=== PATIENT | male | born 1970 | race Two or more races ===

== ENCOUNTER 2017-04-29 19:31 | Inpatient (IN) | payer MEDICAID ==
[~2017-04-29] VITALS: Ht 172.7 cm; Wt 95.8 kg
[~2017-04-29 19:31] MED LIST: ALBUTEROL SULFAT2 MG TRANSTR092; ALBUTEROL2.5 MG/3 M INH; ARGININE HCL MC; ARTIFICIAL TEAR15 ML BOTH EYES; ATIVAN2 MG/ML IM; CEFEPIME 22 GM/100 M IV; CEFEPIME-D2 GM/50 ML IVPB; CENTAMIN L9 MG/15 ML GT; DUONEB 0.5-3(2.53 ML HHN; FERROUS SU300 MG/5 M GT; FLAGYL500 MG GT; FLUCONAZOL200 MG/100 IV; HEPARIN SO5000 UNIT2 SUBQ; HUMALOG100 UNIT/4 SUBQ; INVANZ1 GM IVPB; KEPPRA LIQ100 MG/1 M GT; LANTUS SOL100 UNIT/1 SUBQ; LANTUS5 UNITS SUBQ; LOVENOX10 M4 SUBQ; MAGNESIUM OXID400 M1 GT; MAGNESIUM OXID500 M1 GT; MILK OF MA2400 MG/10 ORAL; MILK OF MA400 MG/51 GT; MIRALAX17 GM ORAL; MUCOMYST200 MG/ML TRANSTR092; MULTI-DELYN237 ML GT; NEXIUM40 M2 GT; POTASSIUM CHLO20 ME2 ORAL; RANITIDINE HCL150 MG GT; THIAMINE HCL100 MG GT; TYLOPHEN500 MG PO; VANCOMYCIN1 GM/2502 IVPB; VITAMIN B-1100 MG GT; VITAMIN C500 M1 GT; VITAMIN C500 MG/11 GT; VITAMIN D1000 UNI1 GT; ZINC SULFATE220 M1 GT; ZOFRAN4 M1 IM; ZOFRAN4 M3 GT; ZOFRAN4 MG GT; ZOSYN 3.373.375 GM/1 IVPB
[2017-04-29 20:00] VITALS: BP 136/110
[2017-04-29 21:00] VITALS: BP 138/101
[2017-04-29 21:03] LABS: MEAN CORPUSCULAR HGB CONC 29.9 G/DL (32.0-36.0); MEAN CORPUSCULAR VOLUME 94 FL (80-99); MEAN PLATELET VOLUME 8.8 FL (6.5-10.1); PLATELET COUNT 379 K/UL (150-450); RED BLOOD COUNT 5.09 M/UL (4.70-6.10); RED CELL DISTRIBUTION WIDTH 14.9 % (11.6-14.8)
--- NOTE | 2017-04-29 21:06 | Emergency Room Report ---
History of Present Illness General Chief Complaint: Fever Source: Patient, Medical Record, EMS Present Illness HPI 46-year-old male, trach, vent dependent, G2, neurogenic bowel, bedbound nonverbal, diabetes, epilepsy, ? Rights sided pleural effusion with catheter, came in with [facility], coming from jail for fever Patient noted to be diaphoretic and tachypnea, no other history is able to be obtained by the patient Patient is full code Allergies: Coded Allergies: NO KNOWN ALLERGIES (Unverified Allergy, Unknown, 01/27/15) NO KNOWN DRUG ALLERGIES (Unverified Allergy, Unknown, 06/28/15) Patient History Past Medical History: see triage record Past Surgical History: none Pertinent Family History: none Reviewed Nursing Documentation: PMH: Agreed, PSxH: Agreed Nursing Documentation-PMH Hx Cardiac Problems: Yes - Trachostomy, sepsis, epilepsy Hx Hypertension: Yes Hx Asthma: Yes Hx COPD: Yes Hx Diabetes: Yes Hx Cancer: No Hx Gastrointestinal Problems: Yes - dysphagia Hx Neurological Problems: Yes Hx Cerebrovascular Accident: Yes Hx Seizures: Yes Hx Epilepsy: Yes Hx Paralysis: Yes Hx Memory Loss: Yes Hx Concentration Difficulty: Yes Hx Speech Problem: Yes - tracheostomy Hx Aphasia: Yes Hx Dysphasia: Yes Hx Weakness: Yes Review of Systems All Other Systems: negative except mentioned in HPI Physical Exam Vital Signs Date Time Temp Pulse Resp B/P (MAP) Pulse Ox O2 Delivery O2 Flow Rate FiO2 04/29/17 19:42 99.0 112 30 136/92 98 Mechanical Ventilator 30 Sp02 EP Interpretation: reviewed, normal General Appearance: severe distress, other - Chronically ill-appearing overweight male, nonverbal, trach, in respiratory distress, diaphoretic Head: normocephalic, atraumatic Eyes: bilateral eye normal inspection, bilateral eye PERRL, bilateral eye EOMI ENT: other - +trach'ed Neck: other - +trach'ed Respiratory: other - +resp distress, vent, mech b/s b/l, tachypneic, +R sided thoracentesis catheter? Cardiovascular #1: normal peripheral pulses, tachycardia Cardiovascular #2: 2+ radial (R), 2+ radial (L) Gastrointestinal: other - +G tube in place, abdomen distended Genitourinary: other - byrnes in place Musculoskeletal: other - passive full ROM Neurologic: other - awake, nonverbal, not ff commands Skin: normal inspection, normal color, no rash, warm/dry, well hydrated, normal turgor Procedures Critical Care Time Critical Care Time 40 minutes of CC time 46-year-old male, fever VS: febrile, tachycardic PLAN: IV access, labs, lactate, troponin, Blood/Urine Cx, Abx, IVF Anticipate admission to Tele vs. [facility] CC time also includes review of labs, review of EMR, discussion with family and paperwork from SNF, d/w hospitalist CC could include dosing of pressors, additional Abx CC time does not include procedures Medical Decision Making Diagnostic Impression: Primary Impression: Severe sepsis Additional Impressions: UTI (urinary tract infection) Respiratory failure Tracheostomy dependence ER Course 46-year-old male, coming from jail, trach, vent, fever DDX: Sepsis 2/2 UTI, PNA, bacteremia, will also consider intra-abdominal pathology such as colitis / diverticulitis / acalculous cholecystitis if no other course found Plan: IV access - 30cc/kg bolus NS Obtain labs including cbc, bmp, blood culture, blood gas, lactate, ua, ucx CXR EKG Broad spectrum ABX ER course: Patient with tracheostomy, connected to a ventilator Patient given NS at 30cc/kg bolus Patient's BP has remained stable with MAP > 65 Given broad spectrum abx - vancomycin and zosyn Likely source is UTI Sepsis Re-examination Time: 9:50 VS: Temp 99 HR 120 BP 137/110 RR 25 CVS: RRR Respiratory: mech b/s b/l Peripheral pulses: 2+ radial Capillary refill: <2 seconds Skin exam: warm, dry, no rash, not mottled Disposition: Patient will admitted to ICU Patient requires close monitoring of respiratory/hemodynamic status and continuation of IV antibiotics. D/W Hospitalist Dr Granda (who is covering for Dr Wallace) Please note that this Emergency Department Report was dictated using [employer] technology software, occasionally this can lead to erroneous entry secondary to interpretation by the dictation equipment. EKG Diagnostic Results EP Interpretation: Yes Rate: tachy Rhythm: NSR ST Segments: poor ekg quality due to moving, tried mult times, however no obvious acute STT changes ASA given to patient: No Rhythm Strip EP Interpretation: Yes Rate: 140 Rhythm: NSR, no PVCs, no ectopy Chest X-ray CXR: Ordered: Yes 1 view Indication: Fever EP interpretation: Yes Interpretation: cardiomegaly, trach noted Impression: cardiomegaly Electronically signed by Armand Salcido MD Last Vital Signs Date Time Temp Pulse Resp B/P (MAP) Pulse Ox O2 Delivery O2 Flow Rate FiO2 04/29/17 20:46 89 45 30 04/29/17 19:42 99.0 136/92 98 Mechanical Ventilator Disposition: ADMITTED INPATIENT Condition: Critical Referrals: MEGHA WALLACE (PCP) Armand Salcido M.D. Apr 29, 2017 21:06
[2017-04-29 21:10] LABS: APPEARANCE,URINE SLIGHTLY CLOUDY; KETONES,URINE NEGATIVE (NEGATIVE); LEUKOCYTE ESTERASE ,URINE 3+ (NEGATIVE); NITRITE,URINE POSITIVE (NEGATIVE); PH,URINE 6 (4.5-8.0); PROTEIN,URINE 3+ (NEGATIVE); UROBILINOGEN,URINE NORMAL MG/DL (0.0-1.0)
[2017-04-29 21:18] LABS: ANION GAP 15 mmol/L (5-15); CALCIUM 10.7 MG/DL (8.5-10.1); CARBON DIOXIDE 26 MMOL/L (21-32); CHLORIDE 98 MMOL/L (98-107); CREATININE 0.8 MG/DL (0.55-1.30); GLOMERULAR FILTRATION RATE > 60 mL/min (>60); POTASSIUM 5.1 MMOL/L (3.5-5.1); SODIUM 139 MMOL/L (136-145)
[2017-04-29 21:21] LABS: AMORPHOUS SEDIMENT,UR FEW /LPF; BACTERIA,URINE MODERATE /HPF; RBC,URINE 15-20 /HPF (0 - 0)
[2017-04-29] MEDS ORDERED: Zosyn 3.375gm inj ONE (21:25)
[2017-04-29 21:28] LABS: REFLEX LACTIC ACID YES OR NO YES
[2017-04-29] MEDS ORDERED: Piperacillin/Tazobactam 3.375 GM in NS 55 ML IV ONE (21:30)
[2017-04-29] MEDS ORDERED: NS 1000ml 2,600 ML IVLG ONE (21:30)
[2017-04-29] MEDS ORDERED: Vancomycin 1.5gm/D5W 250ml 250 ML IVPB ONE (21:30)
[2017-04-29] MEDS ORDERED: Acetaminophen 650 MG SUPP RECTAL ONE (21:30)
[2017-04-29 21:33] LABS: ALANINE AMINOTRANSFERASE 98 U/L (12-78); ALBUMIN/GLOBULIN RATIO 0.5 (1.0-2.7); ASPARTATE AMINO TRANSFERASE 41 U/L (15-37); CKMB 1.3 NG/ML (0.0-3.6); TOTAL PROTEIN 10.5 G/DL (6.4-8.2)
[2017-04-29 22:00] VITALS: BP 134/94
[2017-04-29 22:36] LABS: BAND NEUTROPHILS % (MANUAL) 0 % (0-8); BASOPHILS % (MANUAL) 1 % (0-2); EOSINOPHILS % (MANUAL) 1 % (0-3); LYMPHOCYTES % (MANUAL) 25 % (20-45); NEUTROPHILS % (MANUAL) 66 % (45-75); PLATELET ESTIMATE ADEQUATE; PLATELET MORPHOLOGY NORMAL; TOTAL CELLS COUNTED 100
[2017-04-29 22:44] LABS: ABG ALLEN TEST POSITIVE; ABG BASE EXCESS -4.9; ABG PCO2 32.7 mmHg (35.0-45.0)
[2017-04-29 23:00] VITALS: BP 130/84
[2017-04-30] VITALS (22 sets, daily range): BP systolic 93–131; BP diastolic 50–93
[2017-04-30] MEDS ORDERED: Acetaminophen 650 MG SUPP RECTAL ONE (03:00)
[2017-04-30] MEDS ORDERED: ACETAMINOP160 MG/5 M ORAL ×2 (04:25)
[2017-04-30] MEDS ORDERED: CRANBERRY JUIC425 MG PO (04:26)
[2017-04-30] MEDS ORDERED: LACTULOSE20 GM/301 ORAL (05:01)
[2017-04-30] MEDS ORDERED: METFORMIN HCL1000 M1 GT (05:01)
[2017-04-30] MEDS ORDERED: LEVAQUIN500 MG GT (05:01)
[2017-04-30] MEDS ORDERED: Albuterol/Ipratropium 3ml neb HHN PRN (09:15)
--- NOTE | 2017-04-30 09:29 | Pulmonolgy Critical Care Note ---
Critical Care - Asmt/Plan Problems: (1) Sepsis (2) Acute and chronic respiratory failure (3) Pneumonia (4) Chronic vegetative state (5) Status post tracheostomy (6) Wound of sacral region (7) Chronic complete quadriplegia (8) Respiratory failure (9) Ventilator dependent (10) UTI (urinary tract infection) (11) Fever Assessment/Plan: -ICU care -IVF hydration, monitor vitals, justin LA -F/U ECG/trop, F/U TTE -Continue ventilatory support, settings reviewed -CXR -Start Erta/Flagyl/vanco/flucon based on current O/P list + F/U Cx's (urine, trach, blood, pleural) & await ID recs -Optimize pulmonary hygiene/mobilize as tolerated -RTC and PRN DUOnebs -Start TF's, monitor residuals -Continue AED's -DVT Px: Hep SQ -Wound care -Monitor volumes -F/C, discuss GOC cc 60 min Critical Care - Objective Last 24 Hour Vital Signs Date Time Temp Pulse Resp B/P (MAP) Pulse Ox O2 Delivery O2 Flow Rate FiO2 04/30/17 08:20 99.2 115 18 113/87 100 Mechanical Ventilator 30 04/30/17 07:16 98 18 30 04/30/17 06:19 99.2 115 21 113/87 100 Mechanical Ventilator 30 04/30/17 05:40 102 21 30 04/30/17 05:15 99.6 110 18 111/78 100 Mechanical Ventilator 30 04/30/17 04:59 99.6 04/30/17 04:09 100.5 121 18 107/50 100 Mechanical Ventilator 30 04/30/17 03:38 112 18 30 04/30/17 03:10 101.6 122 18 131/92 100 Mechanical Ventilator 30 04/30/17 02:00 99.6 119 18 128/93 100 Mechanical Ventilator 30 04/30/17 01:32 121 18 30 04/30/17 01:05 99.4 119 24 128/93 100 Mechanical Ventilator 30 04/30/17 00:05 99.4 115 20 131/90 100 Mechanical Ventilator 30 04/29/17 23:41 115 47 30 04/29/17 23:00 99.4 120 24 130/84 100 Mechanical Ventilator 30 04/29/17 22:36 99.4 04/29/17 22:00 99.0 118 24 134/94 100 Mechanical Ventilator 30 04/29/17 21:00 99.1 122 28 138/101 100 Mechanical Ventilator 30 04/29/17 20:46 89 45 30 04/29/17 20:03 97 33 30 04/29/17 20:00 30 04/29/17 20:00 99.1 132 30 136/110 100 Mechanical Ventilator 30 04/29/17 19:42 99.0 112 30 136/92 98 Mechanical Ventilator 30 Status: awake, other - non-verbal Condition: critical HEENT: atraumatic, normocephalic Neck: trach Lungs: rhonchi, other - R pigtal pleural catheter Heart: HR/BP stable Abdomen: soft, non-tender, active bowel sounds, feeding tube Extremities: no C/C/E Accucheck: 170 Critical Care - Subjective ROS Limited/Unobtainable: Yes ICU Day: 1 Intubation Day: trach Interval Events: 46 m PVC, h/o multiple resistant infections, PEG/TRACH + R pigtail pleural indwelling catheter BIB EMS from SNF with Temp 104, Tm here 101.6, thick secretions, LA 8.5 now 4.0, stable on vent with minimal O2 needs, no hx obtainable from patient. SNF and ER records reviewed. S/P Pip-Tazo and Vanco in ED. FI02: 30 Vent Support Breath Rate: 12 Vent Support Mode: AC Vent Tidal Volume: 600 Sputum Amount: Moderate PEEP: 5.0 PIP: 40 I&O: Intake and Output 04/30/17 05/01/17 19:00 07:00 Intake Total 0 ml Balance 0 ml Intake Oral 0 ml ALLEGRA BRENNER M.D. Apr 30, 2017 09:29
[2017-04-30] MEDS ORDERED: Miralax 17gm pkt ORAL PRN (09:30)
[2017-04-30] MEDS ORDERED: Ertapenem 1 GM in NS 55 ML IVPB SCH (10:30)
[2017-04-30 11:37] LABS: REFLEX LACTIC ACID YES OR NO YES
[2017-04-30] MEDS: levETIRAcetam 500mg/5ml Liquid GT SCH ×2 (12:08→20:33)
[2017-04-30] MEDS: Artificial Tears 1.4% Op Soln BOTH EYES SCH ×3 (12:09→23:42)
[2017-04-30] MEDS: Vancomycin 1.5 GM/D5W 250ML IVPB SCH ×2 (12:09→23:43)
[2017-04-30] MEDS: NovoLOG Insulin Flexpen SUBQ SCH ×3 (12:13→20:43)
--- NOTE | 2017-04-30 12:30 | Consultation ---
Consult Note Consult Note ID DIC # [id number] RAMYA RECIO M.D. Apr 30, 2017 12:30
--- NOTE | 2017-04-30 12:53 | Diagnostic Imaging Report ---
Indication: Dyspnea Comparison: 04/10/2016 A single view chest radiograph was obtained. Findings: Linear densities at the lung bases likely atelectasis or scarring. Heart is borderline in size. There is a tracheostomy present. Bones are osteopenic. IMPRESSION: Basilar atelectasis and/or scarring
[2017-04-30] MEDS: Albuterol/Ipratropium 3ml neb HHN SCH ×2 (13:08→20:49)
[2017-04-30] MEDS: Meropenem 1 GM in NS 55 ML IVPB SCH ×2 (14:41→21:40)
--- NOTE | 2017-04-30 16:45 | Consultation ---
DATE OF CONSULTATION: 04/30/2017 INFECTIOUS DISEASE CONSULTATION CONSULTING PHYSICIAN: Esteban Payton M.D. REQUESTING PHYSICIAN: Honey Granda M.D. REASON FOR CONSULTATION: Evaluation of the patient for sepsis and antibiotic management. HISTORY OF PRESENT ILLNESS: The patient is a 46-year-old male with multiple medical problems, who was admitted to this medical center for fever. The patient was found to have mild drainage from the PleurX site. The patient has been started on IV antibiotics. An Infectious Disease consultation has been requested for further evaluation of the patient and antibiotic management. The patient is not able to provide information. Much of the information is gathered through the chart and speaking to the staff. PAST MEDICAL HISTORY: 1. CVA. 2. Seizure disorder. 3. Aphasia. 4. Status post trach. 5. Hypertension. 6. COPD/asthma. 7. Status post PEG placement. 8. Obesity. 9. Diabetes. 10. Anemia. 11. Ventilator-dependent respiratory failure. 12. Status post PleurX catheter (question underlying etiology). 13. Recent history of MRSA bacteremia with probable mitral valve endocarditis. MEDICATIONS: Vancomycin, Diflucan, and ertapenem. PHYSICAL EXAMINATION: VITAL SIGNS: Temperature 99.2, blood pressure 113/87, pulse 86, respiratory rate 18, and T-max 101.6. HEENT: No pale conjunctivae. No icterus. NECK: Trach in place. CHEST: Course breathing sounds. HEART: S1 and S2. ABDOMEN: Soft and obese. PEG tube in place. EXTREMITIES: No cyanosis. SKIN: The patient has stage II decubitus in the sacral area. No sign of infection. PleurX site has mild erythema with mild purulent discharge. ASSESSMENT: 1. Sepsis. 2. Fever. 3. Leukocytosis. 4. History of methicillin-resistant Staphylococcus aureus bacteremia with possible mitral valve endocarditis. 5. History of acute renal failure (? possible due to vancomycin). 6. History of extended-spectrum beta-lactamase Escherichia coli and urinary tract infection. 7. Sacral decubitus, no sign of infection. 8. Possible PleurX catheter site infection. PLAN: 1. We will continue the patient on IV vancomycin for now (we will monitor creatinine closely). 2. Change Diflucan and Invanz to meropenem. 3. Monitor CBC. 4. Monitor BMP. 5. Culture from the PleurX site. 6. Culture from pleural effusion (it is mildly cloudy and greenish). 7. Monitor blood culture. 8. Monitor sputum culture. 9. Monitor urine culture. 10. Repeat sacral evaluation of possible vegetation. 11. Continue vent support. 12. Based on the patient's clinical course and laboratories, we will do further recommendation. Thank you, Dr. Granda, for allowing me to participate in the care of this patient. I will follow the patient with you during this hospitalization. Esteban Payton M.D. DR: RAIN JOB#: [id number] CC:
[2017-04-30] MEDS: metFORMIN 500mg tab GT SCH (18:04)
[2017-04-30] MEDS: Lactulose 20gm/30ml UDC ORAL SCH (18:04)
[2017-04-30] MEDS: Ferrous Sulfate 300 MG/5 ML UDC GT SCH (18:04)
[2017-04-30] MEDS: Levemir Flexpen SUBQ SCH (20:39)
[2017-04-30] MEDS: Heparin 5000 units/ml inj SUBQ SCH (20:46)
[2017-05-01] VITALS (24 sets, daily range): BP systolic 86–118; BP diastolic 54–74
[2017-05-01] MEDS: Albuterol/Ipratropium 3ml neb HHN SCH ×4 (01:30→19:57)
[2017-05-01] MEDS: Meropenem 1 GM in NS 55 ML IVPB SCH ×3 (06:14→21:35)
[2017-05-01] MEDS: Artificial Tears 1.4% Op Soln BOTH EYES SCH ×3 (06:15→17:02)
[2017-05-01] MEDS: NovoLOG Insulin Flexpen SUBQ SCH ×3 (06:21→17:48)
--- NOTE | 2017-05-01 08:22 | History & Physical ---
History and Physical History & Physicial patient is seen and examined. Dictation completed Honey Granda MD May 01, 2017 08:22
[2017-05-01] MEDS: Lactulose 20gm/30ml UDC ORAL SCH ×2 (09:07→17:03)
[2017-05-01] MEDS: Ferrous Sulfate 300 MG/5 ML UDC GT SCH ×2 (09:07→17:02)
[2017-05-01] MEDS: Thiamine 100mg tab GT SCH (09:08)
[2017-05-01] MEDS: levETIRAcetam 500mg/5ml Liquid GT SCH ×2 (09:08→20:56)
[2017-05-01] MEDS: Zinc Sulfate 220mg cap GT SCH (09:08)
[2017-05-01] MEDS: metFORMIN 500mg tab GT SCH ×2 (09:08→17:02)
[2017-05-01] MEDS: Ascorbic Acid 500mg tab GT SCH (09:08)
[2017-05-01] MEDS: Heparin 5000 units/ml inj SUBQ SCH ×2 (09:09→20:58)
--- NOTE | 2017-05-01 09:23 | Pulmonolgy Critical Care Note ---
Critical Care - Asmt/Plan Problems: (1) Sepsis (2) Acute and chronic respiratory failure (3) Pneumonia (4) Chronic vegetative state (5) Status post tracheostomy (6) Wound of sacral region (7) Chronic complete quadriplegia (8) Respiratory failure (9) Ventilator dependent (10) UTI (urinary tract infection) (11) Fever Assessment/Plan: -F/U AML and ABG -IVF hydration, monitor vitals -F/U TTE -Continue ventilatory support, settings reviewed, check ABG and adjust accordingly -Abx per ID, F/U Cx's -Optimize pulmonary hygiene/mobilize as tolerated -RTC and PRN DUOnebs -TF's as tolerated -Continue AED's -DVT Px: Hep SQ -Wound care -Monitor volumes -F/C, discuss GOC cc 45 min Critical Care - Objective Last 24 Hour Vital Signs Date Time Temp Pulse Resp B/P (MAP) Pulse Ox O2 Delivery O2 Flow Rate FiO2 05/01/17 08:00 30 05/01/17 08:00 98.3 76 16 92/54 97 Mechanical Ventilator 30 05/01/17 07:44 85 12 66 Mechanical Ventilator 05/01/17 07:28 79 12 100 30 05/01/17 07:25 79 12 30 05/01/17 07:00 93 16 100/63 99 Mechanical Ventilator 30 05/01/17 06:00 93 16 92/60 99 Mechanical Ventilator 30 05/01/17 05:41 101 16 30 05/01/17 05:00 93 16 100/67 99 Mechanical Ventilator 30 05/01/17 04:00 98.6 83 16 95/67 99 Mechanical Ventilator 30 05/01/17 04:00 90 05/01/17 04:00 30 05/01/17 03:00 93 16 105/66 99 Mechanical Ventilator 30 05/01/17 02:44 94 20 30 05/01/17 02:00 93 16 92/67 99 Mechanical Ventilator 30 05/01/17 01:48 98 17 100 Mechanical Ventilator 30 05/01/17 01:31 30 05/01/17 01:31 87 16 30 05/01/17 01:31 88 32 100 30 05/01/17 01:00 84 20 94/69 99 Mechanical Ventilator 30 05/01/17 00:00 81 05/01/17 00:00 98.5 82 20 90/66 99 Mechanical Ventilator 30 05/01/17 00:00 30 04/30/17 23:00 79 12 93/72 99 Mechanical Ventilator 30 04/30/17 22:00 81 12 95/67 99 Mechanical Ventilator 30 04/30/17 21:00 85 12 95/67 99 Mechanical Ventilator 30 04/30/17 20:49 87 13 30 04/30/17 20:48 87 15 100 30 04/30/17 20:48 88 17 100 Mechanical Ventilator 30 04/30/17 20:48 30 04/30/17 20:36 97 14 30 04/30/17 20:00 30 04/30/17 20:00 97.4 84 14 97/64 100 Mechanical Ventilator 30 04/30/17 20:00 78 04/30/17 20:00 94 04/30/17 19:00 86 12 101/66 100 Mechanical Ventilator 30 04/30/17 18:00 79 12 101/66 100 Mechanical Ventilator 30 04/30/17 16:51 93 18 30 04/30/17 16:00 97.4 94 12 108/73 100 Mechanical Ventilator 30 04/30/17 16:00 30 04/30/17 16:00 94 04/30/17 15:00 98 13 108/74 100 Mechanical Ventilator 30 04/30/17 14:31 97 20 30 04/30/17 14:00 107 14 106/78 100 Mechanical Ventilator 30 04/30/17 13:16 101 16 100 Mechanical Ventilator 30 04/30/17 13:09 105 20 100 30 04/30/17 13:08 105 20 30 04/30/17 13:00 107 14 104/75 100 Mechanical Ventilator 30 04/30/17 12:00 30 04/30/17 12:00 100.4 107 19 110/93 94 Mechanical Ventilator 30 04/30/17 12:00 117 04/30/17 11:00 104 14 109/69 100 Mechanical Ventilator 30 04/30/17 10:38 104 21 30 04/30/17 10:00 105 13 103/72 100 Mechanical Ventilator 30 04/30/17 09:29 108 21 30 Status: obtunded Condition: critical HEENT: atraumatic, normocephalic Neck: trach Lungs: chest wall tender Heart: HR/BP stable Abdomen: soft, non-tender, active bowel sounds, feeding tube Extremities: no C/C/E Decubiti: location - sacral\, stage Micro: Microbiology Date/Time Source Procedure Growth Status 04/29/17 20:35 Blood Blood Culture - Preliminary NO GROWTH AFTER 24 HOURS Resulted 04/29/17 20:30 Blood Blood Culture - Preliminary NO GROWTH AFTER 24 HOURS Resulted 04/29/17 20:30 Urine,Clean Catch Urine Culture - Preliminary Gram Negative Bacillus 1 Resulted Accucheck: 192 Critical Care - Subjective ROS Limited/Unobtainable: Yes ICU Day: 2 Intubation Day: N/A trach Interval Events: LA resolved No sig secretions No AML GNB in urine, BCx still NG Condition: critical IV Access: PICC EKG Rhythm: Sinus Rhythm FI02: 30 Vent Support Breath Rate: 12 Vent Support Mode: AC Vent Tidal Volume: 600 Sputum Amount: Small PEEP: 5.0 PIP: 24 Secretions: No Sign Fluids: NS @ 100 Tube Feeding Amount: 40 I&O: Intake and Output 05/01/17 05/02/17 19:00 07:00 Intake Total 40 ml Output Total 45 ml Balance -5 ml Tube Feeding 40 ml Output Urine Total 45 ml CXR: NAD Labs: Laboratory Tests Test 04/30/17 10:40 Hemoglobin A1c 7.5 % (4.3-6.0) H Lactic Acid Level 2.20 mmol/L (0.66-2.22) Troponin I 0.000 ng/mL (0.000-0.056) ALLEGRA BRENNER M.D. May 01, 2017 09:23
[2017-05-01 10:15] LABS: ABG PCO2 38.9 mmHg (35.0-45.0)
[2017-05-01 10:16] LABS: ABG ALLEN TEST POSITIVE; ABG BASE EXCESS -0.7
--- NOTE | 2017-05-01 11:03 | Infectious Diseases Prog Note ---
Assessment/Plan Assessment/Plan ASSESSMENT: Sepsis. Fever, SP Leukocytosis UTI Ucx : GNR History of methicillin-resistant Staphylococcus aureus bacteremia with possible mitral valve endocarditis History of acute renal failure (? possible due to vancomycin) History of extended-spectrum beta-lactamase Escherichia coli and urinary tract infection Sacral decubitus, no sign of infection Possible PleurX catheter site infection. SP LACosis CVA. Seizure disorder. Aphasia. Status post trach. Hypertension. COPD/asthma. Status post PEG placement. Obesity. Diabetes. Anemia. Ventilator-dependent respiratory failure. Status post PleurX catheter (question underlying etiology). Recent history of MRSA bacteremia with probable mitral valve endocarditis PLAN: continue the patient on IV vancomycin for now (we will monitor creatinine closely) and meropenem d# 2 Monitor CBC Monitor BMP. Culture from the PleurX site. Culture from pleural effusion (it is mildly cloudy and greenish). Monitor blood culture. Monitor sputum culture. Monitor urine culture. Repeat Echo possible vegetation. Continue vent support. Subjective Allergies: Coded Allergies: NO KNOWN ALLERGIES (Unverified Allergy, Unknown, 01/27/15) NO KNOWN DRUG ALLERGIES (Unverified Allergy, Unknown, 06/28/15) Subjective Afebrile Objective Vital Signs Last 24 Hour Vital Signs Date Time Temp Pulse Resp B/P (MAP) Pulse Ox O2 Delivery O2 Flow Rate FiO2 05/01/17 10:00 77 16 90/58 95 Mechanical Ventilator 30 05/01/17 09:45 77 12 30 05/01/17 09:00 79 16 86/56 96 Mechanical Ventilator 30 05/01/17 08:00 30 05/01/17 08:00 98.3 76 16 92/54 97 Mechanical Ventilator 30 05/01/17 08:00 80 05/01/17 07:44 85 12 66 Mechanical Ventilator 05/01/17 07:28 79 12 100 30 05/01/17 07:25 79 12 30 05/01/17 07:00 93 16 100/63 99 Mechanical Ventilator 30 05/01/17 06:00 93 16 92/60 99 Mechanical Ventilator 30 05/01/17 05:41 101 16 30 05/01/17 05:00 93 16 100/67 99 Mechanical Ventilator 30 05/01/17 04:00 98.6 83 16 95/67 99 Mechanical Ventilator 30 05/01/17 04:00 90 05/01/17 04:00 30 05/01/17 03:00 93 16 105/66 99 Mechanical Ventilator 30 05/01/17 02:44 94 20 30 05/01/17 02:00 93 16 92/67 99 Mechanical Ventilator 30 05/01/17 01:48 98 17 100 Mechanical Ventilator 30 05/01/17 01:31 30 05/01/17 01:31 87 16 30 05/01/17 01:31 88 32 100 30 05/01/17 01:00 84 20 94/69 99 Mechanical Ventilator 30 05/01/17 00:00 81 05/01/17 00:00 98.5 82 20 90/66 99 Mechanical Ventilator 30 05/01/17 00:00 30 04/30/17 23:00 79 12 93/72 99 Mechanical Ventilator 30 04/30/17 22:00 81 12 95/67 99 Mechanical Ventilator 30 04/30/17 21:00 85 12 95/67 99 Mechanical Ventilator 30 04/30/17 20:49 87 13 30 17 20:48 87 15 100 30 04/30/17 20:48 88 17 100 Mechanical Ventilator 30 04/30/17 20:48 30 17 20:36 97 14 30 18/17 20:00 30 17 20:00 97.4 84 14 97/64 100 Mechanical Ventilator 30 04/30/17 20:00 78 17 20:00 94 18/17 19:00 86 12 101/66 100 Mechanical Ventilator 30 17 18:00 79 12 101/66 100 Mechanical Ventilator 30 17 16:51 93 18 30 17 16:00 97.4 94 12 108/73 100 Mechanical Ventilator 30 18/17 16:00 30 18/17 16:00 94 18/17 15:00 98 13 108/74 100 Mechanical Ventilator 30 04/30/17 14:31 97 20 30 18/17 14:00 107 14 106/78 100 Mechanical Ventilator 30 18/17 13:16 101 16 100 Mechanical Ventilator 30 18/17 13:09 105 20 100 30 18/17 13:08 105 20 30 18/17 13:00 107 14 104/75 100 Mechanical Ventilator 30 18/17 12:00 30 17 12:00 100.4 107 19 110/93 94 Mechanical Ventilator 30 04/30/17 12:00 117 Height (Feet): 5 Height (Inches): 8.00 Weight (Pounds): 189 HEENT: mucous membranes moist Respiratory/Chest: normal breath sounds Cardiovascular: regular rhythm Abdomen: non distended Microbiology Date/Time Source Procedure Growth Status 04/29/17 20:35 Blood Blood Culture - Preliminary NO GROWTH AFTER 24 HOURS Resulted 04/29/17 20:30 Blood Blood Culture - Preliminary NO GROWTH AFTER 24 HOURS Resulted 04/29/17 20:30 Urine,Clean Catch Urine Culture - Preliminary Gram Negative Bacillus 1 Resulted Laboratory Tests Test 05/01/17 10:10 Arterial Blood pH 7.406 (7.350-7.450) Arterial Blood Partial Pressure CO2 38.9 mmHg (35.0-45.0) Arterial Blood Partial Pressure O2 175.5 mmHg (75.0-100.0) H Arterial Blood HCO3 23.9 mmol/L (22.0-26.0) Arterial Blood Oxygen Saturation 98.5 % (92.0-98.0) H Arterial Blood Base Excess -0.7 Donald Test Positive Current Medications Medications (Trade) Dose Ordered Sig/Tony Route PRN Reason Start Time Stop Time Status Last Admin Dose Admin Acetaminophen (Tylenol) 650 mg Q4H PRN ORAL Mild Pain/Temp > 100.5 04/30/17 09:15 05/30/17 09:14 Albuterol/ Ipratropium (Albuterol/ Ipratropium) 3 ml Q4H PRN HHN Shortness of Breath 04/30/17 09:15 05/05/17 09:14 Albuterol/ Ipratropium (Albuterol/ Ipratropium) 3 ml Q6HRT HHN 04/30/17 13:00 05/05/17 12:59 05/01/17 07:24 Artificial Tears (Akwa-Tears) 1 drop EVERY 6 HOURS BOTH EYES 04/30/17 12:00 05/30/17 11:59 05/01/17 06:15 Ascorbic Acid (Vitamin C) 500 mg DAILY GT 05/01/17 09:00 05/31/17 08:59 05/01/17 09:08 Dextrose (Dextrose 50%) STAT PRN IV Hypoglycemia 04/30/17 09:30 05/30/17 09:29 Ferrous Sulfate (Feosol) 450 mg BID GT 04/30/17 18:00 05/30/17 17:59 05/01/17 09:07 Heparin Sodium (Porcine) (Heparin 5000 units/ml) 5,000 units EVERY 12 HOURS SUBQ 04/30/17 21:00 05/30/17 20:59 05/01/17 09:09 Insulin Aspart (NovoLOG) Q6HR SUBQ 05/01/17 12:00 05/30/17 11:29 Insulin Detemir (Levemir) 10 units BEDTIME SUBQ 04/30/17 21:00 05/30/17 20:59 04/30/17 20:39 Lactulose (Cephulac) 20 gm BID ORAL 04/30/17 18:00 05/30/17 17:59 05/01/17 09:07 Levetiracetam (Keppra) 500 mg Q12HR GT 04/30/17 10:00 05/30/17 09:59 05/01/17 09:08 Meropenem 1 gm/ Sodium Chloride 55 ml @ 110 mls/hr Q8HR IVPB 04/30/17 14:00 05/05/17 13:59 05/01/17 06:14 Metformin HCl (Glucophage) 1,000 mg BID GT 04/30/17 18:00 05/30/17 17:59 05/01/17 09:08 Ondansetron HCl (Zofran) 4 mg Q6H PRN IVP Nausea & Vomiting 04/30/17 09:15 05/30/17 09:14 Polyethylene Glycol (Miralax) 17 gm DAILYPRN PRN ORAL Constipation 04/30/17 09:30 05/30/17 09:29 Ranitidine HCl (Zantac) 150 mg TWICE A DAY ORAL 04/30/17 18:00 05/30/17 17:59 05/01/17 09:08 Sodium Chloride 1,000 ml @ 100 mls/hr Q10H IV 04/30/17 10:30 05/30/17 10:29 05/01/17 06:27 Thiamine HCl (Vitamin B1) 100 mg DAILY GT 05/01/17 09:00 05/31/17 08:59 05/01/17 09:08 Vancomycin HCl (Vanco rx to dose) 1 ea DAILY PRN MISC Per rx protocol 04/30/17 09:15 05/30/17 09:14 Vancomycin HCl/ Dextrose 250 ml @ 125 mls/hr Q12HR@0000,1200 IVPB 04/30/17 12:00 05/05/17 11:59 04/30/17 23:43 Zinc Sulfate (Zinc Sulfate) 220 mg DAILY GT 05/01/17 09:00 05/31/17 08:59 05/01/17 09:08 RAMYA RECIO M.D. May 01, 2017 11:03
[2017-05-01 11:12] LABS: BASOPHILS % (AUTO) 0.8 % (0.0-2.0); EOSINOPHILS % (AUTO) 2.6 % (0.0-3.0); LYMPHOCYTES % (AUTO) 22.1 % (20.0-45.0); MEAN CORPUSCULAR HEMOGLOBIN 30.1 PG (27.0-31.0); MEAN CORPUSCULAR HGB CONC 32.7 G/DL (32.0-36.0); MEAN CORPUSCULAR VOLUME 92 FL (80-99); MEAN PLATELET VOLUME 9.8 FL (6.5-10.1); MONOCYTES % (AUTO) 8.9 % (1.0-10.0); NEUTROPHILS % (AUTO) 65.6 % (45.0-75.0); PLATELET COUNT 265 K/UL (150-450); RED BLOOD COUNT 3.35 M/UL (4.70-6.10); RED CELL DISTRIBUTION WIDTH 14.8 % (11.6-14.8); WHITE BLOOD COUNT 9.5 K/UL (4.8-10.8)
[2017-05-01 11:24] LABS: ANION GAP 10 mmol/L (5-15); CALCIUM 9.1 MG/DL (8.5-10.1); CARBON DIOXIDE 24 MMOL/L (21-32); CHLORIDE 105 MMOL/L (98-107); CREATININE 0.5 MG/DL (0.55-1.30); GLOMERULAR FILTRATION RATE > 60 mL/min (>60); POTASSIUM 3.7 MMOL/L (3.5-5.1); SODIUM 139 MMOL/L (136-145)
[2017-05-01] MEDS: Vancomycin 1.5 GM/D5W 250ML IVPB SCH (11:50)
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
--- NOTE | 2017-05-01 16:15 | History and Physical Report ---
DATE OF ADMISSION: 04/29/2017 SOURCE OF INFORMATION: Electronic medical record. HISTORY OF PRESENT ILLNESS: The patient is a 46-year-old male, who is bedbound, on PEG and tube. Source, not communicating verbally. Limited source of information. [facility]. He was noted to be diaphoretic and with tachycardia, otherwise, rest of information is not obtainable. PAST MEDICAL HISTORY: Hypertension, asthma, COPD, diabetes, dysphagia, seizure disorder, and quadriplegia. MEDICATIONS: Current hospital medications including, but not limited to DuoNeb, ferrous sulfate, sliding scale insulin, lactulose, Levemir, Keppra, and metformin. ALLERGIES: NKDA. SOCIAL HISTORY: Unobtainable. The patient [facility] in a [facility]it[facility]iary. REVIEW OF SYSTEMS: Not obtainable as above. PHYSICAL EXAMINATION: VITAL SIGNS: Blood pressure 95/60, temperature 98.2 degrees, pulse oximetry 98% on room air, pulse rate 80-90, T-max 101.6, maximum pulse rate 120. HEAD AND NECK: Atraumatic and normocephalic. Neck, tracheostomy in place. CHEST: Clear. No wheezing. HEART: S1 and S2. Sinus tachycardia. ABDOMEN: Soft. PEG tube in place. MUSCULOSKELETAL: Atrophic musculature, quadriplegia. NEUROLOGIC: The patient is not communicating verbally. The patient is awake. IMAGING: Chest x-ray dated 04/29/2017 shows bibasilar atelectasis. LABORATORY DATA: Labs dated 04/29/2017 shows WBC 18, hemoglobin 14.3, and platelets 379,000. Sodium 139, potassium 5.1, BUN 18, creatinine 0.8, and calcium 10.7. AST 41 and ALT 98. Urinalysis shows 5+ occult blood, 10 WBC, moderate bacteriuria. Urine culture positive for gram-negative bacilli. ASSESSMENT AND PLAN: 1. Healthcare-associated sepsis. 2. Gram negative healthcare-associated urinary infection. 3. Quadriplegia. 4. Dysphagia, status post percutaneous endoscopic gastrostomy tube. 5. Ventilator dependent respiratory failure, on tracheostomy. 6. Seizure disorder. 7. Abnormal liver function test. 8. Gastrointestinal and deep vein thrombosis prophylaxis. PLAN OF CARE: Notes from Infectious Disease and Pulmonary Critical Care are reviewed. Honey Granda M.D. DR: HERBERTH JOB#: [id number] CC:
[2017-05-01] MEDS: Vancomycin 1250mg/D5W 250ml IVPB SCH (19:47)
[2017-05-01] MEDS: Levemir Flexpen SUBQ SCH (20:57)
[2017-05-02] VITALS (17 sets, daily range): BP systolic 85–124; BP diastolic 47–84
[2017-05-02] MEDS: Artificial Tears 1.4% Op Soln BOTH EYES SCH ×5 (00:16→23:43)
[2017-05-02] MEDS: NovoLOG Insulin Flexpen SUBQ SCH ×5 (00:17→23:45)
[2017-05-02] MEDS: Albuterol/Ipratropium 3ml neb HHN SCH ×4 (01:48→19:07)
[2017-05-02] MEDS: Vancomycin 1250mg/D5W 250ml IVPB SCH ×2 (03:41→11:39)
[2017-05-02] MEDS: Meropenem 1 GM in NS 55 ML IVPB SCH ×3 (05:34→21:41)
[2017-05-02] MEDS: Heparin 5000 units/ml inj SUBQ SCH ×2 (09:00→21:10)
[2017-05-02] MEDS: Zinc Sulfate 220mg cap GT SCH (09:19)
[2017-05-02] MEDS: metFORMIN 500mg tab GT SCH ×2 (09:19→18:14)
[2017-05-02] MEDS: Thiamine 100mg tab GT SCH (09:19)
[2017-05-02] MEDS: Ferrous Sulfate 300 MG/5 ML UDC GT SCH ×2 (09:19→18:14)
[2017-05-02] MEDS: Ascorbic Acid 500mg tab GT SCH (09:20)
[2017-05-02] MEDS: levETIRAcetam 500mg/5ml Liquid GT SCH ×2 (09:20→21:11)
[2017-05-02] MEDS: Lactulose 20gm/30ml UDC ORAL SCH ×2 (09:20→18:14)
--- NOTE | 2017-05-02 09:45 | General Progress Note ---
Assessment/Plan Status: stable Assessment/Plan 1. Healthcare-associated sepsis. 2. Gram negative healthcare-associated urinary infection. 3. Quadriplegia. 4. Dysphagia, status post percutaneous endoscopic gastrostomy tube. 5. Ventilator dependent respiratory failure, on tracheostomy. 6. Seizure disorder. 7. Abnormal liver function test. 8. Gastrointestinal and deep vein thrombosis prophylaxis. Plan: current management Subjective ROS Limited/Unobtainable: Yes - intubated and sedated Allergies: Coded Allergies: NO KNOWN ALLERGIES (Unverified Allergy, Unknown, 01/27/15) NO KNOWN DRUG ALLERGIES (Unverified Allergy, Unknown, 06/28/15) Objective Last 24 Hour Vital Signs Date Time Temp Pulse Resp B/P (MAP) Pulse Ox O2 Delivery O2 Flow Rate FiO2 05/02/17 09:04 68 12 30 05/02/17 08:17 67 16 100 Mechanical Ventilator 30 05/02/17 08:07 69 20 100 Mechanical Ventilator 30 05/02/17 08:00 99.0 57 12 91/53 100 05/02/17 08:00 57 05/02/17 07:24 63 14 30 05/02/17 07:00 58 14 87/54 100 Mechanical Ventilator 30 05/02/17 06:00 72 18 111/69 100 Mechanical Ventilator 30 05/02/17 05:16 79 21 30 05/02/17 05:00 68 16 107/68 100 Mechanical Ventilator 30 05/02/17 04:00 30 05/02/17 04:00 98.1 67 14 85/56 100 Mechanical Ventilator 30 05/02/17 03:32 85 20 30 05/02/17 03:12 65 05/02/17 03:00 68 13 91/52 100 Mechanical Ventilator 30 05/02/17 02:00 70 16 99/62 100 Mechanical Ventilator 30 05/02/17 01:54 75 16 100 Mechanical Ventilator 30 05/02/17 01:48 88 16 100 Mechanical Ventilator 30 05/02/17 01:47 88 21 30 05/02/17 01:00 86 20 124/78 100 Mechanical Ventilator 30 05/02/17 00:00 30 05/02/17 00:00 98.7 77 17 111/73 100 Mechanical Ventilator 30 05/01/17 23:17 78 19 30 05/01/17 23:14 79 05/01/17 23:00 80 15 106/74 100 Mechanical Ventilator 30 05/01/17 22:00 83 16 101/65 100 Mechanical Ventilator 30 05/01/17 21:00 70 16 99/63 100 Mechanical Ventilator 30 05/01/17 20:34 71 16 30 05/01/17 20:33 71 17 100 Mechanical Ventilator 30 05/01/17 20:00 98.6 75 14 107/72 100 Mechanical Ventilator 30 05/01/17 20:00 30 05/01/17 19:57 75 22 100 Mechanical Ventilator 30 05/01/17 19:56 68 14 30 05/01/17 19:04 83 05/01/17 19:00 86 16 95/58 100 Mechanical Ventilator 30 05/01/17 18:00 86 16 101/67 100 Mechanical Ventilator 30 05/01/17 17:18 85 17 30 05/01/17 17:00 85 16 118/73 95 Mechanical Ventilator 30 05/01/17 16:00 98.3 83 16 105/71 100 Mechanical Ventilator 30 05/01/17 16:00 81 05/01/17 16:00 30 05/01/17 15:50 77 12 30 05/01/17 15:00 86 16 99/69 100 Mechanical Ventilator 30 05/01/17 14:02 82 12 100 Mechanical Ventilator 30 05/01/17 14:00 83 16 105/74 100 Mechanical Ventilator 30 05/01/17 13:36 86 15 100 Mechanical Ventilator 30 05/01/17 13:34 86 14 30 05/01/17 13:00 92 15 100/62 96 Mechanical Ventilator 30 05/01/17 12:00 30 05/01/17 12:00 98.5 99 16 95/60 100 Mechanical Ventilator 30 05/01/17 12:00 100 05/01/17 11:00 96 15 96/63 100 Mechanical Ventilator 30 05/01/17 10:58 95 18 30 05/01/17 10:00 77 16 90/58 95 Mechanical Ventilator 30 Intake and Output 05/02/17 05/03/17 19:00 07:00 Intake Total 45 ml Balance 45 ml Intake Oral 0 ml Tube Feeding 45 ml Laboratory Tests 05/01/17 10:10: Arterial Blood pH 7.406, Arterial Blood Partial Pressure CO2 38.9, Arterial Blood Partial Pressure O2 175.5H, Arterial Blood HCO3 23.9, Arterial Blood Oxygen Saturation 98.5H, Arterial Blood Base Excess -0.7, Donald Test Positive 05/01/17 10:50: White Blood Count 9.5, Red Blood Count 3.35L, Hemoglobin 10.1L, Hematocrit 30.8L , Mean Corpuscular Volume 92, Mean Corpuscular Hemoglobin 30.1, Mean Corpuscular Hemoglobin Concent 32.7, Red Cell Distribution Width 14.8, Platelet Count 265, Mean Platelet Volume 9.8, Neutrophils (%) (Auto) 65.6, Lymphocytes (% ) (Auto) 22.1, Monocytes (%) (Auto) 8.9, Eosinophils (%) (Auto) 2.6, Basophils ( %) (Auto) 0.8, Sodium Level 139, Potassium Level 3.7, Chloride Level 105, Carbon Dioxide Level 24, Anion Gap 10, Blood Urea Nitrogen 9, Creatinine 0.5L, Estimat Glomerular Filtration Rate > 60, Glucose Level 146H, Calcium Level 9.1, Vancomycin Level Trough 11.6 Height (Feet): 5 Height (Inches): 8.00 Weight (Pounds): 211 General Appearance: no apparent distress EENT: PERRL/EOMI, other - trach in place Cardiovascular: normal rate Respiratory/Chest: rhonchi - bilaterally Abdomen: soft, other - Peg in place Extremities: other - intubated and sedated Neurologic: other Honey Granda MD May 02, 2017 09:45
--- NOTE | 2017-05-02 10:01 | General Progress Note ---
Assessment/Plan Assessment/Plan 1. Healthcare-associated sepsis. 2. Gram negative healthcare-associated urinary infection. 3. Quadriplegia. 4. Dysphagia, status post percutaneous endoscopic gastrostomy tube. 5. Ventilator dependent respiratory failure, on tracheostomy. 6. Seizure disorder. 7. Abnormal liver function test. 8. Gastrointestinal and deep vein thrombosis prophylaxis. Plan: current management Subjective ROS Limited/Unobtainable: Yes Allergies: Coded Allergies: NO KNOWN ALLERGIES (Unverified Allergy, Unknown, 01/27/15) NO KNOWN DRUG ALLERGIES (Unverified Allergy, Unknown, 06/28/15) Objective Last 24 Hour Vital Signs Date Time Temp Pulse Resp B/P (MAP) Pulse Ox O2 Delivery O2 Flow Rate FiO2 05/02/17 09:04 68 12 30 05/02/17 08:17 67 16 100 Mechanical Ventilator 30 05/02/17 08:07 69 20 100 Mechanical Ventilator 30 05/02/17 08:00 99.0 57 12 91/53 100 05/02/17 08:00 57 05/02/17 07:24 63 14 30 05/02/17 07:00 58 14 87/54 100 Mechanical Ventilator 30 05/02/17 06:00 72 18 111/69 100 Mechanical Ventilator 30 05/02/17 05:16 79 21 30 05/02/17 05:00 68 16 107/68 100 Mechanical Ventilator 30 05/02/17 04:00 30 05/02/17 04:00 98.1 67 14 85/56 100 Mechanical Ventilator 30 05/02/17 03:32 85 20 30 05/02/17 03:12 65 05/02/17 03:00 68 13 91/52 100 Mechanical Ventilator 30 05/02/17 02:00 70 16 99/62 100 Mechanical Ventilator 30 05/02/17 01:54 75 16 100 Mechanical Ventilator 30 05/02/17 01:48 88 16 100 Mechanical Ventilator 30 05/02/17 01:47 88 21 30 05/02/17 01:00 86 20 124/78 100 Mechanical Ventilator 30 05/02/17 00:00 30 05/02/17 00:00 98.7 77 17 111/73 100 Mechanical Ventilator 30 05/01/17 23:17 78 19 30 05/01/17 23:14 79 05/01/17 23:00 80 15 106/74 100 Mechanical Ventilator 30 05/01/17 22:00 83 16 101/65 100 Mechanical Ventilator 30 05/01/17 21:00 70 16 99/63 100 Mechanical Ventilator 30 05/01/17 20:34 71 16 30 05/01/17 20:33 71 17 100 Mechanical Ventilator 30 05/01/17 20:00 98.6 75 14 107/72 100 Mechanical Ventilator 30 05/01/17 20:00 30 05/01/17 19:57 75 22 100 Mechanical Ventilator 30 05/01/17 19:56 68 14 30 05/01/17 19:04 83 05/01/17 19:00 86 16 95/58 100 Mechanical Ventilator 30 05/01/17 18:00 86 16 101/67 100 Mechanical Ventilator 30 05/01/17 17:18 85 17 30 05/01/17 17:00 85 16 118/73 95 Mechanical Ventilator 30 05/01/17 16:00 98.3 83 16 105/71 100 Mechanical Ventilator 30 05/01/17 16:00 81 05/01/17 16:00 30 05/01/17 15:50 77 12 30 05/01/17 15:00 86 16 99/69 100 Mechanical Ventilator 30 05/01/17 14:02 82 12 100 Mechanical Ventilator 30 05/01/17 14:00 83 16 105/74 100 Mechanical Ventilator 30 05/01/17 13:36 86 15 100 Mechanical Ventilator 30 05/01/17 13:34 86 14 30 05/01/17 13:00 92 15 100/62 96 Mechanical Ventilator 30 05/01/17 12:00 30 05/01/17 12:00 98.5 99 16 95/60 100 Mechanical Ventilator 30 05/01/17 12:00 100 05/01/17 11:00 96 15 96/63 100 Mechanical Ventilator 30 05/01/17 10:58 95 18 30 Intake and Output 05/02/17 05/03/17 19:00 07:00 Intake Total 45 ml Balance 45 ml Intake Oral 0 ml Tube Feeding 45 ml Laboratory Tests 05/01/17 10:10: Arterial Blood pH 7.406, Arterial Blood Partial Pressure CO2 38.9, Arterial Blood Partial Pressure O2 175.5H, Arterial Blood HCO3 23.9, Arterial Blood Oxygen Saturation 98.5H, Arterial Blood Base Excess -0.7, Donlad Test Positive 05/01/17 10:50: White Blood Count 9.5, Red Blood Count 3.35L, Hemoglobin 10.1L, Hematocrit 30.8L , Mean Corpuscular Volume 92, Mean Corpuscular Hemoglobin 30.1, Mean Corpuscular Hemoglobin Concent 32.7, Red Cell Distribution Width 14.8, Platelet Count 265, Mean Platelet Volume 9.8, Neutrophils (%) (Auto) 65.6, Lymphocytes (% ) (Auto) 22.1, Monocytes (%) (Auto) 8.9, Eosinophils (%) (Auto) 2.6, Basophils ( %) (Auto) 0.8, Sodium Level 139, Potassium Level 3.7, Chloride Level 105, Carbon Dioxide Level 24, Anion Gap 10, Blood Urea Nitrogen 9, Creatinine 0.5L, Estimat Glomerular Filtration Rate > 60, Glucose Level 146H, Calcium Level 9.1, Vancomycin Level Trough 11.6 Height (Feet): 5 Height (Inches): 8.00 Weight (Pounds): 211 General Appearance: no apparent distress EENT: other - limited eval as patient is not following commands Neck: other - trach in place Cardiovascular: normal rate Respiratory/Chest: crackles/rales, other - on vent Abdomen: soft, other - peg in place Extremities: other - limited eval as patient is not following commands Neurologic: other - awake, not following commands Honey Granda MD May 02, 2017 10:01
--- NOTE | 2017-05-02 11:11 | Pulmonolgy Critical Care Note ---
Critical Care - Asmt/Plan Problems: (1) Sepsis (2) Acute and chronic respiratory failure (3) Pneumonia (4) Chronic vegetative state (5) Status post tracheostomy (6) Wound of sacral region (7) Chronic complete quadriplegia (8) Respiratory failure (9) Ventilator dependent (10) UTI (urinary tract infection) (11) Fever Assessment/Plan: -D/C IVF -D/W ID, will F/U Cx's, pleural fluid not showing as pending - RN will F/U with lab -Continue ventilatory support --> D/W RT will start weaning vent -Optimize pulmonary hygiene/mobilize as tolerated -RTC and PRN DUOnebs -TF's as tolerated -Continue AED's -DVT Px: Hep SQ -Wound care -Monitor volumes -F/C, discuss GOC -Can transfer to [facility] cc 45 min Critical Care - Objective Last 24 Hour Vital Signs Date Time Temp Pulse Resp B/P (MAP) Pulse Ox O2 Delivery O2 Flow Rate FiO2 05/02/17 10:41 72 17 30 05/02/17 10:00 75 14 98/64 100 Mechanical Ventilator 05/02/17 09:04 68 12 30 05/02/17 09:00 76 14 116/47 92 05/02/17 08:17 67 16 100 Mechanical Ventilator 30 05/02/17 08:07 69 20 100 Mechanical Ventilator 30 05/02/17 08:00 99.0 57 12 91/53 100 05/02/17 08:00 57 05/02/17 07:24 63 14 30 05/02/17 07:00 58 14 87/54 100 Mechanical Ventilator 30 05/02/17 06:00 72 18 111/69 100 Mechanical Ventilator 30 05/02/17 05:16 79 21 30 05/02/17 05:00 68 16 107/68 100 Mechanical Ventilator 30 05/02/17 04:00 30 05/02/17 04:00 98.1 67 14 85/56 100 Mechanical Ventilator 30 05/02/17 03:32 85 20 30 05/02/17 03:12 65 05/02/17 03:00 68 13 91/52 100 Mechanical Ventilator 30 05/02/17 02:00 70 16 99/62 100 Mechanical Ventilator 30 05/02/17 01:54 75 16 100 Mechanical Ventilator 30 05/02/17 01:48 88 16 100 Mechanical Ventilator 30 05/02/17 01:47 88 21 30 05/02/17 01:00 86 20 124/78 100 Mechanical Ventilator 30 05/02/17 00:00 30 05/02/17 00:00 98.7 77 17 111/73 100 Mechanical Ventilator 30 05/01/17 23:17 78 19 30 05/01/17 23:14 79 05/01/17 23:00 80 15 106/74 100 Mechanical Ventilator 30 05/01/17 22:00 83 16 101/65 100 Mechanical Ventilator 30 05/01/17 21:00 70 16 99/63 100 Mechanical Ventilator 30 05/01/17 20:34 71 16 30 05/01/17 20:33 71 17 100 Mechanical Ventilator 30 05/01/17 20:00 98.6 75 14 107/72 100 Mechanical Ventilator 30 05/01/17 20:00 30 05/01/17 19:57 75 22 100 Mechanical Ventilator 30 05/01/17 19:56 68 14 30 05/01/17 19:04 83 05/01/17 19:00 86 16 95/58 100 Mechanical Ventilator 30 05/01/17 18:00 86 16 101/67 100 Mechanical Ventilator 30 05/01/17 17:18 85 17 30 05/01/17 17:00 85 16 118/73 95 Mechanical Ventilator 30 05/01/17 16:00 98.3 83 16 105/71 100 Mechanical Ventilator 30 05/01/17 16:00 81 05/01/17 16:00 30 05/01/17 15:50 77 12 30 05/01/17 15:00 86 16 99/69 100 Mechanical Ventilator 30 05/01/17 14:02 82 12 100 Mechanical Ventilator 30 05/01/17 14:00 83 16 105/74 100 Mechanical Ventilator 30 05/01/17 13:36 86 15 100 Mechanical Ventilator 30 05/01/17 13:34 86 14 30 05/01/17 13:00 92 15 100/62 96 Mechanical Ventilator 30 05/01/17 12:00 30 05/01/17 12:00 98.5 99 16 95/60 100 Mechanical Ventilator 30 05/01/17 12:00 100 Status: awake, obtunded Condition: critical HEENT: atraumatic, normocephalic Neck: trach Lungs: clear, other - R PleurX Heart: HR/BP stable Abdomen: soft, non-tender, active bowel sounds, feeding tube Extremities: no C/C/E Decubiti: location - sacral decub, stage - 4 Micro: Microbiology Date/Time Source Procedure Growth Status 04/30/17 14:45 Blood Blood Culture - Preliminary NO GROWTH AFTER 24 HOURS Resulted 04/30/17 14:40 Blood Blood Culture - Preliminary NO GROWTH AFTER 24 HOURS Resulted 04/29/17 20:35 Blood Blood Culture - Preliminary NO GROWTH AFTER 48 HOURS Resulted 04/29/17 20:30 Blood Blood Culture - Preliminary NO GROWTH AFTER 48 HOURS Resulted 04/30/17 12:00 Sputum Gram Stain - Final Resulted 04/30/17 12:00 Sputum Culture - Preliminary Staphylococcus Aureus Usual Upper Respiratory Shraddha Resulted 04/29/17 23:55 Nasal Nares MRSA Culture - Final NO METHICILLIN RESISTANT STAPH AUREUS... Complete 04/29/17 20:30 Urine,Clean Catch Urine Culture - Preliminary Gram Negative Bacillus 1 Resulted 04/29/17 23:55 Rectum VRE Culture - Final Enterococcus Faecalis - Vre Complete Accucheck: 196 Critical Care - Subjective ROS Limited/Unobtainable: Yes ICU Day: 3 Intubation Day: N/A trach Interval Events: AFVSS, stable on vent, O2 needs stable, no sig secretions, Cx's noted, gas exchange improved, leukocytosis and LA resolved FI02: 30 Vent Support Breath Rate: 12 Vent Support Mode: AC Vent Tidal Volume: 600 Sputum Amount: Small PEEP: 5.0 PIP: 23 Tube Feeding Amount: 45 I&O: Intake and Output 05/02/17 05/03/17 19:00 07:00 Intake Total 235 ml Output Total 100 ml Balance 135 ml Intake Oral 0 ml Free Water 100 ml Tube Feeding 135 ml Output Urine Total 100 ml ALLEGRA BRENNER M.D. May 02, 2017 11:11
--- NOTE | 2017-05-02 11:12 | Infectious Diseases Prog Note ---
Assessment/Plan Assessment/Plan ASSESSMENT: Sepsis. Fever, SP Leukocytosis, SP UTI Ucx : GNR Probable Pneu Scx:Staph A History of methicillin-resistant Staphylococcus aureus bacteremia with possible mitral valve endocarditis repeat Echo 04/29 : No Veg History of acute renal failure (? possible due to vancomycin) History of extended-spectrum beta-lactamase Escherichia coli and urinary tract infection Sacral decubitus, no sign of infection Possible PleurX catheter site infection. SP LACosis CVA. Seizure disorder. Aphasia. Status post trach. Hypertension. COPD/asthma. Status post PEG placement. Obesity. Diabetes. Anemia. Ventilator-dependent respiratory failure. Status post PleurX catheter (question underlying etiology). Recent history of MRSA bacteremia with probable mitral valve endocarditis PLAN: continue the patient on IV vancomycin for now (we will monitor creatinine closely) and meropenem d#3 Monitor CBC Monitor BMP. Culture from the PleurX site. Culture from pleural effusion (it is mildly cloudy and greenish). Monitor blood culture. Monitor sputum culture. Monitor urine culture Continue vent support. Subjective Constitutional: Denies: no symptoms, fever, chills, fatigue, anorexia, drenching sweats, other Allergies: Coded Allergies: NO KNOWN ALLERGIES (Unverified Allergy, Unknown, 01/27/15) NO KNOWN DRUG ALLERGIES (Unverified Allergy, Unknown, 06/28/15) Subjective Afebrile Objective Vital Signs Last 24 Hour Vital Signs Date Time Temp Pulse Resp B/P (MAP) Pulse Ox O2 Delivery O2 Flow Rate FiO2 05/02/17 10:41 72 17 30 05/02/17 10:00 75 14 98/64 100 Mechanical Ventilator 05/02/17 09:04 68 12 30 05/02/17 09:00 76 14 116/47 92 05/02/17 08:17 67 16 100 Mechanical Ventilator 30 05/02/17 08:07 69 20 100 Mechanical Ventilator 30 05/02/17 08:00 99.0 57 12 91/53 100 05/02/17 08:00 57 05/02/17 07:24 63 14 30 05/02/17 07:00 58 14 87/54 100 Mechanical Ventilator 30 05/02/17 06:00 72 18 111/69 100 Mechanical Ventilator 30 05/02/17 05:16 79 21 30 05/02/17 05:00 68 16 107/68 100 Mechanical Ventilator 30 05/02/17 04:00 30 05/02/17 04:00 98.1 67 14 85/56 100 Mechanical Ventilator 30 05/02/17 03:32 85 20 30 05/02/17 03:12 65 05/02/17 03:00 68 13 91/52 100 Mechanical Ventilator 30 05/02/17 02:00 70 16 99/62 100 Mechanical Ventilator 30 05/02/17 01:54 75 16 100 Mechanical Ventilator 30 05/02/17 01:48 88 16 100 Mechanical Ventilator 30 05/02/17 01:47 88 21 30 05/02/17 01:00 86 20 124/78 100 Mechanical Ventilator 30 05/02/17 00:00 30 05/02/17 00:00 98.7 77 17 111/73 100 Mechanical Ventilator 30 05/01/17 23:17 78 19 30 05/01/17 23:14 79 05/01/17 23:00 80 15 106/74 100 Mechanical Ventilator 30 05/01/17 22:00 83 16 101/65 100 Mechanical Ventilator 30 05/01/17 21:00 70 16 99/63 100 Mechanical Ventilator 30 05/01/17 20:34 71 16 30 05/01/17 20:33 71 17 100 Mechanical Ventilator 30 05/01/17 20:00 98.6 75 14 107/72 100 Mechanical Ventilator 30 05/01/17 20:00 30 05/01/17 19:57 75 22 100 Mechanical Ventilator 30 05/01/17 19:56 68 14 30 05/01/17 19:04 83 05/01/17 19:00 86 16 95/58 100 Mechanical Ventilator 30 05/01/17 18:00 86 16 101/67 100 Mechanical Ventilator 30 05/01/17 17:18 85 17 30 05/01/17 17:00 85 16 118/73 95 Mechanical Ventilator 30 05/01/17 16:00 98.3 83 16 105/71 100 Mechanical Ventilator 30 05/01/17 16:00 81 05/01/17 16:00 30 05/01/17 15:50 77 12 30 05/01/17 15:00 86 16 99/69 100 Mechanical Ventilator 30 05/01/17 14:02 82 12 100 Mechanical Ventilator 30 05/01/17 14:00 83 16 105/74 100 Mechanical Ventilator 30 05/01/17 13:36 86 15 100 Mechanical Ventilator 30 05/01/17 13:34 86 14 30 05/01/17 13:00 92 15 100/62 96 Mechanical Ventilator 30 05/01/17 12:00 30 05/01/17 12:00 98.5 99 16 95/60 100 Mechanical Ventilator 30 05/01/17 12:00 100 Height (Feet): 5 Height (Inches): 8.00 Weight (Pounds): 211 Respiratory/Chest: no accessory muscle use Cardiovascular: regular rhythm Abdomen: non distended Microbiology Date/Time Source Procedure Growth Status 04/30/17 14:45 Blood Blood Culture - Preliminary NO GROWTH AFTER 24 HOURS Resulted 04/30/17 14:40 Blood Blood Culture - Preliminary NO GROWTH AFTER 24 HOURS Resulted 04/29/17 20:35 Blood Blood Culture - Preliminary NO GROWTH AFTER 48 HOURS Resulted 04/29/17 20:30 Blood Blood Culture - Preliminary NO GROWTH AFTER 48 HOURS Resulted 04/30/17 12:00 Sputum Gram Stain - Final Resulted 04/30/17 12:00 Sputum Culture - Preliminary Staphylococcus Aureus Usual Upper Respiratory Shraddha Resulted 04/29/17 23:55 Nasal Nares MRSA Culture - Final NO METHICILLIN RESISTANT STAPH AUREUS... Complete 04/29/17 20:30 Urine,Clean Catch Urine Culture - Preliminary Gram Negative Bacillus 1 Resulted 04/29/17 23:55 Rectum VRE Culture - Final Enterococcus Faecalis - Vre Complete Current Medications Medications (Trade) Dose Ordered Sig/Tony Route PRN Reason Start Time Stop Time Status Last Admin Dose Admin Acetaminophen (Tylenol) 650 mg Q4H PRN ORAL Mild Pain/Temp > 100.5 04/30/17 09:15 05/30/17 09:14 05/02/17 09:48 Albuterol/ Ipratropium (Albuterol/ Ipratropium) 3 ml Q4H PRN HHN Shortness of Breath 04/30/17 09:15 05/05/17 09:14 Albuterol/ Ipratropium (Albuterol/ Ipratropium) 3 ml Q6HRT HHN 04/30/17 13:00 05/05/17 12:59 05/02/17 08:07 Artificial Tears (Akwa-Tears) 1 drop EVERY 6 HOURS BOTH EYES 04/30/17 12:00 05/30/17 11:59 05/02/17 05:34 Ascorbic Acid (Vitamin C) 500 mg DAILY GT 05/01/17 09:00 05/31/17 08:59 05/02/17 09:20 Dextrose (Dextrose 50%) STAT PRN IV Hypoglycemia 04/30/17 09:30 05/30/17 09:29 Ferrous Sulfate (Feosol) 450 mg BID GT 04/30/17 18:00 05/30/17 17:59 05/02/17 09:19 Heparin Sodium (Porcine) (Heparin 5000 units/ml) 5,000 units EVERY 12 HOURS SUBQ 04/30/17 21:00 05/30/17 20:59 05/02/17 09:00 Insulin Aspart (NovoLOG) Q6HR SUBQ 05/01/17 12:00 05/30/17 11:29 05/02/17 05:36 Insulin Detemir (Levemir) 10 units BEDTIME SUBQ 04/30/17 21:00 05/30/17 20:59 05/01/17 20:57 Lactulose (Cephulac) 20 gm BID ORAL 04/30/17 18:00 05/30/17 17:59 05/02/17 09:20 Levetiracetam (Keppra) 500 mg Q12HR GT 04/30/17 10:00 05/30/17 09:59 05/02/17 09:20 Meropenem 1 gm/ Sodium Chloride 55 ml @ 110 mls/hr Q8HR IVPB 04/30/17 14:00 05/05/17 13:59 05/02/17 05:34 Metformin HCl (Glucophage) 1,000 mg BID GT 04/30/17 18:00 05/30/17 17:59 05/02/17 09:19 Ondansetron HCl (Zofran) 4 mg Q6H PRN IVP Nausea & Vomiting 04/30/17 09:15 05/30/17 09:14 Polyethylene Glycol (Miralax) 17 gm DAILYPRN PRN ORAL Constipation 04/30/17 09:30 05/30/17 09:29 Ranitidine HCl (Zantac) 150 mg TWICE A DAY ORAL 04/30/17 18:00 05/30/17 17:59 05/02/17 09:19 Sodium Chloride 1,000 ml @ 100 mls/hr Q10H IV 04/30/17 10:30 05/30/17 10:29 05/02/17 02:40 Thiamine HCl (Vitamin B1) 100 mg DAILY GT 05/01/17 09:00 05/31/17 08:59 05/02/17 09:19 Vancomycin HCl (Vanco rx to dose) 1 ea DAILY PRN MISC Per rx protocol 04/30/17 09:15 05/30/17 09:14 Vancomycin HCl/ Dextrose 250 ml @ 166.667 mls/hr Q8HR@0400,1200,2000 IVPB 05/01/17 20:00 05/06/17 19:59 05/02/17 03:41 Zinc Sulfate (Zinc Sulfate) 220 mg DAILY GT 05/01/17 09:00 05/31/17 08:59 05/02/17 09:19 RAMYA RECIO M.D. May 02, 2017 11:12
[2017-05-02] MEDS ORDERED: Albuterol/Ipratropium 3ml neb HHN PRN (17:15)
[2017-05-02] MEDS ORDERED: Vancomycin 1250mg/D5W 250ml 250 ML IVPB SCH (20:00)
[2017-05-02] MEDS: Levemir Flexpen SUBQ SCH (21:09)
[2017-05-02] MEDS: Vancomycin 1gm in Dextrose 275ml IVPB SCH (22:34)
[2017-05-03] VITALS: BP 119/75
[2017-05-03] MEDS: Albuterol/Ipratropium 3ml neb HHN SCH ×4 (01:16→19:06)
[2017-05-03 04:00] VITALS: BP 126/79
[2017-05-03] MEDS: Vancomycin 1gm in Dextrose 275ml IVPB SCH ×4 (04:26→22:00)
[2017-05-03 04:44] LABS: BASOPHILS % (AUTO) 0.7 % (0.0-2.0); EOSINOPHILS % (AUTO) 2.9 % (0.0-3.0); LYMPHOCYTES % (AUTO) 17.6 % (20.0-45.0); MEAN CORPUSCULAR HEMOGLOBIN 30.3 PG (27.0-31.0); MEAN CORPUSCULAR HGB CONC 32.5 G/DL (32.0-36.0); MEAN CORPUSCULAR VOLUME 93 FL (80-99); MEAN PLATELET VOLUME 9.1 FL (6.5-10.1); MONOCYTES % (AUTO) 8.6 % (1.0-10.0); NEUTROPHILS % (AUTO) 70.3 % (45.0-75.0); PLATELET COUNT 255 K/UL (150-450); RED BLOOD COUNT 3.24 M/UL (4.70-6.10); RED CELL DISTRIBUTION WIDTH 14.7 % (11.6-14.8); WHITE BLOOD COUNT 6.7 K/UL (4.8-10.8)
[2017-05-03 05:22] LABS: ALANINE AMINOTRANSFERASE 61 U/L (12-78); ALBUMIN/GLOBULIN RATIO 0.5 (1.0-2.7); ANION GAP 11 mmol/L (5-15); ASPARTATE AMINO TRANSFERASE 34 U/L (15-37); CARBON DIOXIDE 22 MMOL/L (21-32); CHLORIDE 108 MMOL/L (98-107); CREATININE 0.5 MG/DL (0.55-1.30); GLOMERULAR FILTRATION RATE > 60 mL/min (>60); POTASSIUM 3.4 MMOL/L (3.5-5.1); SODIUM 141 MMOL/L (136-145); TOTAL PROTEIN 7.4 G/DL (6.4-8.2)
[2017-05-03] MEDS: NovoLOG Insulin Flexpen SUBQ SCH ×3 (05:58→17:19)
[2017-05-03] MEDS: Artificial Tears 1.4% Op Soln BOTH EYES SCH ×3 (05:58→17:15)
[2017-05-03] MEDS: Meropenem 1 GM in NS 55 ML IVPB SCH ×3 (05:58→22:11)
[2017-05-03 08:00] VITALS: BP 140/82
[2017-05-03] MEDS ORDERED: Ascorbic Acid 500mg tab GT SCH (09:00)
[2017-05-03] MEDS ORDERED: Zinc Sulfate 220mg cap GT SCH (09:00)
[2017-05-03] MEDS ORDERED: Thiamine 100mg tab GT SCH (09:00)
[2017-05-03] MEDS ORDERED: Miralax 17gm pkt ORAL PRN (09:30)
[2017-05-03] MEDS: levETIRAcetam 500mg/5ml Liquid GT SCH ×2 (09:34→21:03)
[2017-05-03] MEDS: metFORMIN 500mg tab GT SCH ×2 (09:34→17:15)
[2017-05-03] MEDS: Lactulose 20gm/30ml UDC ORAL SCH ×2 (09:34→17:15)
[2017-05-03] MEDS: Ferrous Sulfate 300 MG/5 ML UDC GT SCH ×2 (09:35→17:15)
[2017-05-03] MEDS: Heparin 5000 units/ml inj SUBQ SCH ×2 (09:37→21:05)
--- NOTE | 2017-05-03 11:07 | Pulmonology Progress Note ---
Assessment/Plan Problems: (1) Status post tracheostomy (2) Ventilator dependent (3) Chronic vegetative state (4) Acute and chronic respiratory failure (5) Pneumonia (6) Sepsis (7) UTI (urinary tract infection) Assessment/Plan -Continue ventilatory support --> D/W RT: weaning as tolerated -Optimize pulmonary hygiene/mobilize as tolerated -RTC and PRN DUOnebs -Abx per ID, F/U Cx's including pleural fluid -TF's as tolerated -Continue AED's -DVT Px: Hep SQ -Wound care -Monitor volumes -F/C, discuss GOC Subjective Allergies: Coded Allergies: NO KNOWN ALLERGIES (Unverified Allergy, Unknown, 01/27/15) NO KNOWN DRUG ALLERGIES (Unverified Allergy, Unknown, 06/28/15) Subjective AFVSS, stable on vent, Tx'd to GONZALO Marjan TF's, no sig secretions, no F/C, no change in MS Objective Last 24 Hour Vital Signs Date Time Temp Pulse Resp B/P (MAP) Pulse Ox O2 Delivery O2 Flow Rate FiO2 05/03/17 08:42 75 17 30 05/03/17 08:00 88 05/03/17 08:00 30 05/03/17 08:00 98.9 93 20 140/82 99 Mechanical Ventilator 30 05/03/17 07:18 81 20 99 Mechanical Ventilator 30 05/03/17 07:11 30 05/03/17 07:11 87 19 99 Mechanical Ventilator 30 05/03/17 07:10 80 17 30 05/03/17 05:19 81 17 30 05/03/17 04:00 30 05/03/17 04:00 72 05/03/17 04:00 99.6 75 21 126/79 98 Mechanical Ventilator 30 05/03/17 02:56 75 18 30 05/03/17 01:25 78 23 99 Mechanical Ventilator 30 05/03/17 01:16 80 24 30 05/03/17 01:16 30 05/03/17 01:16 80 24 97 Mechanical Ventilator 30 05/03/17 00:00 30 05/03/17 00:00 79 05/03/17 00:00 98.3 76 21 119/75 98 Mechanical Ventilator 30 05/02/17 23:13 74 15 30 05/02/17 21:23 77 20 30 05/02/17 20:00 30 05/02/17 20:00 72 05/02/17 20:00 98.9 79 20 118/79 98 Mechanical Ventilator 30 05/02/17 19:15 84 15 99 Mechanical Ventilator 30 05/02/17 19:07 76 13 99 Mechanical Ventilator 30 05/02/17 19:07 30 05/02/17 19:07 76 13 30 05/02/17 17:12 74 16 30 05/02/17 16:00 98.4 89 20 122/84 98 Mechanical Ventilator 05/02/17 16:00 74 05/02/17 16:00 99 05/02/17 14:41 74 18 30 05/02/17 14:00 78 14 107/65 99 Mechanical Ventilator 05/02/17 13:29 79 21 100 Mechanical Ventilator 30 05/02/17 13:12 30 05/02/17 13:12 79 12 100 Mechanical Ventilator 30 05/02/17 13:08 72 19 30 05/02/17 13:00 70 14 93/58 100 Mechanical Ventilator 05/02/17 12:00 92 05/02/17 12:00 98.4 92 14 118/72 98 Mechanical Ventilator 05/02/17 12:00 99 Intake and Output 05/02/17 05/03/17 19:00 07:00 Intake Total 645 ml 1395.000 ml Output Total 1440 ml 800 ml Balance -795 ml 595.000 ml Intake Oral 0 ml Free Water 150 ml 100 ml IV Total 660.000 ml Tube Feeding 495 ml 585 ml Other 50 ml Output Urine Total 1250 ml 800 ml Other 190 ml # Bowel Movements 1 General Appearance: no acute distress, cachetic HEENT: status post trach Respiratory/Chest: chest wall non-tender, lungs clear, normal breath sounds, no respiratory distress, other - R PleurX Cardiovascular: normal peripheral pulses, normal rate, regular rhythm Abdomen: normal bowel sounds, soft, non tender, no organomegaly, non distended , other - GT Extremities: no cyanosis, no clubbing, no edema Microbiology Date/Time Source Procedure Growth Status 04/30/17 14:45 Blood Blood Culture - Preliminary NO GROWTH AFTER 48 HOURS Resulted 04/30/17 14:40 Blood Blood Culture - Preliminary NO GROWTH AFTER 48 HOURS Resulted 04/30/17 12:00 Sputum Gram Stain - Final Complete 04/30/17 12:00 Sputum Culture - Final Staphylococcus Aureus - Mrsa Usual Upper Respiratory Shraddha Complete 05/02/17 12:00 Sacral Wound Gram Stain Pending Resulted 05/02/17 12:00 Wound Culture - Preliminary Gram Negative Bacillus 1 Resulted 05/02/17 12:00 Chest Gram Stain Pending Resulted 05/02/17 12:00 Chest Aerobic Culture - Preliminary NO GROWTH AFTER 24 HOURS Resulted Laboratory Tests 05/02/17 19:40: Vancomycin Level Trough 13.6H 05/03/17 03:20: White Blood Count 6.7, Red Blood Count 3.24L, Hemoglobin 9.8L, Hematocrit 30.2L , Mean Corpuscular Volume 93, Mean Corpuscular Hemoglobin 30.3, Mean Corpuscular Hemoglobin Concent 32.5, Red Cell Distribution Width 14.7, Platelet Count 255, Mean Platelet Volume 9.1, Neutrophils (%) (Auto) 70.3, Lymphocytes (% ) (Auto) 17.6L, Monocytes (%) (Auto) 8.6, Eosinophils (%) (Auto) 2.9, Basophils (%) (Auto) 0.7, Sodium Level 141, Potassium Level 3.4L, Chloride Level 108H, Carbon Dioxide Level 22, Anion Gap 11, Blood Urea Nitrogen 5L, Creatinine 0.5L, Estimat Glomerular Filtration Rate > 60, Glucose Level 190H, Calcium Level 9.0, Total Bilirubin 0.3, Aspartate Amino Transf (AST/SGOT) 34, Alanine Aminotransferase (ALT/SGPT) 61, Alkaline Phosphatase 63, Total Protein 7.4, Albumin 2.5L, Globulin 4.9, Albumin/Globulin Ratio 0.5L Current Medications Medications (Trade) Dose Ordered Sig/Tony Route PRN Reason Start Time Stop Time Status Last Admin Dose Admin Acetaminophen (Tylenol) 650 mg Q4H PRN ORAL Mild Pain/Temp > 100.5 05/02/17 17:15 05/30/17 09:14 Albuterol/ Ipratropium (Albuterol/ Ipratropium) 3 ml Q4H PRN HHN Shortness of Breath 05/02/17 17:15 05/05/17 09:14 Albuterol/ Ipratropium (Albuterol/ Ipratropium) 3 ml Q6HRT HHN 05/02/17 19:00 05/05/17 12:59 05/03/17 07:13 Artificial Tears (Akwa-Tears) 1 drop EVERY 6 HOURS BOTH EYES 05/02/17 18:00 05/30/17 11:59 05/03/17 05:58 Ascorbic Acid (Vitamin C) 500 mg DAILY GT 05/03/17 09:00 05/31/17 08:59 05/03/17 09:34 Dextrose (Dextrose 50%) STAT PRN IV Hypoglycemia 05/03/17 09:30 05/30/17 09:29 Ferrous Sulfate (Feosol) 450 mg BID GT 05/02/17 18:00 05/30/17 17:59 05/03/17 09:35 Heparin Sodium (Porcine) (Heparin 5000 units/ml) 5,000 units EVERY 12 HOURS SUBQ 05/02/17 21:00 05/30/17 20:59 05/03/17 09:37 Insulin Aspart (NovoLOG) Q6HR SUBQ 05/02/17 18:00 05/30/17 11:29 05/03/17 05:58 Insulin Detemir (Levemir) 10 units BEDTIME SUBQ 05/02/17 21:00 05/30/17 20:59 05/02/17 21:09 Lactulose (Cephulac) 20 gm BID ORAL 05/02/17 18:00 05/30/17 17:59 05/03/17 09:34 Levetiracetam (Keppra) 500 mg Q12HR GT 05/02/17 21:00 05/30/17 09:59 05/03/17 09:34 Meropenem 1 gm/ Sodium Chloride 55 ml @ 110 mls/hr Q8HR IVPB 05/02/17 22:00 05/05/17 13:59 05/03/17 05:58 Metformin HCl (Glucophage) 1,000 mg BID GT 05/02/17 18:00 05/30/17 17:59 05/03/17 09:34 Ondansetron HCl (Zofran) 4 mg Q6H PRN IVP Nausea & Vomiting 05/02/17 21:15 05/30/17 09:14 Polyethylene Glycol (Miralax) 17 gm DAILYPRN PRN ORAL Constipation 05/03/17 09:30 05/30/17 09:29 Ranitidine HCl (Zantac) 150 mg TWICE A DAY ORAL 05/02/17 18:00 05/30/17 17:59 05/03/17 09:35 Thiamine HCl (Vitamin B1) 100 mg DAILY GT 05/03/17 09:00 05/31/17 08:59 05/03/17 09:34 Vancomycin HCl (Vanco rx to dose) 1 ea DAILY PRN MISC Per rx protocol 05/03/17 09:00 05/30/17 09:14 Vancomycin HCl 1 gm/Dextrose 275 ml @ 183.708 mls/hr Q6H IVPB 05/02/17 22:00 05/07/17 21:59 05/03/17 10:54 Zinc Sulfate (Zinc Sulfate) 220 mg DAILY GT 05/03/17 09:00 05/31/17 08:59 05/03/17 09:35 ALLEGRA BRENNER M.D. May 03, 2017 11:07
[2017-05-03 12:00] VITALS: BP 123/75
--- NOTE | 2017-05-03 12:09 | General Progress Note ---
Assessment/Plan Status: stable Assessment/Plan 1. Healthcare-associated sepsis. 2. Gram negative healthcare-associated urinary infection. 3. Quadriplegia. 4. Dysphagia, status post percutaneous endoscopic gastrostomy tube. 5. Ventilator dependent respiratory failure, on tracheostomy. 6. Seizure disorder. 7. Abnormal liver function test. 8. Gastrointestinal and deep vein thrombosis prophylaxis. Plan: current management Notes from ID and pulmonary reviewed Subjective ROS Limited/Unobtainable: Yes Allergies: Coded Allergies: NO KNOWN ALLERGIES (Unverified Allergy, Unknown, 01/27/15) NO KNOWN DRUG ALLERGIES (Unverified Allergy, Unknown, 06/28/15) Objective Last 24 Hour Vital Signs Date Time Temp Pulse Resp B/P (MAP) Pulse Ox O2 Delivery O2 Flow Rate FiO2 05/03/17 10:50 81 20 30 05/03/17 08:42 75 17 30 05/03/17 08:00 88 05/03/17 08:00 30 05/03/17 08:00 98.9 93 20 140/82 99 Mechanical Ventilator 30 05/03/17 07:18 81 20 99 Mechanical Ventilator 30 05/03/17 07:11 30 05/03/17 07:11 87 19 99 Mechanical Ventilator 30 05/03/17 07:10 80 17 30 05/03/17 05:19 81 17 30 05/03/17 04:00 30 05/03/17 04:00 72 05/03/17 04:00 99.6 75 21 126/79 98 Mechanical Ventilator 30 05/03/17 02:56 75 18 30 05/03/17 01:25 78 23 99 Mechanical Ventilator 30 05/03/17 01:16 80 24 30 05/03/17 01:16 30 05/03/17 01:16 80 24 97 Mechanical Ventilator 30 05/03/17 00:00 30 05/03/17 00:00 79 05/03/17 00:00 98.3 76 21 119/75 98 Mechanical Ventilator 30 05/02/17 23:13 74 15 30 05/02/17 21:23 77 20 30 05/02/17 20:00 30 05/02/17 20:00 72 05/02/17 20:00 98.9 79 20 118/79 98 Mechanical Ventilator 30 05/02/17 19:15 84 15 99 Mechanical Ventilator 30 05/02/17 19:07 76 13 99 Mechanical Ventilator 30 05/02/17 19:07 30 05/02/17 19:07 76 13 30 05/02/17 17:12 74 16 30 05/02/17 16:00 98.4 89 20 122/84 98 Mechanical Ventilator 05/02/17 16:00 74 05/02/17 16:00 99 05/02/17 14:41 74 18 30 05/02/17 14:00 78 14 107/65 99 Mechanical Ventilator 05/02/17 13:29 79 21 100 Mechanical Ventilator 30 05/02/17 13:12 30 05/02/17 13:12 79 12 100 Mechanical Ventilator 30 05/02/17 13:08 72 19 30 05/02/17 13:00 70 14 93/58 100 Mechanical Ventilator Intake and Output 05/02/17 05/03/17 19:00 07:00 Intake Total 645 ml 1395.000 ml Output Total 1440 ml 800 ml Balance -795 ml 595.000 ml Intake Oral 0 ml Free Water 150 ml 100 ml IV Total 660.000 ml Tube Feeding 495 ml 585 ml Other 50 ml Output Urine Total 1250 ml 800 ml Other 190 ml # Bowel Movements 1 Laboratory Tests 05/02/17 19:40: Vancomycin Level Trough 13.6H 05/03/17 03:20: White Blood Count 6.7, Red Blood Count 3.24L, Hemoglobin 9.8L, Hematocrit 30.2L , Mean Corpuscular Volume 93, Mean Corpuscular Hemoglobin 30.3, Mean Corpuscular Hemoglobin Concent 32.5, Red Cell Distribution Width 14.7, Platelet Count 255, Mean Platelet Volume 9.1, Neutrophils (%) (Auto) 70.3, Lymphocytes (% ) (Auto) 17.6L, Monocytes (%) (Auto) 8.6, Eosinophils (%) (Auto) 2.9, Basophils (%) (Auto) 0.7, Sodium Level 141, Potassium Level 3.4L, Chloride Level 108H, Carbon Dioxide Level 22, Anion Gap 11, Blood Urea Nitrogen 5L, Creatinine 0.5L, Estimat Glomerular Filtration Rate > 60, Glucose Level 190H, Calcium Level 9.0, Total Bilirubin 0.3, Aspartate Amino Transf (AST/SGOT) 34, Alanine Aminotransferase (ALT/SGPT) 61, Alkaline Phosphatase 63, Total Protein 7.4, Albumin 2.5L, Globulin 4.9, Albumin/Globulin Ratio 0.5L Height (Feet): 5 Height (Inches): 8.00 Weight (Pounds): 211 General Appearance: no apparent distress EENT: other - limited eval as patient is not following commands Neck: other - Trach in place Cardiovascular: normal rate Respiratory/Chest: rhonchi - bilaterally Abdomen: soft Extremities: other - atrophied musculature Neurologic: other - limited eval as patient is not following commands Honey Granda MD May 03, 2017 12:09
[2017-05-03] MEDS ORDERED: VANCOMYCIN1 GM/1001 IV (15:45)
[2017-05-03] MEDS ORDERED: MERREM1 GM IV (15:53)
[2017-05-03] MEDS ORDERED: Tubing IV Secondary IV ONE (15:53)
[2017-05-03 16:00] VITALS: BP 134/85
--- NOTE | 2017-05-03 19:32 | Infectious Diseases Prog Note ---
Assessment/Plan Assessment/Plan ASSESSMENT: Sepsis. SP Fever, SP Leukocytosis, SP UTI Ucx : GNR x 3 Probable Pneu Scx: MRSA History of methicillin-resistant Staphylococcus aureus bacteremia with possible mitral valve endocarditis repeat Echo 04/29 : No Veg History of acute renal failure (? possible due to vancomycin) History of extended-spectrum beta-lactamase Escherichia coli and urinary tract infection Sacral decubitus, no sign of infection Possible PleurX catheter site infection. SP LACosis CVA. Seizure disorder. Aphasia. Status post trach. Hypertension. COPD/asthma. Status post PEG placement. Obesity. Diabetes. Anemia. Ventilator-dependent respiratory failure. Status post PleurX catheter (question underlying etiology). Recent history of MRSA bacteremia with probable mitral valve endocarditis PLAN: continue the patient on IV vancomycin for now (we will monitor creatinine closely) and meropenem d# 4 / Monitor CBC Monitor BMP. Culture from the PleurX site. Culture from pleural effusion (it is mildly cloudy and greenish). Monitor blood culture. Monitor sputum culture. Monitor urine culture Continue vent support. Subjective Allergies: Coded Allergies: NO KNOWN ALLERGIES (Unverified Allergy, Unknown, 01/27/15) NO KNOWN DRUG ALLERGIES (Unverified Allergy, Unknown, 06/28/15) Subjective Afebrile Objective Vital Signs Last 24 Hour Vital Signs Date Time Temp Pulse Resp B/P (MAP) Pulse Ox O2 Delivery O2 Flow Rate FiO2 05/03/17 19:18 88 17 99 Mechanical Ventilator 30 05/03/17 19:06 30 05/03/17 19:06 89 27 99 Mechanical Ventilator 30 05/03/17 19:06 89 27 30 05/03/17 16:45 75 14 30 05/03/17 16:00 30 05/03/17 16:00 76 05/03/17 16:00 99.7 75 20 134/85 99 Mechanical Ventilator 30 05/03/17 15:05 79 14 30 05/03/17 13:54 83 20 99 Mechanical Ventilator 30 05/03/17 13:45 30 05/03/17 13:45 82 19 99 Mechanical Ventilator 30 05/03/17 13:05 75 14 30 05/03/17 12:00 98.7 77 16 123/75 99 Mechanical Ventilator 30 05/03/17 12:00 76 05/03/17 12:00 30 05/03/17 10:50 81 20 30 05/03/17 08:42 75 17 30 05/03/17 08:00 88 05/03/17 08:00 30 05/03/17 08:00 98.9 93 20 140/82 99 Mechanical Ventilator 30 05/03/17 07:18 81 20 99 Mechanical Ventilator 30 05/03/17 07:11 30 05/03/17 07:11 87 19 99 Mechanical Ventilator 30 05/03/17 07:10 80 17 30 05/03/17 05:19 81 17 30 05/03/17 04:00 30 05/03/17 04:00 72 05/03/17 04:00 99.6 75 21 126/79 98 Mechanical Ventilator 30 05/03/17 02:56 75 18 30 05/03/17 01:25 78 23 99 Mechanical Ventilator 30 05/03/17 01:16 80 24 30 05/03/17 01:16 30 05/03/17 01:16 80 24 97 Mechanical Ventilator 30 05/03/17 00:00 30 05/03/17 00:00 79 05/03/17 00:00 98.3 76 21 119/75 98 Mechanical Ventilator 30 05/02/17 23:13 74 15 30 05/02/17 21:23 77 20 30 05/02/17 20:00 30 05/02/17 20:00 72 05/02/17 20:00 98.9 79 20 118/79 98 Mechanical Ventilator 30 Height (Feet): 5 Height (Inches): 8.00 Weight (Pounds): 211 HEENT: anicteric Respiratory/Chest: normal breath sounds Cardiovascular: regular rhythm Abdomen: non distended Microbiology Date/Time Source Procedure Growth Status 05/02/17 14:50 Abdominal Fluid Gram Stain - Final Resulted 05/02/17 14:50 Abdominal Fluid Body Fluid Culture Pending Resulted 05/02/17 12:00 Sacral Wound Gram Stain - Final Resulted 05/02/17 12:00 Wound Culture - Preliminary Gram Negative Bacillus 1 Resulted 05/02/17 12:00 Chest Gram Stain - Final Resulted 05/02/17 12:00 Chest Aerobic Culture - Preliminary NO GROWTH AFTER 24 HOURS Resulted Laboratory Tests Test 05/02/17 19:40 05/03/17 03:20 Vancomycin Level Trough 13.6 ug/mL (5.0-12.0) H White Blood Count 6.7 K/UL (4.8-10.8) Red Blood Count 3.24 M/UL (4.70-6.10) L Hemoglobin 9.8 G/DL (14.2-18.0) L Hematocrit 30.2 % (42.0-52.0) L Mean Corpuscular Volume 93 FL (80-99) Mean Corpuscular Hemoglobin 30.3 PG (27.0-31.0) Mean Corpuscular Hemoglobin Concent 32.5 G/DL (32.0-36.0) Red Cell Distribution Width 14.7 % (11.6-14.8) Platelet Count 255 K/UL (150-450) Mean Platelet Volume 9.1 FL (6.5-10.1) Neutrophils (%) (Auto) 70.3 % (45.0-75.0) Lymphocytes (%) (Auto) 17.6 % (20.0-45.0) L Monocytes (%) (Auto) 8.6 % (1.0-10.0) Eosinophils (%) (Auto) 2.9 % (0.0-3.0) Basophils (%) (Auto) 0.7 % (0.0-2.0) Sodium Level 141 MMOL/L (136-145) Potassium Level 3.4 MMOL/L (3.5-5.1) L Chloride Level 108 MMOL/L (98-107) H Carbon Dioxide Level 22 MMOL/L (21-32) Anion Gap 11 mmol/L (5-15) Blood Urea Nitrogen 5 mg/dL (7-18) L Creatinine 0.5 MG/DL (0.55-1.30) L Estimat Glomerular Filtration Rate > 60 mL/min (>60) Glucose Level 190 MG/DL (74-106) H Calcium Level 9.0 MG/DL (8.5-10.1) Total Bilirubin 0.3 MG/DL (0.2-1.0) Aspartate Amino Transf (AST/SGOT) 34 U/L (15-37) Alanine Aminotransferase (ALT/SGPT) 61 U/L (12-78) Alkaline Phosphatase 63 U/L (46-116) Total Protein 7.4 G/DL (6.4-8.2) Albumin 2.5 G/DL (3.4-5.0) L Globulin 4.9 g/dL Albumin/Globulin Ratio 0.5 (1.0-2.7) L Current Medications Medications (Trade) Dose Ordered Sig/Tony Route PRN Reason Start Time Stop Time Status Last Admin Dose Admin Acetaminophen (Tylenol) 650 mg Q4H PRN ORAL Mild Pain/Temp > 100.5 05/02/17 17:15 05/30/17 09:14 Albuterol/ Ipratropium (Albuterol/ Ipratropium) 3 ml Q4H PRN HHN Shortness of Breath 05/02/17 17:15 05/05/17 09:14 Albuterol/ Ipratropium (Albuterol/ Ipratropium) 3 ml Q6HRT HHN 05/02/17 19:00 05/05/17 12:59 05/03/17 19:06 Artificial Tears (Akwa-Tears) 1 drop EVERY 6 HOURS BOTH EYES 05/02/17 18:00 05/30/17 11:59 05/03/17 17:15 Ascorbic Acid (Vitamin C) 500 mg DAILY GT 05/03/17 09:00 05/31/17 08:59 05/03/17 09:34 Dextrose (Dextrose 50%) STAT PRN IV Hypoglycemia 05/03/17 09:30 05/30/17 09:29 Ferrous Sulfate (Feosol) 450 mg BID GT 05/02/17 18:00 05/30/17 17:59 05/03/17 17:15 Heparin Sodium (Porcine) (Heparin 5000 units/ml) 5,000 units EVERY 12 HOURS SUBQ 05/02/17 21:00 05/30/17 20:59 05/03/17 09:37 Insulin Aspart (NovoLOG) Q6HR SUBQ 05/02/17 18:00 05/30/17 11:29 05/03/17 17:19 Insulin Detemir (Levemir) 10 units BEDTIME SUBQ 05/02/17 21:00 05/30/17 20:59 05/02/17 21:09 Lactulose (Cephulac) 20 gm BID ORAL 05/02/17 18:00 18 17:59 05/03/17 17:15 Levetiracetam (Keppra) 500 mg Q12HR GT 05/02/17 21:00 05/30/17 09:59 05/03/17 09:34 Meropenem 1 gm/ Sodium Chloride 55 ml @ 110 mls/hr Q8HR IVPB 05/02/17 22:00 05/05/17 13:59 05/03/17 15:03 Metformin HCl (Glucophage) 1,000 mg BID GT 05/02/17 18:00 05/30/17 17:59 05/03/17 17:15 Ondansetron HCl (Zofran) 4 mg Q6H PRN IVP Nausea & Vomiting 05/02/17 21:15 05/30/17 09:14 Polyethylene Glycol (Miralax) 17 gm DAILYPRN PRN ORAL Constipation 05/03/17 09:30 05/30/17 09:29 Ranitidine HCl (Zantac) 150 mg TWICE A DAY ORAL 05/02/17 18:00 05/30/17 17:59 05/03/17 17:15 Thiamine HCl (Vitamin B1) 100 mg DAILY GT 05/03/17 09:00 05/31/17 08:59 05/03/17 09:34 Vancomycin HCl (Vanco rx to dose) 1 ea DAILY PRN MISC Per rx protocol 05/03/17 09:00 05/30/17 09:14 Vancomycin HCl 1 gm/Dextrose 275 ml @ 183.708 mls/hr Q6H IVPB 05/02/17 22:00 05/07/17 21:59 05/03/17 18:49 Zinc Sulfate (Zinc Sulfate) 220 mg DAILY GT 05/03/17 09:00 05/31/17 08:59 05/03/17 09:35 RAMYA RECIO M.D. May 03, 2017 19:32
[2017-05-03 20:00] VITALS: BP 132/86
[2017-05-03] MEDS: Levemir Flexpen SUBQ SCH (21:00)
[2017-05-03] MEDS ORDERED: Sterile Water Irrig 1000ml IRRIG ONE (23:58)
--- NOTE | 2017-05-04 10:20 | Discharge Summary ---
Discharge Summary Hospital Course Date of Admission Apr 29, 2017 at 20:23 Date of Discharge May 03, 2017 at 23:59 Admitting Diagnosis sepsis HPI Bong Vicente is a 46 year old male who was admitted on Apr 29, 2017 at 20:23 for Sepsis Hospital Course [id number] Discharge Discharge Disposition Patient was discharged to SNF/Subacute Facility(03) Discharge Diagnoses: Noemi Wyman NP May 04, 2017 10:20
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
--- NOTE | 2017-05-05 00:19 | Cardiology Report ---
APPROVED REPORT EXAM: Two-dimensional and M-mode echocardiogram with Doppler and color Doppler. INDICATION CAD M-Mode DIMENSIONS IVSd1.4 (0.7-1.1cm)Left Atrium (MM)3.2 (1.6-4.0cm) LVDd4.6 (3.5-5.6cm)Aortic Root3.5 (2.0-3.7cm) PWd1.4 (0.7-1.1cm)Aortic Cusp Exc.2.3 (1.5-2.0cm) LVDs3.3 (2.5-4.0cm) PWs1.9 cm Normal left ventricular chamber size, systolic function and wall motion to extent visualized. Left ventricular ejection fraction estimated to be 65 %. Mild left ventricular hypertrophy. No evidence of pericardial effusion. All other cardiac chamber sizes are within normal limits. Mild focal aortic valve sclerosis with adequate cusp excursion. MIldly thickened mitral valve leaflets with normal excursion. Mitral annulus and aortic root calcification. Pulmonic valve not well visualized. Normal tricuspid valve structure. Subcostal views unobtainable due to G-tube. A color flow and spectral Doppler study was performed and revealed: Trace aortic regurgitation. Trace mitral regurgitation. Mitral diastolic velocities suggest reduced left ventricular relaxation c/w mild LV diastolic dysfunction (Grade I). Trace tricuspid regurgitation. Tricuspid systolic velocities suggests peak right ventricular systolic pressure of 14 mmHg. No pulmonic regurgitation present.
--- NOTE | 2017-05-10 00:06 | Diagnostic Imaging Report ---
APPROVED REPORT CPT Code: 95589 Present Symptoms Shortness of breath BILATERAL: Imaging reveals a patent deep venous system bilaterally. There is no evidence of thrombus within the femoral, popliteal or tibial segments. The greater saphenous veins are also within normal limits. Doppler indicates normal spontaneous flow within these segments.
== END 2017-05-03 23:59 | DRG 720 ==
LOC: EDBD 19:31 → EMR 19:50 → ICU 20:23 → EDBEDREQ 04-30 04:40 → ENRESERV 04-30 07:30 → 2W 05-02 16:04
PROC: 5A1955Z Respiratory Ventilation, Greater than 96 Consecutive Hours (ICD-10-PCS; principal; 2017-04-29)
DX: A41.9 Sepsis, unspecified organism (principal); J96.20 Acute and chronic respiratory failure, unspecified whether with hypoxia or hypercapnia; J90 Pleural effusion, not elsewhere classified; Z99.11 Dependence on respirator [ventilator] status; J18.9 Pneumonia, unspecified organism; R40.3 Persistent vegetative state; R53.2 Functional quadriplegia; L89.150 Pressure ulcer of sacral region, unstageable; L89.159 Pressure ulcer of sacral region, unspecified stage; Z43.0 Encounter for attention to tracheostomy; N39.0 Urinary tract infection, site not specified; Z43.1 Encounter for attention to gastrostomy; R13.10 Dysphagia, unspecified; B96.89 Other specified bacterial agents as the cause of diseases classified elsewhere; G40.909 Epilepsy, unspecified, not intractable, without status epilepticus; Z86.73 Personal history of transient ischemic attack (TIA), and cerebral infarction without residual deficits; E11.9 Type 2 diabetes mellitus without complications; T85.79XA Infection and inflammatory reaction due to other internal prosthetic devices, implants and grafts, initial encounter; Y84.8 Other medical procedures as the cause of abnormal reaction of the patient, or of later complication, without mention of misadventure at the time of the procedure; R47.01 Aphasia; I10 Essential (primary) hypertension; E66.9 Obesity, unspecified; D64.9 Anemia, unspecified; Z86.14 Personal history of Methicillin resistant Staphylococcus aureus infection; R79.89 Other specified abnormal findings of blood chemistry; J44.9 Chronic obstructive pulmonary disease, unspecified; Z79.4 Long term (current) use of insulin; B96.4 Proteus (mirabilis) (morganii) as the cause of diseases classified elsewhere; B96.20 Unspecified Escherichia coli [E. coli] as the cause of diseases classified elsewhere; L89.320 Pressure ulcer of left buttock, unstageable; L89.310 Pressure ulcer of right buttock, unstageable
CPT/HCPCS: 36415; 36600; 71010; 80048; 80053; 80202; 81003; 82553; 82803; 82962; 83036; 83605; 84484; 85007; 85025; 87040; 87070; 87081; 87086; 87181; 87205; 93005; 93306; 93970; 94002; 94003; 94640; 99284; 99285; J1815; J7620; S5561

== ENCOUNTER 2017-08-07 12:23 | Inpatient (IN) | payer MEDICAID ==
[~2017-08-07] VITALS: Ht 177.8 cm; Wt 108.9 kg
[~2017-08-07 12:23] MED LIST changes: +ACETAMINOP160 MG/5 M ORAL; +CRANBERRY JUIC425 MG GT; +LACTULOSE20 GM/301 ORAL; +LEVAQUIN500 MG GT; +MERREM1 GM IV; +METFORMIN HCL1000 M1 GT; +VANCOMYCIN1 GM/1001 IV
[2017-08-07] MEDS ORDERED: ARTIFICIAL TEAR15 ML BOTH EYES (12:36)
[2017-08-07] MEDS ORDERED: MIRALAX17 G2 GT (12:41)
[2017-08-07] MEDS ORDERED: MULTI-VITAMIN-1 EACH GT (12:41)
[2017-08-07] MEDS ORDERED: NEXIUM40 MG GT (12:43)
[2017-08-07] MEDS ORDERED: VITAMIN D400 INTLU GT (12:44)
[2017-08-07] MEDS ORDERED: ZOFRAN4 M1 ORAL (12:44)
[2017-08-07] MEDS ORDERED: ZOSYN 3.3753.375 GM IV (12:45)
[2017-08-07 13:11] LABS: BASOPHILS % (AUTO) 0.7 % (0.0-2.0); EOSINOPHILS % (AUTO) 1.3 % (0.0-3.0); HEMATOCRIT 35.9 % (42.0-52.0); HEMOGLOBIN 11.7 G/DL (14.2-18.0); LYMPHOCYTES % (AUTO) 21.3 % (20.0-45.0); MEAN CORPUSCULAR VOLUME 89 FL (80-99); MONOCYTES % (AUTO) 7.2 % (1.0-10.0); NEUTROPHILS % (AUTO) 69.5 % (45.0-75.0); PLATELET COUNT 311 K/UL (150-450); RED BLOOD COUNT 4.04 M/UL (4.70-6.10); RED CELL DISTRIBUTION WIDTH 15.4 % (11.6-14.8); WHITE BLOOD COUNT 13.8 K/UL (4.8-10.8)
[2017-08-07 13:12] VITALS: BP 117/80
[2017-08-07 13:15] LABS: ANION GAP 10 mmol/L (5-15); BLOOD UREA NITROGEN 16 mg/dL (7-18); CALCIUM 9.8 MG/DL (8.5-10.1); CARBON DIOXIDE 28 MMOL/L (21-32); CHLORIDE 101 MMOL/L (98-107); CREATININE 0.7 MG/DL (0.55-1.30); POTASSIUM 4.4 MMOL/L (3.5-5.1); SODIUM 138 MMOL/L (136-145)
[2017-08-07 13:17] LABS: APPEARANCE,URINE SLIGHTLY CLOUDY; BILIRUBIN, URINE NEGATIVE (NEGATIVE); GLUCOSE, URINE (UA) NEGATIVE (NEGATIVE); KETONES,URINE 1+ (NEGATIVE); LEUKOCYTE ESTERASE ,URINE 2+ (NEGATIVE); NITRITE,URINE NEGATIVE (NEGATIVE); PH,URINE 6 (4.5-8.0); PROTEIN,URINE 3+ (NEGATIVE); UROBILINOGEN,URINE 1 MG/DL (0.0-1.0)
[2017-08-07 13:18] LABS: COLOR,URINE YELLOW
[2017-08-07 13:20] LABS: ALANINE AMINOTRANSFERASE 93 U/L (12-78); ALBUMIN 3.2 G/DL (3.4-5.0); ALBUMIN/GLOBULIN RATIO 0.6 (1.0-2.7); ALKALINE PHOSPHATASE 65 U/L (46-116); ASPARTATE AMINO TRANSFERASE 33 U/L (15-37); BILIRUBIN,TOTAL 0.4 MG/DL (0.2-1.0)
[2017-08-07 13:22] LABS: INR 0.9 (0.9-1.1)
--- NOTE | 2017-08-07 13:41 | Emergency Room Report ---
History of Present Illness General Chief Complaint: Gastrointestinal Illness Source: Medical Record Present Illness HPI 46-year-old male presents ED for evaluation. Patient brought from group home facility with abdominal distention. Per nursing staff distention started today shortly after patient pulled out his cholecystectomy tube. Patient is on ventilator with trach. Upon arrival patient showing no signs of distress. Has encephalopathy and unable to provide any additional history at this time. No reported fevers or chills. No other aggravating relieving factors. No other associated symptoms Allergies: Coded Allergies: NO KNOWN ALLERGIES (Unverified Allergy, Unknown, 01/27/15) NO KNOWN DRUG ALLERGIES (Unverified Allergy, Unknown, 06/28/15) Patient History Past Medical History: asthma, COPD, dementia - vegetative state, other - Gtube Past Surgical History: none Pertinent Family History: none Social History: Denies: smoking, alcohol use, drug use Immunizations: UTD Reviewed Nursing Documentation: PMH: Agreed; PSxH: Agreed Nursing Documentation-PMH Past Medical History Deferred: No Family Available Past Medical History: No History, Except For Hx Cardiac Problems: Yes Hx Hypertension: Yes Hx Asthma: Yes Hx COPD: Yes Hx Diabetes: Yes Hx Cancer: No Hx Gastrointestinal Problems: Yes - dysphagia Hx Neurological Problems: Yes - Persistent vegetative state Hx Cerebrovascular Accident: Yes Hx Seizures: Yes Hx Epilepsy: Yes Hx Paralysis: Yes Hx Memory Loss: Yes Hx Concentration Difficulty: Yes Hx Speech Problem: Yes - tracheostomy Hx Aphasia: Yes Hx Dysphasia: Yes Hx Weakness: Yes Review of Systems All Other Systems: limited Physical Exam Vital Signs Date Time Temp Pulse Resp B/P (MAP) Pulse Ox O2 Delivery O2 Flow Rate FiO2 08/07/17 12:20 82 19 28 08/07/17 12:26 96.9 126/74 100 Room Air 97.0 Sp02 EP Interpretation: reviewed, normal General Appearance: no apparent distress, other - encephalopathy Head: normocephalic Eyes: bilateral eye normal inspection, bilateral eye PERRL ENT: normal ENT inspection Neck: tracheotomy Respiratory: chest non-tender, lungs clear, normal breath sounds, speaking full sentences Cardiovascular #1: regular rate, rhythm, no edema Gastrointestinal: distended - Gtube in place. missing cholecystectomy tube Rectal: deferred Genitourinary: no CVA tenderness Musculoskeletal: normal inspection Neurologic: other - encephalopathy Psychiatric: other - encepalopathy Skin: normal inspection Lymphatic: normal inspection Medical Decision Making Diagnostic Impression: Primary Impression: Sepsis Qualified Codes: A41.9 - Sepsis, unspecified organism Additional Impressions: UTI (urinary tract infection) Qualified Codes: N39.0 - Urinary tract infection, site not specified Abdominal distention Chronic vegetative state Ventilator dependent ER Course Hospital Course 46-year-old male presents ED with abdominal distension after cholecystectomy tube pulled out Differential diagnoses include: intrabdominal abscess, free air, SBO Clinical course Patient placed on stretcher. cafeteria monitor. After initial history and physical I ordered labs, IV fluids, and CT scan Labs - noted leukocytosis, electrolytes ok, lactate 3.9, UA + bacteria CT abdomen and pelvis - distended loops of bowel, no transition point, chronic pyelonephritis broad spectrum antibiotics given. Dr Franks informed Case discussed with Dr. Granda (covering for [place]) and he agreed to accept the patient to his service for further care and support I feel this is a highly complex case requiring extensive working including EKG/ Rhythm strip, Xray/CT/US, Blood/urine lab work, repeat exams while in ED, and administration of strong opiates/narcotics for pain control, admission to hospital or close patient follow up. Diagnosis - sepsis, UTI, abdominal distension, chronic vegetative state, ventilator dependent Patient admitted to [facility] in serious condition Labs Test 08/07/17 12:40 08/07/17 12:45 Urine Color Yellow Urine Appearance Slightly cloudy Urine pH 6 (4.5-8.0) Urine Specific Seltzer 1.015 (1.005-1.035) Urine Protein 3+ (NEGATIVE) Urine Glucose (UA) Negative (NEGATIVE) Urine Ketones 1+ (NEGATIVE) Urine Occult Blood 4+ (NEGATIVE) Urine Nitrite Negative (NEGATIVE) Urine Bilirubin Negative (NEGATIVE) Urine Urobilinogen 1 MG/DL (0.0-1.0) Urine Leukocyte Esterase 2+ (NEGATIVE) White Blood Count 13.8 K/UL (4.8-10.8) Red Blood Count 4.04 M/UL (4.70-6.10) Hemoglobin 11.7 G/DL (14.2-18.0) Hematocrit 35.9 % (42.0-52.0) Mean Corpuscular Volume 89 FL (80-99) Mean Corpuscular Hemoglobin 28.9 PG (27.0-31.0) Mean Corpuscular Hemoglobin Concent 32.5 G/DL (32.0-36.0) Red Cell Distribution Width 15.4 % (11.6-14.8) Platelet Count 311 K/UL (150-450) Mean Platelet Volume 9.4 FL (6.5-10.1) Neutrophils (%) (Auto) 69.5 % (45.0-75.0) Lymphocytes (%) (Auto) 21.3 % (20.0-45.0) Monocytes (%) (Auto) 7.2 % (1.0-10.0) Eosinophils (%) (Auto) 1.3 % (0.0-3.0) Basophils (%) (Auto) 0.7 % (0.0-2.0) Prothrombin Time 9.8 SEC (9.30-11.50) Prothromb Time International Ratio 0.9 (0.9-1.1) Activated Partial Thromboplast Time 26 SEC (23-33) Sodium Level 138 MMOL/L (136-145) Potassium Level 4.4 MMOL/L (3.5-5.1) Chloride Level 101 MMOL/L (98-107) Carbon Dioxide Level 28 MMOL/L (21-32) Anion Gap 10 mmol/L (5-15) Blood Urea Nitrogen 16 mg/dL (7-18) Creatinine 0.7 MG/DL (0.55-1.30) Estimat Glomerular Filtration Rate > 60 mL/min (>60) Glucose Level 146 MG/DL (74-106) Lactic Acid Level 3.90 mmol/L (0.66-2.22) Calcium Level 9.8 MG/DL (8.5-10.1) Total Bilirubin 0.4 MG/DL (0.2-1.0) Aspartate Amino Transf (AST/SGOT) 33 U/L (15-37) Alanine Aminotransferase (ALT/SGPT) 93 U/L (12-78) Alkaline Phosphatase 65 U/L (46-116) Total Protein 8.7 G/DL (6.4-8.2) Albumin 3.2 G/DL (3.4-5.0) Globulin 5.5 g/dL Albumin/Globulin Ratio 0.6 (1.0-2.7) EKG Diagnostic Results Rate: normal Rhythm: NSR ST Segments: no acute changes ASA given to the pt in ED: No Rhythm Strip Diag. Results EP Interpretation: yes Rhythm: NSR, no PVC's, no ectopy Chest X-Ray Diagnostic Results Chest X-Ray Diagnostic Results : Chest X-Ray Ordered: Yes Indication: Shortness of Breath EP Interpretation: Yes Interpretation: no consolidation, no effusion, no pneumothorax, no acute cardiopulmonary disease, other - trach in place Impression: No acute disease Electronically Signed by: Electronically signed by Sarthak Gonzáles MD CT/MRI/US Diagnostic Results CT/MRI/US Diagnostic Results : Imaging Test Ordered: CT A/P Impression diffuse distended loops of bowel. no obvious transition point. thickening suggesting colitis Last Vital Signs Date Time Temp Pulse Resp B/P (MAP) Pulse Ox O2 Delivery O2 Flow Rate FiO2 08/07/17 13:12 97.0 83 16 117/80 100 Mechanical Ventilator 28 97.0 Status: improved Disposition: ADMITTED INPATIENT Condition: Serious Referrals: Suzette Wallace MD (PCP) SARTHAK GONZÁLES M.D. Aug 07, 2017 13:41
[2017-08-07 14:09] VITALS: BP 123/79
[2017-08-07] MEDS ORDERED: Piperacillin/Tazobactam 3.375 GM in D5W 110 ML IVPB ONE (14:15)
[2017-08-07] MEDS ORDERED: Zosyn 3.375gm inj ONE (14:19)
--- NOTE | 2017-08-07 15:13 | Diagnostic Imaging Report ---
Indication: Pain and abdominal distention Technique: One view of the chest Comparison: 04/29/2017 Findings: There is a tracheostomy. There are bilateral basilar atelectatic changes. The heart size is normal. Impression: Bilateral basilar atelectasis No acute process otherwise
[2017-08-07 15:27] VITALS: BP 111/87
--- NOTE | 2017-08-07 15:42 | Consultation ---
History of Present Illness General Date patient seen: Aug 07, 2017 Time patient seen: 15:34 Chief Complaint: Gastrointestinal Illness Present Illness HPI 46 y/o M with hx of asthma/COPD, HTN, Dm2, Dementia, CVA s/p vegetative state, chronic resp failure vent/trach dependant, dysphagia s/p G-tube, seizure disorder, cholecystitis(?chronic) s/p cholecystostomy tube, SNF resident presents to ED on 08/07 with abdominal distention after patient pulled off his cholecystostomy tube. No reported fevers/chills. Allergies: Coded Allergies: NO KNOWN ALLERGIES (Unverified Allergy, Unknown, 01/27/15) NO KNOWN DRUG ALLERGIES (Unverified Allergy, Unknown, 06/28/15) Medication History Scheduled Cefepime Hcl/Dextrose, Iso-Osm (Cefepime 2 Gm Injection), 2 GM IV EVERY 8 HOURS Cranberry Extract (Cranberry Juice Powder), 425 MG GT DAILY, (Reported) Dextran 70/Hypromellose (Artificial Tears Eye Drops*), 1 DROP BOTH EYES EVERY 6 HOURS, (Reported) Esomeprazole Magnesium (Nexium), 40 MG GT BID, (Reported) Ferrous Sulfate (Ferrous Sulfate), 7.5 ML GT BID, (Reported) Heparin Sod (Porcine) (Heparin Sodium*), 5,000 UNITS SUBQ EVERY 12 HOURS, ( Reported) Insulin Glargine (Lantus), 20 UNITS SUBQ BEDTIME, (Reported) Lactulose (Lactulose*), 30 ML ORAL BID, (Reported) Levetiracetam (Keppra), 5 ML GT BID, (Reported) Lorazepam (Lorazepam), 2 MG IM Q4H, (Reported) Magnesium Oxide (Magnesium Oxide), 500 MG GT DAILY, (Reported) Metformin Hcl* (Metformin Hcl*), 1,000 MG GT BID, (Reported) Multivit-Min/Iron Fum/Folic AC (Axgjk-Ljiqaod-Zamnbzyo Tablet), 1 EACH GT DAILY, (Reported) Piperacillin Sodium/Tazobactam (Zosyn 3.375 Gram Vial), 3.375 GM IV EVERY 6 HOURS, (Reported) Potassium Chloride (Potassium Chloride), 20 MEQ ORAL DAILY, (Reported) Thiamine Hcl (Vitamin B1*), 100 MG GT DAILY, (Reported) Vit C/Ascorbate Ca/Ascorb Sod (Vitamin C 500 Mg/15 Ml Liquid), 500 MG GT DAILY, (Reported) Vitamin D (Vitamin D3), 5,000 UNITS GT DAILY, (Reported) Scheduled PRN Acetaminophen 160MG/5ML* (Acetaminophen*), 5 ML ORAL Q4HR PRN for temp, ( Reported) Albuterol Sulfate* (Albuterol Sulfate Hhn*), 3 ML INH EVERY 3 HOURS PRN for Shortness of Breath, (Reported) Ipratropium/Albuterol Sulfate (DuoNeb 0.5-3(2.5)mg/3ml), 3 ML HHN EVERY 4 HOURS PRN for Shortness of Breath Magnesium Hydroxide* (Milk Of Magnesia*), 30 ML ORAL DAILY PRN for Constipation, (Reported) Ondansetron (Zofran), 4 MG ORAL Q6H PRN for Nausea & Vomiting, (Reported) Polyethylene Glycol 3350* (Miralax*), 17 GM GT DAILY PRN for Constipation, ( Reported) Miscellaneous Medications Insulin Lispro (Humalog), 0 SUBQ, (Reported) Discontinued Medications Cholecalciferol (Vitamin D3)* (Vitamin D*), 5,000 UNITS GT DAILY, (Reported) Discontinued Reason: Therapy completed Enoxaparin* (Lovenox*), 40 MG SUBQ DAILY, (Reported) Discontinued Reason: Therapy completed Ertapenem Sodium* (INVanz*), 1 GM IVPB Q24H Discontinued Reason: Therapy completed Metronidazole* (Flagyl*), 500 MG GT EVERY 8 HOURS, (Reported) Discontinued Reason: Therapy completed Multivits W-Min/Ferrous Gluc (Centamin Liquid), 9 MG GT DAILY, (Reported) Discontinued Reason: Therapy completed Ondansetron (Zofran), 4 MG IM EVERY 8 HOURS PRN for Nausea & Vomiting, (Reported ) Discontinued Reason: Therapy completed Ondansetron* (Zofran*), 4 MG GT EVERY 4 HOURS PRN for Nausea & Vomiting, ( Reported) Discontinued Reason: Therapy completed Polyethylene Glycol* (Miralax*), 17 GM ORAL DAILYPRN PRN for Constipation Discontinued Reason: Therapy completed Patient History Healthcare decision maker Resuscitation status Advanced Directive on File Patient History Narrative Pmhx: as above Shx: Denies: smoking, alcohol use, drug usef Fhx: non contributory Physical Exam Physical Exam Narrative General Appearance: no apparent distress, other - encephalopathy Head: normocephalic Eyes: bilateral eye normal inspection, bilateral eye PERRL ENT: normal ENT inspection Neck: tracheotomy Respiratory: chest non-tender, lungs clear, normal breath sounds, speaking full sentences Cardiovascular regular rate, rhythm, no edema Gastrointestinal: distended - Gtube in place. missing cholecystectomy tube Genitourinary: no CVA tenderness Musculoskeletal: normal inspection Skin: normal inspection Last 24 Hour Vital Signs Date Time Temp Pulse Resp B/P (MAP) Pulse Ox O2 Delivery O2 Flow Rate FiO2 08/07/17 15:27 97.0 88 15 111/87 99 Mechanical Ventilator 28 97.0 08/07/17 14:09 97.0 81 17 123/79 100 Mechanical Ventilator 28 97.0 08/07/17 13:12 97.0 83 16 117/80 100 Mechanical Ventilator 28 97.0 08/07/17 12:30 28 08/07/17 12:26 96.9 85 24 126/74 100 Room Air 97.0 08/07/17 12:20 82 19 28 Laboratory Tests Test 08/07/17 12:40 08/07/17 12:45 08/07/17 14:12 Urine Color Yellow Urine Appearance Slightly cloudy Urine pH 6 (4.5-8.0) Urine Specific [place] 1.015 (1.005-1.035) Urine Protein 3+ (NEGATIVE) H Urine Glucose (UA) Negative (NEGATIVE) Urine Ketones 1+ (NEGATIVE) H Urine Occult Blood 4+ (NEGATIVE) H Urine Nitrite Negative (NEGATIVE) Urine Bilirubin Negative (NEGATIVE) Urine Urobilinogen 1 MG/DL (0.0-1.0) H Urine Leukocyte Esterase 2+ (NEGATIVE) H Urine RBC 10-15 /HPF (0 - 0) H Urine WBC 30-40 /HPF (0 - 0) H Urine Squamous Epithelial Cells Few /LPF (NONE/OCC) Urine Bacteria Few /HPF (NONE) Urine Yeast Moderate /HPF (NONE) H White Blood Count 13.8 K/UL (4.8-10.8) H Red Blood Count 4.04 M/UL (4.70-6.10) L Hemoglobin 11.7 G/DL (14.2-18.0) L Hematocrit 35.9 % (42.0-52.0) L Mean Corpuscular Volume 89 FL (80-99) Mean Corpuscular Hemoglobin 28.9 PG (27.0-31.0) Mean Corpuscular Hemoglobin Concent 32.5 G/DL (32.0-36.0) Red Cell Distribution Width 15.4 % (11.6-14.8) H Platelet Count 311 K/UL (150-450) Mean Platelet Volume 9.4 FL (6.5-10.1) Neutrophils (%) (Auto) 69.5 % (45.0-75.0) Lymphocytes (%) (Auto) 21.3 % (20.0-45.0) Monocytes (%) (Auto) 7.2 % (1.0-10.0) Eosinophils (%) (Auto) 1.3 % (0.0-3.0) Basophils (%) (Auto) 0.7 % (0.0-2.0) Prothrombin Time 9.8 SEC (9.30-11.50) Prothromb Time International Ratio 0.9 (0.9-1.1) Activated Partial Thromboplast Time 26 SEC (23-33) Sodium Level 138 MMOL/L (136-145) Potassium Level 4.4 MMOL/L (3.5-5.1) Chloride Level 101 MMOL/L (98-107) Carbon Dioxide Level 28 MMOL/L (21-32) Anion Gap 10 mmol/L (5-15) Blood Urea Nitrogen 16 mg/dL (7-18) Creatinine 0.7 MG/DL (0.55-1.30) Estimat Glomerular Filtration Rate > 60 mL/min (>60) Glucose Level 146 MG/DL (74-106) H Lactic Acid Level 3.90 mmol/L (0.66-2.22) H 2.90 mmol/L (0.66-2.22) H Calcium Level 9.8 MG/DL (8.5-10.1) Total Bilirubin 0.4 MG/DL (0.2-1.0) Aspartate Amino Transf (AST/SGOT) 33 U/L (15-37) Alanine Aminotransferase (ALT/SGPT) 93 U/L (12-78) H Alkaline Phosphatase 65 U/L (46-116) Total Protein 8.7 G/DL (6.4-8.2) H Albumin 3.2 G/DL (3.4-5.0) L Globulin 5.5 g/dL Albumin/Globulin Ratio 0.6 (1.0-2.7) L Height (Feet): 5 Height (Inches): 10.00 Weight (Pounds): 240 Medications Current Medications Medications (Trade) Dose Ordered Sig/Tony Route PRN Reason Start Time Stop Time Status Last Admin Dose Admin Piperacillin Sod/ Tazobactam Sod 3.375 gm/Dextrose 110 ml @ 27.5 mls/hr ONCE ONCE IVPB 08/07/17 14:15 08/07/17 18:14 08/07/17 14:20 Assessment/Plan Assessment/Plan Abx: Zosyn 08/07- Assessment: Abd distention after removal of Cholecystostomy tube -CT abd/p p Leukocytosis- 2ry to above -afebrile -u/a wbc 30-40, nit -, leuk +2 cholecystitis(?chronic) s/p cholecystostomy tube asthma/COPD HTN Dm2 Dementia CVA s/p vegetative state chronic resp failure vent/trach dependant dysphagia s/p G-tube seizure disorder SNF resident Plan: -Continue empiric ZOsyn #[address] abd/p and reposition of cholecystostomy tube -f/u cx -Monitor CBC, BMP, temperatures -trach/peg care -aspiration precautions Thank you for this consultation. Will continue to follow along with you. Discussed with RN, Laura Gimenez M.D. Aug 07, 2017 15:42
[2017-08-07 16:31] VITALS: BP 112/73
--- NOTE | 2017-08-07 16:49 | Diagnostic Imaging Report ---
Clinical Indication: Abdominal pain and distention Technique: No oral contrast utilized, per emergency room physician request IV administration nonionic contrast. Venous phase spiral acquisition obtained through the abdomen and pelvis. Multiplanar reconstructions were generated. Total dose length product 1174.5 mGycm. CTDIvol(s) 18.84 mGy. Dose reduction achieved using automated exposure control Comparison: 12/22/2014 Findings: Per technologist notes, patient recently pulled out a cholecystostomy tube. The tract of the tube is seen in the subcutaneous fat. The gallbladder appears unremarkable. There is no evidence of biliary leakage or biloma. The gallbladder is nondistended, and no gallstones are evident. There is no biliary ductal dilatation. The liver is mildly enlarged, otherwise unremarkable. The pancreas is atrophic, as previously. The spleen, adrenals are unremarkable. Again demonstrated is bilateral perinephric fat stranding. At least 2 calculi are seen in the right kidney, measuring up to 4 cm diameter. One of these is evident previously. The left kidney demonstrates at least 3 calyceal calculi. No hydronephrosis or hydroureter or ureteral calculi are demonstrated. The right kidney again demonstrates a lower pole cyst. The left kidney demonstrates one or more subcentimeter low-attenuation lesions which are too small to characterize, most likely benign simple cysts. The triangular perfusion abnormality in the left kidney seen previously is no longer evident. No retroperitoneal or mesenteric mass or adenopathy. No pelvic mass or adenopathy. The bladder is empty, contains a Waddell catheter. There are a few scattered sigmoid diverticula. Considerable gas is seen in the proximal to mid colon, but no evidence of downstream obstructive lesion. Considerable fluid is seen in the colon distally. There is equivocal mild wall thickening of the proximal ascending colon wall and equivocal mild stranding of the pericolonic fat. The appendix is normal. Small bowel loops are mildly prominent, gas and fluid-filled, but not frankly dilated. There is a gastrostomy in good position. The distal esophagus is unremarkable. The duodenum is unremarkable. There are bilateral basilar pulmonary atelectatic changes. The heart is mildly enlarged, and there is a large pericardial fat pad. Impression: No evidence of biloma or other complications relatable to stated clinical history of recent cholecystostomy removal Borderline distended gas-filled colon, prominent colon gas extending to the level of the mid to distal distal descending colon, without evidence of obstructive lesion. Probably functional in nature. There is questionably some focal wall thickening and pericolonic infiltration involving the proximal ascending colon. This as well as proximal and distal fluid could indicate mild colitis changes. Prominent gas and fluid-filled small bowel, no evidence of obstructive pathology. Findings may represent ileus or mild enteritis changes as well. Mild hepatomegaly Mild bilateral perinephric fat stranding, unchanged, probably chronic Nonobstructive bilateral intrarenal calculi. Waddell catheter Breast ostomy Sigmoid diverticulosis. No evidence of diverticulitis Bilateral basilar pulmonary atelectasis Cardiomegaly Borderline hepatomegaly Right renal cyst. Left renal subcentimeter low-attenuation lesions too small to characterize, most likely benign simple cyst. No further follow-up necessary Other findings as noted, including large pericardial fat pad. Findings Findings discussed by phone with Dr. Clifton at the time of interpretation The CT scanner at [facility] is accredited by the [employer] and the scans are performed using protocols designed to limit radiation exposure to as low as reasonably achievable to attain images of sufficient resolution adequate for diagnostic evaluation.
[2017-08-07] MEDS ORDERED: Acetaminophen Soln 160mg/5ml ORAL PRN (18:30)
[2017-08-07] MEDS ORDERED: Albuterol/Ipratropium 3ml neb HHN PRN (18:30)
[2017-08-07] MEDS ORDERED: Miralax 17gm pkt GT PRN (18:30)
[2017-08-07] MEDS ORDERED: Albuterol ud Inhalation IN-LINE PRN (18:30)
[2017-08-07] MEDS ORDERED: Milk of Magnesia 30ml Ud ORAL PRN (18:30)
[2017-08-07] MEDS ORDERED: Morphine Sulfate 2mg/ml Inj IVP PRN (18:30)
[2017-08-07 20:00] VITALS: BP 94/68
[2017-08-07] MEDS ORDERED: Piperacillin/Tazobactam 3.375 GM in NS 110 ML IVPB SCH (22:00)
[2017-08-07] MEDS: Piperacillin/Tazobactam 3.375 GM in D5W 110 ML IVPB SCH (22:39)
[2017-08-07] MEDS: D5 1/2NS 1,000 ML IV SCH (22:39)
[2017-08-07] MEDS: metFORMIN 500mg tab GT SCH (22:51)
[2017-08-07] MEDS: levETIRAcetam 500mg/5ml Liquid GT SCH (22:52)
[2017-08-07] MEDS: Pantoprazole Inj IVP SCH (22:52)
[2017-08-07] MEDS: Heparin 5000 units/ml inj SUBQ SCH (22:55)
[2017-08-08] VITALS: BP 147/63
[2017-08-08] MEDS: NovoLOG Insulin Flexpen SUBQ SCH ×4 (00:52→18:32)
[2017-08-08 04:00] VITALS: BP 109/66
[2017-08-08 04:45] LABS: BASOPHILS % (AUTO) 0.8 % (0.0-2.0); EOSINOPHILS % (AUTO) 2.6 % (0.0-3.0); HEMOGLOBIN 9.3 G/DL (14.2-18.0); LYMPHOCYTES % (AUTO) 26.4 % (20.0-45.0); MEAN CORPUSCULAR VOLUME 89 FL (80-99); MONOCYTES % (AUTO) 6.5 % (1.0-10.0); NEUTROPHILS % (AUTO) 63.7 % (45.0-75.0); PLATELET COUNT 324 K/UL (150-450); RED BLOOD COUNT 3.13 M/UL (4.70-6.10); RED CELL DISTRIBUTION WIDTH 16.1 % (11.6-14.8); WHITE BLOOD COUNT 9.6 K/UL (4.8-10.8)
[2017-08-08 04:55] LABS: AMYLASE 26 U/L (25-115); ANION GAP 11 mmol/L (5-15); BLOOD UREA NITROGEN 12 mg/dL (7-18); CALCIUM 8.8 MG/DL (8.5-10.1); CARBON DIOXIDE 25 MMOL/L (21-32); CHLORIDE 103 MMOL/L (98-107); CREATININE 0.5 MG/DL (0.55-1.30); POTASSIUM 3.9 MMOL/L (3.5-5.1); SODIUM 139 MMOL/L (136-145)
[2017-08-08] MEDS: D5 1/2NS 1,000 ML IV SCH ×2 (05:20→15:53)
[2017-08-08] MEDS: Piperacillin/Tazobactam 3.375 GM in D5W 110 ML IVPB SCH ×3 (05:45→21:16)
[2017-08-08 08:00] VITALS: BP 97/68
[2017-08-08] MEDS: metFORMIN 500mg tab GT SCH ×2 (08:51→20:57)
[2017-08-08] MEDS: levETIRAcetam 500mg/5ml Liquid GT SCH ×2 (08:52→20:57)
[2017-08-08] MEDS: Thiamine 100mg tab GT SCH (08:52)
[2017-08-08] MEDS: Vitamin D 400 INTLU TAB ORAL SCH (08:52)
[2017-08-08] MEDS: Heparin 5000 units/ml inj SUBQ SCH ×2 (08:54→21:01)
--- NOTE | 2017-08-08 09:19 | History & Physical ---
History and Physical History & Physicial seen and examined. Dic completed Honey Granda MD Aug 08, 2017 09:19
--- NOTE | 2017-08-08 09:20 | General Progress Note ---
Assessment/Plan Status: stable Assessment/Plan 1- Abd distention , post self extraction of cholecystectomy tube 2- SIRS 3- UTI- HCA 4- PEG-Trach Plan: Pulmonary ID Cardio consulted Subjective ROS Limited/Unobtainable: Yes Allergies: Coded Allergies: NO KNOWN DRUG ALLERGIES (Unverified Allergy, Unknown, 06/28/15) Objective Last 24 Hour Vital Signs Date Time Temp Pulse Resp B/P (MAP) Pulse Ox O2 Delivery O2 Flow Rate FiO2 08/08/17 08:00 98.2 71 19 97/68 100 28 98.2 08/08/17 07:29 69 12 28 08/08/17 04:52 51 12 28 08/08/17 04:00 53 08/08/17 04:00 98.1 58 12 109/66 98 Mechanical Ventilator 28 98.1 08/08/17 04:00 28 08/08/17 03:30 58 12 28 08/08/17 01:30 64 14 28 08/08/17 00:03 66 08/08/17 00:00 97.9 68 14 147/63 98 Mechanical Ventilator 28 97.9 08/08/17 00:00 28 08/07/17 23:30 62 12 28 08/07/17 21:30 60 12 28 08/07/17 20:39 86 12 Mechanical Ventilator 28 08/07/17 20:00 62 08/07/17 20:00 28 08/07/17 20:00 98.0 63 12 94/68 100 Mechanical Ventilator 28 98.0 08/07/17 19:30 86 12 Mechanical Ventilator 28 08/07/17 19:30 67 12 28 08/07/17 19:00 12 08/07/17 17:32 97.0 86 20 112/73 100 Mechanical Ventilator 28 97.0 08/07/17 16:31 97.0 86 20 112/73 100 Mechanical Ventilator 28 97.0 08/07/17 15:35 83 17 28 08/07/17 15:27 97.0 88 15 111/87 99 Mechanical Ventilator 28 97.0 08/07/17 14:09 97.0 81 17 123/79 100 Mechanical Ventilator 28 97.0 08/07/17 13:12 97.0 83 16 117/80 100 Mechanical Ventilator 28 97.0 08/07/17 12:30 28 08/07/17 12:26 96.9 85 24 126/74 100 Room Air 97.0 08/07/17 12:20 82 19 28 Intake and Output 08/07/17 08/08/17 19:00 07:00 Intake Total 901.25 ml Output Total 650 ml 400 ml Balance -650 ml 501.25 ml Intake IV Total 901.25 ml Output Urine Total 650 ml 400 ml # Voids 1 # Bowel Movements 3 3 Laboratory Tests 08/07/17 12:40: Urine Color Yellow, Urine Appearance Slightly cloudy, Urine pH 6, Urine Specific [place] 1.015, Urine Protein 3+H, Urine Glucose (UA) Negative, Urine Ketones 1+H, Urine Occult Blood 4+H, Urine Nitrite Negative, Urine Bilirubin Negative, Urine Urobilinogen 1H, Urine Leukocyte Esterase 2+H, Urine RBC 10-15H , Urine WBC 30-40H, Urine Squamous Epithelial Cells Few, Urine Bacteria Few, Urine Yeast ModerateH 08/07/17 12:45: White Blood Count 13.8H, Red Blood Count 4.04L, Hemoglobin 11.7L, Hematocrit 35.9L, Mean Corpuscular Volume 89, Mean Corpuscular Hemoglobin 28.9, Mean Corpuscular Hemoglobin Concent 32.5, Red Cell Distribution Width 15.4H, Platelet Count 311, Mean Platelet Volume 9.4, Neutrophils (%) (Auto) 69.5, Lymphocytes (%) (Auto) 21.3, Monocytes (%) (Auto) 7.2, Eosinophils (%) (Auto) 1.3, Basophils (%) (Auto) 0.7, Prothrombin Time 9.8, Prothromb Time International Ratio 0.9, Activated Partial Thromboplast Time 26, Sodium Level 138, Potassium Level 4.4, Chloride Level 101, Carbon Dioxide Level 28, Anion Gap 10, Blood Urea Nitrogen 16, Creatinine 0.7, Estimat Glomerular Filtration Rate > 60, Glucose Level 146H, Lactic Acid Level 3.90H, Calcium Level 9.8, Total Bilirubin 0.4, Aspartate Amino Transf (AST/SGOT) 33, Alanine Aminotransferase (ALT/SGPT) 93H, Alkaline Phosphatase 65, Total Protein 8.7H, Albumin 3.2L, Globulin 5.5, Albumin/Globulin Ratio 0.6L 08/07/17 14:12: Lactic Acid Level 2.90H 08/08/17 04:00: White Blood Count 9.6, Red Blood Count 3.13L, Hemoglobin 9.3L, Hematocrit 28.0L , Mean Corpuscular Volume 89, Mean Corpuscular Hemoglobin 29.6, Mean Corpuscular Hemoglobin Concent 33.2, Red Cell Distribution Width 16.1H, Platelet Count 324, Mean Platelet Volume 9.5, Neutrophils (%) (Auto) 63.7, Lymphocytes (%) (Auto) 26.4, Monocytes (%) (Auto) 6.5, Eosinophils (%) (Auto) 2.6, Basophils (%) (Auto) 0.8, Sodium Level 139, Potassium Level 3.9, Chloride Level 103, Carbon Dioxide Level 25, Anion Gap 11, Blood Urea Nitrogen 12, Creatinine 0.5L, Estimat Glomerular Filtration Rate > 60, Glucose Level 165H, Calcium Level 8.8, Hemoglobin A1c 6.9H, Troponin I 0.000, Amylase Level 26, Lipase 65L Height (Feet): 5 Height (Inches): 10.00 Weight (Pounds): 240 General Appearance: no apparent distress EENT: other - Trach in place, not verbal, limited exam Cardiovascular: tachycardia Respiratory/Chest: rhonchi - bilaterally, other - Trach in place, not verbal, limited exam Abdomen: soft, other - PEG in place, not verbal, limited exam Extremities: other - quadriPlegia Neurologic: other - not verbal, limited exam Honey Granda MD Aug 08, 2017 09:20
[2017-08-08] MEDS: Pantoprazole Inj IVP SCH ×2 (10:02→20:57)
[2017-08-08 12:00] VITALS: BP 108/72
--- NOTE | 2017-08-08 12:32 | Infectious Diseases Prog Note ---
Assessment/Plan Assessment/Plan Abx: Zosyn 08/07- Assessment: Abd distention after removal of Cholecystostomy tube- ? mild colitis/enteritis -CT abd/p: No evidence of biloma or other complications relatable to stated clinical history of recent cholecystostomy removal. Borderline distended gas- filled colon, prominent colon gas extending to the level of the mid to distal distal descending colon, without evidence of obstructive lesion. Probably functional in nature. There is questionably some focal wall thickening and pericolonic infiltration involving the proximal ascending colon. This as well as proximal and distal fluid could indicate mild colitis changes. Prominent gas and fluid-filled small bowel, no evidence of obstructive pathology. Findings may represent ileus or mild enteritis changes as well. Mild hepatomegaly. Mild bilateral perinephric fat stranding, unchanged, probably chronic. Nonobstructive bilateral intrarenal calculi. Waddell catheter. Breast ostomy. Sigmoid diverticulosis. No evidence of diverticulitis. Bilateral basilar pulmonary atelectasis. Cardiomegaly. Borderline hepatomegaly Leukocytosis- 2ry to above- resolved -afebrile -u/a wbc 30-40, nit -, leuk +2 chronic cholecystitis s/p cholecystostomy tube asthma/COPD HTN Dm2 Dementia CVA s/p vegetative state chronic resp failure vent/trach dependant dysphagia s/p G-tube seizure disorder SNF resident Plan: -Continue empiric ZOsyn #2 for now -Recommend GI eval to determine if replacement of Cholecystostomy tube is needed -f/u cx -Monitor CBC, BMP, temperatures -trach/peg care -aspiration precautions Thank you for this consultation. Will continue to follow along with you. Discussed with RN, Subjective Allergies: Coded Allergies: NO KNOWN ALLERGIES (Unverified Allergy, Unknown, 01/27/15) NO KNOWN DRUG ALLERGIES (Unverified Allergy, Unknown, 06/28/15) Subjective afebrile leukocytosis resolved Bcx p Objective Vital Signs Last 24 Hour Vital Signs Date Time Temp Pulse Resp B/P (MAP) Pulse Ox O2 Delivery O2 Flow Rate FiO2 08/08/17 10:43 70 12 28 08/08/17 09:29 67 12 28 08/08/17 08:00 28 08/08/17 08:00 75 08/08/17 08:00 98.2 71 19 97/68 100 28 98.2 08/08/17 07:29 69 12 28 3/28/18 04:52 51 12 28 08/08/17 04:00 53 08/08/17 04:00 98.1 58 12 109/66 98 Mechanical Ventilator 28 98.1 08/08/17 04:00 28 08/08/17 03:30 58 12 28 08/08/17 01:30 64 14 28 08/08/17 00:03 66 08/08/17 00:00 97.9 68 14 147/63 98 Mechanical Ventilator 28 97.9 08/08/17 00:00 28 08/07/17 23:30 62 12 28 08/07/17 21:30 60 12 28 08/07/17 20:39 86 12 Mechanical Ventilator 28 08/07/17 20:00 62 08/07/17 20:00 28 08/07/17 20:00 98.0 63 12 94/68 100 Mechanical Ventilator 28 98.0 08/07/17 19:30 86 12 Mechanical Ventilator 28 08/07/17 19:30 67 12 28 08/07/17 19:00 12 08/07/17 17:32 97.0 86 20 112/73 100 Mechanical Ventilator 28 97.0 08/07/17 16:31 97.0 86 20 112/73 100 Mechanical Ventilator 28 97.0 08/07/17 15:35 83 17 28 08/07/17 15:27 97.0 88 15 111/87 99 Mechanical Ventilator 28 97.0 08/07/17 14:09 97.0 81 17 123/79 100 Mechanical Ventilator 28 97.0 08/07/17 13:12 97.0 83 16 117/80 100 Mechanical Ventilator 28 97.0 08/07/17 12:30 28 08/07/17 12:26 96.9 85 24 126/74 100 Room Air 97.0 Height (Feet): 5 Height (Inches): 10.00 Weight (Pounds): 240 Objective General Appearance: no apparent distress, other - encephalopathy Head: normocephalic Eyes: bilateral eye normal inspection, bilateral eye PERRL ENT: normal ENT inspection Neck: tracheotomy Respiratory: chest non-tender, lungs clear, normal breath sounds, speaking full sentences Cardiovascular regular rate, rhythm, no edema Gastrointestinal: distended - Gtube in place. missing cholecystectomy tube Genitourinary: no CVA tenderness Musculoskeletal: normal inspection Skin: normal inspection Microbiology Date/Time Source Procedure Growth Status 08/07/17 12:40 Urine,Clean Catch Urine Culture - Preliminary NO GROWTH Resulted Laboratory Tests Test 08/07/17 12:40 08/07/17 12:45 08/07/17 14:12 08/08/17 04:00 Urine Color Yellow Urine Appearance Slightly cloudy Urine pH 6 (4.5-8.0) Urine Specific [place] 1.015 (1.005-1.035) Urine Protein 3+ (NEGATIVE) H Urine Glucose (UA) Negative (NEGATIVE) Urine Ketones 1+ (NEGATIVE) H Urine Occult Blood 4+ (NEGATIVE) H Urine Nitrite Negative (NEGATIVE) Urine Bilirubin Negative (NEGATIVE) Urine Urobilinogen 1 MG/DL (0.0-1.0) H Urine Leukocyte Esterase 2+ (NEGATIVE) H Urine RBC 10-15 /HPF (0 - 0) H Urine WBC 30-40 /HPF (0 - 0) H Urine Squamous Epithelial Cells Few /LPF (NONE/OCC) Urine Bacteria Few /HPF (NONE) Urine Yeast Moderate /HPF (NONE) H White Blood Count 13.8 K/UL (4.8-10.8) H 9.6 K/UL (4.8-10.8) Red Blood Count 4.04 M/UL (4.70-6.10) L 3.13 M/UL (4.70-6.10) L Hemoglobin 11.7 G/DL (14.2-18.0) L 9.3 G/DL (14.2-18.0) L Hematocrit 35.9 % (42.0-52.0) L 28.0 % (42.0-52.0) L Mean Corpuscular Volume 89 FL (80-99) 89 FL (80-99) Mean Corpuscular Hemoglobin 28.9 PG (27.0-31.0) 29.6 PG (27.0-31.0) Mean Corpuscular Hemoglobin Concent 32.5 G/DL (32.0-36.0) 33.2 G/DL (32.0-36.0) Red Cell Distribution Width 15.4 % (11.6-14.8) H 16.1 % (11.6-14.8) H Platelet Count 311 K/UL (150-450) 324 K/UL (150-450) Mean Platelet Volume 9.4 FL (6.5-10.1) 9.5 FL (6.5-10.1) Neutrophils (%) (Auto) 69.5 % (45.0-75.0) 63.7 % (45.0-75.0) Lymphocytes (%) (Auto) 21.3 % (20.0-45.0) 26.4 % (20.0-45.0) Monocytes (%) (Auto) 7.2 % (1.0-10.0) 6.5 % (1.0-10.0) Eosinophils (%) (Auto) 1.3 % (0.0-3.0) 2.6 % (0.0-3.0) Basophils (%) (Auto) 0.7 % (0.0-2.0) 0.8 % (0.0-2.0) Prothrombin Time 9.8 SEC (9.30-11.50) Prothromb Time International Ratio 0.9 (0.9-1.1) Activated Partial Thromboplast Time 26 SEC (23-33) Sodium Level 138 MMOL/L (136-145) 139 MMOL/L (136-145) Potassium Level 4.4 MMOL/L (3.5-5.1) 3.9 MMOL/L (3.5-5.1) Chloride Level 101 MMOL/L (98-107) 103 MMOL/L (98-107) Carbon Dioxide Level 28 MMOL/L (21-32) 25 MMOL/L (21-32) Anion Gap 10 mmol/L (5-15) 11 mmol/L (5-15) Blood Urea Nitrogen 16 mg/dL (7-18) 12 mg/dL (7-18) Creatinine 0.7 MG/DL (0.55-1.30) 0.5 MG/DL (0.55-1.30) L Estimat Glomerular Filtration Rate > 60 mL/min (>60) > 60 mL/min (>60) Glucose Level 146 MG/DL (74-106) H 165 MG/DL (74-106) H Lactic Acid Level 3.90 mmol/L (0.66-2.22) H 2.90 mmol/L (0.66-2.22) H Calcium Level 9.8 MG/DL (8.5-10.1) 8.8 MG/DL (8.5-10.1) Total Bilirubin 0.4 MG/DL (0.2-1.0) Aspartate Amino Transf (AST/SGOT) 33 U/L (15-37) Alanine Aminotransferase (ALT/SGPT) 93 U/L (12-78) H Alkaline Phosphatase 65 U/L (46-116) Total Protein 8.7 G/DL (6.4-8.2) H Albumin 3.2 G/DL (3.4-5.0) L Globulin 5.5 g/dL Albumin/Globulin Ratio 0.6 (1.0-2.7) L Hemoglobin A1c 6.9 % (4.3-6.0) H Troponin I 0.000 ng/mL (0.000-0.056) Amylase Level 26 U/L (25-115) Lipase 65 U/L (73-393) L Current Medications Medications (Trade) Dose Ordered Sig/Tony Route PRN Reason Start Time Stop Time Status Last Admin Dose Admin Acetaminophen (Tylenol Peds) 160 mg Q4H PRN ORAL Temp > 100 08/07/17 18:30 09/06/17 18:29 Albuterol Sulfate (Proventil) 2.5 mg Q3H PRN IN-LINE Shortness of Breath 08/07/17 18:30 08/12/17 18:29 Albuterol/ Ipratropium (Albuterol/ Ipratropium) 3 ml Q4H PRN HHN Persistent Shortness of Breath 08/07/17 18:30 08/12/17 18:29 Dextrose (Dextrose 50%) STAT PRN IV Hypoglycemia 08/07/17 18:30 09/06/17 18:29 Dextrose/Sodium Chloride 1,000 ml @ 100 mls/hr Q10H IV 08/07/17 20:30 09/06/17 20:29 08/07/17 22:39 Heparin Sodium (Porcine) (Heparin 5000 units/ml) 5,000 units EVERY 12 HOURS SUBQ 08/07/17 21:00 09/06/17 20:59 08/07/17 22:55 Insulin Aspart (NovoLOG) EVERY 6 HOURS SUBQ 08/08/17 00:00 09/07/17 00:00 08/08/17 05:47 Levetiracetam (Keppra) 500 mg Q12HR GT 08/07/17 21:00 09/06/17 20:59 08/07/17 22:52 Magnesium Hydroxide (Mom) 30 ml DAILYPRN PRN ORAL Constipation 08/07/17 18:30 09/06/17 18:29 Metformin HCl (Glucophage) 1,000 mg Q12HR GT 08/07/17 21:00 09/06/17 20:59 08/07/17 22:51 Morphine Sulfate (Morphine Sulfate) 2 mg Q8H PRN IVP Moderate to Severe Pain 08/07/17 18:30 08/14/17 18:29 Pantoprazole (Protonix) 40 mg EVERY 12 HOURS IVP 08/07/17 21:00 09/06/17 20:59 08/08/17 10:02 Piperacillin Sod/ Tazobactam Sod 3.375 gm/Dextrose 110 ml @ 27.5 mls/hr EVERY 8 HOURS IVPB 08/07/17 22:00 08/14/17 21:59 08/08/17 05:45 Polyethylene Glycol (Miralax) 17 gm DAILYPRN PRN GT Constipation 08/07/17 18:30 09/06/17 18:29 Thiamine HCl (Vitamin B1) 100 mg DAILY GT 08/08/17 09:00 09/07/17 08:59 Vitamin D (Vitamin D) 400 intlu DAILY ORAL 08/08/17 09:00 09/07/17 08:59 Laura Gimenez M.D. Aug 08, 2017 12:32
--- NOTE | 2017-08-08 13:33 | GI Initial Consult Note ---
History of Present Illness General Date patient seen: Aug 08, 2017 Time patient seen: 13:20 Reason for Hospitalization: Gastrointestinal Illness Referring physician: ALLISON ZAMUDIO Reason for Consultation: ABDOMINAL DISTENTION Present Illness HPI 46-year-old male presents ED for evaluation. Patient brought from group home facility with abdominal distention. Per nursing staff distention started today shortly after patient pulled out his cholecystectomy tube. Patient is on ventilator with trach. Upon arrival patient showing no signs of distress. Has encephalopathy and unable to provide any additional history at this time. No reported fevers or chills. No other aggravating relieving factors. No other associated symptoms GI consulted for abdominal distention. Unable to obtain any history from non verbal trached patient. All information obtained from chart. Pt seen, NAD noted with abdominal distention which is firm, tympanic. Per RN report, patient had BM x 1 last night, unknown consistency. CT reviewed noted to have possible ileus, borderline colonic distention in the distal colon with no evidence of obstructive pathology. Has history of EGD in 2014 with dx of gastritis. Service Date: 08/07/17 Procedure: CT Abdomen Pelvis w/Contrast Clinical Indication: Abdominal pain and distention Impression: No evidence of biloma or other complications relatable to stated clinical history of recent cholecystostomy removal Borderline distended gas-filled colon, prominent colon gas extending to the level of the mid to distal distal descending colon, without evidence of obstructive lesion. Probably functional in nature. There is questionably some focal wall thickening and pericolonic infiltration involving the proximal ascending colon. This as well as proximal and distal fluid could indicate mild colitis changes. Prominent gas and fluid-filled small bowel, no evidence of obstructive pathology. Findings may represent ileus or mild enteritis changes as well. Mild hepatomegaly Mild bilateral perinephric fat stranding, unchanged, probably chronic Nonobstructive bilateral intrarenal calculi. Waddell catheter Breast ostomy Sigmoid diverticulosis. No evidence of diverticulitis Bilateral basilar pulmonary atelectasis Cardiomegaly Borderline hepatomegaly Right renal cyst. Left renal subcentimeter low-attenuation lesions too small to characterize, most likely benign simple cyst. No further follow-up necessary Other findings as noted, including large pericardial fat pad. Recent discharge diagnosis: 1. Healthcare-associated sepsis. 2. Gram-negative healthcare-associated urinary tract infection. 3. Functional quadriplegia. 4. Dysphagia, status post percutaneous endoscopic gastrostomy tube. 5. Ventilator-dependent respiratory failure and tracheostomy. 6. Seizure disorder. 7. Abnormal liver function tests. 8. Probable pneumonia. 9. History of acute renal failure. 10. History of extended-spectrum beta-lactamase Escherichia coli urinary tract infection. 11. Sacral decubitus pressure ulcer, no sign of infection, present on admission. 12. Possible PleurX catheter site infection. 13. Cerebrovascular accident. 14. Seizure disorder. 15. Aphasia. 16. Hypertension. 17. Obesity. 18. Diabetes. 19. Anemia. 20. 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 Home Meds Active Scripts Cefepime Hcl/Dextrose, Iso-Osm (CEFEPIME 2 GM INJECTION) 2 Gm/100 Ml Froz.piggy , 2 GM IV EVERY 8 HOURS, #9 BAG Prov:Malu Lindo (Vanchtein) TOBACCO CURER 12/25/14 Ipratropium/Albuterol Sulfate (DuoNeb 0.5-3(2.5)mg/3ml) 3 Ml Ampul.neb, 3 ML HHN EVERY 4 HOURS PRN for Shortness of Breath, #60 EA Prov:Malu Lindo (Vanchtein) TOBACCO CURER 12/25/14 Reported Medications Piperacillin Sodium/Tazobactam (ZOSYN 3.375 GRAM VIAL) 3.375 Gm Vial, 3.375 GM IV EVERY 6 HOURS, VIAL 08/07/17 Ondansetron (Zofran) 4 Mg Tablet, 4 MG ORAL Q6H PRN for Nausea & Vomiting, TAB 08/07/17 Vitamin D (Vitamin D3) 400 Unit Tablet, 5000 UNITS GT DAILY, TAB 08/07/17 Esomeprazole Magnesium (NEXIUM) 40 Mg Capsule.dr, 40 MG GT BID, CAP 08/07/17 Multivit-Min/Iron Fum/Folic AC (Shuip-Mqmrsqh-Lrmdhjiz Tablet) 1 Each Tablet, 1 EACH GT DAILY, TAB 08/07/17 Polyethylene Glycol 3350* (MIRALAX*) 17 Gm Powd.pack, 17 GM GT DAILY PRN for Constipation, PACKET 08/07/17 Dextran 70/Hypromellose (ARTIFICIAL TEARS EYE DROPS*) 15 Ml Drops, 1 DROP BOTH EYES EVERY 6 HOURS, #15 ML 0 Refills 08/07/17 Metformin Hcl* (METFORMIN HCL*) 1,000 Mg Tablet, 1000 MG GT BID, TAB 04/30/17 Lactulose (LACTULOSE*) 20 Gm/30 Ml Solution, 30 ML ORAL BID, ML 0 Refills 04/30/17 Cranberry Extract (CRANBERRY JUICE POWDER) 425 Mg Capsule, 425 MG GT DAILY, CAP 04/30/17 Acetaminophen 160MG/5ML* (ACETAMINOPHEN*) 160 Mg/5 Ml Elixir, 5 ML ORAL Q4HR PRN for temp, ML 0 Refills 04/30/17 Vit C/Ascorbate Ca/Ascorb Sod (VITAMIN C 500 MG/15 ML LIQUID) 500 Mg/15 Ml Liquid, 500 MG GT DAILY, ML 12/19/15 Insulin Glargine (Lantus) 100 Unit/1 Ml Vial, 20 UNITS SUBQ BEDTIME, #1 EA 0 Refills 12/19/15 Insulin Lispro (HUMALOG) 100 Unit/1 Ml Cartridge, 0 SUBQ, #1 UNITS 0 Refills 06/28/15 Ferrous Sulfate (Ferrous Sulfate) 300 Mg/5 Ml Liqd, 7.5 ML GT BID, #473 ML 0 Refills 06/28/15 Magnesium Hydroxide* (MILK OF MAGNESIA*) 2,400 Mg/10 Ml Oral.susp, 30 ML ORAL DAILY PRN for Constipation, ML 06/28/15 Magnesium Oxide (MAGNESIUM OXIDE) 500 Mg Tablet, 500 MG GT DAILY, TAB 06/28/15 Thiamine Hcl (VITAMIN B1*) 100 Mg Tablet, 100 MG GT DAILY, TAB 03/27/15 Potassium Chloride (POTASSIUM CHLORIDE) 20 Meq Packet, 20 MEQ ORAL DAILY, #30 PKT 0 Refills 03/27/15 Heparin Sod (Porcine) (HEPARIN SODIUM*) 5 000/1 Ml Vial, 5000 UNITS SUBQ EVERY 12 HOURS, VIAL 03/27/15 Levetiracetam (Keppra) 100 Mg/1 Ml Liqd, 5 ML GT BID, #150 ML 0 Refills 12/22/14 Lorazepam (Lorazepam) 2 Mg/Ml Inj, 2 MG IM Q4H for seizures 12/22/14 Albuterol Sulfate* (ALBUTEROL SULFATE HHN*) 2.5 Mg/3 Ml Vial.neb, 3 ML INH EVERY 3 HOURS PRN for Shortness of Breath, EA 12/22/14 Discontinued Reported Medications Ondansetron* (ZOFRAN*) 4 Mg Tablet, 4 MG GT EVERY 4 HOURS PRN for Nausea & Vomiting, TAB 12/19/15 Multivits W-Min/Ferrous Gluc (CENTAMIN LIQUID) 9 Mg/15 Ml Liquid, 9 MG GT DAILY , ML 06/28/15 Ondansetron (Zofran) 4 Mg Tab, 4 MG IM EVERY 8 HOURS PRN for Nausea & Vomiting, TAB 12/22/14 Cholecalciferol (Vitamin D3)* (VITAMIN D*) 1,000 Unit Tablet, 5000 UNITS GT DAILY, TAB 12/22/14 Enoxaparin* (LOVENOX*) 40 Mg/0.4 Ml Inj, 40 MG SUBQ DAILY 12/22/14 Metronidazole* (FLAGYL*) 500 Mg Tablet, 500 MG GT EVERY 8 HOURS for pneumonia, TAB 12/22/14 Discontinued Scripts Ertapenem Sodium* (INVanz*) 1 Gm Vial.port, 1 GM IVPB Q24H, #6 VIAL Prov:Malu Lindo NP (Vanchtein) 03/02/15 Polyethylene Glycol* (MIRALAX*) 17 Gm Pack, 17 GM ORAL DAILYPRN PRN for Constipation, #30 PACK Prov:Malu Lindo NP (Vanchtein) 12/25/14 Med list reviewed/reconciled: Yes Allergies: Coded Allergies: NO KNOWN ALLERGIES (Unverified Allergy, Unknown, 01/27/15) NO KNOWN DRUG ALLERGIES (Unverified Allergy, Unknown, 06/28/15) Patient History Limited by: medical condition History Provided By: Medical Record PMH Narrative Past Medical History: asthma, COPD, dementia - vegetative state, other - Gtube Past Surgical History: none Pertinent Family History: none Social History: Denies: smoking, alcohol use, drug use Immunizations: UTD Reviewed Nursing Documentation: PMH: Agreed; PSxH: Agreed Nursing Documentation-PM Past Medical History Deferred: No Family Available Past Medical History: No History, Except For Hx Cardiac Problems: Yes Hx Hypertension: Yes Hx Asthma: Yes Hx COPD: Yes Hx Diabetes: Yes Hx Cancer: No Hx Gastrointestinal Problems: Yes - dysphagia Hx Neurological Problems: Yes - Persistent vegetative state Hx Cerebrovascular Accident: Yes Hx Seizures: Yes Hx Epilepsy: Yes Hx Paralysis: Yes Hx Memory Loss: Yes Hx Concentration Difficulty: Yes Hx Speech Problem: Yes - tracheostomy Hx Aphasia: Yes Hx Dysphasia: Yes Hx Weakness: Yes Review of Systems All Other Systems: limited Physical Exam Vital Signs Date Time Temp Pulse Resp B/P (MAP) Pulse Ox O2 Delivery O2 Flow Rate FiO2 08/07/17 12:20 82 19 28 08/07/17 12:26 96.9 126/74 100 Room Air 97.0 Sp02 EP Interpretation: reviewed, normal Labs Laboratory Tests Test 08/07/17 14:12 08/08/17 04:00 Lactic Acid Level 2.90 mmol/L (0.66-2.22) H White Blood Count 9.6 K/UL (4.8-10.8) Red Blood Count 3.13 M/UL (4.70-6.10) L Hemoglobin 9.3 G/DL (14.2-18.0) L Hematocrit 28.0 % (42.0-52.0) L Mean Corpuscular Volume 89 FL (80-99) Mean Corpuscular Hemoglobin 29.6 PG (27.0-31.0) Mean Corpuscular Hemoglobin Concent 33.2 G/DL (32.0-36.0) Red Cell Distribution Width 16.1 % (11.6-14.8) H Platelet Count 324 K/UL (150-450) Mean Platelet Volume 9.5 FL (6.5-10.1) Neutrophils (%) (Auto) 63.7 % (45.0-75.0) Lymphocytes (%) (Auto) 26.4 % (20.0-45.0) Monocytes (%) (Auto) 6.5 % (1.0-10.0) Eosinophils (%) (Auto) 2.6 % (0.0-3.0) Basophils (%) (Auto) 0.8 % (0.0-2.0) Sodium Level 139 MMOL/L (136-145) Potassium Level 3.9 MMOL/L (3.5-5.1) Chloride Level 103 MMOL/L (98-107) Carbon Dioxide Level 25 MMOL/L (21-32) Anion Gap 11 mmol/L (5-15) Blood Urea Nitrogen 12 mg/dL (7-18) Creatinine 0.5 MG/DL (0.55-1.30) L Estimat Glomerular Filtration Rate > 60 mL/min (>60) Glucose Level 165 MG/DL (74-106) H Hemoglobin A1c 6.9 % (4.3-6.0) H Calcium Level 8.8 MG/DL (8.5-10.1) Troponin I 0.000 ng/mL (0.000-0.056) Amylase Level 26 U/L (25-115) Lipase 65 U/L (73-393) L General Appearance: no apparent distress Head: normocephalic EENT: PERRL/EOMI, normal ENT inspection Neck: supple, tracheotomy Respiratory: normal breath sounds, no respiratory distress, other - mech to trach Cardiovascular: normal rate Gastrointestinal: normal inspection, non tender, soft, normal bowel sounds, non -distended, gt - c/d/i Rectal: deferred Genitourinary: deferred Neurologic: alert Psychiatric: normal inspection, judgement/insight normal, memory normal Skin: normal inspection, normal color, no rash, warm/dry, palpation normal, well hydrated Lymphatic: normal inspection, no adenopathy Current Medications Current Medications Medications (Trade) Dose Ordered Sig/Tony Route PRN Reason Start Time Stop Time Status Last Admin Dose Admin Acetaminophen (Tylenol Peds) 160 mg Q4H PRN ORAL Temp > 100 08/07/17 18:30 09/06/17 18:29 Albuterol Sulfate (Proventil) 2.5 mg Q3H PRN IN-LINE Shortness of Breath 08/07/17 18:30 08/12/17 18:29 Albuterol/ Ipratropium (Albuterol/ Ipratropium) 3 ml Q4H PRN HHN Persistent Shortness of Breath 08/07/17 18:30 08/12/17 18:29 Dextrose (Dextrose 50%) STAT PRN IV Hypoglycemia 08/07/17 18:30 09/06/17 18:29 Dextrose/Sodium Chloride 1,000 ml @ 100 mls/hr Q10H IV 08/07/17 20:30 09/06/17 20:29 08/07/17 22:39 Heparin Sodium (Porcine) (Heparin 5000 units/ml) 5,000 units EVERY 12 HOURS SUBQ 08/07/17 21:00 09/06/17 20:59 08/07/17 22:55 Insulin Aspart (NovoLOG) EVERY 6 HOURS SUBQ 08/08/17 00:00 09/07/17 00:00 08/08/17 05:47 Levetiracetam (Keppra) 500 mg Q12HR GT 08/07/17 21:00 09/06/17 20:59 08/07/17 22:52 Magnesium Hydroxide (Mom) 30 ml DAILYPRN PRN ORAL Constipation 08/07/17 18:30 09/06/17 18:29 Metformin HCl (Glucophage) 1,000 mg Q12HR GT 08/07/17 21:00 09/06/17 20:59 08/07/17 22:51 Morphine Sulfate (Morphine Sulfate) 2 mg Q8H PRN IVP Moderate to Severe Pain 08/07/17 18:30 08/14/17 18:29 Pantoprazole (Protonix) 40 mg EVERY 12 HOURS IVP 08/07/17 21:00 09/06/17 20:59 08/08/17 10:02 Piperacillin Sod/ Tazobactam Sod 3.375 gm/Dextrose 110 ml @ 27.5 mls/hr EVERY 8 HOURS IVPB 08/07/17 22:00 08/14/17 21:59 08/08/17 05:45 Polyethylene Glycol (Miralax) 17 gm DAILYPRN PRN GT Constipation 08/07/17 18:30 09/06/17 18:29 Thiamine HCl (Vitamin B1) 100 mg DAILY GT 08/08/17 09:00 09/07/17 08:59 Vitamin D (Vitamin D) 400 intlu DAILY ORAL 08/08/17 09:00 09/07/17 08:59 GI: Plan Problems: (1) snf resident (2) Ventilator dependent (3) Abdominal distention (4) Iron deficiency anemia (5) Ileus (6) Colon distention Plan CT AP reviewed >> possible ileus, borderline colonic distention, no obstructive pathology ileus management >> maintain NPO + IVFs bowel rest, await return of function bowel/colonic decompression >> GT to LIS, will consider rectal tube serial imaging studies prn >> 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 Mendoza. Thank you for this patient referral, we will follow. Lo Olmos N.P. Aug 08, 2017 13:33
[2017-08-08 16:00] VITALS: BP 111/73
--- NOTE | 2017-08-08 16:14 | Cardiology Report ---
APPROVED REPORT EKG Measurement Heart [id number] Normal sinus rhythm Normal ECG
--- NOTE | 2017-08-08 17:45 | History and Physical Report ---
DATE OF ADMISSION: 08/07/2017 SOURCE OF INFORMATION: EMR. HISTORY OF PRESENT ILLNESS: The patient is a misfortunate pleasant 46-year-old white male. He is at baseline having percutaneous endoscopic gastrostomy and trach. He is not communicative verbally. This is a limited evaluation based on the documentations from the ER attending. The patient has been brought from the assisted home secondary to abdominal distention. Reportedly, the patient had self-extracted the cholecystectomy tube that was recently placed in the abdomen. The patient is on ventilator. At the time of evaluation, there is no sign of the distress. The patient is comfortable. However, this is significantly limited medical evaluation. PAST MEDICAL HISTORY: Hypertension, asthma, chronic obstructive pulmonary disease, diabetes, dysphagia, seizure disorder, quadriplegia, and vent dependent respiratory failure. ALLERGIES: NKDA. SOCIAL HISTORY: Unobtainable. REVIEW OF SYSTEMS: Limited medical evaluation as above. PHYSICAL EXAMINATION: VITAL SIGNS: Shows a blood pressure of 120/70, temperature 98.2, pulse oximetry 97% on room air, pulse rate 80 to 85, and pulse oximetry 100% on the mechanical vent. HEAD AND NECK: Limited evaluation. The patient is on trach. CHEST: Diffuse bronchial breathing sounds. No crackles. No wheezing. HEART: S1 and S2. Regular rate and rhythm. No S3. No S4. ABDOMEN: Soft. The percutaneous endoscopic gastrostomy tube is in place. Limited evaluation. NEUROLOGY: The patient is in no distress. The patient is not following commands. The patient is not verbally communicative. Contracted quadriplegic extremities all x4. LABORATORY DATA: Labs dated 08/07/2017 shows WBC 13.8, hemoglobin 11.7, and platelet of 311,000. Sodium 138, potassium 4.4, BUN 16, creatinine 0.7, and glucose 106. ALT 93. Total protein 8.7. IMAGING: CT scan of abdomen and pelvis obtained on 08/07/2017 shows no acute active pathology. Borderline findings reported as detailed in the official report. ASSESSMENT: 1. Abdominal distention status post self extractions of cholecystectomy tube. 2. Systemic inflammatory response syndrome. 3. Healthcare-associated urinary tract infection. 4. Diabetes type 2. 5. Seizure disorder. 6. Gastrointestinal and deep venous thrombosis prophylaxis. PLAN OF CARE: Continue with the empiric antibiotic regimen. Surgery, Infectious Disease, and Pulmonary have been notified. Continue with the management in [place]. Honey Granda M.D. DR: FERNIE JOB#: [id number] CC:
[2017-08-08 20:00] VITALS: BP 132/76
[2017-08-09] VITALS: BP 102/76
[2017-08-09] MEDS: D5 1/2NS 1,000 ML IV SCH (03:47)
[2017-08-09 04:00] VITALS: BP 102/76
[2017-08-09 04:57] LABS: BASOPHILS % (AUTO) 0.8 % (0.0-2.0); EOSINOPHILS % (AUTO) 2.7 % (0.0-3.0); HEMATOCRIT 31.9 % (42.0-52.0); HEMOGLOBIN 10.3 G/DL (14.2-18.0); LYMPHOCYTES % (AUTO) 24.5 % (20.0-45.0); MEAN CORPUSCULAR VOLUME 88 FL (80-99); MONOCYTES % (AUTO) 7.8 % (1.0-10.0); NEUTROPHILS % (AUTO) 64.2 % (45.0-75.0); PLATELET COUNT 307 K/UL (150-450); RED BLOOD COUNT 3.64 M/UL (4.70-6.10); RED CELL DISTRIBUTION WIDTH 15.5 % (11.6-14.8); WHITE BLOOD COUNT 7.9 K/UL (4.8-10.8)
[2017-08-09 05:13] LABS: ANION GAP 11 mmol/L (5-15); BLOOD UREA NITROGEN 10 mg/dL (7-18); CALCIUM 9.6 MG/DL (8.5-10.1); CARBON DIOXIDE 25 MMOL/L (21-32); CHLORIDE 101 MMOL/L (98-107); CREATININE 0.7 MG/DL (0.55-1.30); FERRITIN 70 NG/ML (8-388); POTASSIUM 3.4 MMOL/L (3.5-5.1); SODIUM 137 MMOL/L (136-145)
[2017-08-09 05:46] LABS: % IRON SATURATION 16 % (15-50); IRON 45 ug/dL (50-175); TOTAL IRON BINDING CAPACITY 280 ug/dL (250-450)
[2017-08-09] MEDS: Piperacillin/Tazobactam 3.375 GM in D5W 110 ML IVPB SCH ×3 (05:49→22:18)
[2017-08-09] MEDS: NovoLOG Insulin Flexpen SUBQ SCH ×4 (06:21→17:40)
[2017-08-09 07:52] VITALS: BP 108/76
[2017-08-09] MEDS: metFORMIN 500mg tab GT SCH ×2 (08:58→21:00)
[2017-08-09] MEDS: Thiamine 100mg tab GT SCH (08:59)
[2017-08-09] MEDS: levETIRAcetam 500mg/5ml Liquid GT SCH ×2 (08:59→21:03)
[2017-08-09] MEDS: Pantoprazole Inj IVP SCH (08:59)
[2017-08-09] MEDS: Vitamin D 400 INTLU TAB ORAL SCH (08:59)
[2017-08-09] MEDS: Heparin 5000 units/ml inj SUBQ SCH ×2 (09:03→21:06)
--- NOTE | 2017-08-09 11:09 | GI Progress Note ---
Assessment/Plan Problems: (1) Colon distention ICD Codes: K63.89 - Other specified diseases of intestine SNOMED: 687051949 (2) Abdominal distention ICD Codes: R14.0 - Abdominal distension (gaseous) SNOMED: 03088657 (3) Ventilator dependent ICD Codes: Z99.11 - Dependence on respirator [ventilator] status SNOMED: 445559383 (4) Iron deficiency anemia ICD Codes: D50.9 - Iron deficiency anemia, unspecified SNOMED: 69139905 (5) Ileus ICD Codes: K56.7 - Ileus, unspecified SNOMED: 197170947 Status: progressing Status Narrative Discussed with Dr. Mendoza. Assessment/Plan CT AP reviewed >> possible ileus, borderline colonic distention, no obstructive pathology. abdominal distention greatly improved anemia work up reviewed ileus management >> maintain NPO + IVFs bowel rest, await return of function bowel/colonic decompression >> GT to LIS, will consider rectal tube serial imaging studies prn >> assurance specialist image tomorrow OB stool r/o GI bleed monitor H&H, prn transfusions bowel regime ppi fu labs Subjective Subjective limited Objective Last 24 Hour Vital Signs Date Time Temp Pulse Resp B/P (MAP) Pulse Ox O2 Delivery O2 Flow Rate FiO2 08/09/17 10:49 60 12 28 08/09/17 08:40 60 12 28 08/09/17 08:00 64 08/09/17 08:00 28 08/09/17 07:52 97.2 69 19 108/76 100 Mechanical Ventilator 28 97.2 08/09/17 06:40 74 13 28 08/09/17 05:02 58 12 28 08/09/17 04:00 97.0 58 12 102/76 100 Mechanical Ventilator 28 97.0 08/09/17 04:00 28 08/09/17 03:31 54 08/09/17 03:18 56 12 28 08/09/17 01:09 64 12 28 08/09/17 00:00 28 08/09/17 00:00 97.9 66 12 102/76 100 Mechanical Ventilator 28 97.9 08/08/17 23:30 70 08/08/17 22:56 76 12 28 08/08/17 20:50 80 13 28 08/08/17 20:00 28 3/28/18 20:00 97.7 76 12 132/76 100 Mechanical Ventilator 28 97.7 08/08/17 20:00 83 08/08/17 18:57 83 15 28 08/08/17 17:23 79 12 28 08/08/17 16:00 98.5 79 18 111/73 100 Mechanical Ventilator 28 98.5 08/08/17 16:00 79 08/08/17 16:00 28 08/08/17 15:21 82 12 28 08/08/17 13:29 68 12 28 08/08/17 12:00 28 08/08/17 12:00 98.6 70 18 108/72 100 Mechanical Ventilator 28 98.6 08/08/17 12:00 69 Intake and Output 08/08/17 08/09/17 19:00 07:00 Intake Total 437.5 ml 927.5 ml Output Total 250 ml Balance 437.5 ml 677.5 ml Intake IV Total 437.5 ml 927.5 ml Output Urine Total 250 ml # Voids 2 # Bowel Movements 5 Laboratory Tests Test 08/09/17 03:30 White Blood Count 7.9 K/UL (4.8-10.8) Red Blood Count 3.64 M/UL (4.70-6.10) L Hemoglobin 10.3 G/DL (14.2-18.0) L Hematocrit 31.9 % (42.0-52.0) L Mean Corpuscular Volume 88 FL (80-99) Mean Corpuscular Hemoglobin 28.3 PG (27.0-31.0) Mean Corpuscular Hemoglobin Concent 32.3 G/DL (32.0-36.0) Red Cell Distribution Width 15.5 % (11.6-14.8) H Platelet Count 307 K/UL (150-450) Mean Platelet Volume 10.0 FL (6.5-10.1) Neutrophils (%) (Auto) 64.2 % (45.0-75.0) Lymphocytes (%) (Auto) 24.5 % (20.0-45.0) Monocytes (%) (Auto) 7.8 % (1.0-10.0) Eosinophils (%) (Auto) 2.7 % (0.0-3.0) Basophils (%) (Auto) 0.8 % (0.0-2.0) Reticulocyte Count 2.7 % (0.0-2.0) H Prothrombin Time 10.8 SEC (9.30-11.50) Prothromb Time International Ratio 1.0 (0.9-1.1) Activated Partial Thromboplast Time 27 SEC (23-33) Sodium Level 137 MMOL/L (136-145) Potassium Level 3.4 MMOL/L (3.5-5.1) L Chloride Level 101 MMOL/L (98-107) Carbon Dioxide Level 25 MMOL/L (21-32) Anion Gap 11 mmol/L (5-15) Blood Urea Nitrogen 10 mg/dL (7-18) Creatinine 0.7 MG/DL (0.55-1.30) Estimat Glomerular Filtration Rate > 60 mL/min (>60) Glucose Level 190 MG/DL (74-106) H Calcium Level 9.6 MG/DL (8.5-10.1) Iron Level 45 ug/dL (50-175) L Total Iron Binding Capacity 280 ug/dL (250-450) Percent Iron Saturation 16 % (15-50) Unsaturated Iron Binding 235 ug/dL (112-346) Ferritin 70 NG/ML (8-388) Vitamin B12 Level 472 PG/ML (193-986) Folate 19.8 NG/ML (8.6-58.9) Thyroid Stimulating Hormone (TSH) 4.727 uiU/mL (0.358-3.740) Free Thyroxine 1.20 NG/DL (0.76-1.46) Height (Feet): 5 Height (Inches): 10.00 Weight (Pounds): 240 General Appearance: WD/WN, no apparent distress, alert Cardiovascular: normal rate Respiratory/Chest: normal breath sounds, no respiratory distress, other - trach to vent Abdominal Exam: normal bowel sounds, non tender, soft, GT site - c/d/i Extremities: normal range of motion, non-tender Objective abdominal distention greatly improved Lo Olmos N.P. Aug 09, 2017 11:09
--- NOTE | 2017-08-09 11:38 | Diagnostic Imaging Report ---
Indication: Abdominal distention Technique: Supine view of the abdomen Comparison: CT scan dated 08/07/2017 Findings: Exam is somewhat limited by body habitus, portable technique. The colon is diffusely gas filled, frankly distended in the mid transverse colon, upper limits of normal caliber elsewhere. Colon gas pattern appears similar to the previous exam. The amount of small bowel gas appears decreased. No unusual masses or calcifications. Impression: Diffusely is distended colon, appearing similar to findings on management coordinator image of CT scan of 2 days earlier. At that time, the colon distention was thought to be functional in nature.
[2017-08-09 12:00] VITALS: BP 114/79
[2017-08-09] MEDS: Metoclopramide 10mg/10ml Liq GT SCH ×2 (12:19→17:36)
[2017-08-09] MEDS: D5 1/2NS w/KCl 20mEq 1,000 ML IV SCH ×2 (12:28→23:05)
--- NOTE | 2017-08-09 14:26 | Infectious Diseases Prog Note ---
Assessment/Plan Assessment/Plan Abx: Zosyn 08/07- Assessment: Abd distention after removal of Cholecystostomy tube- 2ry to ileus. ? mild colitis/enteritis- LFts normal no biliary distentioin on CT -CT abd/p: No evidence of biloma or other complications relatable to stated clinical history of recent cholecystostomy removal. Borderline distended gas- filled colon, prominent colon gas extending to the level of the mid to distal distal descending colon, without evidence of obstructive lesion. Probably functional in nature. There is questionably some focal wall thickening and pericolonic infiltration involving the proximal ascending colon. This as well as proximal and distal fluid could indicate mild colitis changes. Prominent gas and fluid-filled small bowel, no evidence of obstructive pathology. Findings may represent ileus or mild enteritis changes as well. Mild hepatomegaly. Mild bilateral perinephric fat stranding, unchanged, probably chronic. Nonobstructive bilateral intrarenal calculi. Waddell catheter. Breast ostomy. Sigmoid diverticulosis. No evidence of diverticulitis. Bilateral basilar pulmonary atelectasis. Cardiomegaly. Borderline hepatomegaly Leukocytosis- 2ry to above- resolved -afebrile -u/a wbc 30-40, nit -, leuk +2 1/4 Gram positive bacteremia- real vs contaminant- suspect contaminant,await ID and repeat Bcx chronic cholecystitis s/p cholecystostomy tube asthma/COPD HTN Dm2 Dementia CVA s/p vegetative state chronic resp failure vent/trach dependant dysphagia s/p G-tube seizure disorder SNF resident Plan: -Continue empiric ZOsyn #3 for now and add IV Vancomcyin pending IG GPC clusters and repeat bcx -2 sets of Bcx -if s. aureus, will get 2 d echo -GI f/u-?need to replace cholecystostomy tube -f/u cx -Monitor CBC, BMP, temperatures -trach/peg care -aspiration precautions Thank you for this consultation. Will continue to follow along with you. Discussed with RN, Subjective Allergies: Coded Allergies: NO KNOWN ALLERGIES (Unverified Allergy, Unknown, 01/27/15) NO KNOWN DRUG ALLERGIES (Unverified Allergy, Unknown, 06/28/15) Subjective afebrile no leukocytosis r Bcx 1/4 GPC clusters Objective Vital Signs Last 24 Hour Vital Signs Date Time Temp Pulse Resp B/P (MAP) Pulse Ox O2 Delivery O2 Flow Rate FiO2 08/09/17 13:07 69 12 28 08/09/17 12:00 68 08/09/17 12:00 97.9 63 18 114/79 100 Mechanical Ventilator 28 97.9 08/09/17 12:00 28 08/09/17 10:49 60 12 28 08/09/17 08:40 60 12 28 08/09/17 08:00 64 08/09/17 08:00 28 08/09/17 07:52 97.2 69 19 108/76 100 Mechanical Ventilator 28 97.2 08/09/17 06:40 74 13 28 08/09/17 05:02 58 12 28 08/09/17 04:00 97.0 58 12 102/76 100 Mechanical Ventilator 28 97.0 08/09/17 04:00 28 08/09/17 03:31 54 08/09/17 03:18 56 12 28 08/09/17 01:09 64 12 28 08/09/17 00:00 28 08/09/17 00:00 97.9 66 12 102/76 100 Mechanical Ventilator 28 97.9 08/08/17 23:30 70 08/08/17 22:56 76 12 28 08/08/17 20:50 80 13 28 08/08/17 20:00 28 08/08/17 20:00 97.7 76 12 132/76 100 Mechanical Ventilator 28 97.7 08/08/17 20:00 83 08/08/17 18:57 83 15 28 08/08/17 17:23 79 12 28 08/08/17 16:00 98.5 79 18 111/73 100 Mechanical Ventilator 28 98.5 08/08/17 16:00 79 08/08/17 16:00 28 08/08/17 15:21 82 12 28 Height (Feet): 5 Height (Inches): 10.00 Weight (Pounds): 240 Objective General Appearance: no apparent distress, other - encephalopathy Head: normocephalic Eyes: bilateral eye normal inspection, bilateral eye PERRL ENT: normal ENT inspection Neck: tracheotomy Respiratory: chest non-tender, lungs clear, normal breath sounds, speaking full sentences Cardiovascular regular rate, rhythm, no edema Gastrointestinal: distended - Gtube in place. missing cholecystectomy tube Genitourinary: no CVA tenderness Musculoskeletal: normal inspection Skin: normal inspection Microbiology Date/Time Source Procedure Growth Status 08/07/17 12:45 Blood Blood Culture - Preliminary NO GROWTH AFTER 24 HOURS Resulted 08/07/17 12:40 Blood Blood Culture - Preliminary Resulted 08/07/17 12:40 Urine,Clean Catch Urine Culture - Preliminary Resulted 08/08/17 23:45 Sacral Wound Gram Stain - Final Resulted 08/08/17 23:45 Sacral Wound Wound Culture Pending Resulted Laboratory Tests Test 08/09/17 03:30 White Blood Count 7.9 K/UL (4.8-10.8) Red Blood Count 3.64 M/UL (4.70-6.10) L Hemoglobin 10.3 G/DL (14.2-18.0) L Hematocrit 31.9 % (42.0-52.0) L Mean Corpuscular Volume 88 FL (80-99) Mean Corpuscular Hemoglobin 28.3 PG (27.0-31.0) Mean Corpuscular Hemoglobin Concent 32.3 G/DL (32.0-36.0) Red Cell Distribution Width 15.5 % (11.6-14.8) H Platelet Count 307 K/UL (150-450) Mean Platelet Volume 10.0 FL (6.5-10.1) Neutrophils (%) (Auto) 64.2 % (45.0-75.0) Lymphocytes (%) (Auto) 24.5 % (20.0-45.0) Monocytes (%) (Auto) 7.8 % (1.0-10.0) Eosinophils (%) (Auto) 2.7 % (0.0-3.0) Basophils (%) (Auto) 0.8 % (0.0-2.0) Reticulocyte Count 2.7 % (0.0-2.0) H Prothrombin Time 10.8 SEC (9.30-11.50) Prothromb Time International Ratio 1.0 (0.9-1.1) Activated Partial Thromboplast Time 27 SEC (23-33) Sodium Level 137 MMOL/L (136-145) Potassium Level 3.4 MMOL/L (3.5-5.1) L Chloride Level 101 MMOL/L (98-107) Carbon Dioxide Level 25 MMOL/L (21-32) Anion Gap 11 mmol/L (5-15) Blood Urea Nitrogen 10 mg/dL (7-18) Creatinine 0.7 MG/DL (0.55-1.30) Estimat Glomerular Filtration Rate > 60 mL/min (>60) Glucose Level 190 MG/DL (74-106) H Calcium Level 9.6 MG/DL (8.5-10.1) Iron Level 45 ug/dL (50-175) L Total Iron Binding Capacity 280 ug/dL (250-450) Percent Iron Saturation 16 % (15-50) Unsaturated Iron Binding 235 ug/dL (112-346) Ferritin 70 NG/ML (8-388) Vitamin B12 Level 472 PG/ML (193-986) Folate 19.8 NG/ML (8.6-58.9) Thyroid Stimulating Hormone (TSH) 4.727 uiU/mL (0.358-3.740) Free Thyroxine 1.20 NG/DL (0.76-1.46) Current Medications Medications (Trade) Dose Ordered Sig/Tony Route PRN Reason Start Time Stop Time Status Last Admin Dose Admin Acetaminophen (Tylenol Peds) 160 mg Q4H PRN ORAL Temp > 100 08/07/17 18:30 09/06/17 18:29 Albuterol Sulfate (Proventil) 2.5 mg Q3H PRN IN-LINE Shortness of Breath 08/07/17 18:30 08/12/17 18:29 Albuterol/ Ipratropium (Albuterol/ Ipratropium) 3 ml Q4H PRN HHN Persistent Shortness of Breath 08/07/17 18:30 08/12/17 18:29 Dextrose (Dextrose 50%) STAT PRN IV Hypoglycemia 08/07/17 18:30 09/06/17 18:29 Dextrose/ Electrolytes 1,000 ml @ 100 mls/hr Q10H IV 08/09/17 12:30 09/08/17 12:29 08/09/17 12:28 Heparin Sodium (Porcine) (Heparin 5000 units/ml) 5,000 units EVERY 12 HOURS SUBQ 08/07/17 21:00 09/06/17 20:59 08/09/17 09:03 Insulin Aspart (NovoLOG) EVERY 6 HOURS SUBQ 08/08/17 00:00 09/07/17 00:00 08/09/17 12:05 Lansoprazole (Prevacid) 30 mg DAILY GT 08/10/17 09:00 09/09/17 08:59 Levetiracetam (Keppra) 500 mg Q12HR GT 08/07/17 21:00 09/06/17 20:59 08/09/17 08:59 Magnesium Hydroxide (Mom) 30 ml DAILYPRN PRN ORAL Constipation 08/07/17 18:30 09/06/17 18:29 Metformin HCl (Glucophage) 1,000 mg Q12HR GT 08/07/17 21:00 09/06/17 20:59 08/08/17 20:57 Metoclopramide HCl (Reglan) 5 mg EVERY 6 HOURS GT 08/09/17 12:00 09/08/17 11:59 08/09/17 12:19 Morphine Sulfate (Morphine Sulfate) 2 mg Q8H PRN IVP Moderate to Severe Pain 08/07/17 18:30 08/14/17 18:29 Piperacillin Sod/ Tazobactam Sod 3.375 gm/Dextrose 110 ml @ 27.5 mls/hr EVERY 8 HOURS IVPB 08/07/17 22:00 08/14/17 21:59 08/09/17 05:49 Polyethylene Glycol (Miralax) 17 gm DAILYPRN PRN GT Constipation 08/07/17 18:30 09/06/17 18:29 Thiamine HCl (Vitamin B1) 100 mg DAILY GT 08/08/17 09:00 09/07/17 08:59 08/09/17 08:59 Vitamin D (Vitamin D) 400 intlu DAILY ORAL 08/08/17 09:00 09/07/17 08:59 08/09/17 08:59 Laura Gimenez M.D. Aug 09, 2017 14:26
--- NOTE | 2017-08-09 15:59 | Consultation ---
History of Present Illness General Date patient seen: Aug 09, 2017 Chief Complaint: Gastrointestinal Illness Referring physician: ALLISON ZAMUDIO Reason for Consultation: ABDOMINAL DISTENTION Present Illness HPI late entry patient admitted for abdominal distention after pulling cholecystostomy tube while in nursing facility. believed to have worsening distention after pulling tube. was taken [place] [facility] [place] and care. upon admission surgery called to evaluate given cholecystostomy tube removed by patient and abdominal distention. patient seen, chart reviewed, patient examined. Allergies: Coded Allergies: NO KNOWN ALLERGIES (Unverified Allergy, Unknown, 01/27/15) NO KNOWN DRUG ALLERGIES (Unverified Allergy, Unknown, 06/28/15) Medication History Scheduled Cefepime Hcl/Dextrose, Iso-Osm (Cefepime 2 Gm Injection), 2 GM IV EVERY 8 HOURS Cranberry Extract (Cranberry Juice Powder), 425 MG GT DAILY, (Reported) Dextran 70/Hypromellose (Artificial Tears Eye Drops*), 1 DROP BOTH EYES EVERY 6 HOURS, (Reported) Esomeprazole Magnesium (Nexium), 40 MG GT BID, (Reported) Ferrous Sulfate (Ferrous Sulfate), 7.5 ML GT BID, (Reported) Heparin Sod (Porcine) (Heparin Sodium*), 5,000 UNITS SUBQ EVERY 12 HOURS, ( Reported) Insulin Glargine (Lantus), 20 UNITS SUBQ BEDTIME, (Reported) Lactulose (Lactulose*), 30 ML ORAL BID, (Reported) Levetiracetam (Keppra), 5 ML GT BID, (Reported) Lorazepam (Lorazepam), 2 MG IM Q4H, (Reported) Magnesium Oxide (Magnesium Oxide), 500 MG GT DAILY, (Reported) Metformin Hcl* (Metformin Hcl*), 1,000 MG GT BID, (Reported) Multivit-Min/Iron Fum/Folic AC (Dtuzc-Waleput-Xjfcmztn Tablet), 1 EACH GT DAILY, (Reported) Piperacillin Sodium/Tazobactam (Zosyn 3.375 Gram Vial), 3.375 GM IV EVERY 6 HOURS, (Reported) Potassium Chloride (Potassium Chloride), 20 MEQ ORAL DAILY, (Reported) Thiamine Hcl (Vitamin B1*), 100 MG GT DAILY, (Reported) Vit C/Ascorbate Ca/Ascorb Sod (Vitamin C 500 Mg/15 Ml Liquid), 500 MG GT DAILY, (Reported) Vitamin D (Vitamin D3), 5,000 UNITS GT DAILY, (Reported) Scheduled PRN Acetaminophen 160MG/5ML* (Acetaminophen*), 5 ML ORAL Q4HR PRN for temp, ( Reported) Albuterol Sulfate* (Albuterol Sulfate Hhn*), 3 ML INH EVERY 3 HOURS PRN for Shortness of Breath, (Reported) Ipratropium/Albuterol Sulfate (DuoNeb 0.5-3(2.5)mg/3ml), 3 ML HHN EVERY 4 HOURS PRN for Shortness of Breath Magnesium Hydroxide* (Milk Of Magnesia*), 30 ML ORAL DAILY PRN for Constipation, (Reported) Ondansetron (Zofran), 4 MG ORAL Q6H PRN for Nausea & Vomiting, (Reported) Polyethylene Glycol 3350* (Miralax*), 17 GM GT DAILY PRN for Constipation, ( Reported) Miscellaneous Medications Insulin Lispro (Humalog), 0 SUBQ, (Reported) Discontinued Medications Cholecalciferol (Vitamin D3)* (Vitamin D*), 5,000 UNITS GT DAILY, (Reported) Discontinued Reason: Therapy completed Enoxaparin* (Lovenox*), 40 MG SUBQ DAILY, (Reported) Discontinued Reason: Therapy completed Ertapenem Sodium* (INVanz*), 1 GM IVPB Q24H Discontinued Reason: Therapy completed Metronidazole* (Flagyl*), 500 MG GT EVERY 8 HOURS, (Reported) Discontinued Reason: Therapy completed Multivits W-Min/Ferrous Gluc (Centamin Liquid), 9 MG GT DAILY, (Reported) Discontinued Reason: Therapy completed Ondansetron (Zofran), 4 MG IM EVERY 8 HOURS PRN for Nausea & Vomiting, (Reported ) Discontinued Reason: Therapy completed Ondansetron* (Zofran*), 4 MG GT EVERY 4 HOURS PRN for Nausea & Vomiting, ( Reported) Discontinued Reason: Therapy completed Polyethylene Glycol* (Miralax*), 17 GM ORAL DAILYPRN PRN for Constipation Discontinued Reason: Therapy completed Patient History Limited by: medical condition History Provided By: Medical Record, PMD Healthcare decision maker Bronwyn Taylor Resuscitation status Full Code Advanced Directive on File No Past Medical/Surgical History Past Medical/Surgical History: (1) Hematuria (2) Gastritis (3) Tachycardia (4) Sepsis (5) Dyspnea (6) Esophagitis (7) Gastric ulcer (8) Acute blood loss anemia (9) ATN (acute tubular necrosis) (10) Sepsis (11) Fever (12) Sepsis (13) Pneumonia (14) Acute and chronic respiratory failure (15) Status post tracheostomy (16) Wound of sacral region (17) Chronic complete quadriplegia (18) Iron deficiency anemia (19) Ileus (20) Colon distention (21) Abdominal distention (22) Chronic vegetative state (23) Ventilator dependent (24) UTI (urinary tract infection) Review of Systems ROS Narrative cannot obtain given patients medical condition Physical Exam General Appearance: no apparent distress Lines, tubes and drains: PICC HEENT: normocephalic Neck: normal alignment Respiratory/Chest: normal breath sounds, no respiratory distress, no accessory muscle use, on vent Cardiovascular/Chest: normal peripheral pulses Abdomen: non tender, soft, distended, feeding tube, other - prior choletube site clean Extremities: normal inspection Skin Exam: normal pigmentation Neurologic: unresponsiveness Last 24 Hour Vital Signs Date Time Temp Pulse Resp B/P (MAP) Pulse Ox O2 Delivery O2 Flow Rate FiO2 08/09/17 13:07 69 12 28 08/09/17 12:00 68 08/09/17 12:00 97.9 63 18 114/79 100 Mechanical Ventilator 28 97.9 08/09/17 12:00 28 08/09/17 10:49 60 12 28 08/09/17 08:40 60 12 08/09/17 08:00 64 08/09/17 08:00 28 08/09/17 07:52 97.2 69 19 108/76 100 Mechanical Ventilator 28 97.2 08/09/17 06:40 74 13 28 08/09/17 05:02 58 12 28 08/09/17 04:00 97.0 58 12 102/76 100 Mechanical Ventilator 28 97.0 08/09/17 04:00 28 08/09/17 03:31 54 08/09/17 03:18 56 12 28 08/09/17 01:09 64 12 28 08/09/17 00:00 28 08/09/17 00:00 97.9 66 12 102/76 100 Mechanical Ventilator 28 97.9 08/08/17 23:30 70 08/08/17 22:56 76 12 28 08/08/17 20:50 80 13 28 08/08/17 20:00 28 08/08/17 20:00 97.7 76 12 132/76 100 Mechanical Ventilator 28 97.7 08/08/17 20:00 83 08/08/17 18:57 83 15 28 08/08/17 17:23 79 12 28 08/08/17 16:00 98.5 79 18 111/73 100 Mechanical Ventilator 28 98.5 08/08/17 16:00 79 08/08/17 16:00 28 Intake and Output 08/08/17 08/09/17 19:00 07:00 Intake Total 437.5 ml 927.5 ml Output Total 250 ml Balance 437.5 ml 677.5 ml Intake IV Total 437.5 ml 927.5 ml Output Urine Total 250 ml # Voids 2 # Bowel Movements 5 Laboratory Tests Test 08/09/17 03:30 White Blood Count 7.9 K/UL (4.8-10.8) Red Blood Count 3.64 M/UL (4.70-6.10) L Hemoglobin 10.3 G/DL (14.2-18.0) L Hematocrit 31.9 % (42.0-52.0) L Mean Corpuscular Volume 88 FL (80-99) Mean Corpuscular Hemoglobin 28.3 PG (27.0-31.0) Mean Corpuscular Hemoglobin Concent 32.3 G/DL (32.0-36.0) Red Cell Distribution Width 15.5 % (11.6-14.8) H Platelet Count 307 K/UL (150-450) Mean Platelet Volume 10.0 FL (6.5-10.1) Neutrophils (%) (Auto) 64.2 % (45.0-75.0) Lymphocytes (%) (Auto) 24.5 % (20.0-45.0) Monocytes (%) (Auto) 7.8 % (1.0-10.0) Eosinophils (%) (Auto) 2.7 % (0.0-3.0) Basophils (%) (Auto) 0.8 % (0.0-2.0) Reticulocyte Count 2.7 % (0.0-2.0) H Prothrombin Time 10.8 SEC (9.30-11.50) Prothromb Time International Ratio 1.0 (0.9-1.1) Activated Partial Thromboplast Time 27 SEC (23-33) Sodium Level 137 MMOL/L (136-145) Potassium Level 3.4 MMOL/L (3.5-5.1) L Chloride Level 101 MMOL/L (98-107) Carbon Dioxide Level 25 MMOL/L (21-32) Anion Gap 11 mmol/L (5-15) Blood Urea Nitrogen 10 mg/dL (7-18) Creatinine 0.7 MG/DL (0.55-1.30) Estimat Glomerular Filtration Rate > 60 mL/min (>60) Glucose Level 190 MG/DL (74-106) H Calcium Level 9.6 MG/DL (8.5-10.1) Iron Level 45 ug/dL (50-175) L Total Iron Binding Capacity 280 ug/dL (250-450) Percent Iron Saturation 16 % (15-50) Unsaturated Iron Binding 235 ug/dL (112-346) Ferritin 70 NG/ML (8-388) Vitamin B12 Level 472 PG/ML (193-986) Folate 19.8 NG/ML (8.6-58.9) Thyroid Stimulating Hormone (TSH) 4.727 uiU/mL (0.358-3.740) Free Thyroxine 1.20 NG/DL (0.76-1.46) Microbiology Date/Time Source Procedure Growth Status 08/08/17 23:45 Sacral Wound Gram Stain - Final Resulted 08/08/17 23:45 Sacral Wound Wound Culture Pending Resulted Height (Feet): 5 Height (Inches): 10.00 Weight (Pounds): 240 Medications Current Medications Medications (Trade) Dose Ordered Sig/Tony Route PRN Reason Start Time Stop Time Status Last Admin Dose Admin Acetaminophen (Tylenol Peds) 160 mg Q4H PRN ORAL Temp > 100 08/07/17 18:30 09/06/17 18:29 Albuterol Sulfate (Proventil) 2.5 mg Q3H PRN IN-LINE Shortness of Breath 08/07/17 18:30 08/12/17 18:29 Albuterol/ Ipratropium (Albuterol/ Ipratropium) 3 ml Q4H PRN HHN Persistent Shortness of Breath 08/07/17 18:30 08/12/17 18:29 Dextrose (Dextrose 50%) STAT PRN IV Hypoglycemia 08/07/17 18:30 09/06/17 18:29 Dextrose/ Electrolytes 1,000 ml @ 100 mls/hr Q10H IV 08/09/17 12:30 09/08/17 12:29 08/09/17 12:28 Heparin Sodium (Porcine) (Heparin 5000 units/ml) 5,000 units EVERY 12 HOURS SUBQ 08/07/17 21:00 09/06/17 20:59 08/09/17 09:03 Insulin Aspart (NovoLOG) EVERY 6 HOURS SUBQ 08/08/17 00:00 09/07/17 00:00 08/09/17 12:05 Lansoprazole (Prevacid) 30 mg DAILY GT 08/10/17 09:00 09/09/17 08:59 Levetiracetam (Keppra) 500 mg Q12HR GT 08/07/17 21:00 09/06/17 20:59 08/09/17 08:59 Magnesium Hydroxide (Mom) 30 ml DAILYPRN PRN ORAL Constipation 08/07/17 18:30 09/06/17 18:29 Metformin HCl (Glucophage) 1,000 mg Q12HR GT 08/07/17 21:00 09/06/17 20:59 08/08/17 20:57 Metoclopramide HCl (Reglan) 5 mg EVERY 6 HOURS GT 08/09/17 12:00 09/08/17 11:59 08/09/17 12:19 Morphine Sulfate (Morphine Sulfate) 2 mg Q8H PRN IVP Moderate to Severe Pain 08/07/17 18:30 08/14/17 18:29 Piperacillin Sod/ Tazobactam Sod 3.375 gm/Dextrose 110 ml @ 27.5 mls/hr EVERY 8 HOURS IVPB 08/07/17 22:00 08/14/17 21:59 08/09/17 14:39 Polyethylene Glycol (Miralax) 17 gm DAILYPRN PRN GT Constipation 08/07/17 18:30 09/06/17 18:29 Thiamine HCl (Vitamin B1) 100 mg DAILY GT 08/08/17 09:00 09/07/17 08:59 08/09/17 08:59 Vancomycin HCl (Vanco rx to dose) 1 ea DAILY PRN MISC Per rx protocol 08/09/17 14:30 09/08/17 14:29 Vancomycin HCl 2 gm/Dextrose 550 ml @ 220 mls/hr ONCE ONCE IVPB 08/09/17 16:00 08/09/17 18:29 Vancomycin HCl/ Dextrose 250 ml @ 166.667 mls/hr Q8H IVPB 08/10/17 00:00 08/15/17 00:00 Vitamin D (Vitamin D) 400 intlu DAILY ORAL 08/08/17 09:00 09/07/17 08:59 08/09/17 08:59 Assessment/Plan Problem List: (1) Abdominal distention Assessment & Plan: 46M multiple medical problems who was in nursing facility had prior cholecystostomy tube that was pulled. thought to be more distended after tube pulled. exam benign. afebrile, labs okay. imaging reviewed. -seems to be okay without sequela since cholecystostomy removed. would have preferred to have cholangiogram before tube removed but since patient pulled there is nothing we can do now. no obstruction or ponce noted at this time. LFT's okay. -mild bowel distention but tolerating feeds and good output. -no acute surgical intervention needed. -feeds as tolerated. thank you for this consultation. will follow with recs. ICD Codes: R14.0 - Abdominal distension (gaseous) SNOMED: 25693118 Status: stable Steve Franks Aug 09, 2017 15:59
[2017-08-09 16:00] VITALS: BP 116/77
[2017-08-09] MEDS ORDERED: Vancomycin 2 GM in D5W 500ml 550 ML IVPB ONE (16:00)
--- NOTE | 2017-08-09 17:40 | General Progress Note ---
Assessment/Plan Status: stable Assessment/Plan 1. Abdominal distention status post self extractions of cholecystectomy tube. 2. Systemic inflammatory response syndrome. 3. Healthcare-associated urinary tract infection. 4. Diabetes type 2. 5. Seizure disorder. 6. Gastrointestinal and deep venous thrombosis prophylaxis. Plan: following notes reviewed Pulmonary ID Replacement of Cholecystectomy ! current empirical abx management Subjective ROS Limited/Unobtainable: Yes Allergies: Coded Allergies: NO KNOWN DRUG ALLERGIES (Unverified Allergy, Unknown, 06/28/15) Objective Last 24 Hour Vital Signs Date Time Temp Pulse Resp B/P (MAP) Pulse Ox O2 Delivery O2 Flow Rate FiO2 08/09/17 17:16 66 12 28 08/09/17 16:00 97.4 67 19 116/77 100 Mechanical Ventilator 28 97.4 08/09/17 15:24 84 08/09/17 15:15 68 13 28 08/09/17 13:07 69 12 28 08/09/17 12:00 68 08/09/17 12:00 97.9 63 18 114/79 100 Mechanical Ventilator 28 97.9 08/09/17 12:00 28 08/09/17 10:49 60 12 28 08/09/17 08:40 60 12 28 08/09/17 08:00 64 08/09/17 08:00 28 08/09/17 07:52 97.2 69 19 108/76 100 Mechanical Ventilator 28 97.2 08/09/17 06:40 74 13 28 08/09/17 05:02 58 12 28 08/09/17 04:00 97.0 58 12 102/76 100 Mechanical Ventilator 28 97.0 08/09/17 04:00 28 08/09/17 03:31 54 08/09/17 03:18 56 12 28 08/09/17 01:09 64 12 28 08/09/17 00:00 28 08/09/17 00:00 97.9 66 12 102/76 100 Mechanical Ventilator 28 97.9 08/08/17 23:30 70 08/08/17 22:56 76 12 28 08/08/17 20:50 80 13 28 08/08/17 20:00 28 08/08/17 20:00 97.7 76 12 132/76 100 Mechanical Ventilator 28 97.7 08/08/17 20:00 83 08/08/17 18:57 83 15 28 Intake and Output 08/08/17 08/09/17 19:00 07:00 Intake Total 437.5 ml 927.5 ml Output Total 250 ml Balance 437.5 ml 677.5 ml Intake IV Total 437.5 ml 927.5 ml Output Urine Total 250 ml # Voids 2 # Bowel Movements 5 Laboratory Tests 08/09/17 03:30: White Blood Count 7.9, Red Blood Count 3.64L, Hemoglobin 10.3L, Hematocrit 31.9L , Mean Corpuscular Volume 88, Mean Corpuscular Hemoglobin 28.3, Mean Corpuscular Hemoglobin Concent 32.3, Red Cell Distribution Width 15.5H, Platelet Count 307, Mean Platelet Volume 10.0, Neutrophils (%) (Auto) 64.2, Lymphocytes (%) (Auto) 24.5, Monocytes (%) (Auto) 7.8, Eosinophils (%) (Auto) 2.7, Basophils (%) (Auto) 0.8, Reticulocyte Count 2.7H, Prothrombin Time 10.8, Prothromb Time International Ratio 1.0, Activated Partial Thromboplast Time 27, Sodium Level 137, Potassium Level 3.4L, Chloride Level 101, Carbon Dioxide Level 25, Anion Gap 11, Blood Urea Nitrogen 10, Creatinine 0.7, Estimat Glomerular Filtration Rate > 60, Glucose Level 190H, Calcium Level 9.6, Iron Level 45L, Total Iron Binding Capacity 280, Percent Iron Saturation 16, Unsaturated Iron Binding 235, Ferritin 70, Vitamin B12 Level 472, Folate 19.8, Thyroid Stimulating Hormone (TSH) 4.727H, Free Thyroxine 1.20 Height (Feet): 5 Height (Inches): 10.00 Weight (Pounds): 240 General Appearance: other - not verbal. not following commands EENT: other - Trach in place Neck: supple Cardiovascular: tachycardia Respiratory/Chest: crackles/rales, rhonchi - bilaterally Abdomen: soft, other - PEG in place, no tenderness Extremities: non-tender, other - Paraplegia Neurologic: other - NOt verbal Honey Granda MD Aug 09, 2017 17:40
[2017-08-09 20:00] VITALS: BP 133/88
--- NOTE | 2017-08-09 21:38 | Wound Care Consultation ---
Wound Assessment Wound Assessment #1: Wound Number: 1 Wound Present on Admission: Yes New Wound: No Status Change of Wound: No Wound Location Body Site Modif: right Wound Location Body Site: ischial tuberosity Wound Type: pressure ulcer Kirsten Test: Does not Kirsten Pressure Ulcer Stage: Deep Tissue Injury Wound Thickness: Full Thickness Wound Length: 2.5 Wound Width: 2.5 Wound Depth: utd Percent of Wound Purple/Maroon: 100 Wound Drainage Amount: None Wound Drainage Odor: None/Absent Tissue Surrounding Wound: full thickness scar tissue Wound General Appearance: Reddened - maroon Wound Assessment #2: Wound Number: 2 Wound Present on Admission: Yes New Wound: No Status Change of Wound: No Wound Location Body Site Modif: mid Wound Location Body Site: other - Sacrococcygeal Wound Type: pressure ulcer Kirsten Test: Does not Kirsten Pressure Ulcer Stage: III Wound Thickness: Full Thickness Wound Length: 3.0 Wound Width: 2.0 Wound Depth: 0.2 Percent of Wound [place]/Red: 100 Wound Drainage Description: Serosanguineous Wound Drainage Amount: Scant Wound Drainage Odor: None/Absent Tissue Surrounding Wound: Macerated - and full thicness scar Wound General Appearance: Reddened, Draining Wound Assessment #3: Wound Number: 3 Wound Present on Admission: Yes New Wound: No Status Change of Wound: No Wound Location Body Site Modif: right Wound Location Body Site: other - Sacrococcygeal area Wound Type: pressure ulcer Kirsten Test: Does not Kirsten Pressure Ulcer Stage: II Wound Thickness: Partial Thickness Wound Length: 4.5 Wound Width: 3.5 Wound Depth: less than 0.1 Percent of Wound [place]/Red: 100 Wound Drainage Description: Serosanguineous Wound Drainage Amount: Scant Wound Drainage Odor: None/Absent Tissue Surrounding Wound: macerated full thickness tissue Wound General Appearance: Reddened, Draining Wound Assessment #4: Wound Number: 4 Wound Present on Admission: Yes New Wound: No Status Change of Wound: No Wound Location Body Site Modif: right, upper Wound Location Body Site: sacral Wound Type: pressure ulcer Kirsten Test: Does not Kirsten Pressure Ulcer Stage: II Wound Thickness: Partial Thickness Wound Length: 1.5 Wound Width: 1.5 Wound Depth: 0.1 Percent of Wound [place]/Red: 100 Wound Drainage Description: Serosanguineous Wound Drainage Amount: Scant Wound Drainage Odor: None/Absent Tissue Surrounding Wound: Macerated - full thickness scar Wound General Appearance: Reddened, Draining Wound Assessment #5: Wound Number: 5 Wound Present on Admission: Yes New Wound: No Status Change of Wound: No Wound Location Body Site Modif: left Wound Location Body Site: ischial tuberosity Wound Type: pressure ulcer Kirsten Test: Does not Kirsten Pressure Ulcer Stage: II Wound Thickness: Partial Thickness Wound Length: 1.5 Wound Width: 1.0 Wound Depth: 0.1 Percent of Wound [place]/Red: 100 Wound Drainage Description: Serosanguineous Wound Drainage Amount: Scant Wound Drainage Odor: None/Absent Tissue Surrounding Wound: Macerated - full thickness tissue Wound General Appearance: Reddened, Draining Wound Comment #1 Right ischial tuberosity DTI pressure ulcer over full thickness scar tissue. #2 Mid sacrococcygeal stage III pressure ulcer #3 Right sacrococcygeal stage II pressure ulcer #4 Right upper sacral II pressure ulcer #5 Left ischial tuberosity stage II pressure ulcer Recommendation -Local wound care per protocol -Keep clean and dry -Turn and reposition -Optimize nutrition -Offload both heels -Heel protector on both heels -Low air loss mattress -Assess and f/u accordingly for any changes CARL MENDEZ RN Aug 09, 2017 21:38
[2017-08-10] VITALS: BP 105/71
[2017-08-10] MEDS: Metoclopramide 10mg/10ml Liq GT SCH ×5 (00:16→23:27)
[2017-08-10] MEDS: Vancomycin 1250mg/D5W 250ml IVPB SCH ×2 (00:16→08:27)
[2017-08-10] MEDS: NovoLOG Insulin Flexpen SUBQ SCH ×5 (00:18→23:29)
[2017-08-10 04:00] VITALS: BP 111/75
[2017-08-10 05:20] LABS: BASOPHILS % (AUTO) 0.6 % (0.0-2.0); EOSINOPHILS % (AUTO) 1.9 % (0.0-3.0); HEMATOCRIT 31.3 % (42.0-52.0); HEMOGLOBIN 10.5 G/DL (14.2-18.0); LYMPHOCYTES % (AUTO) 17.7 % (20.0-45.0); MEAN CORPUSCULAR VOLUME 87 FL (80-99); MONOCYTES % (AUTO) 9.8 % (1.0-10.0); PLATELET COUNT 283 K/UL (150-450); RED BLOOD COUNT 3.59 M/UL (4.70-6.10); RED CELL DISTRIBUTION WIDTH 15.4 % (11.6-14.8); WHITE BLOOD COUNT 8.7 K/UL (4.8-10.8)
[2017-08-10 05:28] LABS: ALANINE AMINOTRANSFERASE 78 U/L (12-78); ALBUMIN 2.8 G/DL (3.4-5.0); ALBUMIN/GLOBULIN RATIO 0.6 (1.0-2.7); ALKALINE PHOSPHATASE 54 U/L (46-116); ANION GAP 10 mmol/L (5-15); ASPARTATE AMINO TRANSFERASE 41 U/L (15-37); BILIRUBIN,TOTAL 0.7 MG/DL (0.2-1.0); BLOOD UREA NITROGEN 6 mg/dL (7-18); CALCIUM 9.2 MG/DL (8.5-10.1); CARBON DIOXIDE 24 MMOL/L (21-32); CHLORIDE 103 MMOL/L (98-107); CREATININE 0.8 MG/DL (0.55-1.30); POTASSIUM 3.3 MMOL/L (3.5-5.1); SODIUM 137 MMOL/L (136-145)
[2017-08-10] MEDS: Piperacillin/Tazobactam 3.375 GM in D5W 110 ML IVPB SCH ×3 (05:45→20:58)
[2017-08-10 08:00] VITALS: BP 143/69
[2017-08-10] MEDS: D5 1/2NS w/KCl 20mEq 1,000 ML IV SCH ×2 (08:47→18:00)
[2017-08-10] MEDS: Thiamine 100mg tab GT SCH (08:47)
[2017-08-10] MEDS: Vitamin D 400 INTLU TAB ORAL SCH (08:47)
[2017-08-10] MEDS: levETIRAcetam 500mg/5ml Liquid GT SCH ×2 (08:47→20:55)
[2017-08-10] MEDS: metFORMIN 500mg tab GT SCH ×2 (08:48→20:55)
[2017-08-10] MEDS: Heparin 5000 units/ml inj SUBQ SCH ×2 (08:51→20:56)
[2017-08-10] MEDS ORDERED: NS 500ML ONE (10:18)
[2017-08-10] MEDS ORDERED: Tubing IV Secondary IV ONE (10:18)
[2017-08-10] MEDS ORDERED: NS 275ml ONE (10:18)
[2017-08-10] MEDS ORDERED: D5 1/2NS 1000ml IV ONE (10:18)
--- NOTE | 2017-08-10 10:29 | General Surgery Progress Note ---
General Surgery-Progress Note Subjective Additional Comments no acute events. having BM's. no issues from surgical standpoint Objective Last 24 Hour Vital Signs Date Time Temp Pulse Resp B/P (MAP) Pulse Ox O2 Delivery O2 Flow Rate FiO2 08/10/17 09:05 53 12 28 08/10/17 08:00 28 08/10/17 08:00 97.7 58 13 143/69 99 Mechanical Ventilator 28 97.7 08/10/17 07:10 51 12 28 08/10/17 05:29 71 14 28 08/10/17 04:00 97.9 79 13 111/75 99 Mechanical Ventilator 28 97.9 08/10/17 04:00 28 08/10/17 03:50 76 08/10/17 02:36 75 18 28 08/10/17 01:26 76 16 28 08/10/17 00:17 70 12 28 08/10/17 00:00 98.6 65 18 105/71 99 Mechanical Ventilator 28 98.6 08/10/17 00:00 28 08/09/17 23:59 66 08/09/17 21:14 69 13 28 08/09/17 20:38 70 08/09/17 20:00 97.9 78 16 133/88 99 Mechanical Ventilator 28 97.9 08/09/17 20:00 28 08/09/17 19:09 74 18 28 08/09/17 17:16 66 12 28 08/09/17 16:00 97.4 67 19 116/77 100 Mechanical Ventilator 28 97.4 08/09/17 16:00 28 08/09/17 15:24 84 08/09/17 15:15 68 13 28 08/09/17 13:07 69 12 28 08/09/17 12:00 68 08/09/17 12:00 97.9 63 18 114/79 100 Mechanical Ventilator 28 97.9 08/09/17 12:00 28 08/09/17 10:49 60 12 28 I&O Intake and Output 08/09/17 08/10/17 19:00 07:00 Intake Total 1307.57 ml 1777.734 ml Output Total 500 ml 700 ml Balance 807.57 ml 1077.734 ml Intake Free Water 80 ml IV Total 1177.57 ml 1677.734 ml Other 50 ml 100 ml Output Urine Total 450 ml 600 ml Stool Total 50 ml 100 ml # Bowel Movements 1 Cardiovascular: RSR Respiratory: clear Abdomen: soft, distended, non-tender, present bowel sounds Extremities: no cyanosis Laboratory Tests Test 08/10/17 03:50 08/10/17 05:30 White Blood Count 8.7 K/UL (4.8-10.8) Red Blood Count 3.59 M/UL (4.70-6.10) L Hemoglobin 10.5 G/DL (14.2-18.0) L Hematocrit 31.3 % (42.0-52.0) L Mean Corpuscular Volume 87 FL (80-99) Mean Corpuscular Hemoglobin 29.2 PG (27.0-31.0) Mean Corpuscular Hemoglobin Concent 33.5 G/DL (32.0-36.0) Red Cell Distribution Width 15.4 % (11.6-14.8) H Platelet Count 283 K/UL (150-450) Mean Platelet Volume 8.9 FL (6.5-10.1) Neutrophils (%) (Auto) 70.0 % (45.0-75.0) Lymphocytes (%) (Auto) 17.7 % (20.0-45.0) L Monocytes (%) (Auto) 9.8 % (1.0-10.0) Eosinophils (%) (Auto) 1.9 % (0.0-3.0) Basophils (%) (Auto) 0.6 % (0.0-2.0) Sodium Level 137 MMOL/L (136-145) Potassium Level 3.3 MMOL/L (3.5-5.1) L Chloride Level 103 MMOL/L (98-107) Carbon Dioxide Level 24 MMOL/L (21-32) Anion Gap 10 mmol/L (5-15) Blood Urea Nitrogen 6 mg/dL (7-18) L Creatinine 0.8 MG/DL (0.55-1.30) Estimat Glomerular Filtration Rate > 60 mL/min (>60) Glucose Level 203 MG/DL (74-106) H Calcium Level 9.2 MG/DL (8.5-10.1) Total Bilirubin 0.7 MG/DL (0.2-1.0) Aspartate Amino Transf (AST/SGOT) 41 U/L (15-37) H Alanine Aminotransferase (ALT/SGPT) 78 U/L (12-78) Alkaline Phosphatase 54 U/L (46-116) Total Protein 7.6 G/DL (6.4-8.2) Albumin 2.8 G/DL (3.4-5.0) L Globulin 4.8 g/dL Albumin/Globulin Ratio 0.6 (1.0-2.7) L Stool Occult Blood Pending Plan Problems: (1) Abdominal distention Assessment & Plan: 46M multiple medical problems who was in nursing facility had prior cholecystostomy tube that was pulled. thought to be more distended after tube pulled. exam benign. afebrile, labs okay. imaging reviewed. -seems to be okay without sequela since cholecystostomy removed. would have preferred to have cholangiogram before tube removed but since patient pulled there is nothing we can do now. no obstruction or ponce noted at this time. LFT's okay. -mild bowel distention but tolerating feeds and good output. -no acute surgical intervention needed. -feeds as tolerated. thank you for this consultation. will follow with recs. Steve Franks Aug 10, 2017 10:29
[2017-08-10 12:45] VITALS: BP 105/70
--- NOTE | 2017-08-10 12:52 | Infectious Diseases Prog Note ---
Assessment/Plan Assessment/Plan Assessment: Abd distention after removal of Cholecystostomy tube- 2ry to ileus. ? mild colitis/enteritis- LFts normal no biliary distentioin on CT -CT abd/p: No evidence of biloma or other complications relatable to stated clinical history of recent cholecystostomy removal. Borderline distended gas- filled colon, prominent colon gas extending to the level of the mid to distal distal descending colon, without evidence of obstructive lesion. Probably functional in nature. There is questionably some focal wall thickening and pericolonic infiltration involving the proximal ascending colon. This as well as proximal and distal fluid could indicate mild colitis changes. Prominent gas and fluid-filled small bowel, no evidence of obstructive pathology. Findings may represent ileus or mild enteritis changes as well. Mild hepatomegaly. Mild bilateral perinephric fat stranding, unchanged, probably chronic. Nonobstructive bilateral intrarenal calculi. Waddell catheter. Breast ostomy. Sigmoid diverticulosis. No evidence of diverticulitis. Bilateral basilar pulmonary atelectasis. Cardiomegaly. Borderline hepatomegaly Leukocytosis- 2ry to above- resolved -afebrile -u/a wbc 30-40, nit -, leuk +2 1/ Gram positive bacteremia- real vs contaminant- suspect contaminant,await ID and repeat Bcx -08/07 Bcx 1/4 +; 08/09 Bcx p chronic cholecystitis s/p cholecystostomy tube asthma/COPD HTN Dm2 Dementia CVA s/p vegetative state chronic resp failure vent/trach dependant dysphagia s/p G-tube seizure disorder SNF resident Plan: -Continue empiric ZOsyn #4/5-7 and add IV Vancomcyin #2 pending IG GPC clusters and repeat bcx -f/u repaet 2 sets of Bcx -if s. aureus, will get 2 d echo -GI and x f/u-?need to replace cholecystostomy tube -f/u cx -Monitor CBC, BMP, temperatures -trach/peg care -aspiration precautions Thank you for this consultation. Will continue to follow along with you. Discussed with RN, Subjective Allergies: Coded Allergies: NO KNOWN ALLERGIES (Unverified Allergy, Unknown, 01/27/15) NO KNOWN DRUG ALLERGIES (Unverified Allergy, Unknown, 06/28/15) Subjective afebrile no leukocytosis r Bcx 1/4 GPC clusters Objective Vital Signs Last 24 Hour Vital Signs Date Time Temp Pulse Resp B/P (MAP) Pulse Ox O2 Delivery O2 Flow Rate FiO2 08/10/17 11:29 62 14 28 08/10/17 09:05 53 12 28 08/10/17 08:00 28 08/10/17 08:00 49 08/10/17 08:00 97.7 58 13 143/69 99 Mechanical Ventilator 28 97.7 08/10/17 07:10 51 12 28 08/10/17 05:29 71 14 28 08/10/17 04:00 97.9 79 13 111/75 99 Mechanical Ventilator 28 97.9 08/10/17 04:00 28 08/10/17 03:50 76 08/10/17 02:36 75 18 28 08/10/17 01:26 76 16 28 08/10/17 00:17 70 12 28 08/10/17 00:00 98.6 65 18 105/71 99 Mechanical Ventilator 28 98.6 08/10/17 00:00 28 08/09/17 23:59 66 08/09/17 21:14 69 13 28 08/09/17 20:38 70 08/09/17 20:00 97.9 78 16 133/88 99 Mechanical Ventilator 28 97.9 08/09/17 20:00 28 08/09/17 19:09 74 18 28 08/09/17 17:16 66 12 28 08/09/17 16:00 97.4 67 19 116/77 100 Mechanical Ventilator 28 97.4 08/09/17 16:00 28 08/09/17 15:24 84 08/09/17 15:15 68 13 28 08/09/17 13:07 69 12 28 Height (Feet): 5 Height (Inches): 10.00 Weight (Pounds): 240 Objective General Appearance: no apparent distress, other - encephalopathy Head: normocephalic Eyes: bilateral eye normal inspection, bilateral eye PERRL ENT: normal ENT inspection Neck: tracheotomy Respiratory: chest non-tender, lungs clear, normal breath sounds, speaking full sentences Cardiovascular regular rate, rhythm, no edema Gastrointestinal: distended - Gtube in place. missing cholecystectomy tube Genitourinary: no CVA tenderness Musculoskeletal: normal inspection Skin: normal inspection Microbiology Date/Time Source Procedure Growth Status 08/08/17 23:45 Sacral Wound Gram Stain - Final Resulted 08/08/17 23:45 Sacral Wound Wound Culture Pending Resulted Laboratory Tests Test 08/10/17 03:50 08/10/17 05:30 White Blood Count 8.7 K/UL (4.8-10.8) Red Blood Count 3.59 M/UL (4.70-6.10) L Hemoglobin 10.5 G/DL (14.2-18.0) L Hematocrit 31.3 % (42.0-52.0) L Mean Corpuscular Volume 87 FL (80-99) Mean Corpuscular Hemoglobin 29.2 PG (27.0-31.0) Mean Corpuscular Hemoglobin Concent 33.5 G/DL (32.0-36.0) Red Cell Distribution Width 15.4 % (11.6-14.8) H Platelet Count 283 K/UL (150-450) Mean Platelet Volume 8.9 FL (6.5-10.1) Neutrophils (%) (Auto) 70.0 % (45.0-75.0) Lymphocytes (%) (Auto) 17.7 % (20.0-45.0) L Monocytes (%) (Auto) 9.8 % (1.0-10.0) Eosinophils (%) (Auto) 1.9 % (0.0-3.0) Basophils (%) (Auto) 0.6 % (0.0-2.0) Sodium Level 137 MMOL/L (136-145) Potassium Level 3.3 MMOL/L (3.5-5.1) L Chloride Level 103 MMOL/L (98-107) Carbon Dioxide Level 24 MMOL/L (21-32) Anion Gap 10 mmol/L (5-15) Blood Urea Nitrogen 6 mg/dL (7-18) L Creatinine 0.8 MG/DL (0.55-1.30) Estimat Glomerular Filtration Rate > 60 mL/min (>60) Glucose Level 203 MG/DL (74-106) H Calcium Level 9.2 MG/DL (8.5-10.1) Total Bilirubin 0.7 MG/DL (0.2-1.0) Aspartate Amino Transf (AST/SGOT) 41 U/L (15-37) H Alanine Aminotransferase (ALT/SGPT) 78 U/L (12-78) Alkaline Phosphatase 54 U/L (46-116) Total Protein 7.6 G/DL (6.4-8.2) Albumin 2.8 G/DL (3.4-5.0) L Globulin 4.8 g/dL Albumin/Globulin Ratio 0.6 (1.0-2.7) L Stool Occult Blood Negative (NEGATIVE) Current Medications Medications (Trade) Dose Ordered Sig/Tony Route PRN Reason Start Time Stop Time Status Last Admin Dose Admin Acetaminophen (Tylenol Peds) 160 mg Q4H PRN ORAL Temp > 100 08/07/17 18:30 09/06/17 18:29 Albuterol Sulfate (Proventil) 2.5 mg Q3H PRN IN-LINE Shortness of Breath 08/07/17 18:30 08/12/17 18:29 Albuterol/ Ipratropium (Albuterol/ Ipratropium) 3 ml Q4H PRN HHN Persistent Shortness of Breath 08/07/17 18:30 08/12/17 18:29 Dextrose (Dextrose 50%) STAT PRN IV Hypoglycemia 08/07/17 18:30 09/06/17 18:29 Dextrose/ Electrolytes 1,000 ml @ 100 mls/hr Q10H IV 08/09/17 12:30 09/08/17 12:29 08/10/17 08:47 Heparin Sodium (Porcine) (Heparin 5000 units/ml) 5,000 units EVERY 12 HOURS SUBQ 08/07/17 21:00 09/06/17 20:59 08/10/17 08:51 Insulin Aspart (NovoLOG) EVERY 6 HOURS SUBQ 08/08/17 00:00 09/07/17 00:00 08/10/17 12:29 Lansoprazole (Prevacid) 30 mg DAILY GT 08/10/17 09:00 09/09/17 08:59 08/10/17 08:47 Levetiracetam (Keppra) 500 mg Q12HR GT 08/07/17 21:00 09/06/17 20:59 08/10/17 08:47 Magnesium Hydroxide (Mom) 30 ml DAILYPRN PRN ORAL Constipation 08/07/17 18:30 09/06/17 18:29 Metformin HCl (Glucophage) 1,000 mg Q12HR GT 08/07/17 21:00 09/06/17 20:59 08/08/17 20:57 Metoclopramide HCl (Reglan) 5 mg EVERY 6 HOURS GT 08/09/17 12:00 09/08/17 11:59 08/10/17 12:29 Morphine Sulfate (Morphine Sulfate) 2 mg Q8H PRN IVP Moderate to Severe Pain 08/07/17 18:30 08/14/17 18:29 Piperacillin Sod/ Tazobactam Sod 3.375 gm/Dextrose 110 ml @ 27.5 mls/hr EVERY 8 HOURS IVPB 08/07/17 22:00 08/14/17 21:59 08/10/17 05:45 Polyethylene Glycol (Miralax) 17 gm DAILYPRN PRN GT Constipation 08/07/17 18:30 09/06/17 18:29 Thiamine HCl (Vitamin B1) 100 mg DAILY GT 08/08/17 09:00 09/07/17 08:59 08/10/17 08:47 Vancomycin HCl (Vanco rx to dose) 1 ea DAILY PRN MISC Per rx protocol 08/09/17 14:30 09/08/17 14:29 Vancomycin HCl/ Dextrose 250 ml @ 166.667 mls/hr Q8H IVPB 08/10/17 00:00 08/15/17 00:00 08/10/17 08:27 Vitamin D (Vitamin D) 400 intlu DAILY ORAL 08/08/17 09:00 09/07/17 08:59 08/10/17 08:47 Laura Gimenez M.D. Aug 10, 2017 12:52
--- NOTE | 2017-08-10 13:47 | General Progress Note ---
Assessment/Plan Problem List: (1) colonic ileus (2) Status post tracheostomy ICD Codes: Z93.0 - Tracheostomy status SNOMED: 93944032 (3) Dyspnea ICD Codes: R06.00 - Dyspnea, unspecified SNOMED: 209619565 (4) Esophagitis ICD Codes: K20.9 - Esophagitis, unspecified SNOMED: 28915609 (5) Ventilator dependent ICD Codes: Z99.11 - Dependence on respirator [ventilator] status SNOMED: 455826571 Assessment/Plan start GTF fu labs daily exam Subjective ROS Limited/Unobtainable: No Allergies: Coded Allergies: NO KNOWN ALLERGIES (Unverified Allergy, Unknown, 01/27/15) NO KNOWN DRUG ALLERGIES (Unverified Allergy, Unknown, 06/28/15) Objective Last 24 Hour Vital Signs Date Time Temp Pulse Resp B/P (MAP) Pulse Ox O2 Delivery O2 Flow Rate FiO2 08/10/17 12:59 58 14 28 08/10/17 12:45 99.5 60 16 105/70 100 Mechanical Ventilator 28 99.5 08/10/17 12:00 28 08/10/17 12:00 65 08/10/17 11:29 62 14 28 08/10/17 09:05 53 12 28 08/10/17 08:00 28 08/10/17 08:00 49 08/10/17 08:00 97.7 58 13 143/69 99 Mechanical Ventilator 28 97.7 08/10/17 07:10 51 12 28 08/10/17 05:29 71 14 28 08/10/17 04:00 97.9 79 13 111/75 99 Mechanical Ventilator 28 97.9 08/10/17 04:00 28 08/10/17 03:50 76 08/10/17 02:36 75 18 28 08/10/17 01:26 76 16 28 08/10/17 00:17 70 12 28 08/10/17 00:00 98.6 65 18 105/71 99 Mechanical Ventilator 28 98.6 08/10/17 00:00 28 08/09/17 23:59 66 08/09/17 21:14 69 13 28 08/09/17 20:38 70 08/09/17 20:00 97.9 78 16 133/88 99 Mechanical Ventilator 28 97.9 08/09/17 20:00 28 08/09/17 19:09 74 18 28 08/09/17 17:16 66 12 28 08/09/17 16:00 97.4 67 19 116/77 100 Mechanical Ventilator 28 97.4 08/09/17 16:00 28 08/09/17 15:24 84 08/09/17 15:15 68 13 28 Intake and Output 08/09/17 08/10/17 19:00 07:00 Intake Total 1307.57 ml 1777.734 ml Output Total 500 ml 700 ml Balance 807.57 ml 1077.734 ml Intake Free Water 80 ml IV Total 1177.57 ml 1677.734 ml Other 50 ml 100 ml Output Urine Total 450 ml 600 ml Stool Total 50 ml 100 ml # Bowel Movements 1 Laboratory Tests 08/10/17 03:50: White Blood Count 8.7, Red Blood Count 3.59L, Hemoglobin 10.5L, Hematocrit 31.3L , Mean Corpuscular Volume 87, Mean Corpuscular Hemoglobin 29.2, Mean Corpuscular Hemoglobin Concent 33.5, Red Cell Distribution Width 15.4H, Platelet Count 283, Mean Platelet Volume 8.9, Neutrophils (%) (Auto) 70.0, Lymphocytes (%) (Auto) 17.7L, Monocytes (%) (Auto) 9.8, Eosinophils (%) (Auto) 1.9, Basophils (%) (Auto) 0.6, Sodium Level 137, Potassium Level 3.3L, Chloride Level 103, Carbon Dioxide Level 24, Anion Gap 10, Blood Urea Nitrogen 6L, Creatinine 0.8, Estimat Glomerular Filtration Rate > 60, Glucose Level 203H, Calcium Level 9.2, Total Bilirubin 0.7, Aspartate Amino Transf (AST/SGOT) 41H, Alanine Aminotransferase (ALT/SGPT) 78, Alkaline Phosphatase 54, Total Protein 7.6, Albumin 2.8L, Globulin 4.8, Albumin/Globulin Ratio 0.6L 08/10/17 05:30: Stool Occult Blood Negative Height (Feet): 5 Height (Inches): 10.00 Weight (Pounds): 240 General Appearance: lethargic EENT: normal ENT inspection Neck: supple Cardiovascular: normal rate Respiratory/Chest: decreased breath sounds Abdomen: soft, hypoactive bowel sounds, distended Extremities: non-tender JOLLY SANON Aug 10, 2017 13:47
[2017-08-10 16:00] VITALS: BP 113/78
--- NOTE | 2017-08-10 16:40 | Internal Med Progress Note ---
Subjective Date of Service: Aug 10, 2017 Physician Name Randi Lunsford Attending Physician Honey Granda MD Current Medications Medications (Trade) Dose Ordered Sig/Tony Route PRN Reason Start Time Stop Time Status Last Admin Dose Admin Acetaminophen (Tylenol Peds) 160 mg Q4H PRN ORAL Temp > 100 08/07/17 18:30 09/06/17 18:29 Albuterol Sulfate (Proventil) 2.5 mg Q3H PRN IN-LINE Shortness of Breath 08/07/17 18:30 08/12/17 18:29 Albuterol/ Ipratropium (Albuterol/ Ipratropium) 3 ml Q4H PRN HHN Persistent Shortness of Breath 08/07/17 18:30 08/12/17 18:29 Dextrose (Dextrose 50%) STAT PRN IV Hypoglycemia 08/07/17 18:30 09/06/17 18:29 Dextrose/ Electrolytes 1,000 ml @ 100 mls/hr Q10H IV 08/09/17 12:30 09/08/17 12:29 08/10/17 08:47 Heparin Sodium (Porcine) (Heparin 5000 units/ml) 5,000 units EVERY 12 HOURS SUBQ 08/07/17 21:00 09/06/17 20:59 08/10/17 08:51 Insulin Aspart (NovoLOG) EVERY 6 HOURS SUBQ 08/08/17 00:00 09/07/17 00:00 08/10/17 12:29 Lansoprazole (Prevacid) 30 mg DAILY GT 08/10/17 09:00 09/09/17 08:59 08/10/17 08:47 Levetiracetam (Keppra) 500 mg Q12HR GT 08/07/17 21:00 09/06/17 20:59 08/10/17 08:47 Magnesium Hydroxide (Mom) 30 ml DAILYPRN PRN ORAL Constipation 08/07/17 18:30 09/06/17 18:29 Metformin HCl (Glucophage) 1,000 mg Q12HR GT 08/07/17 21:00 09/06/17 20:59 08/08/17 20:57 Metoclopramide HCl (Reglan) 5 mg EVERY 6 HOURS GT 08/09/17 12:00 09/08/17 11:59 08/10/17 12:29 Morphine Sulfate (Morphine Sulfate) 2 mg Q8H PRN IVP Moderate to Severe Pain 08/07/17 18:30 08/14/17 18:29 Piperacillin Sod/ Tazobactam Sod 3.375 gm/Dextrose 110 ml @ 27.5 mls/hr EVERY 8 HOURS IVPB 08/07/17 22:00 08/14/17 21:59 08/10/17 13:48 Polyethylene Glycol (Miralax) 17 gm DAILYPRN PRN GT Constipation 08/07/17 18:30 09/06/17 18:29 Thiamine HCl (Vitamin B1) 100 mg DAILY GT 08/08/17 09:00 09/07/17 08:59 08/10/17 08:47 Vancomycin HCl (Vanco rx to dose) 1 ea DAILY PRN MISC Per rx protocol 08/09/17 14:30 09/08/17 14:29 Vancomycin HCl/ Dextrose 250 ml @ 166.667 mls/hr Q8H IVPB 08/10/17 00:00 08/15/17 00:00 08/10/17 08:27 Vitamin D (Vitamin D) 400 intlu DAILY ORAL 08/08/17 09:00 09/07/17 08:59 08/10/17 08:47 Allergies: Coded Allergies: NO KNOWN DRUG ALLERGIES (Unverified Allergy, Unknown, 06/28/15) ROS Limited/Unobtainable: Yes Subjective 46 YO M admitted with abdominal distention. Now bacteremia and leukocytosis. Cover for Int [facility]-Dr Granda Objective Last Vital Signs Date Time Temp Pulse Resp B/P (MAP) Pulse Ox O2 Delivery O2 Flow Rate FiO2 08/10/17 14:33 60 12 28 08/10/17 12:45 99.5 105/70 100 Mechanical Ventilator 99.5 General Appearance: WD/WN, mild distress EENT: normal ENT inspection Neck: non-tender, normal alignment, supple Cardiovascular: normal peripheral pulses, normal rate, regular rhythm, no gallop/murmur, no JVD Respiratory/Chest: chest wall non-tender, lungs clear, normal breath sounds, no respiratory distress, no accessory muscle use Abdomen: no organomegaly, no mass, decreased bowel sounds, distended Skin: normal pigmentation, warm/dry Laboratory Tests Test 08/10/17 03:50 08/10/17 05:30 08/10/17 15:35 White Blood Count 8.7 K/UL (4.8-10.8) Red Blood Count 3.59 M/UL (4.70-6.10) L Hemoglobin 10.5 G/DL (14.2-18.0) L Hematocrit 31.3 % (42.0-52.0) L Mean Corpuscular Volume 87 FL (80-99) Mean Corpuscular Hemoglobin 29.2 PG (27.0-31.0) Mean Corpuscular Hemoglobin Concent 33.5 G/DL (32.0-36.0) Red Cell Distribution Width 15.4 % (11.6-14.8) H Platelet Count 283 K/UL (150-450) Mean Platelet Volume 8.9 FL (6.5-10.1) Neutrophils (%) (Auto) 70.0 % (45.0-75.0) Lymphocytes (%) (Auto) 17.7 % (20.0-45.0) L Monocytes (%) (Auto) 9.8 % (1.0-10.0) Eosinophils (%) (Auto) 1.9 % (0.0-3.0) Basophils (%) (Auto) 0.6 % (0.0-2.0) Sodium Level 137 MMOL/L (136-145) Potassium Level 3.3 MMOL/L (3.5-5.1) L Chloride Level 103 MMOL/L (98-107) Carbon Dioxide Level 24 MMOL/L (21-32) Anion Gap 10 mmol/L (5-15) Blood Urea Nitrogen 6 mg/dL (7-18) L Creatinine 0.8 MG/DL (0.55-1.30) Estimat Glomerular Filtration Rate > 60 mL/min (>60) Glucose Level 203 MG/DL (74-106) H Calcium Level 9.2 MG/DL (8.5-10.1) Total Bilirubin 0.7 MG/DL (0.2-1.0) Aspartate Amino Transf (AST/SGOT) 41 U/L (15-37) H Alanine Aminotransferase (ALT/SGPT) 78 U/L (12-78) Alkaline Phosphatase 54 U/L (46-116) Total Protein 7.6 G/DL (6.4-8.2) Albumin 2.8 G/DL (3.4-5.0) L Globulin 4.8 g/dL Albumin/Globulin Ratio 0.6 (1.0-2.7) L Stool Occult Blood Negative (NEGATIVE) Vancomycin Level Trough Pending Microbiology Date/Time Source Procedure Growth Status 08/08/17 23:45 Sacral Wound Gram Stain - Final Resulted 08/08/17 23:45 Sacral Wound Wound Culture Pending Resulted Intake and Output 08/09/17 08/10/17 19:00 07:00 Intake Total 1307.57 ml 1777.734 ml Output Total 500 ml 700 ml Balance 807.57 ml 1077.734 ml Intake Free Water 80 ml IV Total 1177.57 ml 1677.734 ml Other 50 ml 100 ml Output Urine Total 450 ml 600 ml Stool Total 50 ml 100 ml # Bowel Movements 1 Assessment/Plan Problem List: (1) Diabetes mellitus, type II Assessment & Plan: Continue novolog sliding scale. (2) Seizure disorder Assessment & Plan: continue Keppra (3) Cholecystitis Assessment & Plan: Non surgical; see surgery note. S/P cholecystostomy tube. (4) COPD (chronic obstructive pulmonary disease) Assessment & Plan: Continue duoneb and zosyn (5) Cerebral vascular disease (6) Dysphagia Assessment & Plan: S/P G-tube (7) Respiratory failure (8) Sepsis Assessment & Plan: Gram pos cocci. Continue vanco per ID (9) Acute and chronic respiratory failure (10) Status post tracheostomy (11) Abdominal distention (12) Ileus (13) Chronic vegetative state (14) Ventilator dependent Status: not improved RANDI LUNSFORD Aug 10, 2017 16:40
[2017-08-10 20:00] VITALS: BP 118/70
[2017-08-11] VITALS: BP 108/66
[2017-08-11] MEDS: D5 1/2NS w/KCl 20mEq 1,000 ML IV SCH ×2 (02:41→14:23)
[2017-08-11 04:00] VITALS: BP 114/71
[2017-08-11] MEDS: Metoclopramide 10mg/10ml Liq GT SCH ×3 (05:37→17:48)
[2017-08-11] MEDS: Piperacillin/Tazobactam 3.375 GM in D5W 110 ML IVPB SCH ×3 (05:37→22:15)
[2017-08-11] MEDS: NovoLOG Insulin Flexpen SUBQ SCH ×3 (05:39→17:49)
[2017-08-11 08:00] VITALS: BP 106/68
--- NOTE | 2017-08-11 08:06 | General Progress Note ---
Assessment/Plan Problem List: (1) colonic ileus (2) Status post tracheostomy ICD Codes: Z93.0 - Tracheostomy status SNOMED: 38848151 (3) Dyspnea ICD Codes: R06.00 - Dyspnea, unspecified SNOMED: 572705390 (4) Esophagitis ICD Codes: K20.9 - Esophagitis, unspecified SNOMED: 22085644 (5) Ventilator dependent ICD Codes: Z99.11 - Dependence on respirator [ventilator] status SNOMED: 109990831 Assessment/Plan GTF fu labs daily exam Subjective ROS Limited/Unobtainable: No Allergies: Coded Allergies: NO KNOWN DRUG ALLERGIES (Unverified Allergy, Unknown, 06/28/15) Objective Last 24 Hour Vital Signs Date Time Temp Pulse Resp B/P (MAP) Pulse Ox O2 Delivery O2 Flow Rate FiO2 08/11/17 08:00 98.2 71 18 106/68 99 Mechanical Ventilator 28 98.2 08/11/17 07:09 61 19 28 08/11/17 05:00 59 12 28 08/11/17 04:00 98.8 68 20 114/71 97 Mechanical Ventilator 28 98.8 08/11/17 04:00 28 08/11/17 03:36 67 08/11/17 03:32 68 13 28 08/11/17 01:38 84 14 28 08/11/17 00:00 97.8 83 16 108/66 98 Mechanical Ventilator 28 97.8 08/10/17 23:39 68 08/10/17 22:48 71 14 28 08/10/17 21:37 67 13 28 08/10/17 20:00 28 08/10/17 20:00 98.3 71 17 118/70 100 Mechanical Ventilator 28 98.3 08/10/17 19:55 62 08/10/17 19:10 62 15 28 08/10/17 16:56 60 14 28 08/10/17 16:00 59 08/10/17 16:00 28 08/10/17 16:00 97.9 60 13 113/78 100 Mechanical Ventilator 28 97.9 08/10/17 14:33 60 12 28 08/10/17 12:59 58 14 28 08/10/17 12:45 99.5 60 16 105/70 100 Mechanical Ventilator 28 99.5 08/10/17 12:00 28 08/10/17 12:00 65 08/10/17 11:29 62 14 28 08/10/17 09:05 53 12 28 Intake and Output 08/10/17 08/11/17 19:00 07:00 Intake Total 1885.600 ml 1991.3 ml Output Total 475 ml Balance 1410.600 ml 1991.3 ml Intake Free Water 250 ml 500 ml IV Total 1385.600 ml 1161.3 ml Tube Feeding 100 ml 280 ml Other 150 ml 50 ml Output Urine Total 475 ml Laboratory Tests 08/10/17 15:35: Vancomycin Level Trough 23.1H Height (Feet): 5 Height (Inches): 10.00 Weight (Pounds): 240 General Appearance: lethargic EENT: normal ENT inspection Neck: supple Cardiovascular: normal rate Respiratory/Chest: decreased breath sounds Abdomen: normal bowel sounds, non tender, soft Extremities: non-tender JOLLY SANON Aug 11, 2017 08:06
[2017-08-11] MEDS: levETIRAcetam 500mg/5ml Liquid GT SCH ×2 (09:16→20:47)
[2017-08-11] MEDS: Vitamin D 400 INTLU TAB ORAL SCH (09:16)
[2017-08-11] MEDS: Thiamine 100mg tab GT SCH (09:16)
[2017-08-11] MEDS: metFORMIN 500mg tab GT SCH ×2 (09:16→20:47)
[2017-08-11] MEDS: Heparin 5000 units/ml inj SUBQ SCH ×2 (09:17→20:49)
[2017-08-11 12:00] VITALS: BP 93/64
[2017-08-11] MEDS ORDERED: Vancomycin 1250mg/D5W 250ml 250 ML IVPB SCH (15:00)
--- NOTE | 2017-08-11 15:14 | Internal Med Progress Note ---
Subjective Date of Service: Aug 11, 2017 Physician Name Randi Lunsford Attending Physician Honey Granda MD Current Medications Medications (Trade) Dose Ordered Sig/Tony Route PRN Reason Start Time Stop Time Status Last Admin Dose Admin Acetaminophen (Tylenol Peds) 160 mg Q4H PRN ORAL Temp > 100 08/07/17 18:30 09/06/17 18:29 Albuterol Sulfate (Proventil) 2.5 mg Q3H PRN IN-LINE Shortness of Breath 08/07/17 18:30 08/12/17 18:29 Albuterol/ Ipratropium (Albuterol/ Ipratropium) 3 ml Q4H PRN HHN Persistent Shortness of Breath 08/07/17 18:30 08/12/17 18:29 Dextrose (Dextrose 50%) STAT PRN IV Hypoglycemia 08/07/17 18:30 09/06/17 18:29 Dextrose/ Electrolytes 1,000 ml @ 100 mls/hr Q10H IV 08/09/17 12:30 09/08/17 12:29 08/11/17 14:23 Heparin Sodium (Porcine) (Heparin 5000 units/ml) 5,000 units EVERY 12 HOURS SUBQ 08/07/17 21:00 09/06/17 20:59 08/11/17 09:17 Insulin Aspart (NovoLOG) EVERY 6 HOURS SUBQ 08/08/17 00:00 09/07/17 00:00 08/11/17 12:20 Lansoprazole (Prevacid) 30 mg DAILY GT 08/10/17 09:00 09/09/17 08:59 08/11/17 09:16 Levetiracetam (Keppra) 500 mg Q12HR GT 08/07/17 21:00 09/06/17 20:59 08/11/17 09:16 Magnesium Hydroxide (Mom) 30 ml DAILYPRN PRN ORAL Constipation 08/07/17 18:30 09/06/17 18:29 Metformin HCl (Glucophage) 1,000 mg Q12HR GT 08/07/17 21:00 09/06/17 20:59 08/11/17 09:16 Metoclopramide HCl (Reglan) 5 mg EVERY 6 HOURS GT 08/09/17 12:00 09/08/17 11:59 08/11/17 12:20 Morphine Sulfate (Morphine Sulfate) 2 mg Q8H PRN IVP Moderate to Severe Pain 08/07/17 18:30 08/14/17 18:29 Piperacillin Sod/ Tazobactam Sod 3.375 gm/Dextrose 110 ml @ 27.5 mls/hr EVERY 8 HOURS IVPB 08/07/17 22:00 08/14/17 21:59 08/11/17 14:22 Polyethylene Glycol (Miralax) 17 gm DAILYPRN PRN GT Constipation 08/07/17 18:30 09/06/17 18:29 Thiamine HCl (Vitamin B1) 100 mg DAILY GT 08/08/17 09:00 09/07/17 08:59 08/11/17 09:16 Vancomycin HCl (Vanco rx to dose) 1 ea DAILY PRN MISC Per rx protocol 08/09/17 14:30 09/08/17 14:29 Vancomycin HCl/ Dextrose 250 ml @ 166.667 mls/hr Q12HR@0400,1600 IVPB 08/11/17 15:00 08/16/17 14:59 Vitamin D (Vitamin D) 400 intlu DAILY ORAL 08/08/17 09:00 09/07/17 08:59 08/11/17 09:16 Allergies: Coded Allergies: NO KNOWN DRUG ALLERGIES (Unverified Allergy, Unknown, 06/28/15) ROS Limited/Unobtainable: Yes Subjective 46 YO M admitted with abdominal distention. Now bacteremia and leukocytosis. Cover for Int Med-Dr Granda. GONZALO Objective Last Vital Signs Date Time Temp Pulse Resp B/P (MAP) Pulse Ox O2 Delivery O2 Flow Rate FiO2 08/11/17 15:12 64 15 28 08/11/17 12:00 99.1 93/64 100 Mechanical Ventilator 99.1 Laboratory Tests Test 08/10/17 15:35 Vancomycin Level Trough 23.1 ug/mL (5.0-12.0) H Microbiology Date/Time Source Procedure Growth Status 08/09/17 20:00 Blood Blood Culture - Preliminary NO GROWTH AFTER 24 HOURS Resulted 08/09/17 19:40 Blood Blood Culture - Preliminary NO GROWTH AFTER 24 HOURS Resulted 08/08/17 23:45 Sacral Wound Gram Stain - Final Resulted 08/08/17 23:45 Wound Culture - Preliminary Gram Negative To Resulted Intake and Output 08/10/17 08/11/17 19:00 07:00 Intake Total 1885.600 ml 2148.8 ml Output Total 475 ml Balance 1410.600 ml 2148.8 ml Intake Free Water 250 ml 500 ml IV Total 1385.600 ml 1288.8 ml Tube Feeding 100 ml 310 ml Other 150 ml 50 ml Output Urine Total 475 ml Objective General Appearance: WD/WN, mild distress EENT: normal ENT inspection Neck: non-tender, normal alignment, supple Cardiovascular: normal peripheral pulses, normal rate, regular rhythm, no gallop/murmur, no JVD Respiratory/Chest: chest wall non-tender, lungs clear, normal breath sounds, no respiratory distress, no accessory muscle use Abdomen: no organomegaly, no mass, decreased bowel sounds, distended Skin: normal pigmentation, warm/dry Assessment/Plan Problem List: (1) Diabetes mellitus, type II Assessment & Plan: Continue novolog sliding scale. (2) Seizure disorder Assessment & Plan: continue Keppra (3) Cholecystitis Assessment & Plan: Non surgical; see surgery note. S/P cholecystostomy tube. (4) COPD (chronic obstructive pulmonary disease) Assessment & Plan: Continue duoneb and zosyn (5) Cerebral vascular disease (6) Dysphagia Assessment & Plan: S/P G-tube (7) Respiratory failure (8) Sepsis Assessment & Plan: Staph epidermidis. Continue vanco per ID (9) Acute and chronic respiratory failure (10) Status post tracheostomy (11) Abdominal distention (12) Ileus (13) Chronic vegetative state (14) Ventilator dependent Status: not improved RANDI LUNSFORD Aug 11, 2017 15:14
[2017-08-11 16:00] VITALS: BP 130/72
--- NOTE | 2017-08-11 17:14 | Infectious Diseases Prog Note ---
Assessment/Plan Assessment/Plan Assessment: Abd distention after removal of Cholecystostomy tube- 2ry to ileus. ? mild colitis/enteritis- LFts normal no biliary distentioin on CT -CT abd/p: No evidence of biloma or other complications relatable to stated clinical history of recent cholecystostomy removal. There is questionably some focal wall thickening and pericolonic infiltration involving the proximal ascending colon. This as well as proximal and distal fluid could indicate mild colitis changes. Leukocytosis- 2ry to above- resolved 05/17 CoNS contaminant- suspect contaminant, -08/07 Bcx 05/17 +; 08/09 Bcx p chronic cholecystitis s/p cholecystostomy tube Wnd Cx : GNR and Ucx : yeast : colonizer asthma/COPD HTN Dm2 Dementia CVA s/p vegetative state chronic resp failure vent/trach dependant dysphagia s/p G-tube seizure disorder SNF resident Plan: -Continue empiric Zosyn # 5/ 7 and DC IV Vancomcyin # 3 -GI and x f/u-?need to replace cholecystostomy tube -f/u cx -Monitor CBC, BMP, temperatures -trach/peg care -aspiration precautions Subjective Constitutional: Denies: no symptoms, fever, chills, fatigue, anorexia, drenching sweats, other Allergies: Coded Allergies: NO KNOWN DRUG ALLERGIES (Unverified Allergy, Unknown, 06/28/15) Objective Vital Signs Last 24 Hour Vital Signs Date Time Temp Pulse Resp B/P (MAP) Pulse Ox O2 Delivery O2 Flow Rate FiO2 08/11/17 16:49 67 15 28 08/11/17 16:00 28 08/11/17 16:00 99.1 71 19 130/72 100 Mechanical Ventilator 28 99.1 08/11/17 16:00 63 08/11/17 15:12 64 15 28 08/11/17 12:40 52 12 28 08/11/17 12:00 99.1 50 20 93/64 100 Mechanical Ventilator 28 99.1 08/11/17 12:00 28 08/11/17 12:00 53 08/11/17 10:38 68 20 28 08/11/17 09:39 61 12 28 08/11/17 08:00 98.2 71 18 106/68 99 Mechanical Ventilator 28 98.2 08/11/17 08:00 65 3/31/18 08:00 28 08/11/17 07:09 61 19 28 08/11/17 05:00 59 12 28 08/11/17 04:00 98.8 68 20 114/71 97 Mechanical Ventilator 28 98.8 08/11/17 04:00 28 08/11/17 03:36 67 08/11/17 03:32 68 13 28 08/11/17 01:38 84 14 28 08/11/17 00:00 97.8 83 16 108/66 98 Mechanical Ventilator 28 97.8 08/10/17 23:39 68 08/10/17 22:48 71 14 28 08/10/17 21:37 67 13 28 08/10/17 20:00 28 08/10/17 20:00 98.3 71 17 118/70 100 Mechanical Ventilator 28 98.3 08/10/17 19:55 62 08/10/17 19:10 62 15 28 Height (Feet): 5 Height (Inches): 10.00 Weight (Pounds): 240 HEENT: atraumatic Respiratory/Chest: normal breath sounds Cardiovascular: regularly irregular Abdomen: non distended Microbiology Date/Time Source Procedure Growth Status 08/09/17 20:00 Blood Blood Culture - Preliminary NO GROWTH AFTER 24 HOURS Resulted 08/09/17 19:40 Blood Blood Culture - Preliminary NO GROWTH AFTER 24 HOURS Resulted 08/08/17 23:45 Sacral Wound Gram Stain - Final Resulted 08/08/17 23:45 Wound Culture - Preliminary Gram Negative To Resulted Current Medications Medications (Trade) Dose Ordered Sig/Tony Route PRN Reason Start Time Stop Time Status Last Admin Dose Admin Acetaminophen (Tylenol Peds) 160 mg Q4H PRN ORAL Temp > 100 08/07/17 18:30 09/06/17 18:29 Albuterol Sulfate (Proventil) 2.5 mg Q3H PRN IN-LINE Shortness of Breath 08/07/17 18:30 08/12/17 18:29 Albuterol/ Ipratropium (Albuterol/ Ipratropium) 3 ml Q4H PRN HHN Persistent Shortness of Breath 08/07/17 18:30 08/12/17 18:29 Dextrose (Dextrose 50%) STAT PRN IV Hypoglycemia 08/07/17 18:30 09/06/17 18:29 Dextrose/ Electrolytes 1,000 ml @ 100 mls/hr Q10H IV 08/09/17 12:30 09/08/17 12:29 08/11/17 14:23 Heparin Sodium (Porcine) (Heparin 5000 units/ml) 5,000 units EVERY 12 HOURS SUBQ 08/07/17 21:00 09/06/17 20:59 08/11/17 09:17 Insulin Aspart (NovoLOG) EVERY 6 HOURS SUBQ 08/08/17 00:00 09/07/17 00:00 08/11/17 12:20 Lansoprazole (Prevacid) 30 mg DAILY GT 08/10/17 09:00 09/09/17 08:59 08/11/17 09:16 Levetiracetam (Keppra) 500 mg Q12HR GT 08/07/17 21:00 09/06/17 20:59 08/11/17 09:16 Magnesium Hydroxide (Mom) 30 ml DAILYPRN PRN ORAL Constipation 08/07/17 18:30 09/06/17 18:29 Metformin HCl (Glucophage) 1,000 mg Q12HR GT 08/07/17 21:00 09/06/17 20:59 08/11/17 09:16 Metoclopramide HCl (Reglan) 5 mg EVERY 6 HOURS GT 08/09/17 12:00 09/08/17 11:59 08/11/17 12:20 Morphine Sulfate (Morphine Sulfate) 2 mg Q8H PRN IVP Moderate to Severe Pain 08/07/17 18:30 08/14/17 18:29 Piperacillin Sod/ Tazobactam Sod 3.375 gm/Dextrose 110 ml @ 27.5 mls/hr EVERY 8 HOURS IVPB 08/07/17 22:00 08/14/17 21:59 08/11/17 14:22 Polyethylene Glycol (Miralax) 17 gm DAILYPRN PRN GT Constipation 08/07/17 18:30 09/06/17 18:29 Thiamine HCl (Vitamin B1) 100 mg DAILY GT 08/08/17 09:00 09/07/17 08:59 08/11/17 09:16 Vancomycin HCl (Vanco rx to dose) 1 ea DAILY PRN MISC Per rx protocol 08/09/17 14:30 09/08/17 14:29 Vancomycin HCl/ Dextrose 250 ml @ 166.667 mls/hr Q12HR@0400,1600 IVPB 08/11/17 15:00 08/16/17 14:59 08/11/17 15:26 Vitamin D (Vitamin D) 400 intlu DAILY ORAL 08/08/17 09:00 09/07/17 08:59 08/11/17 09:16 Esteban Payton MD Aug 11, 2017 17:14
[2017-08-11 20:00] VITALS: BP 113/69
[2017-08-12] VITALS: BP 116/73
[2017-08-12] MEDS: NovoLOG Insulin Flexpen SUBQ SCH ×5 (00:01→23:53)
[2017-08-12] MEDS: D5 1/2NS w/KCl 20mEq 1,000 ML IV SCH ×2 (00:30→11:10)
[2017-08-12 04:00] VITALS: BP 113/68
[2017-08-12 04:24] LABS: BASOPHILS % (AUTO) 0.6 % (0.0-2.0); EOSINOPHILS % (AUTO) 1.9 % (0.0-3.0); HEMATOCRIT 30.9 % (42.0-52.0); HEMOGLOBIN 10.3 G/DL (14.2-18.0); LYMPHOCYTES % (AUTO) 14.5 % (20.0-45.0); MEAN CORPUSCULAR VOLUME 89 FL (80-99); MONOCYTES % (AUTO) 7.2 % (1.0-10.0); NEUTROPHILS % (AUTO) 75.8 % (45.0-75.0); PLATELET COUNT 277 K/UL (150-450); RED BLOOD COUNT 3.48 M/UL (4.70-6.10); RED CELL DISTRIBUTION WIDTH 16.1 % (11.6-14.8); WHITE BLOOD COUNT 9.8 K/UL (4.8-10.8)
[2017-08-12 04:38] LABS: ANION GAP 14 mmol/L (5-15); BLOOD UREA NITROGEN 7 mg/dL (7-18); CALCIUM 8.5 MG/DL (8.5-10.1); CARBON DIOXIDE 20 MMOL/L (21-32); CHLORIDE 107 MMOL/L (98-107); POTASSIUM 3.8 MMOL/L (3.5-5.1); SODIUM 141 MMOL/L (136-145)
[2017-08-12] MEDS: Piperacillin/Tazobactam 3.375 GM in D5W 110 ML IVPB SCH ×3 (06:00→21:35)
[2017-08-12] MEDS: Metoclopramide 10mg/10ml Liq GT SCH ×5 (06:11→23:51)
[2017-08-12 08:00] VITALS: BP 104/72
[2017-08-12] MEDS: metFORMIN 500mg tab GT SCH ×2 (08:28→20:17)
[2017-08-12] MEDS: Vitamin D 400 INTLU TAB ORAL SCH (08:28)
[2017-08-12] MEDS: Thiamine 100mg tab GT SCH (08:28)
[2017-08-12] MEDS: levETIRAcetam 500mg/5ml Liquid GT SCH ×2 (08:29→20:18)
[2017-08-12] MEDS: Heparin 5000 units/ml inj SUBQ SCH ×2 (08:30→20:19)
--- NOTE | 2017-08-12 08:37 | General Progress Note ---
Assessment/Plan Problem List: (1) colonic ileus (2) Status post tracheostomy ICD Codes: Z93.0 - Tracheostomy status SNOMED: 92324886 (3) Dyspnea ICD Codes: R06.00 - Dyspnea, unspecified SNOMED: 466269922 (4) Esophagitis ICD Codes: K20.9 - Esophagitis, unspecified SNOMED: 87388672 (5) Ventilator dependent ICD Codes: Z99.11 - Dependence on respirator [ventilator] status SNOMED: 415197648 Assessment/Plan GTF fu labs daily exam Subjective ROS Limited/Unobtainable: No Allergies: Coded Allergies: NO KNOWN DRUG ALLERGIES (Unverified Allergy, Unknown, 06/28/15) Objective Last 24 Hour Vital Signs Date Time Temp Pulse Resp B/P (MAP) Pulse Ox O2 Delivery O2 Flow Rate FiO2 08/12/17 08:00 98.7 68 17 104/72 100 Mechanical Ventilator 28 98.7 08/12/17 08:00 28 08/12/17 06:46 59 12 28 08/12/17 05:29 58 12 28 08/12/17 04:00 98.7 73 17 113/68 100 Mechanical Ventilator 28 98.7 08/12/17 04:00 28 08/12/17 03:37 70 08/12/17 03:07 79 15 28 08/12/17 01:37 59 14 28 08/12/17 00:00 98.7 68 16 116/73 100 Mechanical Ventilator 28 98.7 08/12/17 00:00 69 08/12/17 00:00 28 08/11/17 23:37 62 16 28 08/11/17 21:00 68 15 28 08/11/17 20:28 72 16 28 08/11/17 20:00 28 08/11/17 20:00 98.5 76 19 113/69 100 Mechanical Ventilator 28 98.5 08/11/17 19:43 74 08/11/17 16:49 67 15 28 08/11/17 16:00 28 08/11/17 16:00 99.1 71 19 130/72 100 Mechanical Ventilator 28 99.1 08/11/17 16:00 63 08/11/17 15:12 64 15 28 08/11/17 12:40 52 12 28 08/11/17 12:00 99.1 50 20 93/64 100 Mechanical Ventilator 28 99.1 08/11/17 12:00 28 08/11/17 12:00 53 08/11/17 10:38 68 20 28 08/11/17 09:39 61 12 28 Intake and Output 08/11/17 08/12/17 19:00 07:00 Intake Total 2131.667 ml 1870.7 ml Output Total 300 ml 1000 ml Balance 1831.667 ml 870.7 ml Intake Free Water 500 ml IV Total 1331.667 ml 1280.7 ml Tube Feeding 300 ml 590 ml Output Urine Total 300 ml 800 ml Stool Total 200 ml # Bowel Movements 50 Laboratory Tests 08/12/17 03:50: White Blood Count 9.8, Red Blood Count 3.48L, Hemoglobin 10.3L, Hematocrit 30.9L , Mean Corpuscular Volume 89, Mean Corpuscular Hemoglobin 29.8, Mean Corpuscular Hemoglobin Concent 33.4, Red Cell Distribution Width 16.1H, Platelet Count 277, Mean Platelet Volume 8.8, Neutrophils (%) (Auto) 75.8H, Lymphocytes (%) (Auto) 14.5L, Monocytes (%) (Auto) 7.2, Eosinophils (%) (Auto) 1.9, Basophils (%) (Auto) 0.6, Sodium Level 141, Potassium Level 3.8, Chloride Level 107, Carbon Dioxide Level 20L, Anion Gap 14, Blood Urea Nitrogen 7, Creatinine 1.0, Estimat Glomerular Filtration Rate > 60, Glucose Level 144H, Calcium Level 8.5 Height (Feet): 5 Height (Inches): 10.00 Weight (Pounds): 240 General Appearance: no apparent distress EENT: normal ENT inspection Neck: supple Cardiovascular: normal rate Respiratory/Chest: decreased breath sounds Abdomen: normal bowel sounds, non tender, soft Extremities: non-tender JOLLY SANON Aug 12, 2017 08:37
[2017-08-12] MEDS ORDERED: NS 275ml ONE (10:28)
[2017-08-12] MEDS ORDERED: Tubing IV Secondary IV ONE (10:28)
--- NOTE | 2017-08-12 11:59 | Pulmonolgy Critical Care Note ---
Critical Care - Asmt/Plan Problems: (1) Sepsis (2) Diabetes mellitus, type II (3) COPD (chronic obstructive pulmonary disease) (4) Chronic complete quadriplegia (5) Status post tracheostomy (6) Cerebral vascular disease (7) Respiratory failure Respiratory: monitor respiratory rate, adjust FIO2, CXR Cardiac: continue to monitor HR/BP Renal: F/U I&O, keep IV fluid Infectious Disease: check cultures Gastrointestinal: continue feedings/current rate Endocrine: monitor blood sugar, continue sliding scale insulin Hematologic: monitor H/H, transfuse if hgb<8.5 Neurologic: PRN Ativan, keep patient comfortable Affect: PRN ativan Prophylaxis: Protonix 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, 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, 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 Discussed with: nurses, consultants, telephonic nurse case managermanager ed - Objective Last 24 Hour Vital Signs Date Time Temp Pulse Resp B/P (MAP) Pulse Ox O2 Delivery O2 Flow Rate FiO2 08/12/17 10:47 48 12 28 08/12/17 08:48 66 18 28 08/12/17 08:00 68 08/12/17 08:00 98.7 68 17 104/72 100 Mechanical Ventilator 28 98.7 08/12/17 08:00 28 08/12/17 06:46 59 12 28 08/12/17 05:29 58 12 28 08/12/17 04:00 98.7 73 17 113/68 100 Mechanical Ventilator 28 98.7 08/12/17 04:00 28 08/12/17 03:37 70 08/12/17 03:07 79 15 28 08/12/17 01:37 59 14 28 08/12/17 00:00 98.7 68 16 116/73 100 Mechanical Ventilator 28 98.7 08/12/17 00:00 69 08/12/17 00:00 28 08/11/17 23:37 62 16 28 08/11/17 21:00 68 15 28 08/11/17 20:28 72 16 28 08/11/17 20:00 28 08/11/17 20:00 98.5 76 19 113/69 100 Mechanical Ventilator 28 98.5 08/11/17 19:43 74 08/11/17 16:49 67 15 28 08/11/17 16:00 28 08/11/17 16:00 99.1 71 19 130/72 100 Mechanical Ventilator 28 99.1 08/11/17 16:00 63 08/11/17 15:12 64 15 28 08/11/17 12:40 52 12 28 08/11/17 12:00 99.1 50 20 93/64 100 Mechanical Ventilator 28 99.1 08/11/17 12:00 28 08/11/17 12:00 53 Status: obtunded Condition: critical HEENT: atraumatic Neck: full ROM Heart: HR/BP stable, HR/BP unstable Abdomen: soft, non-tender Extremities: no C/C/E, edema Decubiti: stage Micro: Microbiology Date/Time Source Procedure Growth Status 08/09/17 20:00 Blood Blood Culture - Preliminary NO GROWTH AFTER 48 HOURS Resulted 08/09/17 19:40 Blood Blood Culture - Preliminary NO GROWTH AFTER 48 HOURS Resulted Accucheck: 167 Critical Care - Subjective ROS Limited/Unobtainable: Yes Interval Events: tolerating diet, afebrile Condition: critical FI02: 28 Vent Support Breath Rate: 12 Vent Support Mode: AC Vent Tidal Volume: 600 Sputum Amount: Small PEEP: 5.0 PIP: 26 Tube Feeding Amount: 50 I&O: Intake and Output 08/11/17 08/12/17 19:00 07:00 Intake Total 2131.667 ml 1870.7 ml Output Total 300 ml 1000 ml Balance 1831.667 ml 870.7 ml Intake Free Water 500 ml IV Total 1331.667 ml 1280.7 ml Tube Feeding 300 ml 590 ml Output Urine Total 300 ml 800 ml Stool Total 200 ml # Bowel Movements 50 CXR: no new findings Labs: Laboratory Tests Test 08/12/17 03:50 White Blood Count 9.8 K/UL (4.8-10.8) Red Blood Count 3.48 M/UL (4.70-6.10) L Hemoglobin 10.3 G/DL (14.2-18.0) L Hematocrit 30.9 % (42.0-52.0) L Mean Corpuscular Volume 89 FL (80-99) Mean Corpuscular Hemoglobin 29.8 PG (27.0-31.0) Mean Corpuscular Hemoglobin Concent 33.4 G/DL (32.0-36.0) Red Cell Distribution Width 16.1 % (11.6-14.8) H Platelet Count 277 K/UL (150-450) Mean Platelet Volume 8.8 FL (6.5-10.1) Neutrophils (%) (Auto) 75.8 % (45.0-75.0) H Lymphocytes (%) (Auto) 14.5 % (20.0-45.0) L Monocytes (%) (Auto) 7.2 % (1.0-10.0) Eosinophils (%) (Auto) 1.9 % (0.0-3.0) Basophils (%) (Auto) 0.6 % (0.0-2.0) Sodium Level 141 MMOL/L (136-145) Potassium Level 3.8 MMOL/L (3.5-5.1) Chloride Level 107 MMOL/L (98-107) Carbon Dioxide Level 20 MMOL/L (21-32) L Anion Gap 14 mmol/L (5-15) Blood Urea Nitrogen 7 mg/dL (7-18) Creatinine 1.0 MG/DL (0.55-1.30) Estimat Glomerular Filtration Rate > 60 mL/min (>60) Glucose Level 144 MG/DL (74-106) H Calcium Level 8.5 MG/DL (8.5-10.1) Suzette Wallace MD Aug 12, 2017 11:59
[2017-08-12 12:00] VITALS: BP 116/66
[2017-08-12 16:00] VITALS: BP 113/76
[2017-08-12 20:00] VITALS: BP 112/70
[2017-08-13] VITALS: BP 108/65
[2017-08-13 04:00] VITALS: BP 107/72
[2017-08-13] MEDS: Piperacillin/Tazobactam 3.375 GM in D5W 110 ML IVPB SCH ×3 (05:29→21:40)
[2017-08-13] MEDS: Metoclopramide 10mg/10ml Liq GT SCH (05:29)
[2017-08-13] MEDS: NovoLOG Insulin Flexpen SUBQ SCH ×4 (05:31→23:45)
[2017-08-13 05:49] LABS: BASOPHILS % (AUTO) 0.9 % (0.0-2.0); EOSINOPHILS % (AUTO) 2.5 % (0.0-3.0); HEMATOCRIT 30.9 % (42.0-52.0); HEMOGLOBIN 9.7 G/DL (14.2-18.0); LYMPHOCYTES % (AUTO) 16.8 % (20.0-45.0); MEAN CORPUSCULAR VOLUME 90 FL (80-99); MONOCYTES % (AUTO) 7.7 % (1.0-10.0); PLATELET COUNT 274 K/UL (150-450); RED BLOOD COUNT 3.44 M/UL (4.70-6.10); RED CELL DISTRIBUTION WIDTH 15.7 % (11.6-14.8); WHITE BLOOD COUNT 9.3 K/UL (4.8-10.8)
[2017-08-13 06:18] LABS: ALANINE AMINOTRANSFERASE 34 U/L (12-78); ALBUMIN 2.6 G/DL (3.4-5.0); ALBUMIN/GLOBULIN RATIO 0.6 (1.0-2.7); ALKALINE PHOSPHATASE 52 U/L (46-116); ASPARTATE AMINO TRANSFERASE 13 U/L (15-37); BILIRUBIN,TOTAL 0.3 MG/DL (0.2-1.0); BLOOD UREA NITROGEN 11 mg/dL (7-18); CALCIUM 9.1 MG/DL (8.5-10.1); CARBON DIOXIDE 21 MMOL/L (21-32)
[2017-08-13 07:02] LABS: CHLORIDE 108 MMOL/L (98-107); POTASSIUM 4.3 MMOL/L (3.5-5.1); SODIUM 142 MMOL/L (136-145)
[2017-08-13 07:04] LABS: ANION GAP 13 mmol/L (5-15)
[2017-08-13 08:45] VITALS: BP 103/67
[2017-08-13] MEDS ORDERED: NS 275ml ONE (09:13)
--- NOTE | 2017-08-13 09:21 | General Progress Note ---
Assessment/Plan Problem List: (1) colonic ileus (2) Status post tracheostomy ICD Codes: Z93.0 - Tracheostomy status SNOMED: 27833520 (3) Dyspnea ICD Codes: R06.00 - Dyspnea, unspecified SNOMED: 457852989 (4) Esophagitis ICD Codes: K20.9 - Esophagitis, unspecified SNOMED: 66262956 (5) Ventilator dependent ICD Codes: Z99.11 - Dependence on respirator [ventilator] status SNOMED: 187651745 Assessment/Plan GTF fu labs daily exam Subjective ROS Limited/Unobtainable: No Allergies: Coded Allergies: NO KNOWN DRUG ALLERGIES (Unverified Allergy, Unknown, 06/28/15) Objective Last 24 Hour Vital Signs Date Time Temp Pulse Resp B/P (MAP) Pulse Ox O2 Delivery O2 Flow Rate FiO2 08/13/17 09:02 71 19 28 08/13/17 07:25 57 15 28 08/13/17 05:04 72 15 28 08/13/17 04:04 76 08/13/17 04:00 28 08/13/17 04:00 97.9 68 15 107/72 99 Mechanical Ventilator 28 97.9 08/13/17 03:14 72 16 28 08/13/17 01:35 74 16 28 08/13/17 00:00 28 08/13/17 00:00 98.2 69 17 108/65 100 Mechanical Ventilator 28 98.2 08/12/17 23:28 68 08/12/17 23:15 73 16 28 08/12/17 21:04 66 16 28 08/12/17 20:42 66 16 Mechanical Ventilator 28 08/12/17 20:00 28 08/12/17 20:00 98.6 66 16 112/70 100 Mechanical Ventilator 28 98.6 08/12/17 19:05 62 08/12/17 19:01 66 14 28 08/12/17 16:42 59 15 28 08/12/17 16:00 98.9 63 17 113/76 100 Mechanical Ventilator 28 98.9 08/12/17 16:00 58 08/12/17 16:00 28 08/12/17 14:42 62 27 28 08/12/17 12:49 63 16 28 08/12/17 12:00 28 08/12/17 12:00 49 08/12/17 12:00 99.0 59 18 116/66 100 Mechanical Ventilator 28 99.0 08/12/17 10:47 48 12 28 Intake and Output 08/12/17 08/13/17 19:00 07:00 Intake Total 1562.5 ml 563.7 ml Output Total 700 ml 900 ml Balance 862.5 ml -336.3 ml Intake Free Water 500 ml 50 ml IV Total 592.5 ml 123.7 ml Tube Feeding 470 ml 340 ml Other 50 ml Output Urine Total 600 ml 900 ml Stool Total 100 ml # Bowel Movements 100 Laboratory Tests 08/13/17 05:00: White Blood Count 9.3, Red Blood Count 3.44L, Hemoglobin 9.7L, Hematocrit 30.9L , Mean Corpuscular Volume 90, Mean Corpuscular Hemoglobin 28.4, Mean Corpuscular Hemoglobin Concent 31.6L, Red Cell Distribution Width 15.7H, Platelet Count 274, Mean Platelet Volume 8.6, Neutrophils (%) (Auto) 72.0, Lymphocytes (%) (Auto) 16.8L, Monocytes (%) (Auto) 7.7, Eosinophils (%) (Auto) 2.5, Basophils (%) (Auto) 0.9, Sodium Level 142, Potassium Level 4.3, Chloride Level 108H, Carbon Dioxide Level 21, Anion Gap 13, Blood Urea Nitrogen 11, Creatinine 1.0, Estimat Glomerular Filtration Rate > 60, Glucose Level 124H, Calcium Level 9.1, Total Bilirubin 0.3, Aspartate Amino Transf (AST/SGOT) 13L, Alanine Aminotransferase (ALT/SGPT) 34, Alkaline Phosphatase 52, Pro-B-Type Natriuretic Peptide 422H, Total Protein 7.3, Albumin 2.6L, Globulin 4.7, Albumin /Globulin Ratio 0.6L Height (Feet): 5 Height (Inches): 10.00 Weight (Pounds): 240 General Appearance: confused EENT: normal ENT inspection Neck: supple Cardiovascular: normal rate Respiratory/Chest: decreased breath sounds Abdomen: normal bowel sounds, non tender, soft Extremities: non-tender JOLLY SANON Aug 13, 2017 09:21
[2017-08-13] MEDS: Thiamine 100mg tab GT SCH (09:36)
[2017-08-13] MEDS: Vitamin D 400 INTLU TAB ORAL SCH (09:36)
[2017-08-13] MEDS: levETIRAcetam 500mg/5ml Liquid GT SCH ×2 (09:36→20:23)
[2017-08-13] MEDS: metFORMIN 500mg tab GT SCH ×2 (09:36→20:22)
[2017-08-13] MEDS: Heparin 5000 units/ml inj SUBQ SCH ×2 (09:39→20:25)
--- NOTE | 2017-08-13 10:44 | Pulmonology Progress Note ---
Assessment/Plan Problems: (1) Fever (2) Ventilator dependent (3) Chronic vegetative state (4) Intractable diarrhea (5) Chronic complete quadriplegia (6) Diabetes mellitus, type II (7) Seizure disorder (8) Cerebral vascular disease Assessment/Plan dc reglan, dc Miralax and MOM, ( was PRN and never given add lomotil today is the last day of abx titrate vent setting titrate fio2 will DC to fpc once the diarrhea subsides. Subjective ROS Limited/Unobtainable: No Constitutional: Reports: no symptoms HEENT: Repors: no symptoms Respiratory: Reports: no symptoms Allergies: Coded Allergies: NO KNOWN DRUG ALLERGIES (Unverified Allergy, Unknown, 06/28/15) Objective Last 24 Hour Vital Signs Date Time Temp Pulse Resp B/P (MAP) Pulse Ox O2 Delivery O2 Flow Rate FiO2 08/13/17 09:02 71 19 28 08/13/17 08:45 97.6 63 16 103/67 100 Mechanical Ventilator 28 97.6 08/13/17 08:00 28 08/13/17 07:25 57 15 28 08/13/17 05:04 72 15 28 08/13/17 04:04 76 08/13/17 04:00 28 08/13/17 04:00 97.9 68 15 107/72 99 Mechanical Ventilator 28 97.9 08/13/17 03:14 72 16 28 08/13/17 01:35 74 16 28 08/13/17 00:00 28 08/13/17 00:00 98.2 69 17 108/65 100 Mechanical Ventilator 28 98.2 08/12/17 23:28 68 08/12/17 23:15 73 16 28 08/12/17 21:04 66 16 28 08/12/17 20:42 66 16 Mechanical Ventilator 28 08/12/17 20:00 28 08/12/17 20:00 98.6 66 16 112/70 100 Mechanical Ventilator 28 98.6 08/12/17 19:05 62 08/12/17 19:01 66 14 28 08/12/17 16:42 59 15 28 08/12/17 16:00 98.9 63 17 113/76 100 Mechanical Ventilator 28 98.9 08/12/17 16:00 58 08/12/17 16:00 28 08/12/17 14:42 62 27 28 08/12/17 12:49 63 16 28 08/12/17 12:00 28 08/12/17 12:00 49 08/12/17 12:00 99.0 59 18 116/66 100 Mechanical Ventilator 28 99.0 08/12/17 10:47 48 12 28 Intake and Output 08/12/17 08/13/17 19:00 07:00 Intake Total 1562.5 ml 563.7 ml Output Total 700 ml 900 ml Balance 862.5 ml -336.3 ml Intake Free Water 500 ml 50 ml IV Total 592.5 ml 123.7 ml Tube Feeding 470 ml 340 ml Other 50 ml Output Urine Total 600 ml 900 ml Stool Total 100 ml # Bowel Movements 100 General Appearance: WD/WN HEENT: status post trach Respiratory/Chest: chest wall non-tender, lungs clear Abdomen: soft, non tender Extremities: no cyanosis Skin: no rash, no lesions Laboratory Tests 08/13/17 05:00: White Blood Count 9.3, Red Blood Count 3.44L, Hemoglobin 9.7L, Hematocrit 30.9L , Mean Corpuscular Volume 90, Mean Corpuscular Hemoglobin 28.4, Mean Corpuscular Hemoglobin Concent 31.6L, Red Cell Distribution Width 15.7H, Platelet Count 274, Mean Platelet Volume 8.6, Neutrophils (%) (Auto) 72.0, Lymphocytes (%) (Auto) 16.8L, Monocytes (%) (Auto) 7.7, Eosinophils (%) (Auto) 2.5, Basophils (%) (Auto) 0.9, Sodium Level 142, Potassium Level 4.3, Chloride Level 108H, Carbon Dioxide Level 21, Anion Gap 13, Blood Urea Nitrogen 11, Creatinine 1.0, Estimat Glomerular Filtration Rate > 60, Glucose Level 124H, Calcium Level 9.1, Total Bilirubin 0.3, Aspartate Amino Transf (AST/SGOT) 13L, Alanine Aminotransferase (ALT/SGPT) 34, Alkaline Phosphatase 52, Pro-B-Type Natriuretic Peptide 422H, Total Protein 7.3, Albumin 2.6L, Globulin 4.7, Albumin /Globulin Ratio 0.6L Current Medications Medications (Trade) Dose Ordered Sig/Tony Route PRN Reason Start Time Stop Time Status Last Admin Dose Admin Acetaminophen (Tylenol Peds) 160 mg Q4H PRN ORAL Temp > 100 08/07/17 18:30 09/06/17 18:29 Dextrose (Dextrose 50%) STAT PRN IV Hypoglycemia 08/07/17 18:30 09/06/17 18:29 Heparin Sodium (Porcine) (Heparin 5000 units/ml) 5,000 units EVERY 12 HOURS SUBQ 08/07/17 21:00 09/06/17 20:59 08/13/17 09:39 Insulin Aspart (NovoLOG) EVERY 6 HOURS SUBQ 08/08/17 00:00 09/07/17 00:00 08/13/17 05:31 Lansoprazole (Prevacid) 30 mg DAILY GT 08/10/17 09:00 09/09/17 08:59 08/13/17 09:36 Levetiracetam (Keppra) 500 mg Q12HR GT 08/07/17 21:00 09/06/17 20:59 08/13/17 09:36 Magnesium Hydroxide (Mom) 30 ml DAILYPRN PRN ORAL Constipation 08/07/17 18:30 09/06/17 18:29 Metformin HCl (Glucophage) 1,000 mg Q12HR GT 08/07/17 21:00 09/06/17 20:59 08/13/17 09:36 Metoclopramide HCl (Reglan) 5 mg EVERY 6 HOURS GT 08/09/17 12:00 09/08/17 11:59 08/13/17 05:29 Morphine Sulfate (Morphine Sulfate) 2 mg Q8H PRN IVP Moderate to Severe Pain 08/07/17 18:30 08/14/17 18:29 Piperacillin Sod/ Tazobactam Sod 3.375 gm/Dextrose 110 ml @ 27.5 mls/hr EVERY 8 HOURS IVPB 08/07/17 22:00 08/14/17 21:59 08/13/17 05:29 Polyethylene Glycol (Miralax) 17 gm DAILYPRN PRN GT Constipation 08/07/17 18:30 09/06/17 18:29 Thiamine HCl (Vitamin B1) 100 mg DAILY GT 08/08/17 09:00 09/07/17 08:59 08/13/17 09:36 Vitamin D (Vitamin D) 400 intlu DAILY ORAL 08/08/17 09:00 09/07/17 08:59 08/13/17 09:36 Suzette Wallace MD Aug 13, 2017 10:44
[2017-08-13] MEDS: Lomotil 2.5mg tab ORAL PRN ×2 (11:16→20:22)
--- NOTE | 2017-08-13 11:36 | Infectious Diseases Prog Note ---
Assessment/Plan Assessment/Plan Assessment: . Leukocytosis , SP 05/17 CoNS contaminant- suspect contaminant, -08/07 Bcx 05/17 +; 08/09 Bcx p chronic cholecystitis s/p cholecystostomy tube Wnd Cx : p-linda Jarod growth colonizer Ucx : yeast : colonizer Abd distention 2ry to ileus. ? GI following -CT abd/p: No evidence of biloma or other complications relatable to stated clinical history of recent cholecystostomy removal. There is questionably some focal wall thickening and pericolonic infiltration involving the proximal ascending colon. This as well as proximal and distal fluid could indicate mild colitis changes asthma/COPD HTN Dm2 Dementia CVA s/p vegetative state chronic resp failure vent/trach dependant dysphagia s/p G-tube seizure disorder SNF resident Plan: - DC Zosyn # / 08/11 SP IV Vancomcyin # 3 -f/u cx -Monitor CBC, BMP, temperatures -trach/peg care -aspiration precautions Subjective Constitutional: Denies: no symptoms, fever, chills, fatigue, anorexia, drenching sweats, other Allergies: Coded Allergies: NO KNOWN DRUG ALLERGIES (Unverified Allergy, Unknown, 06/28/15) Objective Vital Signs Last 24 Hour Vital Signs Date Time Temp Pulse Resp B/P (MAP) Pulse Ox O2 Delivery O2 Flow Rate FiO2 08/13/17 09:02 71 19 28 08/13/17 08:45 97.6 63 16 103/67 100 Mechanical Ventilator 28 97.6 08/13/17 08:00 28 08/13/17 07:25 57 15 28 08/13/17 05:04 72 15 28 08/13/17 04:04 76 08/13/17 04:00 28 08/13/17 04:00 97.9 68 15 107/72 99 Mechanical Ventilator 28 97.9 08/13/17 03:14 72 16 28 08/13/17 01:35 74 16 28 08/13/17 00:00 28 08/13/17 00:00 98.2 69 17 108/65 100 Mechanical Ventilator 28 98.2 08/12/17 23:28 68 08/12/17 23:15 73 16 28 08/12/17 21:04 66 16 28 08/12/17 20:42 66 16 Mechanical Ventilator 28 08/12/17 20:00 28 08/12/17 20:00 98.6 66 16 112/70 100 Mechanical Ventilator 28 98.6 08/12/17 19:05 62 08/12/17 19:01 66 14 28 08/12/17 16:42 59 15 28 08/12/17 16:00 98.9 63 17 113/76 100 Mechanical Ventilator 28 98.9 08/12/17 16:00 58 08/12/17 16:00 28 08/12/17 14:42 62 27 28 08/12/17 12:49 63 16 28 08/12/17 12:00 28 08/12/17 12:00 49 08/12/17 12:00 99.0 59 18 116/66 100 Mechanical Ventilator 28 99.0 Height (Feet): 5 Height (Inches): 10.00 Weight (Pounds): 240 HEENT: atraumatic Respiratory/Chest: normal breath sounds Cardiovascular: no gallop/murmur Abdomen: no organomegaly Laboratory Tests Test 08/13/17 05:00 White Blood Count 9.3 K/UL (4.8-10.8) Red Blood Count 3.44 M/UL (4.70-6.10) L Hemoglobin 9.7 G/DL (14.2-18.0) L Hematocrit 30.9 % (42.0-52.0) L Mean Corpuscular Volume 90 FL (80-99) Mean Corpuscular Hemoglobin 28.4 PG (27.0-31.0) Mean Corpuscular Hemoglobin Concent 31.6 G/DL (32.0-36.0) L Red Cell Distribution Width 15.7 % (11.6-14.8) H Platelet Count 274 K/UL (150-450) Mean Platelet Volume 8.6 FL (6.5-10.1) Neutrophils (%) (Auto) 72.0 % (45.0-75.0) Lymphocytes (%) (Auto) 16.8 % (20.0-45.0) L Monocytes (%) (Auto) 7.7 % (1.0-10.0) Eosinophils (%) (Auto) 2.5 % (0.0-3.0) Basophils (%) (Auto) 0.9 % (0.0-2.0) Sodium Level 142 MMOL/L (136-145) Potassium Level 4.3 MMOL/L (3.5-5.1) Chloride Level 108 MMOL/L (98-107) H Carbon Dioxide Level 21 MMOL/L (21-32) Anion Gap 13 mmol/L (5-15) Blood Urea Nitrogen 11 mg/dL (7-18) Creatinine 1.0 MG/DL (0.55-1.30) Estimat Glomerular Filtration Rate > 60 mL/min (>60) Glucose Level 124 MG/DL (74-106) H Calcium Level 9.1 MG/DL (8.5-10.1) Total Bilirubin 0.3 MG/DL (0.2-1.0) Aspartate Amino Transf (AST/SGOT) 13 U/L (15-37) L Alanine Aminotransferase (ALT/SGPT) 34 U/L (12-78) Alkaline Phosphatase 52 U/L (46-116) Pro-B-Type Natriuretic Peptide 422 pg/mL (0-125) H Total Protein 7.3 G/DL (6.4-8.2) Albumin 2.6 G/DL (3.4-5.0) L Globulin 4.7 g/dL Albumin/Globulin Ratio 0.6 (1.0-2.7) L Current Medications Medications (Trade) Dose Ordered Sig/Tony Route PRN Reason Start Time Stop Time Status Last Admin Dose Admin Acetaminophen (Tylenol Peds) 160 mg Q4H PRN ORAL Temp > 100 08/07/17 18:30 09/06/17 18:29 Dextrose (Dextrose 50%) STAT PRN IV Hypoglycemia 08/07/17 18:30 09/06/17 18:29 Diphenoxylate HCl/ Atropine (Lomotil) 2.5 mg Q4H PRN ORAL Diarrhea 08/13/17 10:45 09/12/17 10:44 08/13/17 11:16 Heparin Sodium (Porcine) (Heparin 5000 units/ml) 5,000 units EVERY 12 HOURS SUBQ 08/07/17 21:00 09/06/17 20:59 08/13/17 09:39 Insulin Aspart (NovoLOG) EVERY 6 HOURS SUBQ 08/08/17 00:00 09/07/17 00:00 08/13/17 11:30 Lansoprazole (Prevacid) 30 mg DAILY GT 08/10/17 09:00 09/09/17 08:59 08/13/17 09:36 Levetiracetam (Keppra) 500 mg Q12HR GT 08/07/17 21:00 09/06/17 20:59 08/13/17 09:36 Metformin HCl (Glucophage) 1,000 mg Q12HR GT 08/07/17 21:00 09/06/17 20:59 08/13/17 09:36 Morphine Sulfate (Morphine Sulfate) 2 mg Q8H PRN IVP Moderate to Severe Pain 08/07/17 18:30 08/14/17 18:29 Piperacillin Sod/ Tazobactam Sod 3.375 gm/Dextrose 110 ml @ 27.5 mls/hr EVERY 8 HOURS IVPB 08/07/17 22:00 08/14/17 21:59 08/13/17 05:29 Thiamine HCl (Vitamin B1) 100 mg DAILY GT 08/08/17 09:00 09/07/17 08:59 08/13/17 09:36 Vitamin D (Vitamin D) 400 intlu DAILY ORAL 08/08/17 09:00 09/07/17 08:59 08/13/17 09:36 Esteban Payton MD Aug 13, 2017 11:36
[2017-08-13 11:45] VITALS: BP 113/73
--- NOTE | 2017-08-13 12:16 | Diagnostic Imaging Report ---
Indication: Dyspnea Technique: One view of the chest Comparison: 08/07/2017 Findings: Patient is rotated to the right. Scarring or atelectasis is again seen at the left lung base and right perihilar region. The heart is mildly enlarged. Tracheostomy remains. Findings are unchanged Impression: Unchanged, over 6 days, findings as above.
--- NOTE | 2017-08-13 12:56 | General Surgery Progress Note ---
General Surgery-Progress Note Subjective Symptoms: tolerating diet, BM Additional Comments no acute events. abd soft. tolerating feeds. good stool output Objective Last 24 Hour Vital Signs Date Time Temp Pulse Resp B/P (MAP) Pulse Ox O2 Delivery O2 Flow Rate FiO2 08/13/17 11:56 76 14 28 08/13/17 09:02 71 19 28 08/13/17 08:45 97.6 63 16 103/67 100 Mechanical Ventilator 28 97.6 08/13/17 08:00 28 08/13/17 07:25 57 15 28 08/13/17 05:04 72 15 28 08/13/17 04:04 76 08/13/17 04:00 28 08/13/17 04:00 97.9 68 15 107/72 99 Mechanical Ventilator 28 97.9 08/13/17 03:14 72 16 28 08/13/17 01:35 74 16 28 08/13/17 00:00 28 08/13/17 00:00 98.2 69 17 108/65 100 Mechanical Ventilator 28 98.2 08/12/17 23:28 68 08/12/17 23:15 73 16 28 08/12/17 21:04 66 16 28 08/12/17 20:42 66 16 Mechanical Ventilator 28 08/12/17 20:00 28 08/12/17 20:00 98.6 66 16 112/70 100 Mechanical Ventilator 28 98.6 08/12/17 19:05 62 08/12/17 19:01 66 14 28 08/12/17 16:42 59 15 28 08/12/17 16:00 98.9 63 17 113/76 100 Mechanical Ventilator 28 98.9 08/12/17 16:00 58 08/12/17 16:00 28 08/12/17 14:42 62 27 28 I&O Intake and Output 08/12/17 08/13/17 19:00 07:00 Intake Total 1562.5 ml 563.7 ml Output Total 700 ml 900 ml Balance 862.5 ml -336.3 ml Intake Free Water 500 ml 50 ml IV Total 592.5 ml 123.7 ml Tube Feeding 470 ml 340 ml Other 50 ml Output Urine Total 600 ml 900 ml Stool Total 100 ml # Bowel Movements 100 Drains: none Cardiovascular: RSR Respiratory: clear Abdomen: soft, distended, non-tender, present bowel sounds Extremities: no tenderness, no cyanosis Laboratory Tests Test 08/13/17 05:00 White Blood Count 9.3 K/UL (4.8-10.8) Red Blood Count 3.44 M/UL (4.70-6.10) L Hemoglobin 9.7 G/DL (14.2-18.0) L Hematocrit 30.9 % (42.0-52.0) L Mean Corpuscular Volume 90 FL (80-99) Mean Corpuscular Hemoglobin 28.4 PG (27.0-31.0) Mean Corpuscular Hemoglobin Concent 31.6 G/DL (32.0-36.0) L Red Cell Distribution Width 15.7 % (11.6-14.8) H Platelet Count 274 K/UL (150-450) Mean Platelet Volume 8.6 FL (6.5-10.1) Neutrophils (%) (Auto) 72.0 % (45.0-75.0) Lymphocytes (%) (Auto) 16.8 % (20.0-45.0) L Monocytes (%) (Auto) 7.7 % (1.0-10.0) Eosinophils (%) (Auto) 2.5 % (0.0-3.0) Basophils (%) (Auto) 0.9 % (0.0-2.0) Sodium Level 142 MMOL/L (136-145) Potassium Level 4.3 MMOL/L (3.5-5.1) Chloride Level 108 MMOL/L (98-107) H Carbon Dioxide Level 21 MMOL/L (21-32) Anion Gap 13 mmol/L (5-15) Blood Urea Nitrogen 11 mg/dL (7-18) Creatinine 1.0 MG/DL (0.55-1.30) Estimat Glomerular Filtration Rate > 60 mL/min (>60) Glucose Level 124 MG/DL (74-106) H Calcium Level 9.1 MG/DL (8.5-10.1) Total Bilirubin 0.3 MG/DL (0.2-1.0) Aspartate Amino Transf (AST/SGOT) 13 U/L (15-37) L Alanine Aminotransferase (ALT/SGPT) 34 U/L (12-78) Alkaline Phosphatase 52 U/L (46-116) Pro-B-Type Natriuretic Peptide 422 pg/mL (0-125) H Total Protein 7.3 G/DL (6.4-8.2) Albumin 2.6 G/DL (3.4-5.0) L Globulin 4.7 g/dL Albumin/Globulin Ratio 0.6 (1.0-2.7) L Plan Problems: (1) Abdominal distention Assessment & Plan: 46M multiple medical problems who was in nursing facility had prior cholecystostomy tube that was pulled. thought to be more distended after tube pulled. exam benign. afebrile, labs okay. imaging reviewed. -seems to be okay without sequela since cholecystostomy removed. would have preferred to have cholangiogram before tube removed but since patient pulled there is nothing we can do now. no obstruction or ponce noted at this time. LFT's okay. -mild bowel distention but tolerating feeds and good output. -no acute surgical intervention needed. -feeds as tolerated. thank you for this consultation. will follow with recs. Steve Franks Aug 13, 2017 12:56
[2017-08-13 16:15] VITALS: BP 110/70
[2017-08-13 20:00] VITALS: BP 111/77
[2017-08-14] VITALS: BP 112/72
[2017-08-14 04:00] VITALS: BP 115/75
[2017-08-14 06:28] LABS: BASOPHILS % (AUTO) 0.6 % (0.0-2.0); HEMATOCRIT 31.7 % (42.0-52.0); HEMOGLOBIN 10.4 G/DL (14.2-18.0); LYMPHOCYTES % (AUTO) 16.6 % (20.0-45.0); MEAN CORPUSCULAR VOLUME 89 FL (80-99); MONOCYTES % (AUTO) 8.2 % (1.0-10.0); NEUTROPHILS % (AUTO) 71.7 % (45.0-75.0); PLATELET COUNT 293 K/UL (150-450); RED BLOOD COUNT 3.54 M/UL (4.70-6.10); RED CELL DISTRIBUTION WIDTH 15.3 % (11.6-14.8); WHITE BLOOD COUNT 8.1 K/UL (4.8-10.8)
[2017-08-14] MEDS: NovoLOG Insulin Flexpen SUBQ SCH ×3 (06:47→17:53)
[2017-08-14 07:14] LABS: ALANINE AMINOTRANSFERASE 27 U/L (12-78); ALBUMIN 2.8 G/DL (3.4-5.0); ALBUMIN/GLOBULIN RATIO 0.6 (1.0-2.7); ALKALINE PHOSPHATASE 51 U/L (46-116); ANION GAP 14 mmol/L (5-15); ASPARTATE AMINO TRANSFERASE 14 U/L (15-37); BILIRUBIN,TOTAL 0.3 MG/DL (0.2-1.0); BLOOD UREA NITROGEN 14 mg/dL (7-18); CALCIUM 9.1 MG/DL (8.5-10.1); CARBON DIOXIDE 21 MMOL/L (21-32); CHLORIDE 106 MMOL/L (98-107); CREATININE 0.9 MG/DL (0.55-1.30); PHOSPHORUS 3.3 MG/DL (2.5-4.9); POTASSIUM 3.9 MMOL/L (3.5-5.1); SODIUM 141 MMOL/L (136-145)
[2017-08-14 08:00] VITALS: BP 98/60
--- NOTE | 2017-08-14 08:06 | General Progress Note ---
Assessment/Plan Problem List: (1) colonic ileus (2) Status post tracheostomy ICD Codes: Z93.0 - Tracheostomy status SNOMED: 86787031 (3) Dyspnea ICD Codes: R06.00 - Dyspnea, unspecified SNOMED: 765611799 (4) Esophagitis ICD Codes: K20.9 - Esophagitis, unspecified SNOMED: 33740668 (5) Ventilator dependent ICD Codes: Z99.11 - Dependence on respirator [ventilator] status SNOMED: 784746743 Assessment/Plan GTF fu labs daily exam agree with dc all laxatives given diarrhea Subjective ROS Limited/Unobtainable: No Allergies: Coded Allergies: NO KNOWN DRUG ALLERGIES (Unverified Allergy, Unknown, 06/28/15) Subjective diarrhea Objective Last 24 Hour Vital Signs Date Time Temp Pulse Resp B/P (MAP) Pulse Ox O2 Delivery O2 Flow Rate FiO2 08/14/17 06:33 62 12 28 08/14/17 05:13 75 12 28 08/14/17 04:00 98.5 78 16 115/75 99 Mechanical Ventilator 28 98.5 08/14/17 04:00 28 08/14/17 04:00 76 08/14/17 03:30 77 12 28 08/14/17 01:08 71 14 28 08/14/17 00:00 98.1 77 14 112/72 99 Mechanical Ventilator 28 98.1 08/14/17 00:00 28 08/13/17 23:17 72 08/13/17 22:59 68 13 28 08/13/17 21:01 70 14 28 08/13/17 20:00 98.2 69 13 111/77 100 Mechanical Ventilator 28 98.2 08/13/17 20:00 28 08/13/17 19:30 73 14 28 08/13/17 19:20 70 08/13/17 17:25 70 12 28 08/13/17 16:15 97.6 72 18 110/70 100 Mechanical Ventilator 28 97.6 08/13/17 16:00 28 08/13/17 16:00 70 08/13/17 15:10 70 14 28 08/13/17 13:16 78 17 28 08/13/17 12:00 28 08/13/17 11:56 76 14 28 08/13/17 11:45 97.8 59 16 113/73 100 Mechanical Ventilator 28 97.8 08/13/17 11:23 64 08/13/17 09:02 71 19 28 08/13/17 08:45 97.6 63 16 103/67 100 Mechanical Ventilator 28 97.6 Intake and Output 08/13/17 08/14/17 19:00 07:00 Intake Total 1050.0 ml 730.0 ml Output Total 850 ml 890 ml Balance 200.0 ml -160.0 ml Intake Free Water 220 ml 100 ml IV Total 110.0 ml 110.0 ml Tube Feeding 720 ml 420 ml Other 100 ml Output Urine Total 850 ml 800 ml Stool Total 90 ml # Bowel Movements 60 Laboratory Tests 08/14/17 05:00: White Blood Count 8.1, Red Blood Count 3.54L, Hemoglobin 10.4L, Hematocrit 31.7L , Mean Corpuscular Volume 89, Mean Corpuscular Hemoglobin 29.3, Mean Corpuscular Hemoglobin Concent 32.8, Red Cell Distribution Width 15.3H, Platelet Count 293, Mean Platelet Volume 8.7, Neutrophils (%) (Auto) 71.7, Lymphocytes (%) (Auto) 16.6L, Monocytes (%) (Auto) 8.2, Eosinophils (%) (Auto) 3.0, Basophils (%) (Auto) 0.6, Sodium Level 141, Potassium Level 3.9, Chloride Level 106, Carbon Dioxide Level 21, Anion Gap 14, Blood Urea Nitrogen 14, Creatinine 0.9, Estimat Glomerular Filtration Rate > 60, Glucose Level 115H, Calcium Level 9.1, Phosphorus Level 3.3, Magnesium Level 1.7L, Total Bilirubin 0.3, Aspartate Amino Transf (AST/SGOT) 14L, Alanine Aminotransferase (ALT/SGPT) 27, Alkaline Phosphatase 51, Total Protein 7.7, Albumin 2.8L, Globulin 4.9, Albumin/Globulin Ratio 0.6L Height (Feet): 5 Height (Inches): 10.00 Weight (Pounds): 240 General Appearance: lethargic EENT: normal ENT inspection Neck: supple Cardiovascular: normal rate Respiratory/Chest: decreased breath sounds Abdomen: normal bowel sounds, non tender, soft Extremities: non-tender JOLLY SANON Aug 14, 2017 08:06
[2017-08-14] MEDS: metFORMIN 500mg tab GT SCH ×2 (09:25→20:48)
[2017-08-14] MEDS: levETIRAcetam 500mg/5ml Liquid GT SCH ×2 (09:25→20:48)
[2017-08-14] MEDS: Thiamine 100mg tab GT SCH (09:26)
[2017-08-14] MEDS: Lomotil 2.5mg tab ORAL PRN ×3 (09:26→17:53)
[2017-08-14] MEDS: Vitamin D 400 INTLU TAB ORAL SCH (09:26)
[2017-08-14] MEDS: Heparin 5000 units/ml inj SUBQ SCH ×2 (09:27→20:49)
--- NOTE | 2017-08-14 10:04 | Pulmonolgy Critical Care Note ---
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, 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 with: nurses, consultants, other - discharge when diarrhea resolves Critical Care - Objective Last 24 Hour Vital Signs Date Time Temp Pulse Resp B/P (MAP) Pulse Ox O2 Delivery O2 Flow Rate FiO2 08/14/17 08:21 73 08/14/17 08:00 97.2 68 12 98/60 99 Mechanical Ventilator 28 97.2 08/14/17 08:00 28 08/14/17 06:33 62 12 28 08/14/17 05:13 75 12 28 08/14/17 04:00 98.5 78 16 115/75 99 Mechanical Ventilator 28 98.5 08/14/17 04:00 28 08/14/17 04:00 76 08/14/17 03:30 77 12 28 08/14/17 01:08 71 14 28 08/14/17 00:00 98.1 77 14 112/72 99 Mechanical Ventilator 28 98.1 08/14/17 00:00 28 08/13/17 23:17 72 08/13/17 22:59 68 13 28 08/13/17 21:01 70 14 28 08/13/17 20:00 98.2 69 13 111/77 100 Mechanical Ventilator 28 98.2 08/13/17 20:00 28 08/13/17 19:30 73 14 28 08/13/17 19:20 70 08/13/17 17:25 70 12 28 08/13/17 16:15 97.6 72 18 110/70 100 Mechanical Ventilator 28 97.6 08/13/17 16:00 28 08/13/17 16:00 70 08/13/17 15:10 70 14 28 08/13/17 13:16 78 17 28 08/13/17 12:00 28 08/13/17 11:56 76 14 28 08/13/17 11:45 97.8 59 16 113/73 100 Mechanical Ventilator 28 97.8 08/13/17 11:23 64 Condition: critical HEENT: atraumatic Neck: full ROM Lungs: clear Heart: HR/BP stable Abdomen: soft, active bowel sounds Extremities: edema Accucheck: 126 Critical Care - Subjective ROS Limited/Unobtainable: No Interval Events: still has diarrhea Condition: critical EKG Rhythm: Sinus Rhythm FI02: 28 Vent Support Breath Rate: 12 Vent Support Mode: AC Vent Tidal Volume: 600 Sputum Amount: Small PEEP: 5.0 PIP: 22 Tube Feeding Amount: 60 I&O: Intake and Output 08/13/17 08/14/17 19:00 07:00 Intake Total 1050.0 ml 820.0 ml Output Total 850 ml 890 ml Balance 200.0 ml -70.0 ml Intake Free Water 220 ml 130 ml IV Total 110.0 ml 110.0 ml Tube Feeding 720 ml 480 ml Other 100 ml Output Urine Total 850 ml 800 ml Stool Total 90 ml # Bowel Movements 60 Labs: Laboratory Tests Test 08/14/17 05:00 White Blood Count 8.1 K/UL (4.8-10.8) Red Blood Count 3.54 M/UL (4.70-6.10) L Hemoglobin 10.4 G/DL (14.2-18.0) L Hematocrit 31.7 % (42.0-52.0) L Mean Corpuscular Volume 89 FL (80-99) Mean Corpuscular Hemoglobin 29.3 PG (27.0-31.0) Mean Corpuscular Hemoglobin Concent 32.8 G/DL (32.0-36.0) Red Cell Distribution Width 15.3 % (11.6-14.8) H Platelet Count 293 K/UL (150-450) Mean Platelet Volume 8.7 FL (6.5-10.1) Neutrophils (%) (Auto) 71.7 % (45.0-75.0) Lymphocytes (%) (Auto) 16.6 % (20.0-45.0) L Monocytes (%) (Auto) 8.2 % (1.0-10.0) Eosinophils (%) (Auto) 3.0 % (0.0-3.0) Basophils (%) (Auto) 0.6 % (0.0-2.0) Sodium Level 141 MMOL/L (136-145) Potassium Level 3.9 MMOL/L (3.5-5.1) Chloride Level 106 MMOL/L (98-107) Carbon Dioxide Level 21 MMOL/L (21-32) Anion Gap 14 mmol/L (5-15) Blood Urea Nitrogen 14 mg/dL (7-18) Creatinine 0.9 MG/DL (0.55-1.30) Estimat Glomerular Filtration Rate > 60 mL/min (>60) Glucose Level 115 MG/DL (74-106) H Calcium Level 9.1 MG/DL (8.5-10.1) Phosphorus Level 3.3 MG/DL (2.5-4.9) Magnesium Level 1.7 MG/DL (1.8-2.4) L Total Bilirubin 0.3 MG/DL (0.2-1.0) Aspartate Amino Transf (AST/SGOT) 14 U/L (15-37) L Alanine Aminotransferase (ALT/SGPT) 27 U/L (12-78) Alkaline Phosphatase 51 U/L (46-116) Total Protein 7.7 G/DL (6.4-8.2) Albumin 2.8 G/DL (3.4-5.0) L Globulin 4.9 g/dL Albumin/Globulin Ratio 0.6 (1.0-2.7) L Suzette Wallace MD Aug 14, 2017 10:04
--- NOTE | 2017-08-14 11:31 | General Surgery Progress Note ---
General Surgery-Progress Note Subjective Symptoms: improved Additional Comments diarrhea. otherwise tolerating feeds and abd benign. Objective Last 24 Hour Vital Signs Date Time Temp Pulse Resp B/P (MAP) Pulse Ox O2 Delivery O2 Flow Rate FiO2 08/14/17 08:47 67 12 28 08/14/17 08:21 73 08/14/17 08:00 97.2 68 12 98/60 99 Mechanical Ventilator 28 97.2 08/14/17 08:00 28 08/14/17 06:33 62 12 28 08/14/17 05:13 75 12 28 08/14/17 04:00 98.5 78 16 115/75 99 Mechanical Ventilator 28 98.5 08/14/17 04:00 28 08/14/17 04:00 76 08/14/17 03:30 77 12 28 08/14/17 01:08 71 14 28 08/14/17 00:00 98.1 77 14 112/72 99 Mechanical Ventilator 28 98.1 08/14/17 00:00 28 08/13/17 23:17 72 08/13/17 22:59 68 13 28 08/13/17 21:01 70 14 28 08/13/17 20:00 98.2 69 13 111/77 100 Mechanical Ventilator 28 98.2 08/13/17 20:00 28 08/13/17 19:30 73 14 28 08/13/17 19:20 70 08/13/17 17:25 70 12 28 08/13/17 16:15 97.6 72 18 110/70 100 Mechanical Ventilator 28 97.6 08/13/17 16:00 28 08/13/17 16:00 70 08/13/17 15:10 70 14 28 08/13/17 13:16 78 17 28 08/13/17 12:00 28 08/13/17 11:56 76 14 28 08/13/17 11:45 97.8 59 16 113/73 100 Mechanical Ventilator 28 97.8 I&O Intake and Output 08/13/17 08/14/17 19:00 07:00 Intake Total 1050.0 ml 820.0 ml Output Total 850 ml 890 ml Balance 200.0 ml -70.0 ml Intake Free Water 220 ml 130 ml IV Total 110.0 ml 110.0 ml Tube Feeding 720 ml 480 ml Other 100 ml Output Urine Total 850 ml 800 ml Stool Total 90 ml # Bowel Movements 60 Wound: clean Drains: none Cardiovascular: RSR Respiratory: clear Abdomen: soft, distended, non-tender, present bowel sounds Extremities: no cyanosis Laboratory Tests Test 08/14/17 05:00 White Blood Count 8.1 K/UL (4.8-10.8) Red Blood Count 3.54 M/UL (4.70-6.10) L Hemoglobin 10.4 G/DL (14.2-18.0) L Hematocrit 31.7 % (42.0-52.0) L Mean Corpuscular Volume 89 FL (80-99) Mean Corpuscular Hemoglobin 29.3 PG (27.0-31.0) Mean Corpuscular Hemoglobin Concent 32.8 G/DL (32.0-36.0) Red Cell Distribution Width 15.3 % (11.6-14.8) H Platelet Count 293 K/UL (150-450) Mean Platelet Volume 8.7 FL (6.5-10.1) Neutrophils (%) (Auto) 71.7 % (45.0-75.0) Lymphocytes (%) (Auto) 16.6 % (20.0-45.0) L Monocytes (%) (Auto) 8.2 % (1.0-10.0) Eosinophils (%) (Auto) 3.0 % (0.0-3.0) Basophils (%) (Auto) 0.6 % (0.0-2.0) Sodium Level 141 MMOL/L (136-145) Potassium Level 3.9 MMOL/L (3.5-5.1) Chloride Level 106 MMOL/L (98-107) Carbon Dioxide Level 21 MMOL/L (21-32) Anion Gap 14 mmol/L (5-15) Blood Urea Nitrogen 14 mg/dL (7-18) Creatinine 0.9 MG/DL (0.55-1.30) Estimat Glomerular Filtration Rate > 60 mL/min (>60) Glucose Level 115 MG/DL (74-106) H Calcium Level 9.1 MG/DL (8.5-10.1) Phosphorus Level 3.3 MG/DL (2.5-4.9) Magnesium Level 1.7 MG/DL (1.8-2.4) L Total Bilirubin 0.3 MG/DL (0.2-1.0) Aspartate Amino Transf (AST/SGOT) 14 U/L (15-37) L Alanine Aminotransferase (ALT/SGPT) 27 U/L (12-78) Alkaline Phosphatase 51 U/L (46-116) Total Protein 7.7 G/DL (6.4-8.2) Albumin 2.8 G/DL (3.4-5.0) L Globulin 4.9 g/dL Albumin/Globulin Ratio 0.6 (1.0-2.7) L Plan Problems: (1) Abdominal distention Assessment & Plan: 46M multiple medical problems who was in nursing facility had prior cholecystostomy tube that was pulled. thought to be more distended after tube pulled. exam benign. afebrile, labs okay. imaging reviewed. -seems to be okay without sequela since cholecystostomy removed. would have preferred to have cholangiogram before tube removed but since patient pulled there is nothing we can do now. no obstruction or ponce noted at this time. LFT's okay. -mild bowel distention but tolerating feeds and good output. -no acute surgical intervention needed. Okay to d/c from surgical standpoint. fortunately no complications from early unplanned removal of cholecystostomy tube. thank you for this consultation. will follow with recs. Steve Franks Aug 14, 2017 11:31
[2017-08-14 12:00] VITALS: BP 118/82
--- NOTE | 2017-08-14 12:32 | Infectious Diseases Prog Note ---
Assessment/Plan Assessment/Plan Assessment: . Leukocytosis , SP 05/17 CoNS contaminant- suspect contaminant, -08/07 Bcx / +; 08/09 Bcx p chronic cholecystitis s/p cholecystostomy tube Wnd Cx : p-linda Jarod growth colonizer Ucx : yeast : colonizer Abd distention 2ry to ileus. ? GI following -CT abd/p: No evidence of biloma or other complications relatable to stated clinical history of recent cholecystostomy removal. There is questionably some focal wall thickening and pericolonic infiltration involving the proximal ascending colon. This as well as proximal and distal fluid could indicate mild colitis changes asthma/COPD HTN Dm2 Dementia CVA s/p vegetative state chronic resp failure vent/trach dependant dysphagia s/p G-tube seizure disorder SNF resident Plan: - monitor pt off of AB Rx 08/13 SP Zosyn # 7 / 7 08/11 SP IV Vancomcyin # 3 -f/u cx -Monitor CBC, BMP, temperatures -trach/peg care -aspiration precautions Subjective Constitutional: Denies: no symptoms, fever, chills, fatigue, anorexia, drenching sweats, other Allergies: Coded Allergies: NO KNOWN DRUG ALLERGIES (Unverified Allergy, Unknown, 06/28/15) Objective Vital Signs Last 24 Hour Vital Signs Date Time Temp Pulse Resp B/P (MAP) Pulse Ox O2 Delivery O2 Flow Rate FiO2 08/14/17 12:00 97.7 64 14 118/82 99 Mechanical Ventilator 28 97.7 08/14/17 10:36 62 12 28 08/14/17 08:47 67 12 28 08/14/17 08:21 73 08/14/17 08:00 97.2 68 12 98/60 99 Mechanical Ventilator 28 97.2 08/14/17 08:00 28 08/14/17 06:33 62 12 28 08/14/17 05:13 75 12 28 08/14/17 04:00 98.5 78 16 115/75 99 Mechanical Ventilator 28 98.5 08/14/17 04:00 28 08/14/17 04:00 76 08/14/17 03:30 77 12 28 08/14/17 01:08 71 14 28 08/14/17 00:00 98.1 77 14 112/72 99 Mechanical Ventilator 28 98.1 08/14/17 00:00 28 08/13/17 23:17 72 08/13/17 22:59 68 13 28 08/13/17 21:01 70 14 28 08/13/17 20:00 98.2 69 13 111/77 100 Mechanical Ventilator 28 98.2 08/13/17 20:00 28 08/13/17 19:30 73 14 28 08/13/17 19:20 70 08/13/17 17:25 70 12 28 08/13/17 16:15 97.6 72 18 110/70 100 Mechanical Ventilator 28 97.6 08/13/17 16:00 28 08/13/17 16:00 70 08/13/17 15:10 70 14 28 08/13/17 13:16 78 17 28 Height (Feet): 5 Height (Inches): 10.00 Weight (Pounds): 240 HEENT: atraumatic Respiratory/Chest: normal breath sounds Cardiovascular: regular rhythm Abdomen: non distended Laboratory Tests Test 08/14/17 05:00 White Blood Count 8.1 K/UL (4.8-10.8) Red Blood Count 3.54 M/UL (4.70-6.10) L Hemoglobin 10.4 G/DL (14.2-18.0) L Hematocrit 31.7 % (42.0-52.0) L Mean Corpuscular Volume 89 FL (80-99) Mean Corpuscular Hemoglobin 29.3 PG (27.0-31.0) Mean Corpuscular Hemoglobin Concent 32.8 G/DL (32.0-36.0) Red Cell Distribution Width 15.3 % (11.6-14.8) H Platelet Count 293 K/UL (150-450) Mean Platelet Volume 8.7 FL (6.5-10.1) Neutrophils (%) (Auto) 71.7 % (45.0-75.0) Lymphocytes (%) (Auto) 16.6 % (20.0-45.0) L Monocytes (%) (Auto) 8.2 % (1.0-10.0) Eosinophils (%) (Auto) 3.0 % (0.0-3.0) Basophils (%) (Auto) 0.6 % (0.0-2.0) Sodium Level 141 MMOL/L (136-145) Potassium Level 3.9 MMOL/L (3.5-5.1) Chloride Level 106 MMOL/L (98-107) Carbon Dioxide Level 21 MMOL/L (21-32) Anion Gap 14 mmol/L (5-15) Blood Urea Nitrogen 14 mg/dL (7-18) Creatinine 0.9 MG/DL (0.55-1.30) Estimat Glomerular Filtration Rate > 60 mL/min (>60) Glucose Level 115 MG/DL (74-106) H Calcium Level 9.1 MG/DL (8.5-10.1) Phosphorus Level 3.3 MG/DL (2.5-4.9) Magnesium Level 1.7 MG/DL (1.8-2.4) L Total Bilirubin 0.3 MG/DL (0.2-1.0) Aspartate Amino Transf (AST/SGOT) 14 U/L (15-37) L Alanine Aminotransferase (ALT/SGPT) 27 U/L (12-78) Alkaline Phosphatase 51 U/L (46-116) Total Protein 7.7 G/DL (6.4-8.2) Albumin 2.8 G/DL (3.4-5.0) L Globulin 4.9 g/dL Albumin/Globulin Ratio 0.6 (1.0-2.7) L Current Medications Medications (Trade) Dose Ordered Sig/Tony Route PRN Reason Start Time Stop Time Status Last Admin Dose Admin Acetaminophen (Tylenol Peds) 160 mg Q4H PRN ORAL Temp > 100 08/07/17 18:30 09/06/17 18:29 Dextrose (Dextrose 50%) STAT PRN IV Hypoglycemia 08/07/17 18:30 09/06/17 18:29 Diphenoxylate HCl/ Atropine (Lomotil) 2.5 mg Q4H PRN ORAL Diarrhea 08/13/17 10:45 09/12/17 10:44 08/14/17 09:26 Heparin Sodium (Porcine) (Heparin 5000 units/ml) 5,000 units EVERY 12 HOURS SUBQ 08/07/17 21:00 09/06/17 20:59 08/14/17 09:27 Insulin Aspart (NovoLOG) EVERY 6 HOURS SUBQ 08/08/17 00:00 09/07/17 00:00 08/14/17 06:47 Lansoprazole (Prevacid) 30 mg DAILY GT 08/10/17 09:00 09/09/17 08:59 08/14/17 09:25 Levetiracetam (Keppra) 500 mg Q12HR GT 08/07/17 21:00 09/06/17 20:59 08/14/17 09:25 Metformin HCl (Glucophage) 1,000 mg Q12HR GT 08/07/17 21:00 09/06/17 20:59 08/14/17 09:25 Morphine Sulfate (Morphine Sulfate) 2 mg Q8H PRN IVP Moderate to Severe Pain 08/07/17 18:30 08/14/17 18:29 Thiamine HCl (Vitamin B1) 100 mg DAILY GT 08/08/17 09:00 09/07/17 08:59 08/14/17 09:26 Vitamin D (Vitamin D) 400 intlu DAILY ORAL 08/08/17 09:00 09/07/17 08:59 08/14/17 09:26 Esteban Payton MD Aug 14, 2017 12:32
[2017-08-14 16:00] VITALS: BP 115/77
[2017-08-14 20:00] VITALS: BP 100/65
[2017-08-15] VITALS: BP 104/62
[2017-08-15] MEDS: NovoLOG Insulin Flexpen SUBQ SCH ×4 (00:11→17:10)
[2017-08-15 04:00] VITALS: BP 122/80
[2017-08-15 05:17] LABS: BASOPHILS % (AUTO) 1.1 % (0.0-2.0); EOSINOPHILS % (AUTO) 3.2 % (0.0-3.0); HEMATOCRIT 30.7 % (42.0-52.0); LYMPHOCYTES % (AUTO) 27.9 % (20.0-45.0); MEAN CORPUSCULAR VOLUME 89 FL (80-99); MONOCYTES % (AUTO) 5.6 % (1.0-10.0); NEUTROPHILS % (AUTO) 62.2 % (45.0-75.0); PLATELET COUNT 280 K/UL (150-450); RED BLOOD COUNT 3.46 M/UL (4.70-6.10); RED CELL DISTRIBUTION WIDTH 15.5 % (11.6-14.8); WHITE BLOOD COUNT 7.3 K/UL (4.8-10.8)
[2017-08-15 05:45] LABS: ALANINE AMINOTRANSFERASE 25 U/L (12-78); ALBUMIN 2.8 G/DL (3.4-5.0); ALBUMIN/GLOBULIN RATIO 0.6 (1.0-2.7); ALKALINE PHOSPHATASE 48 U/L (46-116); ANION GAP 9 mmol/L (5-15); ASPARTATE AMINO TRANSFERASE 13 U/L (15-37); BILIRUBIN,TOTAL 0.2 MG/DL (0.2-1.0); BLOOD UREA NITROGEN 20 mg/dL (7-18); CALCIUM 9.4 MG/DL (8.5-10.1); CARBON DIOXIDE 25 MMOL/L (21-32); CHLORIDE 107 MMOL/L (98-107); CREATININE 0.9 MG/DL (0.55-1.30); PHOSPHORUS 3.1 MG/DL (2.5-4.9); POTASSIUM 4.1 MMOL/L (3.5-5.1); SODIUM 141 MMOL/L (136-145)
[2017-08-15 08:00] VITALS: BP 108/38
[2017-08-15] MEDS: levETIRAcetam 500mg/5ml Liquid GT SCH ×2 (08:20→20:37)
[2017-08-15] MEDS: metFORMIN 500mg tab GT SCH (08:20)
[2017-08-15] MEDS: Vitamin D 400 INTLU TAB ORAL SCH (08:20)
[2017-08-15] MEDS: Lomotil 2.5mg tab ORAL PRN (08:20)
[2017-08-15] MEDS: Thiamine 100mg tab GT SCH (08:20)
[2017-08-15] MEDS: Heparin 5000 units/ml inj SUBQ SCH ×2 (08:21→20:36)
--- NOTE | 2017-08-15 09:22 | General Progress Note ---
Assessment/Plan Problem List: (1) colonic ileus (2) Status post tracheostomy ICD Codes: Z93.0 - Tracheostomy status SNOMED: 46706883 (3) Dyspnea ICD Codes: R06.00 - Dyspnea, unspecified SNOMED: 960398411 (4) Esophagitis ICD Codes: K20.9 - Esophagitis, unspecified SNOMED: 52064191 (5) Ventilator dependent ICD Codes: Z99.11 - Dependence on respirator [ventilator] status SNOMED: 484937777 Assessment/Plan GTF fu labs daily exam agree with dc all laxatives given diarrhea fu stool C.diff Subjective ROS Limited/Unobtainable: No Allergies: Coded Allergies: NO KNOWN DRUG ALLERGIES (Unverified Allergy, Unknown, 06/28/15) Subjective diarrhea Objective Last 24 Hour Vital Signs Date Time Temp Pulse Resp B/P (MAP) Pulse Ox O2 Delivery O2 Flow Rate FiO2 08/15/17 08:00 98.1 63 12 108/38 99 Mechanical Ventilator 28 98.1 08/15/17 08:00 28 08/15/17 06:44 61 12 28 08/15/17 05:26 65 13 28 08/15/17 04:00 28 08/15/17 04:00 57 08/15/17 04:00 97.7 62 12 122/80 99 Mechanical Ventilator 28 97.7 08/15/17 03:36 66 12 28 08/15/17 00:34 80 13 28 08/15/17 00:00 70 08/15/17 00:00 98.0 79 14 104/62 99 Mechanical Ventilator 28 98.0 08/15/17 00:00 28 08/14/17 23:30 61 13 28 08/14/17 21:02 77 15 28 08/14/17 20:00 28 08/14/17 20:00 68 08/14/17 20:00 97.7 68 15 100/65 94 Mechanical Ventilator 28 97.7 08/14/17 19:30 70 14 28 08/14/17 16:53 85 15 28 08/14/17 16:00 28 08/14/17 16:00 97.9 64 14 115/77 96 Mechanical Ventilator 28 97.9 08/14/17 15:27 74 08/14/17 14:44 65 12 28 08/14/17 12:32 64 14 28 08/14/17 12:00 28 08/14/17 12:00 97.7 64 14 118/82 99 Mechanical Ventilator 28 97.7 08/14/17 11:39 65 08/14/17 10:36 62 12 28 Intake and Output 08/14/17 08/15/17 19:00 07:00 Intake Total 725 ml 805 ml Output Total 750 ml 350 ml Balance -25 ml 455 ml Intake Free Water 85 ml 60 ml Tube Feeding 600 ml 720 ml Blood Product 25 ml Other 40 ml Output Urine Total 750 ml 250 ml Stool Total 100 ml Laboratory Tests 08/15/17 03:50: White Blood Count 7.3, Red Blood Count 3.46L, Hemoglobin 10.0L, Hematocrit 30.7L , Mean Corpuscular Volume 89, Mean Corpuscular Hemoglobin 29.0, Mean Corpuscular Hemoglobin Concent 32.7, Red Cell Distribution Width 15.5H, Platelet Count 280, Mean Platelet Volume 8.1, Neutrophils (%) (Auto) 62.2, Lymphocytes (%) (Auto) 27.9, Monocytes (%) (Auto) 5.6, Eosinophils (%) (Auto) 3.2H, Basophils (%) (Auto) 1.1, Sodium Level 141, Potassium Level 4.1, Chloride Level 107, Carbon Dioxide Level 25, Anion Gap 9, Blood Urea Nitrogen 20H, Creatinine 0.9, Estimat Glomerular Filtration Rate > 60, Glucose Level 124H, Calcium Level 9.4, Phosphorus Level 3.1, Magnesium Level 1.8, Total Bilirubin 0.2, Aspartate Amino Transf (AST/SGOT) 13L, Alanine Aminotransferase (ALT/SGPT) 25, Alkaline Phosphatase 48, Total Protein 7.6, Albumin 2.8L, Globulin 4.8, Albumin/Globulin Ratio 0.6L Height (Feet): 5 Height (Inches): 10.00 Weight (Pounds): 240 General Appearance: lethargic EENT: normal ENT inspection Neck: supple Cardiovascular: normal rate Respiratory/Chest: decreased breath sounds Abdomen: normal bowel sounds, non tender, soft Extremities: non-tender JOLLY SANON Aug 15, 2017 09:22
--- NOTE | 2017-08-15 10:38 | Pulmonolgy Critical Care Note ---
Critical Care - Asmt/Plan Problems: (1) Intractable diarrhea (2) Sepsis (3) Diabetes mellitus, type II (4) COPD (chronic obstructive pulmonary disease) (5) Chronic complete quadriplegia (6) Status post tracheostomy (7) Cerebral vascular disease (8) Respiratory failure Assessment/Plan: I stopped metformin which is known to cause diarrhea. I increased the dose of lomotil as well Respiratory: monitor respiratory rate, adjust FIO2 Cardiac: continue to monitor HR/BP Renal: F/U I&O, keep IV fluid Infectious Disease: check cultures Gastrointestinal: continue feedings/current rate Endocrine: monitor blood sugar, check HgA1C Neurologic: PRN Ativan Affect: PRN ativan Prophylaxis: Protonix Critical Care - Objective Last 24 Hour Vital Signs Date Time Temp Pulse Resp B/P (MAP) Pulse Ox O2 Delivery O2 Flow Rate FiO2 08/15/17 08:43 64 13 28 08/15/17 08:00 98.1 63 12 108/38 99 Mechanical Ventilator 28 98.1 08/15/17 08:00 60 08/15/17 08:00 28 08/15/17 06:44 61 12 28 08/15/17 05:26 65 13 28 08/15/17 04:00 28 08/15/17 04:00 57 08/15/17 04:00 97.7 62 12 122/80 99 Mechanical Ventilator 28 97.7 08/15/17 03:36 66 12 28 08/15/17 00:34 80 13 28 08/15/17 00:00 70 08/15/17 00:00 98.0 79 14 104/62 99 Mechanical Ventilator 28 98.0 08/15/17 00:00 28 08/14/17 23:30 61 13 28 08/14/17 21:02 77 15 28 08/14/17 20:00 28 08/14/17 20:00 68 08/14/17 20:00 97.7 68 15 100/65 94 Mechanical Ventilator 28 97.7 08/14/17 19:30 70 14 28 08/14/17 16:53 85 15 28 08/14/17 16:00 28 08/14/17 16:00 97.9 64 14 115/77 96 Mechanical Ventilator 28 97.9 08/14/17 15:27 74 08/14/17 14:44 65 12 28 08/14/17 12:32 64 14 28 08/14/17 12:00 28 08/14/17 12:00 97.7 64 14 118/82 99 Mechanical Ventilator 28 97.7 08/14/17 11:39 65 08/14/17 10:36 62 12 28 Status: awake HEENT: atraumatic Heart: HR/BP stable, regular Abdomen: soft Extremities: no C/C/E, edema Accucheck: 134 Critical Care - Subjective ROS Limited/Unobtainable: Yes Interval Events: still large amount diarrhea Condition: critical EKG Rhythm: Sinus Rhythm FI02: 28 Vent Support Breath Rate: 12 Vent Support Mode: AC Vent Tidal Volume: 600 Sputum Amount: Small PEEP: 5.0 PIP: 22 Tube Feeding Amount: 60 I&O: Intake and Output 08/14/17 08/15/17 19:00 07:00 Intake Total 725 ml 805 ml Output Total 750 ml 350 ml Balance -25 ml 455 ml Intake Free Water 85 ml 60 ml Tube Feeding 600 ml 720 ml Blood Product 25 ml Other 40 ml Output Urine Total 750 ml 250 ml Stool Total 100 ml Labs: Laboratory Tests Test 08/15/17 03:50 White Blood Count 7.3 K/UL (4.8-10.8) Red Blood Count 3.46 M/UL (4.70-6.10) L Hemoglobin 10.0 G/DL (14.2-18.0) L Hematocrit 30.7 % (42.0-52.0) L Mean Corpuscular Volume 89 FL (80-99) Mean Corpuscular Hemoglobin 29.0 PG (27.0-31.0) Mean Corpuscular Hemoglobin Concent 32.7 G/DL (32.0-36.0) Red Cell Distribution Width 15.5 % (11.6-14.8) H Platelet Count 280 K/UL (150-450) Mean Platelet Volume 8.1 FL (6.5-10.1) Neutrophils (%) (Auto) 62.2 % (45.0-75.0) Lymphocytes (%) (Auto) 27.9 % (20.0-45.0) Monocytes (%) (Auto) 5.6 % (1.0-10.0) Eosinophils (%) (Auto) 3.2 % (0.0-3.0) H Basophils (%) (Auto) 1.1 % (0.0-2.0) Sodium Level 141 MMOL/L (136-145) Potassium Level 4.1 MMOL/L (3.5-5.1) Chloride Level 107 MMOL/L (98-107) Carbon Dioxide Level 25 MMOL/L (21-32) Anion Gap 9 mmol/L (5-15) Blood Urea Nitrogen 20 mg/dL (7-18) H Creatinine 0.9 MG/DL (0.55-1.30) Estimat Glomerular Filtration Rate > 60 mL/min (>60) Glucose Level 124 MG/DL (74-106) H Calcium Level 9.4 MG/DL (8.5-10.1) Phosphorus Level 3.1 MG/DL (2.5-4.9) Magnesium Level 1.8 MG/DL (1.8-2.4) Total Bilirubin 0.2 MG/DL (0.2-1.0) Aspartate Amino Transf (AST/SGOT) 13 U/L (15-37) L Alanine Aminotransferase (ALT/SGPT) 25 U/L (12-78) Alkaline Phosphatase 48 U/L (46-116) Total Protein 7.6 G/DL (6.4-8.2) Albumin 2.8 G/DL (3.4-5.0) L Globulin 4.8 g/dL Albumin/Globulin Ratio 0.6 (1.0-2.7) L Suzette Wallace MD Aug 15, 2017 10:38
[2017-08-15] MEDS ORDERED: Morphine Sulfate 10mg/5ml Oral Soln ud ORAL PRN ×2 (10:45→14:45)
[2017-08-15] MEDS ORDERED: Lomotil 2.5mg tab ORAL SCH (11:00)
[2017-08-15 12:00] VITALS: BP 139/67
[2017-08-15] MEDS: Lomotil 2.5mg tab ORAL SCH ×3 (12:35→20:37)
--- NOTE | 2017-08-15 13:38 | Infectious Diseases Prog Note ---
Assessment/Plan Assessment/Plan Assessment: . Leukocytosis , SP 05/17 CoNS contaminant- suspect contaminant, -08/07 Bcx / +; 08/09 Bcx p chronic cholecystitis s/p cholecystostomy tube Wnd Cx : p-linda Jarod growth colonizer Ucx : yeast : colonizer C Diff Neg Abd distention 2ry to ileus. ? GI following -CT abd/p: No evidence of biloma or other complications relatable to stated clinical history of recent cholecystostomy removal. There is questionably some focal wall thickening and pericolonic infiltration involving the proximal ascending colon. This as well as proximal and distal fluid could indicate mild colitis changes asthma/COPD HTN Dm2 Dementia CVA s/p vegetative state chronic resp failure vent/trach dependant dysphagia s/p G-tube seizure disorder SN[facility] resident Plan: - monitor pt off of AB Rx 08/13 SP Zosyn # 7 / 7 08/11 SP IV Vancomcyin # 3 -Monitor CBC, BMP, temperatures -trach/peg care -aspiration precautions Subjective Constitutional: Denies: no symptoms, fever, chills, fatigue, anorexia, drenching sweats, other Allergies: Coded Allergies: NO KNOWN DRUG ALLERGIES (Unverified Allergy, Unknown, 06/28/15) Objective Vital Signs Last 24 Hour Vital Signs Date Time Temp Pulse Resp B/P (MAP) Pulse Ox O2 Delivery O2 Flow Rate FiO2 08/15/17 12:46 63 12 28 08/15/17 12:00 28 08/15/17 12:00 70 08/15/17 12:00 98.9 92 19 139/67 100 Mechanical Ventilator 28 98.9 08/15/17 11:05 62 12 28 08/15/17 08:43 64 13 28 08/15/17 08:00 98.1 63 12 108/38 99 Mechanical Ventilator 28 98.1 08/15/17 08:00 60 08/15/17 08:00 28 08/15/17 06:44 61 12 28 08/15/17 05:26 65 13 28 08/15/17 04:00 28 08/15/17 04:00 57 08/15/17 04:00 97.7 62 12 122/80 99 Mechanical Ventilator 28 97.7 08/15/17 03:36 66 12 28 08/15/17 00:34 80 13 28 08/15/17 00:00 70 08/15/17 00:00 98.0 79 14 104/62 99 Mechanical Ventilator 28 98.0 08/15/17 00:00 28 08/14/17 23:30 61 13 28 08/14/17 21:02 77 15 28 08/14/17 20:00 28 08/14/17 20:00 68 08/14/17 20:00 97.7 68 15 100/65 94 Mechanical Ventilator 28 97.7 08/14/17 19:30 70 14 28 08/14/17 16:53 85 15 28 08/14/17 16:00 28 08/14/17 16:00 97.9 64 14 115/77 96 Mechanical Ventilator 28 97.9 08/14/17 15:27 74 08/14/17 14:44 65 12 28 Height (Feet): 5 Height (Inches): 10.00 Weight (Pounds): 240 HEENT: anicteric Respiratory/Chest: normal breath sounds Cardiovascular: regularly irregular Abdomen: no organomegaly Microbiology Date/Time Source Procedure Growth Status 08/14/17 17:30 Stool Clostridium difficile Toxin Assay - Final Complete Laboratory Tests Test 08/15/17 03:50 White Blood Count 7.3 K/UL (4.8-10.8) Red Blood Count 3.46 M/UL (4.70-6.10) L Hemoglobin 10.0 G/DL (14.2-18.0) L Hematocrit 30.7 % (42.0-52.0) L Mean Corpuscular Volume 89 FL (80-99) Mean Corpuscular Hemoglobin 29.0 PG (27.0-31.0) Mean Corpuscular Hemoglobin Concent 32.7 G/DL (32.0-36.0) Red Cell Distribution Width 15.5 % (11.6-14.8) H Platelet Count 280 K/UL (150-450) Mean Platelet Volume 8.1 FL (6.5-10.1) Neutrophils (%) (Auto) 62.2 % (45.0-75.0) Lymphocytes (%) (Auto) 27.9 % (20.0-45.0) Monocytes (%) (Auto) 5.6 % (1.0-10.0) Eosinophils (%) (Auto) 3.2 % (0.0-3.0) H Basophils (%) (Auto) 1.1 % (0.0-2.0) Sodium Level 141 MMOL/L (136-145) Potassium Level 4.1 MMOL/L (3.5-5.1) Chloride Level 107 MMOL/L (98-107) Carbon Dioxide Level 25 MMOL/L (21-32) Anion Gap 9 mmol/L (5-15) Blood Urea Nitrogen 20 mg/dL (7-18) H Creatinine 0.9 MG/DL (0.55-1.30) Estimat Glomerular Filtration Rate > 60 mL/min (>60) Glucose Level 124 MG/DL (74-106) H Calcium Level 9.4 MG/DL (8.5-10.1) Phosphorus Level 3.1 MG/DL (2.5-4.9) Magnesium Level 1.8 MG/DL (1.8-2.4) Total Bilirubin 0.2 MG/DL (0.2-1.0) Aspartate Amino Transf (AST/SGOT) 13 U/L (15-37) L Alanine Aminotransferase (ALT/SGPT) 25 U/L (12-78) Alkaline Phosphatase 48 U/L (46-116) Total Protein 7.6 G/DL (6.4-8.2) Albumin 2.8 G/DL (3.4-5.0) L Globulin 4.8 g/dL Albumin/Globulin Ratio 0.6 (1.0-2.7) L Current Medications Medications (Trade) Dose Ordered Sig/Tony Route PRN Reason Start Time Stop Time Status Last Admin Dose Admin Acetaminophen (Tylenol Peds) 160 mg Q4H PRN ORAL Temp > 100 08/07/17 18:30 09/06/17 18:29 Dextrose (Dextrose 50%) 25 ml STAT PRN IV HYPOGLYCEMIA 08/15/17 09:00 09/14/17 08:59 Dextrose (Dextrose 50%) 50 ml STAT PRN IV Hypoglycemia 08/15/17 09:00 09/06/17 08:59 Diphenoxylate HCl/ Atropine (Lomotil) 5 mg Q4HR ORAL 08/15/17 13:00 09/14/17 12:59 08/15/17 12:35 Heparin Sodium (Porcine) (Heparin 5000 units/ml) 5,000 units EVERY 12 HOURS SUBQ 08/07/17 21:00 09/06/17 20:59 08/15/17 08:21 Insulin Aspart (NovoLOG) EVERY 6 HOURS SUBQ 08/08/17 00:00 09/07/17 00:00 08/15/17 12:36 Lansoprazole (Prevacid) 30 mg DAILY GT 08/10/17 09:00 09/09/17 08:59 08/15/17 08:20 Levetiracetam (Keppra) 500 mg Q12HR GT 08/07/17 21:00 09/06/17 20:59 08/15/17 08:20 Morphine Sulfate (Morphine 10mg/ 5ml Oral Soln) 10 mg Q4H PRN ORAL Severe Pain (Pain Scale 7-10) 08/15/17 14:45 08/22/17 10:44 Thiamine HCl (Vitamin B1) 100 mg DAILY GT 08/08/17 09:00 09/07/17 08:59 08/15/17 08:20 Vitamin D (Vitamin D) 400 intlu DAILY ORAL 08/08/17 09:00 09/07/17 08:59 08/15/17 08:20 Esteban Payton MD Aug 15, 2017 13:38
[2017-08-15 16:00] VITALS: BP 117/74
[2017-08-15 20:00] VITALS: BP 102/65
[2017-08-15] MEDS ORDERED: NS 275ml ONE (22:06)
--- NOTE | 2017-08-17 12:48 | Discharge Summary ---
Discharge Summary Discharge Summary Discharge Summary DATE OF ADMISSION: 08/07/2017 DATE OF DISCHARGE: 08/15/2017 CONSULTANTS: Dr. Esteban Franks BRIEF HOSPITAL COURSE: Patient is a 46-year-old male with a history of chronic respiratory failure on trach, gastrostomy and prior percutaneous endoscopy, was brought in to ED from half-way due to abdominal distention. Patient apparently had pulled out the cholecystectomy tube that was recently placed. He has history significant for hypertension, asthma, COPD, diabetes, dysphagia, quadriplegia, seizure disorder, and is on chronic ventilator due to respiratory failure. On evaluation at ED, there was no leukocytosis, however lactate was 3.9. Urinalysis with bacteria. CT of the abdomen and pelvis showed no evidence of biloma or other complications related to stated clinical history of recent cholecystectomy tube removal. There was borderline distended gas filled colon, prominent colon gas extending to the level of mid to distal descending colon, without evidence of obstruction. He was admitted and was started empirically on Zosyn. He was placed on nothing by mouth for possible ileus, he was given IV hydration. He was placed on bowel rest until return of bowel function. G- tube was connected to low intermittent suction to aid with bowel/colonic decompression. Surgical evaluation was done. Abdominal examination benign. LFTs were normal. There was no acute surgical intervention needed. Blood culture showing growth of staph, vancomycin was added and repeat blood culture was ordered. He was eventually started on tube feeding. Urine culture with yeast, wound culture with gram-negative rods. He came in with stage III sacrococcygeal pressure ulcer, stage II right sacrococcygeal pressure ulcer, stage II right upper sacral pressure ulcer, left ischial tuberosity stage II pressure ulcer and right ischial tuberosity DTI pressure ulcer over full- thickness scar. He was given local wound care with frequent turning and repositioning and offloading. He was having diarrhea, Reglan was discontinued, stool C. difficile was negative. He was given Lomotil. He finished 7 days of vancomycin, repeat blood cultures did not isolate any growth. 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 DISCHARGE MEDICATIONS: Refer to Discharge Medication List. I have been assigned to dictate discharge summary on this account, and I was not involved in the patient's management. Noemi Wyman NP Aug 17, 2017 12:48
== END 2017-08-15 22:55 | DRG 247 ==
LOC: EDBD 12:23 → EMR 12:35 → 2W 12:45 → EDBEDREQ 13:53
PROC: 5A1955Z Respiratory Ventilation, Greater than 96 Consecutive Hours (ICD-10-PCS; principal; 2017-08-07)
DX: K56.7 Ileus, unspecified (principal); G93.40 Encephalopathy, unspecified; G82.50 Quadriplegia, unspecified; Z99.11 Dependence on respirator [ventilator] status; R40.3 Persistent vegetative state; J96.10 Chronic respiratory failure, unspecified whether with hypoxia or hypercapnia; L89.153 Pressure ulcer of sacral region, stage 3; Z93.0 Tracheostomy status; K63.89 Other specified diseases of intestine; Z93.1 Gastrostomy status; D50.9 Iron deficiency anemia, unspecified; N39.0 Urinary tract infection, site not specified; E11.9 Type 2 diabetes mellitus without complications; R65.10 Systemic inflammatory response syndrome (SIRS) of non-infectious origin without acute organ dysfunction; I10 Essential (primary) hypertension; J44.9 Chronic obstructive pulmonary disease, unspecified; R13.10 Dysphagia, unspecified; G40.909 Epilepsy, unspecified, not intractable, without status epilepticus; F03.90 Unspecified dementia, unspecified severity, without behavioral disturbance, psychotic disturbance, mood disturbance, and anxiety; K81.9 Cholecystitis, unspecified; K20.9 Esophagitis, unspecified; R19.7 Diarrhea, unspecified; L89.222 Pressure ulcer of left hip, stage 2; L89.210 Pressure ulcer of right hip, unstageable
CPT/HCPCS: 36415; 71045; 74018; 74177; 80048; 80053; 80202; 81003; 82150; 82270; 82378; 82607; 82728; 82746; 82962; 83036; 83540; 83550; 83605; 83690; 83735; 83880; 84100; 84439; 84443; 84484; 85025; 85044; 85610; 85730; 86850; 86900; 86901; 87040; 87070; 87086; 87181; 87205; 87324; 93005; 94002; 94003; 94664; 99285; J1815

== ENCOUNTER 2018-04-11 17:28 | Inpatient (IN) | payer MEDICAID ==
[~2018-04-11] VITALS: Ht 172.7 cm; Wt 63.5 kg
[~2018-04-11 17:28] MED LIST changes: +ACETAMINOP160 MG/5 M GT; +MIRALAX17 G2 GT; +MULTI-VITAMIN-1 EACH GT; +NEXIUM40 MG GT; +VITAMIN D400 INTLU GT; +ZOFRAN4 M1 ORAL; +ZOSYN 3.3753.375 GM IV
--- NOTE | 2018-04-11 18:09 | Emergency Room Report ---
History of Present Illness General Chief Complaint: Fever Source: Medical Record Present Illness HPI 47yo M with multiple medical problems, trach'd on vent, peg tube, sent from [place] for fever, tachycardia, diaphoresis. No further history given or obtainable from patient 2/2 medical condition. Allergies: Coded Allergies: NO KNOWN DRUG ALLERGIES (Unverified Allergy, Unknown, 06/28/15) Patient History Limited by: medical condition Past Medical History: see triage record Reviewed Nursing Documentation: PMH: Agreed; PSxH: Agreed Nursing Documentation-PMH Past Medical History: No History, Except For Hx Cardiac Problems: Yes Hx Hypertension: Yes Hx Asthma: Yes Hx COPD: Yes Hx Diabetes: Yes Hx Cancer: No Hx Gastrointestinal Problems: Yes - dysphagia Hx Neurological Problems: Yes - Persistent vegetative state Hx Cerebrovascular Accident: Yes Hx Seizures: Yes Hx Epilepsy: Yes Hx Paralysis: Yes Hx Memory Loss: Yes Hx Concentration Difficulty: Yes Hx Speech Problem: Yes - tracheostomy Hx Aphasia: Yes Hx Dysphasia: Yes Hx Weakness: Yes Review of Systems All Other Systems: limited Physical Exam Vital Signs Date Time Temp Pulse Resp B/P (MAP) Pulse Ox O2 Delivery O2 Flow Rate FiO2 04/11/18 17:32 99.0 120 18 115/75 98 Mechanical Ventilator 2.5 Sp02 EP Interpretation: reviewed, normal General Appearance: no apparent distress, alert, non-toxic Head: normocephalic Eyes: bilateral eye normal inspection, bilateral eye PERRL ENT: normal ENT inspection, no angioedema, moist mucus membranes Neck: normal inspection, supple, supple/symm/no masses, tracheotomy - site c/d/ i Respiratory: chest non-tender, lungs clear, normal breath sounds, chest symmetrical, palpation of chest normal Cardiovascular #1: normal peripheral pulses, regular rate, rhythm Cardiovascular #2: 2+ radial (R), 2+ radial (L) Gastrointestinal: normal inspection, non tender, soft, no mass, no guarding, no rebound, other - feeding tube c/d/i Rectal: deferred Genitourinary: normal inspection, no CVA tenderness Musculoskeletal: back normal, gait/station normal, normal range of motion, non- tender, no calf tenderness Neurologic: alert Skin: normal color, no rash, warm/dry, normal turgor Lymphatic: no adenopathy Medical Decision Making Diagnostic Impression: Primary Impression: Fever Additional Impression: UTI (urinary tract infection) ER Course Patient is vent dependent, unable to give any history, found to have a UTI, given IV antibiotics, will admit to Dr. Majano, to the [facility] EKG Diagnostic Results EKG Time: 17:51 EP Interpretation: 92 Rate: normal Rhythm: NSR ST Segments: no acute changes Rhythm Strip Diag. Results Rhythm Strip Time: 18:09 EP Interpretation: yes Rate: 91 Rhythm: NSR, no PVC's, no ectopy Chest X-Ray Diagnostic Results Chest X-Ray Diagnostic Results : Chest X-Ray Ordered: Yes # of Views/Limited/Complete: 1 View Indication: Other - fever EP Interpretation: Yes PA Xray: Interpretation reviewed Interpretation: no consolidation, no effusion, no pneumothorax, no acute cardiopulmonary disease Impression: No acute disease Electronically Signed by: Echo Lakhani MD Last Vital Signs Date Time Temp Pulse Resp B/P (MAP) Pulse Ox O2 Delivery O2 Flow Rate FiO2 04/11/18 17:32 99.0 120 18 115/75 98 Mechanical Ventilator 2.5 Disposition: ADMITTED INPATIENT Condition: Stable ECHO LAKHANI M.D Apr 11, 2018 18:09
[2018-04-11 18:10] VITALS: BP 115/75
[2018-04-11] MEDS ORDERED: NS 1000ml 1,900 ML IVLG ONE (18:15)
[2018-04-11 19:24] LABS: APPEARANCE,URINE CLEAR; BILIRUBIN, URINE NEGATIVE (NEGATIVE); GLUCOSE, URINE (UA) NEGATIVE (NEGATIVE); KETONES,URINE 1+ (NEGATIVE); LEUKOCYTE ESTERASE ,URINE 1+ (NEGATIVE); NITRITE,URINE POSITIVE (NEGATIVE); PH,URINE 8 (4.5-8.0); PROTEIN,URINE 2+ (NEGATIVE); UROBILINOGEN,URINE 1 MG/DL (0.0-1.0)
[2018-04-11 19:25] LABS: BASOPHILS % (AUTO) 0.7 % (0.0-2.0); EOSINOPHILS % (AUTO) 1.2 % (0.0-3.0); HEMATOCRIT 44.5 % (42.0-52.0); HEMOGLOBIN 14.7 G/DL (14.2-18.0); LYMPHOCYTES % (AUTO) 15.4 % (20.0-45.0); MEAN CORPUSCULAR VOLUME 86 FL (80-99); NEUTROPHILS % (AUTO) 74.7 % (45.0-75.0); PLATELET COUNT 324 K/UL (150-450); RED BLOOD COUNT 5.15 M/UL (4.70-6.10); RED CELL DISTRIBUTION WIDTH 13.2 % (11.6-14.8); WHITE BLOOD COUNT 10.8 K/UL (4.8-10.8)
[2018-04-11 19:25] LABS: COLOR,URINE YELLOW
[2018-04-11 19:41] LABS: ANION GAP 13 mmol/L (5-15); BLOOD UREA NITROGEN 19 mg/dL (7-18); CALCIUM 10.1 MG/DL (8.5-10.1); CARBON DIOXIDE 26 MMOL/L (21-32); CHLORIDE 100 MMOL/L (98-107); CREATININE 0.7 MG/DL (0.55-1.30); POTASSIUM 4.2 MMOL/L (3.5-5.1); SODIUM 139 MMOL/L (136-145)
[2018-04-11] MEDS ORDERED: BACITRACIN ZIN1 EACH TOPIC (19:51)
[2018-04-11] MEDS ORDERED: SKIN PROTECTAN113 GM TP (19:51)
[2018-04-11 19:54] LABS: ALANINE AMINOTRANSFERASE 47 U/L (12-78); ALBUMIN 3.4 G/DL (3.4-5.0); ALBUMIN/GLOBULIN RATIO 0.5 (1.0-2.7); ALKALINE PHOSPHATASE 84 U/L (46-116); ASPARTATE AMINO TRANSFERASE 29 U/L (15-37); BILIRUBIN,TOTAL 0.4 MG/DL (0.2-1.0); CKMB 0.5 NG/ML (0.0-3.6); CREATINE KINASE 48 U/L (26-308)
[2018-04-11] MEDS: Ampicillin/Sulbactam Sod 3 GM in NS 110 ML IV SCH (19:55)
[2018-04-11] MEDS ORDERED: VITAMIN D250000 UNI1 ORAL (20:06)
[2018-04-11] MEDS ORDERED: LACTULOSE20 GM/301 GT (20:06)
[2018-04-11] MEDS ORDERED: MILK OF MA400 MG/51 GT (20:06)
[2018-04-11] MEDS ORDERED: DUONEB 0.5-3(2.53 ML HHN (20:06)
[2018-04-11] MEDS ORDERED: KEPPRA LIQ100 MG/1 M GT (20:06)
[2018-04-11] MEDS ORDERED: MAGNESIUM OXID400 M1 GT (20:06)
[2018-04-11 21:03] VITALS: BP 103/74
[2018-04-11 21:38] VITALS: BP 92/64
[2018-04-11 22:50] VITALS: BP 116/77
[2018-04-12] VITALS: BP 116/77
[2018-04-12] MEDS ORDERED: Heparin 2000 units/Ns 1000ml INJ SCH ×2 (01:45→09:00)
[2018-04-12] MEDS ORDERED: Lidocaine 1% Plain 30 ml INJ SCH ×2 (01:45→09:00)
[2018-04-12] MEDS ORDERED: Acetaminophen 650mg/20.3ml GT PRN (03:00)
[2018-04-12 04:00] VITALS: BP 124/58
[2018-04-12] MEDS: Ampicillin/Sulbactam Sod 3 GM in NS 110 ML IV SCH (04:18)
[2018-04-12 05:20] LABS: BASOPHILS % (AUTO) 0.7 % (0.0-2.0); EOSINOPHILS % (AUTO) 1.9 % (0.0-3.0); HEMATOCRIT 37.6 % (42.0-52.0); HEMOGLOBIN 12.3 G/DL (14.2-18.0); LYMPHOCYTES % (AUTO) 16.6 % (20.0-45.0); MEAN CORPUSCULAR VOLUME 87 FL (80-99); MONOCYTES % (AUTO) 8.5 % (1.0-10.0); NEUTROPHILS % (AUTO) 72.3 % (45.0-75.0); PLATELET COUNT 277 K/UL (150-450); RED BLOOD COUNT 4.35 M/UL (4.70-6.10); RED CELL DISTRIBUTION WIDTH 12.9 % (11.6-14.8)
[2018-04-12 05:38] LABS: ANION GAP 11 mmol/L (5-15); BLOOD UREA NITROGEN 14 mg/dL (7-18); CALCIUM 9.1 MG/DL (8.5-10.1); CARBON DIOXIDE 25 MMOL/L (21-32); CHLORIDE 105 MMOL/L (98-107); CREATININE 0.5 MG/DL (0.55-1.30); POTASSIUM 3.9 MMOL/L (3.5-5.1); SODIUM 140 MMOL/L (136-145)
[2018-04-12 06:04] LABS: AMMONIA 31 umol/L (11-32)
[2018-04-12] MEDS: NovoLOG Insulin Flexpen SUBQ SCH ×4 (06:18→23:32)
[2018-04-12] MEDS: Albuterol/Ipratropium 3ml neb HHN SCH ×3 (06:48→19:33)
[2018-04-12 08:00] VITALS: BP 110/75
[2018-04-12] MEDS: metFORMIN 500mg tab GT SCH ×2 (09:34→17:44)
[2018-04-12] MEDS: Magnesium Oxide 400mg tab GT SCH (09:34)
[2018-04-12] MEDS: levETIRAcetam 500mg/5ml Liquid GT SCH ×2 (09:34→17:44)
[2018-04-12] MEDS: Heparin 5000 units/ml inj SUBQ SCH ×2 (09:39→20:46)
[2018-04-12] MEDS: Multivitamins W/Minerals 15 ML UDC GT SCH (09:40)
--- NOTE | 2018-04-12 09:53 | Diagnostic Imaging Report ---
Indication: Cough Technique: One view of the chest Comparison: 08/13/2017 Findings: Linear atelectasis or scarring is seen at the left lung base and right perihilar region. The lungs and pleural spaces are otherwise clear. The heart is borderline enlarged. There is a tracheostomy Impression: Bilateral atelectasis and/or scarring as described No acute process otherwise
--- NOTE | 2018-04-12 10:27 | Pulmonolgy Critical Care Note ---
Critical Care - Asmt/Plan Problems: (1) Acute and chronic respiratory failure (2) Sepsis (3) COPD (chronic obstructive pulmonary disease) (4) Ventilator dependent (5) Chronic vegetative state (6) Seizure disorder (7) Diabetes mellitus, type II (8) Feeding by G-tube (9) [facility] resident Respiratory: monitor respiratory rate, adjust FIO2, CXR Cardiac: continue pressors, stop pressors, continue to monitor HR/BP Infectious Disease: check cultures, continue antibiotics Gastrointestinal: continue feedings/current rate Hematologic: monitor H/H, transfuse if hgb<8.5 Neurologic: PRN Ativan, keep patient comfortable Prophylaxis: Protonix 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, 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 with: nurses, consultants, 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 - Objective Last 24 Hour Vital Signs Date Time Temp Pulse Resp B/P (MAP) Pulse Ox O2 Delivery O2 Flow Rate FiO2 04/12/18 09:20 69 12 30 04/12/18 08:00 65 04/12/18 07:00 70 14 99 Mechanical Ventilator 30 04/12/18 06:49 83 12 99 Mechanical Ventilator 30 04/12/18 06:46 68 12 30 04/12/18 05:09 74 14 30 04/12/18 04:00 30 04/12/18 04:00 99.0 78 14 124/58 (80) 98 04/12/18 04:00 Mechanical Ventilator 04/12/18 03:57 80 04/12/18 03:19 72 15 30 04/12/18 00:36 80 12 30 04/12/18 00:00 98.6 76 17 116/77 (90) 100 04/11/18 22:57 97.5 68 12 95/63 100 Mechanical Ventilator 2.2 100 68 68 04/11/18 22:50 Mechanical Ventilator 04/11/18 22:50 78 14 30 04/11/18 22:50 98.6 76 17 116/77 (90) 100 04/11/18 21:38 99.0 63 12 92/64 100 Mechanical Ventilator 2.5 30 63 04/11/18 21:03 99.0 65 12 103/74 100 Mechanical Ventilator 2.5 30 04/11/18 20:52 74 12 30 04/11/18 19:27 95 18 Mechanical Ventilator 2.5 30 04/11/18 18:48 95 18 30 04/11/18 18:10 99.0 12 115/75 98 Mechanical Ventilator 2.5 30 04/11/18 17:40 115 12 30 04/11/18 17:32 99.0 120 18 115/75 98 Mechanical Ventilator 2.5 04/11/18 11:44 74 Status: awake Condition: critical HEENT: atraumatic, normocephalic Neck: trach Lungs: rales, rhonchi Heart: HR/BP stable, HR/BP unstable Abdomen: soft Decubiti: location Micro: Microbiology Date/Time Source Procedure Growth Status 04/11/18 19:20 Nasal Nares Influenza Types A,B Antigen (ECHO) - Final Complete 04/11/18 19:18 Urine,Clean Catch Urine Culture - Preliminary Resulted Accucheck: 188 Critical Care - Subjective ROS Limited/Unobtainable: Yes Interval Events: 46-year-old white male with hx of Hypertension, asthma, chronic obstructive pulmonary disease, diabetes, dysphagia, seizure disorder, quadriplegia, and vent dependent respiratory failure, on ventilator. [facility] resident brought in for evaluation of fever, and dyspnea. Initial evaluation revealed that Pt has pyuria. He is admitted to [facility] for further treatment. Condition: critical FI02: 30 Vent Support Breath Rate: 12 Vent Support Mode: AC Vent Tidal Volume: 600 Sputum Amount: Small PEEP: 5.0 PIP: 18 Tube Feeding Amount: 15 I&O: Intake and Output 04/11/18 04/12/18 18:59 06:59 Intake Total 185 ml Output Total 1400 ml Balance -1215 ml Intake Oral 0 ml Free Water 30 ml IV Total 110 ml Tube Feeding 45 ml Other 0 ml Output Urine Total 800 ml Stool Total 600 ml # Voids 1 # Bowel Movements 2 CXR: LUCAS, trach in appropriate position. Suzette Wallace MD Apr 12, 2018 10:27
[2018-04-12] MEDS: Levemir Flexpen SUBQ SCH ×2 (10:33→20:46)
--- NOTE | 2018-04-12 10:58 | Diagnostic Imaging Report ---
Indication: Cough Technique: One view of the chest Comparison: 04/11/2018 Findings: There is increased atelectasis at the left lung base and in the right perihilar region. No definite infiltrates or effusions. Tracheostomy remains. Heart remains borderline enlarged Impression: Increasing bilateral atelectasis. Otherwise little pattern changer one day
[2018-04-12 12:00] VITALS: BP 99/63
[2018-04-12 16:00] VITALS: BP 108/75
--- NOTE | 2018-04-12 17:35 | Consultation ---
History of Present Illness General Date patient seen: Apr 12, 2018 Chief Complaint: Fever Present Illness HPI 47 y/o M with hx of chronic resp failure trach/vent dependent, HTN, Asthma/COPD , Dm2, Dysphagia sp PEG, persistent vegetative state, CVA, seizure disorder, chronic cholecystitis s/p cholecystostomy tube, [place] resident presents to ED on with fever, tachycardia, diaphoresis Of note, patient was admitted back in July this year after dislocation of cholecystostomy tube. he received 7 days of Zosyn. Allergies: Coded Allergies: NO KNOWN DRUG ALLERGIES (Unverified Allergy, Unknown, 06/28/15) Medication History Scheduled Bacitracin Zinc* (Bacitracin Zinc*), 1 APPLIC TOPIC DAILY, (Reported) Cranberry Extract (Cranberry Juice Powder), 425 MG GT DAILY, (Reported) Ergocalciferol (Vitamin D2)* (Vitamin D*), 50,000 UNIT ORAL ONCE A WEEK, ( Reported) Esomeprazole Magnesium (Nexium), 40 MG GT BID, (Reported) Heparin Sod (Porcine) (Heparin Sodium*), 5,000 UNITS SUBQ EVERY 12 HOURS, ( Reported) Insulin Glargine (Lantus), 24 UNITS SUBQ BEDTIME, (Reported) Ipratropium/Albuterol Sulfate (DuoNeb 0.5-3(2.5)mg/3ml), 3 ML HHN Q4HR, ( Reported) Levetiracetam (Keppra), 5 ML GT TWICE A DAY, (Reported) Magnesium Hydroxide* (Milk Of Magnesia*), 30 ML GT DAILY, (Reported) Magnesium Oxide (Magnesium Oxide), 400 MG GT DAILY, (Reported) Metformin Hcl* (Metformin Hcl*), 1,000 MG GT BID, (Reported) Multivit-Min/Iron Fum/Folic AC (Igfhg-Vpcxqlo-Mllzwgil Tablet), 1 EACH GT DAILY, (Reported) Zinc Oxide (Skin Protectant), 113 GM TP BID, (Reported) Scheduled PRN Acetaminophen 160MG/5ML* (Acetaminophen*), 20.3 ML GT Q4HR PRN for PAIN 1-3 OR TEMP > 100.4, (Reported) Miscellaneous Medications Insulin Lispro (Humalog), 0 SUBQ, (Reported) Lactulose (Lactulose*), 30 ML GT, (Reported) Discontinued Medications Albuterol Sulfate* (Albuterol Sulfate Hhn*), 3 ML INH EVERY 3 HOURS PRN for Shortness of Breath, (Reported) Discontinued Reason: Pt stopped taking med Cefepime Hcl/Dextrose, Iso-Osm (Cefepime 2 Gm Injection), 2 GM IV EVERY 8 HOURS Discontinued Reason: Pt stopped taking med Dextran 70/Hypromellose (Artificial Tears Eye Drops*), 1 DROP BOTH EYES EVERY 6 HOURS, (Reported) Discontinued Reason: Pt stopped taking med Ferrous Sulfate (Ferrous Sulfate), 7.5 ML GT BID, (Reported) Discontinued Reason: Pt stopped taking med Levetiracetam (Keppra), 5 ML GT BID, (Reported) Discontinued Reason: Pt stopped taking med Lorazepam (Lorazepam), 2 MG IM Q4H, (Reported) Discontinued Reason: Pt stopped taking med Magnesium Hydroxide* (Milk Of Magnesia*), 30 ML ORAL DAILY PRN for Constipation, (Reported) Discontinued Reason: Prescription changed Magnesium Oxide (Magnesium Oxide), 500 MG GT DAILY, (Reported) Discontinued Reason: Prescription changed Ondansetron (Zofran), 4 MG ORAL Q6H PRN for Nausea & Vomiting, (Reported) Discontinued Reason: Pt stopped taking med Piperacillin Sodium/Tazobactam (Zosyn 3.375 Gram Vial), 3.375 GM IV EVERY 6 HOURS, (Reported) Discontinued Reason: Pt stopped taking med Polyethylene Glycol 3350* (Miralax*), 17 GM GT DAILY PRN for Constipation, ( Reported) Discontinued Reason: Pt stopped taking med Potassium Chloride (Potassium Chloride), 20 MEQ ORAL DAILY, (Reported) Discontinued Reason: Pt stopped taking med Thiamine Hcl (Vitamin B1*), 100 MG GT DAILY, (Reported) Discontinued Reason: Pt stopped taking med Vit C/Ascorbate Ca/Ascorb Sod (Vitamin C 500 Mg/15 Ml Liquid), 500 MG GT DAILY, (Reported) Discontinued Reason: Pt stopped taking med Patient History Healthcare decision maker Resuscitation status Full Code Advanced Directive on File Patient History Narrative Pmhx: as above Shx: Denies: smoking, alcohol use, drug use Fhx: non contributory Review of Systems All Other Systems: negative except mentioned in HPI Physical Exam Physical Exam Narrative HEENT: normocephalic, bilateral eye PERRL, moist mucus membranes Neck: normal inspection, supple, supple/symm/no masses, tracheotomy - site c/d/ i Respiratory: chest non-tender, lungs clear, normal breath sounds, chest symmetrical, palpation of chest normal Cardiovascular : normal peripheral pulses, regular rate, rhythm Gastrointestinal: normal inspection, non tender, soft, no mass, no guarding, no rebound, other - feeding tube c/d/i Genitourinary: normal inspection, no CVA tenderness Musculoskeletal: back normal, gait/station normal, normal range of motion, non- tender, no calf tenderness Neurologic: alert Skin: normal color, no rash, warm/dry, normal turgor Last 24 Hour Vital Signs Date Time Temp Pulse Resp B/P (MAP) Pulse Ox O2 Delivery O2 Flow Rate FiO2 04/12/18 16:13 91 04/12/18 16:00 Mechanical Ventilator 04/12/18 16:00 97.9 87 16 108/75 (86) 100 04/12/18 16:00 30 04/12/18 14:30 86 17 30 04/12/18 13:21 78 12 99 Mechanical Ventilator 30 04/12/18 13:11 75 12 99 Mechanical Ventilator 30 04/12/18 12:35 76 13 30 04/12/18 12:00 62 04/12/18 12:00 Mechanical Ventilator 04/12/18 12:00 30 04/12/18 12:00 98.3 69 16 99/63 (75) 100 04/12/18 10:34 78 15 30 04/12/18 09:20 69 12 30 04/12/18 08:00 65 04/12/18 08:00 97.8 71 16 110/75 (87) 100 04/12/18 08:00 Mechanical Ventilator 04/12/18 08:00 30 04/12/18 07:00 70 14 99 Mechanical Ventilator 30 04/12/18 06:49 83 12 99 Mechanical Ventilator 30 04/12/18 06:46 68 12 30 04/12/18 05:09 74 14 30 04/12/18 04:00 30 04/12/18 04:00 99.0 78 14 124/58 (80) 98 04/12/18 04:00 Mechanical Ventilator 04/12/18 03:57 80 04/12/18 03:19 72 15 30 04/12/18 00:36 80 12 30 04/12/18 00:00 98.6 76 17 116/77 (90) 100 04/11/18 22:57 97.5 68 12 95/63 100 Mechanical Ventilator 2.2 100 68 68 04/11/18 22:50 Mechanical Ventilator 04/11/18 22:50 78 14 30 04/11/18 22:50 98.6 76 17 116/77 (90) 100 04/11/18 21:38 99.0 63 12 92/64 100 Mechanical Ventilator 2.5 30 63 04/11/18 21:03 99.0 65 12 103/74 100 Mechanical Ventilator 2.5 30 04/11/18 20:52 74 12 30 04/11/18 19:27 95 18 Mechanical Ventilator 2.5 30 04/11/18 18:48 95 18 30 04/11/18 18:10 99.0 12 115/75 98 Mechanical Ventilator 2.5 30 04/11/18 17:40 115 12 30 04/11/18 17:32 99.0 120 18 115/75 98 Mechanical Ventilator 2.5 Intake and Output 04/11/18 04/12/18 18:59 06:59 Intake Total 185 ml Output Total 1400 ml Balance -1215 ml Intake Oral 0 ml Free Water 30 ml IV Total 110 ml Tube Feeding 45 ml Other 0 ml Output Urine Total 800 ml Stool Total 600 ml # Voids 1 # Bowel Movements 2 Laboratory Tests Test 04/11/18 19:00 04/11/18 19:18 04/11/18 20:48 04/12/18 04:00 White Blood Count 10.8 K/UL (4.8-10.8) 11.0 K/UL (4.8-10.8) H Red Blood Count 5.15 M/UL (4.70-6.10) 4.35 M/UL (4.70-6.10) L Hemoglobin 14.7 G/DL (14.2-18.0) 12.3 G/DL (14.2-18.0) L Hematocrit 44.5 % (42.0-52.0) 37.6 % (42.0-52.0) L Mean Corpuscular Volume 86 FL (80-99) 87 FL (80-99) Mean Corpuscular Hemoglobin 28.6 PG (27.0-31.0) 28.3 PG (27.0-31.0) Mean Corpuscular Hemoglobin Concent 33.1 G/DL (32.0-36.0) 32.7 G/DL (32.0-36.0) Red Cell Distribution Width 13.2 % (11.6-14.8) 12.9 % (11.6-14.8) Platelet Count 324 K/UL (150-450) 277 K/UL (150-450) Mean Platelet Volume 9.2 FL (6.5-10.1) 8.6 FL (6.5-10.1) Neutrophils (%) (Auto) 74.7 % (45.0-75.0) 72.3 % (45.0-75.0) Lymphocytes (%) (Auto) 15.4 % (20.0-45.0) L 16.6 % (20.0-45.0) L Monocytes (%) (Auto) 8.0 % (1.0-10.0) 8.5 % (1.0-10.0) Eosinophils (%) (Auto) 1.2 % (0.0-3.0) 1.9 % (0.0-3.0) Basophils (%) (Auto) 0.7 % (0.0-2.0) 0.7 % (0.0-2.0) Prothrombin Time 10.6 SEC (9.30-11.50) Prothromb Time International Ratio 1.0 (0.9-1.1) Activated Partial Thromboplast Time 28 SEC (23-33) Sodium Level 139 MMOL/L (136-145) 140 MMOL/L (136-145) Potassium Level 4.2 MMOL/L (3.5-5.1) 3.9 MMOL/L (3.5-5.1) Chloride Level 100 MMOL/L (98-107) 105 MMOL/L (98-107) Carbon Dioxide Level 26 MMOL/L (21-32) 25 MMOL/L (21-32) Anion Gap 13 mmol/L (5-15) 11 mmol/L (5-15) Blood Urea Nitrogen 19 mg/dL (7-18) H 14 mg/dL (7-18) Creatinine 0.7 MG/DL (0.55-1.30) 0.5 MG/DL (0.55-1.30) L Estimat Glomerular Filtration Rate > 60 mL/min (>60) > 60 mL/min (>60) Glucose Level 187 MG/DL (74-106) H 165 MG/DL (74-106) H Lactic Acid Level 2.30 mmol/L (0.4-2.0) H 2.30 mmol/L (0.66-2.22) H Calcium Level 10.1 MG/DL (8.5-10.1) 9.1 MG/DL (8.5-10.1) Magnesium Level 1.7 MG/DL (1.8-2.4) L Total Bilirubin 0.4 MG/DL (0.2-1.0) Aspartate Amino Transf (AST/SGOT) 29 U/L (15-37) Alanine Aminotransferase (ALT/SGPT) 47 U/L (12-78) Alkaline Phosphatase 84 U/L (46-116) Total Creatine Kinase 48 U/L (26-308) Creatine Kinase MB 0.5 NG/ML (0.0-3.6) Creatine Kinase MB Relative Index 1.0 Troponin I 0.000 ng/mL (0.000-0.056) Total Protein 9.6 G/DL (6.4-8.2) H Albumin 3.4 G/DL (3.4-5.0) Globulin 6.2 g/dL Albumin/Globulin Ratio 0.5 (1.0-2.7) L Urine Color Yellow Urine Appearance Clear Urine pH 8 (4.5-8.0) Urine Specific [place] 1.015 (1.005-1.035) Urine Protein 2+ (NEGATIVE) H Urine Glucose (UA) Negative (NEGATIVE) Urine Ketones 1+ (NEGATIVE) H Urine Blood 1+ (NEGATIVE) H Urine Nitrite Positive (NEGATIVE) H Urine Bilirubin Negative (NEGATIVE) Urine Urobilinogen 1 MG/DL (0.0-1.0) H Urine Leukocyte Esterase 1+ (NEGATIVE) H Urine RBC 5-10 /HPF (0 - 0) H Urine WBC 15-20 /HPF (0 - 0) H Urine Squamous Epithelial Cells Occasional /LPF Urine Bacteria Few /HPF (NONE) Hemoglobin A1c 7.5 % (4.3-6.0) H Ammonia 31 umol/L (11-32) Microbiology Date/Time Source Procedure Growth Status 04/11/18 19:20 Nasal Nares Influenza Types A,B Antigen (ECHO) - Final Complete 04/11/18 19:18 Urine,Clean Catch Urine Culture - Preliminary Resulted Height (Feet): 5 Height (Inches): 8.00 Weight (Pounds): 140 Medications Current Medications Medications (Trade) Dose Ordered Sig/Tony Route PRN Reason Start Time Stop Time Status Last Admin Dose Admin Acetaminophen (Tylenol) 650 mg Q4H PRN GT PAIN 1-3 OR TEMP > 100.4 04/12/18 03:00 05/12/18 02:59 Albuterol/ Ipratropium (Albuterol/ Ipratropium) 3 ml Q6HRT HHN 04/12/18 07:00 04/17/18 06:59 04/12/18 13:10 Chlorhexidine Gluconate (Kay-Hex 2%) 1 applic DAILY@2000 TOPIC 04/12/18 20:00 05/12/18 19:59 Heparin Sodium (Porcine) (Heparin 5000 units/ml) 5,000 units EVERY 12 HOURS SUBQ 04/12/18 09:00 05/12/18 08:59 04/12/18 09:39 Insulin Aspart (NovoLOG) HumaLOG Solution 100 unit... Q6H SUBQ 04/12/18 06:00 05/12/18 05:59 04/12/18 13:08 Insulin Detemir (Levemir) 10 units DAILY@0900 SUBQ 04/12/18 09:00 05/12/18 08:59 04/12/18 10:33 Insulin Detemir (Levemir) 20 units QHS SUBQ 04/12/18 21:00 05/12/18 20:59 Lansoprazole (Prevacid) 30 mg BID GT 04/12/18 09:00 05/12/18 08:59 04/12/18 09:34 Levetiracetam (Keppra) 500 mg TWICE A DAY GT 04/12/18 09:00 05/12/18 08:59 04/12/18 09:34 Magnesium Oxide (Mag-Ox 400mg) 400 mg DAILY GT 04/12/18 09:00 05/12/18 08:59 04/12/18 09:34 Metformin HCl (Glucophage) 1,000 mg BID GT 04/12/18 09:00 05/12/18 08:59 04/12/18 09:34 Multivitamins (Multivitamins W/ Minerals 15ml Liquid) 15 ml DAILY GT 04/12/18 09:00 05/12/18 08:59 04/12/18 09:40 Assessment/Plan Assessment/Plan Abx: Unasyn x 1 04/11 Assessment: Sepsis- likely 2ry to UTI -u/a wbc 15-20, nit +, leuk +1 ;ucx p -CXR: no acute disease -influenza sc neg Afebrile Mild leukocytosis chronic cholecystitis s/p cholecystostomy tube asthma/COPD HTN Dm2 Dementia CVA s/p vegetative state chronic resp failure vent/trach dependant dysphagia s/p G-tube seizure disorder SNF resident Plan: -Start empiric Cefepime pending urine culture -04/11 SP Unasyn x1 -4/2 SP Zosyn # 7 / 7 - 08/11/17 SP IV Vancomcyin # 3 -f/u cx -Monitor CBC/CMP, temperatures Thank you for this consultation. Will continue to follow along with you. Discussed with Laura Ridley M.D. Apr 12, 2018 17:35
[2018-04-12] MEDS: Cefepime HCl 1 GM in D5W 55 ML IVPB SCH (18:18)
[2018-04-12 20:00] VITALS: BP 139/85
[2018-04-12] MEDS: Dyna-Hex 2% Top Sol 2oz TOPIC SCH (20:00)
[2018-04-13] VITALS: BP 126/84
--- NOTE | 2018-04-13 | History and Physical Report ---
DATE OF ADMISSION: 04/11/2018 This report contained a report of yesterday and today due to the computer not responding either to obtain data or to insert data during more than 1-hour visit. HISTORY OF PRESENT ILLNESS: The patient is a resident of an extended care facility subacute unit, in stable condition over the last several months. He is known to have several chronic medical syndrome, but has been stable on his current medication. On the day of admission, he developed fever, tachycardia, leukocytosis, and hypoxia. He came to [facility] ER and was admitted. PAST MEDICAL HISTORY: The patient has intracerebral hemorrhage that was followed by respiratory failure. He had to be intubated and placed on mechanical ventilation. He was unable to be weaned and underwent tracheostomy and gastrostomy. In addition to the , the patient is now in chronic respiratory failure. His [place] Coma Scale is 7. In addition, the patient has seizure disorder, high blood pressure, diabetes mellitus, morbid obesity, hyperlipidemia, and hypervitaminosis D. ALLERGIES: No known drug allergies. MEDICATIONS: The patient is on respiratory therapy with albuterol sulfate, ipratropium bromide inhalation therapy every 6 hours. He is on multivitamin daily. He is on zinc sulfate 220 mg daily. He is on Tylenol 650 q.6 hours p.r.n. for fever and pain. He is on sliding scale regular insulin of moderate intensity. He is on Lantus insulin 20 units at bedtime and 10 units in the a.m., metformin 500 mg b.i.d. He is on lisinopril 20 mg daily. FAMILY HISTORY: Noncontributory. SOCIAL HISTORY: He is . His is daily at his bedside. HABITS: The patient did not smoke, drink, or use illicit drugs. REVIEW OF SYSTEMS: The patient is unable to give any information regarding his state of health. PHYSICAL EXAMINATION: VITAL SIGNS: Blood pressure is 108/75 with pulse 87, respirations 16, and temperature 97.9. HEENT: Eyes were normal. Pupils were round, equal, and reacting to light. Sclerae were white. Conjunctivae were pink. Extraocular movements were normal. Temporal arteries were palpable bilaterally. There was no bilateral temporal wasting. Visual peres to confrontation were normal. Neglect sign was negative. ENT, mucous membranes were not dehydrated. Auditory canals were clear and tympanic membranes could not be visualized. Nasal cavity was not congested. Nasal septum was intact. Soft palate was free of ulceration. It was poorly visualized. Tongue was midline and normally papillated. NECK: Supple. There was no goiter. No mass. No lymphadenopathy. There was no JVD no bruits. Carotid upstroke was 2+. LUNGS: Clear. There were bilateral rhonchi at both bases, more on the left than on the right. HEART: PMI was at fifth left intercostal space in midclavicular line. There was normal S1 and normal S2. There was no murmur. No arrhythmia. No S3. No S4. No pericardial rub. ABDOMEN: Soft, obese, and nontender without organomegaly. There were no masses palpable. Normal bowel sounds without bruits. There was no guarding. No rebound tenderness. No ascites. No hernia. No CVA tenderness. Liver span was 8 cm, mostly nontender. EXTREMITIES: No cyanosis, no clubbing, and no edema. Extremities were warm. NEUROLOGICAL: Reflexes in biceps, triceps, and brachioradialis were present. Patellar retinaculum was present. Plantar were in extension bilaterally. Cranial nerves from II through XII were symmetric and equal. Cerebellar function, there was no tremor. No nystagmus. No extrapyramidal rigidity. Sensory exam to pinprick, cotton touch, position, and motor strength was not assessed because the patient in deep coma. The patient was opening his eyes to pain and flexed forward to pain, but did not respond to any oral signal with stimuli. LABORATORY AND DIAGNOSTIC DATA: Hemoglobin is 12.3, hematocrit 36.7, MCV of 87, WBC 11.0, and platelets 277. His BUN and creatinine are 14 and 0.5 respectively. His sodium is 140, potassium 3.9, chloride 105, and CO2 is 25. His ammonia is 31. Troponin is not detected. His albumin is 3.4. Total protein is 9.6. Chest x-ray showed bilateral atelectasis, more on the left than on the right. IMPRESSION: 1. The patient is status post intracerebral hemorrhage, craniotomy, cardiotomy, and gastrostomy. His [place] Coma Scale is 7. 2. The patient is respirator dependent. We will continue the same respiratory setting. Continue with albuterol sulfate and ipratropium bromide inhalation therapy every 4 hours. 3. The patient is fed via gastrostomy. Continue with Fibersource per hour. 4. The patient had leukocytosis and sepsis. He is currently on Zosyn 3.375 gram IV piggyback q.12 hours and vancomycin 1 g IV piggyback q.12 hours. Repeat laboratory tests will be done in the a.m. Pulmonary senior energy consultant was consulted to assist in the management of this case. Liset Wallace M.D. DR: FRAN JOB#: [id number] CC:
[2018-04-13] MEDS: Albuterol/Ipratropium 3ml neb HHN SCH ×4 (01:18→19:34)
[2018-04-13 04:00] VITALS: BP 147/81
[2018-04-13 04:57] LABS: BASOPHILS % (AUTO) 0.7 % (0.0-2.0); EOSINOPHILS % (AUTO) 2.4 % (0.0-3.0); HEMATOCRIT 40.9 % (42.0-52.0); HEMOGLOBIN 13.5 G/DL (14.2-18.0); MEAN CORPUSCULAR VOLUME 86 FL (80-99); MONOCYTES % (AUTO) 9.4 % (1.0-10.0); NEUTROPHILS % (AUTO) 67.6 % (45.0-75.0); PLATELET COUNT 289 K/UL (150-450); RED BLOOD COUNT 4.74 M/UL (4.70-6.10); RED CELL DISTRIBUTION WIDTH 13.3 % (11.6-14.8); WHITE BLOOD COUNT 9.8 K/UL (4.8-10.8)
[2018-04-13] MEDS: Cefepime HCl 1 GM in D5W 55 ML IVPB SCH ×2 (05:06→17:40)
[2018-04-13] MEDS: NovoLOG Insulin Flexpen SUBQ SCH ×3 (05:08→17:39)
[2018-04-13 05:21] LABS: ALANINE AMINOTRANSFERASE 51 U/L (12-78); ALBUMIN 3.1 G/DL (3.4-5.0); ALBUMIN/GLOBULIN RATIO 0.6 (1.0-2.7); ALKALINE PHOSPHATASE 75 U/L (46-116); ANION GAP 11 mmol/L (5-15); ASPARTATE AMINO TRANSFERASE 27 U/L (15-37); BILIRUBIN,TOTAL 0.4 MG/DL (0.2-1.0); BLOOD UREA NITROGEN 11 mg/dL (7-18); CALCIUM 9.7 MG/DL (8.5-10.1); CARBON DIOXIDE 26 MMOL/L (21-32); CHLORIDE 104 MMOL/L (98-107); CREATININE 0.7 MG/DL (0.55-1.30); PHOSPHORUS 4.3 MG/DL (2.5-4.9); POTASSIUM 4.2 MMOL/L (3.5-5.1); SODIUM 141 MMOL/L (136-145)
[2018-04-13 08:00] VITALS: BP 108/70
[2018-04-13] MEDS: Multivitamins W/Minerals 15 ML UDC GT SCH (08:57)
[2018-04-13] MEDS: metFORMIN 500mg tab GT SCH ×2 (08:58→17:35)
[2018-04-13] MEDS: Magnesium Oxide 400mg tab GT SCH (08:58)
[2018-04-13] MEDS: levETIRAcetam 500mg/5ml Liquid GT SCH ×2 (08:58→17:36)
[2018-04-13] MEDS: Levemir Flexpen SUBQ SCH ×2 (09:04→20:39)
[2018-04-13] MEDS: Heparin 5000 units/ml inj SUBQ SCH ×2 (09:05→20:40)
--- NOTE | 2018-04-13 09:26 | Consultation ---
Consult Note Consult Note HEMATOLOGY-ONCOLOGY CONSULT NOTE REFERRING PHYSICIAN: Liset Wallace REASON FOR CONSULT: Leukocytosis, anemia DATE OF CONSULT: 04/13/2018 ID [id number] old male a resident of an extended care facility subacute unit, in stable condition over the last several months. He is known to have several chronic medical syndrome, but has been stable on his current medication. On the day of admission, he developed fever, tachycardia, leukocytosis, and hypoxia. He came to [facility] ER and was admitted. Hematology services consulted for the evaluation of leukocytosis and anemia. Labs and imaging have been reviewed. Currently started on abx. PAST MEDICAL HISTORY: The patient has intracerebral hemorrhage that was Followed by respiratory failure. He had to be intubated and placed on mechanical ventilation. He was unable to be weaned and underwent tracheostomy and gastrostomy. In addition to the, the patient is now in chronic respiratory failure. His [place] Coma Scale is 7. In addition, the patient has seizure disorder, high blood pressure, diabetes mellitus, morbid obesity, hyperlipidemia, and hypervitaminosis D. ALLERGIES: No known drug allergies. MEDICATIONS: The patient is on respiratory therapy with albuterol sulfate, ipratropium bromide inhalation therapy every 6 hours. He is on multivitamin daily. He is on zinc sulfate 220 mg daily. He is on Tylenol 650 q.6 hours p.r.n. for fever and pain. He is on sliding scale regular insulin of moderate intensity. He is on Lantus insulin 20 units at bedtime and 10 units in the a.m. , metformin 500 mg b.i.d. He is on lisinopril 20 mg daily. FAMILY HISTORY: Noncontributory. SOCIAL HISTORY: He is . His is daily at his bedside. HABITS: The patient did not smoke, drink, or use illicit drugs. REVIEW OF SYSTEMS: The patient is unable to give any information regarding his state of health. Physical Exam Narrative HEENT: normocephalic, bilateral eye PERRL, moist mucus membranes Neck: normal inspection, supple, tracheotomy - site c/d/i Respiratory: chest non-tender, lungs clear, normal breath sounds, chest symmetrical, palpation of chest normal Cardiovascular : normal peripheral pulses, regular rate, rhythm Gastrointestinal: normal inspection, non tender, soft, no mass, no guarding, no rebound, other - feeding tube c/d/i Genitourinary: normal inspection, no CVA tenderness Musculoskeletal: back normal, gait/station normal, normal range of motion, non- tender, no calf tenderness Neurologic: alert Skin: normal color, no darrell Laboratory Tests Test 04/13/18 04:35 White Blood Count 9.8 K/UL (4.8-10.8) Red Blood Count 4.74 M/UL (4.70-6.10) Hemoglobin 13.5 G/DL (14.2-18.0) L Hematocrit 40.9 % (42.0-52.0) L Mean Corpuscular Volume 86 FL (80-99) Mean Corpuscular Hemoglobin 28.6 PG (27.0-31.0) Mean Corpuscular Hemoglobin Concent 33.1 G/DL (32.0-36.0) Red Cell Distribution Width 13.3 % (11.6-14.8) Platelet Count 289 K/UL (150-450) Mean Platelet Volume 8.7 FL (6.5-10.1) Neutrophils (%) (Auto) 67.6 % (45.0-75.0) Lymphocytes (%) (Auto) 20.0 % (20.0-45.0) Monocytes (%) (Auto) 9.4 % (1.0-10.0) Eosinophils (%) (Auto) 2.4 % (0.0-3.0) Basophils (%) (Auto) 0.7 % (0.0-2.0) Erythrocyte Sedimentation Rate 10 MM/HR (0-15) Sodium Level 141 MMOL/L (136-145) Potassium Level 4.2 MMOL/L (3.5-5.1) Chloride Level 104 MMOL/L (98-107) Carbon Dioxide Level 26 MMOL/L (21-32) Anion Gap 11 mmol/L (5-15) Blood Urea Nitrogen 11 mg/dL (7-18) Creatinine 0.7 MG/DL (0.55-1.30) Estimat Glomerular Filtration Rate > 60 mL/min (>60) Glucose Level 159 MG/DL (74-106) H Calcium Level 9.7 MG/DL (8.5-10.1) Phosphorus Level 4.3 MG/DL (2.5-4.9) Magnesium Level 1.5 MG/DL (1.8-2.4) L Total Bilirubin 0.4 MG/DL (0.2-1.0) Aspartate Amino Transf (AST/SGOT) 27 U/L (15-37) Alanine Aminotransferase (ALT/SGPT) 51 U/L (12-78) Alkaline Phosphatase 75 U/L (46-116) C-Reactive Protein, Quantitative 2.5 mg/dL (0.00-0.90) H Total Protein 8.5 G/DL (6.4-8.2) H Albumin 3.1 G/DL (3.4-5.0) L Globulin 5.4 g/dL Albumin/Globulin Ratio 0.6 (1.0-2.7) L Current Medications Medications (Trade) Dose Ordered Sig/Tony Route PRN Reason Start Time Stop Time Status Last Admin Dose Admin Acetaminophen (Tylenol) 650 mg Q4H PRN GT PAIN 1-3 OR TEMP > 100.4 04/12/18 03:00 05/12/18 02:59 Albuterol/ Ipratropium (Albuterol/ Ipratropium) 3 ml Q6HRT N 04/12/18 07:00 04/17/18 06:59 04/13/18 07:07 Cefepime HCl 1 gm/ Dextrose 55 ml @ 110 mls/hr Q12H IVPB 04/12/18 18:00 04/19/18 17:59 04/13/18 05:06 Chlorhexidine Gluconate (Kay-Hex 2%) 1 applic DAILY@2000 TOPIC 04/12/18 20:00 05/12/18 19:59 Heparin Sodium (Porcine) (Heparin 5000 units/ml) 5,000 units EVERY 12 HOURS SUBQ 04/12/18 09:00 05/12/18 08:59 04/13/18 09:05 Insulin Aspart (NovoLOG) HumaLOG Solution 100 unit... Q6H SUBQ 04/12/18 06:00 05/12/18 05:59 04/13/18 05:08 Insulin Detemir (Leve[facility]) [facility] DAILY@0900 [facility] 04/12/[facility] 09:00 05/12/18 08:59 04/13/18 09:04 Insulin Detemir (Levemir) 20 units QHS SUBQ 04/12/18 21:00 05/12/18 20:59 04/12/18 20:46 Lansoprazole (Prevacid) 30 mg BID GT 04/12/18 09:00 05/12/18 08:59 04/13/18 08:58 Levetiracetam (Keppra) 500 mg TWICE A DAY GT 04/12/18 09:00 05/12/18 08:59 04/13/18 08:58 Magnesium Oxide (Mag-Ox 400mg) 400 mg DAILY GT 04/12/18 09:00 05/12/18 08:59 04/13/18 08:58 Metformin HCl (Glucophage) 1,000 mg BID GT 04/12/18 09:00 05/12/18 08:59 04/13/18 08:58 Multivitamins (Multivitamins W/ Minerals 15ml Liquid) 15 ml DAILY GT 04/12/18 09:00 05/12/18 08:59 04/13/18 08:57 Last 24 Hour Vital Signs Date Time Temp Pulse Resp B/P (MAP) Pulse Ox O2 Delivery O2 Flow Rate FiO2 04/13/18 09:01 64 12 30 04/13/18 08:00 63 04/13/18 08:00 Mechanical Ventilator 04/13/18 08:00 97.9 73 12 108/70 (83) 100 04/13/18 08:00 30 04/13/18 07:17 68 12 100 Mechanical Ventilator 30 04/13/18 07:07 62 12 100 Mechanical Ventilator 30 04/13/18 07:07 62 12 30 04/13/18 05:15 67 19 30 04/13/18 04:00 Mechanical Ventilator 04/13/18 04:00 77 04/13/18 04:00 30 04/13/18 04:00 98.7 71 12 147/81 (103) 100 04/13/18 03:25 80 12 30 04/13/18 01:25 88 12 100 Mechanical Ventilator 30 04/13/18 01:15 84 15 30 04/13/18 01:15 84 15 100 Mechanical Ventilator 30 04/13/18 00:00 30 04/13/18 00:00 98.8 82 13 126/84 (98) 100 04/13/18 00:00 82 04/13/18 00:00 Mechanical Ventilator 04/12/18 23:24 84 15 30 04/12/18 21:30 95 18 30 04/12/18 20:00 97 11/30/18 20:00 30 04/12/18 20:00 98.6 101 22 139/85 (103) 100 04/12/18 20:00 Mechanical Ventilator 04/12/18 19:40 99 18 100 Mechanical Ventilator 30 04/12/18 19:30 96 21 100 Mechanical Ventilator 30 04/12/18 19:30 96 21 30 04/12/18 17:00 83 12 30 04/12/18 16:13 91 04/12/18 16:00 Mechanical Ventilator 04/12/18 16:00 97.9 87 16 108/75 (86) 100 04/12/18 16:00 30 04/12/18 14:30 86 17 30 04/12/18 13:21 78 12 99 Mechanical Ventilator 30 04/12/18 13:11 75 12 99 Mechanical Ventilator 30 04/12/18 12:35 76 13 30 04/12/18 12:00 62 04/12/18 12:00 Mechanical Ventilator 04/12/18 12:00 30 04/12/18 12:00 98.3 69 16 99/63 (75) 100 ASSESSMENT AND RECOMMENDATIONS: # Protein albumin dissociation, with elev protein, and decreased alb --> obtain spep at this time, if abnl then consider immunofix # Leukocytosis is likely related to underyling UTI --> has been started on abx, is on cefepime at this time # Anemia of chronic disease --> trend as needed # Chronic cholecystitis s/p cholecystostomy tube # chronic resp failure vent/trach dependant # Asthma/COPD # HTN # Dm2 # Dementia # CVA s/p vegetative state # dysphagia s/p G-tube # seizure disorder # SNF resident GREATLY APPRECIATE CONSULTATION. Manolo Solares MD Apr 13, 2018 09:26
--- NOTE | 2018-04-13 11:46 | Infectious Diseases Prog Note ---
Assessment/Plan Assessment/Plan Assessment: Sepsis- likely 2ry to UTI -u/a wbc 15-20, nit +, leuk +1 ;ucx 70-80k GNR -CXR: no acute disease -influenza sc neg Afebrile Mild leukocytosis, SP chronic cholecystitis s/p cholecystostomy tube asthma/COPD HTN Dm2 Dementia CVA s/p vegetative state chronic resp failure vent/trach dependant dysphagia s/p G-tube seizure disorder SNF resident Plan: -Continue empiric Cefepime #2 pending urine culture -04/11 SP Unasyn x1 -4/2 SP Zosyn # 7 / 7 - 08/11/17 SP IV Vancomcyin # 3 -f/u cx -Monitor CBC/CMP, temperatures Thank you for this consultation. Will continue to follow along with you. Discussed with RN. Subjective Allergies: Coded Allergies: NO KNOWN DRUG ALLERGIES (Unverified Allergy, Unknown, 06/28/15) Objective Vital Signs Last 24 Hour Vital Signs Date Time Temp Pulse Resp B/P (MAP) Pulse Ox O2 Delivery O2 Flow Rate FiO2 04/13/18 10:45 69 12 30 04/13/18 09:01 64 12 30 04/13/18 08:00 63 04/13/18 08:00 Mechanical Ventilator 04/13/18 08:00 97.9 73 12 108/70 (83) 100 04/13/18 08:00 30 04/13/18 07:17 68 12 100 Mechanical Ventilator 30 04/13/18 07:07 62 12 100 Mechanical Ventilator 30 04/13/18 07:07 62 12 30 04/13/18 05:15 67 19 30 04/13/18 04:00 Mechanical Ventilator 04/13/18 04:00 77 04/13/18 04:00 30 04/13/18 04:00 98.7 71 12 147/81 (103) 100 04/13/18 03:25 80 12 30 04/13/18 01:25 88 12 100 Mechanical Ventilator 30 04/13/18 01:15 84 15 30 04/13/18 01:15 84 15 100 Mechanical Ventilator 30 04/13/18 00:00 30 04/13/18 00:00 98.8 82 13 126/84 (98) 100 04/13/18 00:00 82 04/13/18 00:00 Mechanical Ventilator 04/12/18 23:24 84 15 30 04/12/18 21:30 95 18 30 04/12/18 20:00 97 04/12/18 20:00 30 04/12/18 20:00 98.6 101 22 139/85 (103) 100 04/12/18 20:00 Mechanical Ventilator 04/12/18 19:40 99 18 100 Mechanical Ventilator 30 04/12/18 19:30 96 21 100 Mechanical Ventilator 30 04/12/18 19:30 96 21 30 04/12/18 17:00 83 12 30 04/12/18 16:13 91 04/12/18 16:00 Mechanical Ventilator 04/12/18 16:00 97.9 87 16 108/75 (86) 100 04/12/18 16:00 30 04/12/18 14:30 86 17 30 04/12/18 13:21 78 12 99 Mechanical Ventilator 30 04/12/18 13:11 75 12 99 Mechanical Ventilator 30 04/12/18 12:35 76 13 30 04/12/18 12:00 62 04/12/18 12:00 Mechanical Ventilator 04/12/18 12:00 30 04/12/18 12:00 98.3 69 16 99/63 (75) 100 Height (Feet): 5 Height (Inches): 8.00 Weight (Pounds): 140 Objective HEENT: normocephalic, bilateral eye PERRL, moist mucus membranes Neck: normal inspection, supple, supple/symm/no masses, tracheotomy - site c/d/ i Respiratory: chest non-tender, lungs clear, normal breath sounds, chest symmetrical, palpation of chest normal Cardiovascular : normal peripheral pulses, regular rate, rhythm Gastrointestinal: normal inspection, non tender, soft, no mass, no guarding, no rebound, other - feeding tube c/d/i Genitourinary: normal inspection, no CVA tenderness Musculoskeletal: back normal, gait/station normal, normal range of motion, non- tender, no calf tenderness Neurologic: alert Skin: normal color, no rash, warm/dry, normal turgor Microbiology Date/Time Source Procedure Growth Status 04/11/18 19:10 Blood Blood Culture - Preliminary NO GROWTH AFTER 24 HOURS Resulted 04/11/18 19:00 Blood Blood Culture - Preliminary NO GROWTH AFTER 24 HOURS Resulted 04/12/18 16:30 Sputum Gram Stain - Final Resulted 04/12/18 16:30 Sputum Sputum Culture Pending Resulted 04/11/18 19:20 Nasal Nares Influenza Types A,B Antigen (ECHO) - Final Complete 04/12/18 16:30 Indwelling Cath Urine Culture - Preliminary NO GROWTH Resulted 04/11/18 19:18 Urine,Clean Catch Urine Culture - Preliminary Gram Negative To Resulted Laboratory Tests Test 04/13/18 04:35 04/13/18 11:05 White Blood Count 9.8 K/UL (4.8-10.8) Red Blood Count 4.74 M/UL (4.70-6.10) Hemoglobin 13.5 G/DL (14.2-18.0) L Hematocrit 40.9 % (42.0-52.0) L Mean Corpuscular Volume 86 FL (80-99) Mean Corpuscular Hemoglobin 28.6 PG (27.0-31.0) Mean Corpuscular Hemoglobin Concent 33.1 G/DL (32.0-36.0) Red Cell Distribution Width 13.3 % (11.6-14.8) Platelet Count 289 K/UL (150-450) Mean Platelet Volume 8.7 FL (6.5-10.1) Neutrophils (%) (Auto) 67.6 % (45.0-75.0) Lymphocytes (%) (Auto) 20.0 % (20.0-45.0) Monocytes (%) (Auto) 9.4 % (1.0-10.0) Eosinophils (%) (Auto) 2.4 % (0.0-3.0) Basophils (%) (Auto) 0.7 % (0.0-2.0) Erythrocyte Sedimentation Rate 10 MM/HR (0-15) Sodium Level 141 MMOL/L (136-145) Potassium Level 4.2 MMOL/L (3.5-5.1) Chloride Level 104 MMOL/L (98-107) Carbon Dioxide Level 26 MMOL/L (21-32) Anion Gap 11 mmol/L (5-15) Blood Urea Nitrogen 11 mg/dL (7-18) Creatinine 0.7 MG/DL (0.55-1.30) Estimat Glomerular Filtration Rate > 60 mL/min (>60) Glucose Level 159 MG/DL (74-106) H Calcium Level 9.7 MG/DL (8.5-10.1) Phosphorus Level 4.3 MG/DL (2.5-4.9) Magnesium Level 1.5 MG/DL (1.8-2.4) L Total Bilirubin 0.4 MG/DL (0.2-1.0) Aspartate Amino Transf (AST/SGOT) 27 U/L (15-37) Alanine Aminotransferase (ALT/SGPT) 51 U/L (12-78) Alkaline Phosphatase 75 U/L (46-116) C-Reactive Protein, Quantitative 2.5 mg/dL (0.00-0.90) H Total Protein 8.5 G/DL (6.4-8.2) H Albumin 3.1 G/DL (3.4-5.0) L Globulin 5.4 g/dL Albumin/Globulin Ratio 0.6 (1.0-2.7) L Pending Total Protein (PEP) Pending Albumin (PEP) Pending Globulin (PEP) Pending Gsetr-[id number] Pending [id number]-[id number] Pending Beta Globulins Pending Beta Gamma Globulin Pending PEP Abnormal Protein Bands Pending Protein Electrophoresis Interpret Pending Current Medications Medications (Trade) Dose Ordered Sig/Tony Route PRN Reason Start Time Stop Time Status Last Admin Dose Admin Acetaminophen (Tylenol) 650 mg Q4H PRN GT PAIN 1-3 OR TEMP > 100.4 04/12/18 03:00 05/12/18 02:59 Albuterol/ Ipratropium (Albuterol/ Ipratropium) 3 ml Q6HRT HHN 04/12/18 07:00 04/17/18 06:59 04/13/18 07:07 Cefepime HCl 1 gm/ Dextrose 55 ml @ 110 mls/hr Q12H IVPB 04/12/18 18:00 04/19/18 17:59 04/13/18 05:06 Chlorhexidine Gluconate (Kay-Hex 2%) 1 applic DAILY@2000 TOPIC 04/12/18 20:00 05/12/18 19:59 Heparin Sodium (Porcine) (Heparin 5000 units/ml) 5,000 units EVERY 12 HOURS SUBQ 04/12/18 09:00 05/12/18 08:59 04/13/18 09:05 Insulin Aspart (NovoLOG) HumaLOG Solution 100 unit... Q6H SUBQ 04/12/18 06:00 05/12/18 05:59 04/13/18 05:08 Insulin Detemir (Levemir) 10 units DAILY@0900 SUBQ 04/12/18 09:00 05/12/18 08:59 04/13/18 09:04 Insulin Detemir (Levemir) 20 units QHS SUBQ 04/12/18 21:00 05/12/18 20:59 04/12/18 20:46 Lansoprazole (Prevacid) 30 mg BID GT 04/12/18 09:00 05/12/18 08:59 04/13/18 08:58 Levetiracetam (Keppra) 500 mg TWICE A DAY GT 04/12/18 09:00 05/12/18 08:59 04/13/18 08:58 Magnesium Oxide (Mag-Ox 400mg) 400 mg DAILY GT 04/12/18 09:00 05/12/18 08:59 04/13/18 08:58 Metformin HCl (Glucophage) 1,000 mg BID GT 04/12/18 09:00 05/12/18 08:59 04/13/18 08:58 Multivitamins (Multivitamins W/ Minerals 15ml Liquid) 15 ml DAILY GT 04/12/18 09:00 05/12/18 08:59 04/13/18 08:57 Laura Gimenez M.D. Apr 13, 2018 11:46
[2018-04-13 12:00] VITALS: BP 112/81
--- NOTE | 2018-04-13 14:53 | Cardiology Report ---
APPROVED REPORT EKG Measurement Heart [id number] Normal sinus rhythm Normal ECG
[2018-04-13 16:00] VITALS: BP 118/82
[2018-04-13] MEDS ORDERED: Tubing IV Secondary IV ONE (16:00)
[2018-04-13] MEDS ORDERED: NS 275ml ONE (16:00)
[2018-04-13] MEDS: Dyna-Hex 2% Top Sol 2oz TOPIC SCH (19:39)
[2018-04-13 20:00] VITALS: BP 116/77
[2018-04-14] VITALS: BP 110/67
[2018-04-14] MEDS: Albuterol/Ipratropium 3ml neb HHN SCH ×4 (01:11→19:42)
--- NOTE | 2018-04-14 03:00 | Progress Note ---
DATE: 04/13/2018 SUBJECTIVE: The patient is awake, alert, afebrile, and hemodynamically stable. His eyes are open, but he has no eye contact. PHYSICAL EXAMINATION: VITAL SIGNS: Blood pressure is 116/77, his pulse is 83, respirations of 14, and temperature 98.8. HEENT: Eyes were normal. ENT, mucous membranes were moist and intact. NECK: Supple with no JVD without lymph nodes. Tracheostomy site is clean. LUNGS: Clear without rhonchi, rales, or wheezing. Secretions are small, thin, and pale yellow. HEART: Normal sounds with regular beats. There is no S3, S4, or pericardial rub. ABDOMEN: Soft and nontender with normal bowel sounds. Gastrostomy site is clean. EXTREMITIES: Warm without cyanosis, clubbing, or edema. LABORATORY AND DIAGNOSTIC DATA: Hemoglobin is 13.5, hematocrit is 40.9 with MCV of 86, WBC of 9.8, and platelets is 289,000. His BUN and creatinine is 11 and 0.7 respectively. His sodium is 141, potassium 4.2, chloride 104, and CO2 is 26. His phosphorus is 9.7. IMPRESSION AND PLAN: 1. Sepsis. 2. The patient has . Continue respiratory therapy every four hours. 3. The patient has hypertension . The patient is taking medications neurological exam cannot be performed. However, the patient condition has markedly improved since yesterday till today. Repeat laboratory test will be done in the a.m. Liset Wallace M.D. DR: MELIZA JOB#: [id number] CC:
[2018-04-14 04:00] VITALS: BP 120/79
[2018-04-14 04:58] LABS: BASOPHILS % (AUTO) 0.7 % (0.0-2.0); EOSINOPHILS % (AUTO) 1.8 % (0.0-3.0); HEMATOCRIT 39.9 % (42.0-52.0); HEMOGLOBIN 13.2 G/DL (14.2-18.0); LYMPHOCYTES % (AUTO) 19.6 % (20.0-45.0); MEAN CORPUSCULAR VOLUME 87 FL (80-99); MONOCYTES % (AUTO) 8.9 % (1.0-10.0); PLATELET COUNT 302 K/UL (150-450); RED CELL DISTRIBUTION WIDTH 13.2 % (11.6-14.8); WHITE BLOOD COUNT 9.6 K/UL (4.8-10.8)
[2018-04-14 05:17] LABS: ANION GAP 11 mmol/L (5-15); BLOOD UREA NITROGEN 12 mg/dL (7-18); CALCIUM 9.7 MG/DL (8.5-10.1); CARBON DIOXIDE 27 MMOL/L (21-32); CHLORIDE 103 MMOL/L (98-107); CREATININE 0.8 MG/DL (0.55-1.30); SODIUM 140 MMOL/L (136-145)
[2018-04-14] MEDS: Cefepime HCl 1 GM in D5W 55 ML IVPB SCH ×2 (05:29→17:37)
[2018-04-14] MEDS: NovoLOG Insulin Flexpen SUBQ SCH ×5 (05:30→23:46)
[2018-04-14 08:00] VITALS: BP 111/76
[2018-04-14] MEDS: Multivitamins W/Minerals 15 ML UDC GT SCH (08:55)
[2018-04-14] MEDS: metFORMIN 500mg tab GT SCH ×2 (08:56→17:38)
[2018-04-14] MEDS: levETIRAcetam 500mg/5ml Liquid GT SCH ×2 (08:56→17:38)
[2018-04-14] MEDS: Magnesium Oxide 400mg tab GT SCH (08:57)
[2018-04-14] MEDS: Levemir Flexpen SUBQ SCH ×2 (08:59→20:54)
[2018-04-14] MEDS: Heparin 5000 units/ml inj SUBQ SCH ×2 (09:00→20:54)
[2018-04-14 12:00] VITALS: BP 119/81
--- NOTE | 2018-04-14 13:21 | General Progress Note ---
Assessment/Plan Status: unchanged Assessment/Plan # Protein albumin dissociation, with elev protein, and decreased alb --> obtain spep at this time, if abnl then consider immunofix - pending # Leukocytosis is likely related to underling UTI --> Has improved/resolved --> remains on abx, is on cefepime at this time # Anemia of chronic disease, mild. No w/u required at this time. --> Cont to monitor for stability # Chronic cholecystitis s/p cholecystostomy tube # chronic resp failure vent/trach dependant # Asthma/COPD # HTN # Dm2 # Dementia # CVA s/p vegetative state # dysphagia s/p G-tube # seizure disorder # SNF resident GREATLY APPRECIATE CONSULTATION. Subjective Date patient seen: Apr 14, 2018 ROS Limited/Unobtainable: Yes Hematologic/Lymphatic: Reports: anemia Allergies: Coded Allergies: NO KNOWN DRUG ALLERGIES (Unverified Allergy, Unknown, 06/28/15) Subjective Pt remains nonverbal, on trach. No acute events. H/H stable. VS stable. Objective Last 24 Hour Vital Signs Date Time Temp Pulse Resp B/P (MAP) Pulse Ox O2 Delivery O2 Flow Rate FiO2 04/14/18 13:11 75 18 99 Mechanical Ventilator 30 04/14/18 13:10 87 19 30 04/14/18 12:00 30 04/14/18 12:00 Mechanical Ventilator 04/14/18 10:46 81 12 30 04/14/18 09:01 83 12 30 04/14/18 08:00 30 04/14/18 08:00 Mechanical Ventilator 04/14/18 08:00 98.1 89 18 111/76 (88) 99 04/14/18 08:00 86 04/14/18 07:10 82 12 100 Mechanical Ventilator 30 04/14/18 07:04 81 16 30 04/14/18 07:03 81 16 98 Mechanical Ventilator 30 04/14/18 04:59 95 19 30 04/14/18 04:00 98.7 17 17 120/79 (93) 100 04/14/18 04:00 Mechanical Ventilator 04/14/18 04:00 78 04/14/18 04:00 30 04/14/18 03:30 82 16 30 04/14/18 01:19 83 15 100 Mechanical Ventilator 30 04/14/18 01:12 81 13 30 04/14/18 01:03 79 14 98 Mechanical Ventilator 30 04/14/18 00:00 98 04/14/18 00:00 Mechanical Ventilator 04/14/18 00:00 30 04/14/18 00:00 98.8 82 17 110/67 (81) 100 04/13/18 23:29 82 17 30 04/13/18 21:15 84 18 30 04/13/18 20:00 83 04/13/18 20:00 98.8 82 14 116/77 (90) 99 04/13/18 20:00 Mechanical Ventilator 04/13/18 20:00 30 04/13/18 19:42 84 14 96 Mechanical Ventilator 30 04/13/18 19:30 81 14 30 04/13/18 19:30 81 14 93 Mechanical Ventilator 30 04/13/18 17:27 84 18 30 04/13/18 16:00 73 04/13/18 16:00 30 04/13/18 16:00 98.2 75 14 118/82 (94) 100 04/13/18 16:00 Mechanical Ventilator 04/13/18 14:52 67 12 30 Intake and Output 04/13/18 04/14/18 19:00 07:00 Intake Total 775 ml 780 ml Output Total 425 ml 300 ml Balance 350 ml 480 ml IV Total 55 ml Tube Feeding 720 ml 780 ml Output Urine Total 425 ml 300 ml # Bowel Movements 1 Laboratory Tests 04/14/18 03:30: Sodium Level 140, Potassium Level 4.0, Chloride Level 103, Carbon Dioxide Level 27, Anion Gap 11, Blood Urea Nitrogen 12, Creatinine 0.8, Estimat Glomerular Filtration Rate > 60, Glucose Level 165H, Calcium Level 9.7, Magnesium Level 1.6L 04/14/18 03:35: White Blood Count 9.6, Red Blood Count 4.60L, Hemoglobin 13.2L, Hematocrit 39.9L , Mean Corpuscular Volume 87, Mean Corpuscular Hemoglobin 28.8, Mean Corpuscular Hemoglobin Concent 33.1, Red Cell Distribution Width 13.2, Platelet Count 302, Mean Platelet Volume 8.5, Neutrophils (%) (Auto) 69.0, Lymphocytes (% ) (Auto) 19.6L, Monocytes (%) (Auto) 8.9, Eosinophils (%) (Auto) 1.8, Basophils (%) (Auto) 0.7 Height (Feet): 5 Height (Inches): 8.00 Weight (Pounds): 140 Objective Physical Exam HEENT: normocephalic, bilateral eye PERRL, moist mucus membranes Neck: normal inspection, supple, tracheotomy - site c/d/i Respiratory: chest non-tender, lungs clear, normal breath sounds, chest symmetrical, palpation of chest normal Cardiovascular : normal peripheral pulses, regular rate, rhythm Gastrointestinal: normal inspection, non tender, soft, no mass, no guarding, no rebound, other - feeding tube c/d/i Genitourinary: normal inspection, no CVA tenderness Musculoskeletal: back normal, gait/station normal, normal range of motion, non- tender, no calf tenderness Neurologic: alert Skin: normal color, no darrell Manolo Solares MD Apr 14, 2018 13:21
[2018-04-14 16:00] VITALS: BP 98/70
[2018-04-14 20:00] VITALS: BP 107/76
[2018-04-14] MEDS: Dyna-Hex 2% Top Sol 2oz TOPIC SCH (20:00)
[2018-04-15] VITALS: BP 140/78
[2018-04-15] MEDS: Albuterol/Ipratropium 3ml neb HHN SCH ×3 (01:47→13:15)
--- NOTE | 2018-04-15 02:15 | Progress Note ---
DATE: 04/14/2018 SUBJECTIVE: The patient is afebrile and hemodynamically stable. PHYSICAL EXAMINATION: VITAL SIGNS: Blood pressure is 107/66, pulse is 68, respirations of 14, and temperature 98.1. HEENT: Eyes were normal. ENT, mucous membranes were moist and intact. NECK: Supple with no JVD without lymph nodes. Tracheostomy site is clean. LUNGS: Clear without rhonchi, rales, or wheezing. Secretions are small, thin, and sullivan. HEART: Normal sounds with regular beats. There is no S3, S4, or pericardial rub. ABDOMEN: Soft and nontender with normal bowel sounds. EXTREMITIES: Warm without cyanosis, clubbing, or edema. LABORATORY AND DIAGNOSTIC DATA: His hemoglobin is 13.2, hematocrit , MCV of 87, WBC of 9.6, and platelets of 302,000. His BUN and creatinine are 12 and 0.8 respectively. His sodium is 140, potassium 4.0, chloride 103, and CO2 27. His calcium is 9.7. His magnesium is 1.6. His latest x-ray from April 12, 2018, bilateral atelectasis. IMPRESSION: The patient clinically is improving. He is afebrile and hemodynamically stable without tachycardia. Repeat laboratory tests will be done in the a.m. Liset Wallace M.D. DR: KHUSHI JOB#: [id number] CC:
[2018-04-15 04:00] VITALS: BP 114/64
[2018-04-15 05:27] LABS: BASOPHILS % (AUTO) 0.9 % (0.0-2.0); EOSINOPHILS % (AUTO) 2.4 % (0.0-3.0); HEMATOCRIT 39.6 % (42.0-52.0); HEMOGLOBIN 13.1 G/DL (14.2-18.0); LYMPHOCYTES % (AUTO) 17.5 % (20.0-45.0); MEAN CORPUSCULAR VOLUME 87 FL (80-99); MONOCYTES % (AUTO) 7.7 % (1.0-10.0); NEUTROPHILS % (AUTO) 71.5 % (45.0-75.0); PLATELET COUNT 296 K/UL (150-450); RED BLOOD COUNT 4.56 M/UL (4.70-6.10); RED CELL DISTRIBUTION WIDTH 13.3 % (11.6-14.8); WHITE BLOOD COUNT 9.8 K/UL (4.8-10.8)
[2018-04-15 05:58] LABS: ANION GAP 14 mmol/L (5-15); BLOOD UREA NITROGEN 13 mg/dL (7-18); CALCIUM 9.6 MG/DL (8.5-10.1); CARBON DIOXIDE 23 MMOL/L (21-32); CHLORIDE 105 MMOL/L (98-107); CREATININE 0.7 MG/DL (0.55-1.30); POTASSIUM 3.7 MMOL/L (3.5-5.1); SODIUM 141 MMOL/L (136-145)
[2018-04-15] MEDS: NovoLOG Insulin Flexpen SUBQ SCH ×3 (06:26→17:52)
[2018-04-15] MEDS: Cefepime HCl 1 GM in D5W 55 ML IVPB SCH ×2 (06:31→17:47)
[2018-04-15 08:00] VITALS: BP 122/79
[2018-04-15] MEDS: Magnesium Oxide 400mg tab GT SCH (08:58)
[2018-04-15] MEDS: metFORMIN 500mg tab GT SCH ×2 (08:58→17:47)
[2018-04-15] MEDS: levETIRAcetam 500mg/5ml Liquid GT SCH ×2 (08:59→17:47)
[2018-04-15] MEDS: Multivitamins W/Minerals 15 ML UDC GT SCH (08:59)
[2018-04-15] MEDS: Heparin 5000 units/ml inj SUBQ SCH (09:00)
[2018-04-15] MEDS: Levemir Flexpen SUBQ SCH (09:06)
[2018-04-15 12:00] VITALS: BP 125/76
--- NOTE | 2018-04-15 12:59 | General Progress Note ---
Assessment/Plan Status: stable, unchanged Assessment/Plan # Protein albumin dissociation, with elev protein, and decreased alb --> obtain spep at this time, if abnl then consider immunofix - pending # Leukocytosis is likely related to underling UTI --> Has improved/resolved --> remains on abx, is on cefepime at this time # Anemia of chronic disease, mild. No w/u required at this time. --> Cont to monitor for stability # Chronic cholecystitis s/p cholecystostomy tube # chronic resp failure vent/trach dependant # Asthma/COPD # HTN. # DM2. Cont metformin and insulin. # Dementia # CVA s/p vegetative state # Dysphagia s/p G-tube # SNF resident GREATLY APPRECIATE CONSULTATION. Subjective Date patient seen: Apr 15, 2018 ROS Limited/Unobtainable: Yes Allergies: Coded Allergies: NO KNOWN DRUG ALLERGIES (Unverified Allergy, Unknown, 06/28/15) Subjective Pt remains nonverbal, on trach. No acute events. H/H stable. VS stable. Objective Last 24 Hour Vital Signs Date Time Temp Pulse Resp B/P (MAP) Pulse Ox O2 Delivery O2 Flow Rate FiO2 04/15/18 12:00 99.3 95 20 125/76 (92) 97 04/15/18 12:00 30 04/15/18 12:00 Mechanical Ventilator 04/15/18 11:00 90 21 30 04/15/18 09:26 94 21 30 04/15/18 08:00 Mechanical Ventilator 04/15/18 08:00 98.8 92 18 122/79 (93) 99 04/15/18 08:00 30 04/15/18 08:00 87 04/15/18 07:14 86 12 98 Mechanical Ventilator 30 04/15/18 07:04 86 14 99 Mechanical Ventilator 30 04/15/18 06:54 86 14 30 04/15/18 04:55 84 13 30 04/15/18 04:00 30 04/15/18 04:00 98.2 83 20 114/64 (81) 97 04/15/18 04:00 Mechanical Ventilator 04/15/18 04:00 87 04/15/18 02:43 87 12 30 04/15/18 01:55 78 12 98 Mechanical Ventilator 30 04/15/18 01:48 79 12 30 04/15/18 01:47 97 12 98 Mechanical Ventilator 30 04/15/18 00:00 98.4 75 20 140/78 (98) 97 04/15/18 00:00 Mechanical Ventilator 04/15/18 00:00 86 04/14/18 23:17 88 14 30 04/14/18 21:14 105 18 30 04/14/18 20:00 30 04/14/18 20:00 Mechanical Ventilator 04/14/18 20:00 98.1 78 14 107/76 (86) 97 04/14/18 20:00 68 04/14/18 19:49 81 12 99 Mechanical Ventilator 30 04/14/18 19:42 78 18 97 Mechanical Ventilator 30 04/14/18 19:42 78 15 30 04/14/18 17:14 65 14 30 04/14/18 16:00 Mechanical Ventilator 04/14/18 16:00 68 04/14/18 16:00 97.7 62 12 98/70 (79) 100 04/14/18 16:00 30 04/14/18 14:34 77 18 30 04/14/18 13:19 76 16 99 Mechanical Ventilator 30 04/14/18 13:11 75 18 99 Mechanical Ventilator 30 04/14/18 13:10 87 19 30 Intake and Output 04/14/18 04/15/18 19:00 07:00 Intake Total 875 ml 825 ml Output Total 400 ml 380 ml Balance 475 ml 445 ml IV Total 55 ml 55 ml Tube Feeding 720 ml 720 ml Other 100 ml 50 ml Output Urine Total 400 ml 380 ml # Bowel Movements 2 1 Laboratory Tests 04/15/18 04:15: White Blood Count 9.8, Red Blood Count 4.56L, Hemoglobin 13.1L, Hematocrit 39.6L , Mean Corpuscular Volume 87, Mean Corpuscular Hemoglobin 28.8, Mean Corpuscular Hemoglobin Concent 33.2, Red Cell Distribution Width 13.3, Platelet Count 296, Mean Platelet Volume 8.4, Neutrophils (%) (Auto) 71.5, Lymphocytes (% ) (Auto) 17.5L, Monocytes (%) (Auto) 7.7, Eosinophils (%) (Auto) 2.4, Basophils (%) (Auto) 0.9, Sodium Level 141, Potassium Level 3.7, Chloride Level 105, Carbon Dioxide Level 23, Anion Gap 14, Blood Urea Nitrogen 13, Creatinine 0.7, Estimat Glomerular Filtration Rate > 60, Glucose Level 167H, Calcium Level 9.6, Immunoglobulin G [Pending], Immunoglobulin A [Pending], Immunoglobulin M [ Pending], Immunofixation Screen [Pending] Height (Feet): 5 Height (Inches): 8.00 Weight (Pounds): 140 Objective Physical Exam HEENT: normocephalic, bilateral eye PERRL, moist mucus membranes Neck: normal inspection, supple, tracheotomy - site c/d/i Respiratory: chest non-tender, lungs clear, normal breath sounds, chest symmetrical, palpation of chest normal Cardiovascular : normal peripheral pulses, regular rate, rhythm Gastrointestinal: normal inspection, non tender, soft, no mass, no guarding, no rebound, other - feeding tube c/d/i Genitourinary: normal inspection, no CVA tenderness Musculoskeletal: back normal, gait/station normal, normal range of motion, non- tender, no calf tenderness Neurologic: alert Skin: normal color, no darrell Manolo Solares MD Apr 15, 2018 12:59
--- NOTE | 2018-04-15 13:10 | Diagnostic Imaging Report ---
APPROVED REPORT CPT Code: 09169 Present Symptoms Comments: BILATERAL LEGS PAIN. BILATERAL: Imaging reveals a patent deep venous system bilaterally. There is no evidence of thrombus within the femoral, popliteal or tibial segments. The greater saphenous veins are also within normal limits. Doppler indicates normal spontaneous flow within these segments.
--- NOTE | 2018-04-15 13:48 | Infectious Diseases Prog Note ---
Assessment/Plan Assessment/Plan Assessment: Sepsis, SP- likely 2ry to UTI -u/a wbc 15-20, nit +, leuk +1 ;ucx 70-80k PsA (R Cipro/levo, otherwise S); repeat ucx PsA -CXR: no acute disease; sp cx S. marcences ( R ancef, otherwise S); colonizer -influenza sc neg -Bcx NTD Afebrile Mild leukocytosis, SP chronic cholecystitis s/p cholecystostomy tube asthma/COPD HTN Dm2 Dementia CVA s/p vegetative state chronic resp failure vent/trach dependant dysphagia s/p G-tube seizure disorder SNF resident Plan: -Continue Cefepime #4/7 for PsA UTI -ok to discharge on this regimen -04/11 SP Unasyn x1 -/ SP Zosyn # 7 / 7 - 08/11/17 SP IV Vancomcyin # 3 -f/u cx -Monitor CBC/CMP, temperatures Thank you for this consultation. Will continue to follow along with you. Discussed with RN. Subjective Allergies: Coded Allergies: NO KNOWN DRUG ALLERGIES (Unverified Allergy, Unknown, 06/28/15) Subjective afebrile no leukocytosis Bcx NTD Objective Vital Signs Last 24 Hour Vital Signs Date Time Temp Pulse Resp B/P (MAP) Pulse Ox O2 Delivery O2 Flow Rate FiO2 04/15/18 13:15 93 16 99 Mechanical Ventilator 30 04/15/18 13:13 93 16 30 04/15/18 12:00 99.3 95 20 125/76 (92) 97 04/15/18 12:00 30 04/15/18 12:00 Mechanical Ventilator 04/15/18 11:00 90 21 30 04/15/18 09:26 94 21 30 04/15/18 08:00 Mechanical Ventilator 04/15/18 08:00 98.8 92 18 122/79 (93) 99 04/15/18 08:00 30 04/15/18 08:00 87 04/15/18 07:14 86 12 98 Mechanical Ventilator 30 04/15/18 07:04 86 14 99 Mechanical Ventilator 30 04/15/18 06:54 86 14 30 04/15/18 04:55 84 13 30 04/15/18 04:00 30 04/15/18 04:00 98.2 83 20 114/64 (81) 97 04/15/18 04:00 Mechanical Ventilator 04/15/18 04:00 87 04/15/18 02:43 87 12 30 04/15/18 01:55 78 12 98 Mechanical Ventilator 30 04/15/18 01:48 79 12 30 04/15/18 01:47 97 12 98 Mechanical Ventilator 30 04/15/18 00:00 98.4 75 20 140/78 (98) 97 04/15/18 00:00 Mechanical Ventilator 04/15/18 00:00 86 04/14/18 23:17 88 14 30 04/14/18 21:14 105 18 30 04/14/18 20:00 30 04/14/18 20:00 Mechanical Ventilator 04/14/18 20:00 98.1 78 14 107/76 (86) 97 04/14/18 20:00 68 04/14/18 19:49 81 12 99 Mechanical Ventilator 30 04/14/18 19:42 78 18 97 Mechanical Ventilator 30 04/14/18 19:42 78 15 30 04/14/18 17:14 65 14 30 04/14/18 16:00 Mechanical Ventilator 04/14/18 16:00 68 04/14/18 16:00 97.7 62 12 98/70 (79) 100 04/14/18 16:00 30 04/14/18 14:34 77 18 30 Height (Feet): 5 Height (Inches): 8.00 Weight (Pounds): 140 Objective HEENT: normocephalic, bilateral eye PERRL, moist mucus membranes Neck: normal inspection, supple, supple/symm/no masses, tracheotomy - site c/d/ i Respiratory: chest non-tender, lungs clear, normal breath sounds, chest symmetrical, palpation of chest normal Cardiovascular : normal peripheral pulses, regular rate, rhythm Gastrointestinal: normal inspection, non tender, soft, no mass, no guarding, no rebound, other - feeding tube c/d/i Genitourinary: normal inspection, no CVA tenderness Musculoskeletal: back normal, gait/station normal, normal range of motion, non- tender, no calf tenderness Neurologic: alert Skin: normal color, no rash, warm/dry, normal turgor Microbiology Date/Time Source Procedure Growth Status 04/12/18 16:30 Sputum Gram Stain - Final Complete 04/12/18 16:30 Sputum Culture - Final Serratia Marcescens Usual Respiratory Shraddha Complete 04/12/18 16:30 Indwelling Cath Urine Culture - Final Pseudomonas Aeruginosa Complete Laboratory Tests Test 04/15/18 04:15 White Blood Count 9.8 K/UL (4.8-10.8) Red Blood Count 4.56 M/UL (4.70-6.10) L Hemoglobin 13.1 G/DL (14.2-18.0) L Hematocrit 39.6 % (42.0-52.0) L Mean Corpuscular Volume 87 FL (80-99) Mean Corpuscular Hemoglobin 28.8 PG (27.0-31.0) Mean Corpuscular Hemoglobin Concent 33.2 G/DL (32.0-36.0) Red Cell Distribution Width 13.3 % (11.6-14.8) Platelet Count 296 K/UL (150-450) Mean Platelet Volume 8.4 FL (6.5-10.1) Neutrophils (%) (Auto) 71.5 % (45.0-75.0) Lymphocytes (%) (Auto) 17.5 % (20.0-45.0) L Monocytes (%) (Auto) 7.7 % (1.0-10.0) Eosinophils (%) (Auto) 2.4 % (0.0-3.0) Basophils (%) (Auto) 0.9 % (0.0-2.0) Sodium Level 141 MMOL/L (136-145) Potassium Level 3.7 MMOL/L (3.5-5.1) Chloride Level 105 MMOL/L (98-107) Carbon Dioxide Level 23 MMOL/L (21-32) Anion Gap 14 mmol/L (5-15) Blood Urea Nitrogen 13 mg/dL (7-18) Creatinine 0.7 MG/DL (0.55-1.30) Estimat Glomerular Filtration Rate > 60 mL/min (>60) Glucose Level 167 MG/DL (74-106) H Calcium Level 9.6 MG/DL (8.5-10.1) Immunoglobulin G Pending Immunoglobulin A Pending Immunoglobulin M Pending Immunofixation Screen Pending Current Medications Medications (Trade) Dose Ordered Sig/Tony Route PRN Reason Start Time Stop Time Status Last Admin Dose Admin Acetaminophen (Tylenol) 650 mg Q4H PRN GT PAIN 1-3 OR TEMP > 100.4 04/12/18 03:00 05/12/18 02:59 Albuterol/ Ipratropium (Albuterol/ Ipratropium) 3 ml Q6HRT HHN 04/12/18 07:00 04/17/18 06:59 04/15/18 13:15 Cefepime HCl 1 gm/ Dextrose 55 ml @ 110 mls/hr Q12H IVPB 04/12/18 18:00 04/19/18 17:59 04/15/18 06:31 Chlorhexidine Gluconate (Kay-Hex 2%) 1 applic DAILY@2000 TOPIC 04/12/18 20:00 05/12/18 19:59 04/14/18 20:00 Heparin Sodium (Porcine) (Heparin 5000 units/ml) 5,000 units EVERY 12 HOURS SUBQ 04/12/18 09:00 05/12/18 08:59 04/14/18 20:54 Insulin Aspart (NovoLOG) HumaLOG Solution 100 unit... Q6H SUBQ 04/12/18 06:00 05/12/18 05:59 04/15/18 12:17 Insulin Detemir (Levemir) 10 units DAILY@0900 SUBQ 04/12/18 09:00 05/12/18 08:59 04/15/18 09:06 Insulin Detemir (Levemir) 20 units QHS SUBQ 04/12/18 21:00 05/12/18 20:59 04/14/18 20:54 Lansoprazole (Prevacid) 30 mg BID GT 04/12/18 09:00 05/12/18 08:59 04/15/18 08:58 Levetiracetam (Keppra) 500 mg TWICE A DAY GT 04/12/18 09:00 05/12/18 08:59 04/15/18 08:59 Magnesium Oxide (Mag-Ox 400mg) 400 mg DAILY GT 04/12/18 09:00 05/12/18 08:59 04/15/18 08:58 Metformin HCl (Glucophage) 1,000 mg BID GT 04/12/18 09:00 05/12/18 08:59 04/15/18 08:58 Multivitamins (Multivitamins W/ Minerals 15ml Liquid) 15 ml DAILY GT 04/12/18 09:00 05/12/18 08:59 04/15/18 08:59 Laura Gimenez M.D. Apr 15, 2018 13:48
--- NOTE | 2018-04-15 15:15 | Pulmonology Progress Note ---
Subjective Allergies: Coded Allergies: NO KNOWN DRUG ALLERGIES (Unverified Allergy, Unknown, 06/28/15) Objective Last 24 Hour Vital Signs Date Time Temp Pulse Resp B/P (MAP) Pulse Ox O2 Delivery O2 Flow Rate FiO2 04/15/18 14:41 98 12 30 04/15/18 13:25 96 12 97 Mechanical Ventilator 30 04/15/18 13:15 93 16 99 Mechanical Ventilator 30 04/15/18 13:13 93 16 30 04/15/18 12:00 99.3 95 20 125/76 (92) 97 04/15/18 12:00 30 04/15/18 12:00 91 04/15/18 12:00 Mechanical Ventilator 04/15/18 11:00 90 21 30 04/15/18 09:26 94 21 30 04/15/18 08:00 Mechanical Ventilator 04/15/18 08:00 98.8 92 18 122/79 (93) 99 04/15/18 08:00 30 04/15/18 08:00 87 04/15/18 07:14 86 12 98 Mechanical Ventilator 30 04/15/18 07:04 86 14 99 Mechanical Ventilator 30 04/15/18 06:54 86 14 30 04/15/18 04:55 84 13 30 04/15/18 04:00 30 04/15/18 04:00 98.2 83 20 114/64 (81) 97 04/15/18 04:00 Mechanical Ventilator 04/15/18 04:00 87 04/15/18 02:43 87 12 30 04/15/18 01:55 78 12 98 Mechanical Ventilator 30 04/15/18 01:48 79 12 30 04/15/18 01:47 97 12 98 Mechanical Ventilator 30 04/15/18 00:00 98.4 75 20 140/78 (98) 97 04/15/18 00:00 Mechanical Ventilator 04/15/18 00:00 86 04/14/18 23:17 88 14 30 04/14/18 21:14 105 18 30 04/14/18 20:00 30 04/14/18 20:00 Mechanical Ventilator 04/14/18 20:00 98.1 78 14 107/76 (86) 97 04/14/18 20:00 68 04/14/18 19:49 81 12 99 Mechanical Ventilator 30 04/14/18 19:42 78 18 97 Mechanical Ventilator 30 04/14/18 19:42 78 15 30 04/14/18 17:14 65 14 30 04/14/18 16:00 Mechanical Ventilator 04/14/18 16:00 68 04/14/18 16:00 97.7 62 12 98/70 (79) 100 04/14/18 16:00 30 Intake and Output 04/14/18 04/15/18 19:00 07:00 Intake Total 875 ml 825 ml Output Total 400 ml 380 ml Balance 475 ml 445 ml IV Total 55 ml 55 ml Tube Feeding 720 ml 720 ml Other 100 ml 50 ml Output Urine Total 400 ml 380 ml # Bowel Movements 2 1 Microbiology Date/Time Source Procedure Growth Status 04/12/18 16:30 Sputum Gram Stain - Final Complete 04/12/18 16:30 Sputum Culture - Final Serratia Marcescens Usual Respiratory Shraddha Complete 04/12/18 16:30 Indwelling Cath Urine Culture - Final Pseudomonas Aeruginosa Complete Laboratory Tests 04/15/18 04:15: White Blood Count 9.8, Red Blood Count 4.56L, Hemoglobin 13.1L, Hematocrit 39.6L , Mean Corpuscular Volume 87, Mean Corpuscular Hemoglobin 28.8, Mean Corpuscular Hemoglobin Concent 33.2, Red Cell Distribution Width 13.3, Platelet Count 296, Mean Platelet Volume 8.4, Neutrophils (%) (Auto) 71.5, Lymphocytes (% ) (Auto) 17.5L, Monocytes (%) (Auto) 7.7, Eosinophils (%) (Auto) 2.4, Basophils (%) (Auto) 0.9, Sodium Level 141, Potassium Level 3.7, Chloride Level 105, Carbon Dioxide Level 23, Anion Gap 14, Blood Urea Nitrogen 13, Creatinine 0.7, Estimat Glomerular Filtration Rate > 60, Glucose Level 167H, Calcium Level 9.6, Immunoglobulin G [Pending], Immunoglobulin A [Pending], Immunoglobulin M [ Pending], Immunofixation Screen [Pending] Current Medications Medications (Trade) Dose Ordered Sig/Tony Route PRN Reason Start Time Stop Time Status Last Admin Dose Admin Acetaminophen (Tylenol) 650 mg Q4H PRN GT PAIN 1-3 OR TEMP > 100.4 04/12/18 03:00 05/12/18 02:59 Albuterol/ Ipratropium (Albuterol/ Ipratropium) 3 ml Q6HRT HHN 04/12/18 07:00 04/17/18 06:59 04/15/18 13:15 Cefepime HCl 1 gm/ Dextrose 55 ml @ 110 mls/hr Q12H IVPB 04/12/18 18:00 04/19/18 17:59 04/15/18 06:31 Chlorhexidine Gluconate (Kay-Hex 2%) 1 applic DAILY@2000 TOPIC 04/12/18 20:00 05/12/18 19:59 04/14/18 20:00 Heparin Sodium (Porcine) (Heparin 5000 units/ml) 5,000 units EVERY 12 HOURS SUBQ 04/12/18 09:00 05/12/18 08:59 04/14/18 20:54 Insulin Aspart (NovoLOG) HumaLOG Solution 100 unit... Q6H SUBQ 04/12/18 06:00 05/12/18 05:59 04/15/18 12:17 Insulin Detemir (Levemir) 10 units DAILY@0900 SUBQ 04/12/18 09:00 05/12/18 08:59 04/15/18 09:06 Insulin Detemir (Levemir) 20 units QHS SUBQ 04/12/18 21:00 05/12/18 20:59 04/14/18 20:54 Lansoprazole (Prevacid) 30 mg BID GT 04/12/18 09:00 05/12/18 08:59 04/15/18 08:58 Levetiracetam (Keppra) 500 mg TWICE A DAY GT 04/12/18 09:00 05/12/18 08:59 04/15/18 08:59 Magnesium Oxide (Mag-Ox 400mg) 400 mg DAILY GT 04/12/18 09:00 05/12/18 08:59 04/15/18 08:58 Metformin HCl (Glucophage) 1,000 mg BID GT 04/12/18 09:00 05/12/18 08:59 04/15/18 08:58 Multivitamins (Multivitamins W/ Minerals 15ml Liquid) 15 ml DAILY GT 04/12/18 09:00 05/12/18 08:59 04/15/18 08:59 Suzette Wallace MD Apr 15, 2018 15:15
[2018-04-15 16:00] VITALS: BP 115/74
--- NOTE | 2018-04-15 17:07 | Diagnostic Imaging Report ---
Indication: Shortness of breath Technique: One view of the chest Comparison: 04/12/2018 Findings: There is a tracheostomy. There is some stable scarring in the right perihilar region. Atelectatic changes are seen in the left lung base. There may be some consolidation in the retrocardiac region There is some pleural fluid on the left. Heart size is normal. Findings are similar to the previous study Impression: Unchanged, over 3 days, findings as above.
[2018-04-15] MEDS ORDERED: Tubing IV Secondary IV ONE (18:09)
--- NOTE | 2018-04-17 02:00 | Discharge Summary ---
DATE OF ADMISSION: 04/11/2018 DATE OF DISCHARGE: 04/15/2018 HISTORY: This is the third admission to [facility] of this 47-year-old patient because of sepsis. HISTORY OF PRESENT ILLNESS: Details of the event and circumstances that led the patient to be admitted to this medical unit can be found in H and P. In brief, the patient is a resident of an extended care facility subacute unit, where he has been in stable condition over the last several months. He is known to have several chronic medical syndrome and has been stable on current medication. The patient had intracerebral hemorrhage several months ago following, which he did have respiratory failure, had to be intubated, and placed on mechanical ventilation. He was unable to be weaned and underwent tracheostomy and gastrostomy and referred to subacute unit. In addition, the patient had seizure disorder, high blood pressure, and COPD. ALLERGIES: No known drug allergies. MEDICATIONS: The patient is nonrebreathing and in deep coma. HOSPITAL COURSE: Upon admission, the patient underwent clinical, biological, and imaging study. Clinical assessment revealed the patient was hemodynamically stable, afebrile, and had tachycardia. The following day, the patient was placed on broad-spectrum IV antibiotic and responded and within several days, the patient's clear imaging can be sort as well as improvement in the x-ray, WBCs, and clinical status. On 04/15/2018, the patient was discharged back to the extended care [facility] subacute unit where he will be seen in next 24 hours after discharge. Liset Wallace M.D. DR: BONNIE JOB#: [id number] CC:
--- NOTE | 2018-04-17 02:45 | Discharge Summary ---
DATE OF ADMISSION: 04/11/2018 NOTE: POOR AUDIO This is the first admission to [facility] of this 47-year-old man because of sepsis. HISTORY OF PRESENT ILLNESS: Details of the event and circumstances that led the patient to be admitted to this medical unit can be found in the History and Physical. In brief, the patient is a resident of an extended care facility of subacute unit where he has been in stable condition for the last several months. He is known to have several chronic medical syndrome, but he has been stable on his current medications. On the day of admission, he had tachycardia, hypotension, fever, and shortness of breath. He was transferred to [facility] ER and was admitted. HOSPITAL COURSE: Upon admission, the patient underwent clinical, biological, and imaging studies. The clinical assessment revealed that the patient is respirator dependent through tracheostomy and fed via gastrostomy tube. He was tachycardic, febrile. Chest x-ray revealed bilateral bibasilar infiltrates broad-spectrum antibiotics. Pulmonary consulted. Infectious Disease was called to assist in the management of this case . The patient was placed on Zosyn and vancomycin, 3.375 g IV piggyback q.6 h. and 1 g IV piggyback q.12 h. His condition rapidly improved. rapidly improved and tachycardia resolved. Leukocytosis resolved. Chest x-ray is clear is awake, alert, afebrile, hemodynamically stable eye contact. There is no tachycardia 98. His vital signs are normal. He extended care facility subacute unit where he will be seen in 24 hours after discharge. Liset Wallace M.D. DR: RAYMOND JOB#: [id number] CC:
== END 2018-04-15 18:10 | DRG 720 ==
LOC: EDBD 17:28 → EMR 19:02 → 2W 19:05 → EDBEDREQSVC 20:33 → EDBEDREQ 20:34
PROC: 5A1955Z Respiratory Ventilation, Greater than 96 Consecutive Hours (ICD-10-PCS; principal; 2018-04-11)
DX: A41.9 Sepsis, unspecified organism (principal); J96.20 Acute and chronic respiratory failure, unspecified whether with hypoxia or hypercapnia; Z99.11 Dependence on respirator [ventilator] status; R40.3 Persistent vegetative state; J44.9 Chronic obstructive pulmonary disease, unspecified; Z43.0 Encounter for attention to tracheostomy; E66.01 Morbid (severe) obesity due to excess calories; Z43.1 Encounter for attention to gastrostomy; I69.198 Other sequelae of nontraumatic intracerebral hemorrhage; N39.0 Urinary tract infection, site not specified; G40.909 Epilepsy, unspecified, not intractable, without status epilepticus; E11.9 Type 2 diabetes mellitus without complications; E78.5 Hyperlipidemia, unspecified; E67.3 Hypervitaminosis D; Z79.4 Long term (current) use of insulin; I10 Essential (primary) hypertension
CPT/HCPCS: 36415; 71045; 80048; 80053; 81003; 82140; 82550; 82553; 82784; 82962; 83036; 83605; 83735; 84100; 84165; 84484; 85025; 85610; 85651; 85730; 86140; 86334; 86710; 87040; 87070; 87086; 87181; 87205; 93005; 93970; 94002; 94003; 94640; 96360; 99285; J1815; J7620; S5561

== ENCOUNTER 2019-06-21 17:36 | Inpatient (IN) | payer MEDICAID ==
[~2019-06-21] VITALS: Ht 170.2 cm; Wt 76.8 kg
[2019-06-21] VITALS (11 sets, daily range): BP systolic 81–109; BP diastolic 44–57
[~2019-06-21 17:36] MED LIST changes: +BACITRACIN ZIN1 EACH TOPIC; +LACTULOSE20 GM/301 GT; +SKIN PROTECTAN113 GM TP; +VITAMIN D250000 UNI1 ORAL
[2019-06-21] MEDS ORDERED: Lidocaine 1% MPF 10mg/ml 5ml ONE ×2 (18:20→18:32)
--- NOTE | 2019-06-21 18:30 | NUR ---
ED Nurse Note: PT BROUGHT IN BY AMBULANCE FROM [facility] DUE TO OXYGEN DE-SATURATION AND HYPOTENSION. PER EMS, O2 SAT WENT DOWN BELOW 90%. EN ROUTE SBP 70 AND NS 1L WAS GIVEN BY EMS. BP UPON ARRIVAL 83/56. PT IS APHASIC, TRACH DEPENDENT AND UNABLE TO FOLLOW COMMANDS. LUNG WITH RHONCHI WHEN AUSCULTATED. ERMD AND RT AT THE BED SIDE.
[2019-06-21 18:31] LABS: INR 1.2 (0.9-1.1)
--- NOTE | 2019-06-21 18:38 | NUR ---
Yadira dias in EDM - 06/21/19 at 1846 by PARVEEN ED Nurse Note: DR CUENCA AT THE BED SIDE FOR INSERTION OF FEMORAL CENTRAL LINE.
--- NOTE | 2019-06-21 18:38 | NUR ---
ED Nurse Note: DR CUENCA AT THE BED SIDE FOR INSERTION OF RIGHT SUBCLAVIAN CENTRAL LINE.
[2019-06-21 18:41] LABS: ALANINE AMINOTRANSFERASE 17 U/L (12-78); ALBUMIN 1.9 G/DL (3.4-5.0); ALBUMIN/GLOBULIN RATIO 0.3 (1.0-2.7); ALKALINE PHOSPHATASE 89 U/L (46-116); ANION GAP 23 mmol/L (5-15); ASPARTATE AMINO TRANSFERASE 20 U/L (15-37); BILIRUBIN,TOTAL 0.3 MG/DL (0.2-1.0); BLOOD UREA NITROGEN 22 mg/dL (7-18); CALCIUM 10.3 MG/DL (8.5-10.1); CHLORIDE 105 MMOL/L (98-107); CKMB < 0.5 NG/ML (0.0-3.6); CREATINE KINASE 14 U/L (26-308); POTASSIUM 3.7 MMOL/L (3.5-5.1); SODIUM 137 MMOL/L (136-145)
[2019-06-21] MEDS ORDERED: Lidocaine 1% MPF 10mg/ml 5ml INJ ONE ×2 (18:45→19:00)
[2019-06-21 18:50] LABS: BASOPHILS % (AUTO) 0.3 % (0.0-2.0); EOSINOPHILS % (AUTO) 0.4 % (0.0-3.0); HEMATOCRIT 28.9 % (42.0-52.0); HEMOGLOBIN 9.1 G/DL (14.2-18.0); LYMPHOCYTES % (AUTO) 7.5 % (20.0-45.0); MEAN CORPUSCULAR VOLUME 81 FL (80-99); MONOCYTES % (AUTO) 7.9 % (1.0-10.0); PLATELET COUNT 332 K/UL (150-450); RED BLOOD COUNT 3.57 M/UL (4.70-6.10); RED CELL DISTRIBUTION WIDTH 16.3 % (11.6-14.8); WHITE BLOOD COUNT 8.5 K/UL (4.8-10.8)
[2019-06-21 18:51] LABS: APPEARANCE,URINE VERY CLOUDY; BILIRUBIN, URINE NEGATIVE (NEGATIVE); GLUCOSE, URINE (UA) NEGATIVE (NEGATIVE); KETONES,URINE 1+ (NEGATIVE); LEUKOCYTE ESTERASE ,URINE 3+ (NEGATIVE); NITRITE,URINE NEGATIVE (NEGATIVE); PH,URINE 5 (4.5-8.0); PROTEIN,URINE 3+ (NEGATIVE); UROBILINOGEN,URINE NORMAL MG/DL (0.0-1.0)
[2019-06-21 18:54] LABS: CARBON DIOXIDE 9 MMOL/L (21-32)
--- NOTE | 2019-06-21 18:54 | NUR ---
ED Nurse Note: DR CUENCA WAS NOTIFIED OF CO2 OF 9.
[2019-06-21 18:55] LABS: COLOR,URINE YELLOW
--- NOTE | 2019-06-21 19:19 | Emergency Room Report ---
History of Present Illness General Chief Complaint: Dyspnea/Respdistress Source: Patient Present Illness HPI Patient is a 48-year-old male sent in by nursing facility after increased respiratory distress. Patient gradual onset of symptoms.. 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 Prior history of insulin-dependent diabetes. He is normally ventilator and G-tube dependent. Allergies: Coded Allergies: NO KNOWN DRUG ALLERGIES (Unverified Allergy, Unknown, 06/28/15) Patient History Past Medical History: old chart reviewed Reviewed Nursing Documentation: PMH: Agreed; PSxH: Agreed Nursing Documentation-PMH Past Medical History: No History, Except For Hx Cardiac Problems: Yes Hx Hypertension: Yes Hx Asthma: Yes Hx COPD: Yes Hx Diabetes: Yes Hx Cancer: No Hx Gastrointestinal Problems: Yes - dysphagia Hx Neurological Problems: Yes - Persistent vegetative state Hx Cerebrovascular Accident: Yes Hx Seizures: Yes Hx Epilepsy: Yes Hx Paralysis: Yes Hx Memory Loss: Yes Hx Concentration Difficulty: Yes Hx Speech Problem: Yes - tracheostomy Hx Aphasia: Yes Hx Dysphasia: Yes Hx Weakness: Yes Review of Systems All Other Systems: limited - Limited by poor historian Physical Exam Vital Signs Date Time Temp Pulse Resp B/P (MAP) Pulse Ox O2 Delivery O2 Flow Rate FiO2 06/21/19 17:52 124 30 40 06/21/19 18:24 99.1 86/53 (64) 95 Mechanical Ventilator 15.0 Sp02 EP Interpretation: reviewed, normal General Appearance: alert, severe distress, Chronically Ill Head: atraumatic ENT: dry mucus membranes, other Neck: normal inspection, supple, no bony tend, limited range of motion, tracheotomy Respiratory: normal inspection, no respiratory distress, no retraction, no wheezing Cardiovascular #1: regular rate, rhythm, no edema Gastrointestinal: normal bowel sounds, soft, no guarding, no hernia Genitourinary: no CVA tenderness Musculoskeletal: normal range of motion, other - Bilateral upper and lower extremity motor weakness. Neurologic: alert, responsive, speech normal, normal inspection Psychiatric: judgement/insight normal, mood/affect normal Skin: no rash Procedures Critical Care Time Critical Care Time Patient had a critical medical condition which untreated could potentially result in life or limb threatening injury. Total critical care time excluding procedures approximately 45 minutes. Central Line Central Line : Consent: Emergent Central Line Lumen: triple Maximal Sterile Barrier Tech: yes cap, yes mask, yes sterile gown, yes sterile gloves, yes large sterile sheet, yes hand hygiene, yes chlorhexidine prep No Max Barrier Tech Because: emergency insertion Central Line Postion: subclavian (R) Anesthesia: Lidocaine cc's of anesthesia: 5 Complications: none Central Line Post Position: sutured, good blood return, position confirmed w / CXR - None none Attempts: One Patient Tolerated: Well Complications: None Medical Decision Making Diagnostic Impression: Primary Impression: Metabolic acidosis Additional Impressions: Iron deficiency anemia Chronic vegetative state Ventilator dependent Sepsis Acute and chronic respiratory failure ER Course Patient presented for increased respiratory distress. Differential diagnosis include was not limited to metabolic acidosis, anemia, diabetic ketoacidosis among others. Because of complexity of patient's case laboratory tests and imaging studies were ordered. Patient's laboratory testing showed metabolic acidosis with pH of 7.2 bicarb was noted to be markedly diminished. Chest x- ray showed some evidence of infiltrate to the right upper and left lower lung. Patient was noted to be tracheostomy dependent. He was given IV antibiotics. Dr.Assa Wallace was contacted for inpatient management agreed admit the patient ICU. Labs Test 06/21/19 17:50 06/21/19 18:00 Arterial Blood pH 7.207 (7.350-7.450) Arterial Blood Partial Pressure CO2 19.4 mmHg (35.0-45.0) Arterial Blood Partial Pressure O2 131.7 mmHg (75.0-100.0) Arterial Blood HCO3 7.5 mmol/L (22.0-26.0) Arterial Blood Oxygen Saturation 98.7 % (95-100) Arterial Blood Base Excess 98.7 (-2-2) Donald Test Positive White Blood Count 8.5 K/UL (4.8-10.8) Red Blood Count 3.57 M/UL (4.70-6.10) Hemoglobin 9.1 G/DL (14.2-18.0) Hematocrit 28.9 % (42.0-52.0) Mean Corpuscular Volume 81 FL (80-99) Mean Corpuscular Hemoglobin 25.5 PG (27.0-31.0) Mean Corpuscular Hemoglobin Concent 31.5 G/DL (32.0-36.0) Red Cell Distribution Width 16.3 % (11.6-14.8) Platelet Count 332 K/UL (150-450) Mean Platelet Volume 7.2 FL (6.5-10.1) Neutrophils (%) (Auto) 84.0 % (45.0-75.0) Lymphocytes (%) (Auto) 7.5 % (20.0-45.0) Monocytes (%) (Auto) 7.9 % (1.0-10.0) Eosinophils (%) (Auto) 0.4 % (0.0-3.0) Basophils (%) (Auto) 0.3 % (0.0-2.0) Prothrombin Time 12.9 SEC (9.30-11.50) Prothromb Time International Ratio 1.2 (0.9-1.1) Activated Partial Thromboplast Time 39 SEC (23-33) Urine Color Yellow Urine Appearance Very cloudy Urine pH 5 (4.5-8.0) Urine Specific [place] 1.010 (1.005-1.035) Urine Protein 3+ (NEGATIVE) Urine Glucose (UA) Negative (NEGATIVE) Urine Ketones 1+ (NEGATIVE) Urine Blood 5+ (NEGATIVE) Urine Nitrite Negative (NEGATIVE) Urine Bilirubin Negative (NEGATIVE) Urine Urobilinogen Normal MG/DL (0.0-1.0) Urine Leukocyte Esterase 3+ (NEGATIVE) Urine RBC Tntc /HPF (0 - 0) Urine WBC Tntc /HPF (0 - 0) Urine Squamous Epithelial Cells Few /LPF (NONE/OCC) Urine Bacteria Many /HPF (NONE) Sodium Level 137 MMOL/L (136-145) Potassium Level 3.7 MMOL/L (3.5-5.1) Chloride Level 105 MMOL/L (98-107) Carbon Dioxide Level 9 MMOL/L (21-32) Anion Gap 23 mmol/L (5-15) Blood Urea Nitrogen 22 mg/dL (7-18) Creatinine 1.0 MG/DL (0.55-1.30) Estimat Glomerular Filtration Rate > 60 mL/min (>60) Glucose Level 179 MG/DL (74-106) Lactic Acid Level 1.60 mmol/L (0.4-2.0) Calcium Level 10.3 MG/DL (8.5-10.1) Total Bilirubin 0.3 MG/DL (0.2-1.0) Aspartate Amino Transf (AST/SGOT) 20 U/L (15-37) Alanine Aminotransferase (ALT/SGPT) 17 U/L (12-78) Alkaline Phosphatase 89 U/L (46-116) Total Creatine Kinase 14 U/L (26-308) Creatine Kinase MB < 0.5 NG/ML (0.0-3.6) Creatine Kinase MB Relative Index 3.5 Troponin I 0.000 ng/mL (0.000-0.056) Total Protein 7.5 G/DL (6.4-8.2) Albumin 1.9 G/DL (3.4-5.0) Globulin 5.6 g/dL Albumin/Globulin Ratio 0.3 (1.0-2.7) Last Vital Signs Date Time Temp Pulse Resp B/P (MAP) Pulse Ox O2 Delivery O2 Flow Rate FiO2 06/21/19 18:28 125 35 Mechanical Ventilator 15.0 40 06/21/19 18:28 99.1 86/53 95 Status: unchanged Disposition: ADMITTED INPATIENT Condition: Critical Referrals: Liset Wallace MD (PCP) Jayden Clifton MD Jun 21, 2019 19:19
--- NOTE | 2019-06-21 19:31 | NUR ---
HAND-OFF: Report given to JAY JACKSON.
--- NOTE | 2019-06-21 19:36 | Diagnostic Imaging Report ---
EXAM: XR Chest, 1 View CLINICAL HISTORY: SOB TECHNIQUE: Frontal view of the chest. COMPARISON: 04/15/2018 FINDINGS: Lungs: New bilateral patchy airspace opacities in the left midlung an as well as the right upper lung concerning for multifocal pneumonia. Similar retrocardiac atelectasis or consolidation. Pleural space: Unremarkable. No pneumothorax. Heart: Unremarkable. No cardiomegaly. Mediastinum: Unremarkable. Bones/joints: Unremarkable. Tubes, lines and devices: Right subclavian approach central venous catheter, tip in the low SVC. Unchanged tracheostomy. IMPRESSION: 1. Right subclavian approach central venous catheter, tip in the low SVC. 2. Unchanged tracheostomy. 3. New bilateral patchy airspace opacities in the left midlung an as well as the right upper lung concerning for multifocal pneumonia. 4. Similar retrocardiac atelectasis or consolidation. 5. Recommend follow-up radiographs 8-12 weeks to document resolution.
--- NOTE | 2019-06-21 20:00 | NUR ---
ED Nurse Note: Recieved report to resume care, pt has room for hospital admission, will prepare to send to bed, pt in bed on ventilator, has increased heart rate at 126, MD aware, orders recieved for more IV fluids, pt at bedside, byrnes to gravity, g-tube patent, pt has pressure sores on sacryl area, repositioned and turned with pillow support, will resume care as ordered and closely monitor.
--- NOTE | 2019-06-21 20:20 | NUR ---
ED Nurse Note: Report given to MANUEL García on floor unit for pt admission, pt sife present, pt being transferred via gurney with acls protocols with ER-Tech, Respiratory Therapist, and [id number] noted during pt transport to unit.
--- NOTE | 2019-06-21 20:35 | NUR ---
NURSE NOTES: SULEIMAN Kiran BARREL COOPER. Patient admitted into bed F. Patient is non-berbal, obtunded but responds to painful stimulus. Patient is trach dependant portex 8, Ac 12, 600tv, 40% FiO2 and peep of 5. Patient has GT, abd is non-tender, rale lung sounds. Patient presented with Waddell from [facility]. Waddell is patent and hanging below bladder. Right Subclavian TLC noted with Zosyn abx from ER and NS bolus from ER. Wounds noted. Side rales are padded. Safety measures in place, will continue to monitor.
[2019-06-21] MEDS ORDERED: Piperacillin/Tazobactam 3.375 GM in NS 110 ML IVPB ONE (21:00)
--- NOTE | 2019-06-21 21:13 | NUR ---
NURSE NOTES: Called and left message to Dr. Wallace for admission orders.
--- NOTE | 2019-06-21 21:40 | NUR ---
NURSE NOTES: Called and left message to Dr. Wallace regarding Admission orders.
[2019-06-21] MEDS ORDERED: Albuterol ud Inhalation HHN PRN (22:00)
[2019-06-21] MEDS ORDERED: Miralax 17gm pkt GT PRN (22:00)
--- NOTE | 2019-06-21 22:00 | NUR ---
NURSE NOTES: Admission orders received from Dr. Dudley. Wound assessment and dressing done New Waddell catheter inserted, old Waddell from [facility] Abx and fluids hung Patient kept clean and dry Blood pressure is stable at this time HR is 120s Sinus tach
[2019-06-22] VITALS (42 sets, daily range): BP systolic 90–128; BP diastolic 48–94
--- NOTE | 2019-06-22 | NUR ---
NURSE NOTES: Repositioned Glucose 134, no coverage provided BP is stable, HR [address] ST no distress at this time. Deep suctioned and oral care given
[2019-06-22] MEDS: Acetaminophen 650mg/20.3ml GT PRN ×3 (00:54→20:51)
[2019-06-22] MEDS ORDERED: Albuterol ud Inhalation HHN SCH (01:00)
--- NOTE | 2019-06-22 01:00 | NUR ---
NURSE NOTES: Temperature of 100.5F Tylenol 650mg via Gt given Cooling measures given.
--- NOTE | 2019-06-22 02:00 | NUR ---
NURSE NOTES: repositioned central line dressing changed VS remains stable afebrile
--- NOTE | 2019-06-22 04:00 | NUR ---
NURSE NOTES: Patient repositioned bathed blood drawn and sent to lab afebrile NAD at this time
[2019-06-22] MEDS: Cefepime HCl 2 GM in D5W 55 ML IV SCH ×2 (05:21→12:42)
[2019-06-22] MEDS: Pantoprazole Inj IVP SCH (05:46)
[2019-06-22] MEDS: GlipiZIDE 5mg tab GT SCH (05:46)
[2019-06-22] MEDS: NovoLOG Insulin Flexpen SUBQ SCH ×4 (06:00→17:55)
--- NOTE | 2019-06-22 06:00 | NUR ---
NURSE NOTES: Repositioned Vitals remains stable Afebrile NAD HR remains ST 112
[2019-06-22 06:02] LABS: BASOPHILS % (AUTO) 0.3 % (0.0-2.0); EOSINOPHILS % (AUTO) 0.6 % (0.0-3.0); HEMATOCRIT 26.2 % (42.0-52.0); HEMOGLOBIN 8.1 G/DL (14.2-18.0); LYMPHOCYTES % (AUTO) 8.7 % (20.0-45.0); MEAN CORPUSCULAR VOLUME 82 FL (80-99); MONOCYTES % (AUTO) 7.3 % (1.0-10.0); NEUTROPHILS % (AUTO) 83.1 % (45.0-75.0); PLATELET COUNT 331 K/UL (150-450); RED BLOOD COUNT 3.18 M/UL (4.70-6.10); RED CELL DISTRIBUTION WIDTH 16.3 % (11.6-14.8); WHITE BLOOD COUNT 8.2 K/UL (4.8-10.8)
[2019-06-22 06:19] LABS: ALANINE AMINOTRANSFERASE 13 U/L (12-78); ALBUMIN 1.7 G/DL (3.4-5.0); ALKALINE PHOSPHATASE 82 U/L (46-116); ASPARTATE AMINO TRANSFERASE 15 U/L (15-37); BILIRUBIN,DIRECT < 0.1 MG/DL (0.0-0.3); BILIRUBIN,TOTAL 0.3 MG/DL (0.2-1.0)
[2019-06-22 06:56] LABS: ANION GAP 21 mmol/L (5-15); BLOOD UREA NITROGEN 18 mg/dL (7-18); CALCIUM 9.7 MG/DL (8.5-10.1); CHLORIDE 113 MMOL/L (98-107); CHOLESTEROL 104 MG/DL (< 200); CREATININE 0.9 MG/DL (0.55-1.30); HDL CHOLESTEROL 7 MG/DL (40-60); POTASSIUM 3.6 MMOL/L (3.5-5.1); SODIUM 143 MMOL/L (136-145); TRIGLYCERIDES 246 MG/DL (30-150)
[2019-06-22 06:57] LABS: CARBON DIOXIDE 9 MMOL/L (21-32)
--- NOTE | 2019-06-22 06:59 | NUR ---
RESPIRATORY NOTE: Received pt on trach cuffed Portex 8.0, secured with trach tie. Pt is obtunded, trach to vent with the settings: AC 12-600ml-40%-peep 5. Pt is tachycardia HR 107bpm, shallow tachypneic RR 27-30bpm, but not in resp distress. Suhail rhonchi B/S heard upon auscultation, suctioned small amount of thick culver yellow secretions without incidents. Alarms are set and audible, vent plugged into the red outlet. ambu bag is at bed side. Will continue to monitor.
--- NOTE | 2019-06-22 07:31 | NUR ---
HAND-OFF: Report given to Ponce JACKSON.
--- NOTE | 2019-06-22 07:32 | NUR ---
NURSE NOTES: Late entry: PT and report received from MANUEL Bauer; PT obtunded, open eyes continuously, no tracking of staff during morning rounds, trach to vent on portex 8, AC 12, TV 600, 40%, peep 5, no S/S of respiratory distress noted saturating at 100%, gtube feeding of glucerna 1.2 @ 40cc; received NPO status for US abdomen and pelvis; side rails padded for seizure precaution, PT received with sacral wound will perform wound care, and R-ear DTI; byrnes intact draining, PT has R-sub clav central line infusing NS @ 125cc/hr; and TKO; all lumens patent flushes well intact; will continue to monitor PT.
[2019-06-22] MEDS: Multivitamins W/Minerals 15 ML UDC GT SCH (09:46)
[2019-06-22] MEDS: Ascorbic Acid 500mg tab GT SCH (09:46)
[2019-06-22] MEDS: Heparin 5000 units/ml inj SUBQ SCH ×2 (09:47→20:52)
--- NOTE | 2019-06-22 10:39 | NUR ---
NURSE NOTES: PT remains in AFIB, will continue to monitor PT. Addendum: 06/22/19 at 1041 by Ponce Jara RN NURSE NOTES: Correction: PT remains in ST (not afib, wrong PT) will continue to monitor PT.
--- NOTE | 2019-06-22 10:53 | NUR ---
NURSE NOTES: PT was missing code status, verified code status with POLST in PT folder, PT is a full code, will place orders and update PT code status.
--- NOTE | 2019-06-22 12:00 | NUR ---
NURSE NOTES: Reported PT ABG results to MD Madison; orders given to place order for "2amps of bicarbonate Q6H until tomorrow." Will place orders on behalf of .
--- NOTE | 2019-06-22 13:27 | NUR ---
NURSE NOTES: Reported to MD Madison that both blood cultures came back positive with gram (-) rods. Will continue to monitor PT.
[2019-06-22] MEDS: Sodium Bicarbonate 50 ML in Sodium Chloride 1,000 ML IV SCH ×2 (14:19→21:04)
--- NOTE | 2019-06-22 14:46 | NUR ---
NURSE NOTES: PT placed on P200 mattress safely, weight prior to placing p200 mattress is 76.9kg. Will continue to monitor PT.
--- NOTE | 2019-06-22 15:10 | NUR ---
NURSE NOTES: Late entry: Glucerna 1.2 gtube feeding restarted, US completed for PT. Will continue to monitor PT.
--- NOTE | 2019-06-22 15:12 | NUR ---
NURSE NOTES: Reported to MD Madison about what antibiotics PT is currently on, reported PT has no known allergies, orders given to discontinue cefepime; ordered Ertapenem 1gm q24h. Will place orders on behalf of .
--- NOTE | 2019-06-22 15:44 | NUR ---
NURSE NOTES: Was informed by Pharmacy that Ertapenem is restricted to ID MD only; informed MD Madison that Ertapenem will be a one time order.
[2019-06-22] MEDS ORDERED: Ertapenem 1 GM in NS 55 ML IVPB SCH (17:00)
--- NOTE | 2019-06-22 18:24 | NUR ---
NURSE NOTES: PT is running a fever, will implement cooling measures with ice pack. Will continue to monitor.
--- NOTE | 2019-06-22 18:48 | NUR ---
NURSE NOTES: Cooling measures and medication successful, PT oral temperature is at 99.5; will continue to monitor.
--- NOTE | 2019-06-22 19:10 | NUR ---
RESPIRATORY NOTE: Received pt on AC 12, 600VT, 30%, PEEP +5. Pt is trach-dependent w/ a cuffed, Portex 8 tube. Pt flat effect/obtunded. B/S osmel. rhonchi, sxn small amounts of thick, culver-yellow secretions. Vent plugged into red outlet, ambubag at bedside. Pt in no apparent distress at this time. Will continue to monitor pt.
--- NOTE | 2019-06-22 19:25 | NUR ---
HAND-OFF: Report and PT given to MANUEL Bauer.
--- NOTE | 2019-06-22 19:35 | NUR ---
NURSE NOTES: SBAR from Ponce JACKSON. Patient is obtunded, open eyes continuously, no tracking of staff during morning rounds, trach to vent on Portex 8, AC 12, TV 600, 40%, peep 5, no S/S of respiratory distress noted saturating at 100%, gtube feeding of Glucerna 1.2 @ 30cc; side rails padded for seizure precaution, wounds noted, and R-ear DTI; Waddell intact draining, patient has R-sub clavian central line infusing NS @ 125cc/hr; and TKO; all lumens patent flushes well intact; will continue to monitor PT.
[2019-06-22 19:53] LABS: FERRITIN 92 NG/ML (8-388)
--- NOTE | 2019-06-22 20:00 | NUR ---
NURSE NOTES: Repositioned Oral care mukund given Suctioned VS stable Feeds ongoin
[2019-06-22] MEDS: Dyna-Hex 2% Top Sol 2oz TOPIC SCH (20:51)
--- NOTE | 2019-06-22 21:00 | NUR ---
NURSE NOTES: Temp 100.6F Tylenol 650mg given via GT
--- NOTE | 2019-06-22 22:00 | NUR ---
NURSE NOTES: Repositioned Cooling measures ongoing Suctioned VSS
[2019-06-22 22:03] LABS: % IRON SATURATION 4 % (15-50); IRON 6 ug/dL (50-175); TOTAL IRON BINDING CAPACITY 148 ug/dL (250-450)
[2019-06-23] VITALS (25 sets, daily range): BP systolic 91–118; BP diastolic 47–70
--- NOTE | 2019-06-23 | NUR ---
NURSE NOTES: Repositioned VSS Afebrile 98.8F Feeds ongoing no feed residual No BM yet.
--- NOTE | 2019-06-23 02:00 | NUR ---
NURSE NOTES: Oral care suctioned Repositioned Vitals stable
[2019-06-23] MEDS: Sodium Bicarbonate 50 ML in Sodium Chloride 1,000 ML IV SCH ×2 (03:07→09:55)
--- NOTE | 2019-06-23 04:00 | NUR ---
NURSE NOTES: Sponge bath given Oral care provided Suctioned Vitals are stable Afebrile: 99.4F BP stable Right forearm 20G inserted.
--- NOTE | 2019-06-23 04:01 | NUR ---
NURSE NOTES: Christian and prostat given
[2019-06-23] MEDS: NovoLOG Insulin Flexpen SUBQ SCH ×5 (05:28→23:31)
[2019-06-23] MEDS: GlipiZIDE 5mg tab GT SCH (05:28)
[2019-06-23] MEDS: Acetaminophen 650mg/20.3ml GT PRN ×2 (05:29→16:14)
[2019-06-23] MEDS: Pantoprazole Inj IVP SCH ×2 (05:30→21:23)
--- NOTE | 2019-06-23 05:30 | NUR ---
NURSE NOTES: temp: 100.6 Tylenol 650mg via Gt Cooling measures initiated
--- NOTE | 2019-06-23 06:07 | NUR ---
NURSE NOTES: Repositioned Cooling measures ongoing 100.3F (ax) Feeds ongoing minimal residuals
[2019-06-23 06:17] LABS: HEMATOCRIT 21.5 % (42.0-52.0); MEAN CORPUSCULAR VOLUME 81 FL (80-99); PLATELET COUNT 385 K/UL (150-450); RED BLOOD COUNT 2.66 M/UL (4.70-6.10); WHITE BLOOD COUNT 9.4 K/UL (4.8-10.8)
[2019-06-23 06:28] LABS: HEMOGLOBIN 6.9 G/DL (14.2-18.0)
[2019-06-23 06:35] LABS: ANION GAP 19 mmol/L (5-15); BLOOD UREA NITROGEN 16 mg/dL (7-18); CALCIUM 9.6 MG/DL (8.5-10.1); CARBON DIOXIDE 11 MMOL/L (21-32); CHLORIDE 120 MMOL/L (98-107); CREATININE 0.7 MG/DL (0.55-1.30); SODIUM 150 MMOL/L (136-145)
[2019-06-23 06:50] LABS: POTASSIUM 2.5 MMOL/L (3.5-5.1)
--- NOTE | 2019-06-23 06:52 | NUR ---
NURSE NOTES: Called Dr. Wallace and left message regarding low hemoglobin and low potassium level
--- NOTE | 2019-06-23 07:24 | NUR ---
NURSE NOTES: Dr. Wallace called back with orders for 2 units PRBC, type and cross and 40meq potassium PO BID
--- NOTE | 2019-06-23 07:25 | NUR ---
HAND-OFF: Report given to Annalisa hidalgo.
--- NOTE | 2019-06-23 07:26 | NUR ---
NURSE NOTES: Received patient from MANUEL Bauer. Patient eyes closed. Patient unresponsive to voice and touch at this time. Patient showing sinus rhythm on the pipeline technician with rate of 82 beats per minute. Patient trach to ventilator with setting of AC 12, tidal volume 600, FiO2 40%, and PEEP 5. Patient tolerating with SpO2 100% and RR 12. Patient has gastrostomy tube that is patent and running glucerna 1.2 at 40mL/hr at this time. NO residual noted. Patient has byrnes for urine retention that is patent and draining straw yellow urine at this time. Patient on low air loss mattress. Patient has a sacral full thickness pressure injury that is covered with dressing dry and intact. Patient has right AC 24 gauge peripheral IV and right subclavian TLC that are patent, asymptomatic, and right subclavian running Normal saline with bicard at 175mL/hr. Patient has Hgb of 6.9 this morning. 2 PRBC ordered. Will follow up. Patient has potassium level of 2.5 this morning. 40mEq K-dur one time dose ordered. Will follow up and administer. Patient temp 100 at this time with cooling measures in place. Will continue to monitor and administer medication as needed. Bed in low position with bed alarm on and call light in reach. Oral care and repositioning done at this time. Will continue to monitor.
[2019-06-23] MEDS: Heparin 5000 units/ml inj SUBQ SCH ×2 (09:00→21:00)
[2019-06-23] MEDS: Cefepime HCl 1 GM in D5W 55 ML IVPB SCH ×2 (09:03→21:24)
[2019-06-23] MEDS: Ascorbic Acid 500mg tab GT SCH (09:03)
[2019-06-23] MEDS: Multivitamins W/Minerals 15 ML UDC GT SCH (09:04)
--- NOTE | 2019-06-23 10:00 | NUR ---
NURSE NOTES: Vital signs stable. Will continue to monitor temperature. Patient repositioned at this time.
--- NOTE | 2019-06-23 10:19 | NUR ---
RD ASSESSMENT & RECOMMENDATIONS SEE CARE ACTIVITY FOR COMPLETE ASSESSMENT DAILY ESTIMATED NEEDS: Needs based on Critical care, wounds 73kg 22-30 kcals/kg 4979-1618 total kcals 1.25-2 g protein/kg 91-146 g total protein 25-30 mL/kg [id number] total fluid mLs NUTRITION DIAGNOSIS: 1) Increased kcal/pro needs R/T wound healing as evidenced by pt admitted w/ multiple wounds, sacral, BL buttocks full thickness. 2) Swallowing difficulty R/T respiratory status as evidenced by pt trach/PEG dep for all nutritional needs. CURRENT TF: Glucerna 1.2 @40/hr ENTERAL NUTRITION RECOMMENDATIONS: Glucerna 1.5 @ 50ml/hr x 24 hrs + Prosource x1 to provide 1200ml, 1800kcal, 99g + 11g prot, 911ml free water - Rec TF change to Glucerna 1.5 to better meet est kcal and protein needs - Start @ 20ml/hr x 6 hrs, increase by 10ml every 4-6 hrs to goal rate as tolerated - HOB 30-45 degrees/ water flush per MD ADDITIONAL RECOMMENDATIONS: 1. Maintain calibrated bed scale for accurate CBW 2. Wound healing: Add Christian 1pkt BID F/up w/ WC RN eval 3. Monitor lytes daily, replete as needed Elevated Na (150), rec increase water flushes 4. F/up w/ H&P
--- NOTE | 2019-06-23 10:21 | Pulmonolgy Critical Care Note ---
Critical Care - Asmt/Plan Problems: (1) Nosocomial pneumonia (2) Sepsis (3) Ventilator dependent (4) Chronic vegetative state (5) COPD (chronic obstructive pulmonary disease) (6) Feeding by G-tube (7) Diabetes mellitus, type II (8) Cerebral vascular disease (9) Seizure disorder (10) Chronic complete quadriplegia Respiratory: monitor respiratory rate, adjust FIO2, CXR Cardiac: continue pressors, continue to monitor HR/BP Renal: F/U I&O, keep IV fluid, check electrolytes Infectious Disease: check cultures, continue antibiotics Gastrointestinal: continue feedings/current rate Endocrine: monitor blood sugar Hematologic: monitor H/H, transfuse if hgb<8.5 - 2 units ordered Neurologic: PRN Ativan, keep patient comfortable Prophylaxis: Protonix Disposition: keep in ICU Notes Reviewed: cardio, renal Discussed with: nurses, consultants, correctional case managerautomation and controls manager - Objective Last 24 Hour Vital Signs Date Time Temp Pulse Resp B/P (MAP) Pulse Ox O2 Delivery O2 Flow Rate FiO2 06/23/19 08:38 87 29 30 06/23/19 08:00 99.2 91 29 92/54 (67) 99 06/23/19 07:02 86 29 30 06/23/19 07:00 100.0 94 28 93/52 (66) 99 06/23/19 06:00 99 28 96/53 (67) 98 06/23/19 05:59 100.3 06/23/19 05:30 100.6 100 30 104/63 (77) 100 06/23/19 05:00 102 28 103/64 (77) 100 06/23/19 05:00 103 29 30 06/23/19 04:00 30 06/23/19 04:00 Mechanical Ventilator 06/23/19 04:00 102 06/23/19 04:00 99.4 105 29 107/56 (73) 100 06/23/19 03:01 106 31 30 06/23/19 03:00 106 30 116/61 (79) 100 06/23/19 02:00 103 34 110/70 (83) 100 06/23/19 01:00 96 31 93/59 (70) 100 06/23/19 00:44 97 31 30 06/23/19 00:00 30 06/23/19 00:00 Mechanical Ventilator 2/10/20 00:00 98.9 103 33 98/55 (69) 100 06/23/19 00:00 105 06/22/19 23:00 108 33 105/53 (70) 98 06/22/19 22:50 110 34 30 06/22/19 22:00 109 31 110/52 (71) 99 06/22/19 21:22 107 33 30 06/22/19 21:00 100.6 106 33 92/48 (63) 99 06/22/19 20:30 103 28 97/57 (70) 100 06/22/19 20:00 104 28 100/58 (72) 100 06/22/19 20:00 103 06/22/19 20:00 Mechanical Ventilator 06/22/19 20:00 30 06/22/19 19:08 107 30 30 06/22/19 19:00 109 31 103/62 (76) 100 06/22/19 18:30 99.5 116 32 112/61 (78) 06/22/19 18:00 101.6 120 29 114/67 (83) 100 06/22/19 17:30 119 29 110/55 (73) 100 06/22/19 17:16 123 32 30 06/22/19 17:00 123 30 120/71 (87) 100 06/22/19 16:30 127 31 109/92 (98) 100 06/22/19 16:00 30 06/22/19 16:00 116 06/22/19 16:00 Mechanical Ventilator 06/22/19 16:00 99.8 119 30 107/73 (84) 100 06/22/19 15:30 115 29 118/74 (89) 98 06/22/19 15:08 119 30 30 06/22/19 15:00 117 28 109/75 (86) 97 06/22/19 14:30 118 29 104/55 (71) 06/22/19 14:00 107 28 103/64 (77) 100 06/22/19 13:30 111 28 100/55 (70) 99 06/22/19 13:04 110 30 30 06/22/19 13:00 111 28 103/57 (72) 100 06/22/19 12:30 107 28 93/74 (80) 98 06/22/19 12:00 99.4 105 27 104/59 (74) 99 06/22/19 12:00 Mechanical Ventilator 06/22/19 12:00 110 06/22/19 11:30 105 28 128/94 (105) 98 06/22/19 11:14 30 06/22/19 11:00 30 06/22/19 11:00 102 26 99/59 (72) 99 06/22/19 10:48 102 26 40 06/22/19 10:30 103 26 95/58 (70) 100 Status: obtunded Condition: critical Lungs: clear Heart: HR/BP stable Abdomen: non-tender, active bowel sounds Extremities: no C/C/E Decubiti: stage Micro: Microbiology Date/Time Source Procedure Growth Status 06/21/19 18:10 Blood Blood Culture - Preliminary Gram Negative Bacillus 1 Resulted 06/21/19 18:00 Blood Blood Culture - Preliminary NO GROWTH AFTER 24 HOURS Resulted 06/21/19 18:00 Urine,Clean Catch Urine Culture - Preliminary Gram Negative Bacillus 1 Resulted Accucheck: 139 Critical Care - Subjective ROS Limited/Unobtainable: Yes Condition: critical EKG Rhythm: Sinus Rhythm FI02: 30 Vent Support Breath Rate: 12 Vent Support Mode: AC Vent Tidal Volume: 600 Sputum Amount: Small PEEP: 5.0 PIP: 18 Tube Feeding Amount: 40 I&O: Intake and Output 06/22/19 06/23/19 19:00 07:00 Intake Total 1739.5 ml 2300.5 ml Output Total 1800 ml 1305 ml Balance -60.5 ml 995.5 ml Intake Free Water 120 ml IV Total 1599.5 ml 1730.5 ml Tube Feeding 90 ml 450 ml Other 50 ml Output Urine Total 1800 ml 1305 ml CXR: bilateral infiltrate Labs: Laboratory Tests Test 06/22/19 10:48 06/22/19 18:45 06/23/19 04:00 06/23/19 09:15 Arterial Blood pH 7.218 (7.350-7.450) 7.326 (7.350-7.450) Arterial Blood Partial Pressure CO2 20.5 mmHg (35.0-45.0) *L 22.0 mmHg (35.0-45.0) *L Arterial Blood Partial Pressure O2 145.0 mmHg (75.0-100.0) H 110.8 mmHg (75.0-100.0) H Arterial Blood HCO3 8.2 mmol/L (22.0-26.0) *L 11.2 mmol/L (22.0-26.0) *L Arterial Blood Oxygen Saturation 99.1 % (95-100) 98.4 % (95-100) Arterial Blood Base Excess -17.9 (-2-2) *L -13.6 (-2-2) *L Donald Test Positive Positive Iron Level 6 ug/dL (50-175) L Total Iron Binding Capacity 148 ug/dL (250-450) L Percent Iron Saturation 4 % (15-50) L Unsaturated Iron Binding 142 ug/dL (112-346) Ferritin 92 NG/ML (8-388) White Blood Count 9.4 K/UL (4.8-10.8) Red Blood Count 2.66 M/UL (4.70-6.10) L Hemoglobin 6.9 G/DL (14.2-18.0) *L Hematocrit 21.5 % (42.0-52.0) L Mean Corpuscular Volume 81 FL (80-99) Mean Corpuscular Hemoglobin 26.1 PG (27.0-31.0) L Mean Corpuscular Hemoglobin Concent 32.4 G/DL (32.0-36.0) Red Cell Distribution Width 16.0 % (11.6-14.8) H Platelet Count 385 K/UL (150-450) Mean Platelet Volume 6.1 FL (6.5-10.1) L Neutrophils (%) (Auto) % (45.0-75.0) Lymphocytes (%) (Auto) % (20.0-45.0) Monocytes (%) (Auto) % (1.0-10.0) Eosinophils (%) (Auto) % (0.0-3.0) Basophils (%) (Auto) % (0.0-2.0) Differential Total Cells Counted 100 Neutrophils % (Manual) 77 % (45-75) H Lymphocytes % (Manual) 10 % (20-45) L Monocytes % (Manual) 13 % (1-10) H Eosinophils % (Manual) 0 % (0-3) Basophils % (Manual) 0 % (0-2) Band Neutrophils 0 % (0-8) Platelet Estimate Adequate Platelet Morphology Normal Hypochromasia 1+ Anisocytosis 1+ Microcytosis 1+ Sodium Level 150 MMOL/L (136-145) H Potassium Level 2.5 MMOL/L (3.5-5.1) *L Chloride Level 120 MMOL/L (98-107) H Carbon Dioxide Level 11 MMOL/L (21-32) L Anion Gap 19 mmol/L (5-15) H Blood Urea Nitrogen 16 mg/dL (7-18) Creatinine 0.7 MG/DL (0.55-1.30) Estimat Glomerular Filtration Rate > 60 mL/min (>60) Glucose Level 142 MG/DL (74-106) H Calcium Level 9.6 MG/DL (8.5-10.1) Suzette Wallace MD Jun 23, 2019 10:21
--- NOTE | 2019-06-23 12:00 | NUR ---
NURSE NOTES: Patient mentation remains the same. Sinus rhythm on the surveillance monitor with rate of 85 beats per minute. Trach to ventilator with setting of AC 12, tidal volume 600, FiO2 40%, and PEEP 5. Patient tolerating with SpO2 100% and RR 15. Gastrostomy tube patent and running glucerna 1.2 at 40mL/hr at this time. NO residual noted. Waddell patent and draining straw yellow urine at this time. Wound care nurse assessed the patient. All wound dressings changed at this time. Rectal tube inserted and is leaking at this time. Right AC 24 gauge peripheral IV and right subclavian TLC remain patent, asymptomatic. Right subclavian running Normal saline with HCO3 at 175mL/hr. Patient has order for blood transfusion 2 PRBC. Consent obtained from patient at this time. Will follow up and administer transfusion. Bed in low position with bed alarm on and call light in reach. Oral care, bed bath, and repositioning done at this time. Will continue to monitor.
--- NOTE | 2019-06-23 12:06 | Consultation ---
History of Present Illness General Date patient seen: Jun 23, 2019 Chief Complaint: Dyspnea/Respdistress Present Illness HPI 48 y/o M with hx of HTN, asthma, COPD, persistent vegetative state, CVA, Dm2, chronic respiratory failure s/p trach/vent dependent, Dysphagia s/p [facility] [place] resident presented to ED on with respiratory distress Allergies: Coded Allergies: NO KNOWN DRUG ALLERGIES (Unverified Allergy, Unknown, 06/28/15) Medication History Scheduled Bacitracin Zinc* (Bacitracin Zinc*), 1 APPLIC TOPIC DAILY, (Reported) Cranberry Extract (Cranberry Juice Powder), 425 MG GT DAILY, (Reported) Ergocalciferol (Vitamin D2)* (Vitamin D*), 50,000 UNIT ORAL ONCE A WEEK, ( Reported) Esomeprazole Magnesium (Nexium), 40 MG GT BID, (Reported) Heparin Sod (Porcine) (Heparin Sodium*), 5,000 UNITS SUBQ EVERY 12 HOURS, ( Reported) Insulin Glargine (Lantus), 24 UNITS SUBQ BEDTIME, (Reported) Ipratropium/Albuterol Sulfate (DuoNeb 0.5-3(2.5)mg/3ml), 3 ML HHN Q4HR, ( Reported) Levetiracetam (Keppra), 5 ML GT TWICE A DAY, (Reported) Magnesium Hydroxide* (Milk Of Magnesia*), 30 ML GT DAILY, (Reported) Magnesium Oxide (Magnesium Oxide), 400 MG GT DAILY, (Reported) Metformin Hcl* (Metformin Hcl*), 1,000 MG GT BID, (Reported) Multivit-Min/Iron Fum/Folic AC (Dtcqc-Lpwchmw-Ltzotmgc Tablet), 1 EACH GT DAILY, (Reported) Zinc Oxide (Skin Protectant), 113 GM TP BID, (Reported) Scheduled PRN Acetaminophen 160MG/5ML* (Acetaminophen*), 20.3 ML GT Q4HR PRN for PAIN 1-3 OR TEMP > 100.4, (Reported) Miscellaneous Medications Insulin Lispro (Humalog), 0 SUBQ, (Reported) Lactulose (Lactulose*), 30 ML GT, (Reported) Patient History Healthcare decision maker N Resuscitation status Full Code Advanced Directive on File No Patient History Narrative Pmhx: as above Shx: reviewed Fhx: non contributory Physical Exam Physical Exam Narrative General Appearance: alert, severe distress, Chronically Ill Head: atraumatic ENT: dry mucus membranes, other Neck: normal inspection, supple, no bony tend, limited range of motion, tracheotomy Respiratory: normal inspection, no respiratory distress, no retraction, no wheezing Cardiovascular: regular rate, rhythm, no edema Gastrointestinal: normal bowel sounds, soft, no guarding, no hernia Genitourinary: no CVA tenderness Musculoskeletal: normal range of motion, other - Bilateral upper and lower extremity motor weakness. Neurologic: alert, responsive, speech normal, normal inspection Skin: no rash Last 24 Hour Vital Signs Date Time Temp Pulse Resp B/P (MAP) Pulse Ox O2 Delivery O2 Flow Rate FiO2 06/23/19 11:20 92 36 30 06/23/19 08:38 87 29 30 06/23/19 08:00 99.2 91 29 92/54 (67) 99 06/23/19 07:02 86 29 30 06/23/19 07:00 100.0 94 28 93/52 (66) 99 06/23/19 06:00 99 28 96/53 (67) 98 06/23/19 05:59 100.3 06/23/19 05:30 100.6 100 30 104/63 (77) 100 06/23/19 05:00 102 28 103/64 (77) 100 06/23/19 05:00 103 29 30 06/23/19 04:00 30 06/23/19 04:00 Mechanical Ventilator 06/23/19 04:00 102 06/23/19 04:00 99.4 105 29 107/56 (73) 100 06/23/19 03:01 106 31 30 06/23/19 03:00 106 30 116/61 (79) 100 06/23/19 02:00 103 34 110/70 (83) 100 06/23/19 01:00 96 31 93/59 (70) 100 06/23/19 00:44 97 31 30 06/23/19 00:00 30 06/23/19 00:00 Mechanical Ventilator 06/23/19 00:00 98.9 103 33 98/55 (69) 100 06/23/19 00:00 105 06/22/19 23:00 108 33 105/53 (70) 98 06/22/19 22:50 110 34 30 06/22/19 22:00 109 31 110/52 (71) 99 06/22/19 21:22 107 33 30 06/22/19 21:00 100.6 106 33 92/48 (63) 99 06/22/19 20:30 103 28 97/57 (70) 100 06/22/19 20:00 104 28 100/58 (72) 100 06/22/19 20:00 103 06/22/19 20:00 Mechanical Ventilator 06/22/19 20:00 30 06/22/19 19:08 107 30 30 06/22/19 19:00 109 31 103/62 (76) 100 06/22/19 18:30 99.5 116 32 112/61 (78) 06/22/19 18:00 101.6 120 29 114/67 (83) 100 06/22/19 17:30 119 29 110/55 (73) 100 06/22/19 17:16 123 32 30 06/22/19 17:00 123 30 120/71 (87) 100 06/22/19 16:30 127 31 109/92 (98) 100 06/22/19 16:00 30 06/22/19 16:00 116 06/22/19 16:00 Mechanical Ventilator 06/22/19 16:00 99.8 119 30 107/73 (84) 100 06/22/19 15:30 115 29 118/74 (89) 98 06/22/19 15:08 119 30 30 06/22/19 15:00 117 28 109/75 (86) 97 06/22/19 14:30 118 29 104/55 (71) 06/22/19 14:00 107 28 103/64 (77) 100 06/22/19 13:30 111 28 100/55 (70) 99 06/22/19 13:04 110 30 30 06/22/19 13:00 111 28 103/57 (72) 100 06/22/19 12:30 107 28 93/74 (80) 98 06/22/19 12:00 99.4 105 27 104/59 (74) 99 06/22/19 12:00 Mechanical Ventilator 06/22/19 12:00 110 Intake and Output 06/22/19 06/23/19 19:00 07:00 Intake Total 1739.5 ml 2300.5 ml Output Total 1800 ml 1305 ml Balance -60.5 ml 995.5 ml Intake Free Water 120 ml IV Total 1599.5 ml 1730.5 ml Tube Feeding 90 ml 450 ml Other 50 ml Output Urine Total 1800 ml 1305 ml Laboratory Tests Test 06/22/19 18:45 06/23/19 04:00 06/23/19 09:15 Iron Level 6 ug/dL (50-175) L Total Iron Binding Capacity 148 ug/dL (250-450) L Percent Iron Saturation 4 % (15-50) L Unsaturated Iron Binding 142 ug/dL (112-346) Ferritin 92 NG/ML (8-388) White Blood Count 9.4 K/UL (4.8-10.8) Red Blood Count 2.66 M/UL (4.70-6.10) L Hemoglobin 6.9 G/DL (14.2-18.0) *L Hematocrit 21.5 % (42.0-52.0) L Mean Corpuscular Volume 81 FL (80-99) Mean Corpuscular Hemoglobin 26.1 PG (27.0-31.0) L Mean Corpuscular Hemoglobin Concent 32.4 G/DL (32.0-36.0) Red Cell Distribution Width 16.0 % (11.6-14.8) H Platelet Count 385 K/UL (150-450) Mean Platelet Volume 6.1 FL (6.5-10.1) L Neutrophils (%) (Auto) % (45.0-75.0) Lymphocytes (%) (Auto) % (20.0-45.0) Monocytes (%) (Auto) % (1.0-10.0) Eosinophils (%) (Auto) % (0.0-3.0) Basophils (%) (Auto) % (0.0-2.0) Differential Total Cells Counted 100 Neutrophils % (Manual) 77 % (45-75) H Lymphocytes % (Manual) 10 % (20-45) L Monocytes % (Manual) 13 % (1-10) H Eosinophils % (Manual) 0 % (0-3) Basophils % (Manual) 0 % (0-2) Band Neutrophils 0 % (0-8) Platelet Estimate Adequate Platelet Morphology Normal Hypochromasia 1+ Anisocytosis 1+ Microcytosis 1+ Sodium Level 150 MMOL/L (136-145) H Potassium Level 2.5 MMOL/L (3.5-5.1) *L Chloride Level 120 MMOL/L (98-107) H Carbon Dioxide Level 11 MMOL/L (21-32) L Anion Gap 19 mmol/L (5-15) H Blood Urea Nitrogen 16 mg/dL (7-18) Creatinine 0.7 MG/DL (0.55-1.30) Estimat Glomerular Filtration Rate > 60 mL/min (>60) Glucose Level 142 MG/DL (74-106) H Calcium Level 9.6 MG/DL (8.5-10.1) Arterial Blood pH 7.326 (7.350-7.450) Arterial Blood Partial Pressure CO2 22.0 mmHg (35.0-45.0) *L Arterial Blood Partial Pressure O2 110.8 mmHg (75.0-100.0) H Arterial Blood HCO3 11.2 mmol/L (22.0-26.0) *L Arterial Blood Oxygen Saturation 98.4 % (95-100) Arterial Blood Base Excess -13.6 (-2-2) *L Donald Test Positive Height (Feet): 5 Height (Inches): 7.00 Weight (Pounds): 163 Medications Current Medications Medications (Trade) Dose Ordered Sig/Tony Route PRN Reason Start Time Stop Time Status Last Admin Dose Admin Acetaminophen (Tylenol) 650 mg Q4H PRN GT Mild Pain/Temp > 100.5 06/22/19 01:00 07/22/19 00:59 06/23/19 05:29 Albuterol Sulfate (Proventil) 2.5 mg Q6HRT PRN HHN Bronchospasm 06/21/19 22:00 06/26/19 21:59 Cefepime HCl 1 gm/ Dextrose 55 ml @ 110 mls/hr EVERY 12 HOURS IVPB 06/23/19 09:00 06/30/19 08:59 06/23/19 09:03 Chlorhexidine Gluconate (Kay-Hex 2%) 1 applic DAILY@2000 TOPIC 06/22/19 20:00 07/22/19 19:59 06/22/19 20:51 Dextrose (Dextrose 50%) 25 ml Q30M PRN IV Hypoglycemia 06/21/19 22:00 07/21/19 21:59 Dextrose (Dextrose 50%) 50 ml Q30M PRN IV Hypoglycemia 06/21/19 22:00 07/21/19 21:59 Dextrose/ Electrolytes 1,000 ml @ 100 mls/hr Q10H IV 06/23/19 12:00 07/23/19 11:59 Heparin Sodium (Porcine) (Heparin 5000 units/ml) 5,000 units EVERY 12 HOURS SUBQ 06/22/19 09:00 07/22/19 08:59 06/22/19 20:52 Insulin Aspart (NovoLOG) Q6HR SUBQ 06/22/19 00:00 07/22/19 00:00 Levetiracetam (Keppra) 500 mg Q12HR GT 06/22/19 09:00 07/22/19 08:59 06/23/19 09:03 Metronidazole 100 ml @ 100 mls/hr Q8HR IVPB 06/21/19 22:00 06/28/19 21:59 06/23/19 05:29 Norepinephrine Bitartrate 4 mg/ Dextrose 250 ml @ 0 mls/hr Q24H PRN IV For hypotension 06/21/19 22:00 07/21/19 21:59 Pantoprazole (Protonix) 40 mg DAILY@0630 IVP 06/22/19 06:30 07/22/19 06:29 06/23/19 05:30 Polyethylene Glycol (Miralax) 17 gm PRN PRN GT Constipation 06/21/19 22:00 07/21/19 21:59 Potassium Chloride (K-Dur) 40 meq BID GT 06/23/19 09:00 07/23/19 08:59 06/23/19 09:03 Assessment/Plan Assessment/Plan: Abx: Zosyn x1 06/21 Ertapenem x1 06/22 Cefepime 06/22- Flagyl 06/21- Assessment: Severe Sepsis UTI Gram negative bacteremia Multifocal PNA -u/a wbc tnct, nit neg, leuk +3; ucx >100k GNR -06/21 Bcx 06/17 GNR -06/21 CXR:.New bilateral patchy airspace opacities in the left midlung an as well as the right upper lung concerning for multifocal pneumonia. Similar retrocardiac atelectasis or consolidation. Severe anion gap metabolic acidosis - ?etiology- normal lactic acid, normal Cr- BG levels between 119-170s- r/o DKA vs other HTN asthma COPD persistent vegetative state CVA Dm2 chronic respiratory failure s/p trach/vent dependent Dysphagia s/p [facility] resident Plan: -Continue empiric Cefepime #2 and add empiric IV Linezolid -IV amikacin x1 -Dc flagyl #3 -empiric Tamiflu pending test -f/u cx -Monitor CBC/CMP, temperatures -Bcx x2, influenza sc, sp cx -GT/trach/ICU care -aspiration precautions -neprho eval for acidosis Thank you for this consultation. Will continue to follow along with you. Discussed with Laura Merino M.D. Jun 23, 2019 12:06
--- NOTE | 2019-06-23 12:06 | Diagnostic Imaging Report ---
Indication: Abdominal pain Technique: Grayscale and duplex Doppler imaging of the abdomen performed. Comparison: None Findings: The liver is enlarged with increased echogenicity. Liver measures 20 cm. Gallbladder is notable for mild wall thickening. No definite stones identified. There is no biliary ductal dilatation identified. Main portal vein is patent by Doppler examination. Spleen is unremarkable. No hydronephrosis demonstrated. There may be a nonobstructive stone in the left kidney. Waddell catheter noted. Pancreas is obscured due to bowel gas. Gastrostomy bandages also limited evaluation of epigastric region. There is a cystic-appearing focus within the right kidney measuring 1.9 cm. Impression: Hepatomegaly with fatty infiltration. Mild gallbladder wall thickening, nonspecific. Right renal cyst Waddell catheter
[2019-06-23] MEDS ORDERED: Amikacin Rx to dose MISC PRN (12:15)
--- NOTE | 2019-06-23 13:00 | History and Physical Report ---
DATE OF ADMISSION: 06/21/2019 NOTE: POOR AUDIO This is one of several admissions to [facility] of this 48-year-old patient because of sepsis and hypoxia. HISTORY OF PRESENT ILLNESS: The patient is a resident of an extended care facility subacute unit where he has been in stable condition for more than a year. He is known to have several chronic medical syndrome, but has been stable on his current medication. Two days prior to admission, the patient developed fever and tachycardia, and was placed on Zosyn 3.375 g IV piggyback q.6 h.; however, the patient's condition deteriorated. hypertension, hypoxia, and tachycardia, was transferred to [place] [facility] where his condition stabilized. He was found to have pneumonia and was admitted. PAST MEDICAL HISTORY: Less than two years ago, the patient had been hemorrhage that required a craniotomy on the same time the patient developed acute hypoxic respiratory failure. He had to be intubated and placed on mechanical ventilation. He was unable to be weaned. Underwent tracheostomy and gastrostomy in the subacute unit. hyperlipidemia hyperlipidemia, treated by atorvastatin. FAMILY HISTORY: Noncontributory. SOCIAL HISTORY: He is . He was born in [place] and been in [place] for many years. 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 HABITS: The patient did not smoke, drink, or use illicit drugs. REVIEW OF SYSTEMS: The patient is unable to give any information regarding his state of health. PHYSICAL EXAMINATION: VITAL SIGNS: Blood pressure is 105/53, his pulse is 108, respirations are 33, and temperature 98.9. HEENT: Eyes were normal. Pupils were round, equal, and reactive to light. Sclerae were white. Conjunctivae were pink. Extraocular movements could not be assessed. Temporal arteries were palpable bilaterally. There was no bilateral temporal wasting. Visual peres to confrontation. Neglect sign could not be assessed. ENT, mucous membranes were not dehydrated. Auditory canals were clear and tympanic membranes could not be visualized. Nasal cavity was not congested. Nasal septum was intact. Soft palate. Pharynx and uvula could not be visualized. Tongue was moist, midline, and normally papillated. NECK: Supple. There was no goiter. No mass. No lymphadenopathy. There was no JVD. No bruits. Carotid upstroke was 2+. Tracheostomy site was clean. LUNGS: Clear without rhonchi, rales, or wheezing . There are bilateral rhonchi. . HEART: PMI was in fifth left intercostal space in midclavicular line. Normal S1 and normal S2. There was no murmur. No arrhythmia. No S3. No S4. No pericardial rub. ABDOMEN: Soft, obese, and nontender without organomegaly. There were masses palpable. Normal bowel sounds without bruits. There was no guarding. No rebound tenderness. No ascites. No hernia. No CVA tenderness. Liver span was 8 cm, mostly nontender. EXTREMITIES: No cyanosis, no clubbing, and no edema. Extremities are warm. NEUROLOGICAL: Reflexes in biceps, triceps, and brachioradialis were present. Patellar retinaculum were present. Plantars were in extension on the right and flexion on the left. Cranial nerves II through XII were symmetric and equal. Cerebellar function, there was no tremor. No nystagmus. No extrapyramidal rigidity. Sensory exam to pinprick, cotton touch, position, and motor strength could not be assessed because of the patient's clinical status. LABORATORY AND DIAGNOSTIC DATA: His hemoglobin is 9.9, hematocrit 28.9 with MCV of 81, WBC of 8.5 and platelets of 332,000. His BUN and creatinine are 18 and 0.9 respectively. His sodium is 143, potassium 3.6, chloride 113, CO2 was 9, and his glucose is 119. His hemoglobin A1c was 6.2. iron saturation was . SGOT, SGPT, and alkaline phosphatase were normal. Albumin was 1.7. Total protein is 6.8. Triglycerides are 246 and LDL was 47. IMPRESSION: The patient is on Levophed drip at 6 mcg . His chest x-ray showed bilateral patchy infiltrate, more on the right than in the left. atelectasis. PLAN: The patient will be started on cefepime 1 g IV piggyback q.12 h., vancomycin 1 g IV piggyback q.12 h., metronidazole 500 mg IV piggyback q.8 h. medication was switched to ertapenem 1 g IV piggyback every 24 hours; however, this was intent to go back to cefepime 1 g q.12 h. Repeat laboratory tests will be done in a.m. Liset Wallace M.D. DR: KHUSHI JOB#: [id number] CC:
[2019-06-23] MEDS: Oseltamivir 75mg cap ORAL SCH ×2 (13:03→21:32)
[2019-06-23] MEDS: D5W w/KCl 20mEq 1,000 ML IV SCH ×2 (13:04→22:07)
--- NOTE | 2019-06-23 13:57 | NUR ---
NURSE NOTES:WOUND CARE NOTES:Pt presented on admission with multiple pressure injuries and Moisture Associated Skin damage Buttocks and Bilat groin. Both earlobes including medial canals noted to have scaly red plaques and and small lesions. Full thickness pressure injury posterior neck under collar of trach. Base of wound has 25% slough,75% beefy red .Small amt serosanguineous exudate noted. Borders are macerated. Surrounding skin is clean and dry. Moisture Associated Skin Damage noted to bilat grin areas,Buttocks and bilat ischium. Skin is grossly erythematous and denuded with scattered satellite lesions. Full thickness sacral pressure injury. Base of wound is 25% necrotic ,30% slough ,otherwise beefy red with small amt serous exudate.Borders are macerated.(L)(L)8.5cm x (W)10cm. Periwound MASD. Full Thickness pressure injury R trochanter. Base of wound 80% beefy red ,20% slough. Small amt serous exudate. Borders are macerated(L)3cm x (W)3.2cm. No odor noted.Periwound MASD. Full Thickness pressure injury R ischium. Base of wound is 25% necrotic, beefy red with scattered slough. Borders are macerated. Small amt serous exudate noted. No odor noted.(L)5.3cm x (W)3.9cm. Periwound MASD. Full thickness pressure injury L Ischium. Base of wound is beefy red and moist. Borders are macerated. Small amt serous exudate noted.(L)4cm x (W)3.2cm x (D)0.2cm. Both heels are pink and easily blanchable. Bilat foot drop noted. Tx.Plan: Cleanse wounds on Buttocks with Saline. Apply Therahoney to wounds.Apply Triad Paste periwound to cover erythematous skin. Cover with Optifoam drsgs Daily and prn. Apply Phytoplex Lotion to R and L ears daily and prn. Apply Cavilon Skin Barrier to Both heels. Cover each heel with Optifoam drsg. Change every 7 days and prn. APM/MAICOL Mattress overlay. Reposition at least every 2hours or as tolerated. Off-load heels with pillow. Place pillow between knees. Addendum: 06/23/19 at 1511 by Crow Jiang LVN ADDENDUM TO ABOVE WOUND NOTES:met with pt's spouse and discussed wounds. Spouse stated she is aware pt has had wounds for a while at [facility]. Spouse stated she is very unhappy with care and does not want pt to return to [place]. Msg relayed to Primary nurse.
[2019-06-23] MEDS ORDERED: Amikacin 1,000 MG in NS 110 ML IV SCH (14:00)
--- NOTE | 2019-06-23 14:00 | NUR ---
NURSE NOTES: Vital signs stable. Will continue to monitor temperature. Patient repositioned at this time.
--- NOTE | 2019-06-23 14:11 | Consultation ---
Consult Note Consult Note Asked to eval for fluid and electrolyte management in ICu Vent- Trach PEG Waddell non verbal examnied data reviewed . Assessment/Plan Metabolic Acidosis HypoKalemia HyperNatremia Severe Anemia Other Conditions: (1) Nosocomial pneumonia (2) Sepsis (3) Ventilator dependent (4) Chronic vegetative state (5) COPD (chronic obstructive pulmonary disease) (6) Feeding by G-tube (7) Diabetes mellitus, type II (8) Cerebral vascular disease (9) Seizure disorder (10) Chronic complete quadriplegia K via GT Bicitra GT K via IV D5W Protonix IV Anemia jimenez Transfusion per orders Ricky Green MD Jun 23, 2019 14:11
--- NOTE | 2019-06-23 14:27 | NUR ---
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 99.1 HR 123 RR 23 B/P 106/54 AC 12 TV 600 FIO2 40 PEEP 5 PT 12.9 INR 1.2 PTT 39 CO2 9 PH 7.20 PCO2 19.4 PO2 131.7 HCO3 75 O2 SAT 98.7 CXR=New bilateral patchy airspace opacities in the left midlung an as well as the right upper lung concerning multifocal PNA. IS: IV BOLUS NS X 1 LITER ADMITTED TO ICU@ 2029 ICU STATUS DCP RETURN TO [place]
[2019-06-23] MEDS: Sodium Citrate 30ml ORAL SCH ×3 (14:58→23:30)
--- NOTE | 2019-06-23 15:06 | NUR ---
Social Work This SW met with patient, currently in the ICU (with spouse, Bronwyn Taylor: [phone]) currently at bedside. Spouse speaks mostly Russian, while son, Theo ([phone]) also spoke with this SW in Korean. Spouse expressing she would like for patient to discharge to a new facility; patient is from [facility] and does not feel the care there is appropriate. This SW explained there are limited beds at other facilities and will need to return to this facility if a new one cannot be located. This SW suggested contacting the facility and/or the Ombudsman regarding their concerns as well. Spouse does not want to make a formal complaint to the Ombudsman at this time about the facility. Patient does not have an Advance Directive, while spouse/family are requesting to continue with full code, full treatment at this time. SW to follow for support, as needed.
--- NOTE | 2019-06-23 16:00 | NUR ---
NURSE NOTES: First PRBC finished at this time. NO transfusion reaction noted. No spike in temp after first 15 min. Post transfusion temp of 100.7. Will hold second PRBC until temp within normal limits. Tylenol 650mg PO given and cooling measures applied. Will continue to monitor. Patient mentation remains the same. Sinus rhythm on the cardiac technologist with rate of 85 beats per minute. Trach to ventilator with setting of AC 12, tidal volume 600, FiO2 40%, and PEEP 5. Patient tolerating with SpO2 100% and RR 15. Gastrostomy tube patent and running glucerna 1.2 at 40mL/hr at this time. NO residual noted. Waddell patent and draining straw yellow urine at this time. All wounds covered with intact dressing. Rectal tube inserted and is leaking at this time. Right AC 24 gauge peripheral IV and right subclavian TLC remain patent, asymptomatic. Right subclavian running D5W with 20mEq KCL at 100mL/hr. Bed in low position with bed alarm on and call light in reach. Oral care, bed bath, and repositioning done at this time. Will continue to monitor.
--- NOTE | 2019-06-23 16:44 | Consultation ---
History of Present Illness General Date patient seen: Jun 23, 2019 Chief Complaint: Dyspnea/Respdistress Present Illness HPI 48 year old male with past medical history of HTN, asthma, COPD, persistent vegetative state, CVA, DM2, chronic respiratory failure s/p trach/vent dependent , Dysphagia s/p GT who is a [facility] resident presented to ED with respiratory distress. Admitted to ICU for care and management. Noted to have abnormal labs and, decubitus ulcer, and ftt on admission. surgery called to evaluate and assist with care. patient seen, chart reviewed, patient examined. Allergies: Coded Allergies: NO KNOWN DRUG ALLERGIES (Unverified Allergy, Unknown, 06/28/15) Medication History Scheduled Bacitracin Zinc* (Bacitracin Zinc*), 1 APPLIC TOPIC DAILY, (Reported) Cranberry Extract (Cranberry Juice Powder), 425 MG GT DAILY, (Reported) Ergocalciferol (Vitamin D2)* (Vitamin D*), 50,000 UNIT ORAL ONCE A WEEK, ( Reported) Esomeprazole Magnesium (Nexium), 40 MG GT BID, (Reported) Heparin Sod (Porcine) (Heparin Sodium*), 5,000 UNITS SUBQ EVERY 12 HOURS, ( Reported) Insulin Glargine (Lantus), 24 UNITS SUBQ BEDTIME, (Reported) Ipratropium/Albuterol Sulfate (DuoNeb 0.5-3(2.5)mg/3ml), 3 ML HHN Q4HR, ( Reported) Levetiracetam (Keppra), 5 ML GT TWICE A DAY, (Reported) Magnesium Hydroxide* (Milk Of Magnesia*), 30 ML GT DAILY, (Reported) Magnesium Oxide (Magnesium Oxide), 400 MG GT DAILY, (Reported) Metformin Hcl* (Metformin Hcl*), 1,000 MG GT BID, (Reported) Multivit-Min/Iron Fum/Folic AC (Qafyz-Epbhazk-Ftxebqqh Tablet), 1 EACH GT DAILY, (Reported) Zinc Oxide (Skin Protectant), 113 GM TP BID, (Reported) Scheduled PRN Acetaminophen 160MG/5ML* (Acetaminophen*), 20.3 ML GT Q4HR PRN for PAIN 1-3 OR TEMP > 100.4, (Reported) Miscellaneous Medications Insulin Lispro (Humalog), 0 SUBQ, (Reported) Lactulose (Lactulose*), 30 ML GT, (Reported) Patient History Limited by: medical condition History Provided By: Medical Record, PMD Healthcare decision maker N Resuscitation status Full Code Advanced Directive on File No Past Medical/Surgical History Past Medical/Surgical History: (1) Iron deficiency anemia (2) Ileus (3) Esophagitis (4) Gastric ulcer (5) Acute blood loss anemia (6) Hematuria (7) ATN (acute tubular necrosis) (8) Wound of sacral region (9) Chronic complete quadriplegia (10) COPD (chronic obstructive pulmonary disease) (11) Cholecystitis (12) Diabetes mellitus, type II (13) Seizure disorder (14) Cerebral vascular disease (15) Intractable diarrhea (16) Nosocomial pneumonia (17) Acute and chronic respiratory failure (18) Chronic vegetative state (19) Ventilator dependent (20) Status post tracheostomy (21) Sepsis (22) Metabolic acidosis (23) Feeding by G-tube Review of Systems ROS Narrative patient unable to provide meaningful history Physical Exam General Appearance: no apparent distress Lines, tubes and drains: peripheral HEENT: mucous membranes moist Neck: trach Respiratory/Chest: no respiratory distress, no accessory muscle use, decreased breath sounds, on vent Cardiovascular/Chest: normal rate Abdomen: soft, no organomegaly, no mass, feeding tube Extremities: normal inspection Skin Exam: warm/dry Neurologic: alert Last 24 Hour Vital Signs Date Time Temp Pulse Resp B/P (MAP) Pulse Ox O2 Delivery O2 Flow Rate FiO2 06/23/19 14:40 90 31 30 06/23/19 13:20 94 32 30 06/23/19 12:00 98.6 91 31 111/66 (81) 100 06/23/19 12:00 Mechanical Ventilator 06/23/19 12:00 30 06/23/19 11:20 92 36 30 06/23/19 11:00 90 31 97/50 (66) 100 06/23/19 10:00 88 30 101/62 (75) 06/23/19 09:00 87 27 91/52 (65) 100 06/23/19 08:38 87 29 30 06/23/19 08:00 30 06/23/19 08:00 99.2 91 29 92/54 (67) 99 06/23/19 08:00 Mechanical Ventilator 06/23/19 07:02 86 29 30 06/23/19 07:00 100.0 94 28 93/52 (66) 99 06/23/19 06:00 99 28 96/53 (67) 98 06/23/19 05:59 100.3 06/23/19 05:30 100.6 100 30 104/63 (77) 100 06/23/19 05:00 102 28 103/64 (77) 100 06/23/19 05:00 103 29 30 06/23/19 04:00 30 06/23/19 04:00 Mechanical Ventilator 06/23/19 04:00 102 06/23/19 04:00 99.4 105 29 107/56 (73) 100 06/23/19 03:01 106 31 30 06/23/19 03:00 106 30 116/61 (79) 100 06/23/19 02:00 103 34 110/70 (83) 100 06/23/19 01:00 96 31 93/59 (70) 100 06/23/19 00:44 97 31 30 06/23/19 00:00 30 06/23/19 00:00 Mechanical Ventilator 06/23/19 00:00 98.9 103 33 98/55 (69) 100 06/23/19 00:00 105 06/22/19 23:00 108 33 105/53 (70) 98 06/22/19 22:50 110 34 30 06/22/19 22:00 109 31 110/52 (71) 99 06/22/19 21:22 107 33 30 06/22/19 21:00 100.6 106 33 92/48 (63) 99 06/22/19 20:30 103 28 97/57 (70) 100 06/22/19 20:00 104 28 100/58 (72) 100 06/22/19 20:00 103 06/22/19 20:00 Mechanical Ventilator 06/22/19 20:00 30 06/22/19 19:08 107 30 30 06/22/19 19:00 109 31 103/62 (76) 100 06/22/19 18:30 99.5 116 32 112/61 (78) 06/22/19 18:00 101.6 120 29 114/67 (83) 100 06/22/19 17:30 119 29 110/55 (73) 100 06/22/19 17:16 123 32 30 06/22/19 17:00 123 30 120/71 (87) 100 Intake and Output 06/22/19 06/23/19 19:00 07:00 Intake Total 1739.5 ml 2340.5 ml Output Total 1800 ml 1405 ml Balance -60.5 ml 935.5 ml Intake Free Water 120 ml IV Total 1599.5 ml 1730.5 ml Tube Feeding 90 ml 490 ml Other 50 ml Output Urine Total 1800 ml 1405 ml Laboratory Tests Test 06/22/19 18:45 06/23/19 04:00 06/23/19 09:15 06/23/19 13:18 Iron Level 6 ug/dL (50-175) L Total Iron Binding Capacity 148 ug/dL (250-450) L Percent Iron Saturation 4 % (15-50) L Unsaturated Iron Binding 142 ug/dL (112-346) Ferritin 92 NG/ML (8-388) White Blood Count 9.4 K/UL (4.8-10.8) Red Blood Count 2.66 M/UL (4.70-6.10) L Hemoglobin 6.9 G/DL (14.2-18.0) *L Hematocrit 21.5 % (42.0-52.0) L Mean Corpuscular Volume 81 FL (80-99) Mean Corpuscular Hemoglobin 26.1 PG (27.0-31.0) L Mean Corpuscular Hemoglobin Concent 32.4 G/DL (32.0-36.0) Red Cell Distribution Width 16.0 % (11.6-14.8) H Platelet Count 385 K/UL (150-450) Mean Platelet Volume 6.1 FL (6.5-10.1) L Neutrophils (%) (Auto) % (45.0-75.0) Lymphocytes (%) (Auto) % (20.0-45.0) Monocytes (%) (Auto) % (1.0-10.0) Eosinophils (%) (Auto) % (0.0-3.0) Basophils (%) (Auto) % (0.0-2.0) Differential Total Cells Counted 100 Neutrophils % (Manual) 77 % (45-75) H Lymphocytes % (Manual) 10 % (20-45) L Monocytes % (Manual) 13 % (1-10) H Eosinophils % (Manual) 0 % (0-3) Basophils % (Manual) 0 % (0-2) Band Neutrophils 0 % (0-8) Platelet Estimate Adequate Platelet Morphology Normal Hypochromasia 1+ Anisocytosis 1+ Microcytosis 1+ Sodium Level 150 MMOL/L (136-145) H Potassium Level 2.5 MMOL/L (3.5-5.1) *L Chloride Level 120 MMOL/L (98-107) H Carbon Dioxide Level 11 MMOL/L (21-32) L Anion Gap 19 mmol/L (5-15) H Blood Urea Nitrogen 16 mg/dL (7-18) Creatinine 0.7 MG/DL (0.55-1.30) Estimat Glomerular Filtration Rate > 60 mL/min (>60) Glucose Level 142 MG/DL (74-106) H Calcium Level 9.6 MG/DL (8.5-10.1) Arterial Blood pH 7.326 (7.350-7.450) Arterial Blood Partial Pressure CO2 22.0 mmHg (35.0-45.0) *L Arterial Blood Partial Pressure O2 110.8 mmHg (75.0-100.0) H Arterial Blood HCO3 11.2 mmol/L (22.0-26.0) *L Arterial Blood Oxygen Saturation 98.4 % (95-100) Arterial Blood Base Excess -13.6 (-2-2) *L Donald Test Positive Stool Occult Blood Pending Microbiology Date/Time Source Procedure Growth Status 06/23/19 13:30 Nasopharynx - Final Complete 06/23/19 13:30 Nasopharynx - Final Complete Height (Feet): 5 Height (Inches): 7.00 Weight (Pounds): 163 Medications Current Medications Medications (Trade) Dose Ordered Sig/Tony Route PRN Reason Start Time Stop Time Status Last Admin Dose Admin Acetaminophen (Tylenol) 650 mg Q4H PRN GT Mild Pain/Temp > 100.5 06/22/19 01:00 07/22/19 00:59 06/23/19 16:14 Albuterol Sulfate (Proventil) 2.5 mg Q6HRT PRN HHN Bronchospasm 06/21/19 22:00 06/26/19 21:59 Amikacin Protocol (Amikacin pharmacy to dose) 1 ea DAILY PRN MISC Per rx protocol 06/23/19 12:15 07/23/19 12:14 Amikacin Sulfate 1000 mg/Sodium Chloride 114 ml @ 114 mls/hr Q24H IV 06/23/19 14:00 06/30/19 13:59 06/23/19 14:56 Cefepime HCl 1 gm/ Dextrose 55 ml @ 110 mls/hr EVERY 12 HOURS IVPB 06/23/19 09:00 06/30/19 08:59 06/23/19 09:03 Chlorhexidine Gluconate (Kay-Hex 2%) 1 applic DAILY@2000 TOPIC 06/22/19 20:00 07/22/19 19:59 06/22/19 20:51 Dextrose (Dextrose 50%) 25 ml Q30M PRN IV Hypoglycemia 06/21/19 22:00 07/21/19 21:59 Dextrose (Dextrose 50%) 50 ml Q30M PRN IV Hypoglycemia 06/21/19 22:00 07/21/19 21:59 Dextrose/ Electrolytes 1,000 ml @ 100 mls/hr Q10H IV 06/23/19 12:00 07/23/19 11:59 06/23/19 13:04 Heparin Sodium (Porcine) (Heparin 5000 units/ml) 5,000 units EVERY 12 HOURS SUBQ 06/22/19 09:00 07/22/19 08:59 06/22/19 20:52 Insulin Aspart (NovoLOG) Q6HR SUBQ 06/22/19 00:00 07/22/19 00:00 Levetiracetam (Keppra) 500 mg Q12HR GT 06/22/19 09:00 07/22/19 08:59 06/23/19 09:03 Linezolid 300 ml @ 300 mls/hr Q12HR IVPB 06/23/19 13:00 06/30/19 12:59 06/23/19 13:03 Norepinephrine Bitartrate 4 mg/ Dextrose 250 ml @ 0 mls/hr Q24H PRN IV For hypotension 06/21/19 22:00 07/21/19 21:59 Oseltamivir Phosphate (Tamiflu) 75 mg Q12HR ORAL 06/23/19 13:00 06/28/19 12:59 06/23/19 13:03 Pantoprazole (Protonix) 40 mg Q12HR IVP 06/23/19 21:00 07/22/19 06:29 Polyethylene Glycol (Miralax) 17 gm PRN PRN GT Constipation 06/21/19 22:00 07/21/19 21:59 Potassium Chloride (K-Dur) 40 meq Q8HR GT 06/23/19 14:15 07/23/19 14:14 06/23/19 14:58 Sodium Citrate (Bicitra) 45 ml EVERY 6 HOURS ORAL 06/23/19 14:15 07/23/19 14:14 06/23/19 14:58 Assessment/Plan Problem List: (1) Decubitus skin ulcer Assessment & Plan: Pt presented on admission with multiple pressure injuries and Moisture Associated Skin damage Buttocks and Bilateral groin. Both earlobes including medial canals noted to have scaly red plaques and and small lesions. Full thickness stage 3 pressure injury posterior neck under collar of trach. Base of wound has 25% slough,75% beefy red .Small amt serosanguineous exudate noted. Borders are macerated. Surrounding skin is clean and dry. Moisture Associated Skin Damage noted to bilateral groin areas,Buttocks and bilateral ischium. Skin is grossly erythematous and denuded with scattered satellite lesions. Full thickness stage 3 sacral pressure injury. Base of wound is 25% necrotic ,30 % slough ,otherwise beefy red with small amt serous exudate.Borders are macerated.(L)(L)8.5cm x (W)10cm. Periwound MASD. Full Thickness stage 3 pressure injury R trochanter. Base of wound 80% beefy red ,20% slough. Small amt serous exudate. Borders are macerated(L)3cm x (W) 3.2cm. No odor noted.Periwound MASD. Full Thickness stage 3 pressure injury R ischium. Base of wound is 25% necrotic , beefy red with scattered slough. Borders are macerated. Small amt serous exudate noted. No odor noted.(L)5.3cm x (W)3.9cm. Periwound MASD. Full thickness stage 3 pressure injury L Ischium. Base of wound is beefy red and moist. Borders are macerated. Small amt serous exudate noted.(L)4cm x (W) 3.2cm x (D)0.2cm. Both heels are pink and easily blanchable. Bilat foot drop noted. Tx.Plan: Cleanse wounds on Buttocks, sacrum, ishium, trochanter with Saline. Apply Therahoney to wounds. Apply Triad Paste periwound to cover erythematous skin. Cover with Optifoam drsgs Daily and prn. Apply Phytoplex Lotion to R and L ears daily and prn. Apply Cavilon Skin Barrier to Both heels. Cover each heel with Optifoam drsg. Change every 7 days and prn. APM/MAICOL Mattress overlay. Reposition at least every 2hours or as tolerated. Off-load heels with pillow. Place pillow between knees. ICD Codes: L89.90 - Pressure ulcer of unspecified site, unspecified stage SNOMED: 759786665 (2) Feeding by G-tube Assessment & Plan: DAILY ESTIMATED NEEDS: Needs based on Critical care, wounds 73kg 22-30 kcals/kg 4949-0235 total kcals 1.25-2 g protein/kg 91-146 g total protein 25-30 mL/kg 9027-9911 total fluid mLs NUTRITION DIAGNOSIS: 1) Increased kcal/pro needs R/T wound healing as evidenced by pt admitted w/ multiple wounds, sacral, BL buttocks full thickness. 2) Swallowing difficulty R/T respiratory status as evidenced by pt trach/PEG dep for all nutritional needs. CURRENT TF: Glucerna 1.2 @40/hr ENTERAL NUTRITION RECOMMENDATIONS: Glucerna 1.5 @ 50ml/hr x 24 hrs + Prosource x1 to provide 1200ml, 1800kcal, 99g + 11g prot, 911ml free water - Rec TF change to Glucerna 1.5 to better meet est kcal and protein needs - Start @ 20ml/hr x 6 hrs, increase by 10ml every 4-6 hrs to goal rate as tolerated - HOB 30-45 degrees/ water flush per MD ADDITIONAL RECOMMENDATIONS: 1. Maintain calibrated bed scale for accurate CBW 2. Wound healing: Add Christian 1pkt BID F/up w/ WC MANUEL keen 3. Monitor lytes daily, replete as needed Elevated Na (150), rec increase water flushes 4. F/up w/ H&P ICD Codes: Z93.1 - Gastrostomy status SNOMED: [id number], [id number] (3) Status post tracheostomy Assessment & Plan: need to monitor trach collar closely as worsening wound keep protected as above will monitor ICD Codes: Z93.0 - Tracheostomy status SNOMED: [id number] Steve Franks Jun 23, 2019 16:44
--- NOTE | 2019-06-23 18:00 | NUR ---
NURSE NOTES: Vital signs stable. Will continue to monitor temperature. Patient repositioned at this time. Still unable to administer second PRBC. Temp 100.1. Will continue to monitor.
--- NOTE | 2019-06-23 19:44 | NUR ---
HAND-OFF: Report given to MANUEL Yost. Patient temp still elevated at 100.1. COoling measures remain in placed. Endorse to administer 2nd PRBC when applicable.
--- NOTE | 2019-06-23 19:45 | NUR ---
NURSE NOTES: Lactic acid collected by manager labor relations.
[2019-06-23 19:50] LABS: ALANINE AMINOTRANSFERASE 9 U/L (12-78); ALBUMIN 1.4 G/DL (3.4-5.0); ALKALINE PHOSPHATASE 79 U/L (46-116); ASPARTATE AMINO TRANSFERASE 10 U/L (15-37); BILIRUBIN,DIRECT < 0.1 MG/DL (0.0-0.3); BILIRUBIN,TOTAL 0.3 MG/DL (0.2-1.0); PHOSPHORUS 1.8 MG/DL (2.5-4.9)
--- NOTE | 2019-06-23 20:05 | NUR ---
NURSE NOTES: Reported stat lab results to Dr. Green. Magnesium 1.5 and Phosphorous 1.8.
[2019-06-23] MEDS: Dyna-Hex 2% Top Sol 2oz TOPIC SCH (21:22)
[2019-06-23] MEDS ORDERED: Potassium Phosphate 20 MM in NS 275 ML IV ONE (21:30)
--- NOTE | 2019-06-23 22:00 | NUR ---
NURSE NOTES: PRBC not given until temperature drops. temp. 100.6 F. Cooling measures implemented.
[2019-06-24] VITALS (24 sets, daily range): BP systolic 96–128; BP diastolic 58–84
--- NOTE | 2019-06-24 | NUR ---
NURSE NOTES: PRBC stared and all drips with potassium temporarily stopped until PRBCs completed.
--- NOTE | 2019-06-24 00:53 | NUR ---
RESPIRATORY NOTE: Received pt on AC 12, 600VT, 30%, PEEP +5. Pt is trach-dependent w/ a cuffed, Portex 8 tube. Pt flat effect/obtunded. B/S osmel. rhonchi, sxn small to moderate amounts of thick, culver-yellow secretions. Vent plugged into red outlet, ambubag at bedside. Pt in no apparent distress at this time. Will continue to monitor pt.
[2019-06-24] MEDS: NovoLOG Insulin Flexpen SUBQ SCH ×3 (05:34→18:22)
[2019-06-24] MEDS: Sodium Citrate 30ml ORAL SCH ×3 (05:34→18:15)
--- NOTE | 2019-06-24 06:44 | Consultation ---
History of Present Illness General Chief Complaint: Dyspnea/Respdistress Present Illness Allergies: Coded Allergies: NO KNOWN DRUG ALLERGIES (Unverified Allergy, Unknown, 06/28/15) Medication History Scheduled Bacitracin Zinc* (Bacitracin Zinc*), 1 APPLIC TOPIC DAILY, (Reported) Cranberry Extract (Cranberry Juice Powder), 425 MG GT DAILY, (Reported) Ergocalciferol (Vitamin D2)* (Vitamin D*), 50,000 UNIT ORAL ONCE A WEEK, ( Reported) Esomeprazole Magnesium (Nexium), 40 MG GT BID, (Reported) Heparin Sod (Porcine) (Heparin Sodium*), 5,000 UNITS SUBQ EVERY 12 HOURS, ( Reported) Insulin Glargine (Lantus), 24 UNITS SUBQ BEDTIME, (Reported) Ipratropium/Albuterol Sulfate (DuoNeb 0.5-3(2.5)mg/3ml), 3 ML HHN Q4HR, ( Reported) Levetiracetam (Keppra), 5 ML GT TWICE A DAY, (Reported) Magnesium Hydroxide* (Milk Of Magnesia*), 30 ML GT DAILY, (Reported) Magnesium Oxide (Magnesium Oxide), 400 MG GT DAILY, (Reported) Metformin Hcl* (Metformin Hcl*), 1,000 MG GT BID, (Reported) Multivit-Min/Iron Fum/Folic AC (Kmrni-Vsuafiz-Maxyfszm Tablet), 1 EACH GT DAILY, (Reported) Zinc Oxide (Skin Protectant), 113 GM TP BID, (Reported) Scheduled PRN Acetaminophen 160MG/5ML* (Acetaminophen*), 20.3 ML GT Q4HR PRN for PAIN 1-3 OR TEMP > 100.4, (Reported) Miscellaneous Medications Insulin Lispro (Humalog), 0 SUBQ, (Reported) Lactulose (Lactulose*), 30 ML GT, (Reported) Patient History Healthcare decision maker N Resuscitation status Full Code Advanced Directive on File No Physical Exam Last 24 Hour Vital Signs Date Time Temp Pulse Resp B/P (MAP) Pulse Ox O2 Delivery O2 Flow Rate FiO2 06/24/19 06:00 99.2 83 30 121/84 (96) 100 06/24/19 05:16 78 30 30 06/24/19 05:00 80 31 115/72 (86) 100 06/24/19 04:00 83 29 108/64 (79) 98 06/24/19 04:00 Mechanical Ventilator 06/24/19 03:00 99.7 89 31 128/68 (88) 100 06/24/19 02:45 81 30 30 06/24/19 02:00 81 30 100 06/24/19 02:00 81 30 114/69 (84) 100 06/24/19 01:00 79 30 114/64 (81) 100 06/24/19 00:50 78 30 30 06/24/19 00:00 91 06/24/19 00:00 Mechanical Ventilator 06/24/19 00:00 99.7 84 31 115/58 (77) 100 06/23/19 23:12 86 31 30 06/23/19 22:30 99.7 83 31 116/66 (83) 100 06/23/19 22:00 89 32 115/65 (82) 100 06/23/19 21:24 82 31 30 06/23/19 21:00 100.5 81 30 115/66 (82) 100 06/23/19 20:00 89 06/23/19 20:00 30 06/23/19 20:00 Mechanical Ventilator 06/23/19 20:00 99.6 85 31 114/63 (80) 100 06/23/19 19:29 86 31 30 06/23/19 19:00 88 29 112/61 (78) 100 06/23/19 18:00 85 30 112/61 (78) 100 06/23/19 17:11 96 32 30 06/23/19 17:00 91 32 115/47 (69) 100 06/23/19 16:44 99.2 06/23/19 16:00 98.8 90 32 110/62 (78) 100 06/23/19 16:00 30 06/23/19 16:00 Mechanical Ventilator 06/23/19 16:00 84 06/23/19 15:00 88 31 109/60 (76) 100 06/23/19 14:40 90 31 30 06/23/19 14:00 92 32 118/66 (83) 100 06/23/19 13:20 94 32 30 06/23/19 13:00 89 33 116/63 (80) 100 06/23/19 12:00 98.6 91 31 111/66 (81) 100 06/23/19 12:00 Mechanical Ventilator 06/23/19 12:00 91 06/23/19 12:00 30 06/23/19 11:20 92 36 30 06/23/19 11:00 90 31 97/50 (66) 100 06/23/19 10:00 88 30 101/62 (75) 06/23/19 09:00 87 27 91/52 (65) 100 06/23/19 08:38 87 29 30 06/23/19 08:00 89 06/23/19 08:00 30 06/23/19 08:00 99.2 91 29 92/54 (67) 99 06/23/19 08:00 Mechanical Ventilator 06/23/19 07:02 86 29 30 06/23/19 07:00 100.0 94 28 93/52 (66) 99 Intake and Output 06/23/19 06/24/19 19:00 07:00 Intake Total 1439 ml 1568.5456 ml Output Total 1700 ml 1825 ml Balance -261 ml -256.4544 ml IV Total 769 ml 1128.5456 ml Tube Feeding 480 ml 440 ml Other 190 ml Output Urine Total 1500 ml 1825 ml Stool Total 200 ml # Bowel Movements 8 3 Laboratory Tests Test 06/23/19 09:15 06/23/19 13:18 06/23/19 18:47 06/23/19 20:10 Arterial Blood pH 7.326 (7.350-7.450) Arterial Blood Partial Pressure CO2 22.0 mmHg (35.0-45.0) *L Arterial Blood Partial Pressure O2 110.8 mmHg (75.0-100.0) H Arterial Blood HCO3 11.2 mmol/L (22.0-26.0) *L Arterial Blood Oxygen Saturation 98.4 % (95-100) Arterial Blood Base Excess -13.6 (-2-2) *L Donald Test Positive Stool Occult Blood Pending Uric Acid 4.4 MG/DL (2.6-7.2) Phosphorus Level 1.8 MG/DL (2.5-4.9) L Magnesium Level 1.5 MG/DL (1.8-2.4) L Total Bilirubin 0.3 MG/DL (0.2-1.0) Direct Bilirubin < 0.1 MG/DL (0.0-0.3) Aspartate Amino Transf (AST/SGOT) 10 U/L (15-37) L Alanine Aminotransferase (ALT/SGPT) 9 U/L (12-78) L Alkaline Phosphatase 79 U/L (46-116) Total Protein 6.1 G/DL (6.4-8.2) L Albumin 1.4 G/DL (3.4-5.0) L Vitamin B12 Level 1227 PG/ML (193-986) H Folate 18.1 NG/ML (8.6-58.9) Beta-Hydroxybutyric Acid Pending Acetone Level Negative (NEGATIVE) Lactic Acid Level 1.70 mmol/L (0.4-2.0) Test 06/24/19 05:58 White Blood Count Pending Red Blood Count Pending Hemoglobin Pending Hematocrit Pending Mean Corpuscular Volume Pending Mean Corpuscular Hemoglobin Pending Mean Corpuscular Hemoglobin Concent Pending Red Cell Distribution Width Pending Platelet Count Pending Mean Platelet Volume Pending Neutrophils (%) (Auto) Pending Lymphocytes (%) (Auto) Pending Monocytes (%) (Auto) Pending Eosinophils (%) (Auto) Pending Basophils (%) (Auto) Pending Sodium Level Pending Potassium Level Pending Chloride Level Pending Carbon Dioxide Level Pending Blood Urea Nitrogen Pending Creatinine Pending Estimat Glomerular Filtration Rate Pending Glucose Level Pending Lactic Acid Level Pending Uric Acid Pending Calcium Level Pending Phosphorus Level Pending Magnesium Level Pending Total Bilirubin Pending Gamma Glutamyl Transpeptidase Pending Aspartate Amino Transf (AST/SGOT) Pending Alanine Aminotransferase (ALT/SGPT) Pending Alkaline Phosphatase Pending Troponin I Pending C-Reactive Protein, Quantitative Pending Pro-B-Type Natriuretic Peptide Pending Total Protein Pending Albumin Pending Globulin Pending Triglycerides Level Pending Cholesterol Level Pending LDL Cholesterol Pending HDL Cholesterol Pending Cholesterol/HDL Ratio Pending Lipase Pending Thyroid Stimulating Hormone (TSH) Pending Random Amikacin Level Pending Microbiology Date/Time Source Procedure Growth Status 06/23/19 13:30 Nasopharynx - Final Complete 06/23/19 13:30 Nasopharynx - Final Complete Height (Feet): 5 Height (Inches): 7.00 Weight (Pounds): 163 Medications Current Medications Medications (Trade) Dose Ordered Sig/Tony Route PRN Reason Start Time Stop Time Status Last Admin Dose Admin Acetaminophen (Tylenol) 650 mg Q4H PRN GT Mild Pain/Temp > 100.5 06/22/19 01:00 07/22/19 00:59 06/23/19 16:14 Albuterol Sulfate (Proventil) 2.5 mg Q6HRT PRN HHN Bronchospasm 06/21/19 22:00 06/26/19 21:59 Amikacin Protocol (Amikacin pharmacy to dose) 1 ea DAILY PRN MISC Per rx protocol 06/23/19 12:15 07/23/19 12:14 Amikacin Sulfate 1000 mg/Sodium Chloride 114 ml @ 114 mls/hr Q24H IV 06/23/19 14:00 06/30/19 13:59 06/23/19 14:56 Cefepime HCl 1 gm/ Dextrose 55 ml @ 110 mls/hr EVERY 12 HOURS IVPB 06/23/19 09:00 06/30/19 08:59 06/23/19 21:24 Chlorhexidine Gluconate (Kay-Hex 2%) 1 applic DAILY@2000 TOPIC 06/22/19 20:00 07/22/19 19:59 06/23/19 21:22 Dextrose (Dextrose 50%) 25 ml Q30M PRN IV Hypoglycemia 06/21/19 22:00 07/21/19 21:59 Dextrose (Dextrose 50%) 50 ml Q30M PRN IV Hypoglycemia 06/21/19 22:00 07/21/19 21:59 Dextrose/ Electrolytes 1,000 ml @ 100 mls/hr Q10H IV 06/23/19 12:00 07/23/19 11:59 06/23/19 22:07 Heparin Sodium (Porcine) (Heparin 5000 units/ml) 5,000 units EVERY 12 HOURS SUBQ 06/22/19 09:00 07/22/19 08:59 06/22/19 20:52 Insulin Aspart (NovoLOG) Q6HR SUBQ 06/22/19 00:00 07/22/19 00:00 06/24/19 05:34 Levetiracetam (Keppra) 500 mg Q12HR GT 06/22/19 09:00 07/22/19 08:59 06/23/19 21:23 Linezolid 300 ml @ 300 mls/hr Q12HR IVPB 06/23/19 13:00 06/30/19 12:59 06/23/19 22:06 Norepinephrine Bitartrate 4 mg/ Dextrose 250 ml @ 0 mls/hr Q24H PRN IV For hypotension 06/21/19 22:00 07/21/19 21:59 Oseltamivir Phosphate (Tamiflu) 75 mg Q12HR ORAL 06/23/19 13:00 06/28/19 12:59 06/23/19 21:32 Pantoprazole (Protonix) 40 mg Q12HR IVP 06/23/19 21:00 07/22/19 06:29 06/23/19 21:23 Polyethylene Glycol (Miralax) 17 gm PRN PRN GT Constipation 06/21/19 22:00 07/21/19 21:59 Potassium Chloride (K-Dur) 40 meq Q8HR GT 06/23/19 14:15 07/23/19 14:14 06/24/19 05:35 Sodium Citrate (Bicitra) 45 ml EVERY 6 HOURS ORAL 06/23/19 14:15 07/23/19 14:14 06/24/19 05:34 Assessment/Plan Assessment/Plan: HEMATOLOGY-ONCOLOGY CONSULT NOTE REFERRING PHYSICIAN: Liset Wallace REASON FOR CONSULT: Progressive anemia DOS: 06/24/[address] Wallace to eval 48y old male a resident is well known to me, is resident of an extended care facility subacute unit, in stable condition over the last several months. He is known to have several chronic medical syndrome, but has been stable on his current medication. On the day of admission, he developed fever, tachycardia, leukocytosis, and hypoxia. He came to [facility] and was admitted. Hematology services consulted for the evaluation of leukocytosis and anemia. Labs and imaging have been reviewed. Currently started on abx. is on amikacin and cefepime. Is on a levo gtt. PAST MEDICAL HISTORY: The patient has intracerebral hemorrhage that was Followed by respiratory failure. He had to be intubated and placed on mechanical ventilation. He was unable to be weaned and underwent tracheostomy and gastrostomy. In addition to the, the patient is now in chronic respiratory failure. His Holli Coma Scale is 7. In addition, the patient has seizure disorder, high blood pressure, diabetes mellitus, morbid obesity, hyperlipidemia, and hypervitaminosis D. ALLERGIES: No known drug allergies. MEDICATIONS: The patient is on respiratory therapy with albuterol sulfate, ipratropium bromide inhalation therapy every 6 hours. He is on multivitamin daily. He is on zinc sulfate 220 mg daily. He is on Tylenol 650 q.6 hours p.r.n. for fever and pain. He is on sliding scale regular insulin of moderate intensity. He is on Lantus insulin 20 units at bedtime and 10 units in the a.m. , metformin 500 mg b.i.d. He is on lisinopril 20 mg daily. FAMILY HISTORY: Noncontributory. SOCIAL HISTORY: He is . His is daily at his bedside. HABITS: The patient did not smoke, drink, or use illicit drugs. REVIEW OF SYSTEMS: The patient is unable to give any information regarding his state of health. Physical Exam HEENT: normocephalic, bilateral eye PERRL Neck: normal inspection, supple, tracheotomy - site c/d/i ++ vent Respiratory: chest non-tender, lungs clear, normal breath sounds, chest symmetrical, palpation of chest normal Cardiovascular : normal peripheral pulses, regular rate, rhythm Gastrointestinal: normal inspection, non tender, soft, no mass, no guarding, no rebound, ++ feeding tube c/d/i Genitourinary: normal inspection, no CVA tenderness Musculoskeletal: back normal, gait/station normal, normal range of motion, non- tender, no calf tenderness Neurologic: nonverbal Skin: normal color, no darrell GI: ++ byrnes Labs: noted Imaging: reviewed ASSESSMENT AND RECOMMENDATIONS: # Anemia due to chronic disease v gi bleed, hgb downtrending since admission --> last time I saw this patient, hgb was 13.1, this was back in 2018 --> hgb trend 9-->8.1-->6.9 --> 2 units prbc for 06/24 --> iv iron x 5 days given, low sat and ferritin relative to inflammatory process # Coagulopathy is likely due to dic --> vit k as as need, ffp as well --> if worsening coagulopathy and bleeding given ffp --> at this time treatment of underlying process # Leukocytosis is likely related to underyling Pna --> has been started on abx --> now IMPROVEd # PNA with infiltrates --> with sepsis poa, is on broad spectrum abx --> on pressors in icu on adm # Chronic cholecystitis s/p cholecystostomy tube in the past # Chronic resp failure vent/trach dependant # Asthma/COPD # HTN # Dm2 # Dementia # CVA s/p vegetative state # Dysphagia s/p G-tube # seizure disorder # SNF resident GREATLY APPRECIATE CONSULTATION. Manolo Solares MD Jun 24, 2019 06:44
--- NOTE | 2019-06-24 07:10 | NUR ---
HAND-OFF: Report given to MANUEL Hayward.
--- NOTE | 2019-06-24 07:11 | NUR ---
NURSE NOTES: RECEIVED PATIENT FROM Ky NGUYEN RN. PATIENT IS LYING IN BED ASLEEP, OBTUNDED. HOOKED TO CLIENT CONSULTANT. TRACH TO VENT. PORTEX 8 WITH VENT SETTINGS AC 12, TV 600, FiO2 30%, PEEP 5. NO SIGNS OF DISTRESS OF THE MOMENT. GT IN PLACE WITH GTF RUNNING GLUCERNA 1.2 AT 40ML/HR. RECTAL TUBE NOTED. MARAVILLA CONNECTED TO BAG PATENT AND DRAINING URINE. NOTED SKIN ALTERATION. ON P200 MATTRESS. PIV ON R AC G24 AND R SC TLC WITH IVF RUNNING D5 1/2 NS AT 20MEQS/KCL AT 100ML/HR. CALL LIGHT WITHIN REACH. BED AT LOWEST POSITION. SIDE RAILS UP. WILL CONTINUE TO MONITOR.
[2019-06-24 07:18] LABS: ALANINE AMINOTRANSFERASE 10 U/L (12-78); ALBUMIN 1.4 G/DL (3.4-5.0); ALBUMIN/GLOBULIN RATIO 0.3 (1.0-2.7); ALKALINE PHOSPHATASE 84 U/L (46-116); ANION GAP 20 mmol/L (5-15); ASPARTATE AMINO TRANSFERASE 13 U/L (15-37); BILIRUBIN,TOTAL 0.3 MG/DL (0.2-1.0); BLOOD UREA NITROGEN 15 mg/dL (7-18); CALCIUM 9.5 MG/DL (8.5-10.1); CARBON DIOXIDE 14 MMOL/L (21-32); CHLORIDE 118 MMOL/L (98-107); CHOLESTEROL 68 MG/DL (< 200); CREATININE 0.7 MG/DL (0.55-1.30); HDL CHOLESTEROL 7 MG/DL (40-60); PHOSPHORUS 3.1 MG/DL (2.5-4.9); SODIUM 152 MMOL/L (136-145); TRIGLYCERIDES 153 MG/DL (30-150)
[2019-06-24 07:28] LABS: BASOPHILS % (AUTO) 0.4 % (0.0-2.0); EOSINOPHILS % (AUTO) 1.4 % (0.0-3.0); HEMATOCRIT 37.4 % (42.0-52.0); HEMOGLOBIN 12.5 G/DL (14.2-18.0); LYMPHOCYTES % (AUTO) 8.3 % (20.0-45.0); MEAN CORPUSCULAR VOLUME 81 FL (80-99); MONOCYTES % (AUTO) 7.4 % (1.0-10.0); NEUTROPHILS % (AUTO) 82.5 % (45.0-75.0); PLATELET COUNT 438 K/UL (150-450); RED BLOOD COUNT 4.61 M/UL (4.70-6.10); RED CELL DISTRIBUTION WIDTH 15.1 % (11.6-14.8); WHITE BLOOD COUNT 5.9 K/UL (4.8-10.8)
[2019-06-24 07:32] LABS: GAMMA GLUTAMYL TRANSPEPTIDASE 64 U/L (5-85)
[2019-06-24 07:45] LABS: POTASSIUM 2.5 MMOL/L (3.5-5.1)
[2019-06-24] MEDS: D5W w/KCl 20mEq 1,000 ML IV SCH ×2 (08:12→18:16)
[2019-06-24] MEDS: Oseltamivir 75mg cap ORAL SCH (08:12)
[2019-06-24] MEDS: Cefepime HCl 1 GM in D5W 55 ML IVPB SCH (08:12)
[2019-06-24] MEDS: Pantoprazole Inj IVP SCH ×2 (08:13→20:58)
[2019-06-24] MEDS: Heparin 5000 units/ml inj SUBQ SCH ×2 (08:14→21:00)
--- NOTE | 2019-06-24 09:00 | NUR ---
NURSE NOTES: SEEN AND EXAMINED BY DR FELDER WITH NEW ORDERS MADE AND CARRIED OUT.WILL CONTINUE TO MONITOR.
--- NOTE | 2019-06-24 09:37 | NUR ---
RADIOLOGY DEPT., CHEST X-RAY DONE.-P.DYE
--- NOTE | 2019-06-24 09:45 | NUR ---
NURSE NOTES: SEEN AND EXAMINED BY DR SIMMONS. INFORMED OF ABG RESULT. NEW ORDERS MADE. STILL ON SAME VENT SETTINGS. WILL CONTINUE TO MONITOR.
--- NOTE | 2019-06-24 09:50 | Pulmonolgy Critical Care Note ---
Critical Care - Asmt/Plan Problems: (1) Nosocomial pneumonia (2) Sepsis (3) Ventilator dependent (4) Chronic vegetative state (5) COPD (chronic obstructive pulmonary disease) (6) Feeding by G-tube (7) Diabetes mellitus, type II (8) Cerebral vascular disease (9) Seizure disorder (10) Chronic complete quadriplegia Respiratory: monitor respiratory rate, adjust FIO2, CXR Cardiac: continue to monitor HR/BP Renal: F/U I&O, check electrolytes Infectious Disease: check cultures, continue antibiotics Gastrointestinal: continue feedings/current rate Endocrine: check HgA1C Hematologic: transfuse if hgb<8.5 Neurologic: PRN Morphine, keep patient comfortable Affect: PRN ativan Prophylaxis: Heparin Time Spent (Minutes): 40 Notes Reviewed: cardio, renal Discussed with: nurses, consultants, correctional casework specialiststrategic accounts manager - Objective Last 24 Hour Vital Signs Date Time Temp Pulse Resp B/P (MAP) Pulse Ox O2 Delivery O2 Flow Rate FiO2 06/24/19 08:00 Mechanical Ventilator 06/24/19 08:00 30 06/24/19 08:00 98.8 79 27 112/70 (84) 100 06/24/19 07:00 81 29 113/73 (86) 100 06/24/19 06:00 99.2 83 30 121/84 (96) 100 06/24/19 05:16 78 30 30 06/24/19 05:00 80 31 115/72 (86) 100 06/24/19 04:00 30 06/24/19 04:00 83 29 108/64 (79) 98 06/24/19 04:00 Mechanical Ventilator 06/24/19 04:00 80 06/24/19 03:00 99.7 89 31 128/68 (88) 100 06/24/19 02:45 81 30 30 06/24/19 02:00 81 30 100 06/24/19 02:00 81 30 114/69 (84) 100 06/24/19 01:00 79 30 114/64 (81) 100 06/24/19 00:50 78 30 30 06/24/19 00:00 91 06/24/19 00:00 Mechanical Ventilator 06/24/19 00:00 99.7 84 31 115/58 (77) 100 06/23/19 23:12 86 31 30 06/23/19 22:30 99.7 83 31 116/66 (83) 100 06/23/19 22:00 89 32 115/65 (82) 100 06/23/19 21:24 82 31 30 06/23/19 21:00 100.5 81 30 115/66 (82) 100 06/23/19 20:00 89 06/23/19 20:00 30 06/23/19 20:00 Mechanical Ventilator 06/23/19 20:00 99.6 85 31 114/63 (80) 100 06/23/19 19:29 86 31 30 06/23/19 19:00 88 29 112/61 (78) 100 06/23/19 18:00 85 30 112/61 (78) 100 06/23/19 17:11 96 32 30 06/23/19 17:00 91 32 115/47 (69) 100 06/23/19 16:44 99.2 06/23/19 16:00 98.8 90 32 110/62 (78) 100 06/23/19 16:00 30 06/23/19 16:00 Mechanical Ventilator 06/23/19 16:00 84 06/23/19 15:00 88 31 109/60 (76) 100 06/23/19 14:40 90 31 30 06/23/19 14:00 92 32 118/66 (83) 100 06/23/19 13:20 94 32 30 06/23/19 13:00 89 33 116/63 (80) 100 06/23/19 12:00 98.6 91 31 111/66 (81) 100 06/23/19 12:00 Mechanical Ventilator 06/23/19 12:00 91 06/23/19 12:00 30 06/23/19 11:20 92 36 30 06/23/19 11:00 90 31 97/50 (66) 100 06/23/19 10:00 88 30 101/62 (75) Status: awake Condition: critical HEENT: atraumatic Lungs: chest wall tender Heart: HR/BP stable Abdomen: soft, active bowel sounds Extremities: no C/C/E, edema Decubiti: location Micro: Microbiology Date/Time Source Procedure Growth Status 06/21/19 18:10 Blood Blood Culture - Final Escherichia Coli - Esbl Complete 06/21/19 18:00 Blood Blood Culture - Preliminary NO GROWTH AFTER 48 HOURS Resulted 06/23/19 13:30 Nasopharynx - Final Complete 06/23/19 13:30 Nasopharynx - Final Complete 06/21/19 19:40 Nasal Nares MRSA Culture - Final NO METHICILLIN RESISTANT STAPH AUREUS... Complete 06/21/19 18:00 Urine,Clean Catch Urine Culture - Preliminary Escherichia Coli - Esbl Resulted 06/21/19 19:40 Rectum VRE Culture - Final Enterococcus Faecalis - Vre Complete 06/21/19 19:40 Rectum - Final NO CARBAPENEM-RESISTANT ENTEROBACTERI... Complete Accucheck: 205 Critical Care - Subjective ROS Limited/Unobtainable: Yes Condition: critical EKG Rhythm: Sinus Rhythm FI02: 30 Vent Support Breath Rate: 12 Vent Support Mode: AC Vent Tidal Volume: 600 Sputum Amount: Small PEEP: 5.0 PIP: 23 Tube Feeding Amount: 40 I&O: Intake and Output 06/23/19 06/24/19 19:00 07:00 Intake Total 1439 ml 1608.5456 ml Output Total 1700 ml 1925 ml Balance -261 ml -316.4544 ml IV Total 769 ml 1128.5456 ml Tube Feeding 480 ml 480 ml Other 190 ml Output Urine Total 1500 ml 1925 ml Stool Total 200 ml # Bowel Movements 8 3 Labs: Laboratory Tests Test 06/23/19 13:18 06/23/19 18:47 06/23/19 20:10 06/24/19 05:58 Stool Occult Blood Pending Uric Acid 4.4 MG/DL (2.6-7.2) 4.4 MG/DL (2.6-7.2) Phosphorus Level 1.8 MG/DL (2.5-4.9) L 3.1 MG/DL (2.5-4.9) Magnesium Level 1.5 MG/DL (1.8-2.4) L 2.1 MG/DL (1.8-2.4) Total Bilirubin 0.3 MG/DL (0.2-1.0) 0.3 MG/DL (0.2-1.0) Direct Bilirubin < 0.1 MG/DL (0.0-0.3) Aspartate Amino Transf (AST/SGOT) 10 U/L (15-37) L 13 U/L (15-37) L Alanine Aminotransferase (ALT/SGPT) 9 U/L (12-78) L 10 U/L (12-78) L Alkaline Phosphatase 79 U/L (46-116) 84 U/L (46-116) Total Protein 6.1 G/DL (6.4-8.2) L 6.5 G/DL (6.4-8.2) Albumin 1.4 G/DL (3.4-5.0) L 1.4 G/DL (3.4-5.0) L Vitamin B12 Level 1227 PG/ML (193-986) H Folate 18.1 NG/ML (8.6-58.9) Beta-Hydroxybutyric Acid Pending Acetone Level Negative (NEGATIVE) Lactic Acid Level 1.70 mmol/L (0.4-2.0) 1.80 mmol/L (0.4-2.0) White Blood Count 5.9 K/UL (4.8-10.8) Red Blood Count 4.61 M/UL (4.70-6.10) L Hemoglobin 12.5 G/DL (14.2-18.0) #L Hematocrit 37.4 % (42.0-52.0) #L Mean Corpuscular Volume 81 FL (80-99) Mean Corpuscular Hemoglobin 27.1 PG (27.0-31.0) Mean Corpuscular Hemoglobin Concent 33.4 G/DL (32.0-36.0) Red Cell Distribution Width 15.1 % (11.6-14.8) H Platelet Count 438 K/UL (150-450) Mean Platelet Volume 6.0 FL (6.5-10.1) L Neutrophils (%) (Auto) 82.5 % (45.0-75.0) H Lymphocytes (%) (Auto) 8.3 % (20.0-45.0) L Monocytes (%) (Auto) 7.4 % (1.0-10.0) Eosinophils (%) (Auto) 1.4 % (0.0-3.0) Basophils (%) (Auto) 0.4 % (0.0-2.0) Sodium Level 152 MMOL/L (136-145) H Potassium Level 2.5 MMOL/L (3.5-5.1) *L Chloride Level 118 MMOL/L (98-107) H Carbon Dioxide Level 14 MMOL/L (21-32) L Anion Gap 20 mmol/L (5-15) H Blood Urea Nitrogen 15 mg/dL (7-18) Creatinine 0.7 MG/DL (0.55-1.30) Estimat Glomerular Filtration Rate > 60 mL/min (>60) Glucose Level 263 MG/DL (74-106) #H Calcium Level 9.5 MG/DL (8.5-10.1) Gamma Glutamyl Transpeptidase 64 U/L (5-85) Troponin I 0.013 ng/mL (0.000-0.056) C-Reactive Protein, Quantitative 23.9 mg/dL (0.00-0.90) H Pro-B-Type Natriuretic Peptide 2898 pg/mL (0-125) H Globulin 5.1 g/dL Albumin/Globulin Ratio 0.3 (1.0-2.7) L Triglycerides Level 153 MG/DL (30-150) H Cholesterol Level 68 MG/DL (< 200) LDL Cholesterol 42 mg/dL (<100) HDL Cholesterol 7 MG/DL (40-60) L Cholesterol/HDL Ratio 9.7 (3.3-4.4) H Lipase > 2000 U/L (73-393) H Thyroid Stimulating Hormone (TSH) 0.234 uiU/mL (0.358-3.740) Random Amikacin Level Pending Test 06/24/19 08:45 Arterial Blood pH 7.426 (7.350-7.450) Arterial Blood Partial Pressure CO2 21.8 mmHg (35.0-45.0) *L Arterial Blood Partial Pressure O2 87.4 mmHg (75.0-100.0) Arterial Blood HCO3 14.0 mmol/L (22.0-26.0) *L Arterial Blood Oxygen Saturation 96.6 % (95-100) Arterial Blood Base Excess -9.2 (-2-2) *L Donald Test Positive Suzette Wallace MD Jun 24, 2019 09:49
--- NOTE | 2019-06-24 10:35 | NUR ---
NURSE NOTES: PATIENT KEPT CLEAN AND DRY. STILL ON RECTAL TUBE. WILL CONTINUE TO MONITOR.
--- NOTE | 2019-06-24 10:38 | Infectious Diseases Prog Note ---
Assessment/Plan Assessment/Plan Assessment: Severe Sepsis UTI Gram negative bacteremia Multifocal PNA -sp cx p -u/a wbc tnct, nit neg, leuk +3; ucx >100k ESBL E.coli (S Zosyn, Imi, Amikacin) -06/21 Bcx 2 ESBL E.coli (S Zosyn, Imi, Amikacin); 06/23 Bcx p -06/21 CXR:.New bilateral patchy airspace opacities in the left midlung an as well as the right upper lung concerning for multifocal pneumonia. Similar retrocardiac atelectasis or consolidation. -influenza sc neg Severe anion gap metabolic acidosis - ?etiology- normal lactic acid, normal Cr- BG levels between 119-170s- r/o DKA vs other HTN asthma COPD persistent vegetative state CVA Dm2 chronic respiratory failure s/p trach/vent dependent Dysphagia s/p GT NH resident Plan: -Switch empiric Cefepime #3 to Meropenem -Continue empiric IV Linezolid #2 pending sp cx -d/c IV amikacin #2 -D/c empiric Tamiflu #2 -06/23 SP flagyl #3 -06/22 SP Ertapenem x1 -06/21 SP Zosyn x1 -f/u cx -Monitor CBC/CMP, temperatures -f/u Bcx x2, sp cx -GT/trach/ICU care -aspiration precautions -neprho f/u Thank you for this consultation. Will continue to follow along with you. Discussed with RN Subjective Allergies: Coded Allergies: NO KNOWN DRUG ALLERGIES (Unverified Allergy, Unknown, 06/28/15) Subjective Tm 100.5 no leuckocytosis repeat Bcx p Objective Vital Signs Last 24 Hour Vital Signs Date Time Temp Pulse Resp B/P (MAP) Pulse Ox O2 Delivery O2 Flow Rate FiO2 06/24/19 10:00 80 30 96/63 (74) 100 06/24/19 09:00 84 30 103/66 (78) 100 06/24/19 08:00 79 06/24/19 08:00 Mechanical Ventilator 06/24/19 08:00 30 06/24/19 08:00 98.8 79 27 112/70 (84) 100 06/24/19 07:00 81 29 113/73 (86) 100 06/24/19 06:00 99.2 83 30 121/84 (96) 100 06/24/19 05:16 78 30 30 06/24/19 05:00 80 31 115/72 (86) 100 06/24/19 04:00 30 06/24/19 04:00 83 29 108/64 (79) 98 06/24/19 04:00 Mechanical Ventilator 06/24/19 04:00 80 06/24/19 03:00 99.7 89 31 128/68 (88) 100 06/24/19 02:45 81 30 30 06/24/19 02:00 81 30 100 06/24/19 02:00 81 30 114/69 (84) 100 06/24/19 01:00 79 30 114/64 (81) 100 06/24/19 00:50 78 30 30 06/24/19 00:00 91 06/24/19 00:00 Mechanical Ventilator 06/24/19 00:00 99.7 84 31 115/58 (77) 100 06/23/19 23:12 86 31 30 06/23/19 22:30 99.7 83 31 116/66 (83) 100 06/23/19 22:00 89 32 115/65 (82) 100 06/23/19 21:24 82 31 30 06/23/19 21:00 100.5 81 30 115/66 (82) 100 06/23/19 20:00 89 06/23/19 20:00 30 06/23/19 20:00 Mechanical Ventilator 06/23/19 20:00 99.6 85 31 114/63 (80) 100 06/23/19 19:29 86 31 30 06/23/19 19:00 88 29 112/61 (78) 100 06/23/19 18:00 85 30 112/61 (78) 100 06/23/19 17:11 96 32 30 06/23/19 17:00 91 32 115/47 (69) 100 06/23/19 16:44 99.2 06/23/19 16:00 98.8 90 32 110/62 (78) 100 06/23/19 16:00 30 06/23/19 16:00 Mechanical Ventilator 06/23/19 16:00 84 06/23/19 15:00 88 31 109/60 (76) 100 06/23/19 14:40 90 31 30 06/23/19 14:00 92 32 118/66 (83) 100 06/23/19 13:20 94 32 30 06/23/19 13:00 89 33 116/63 (80) 100 06/23/19 12:00 98.6 91 31 111/66 (81) 100 06/23/19 12:00 Mechanical Ventilator 06/23/19 12:00 91 06/23/19 12:00 30 06/23/19 11:20 92 36 30 06/23/19 11:00 90 31 97/50 (66) 100 Height (Feet): 5 Height (Inches): 7.00 Weight (Pounds): 164 Objective General Appearance: alert, Chronically Ill ENT: dry mucus membranes, other Neck: normal inspection, suppl limited range of motion, tracheotomy Respiratory: normal inspection, no respiratory distress, no wheezing Cardiovascular: regular rate, rhythm, no edema Gastrointestinal: normal bowel sounds, soft, no guarding, no hernia Musculoskeletal: normal range of motion, other - Bilateral upper and lower extremity motor weakness. Skin: no rash Microbiology Date/Time Source Procedure Growth Status 06/21/19 18:10 Blood Blood Culture - Final Escherichia Coli - Esbl Complete 06/21/19 18:00 Blood Blood Culture - Preliminary NO GROWTH AFTER 48 HOURS Resulted 06/23/19 13:30 Nasopharynx - Final Complete 06/23/19 13:30 Nasopharynx - Final Complete 06/21/19 19:40 Nasal Nares MRSA Culture - Final NO METHICILLIN RESISTANT STAPH AUREUS... Complete 06/21/19 18:00 Urine,Clean Catch Urine Culture - Preliminary Escherichia Coli - Esbl Resulted 06/21/19 19:40 Rectum VRE Culture - Final Enterococcus Faecalis - Vre Complete 06/21/19 19:40 Rectum - Final NO CARBAPENEM-RESISTANT ENTEROBACTERI... Complete Laboratory Tests Test 06/23/19 13:18 06/23/19 18:47 06/23/19 20:10 06/24/19 05:58 Stool Occult Blood Pending Uric Acid 4.4 MG/DL (2.6-7.2) 4.4 MG/DL (2.6-7.2) Phosphorus Level 1.8 MG/DL (2.5-4.9) L 3.1 MG/DL (2.5-4.9) Magnesium Level 1.5 MG/DL (1.8-2.4) L 2.1 MG/DL (1.8-2.4) Total Bilirubin 0.3 MG/DL (0.2-1.0) 0.3 MG/DL (0.2-1.0) Direct Bilirubin < 0.1 MG/DL (0.0-0.3) Aspartate Amino Transf (AST/SGOT) 10 U/L (15-37) L 13 U/L (15-37) L Alanine Aminotransferase (ALT/SGPT) 9 U/L (12-78) L 10 U/L (12-78) L Alkaline Phosphatase 79 U/L (46-116) 84 U/L (46-116) Total Protein 6.1 G/DL (6.4-8.2) L 6.5 G/DL (6.4-8.2) Albumin 1.4 G/DL (3.4-5.0) L 1.4 G/DL (3.4-5.0) L Vitamin B12 Level 1227 PG/ML (193-986) H Folate 18.1 NG/ML (8.6-58.9) Beta-Hydroxybutyric Acid Pending Acetone Level Negative (NEGATIVE) Lactic Acid Level 1.70 mmol/L (0.4-2.0) 1.80 mmol/L (0.4-2.0) White Blood Count 5.9 K/UL (4.8-10.8) Red Blood Count 4.61 M/UL (4.70-6.10) L Hemoglobin 12.5 G/DL (14.2-18.0) #L Hematocrit 37.4 % (42.0-52.0) #L Mean Corpuscular Volume 81 FL (80-99) Mean Corpuscular Hemoglobin 27.1 PG (27.0-31.0) Mean Corpuscular Hemoglobin Concent 33.4 G/DL (32.0-36.0) Red Cell Distribution Width 15.1 % (11.6-14.8) H Platelet Count 438 K/UL (150-450) Mean Platelet Volume 6.0 FL (6.5-10.1) L Neutrophils (%) (Auto) 82.5 % (45.0-75.0) H Lymphocytes (%) (Auto) 8.3 % (20.0-45.0) L Monocytes (%) (Auto) 7.4 % (1.0-10.0) Eosinophils (%) (Auto) 1.4 % (0.0-3.0) Basophils (%) (Auto) 0.4 % (0.0-2.0) Sodium Level 152 MMOL/L (136-145) H Potassium Level 2.5 MMOL/L (3.5-5.1) *L Chloride Level 118 MMOL/L (98-107) H Carbon Dioxide Level 14 MMOL/L (21-32) L Anion Gap 20 mmol/L (5-15) H Blood Urea Nitrogen 15 mg/dL (7-18) Creatinine 0.7 MG/DL (0.55-1.30) Estimat Glomerular Filtration Rate > 60 mL/min (>60) Glucose Level 263 MG/DL (74-106) #H Calcium Level 9.5 MG/DL (8.5-10.1) Gamma Glutamyl Transpeptidase 64 U/L (5-85) Troponin I 0.013 ng/mL (0.000-0.056) C-Reactive Protein, Quantitative 23.9 mg/dL (0.00-0.90) H Pro-B-Type Natriuretic Peptide 2898 pg/mL (0-125) H Globulin 5.1 g/dL Albumin/Globulin Ratio 0.3 (1.0-2.7) L Triglycerides Level 153 MG/DL (30-150) H Cholesterol Level 68 MG/DL (< 200) LDL Cholesterol 42 mg/dL (<100) HDL Cholesterol 7 MG/DL (40-60) L Cholesterol/HDL Ratio 9.7 (3.3-4.4) H Lipase > 2000 U/L (73-393) H Thyroid Stimulating Hormone (TSH) 0.234 uiU/mL (0.358-3.740) Random Amikacin Level Pending Test 06/24/19 08:45 Arterial Blood pH 7.426 (7.350-7.450) Arterial Blood Partial Pressure CO2 21.8 mmHg (35.0-45.0) *L Arterial Blood Partial Pressure O2 87.4 mmHg (75.0-100.0) Arterial Blood HCO3 14.0 mmol/L (22.0-26.0) *L Arterial Blood Oxygen Saturation 96.6 % (95-100) Arterial Blood Base Excess -9.2 (-2-2) *L Donald Test Positive Current Medications Medications (Trade) Dose Ordered Sig/Tony Route PRN Reason Start Time Stop Time Status Last Admin Dose Admin Acetaminophen (Tylenol) 650 mg Q4H PRN GT Mild Pain/Temp > 100.5 06/22/19 01:00 07/22/19 00:59 06/23/19 16:14 Albuterol Sulfate (Proventil) 2.5 mg Q6HRT PRN HHN Bronchospasm 06/21/19 22:00 06/26/19 21:59 Amikacin Protocol (Amikacin pharmacy to dose) 1 ea DAILY PRN MISC Per rx protocol 06/23/19 12:15 07/23/19 12:14 Amikacin Sulfate 1000 mg/Sodium Chloride 114 ml @ 114 mls/hr Q24H IV 06/23/19 14:00 06/30/19 13:59 06/23/19 14:56 Cefepime HCl 1 gm/ Dextrose 55 ml @ 110 mls/hr EVERY 12 HOURS IVPB 06/23/19 09:00 06/30/19 08:59 06/24/19 08:12 Chlorhexidine Gluconate (Kay-Hex 2%) 1 applic DAILY@2000 TOPIC 06/22/19 20:00 07/22/19 19:59 06/23/19 21:22 Dextrose (Dextrose 50%) 25 ml Q30M PRN IV Hypoglycemia 06/21/19 22:00 07/21/19 21:59 Dextrose (Dextrose 50%) 50 ml Q30M PRN IV Hypoglycemia 06/21/19 22:00 07/21/19 21:59 Dextrose/ Electrolytes 1,000 ml @ 100 mls/hr Q10H IV 06/23/19 12:00 07/23/19 11:59 06/24/19 08:12 Heparin Sodium (Porcine) (Heparin 5000 units/ml) 5,000 units EVERY 12 HOURS SUBQ 06/22/19 09:00 07/22/19 08:59 06/24/19 08:14 Insulin Aspart (NovoLOG) Q6HR SUBQ 06/22/19 00:00 07/22/19 00:00 06/24/19 05:34 Iron Sucrose 100 mg/Sodium Chloride 60 ml @ 240 mls/hr BEDTIME IV 06/24/19 21:00 06/28/19 21:14 Levetiracetam (Keppra) 500 mg Q12HR GT 06/22/19 09:00 07/22/19 08:59 06/24/19 08:13 Linezolid 300 ml @ 300 mls/hr Q12HR IVPB 06/23/19 13:00 06/30/19 12:59 06/24/19 08:12 Norepinephrine Bitartrate 4 mg/ Dextrose 250 ml @ 0 mls/hr Q24H PRN IV For hypotension 06/21/19 22:00 07/21/19 21:59 Oseltamivir Phosphate (Tamiflu) 75 mg Q12HR ORAL 06/23/19 13:00 06/28/19 12:59 06/24/19 08:12 Pantoprazole (Protonix) 40 mg Q12HR IVP 06/23/19 21:00 07/22/19 06:29 06/24/19 08:13 Polyethylene Glycol (Miralax) 17 gm PRN PRN GT Constipation 06/21/19 22:00 07/21/19 21:59 Potassium Chloride 100 ml @ 100 mls/hr Q1HR IVPB 06/24/19 09:00 06/24/19 14:59 06/24/19 10:17 Potassium Chloride (K-Dur) 40 meq Q8HR GT 06/23/19 14:15 07/23/19 14:14 06/24/19 05:35 Sodium Citrate (Bicitra) 45 ml EVERY 6 HOURS ORAL 06/23/19 14:15 07/23/19 14:14 06/24/19 05:34 Laura Gimenez M.D. Jun 24, 2019 10:38
--- NOTE | 2019-06-24 11:45 | Progress Note ---
DATE: 06/23/2019 SUBJECTIVE: The patient with low-grade fever without tachycardia. PHYSICAL EXAMINATION: VITAL SIGNS: Blood pressure 116/66, pulse is 81, respirations are 30, and temperature 99.6. HEENT: Eyes were normal. ENT, mucous membranes were moist and intact. NECK: Supple with no JVD without lymph nodes. Tracheostomy site is clean. LUNGS: Clear without rhonchi, rales, or wheezing. There are bilateral rhonchi at both bases. HEART: Normal sounds with regular beats. There is no S3, S4, or pericardial rub. There is no tachycardia at rest. ABDOMEN: Soft and nontender with normal bowel sounds. Gastrostomy site is clean. EXTREMITIES: Warm without cyanosis, clubbing, or edema. LABORATORY DATA: Hemoglobin is 6.9, hematocrit 31.2 with MCV of 81, WBC of 9.4, and platelets 385. His BUN and creatinine are 16 and 0.7 respectively. His sodium is 130, potassium 3.5, chloride 120, and CO2 is 11. His lactic acid is 1.7. His calcium is 4.4. SGOT, SGPT, and alkaline phosphatase are normal. done today and results are pending. Laboratory done, blood culture with gram-negative bacilli seen. Influenza A and B are negative in this patient. Blood culture grew gram-negative rods. 24 hours. Imaging study, abdominal ultrasound showed liver with fatty liver. . IMPRESSION AND PLAN: The patient still had sepsis with low-grade fever and intermittent tachycardia. Repeat laboratory tests will be done in the a.m. Liset Wallace M.D. DR: GEMMA JOB#: [id number] CC:
--- NOTE | 2019-06-24 12:29 | NUR ---
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 98.1 HR 79 RR 30 B/P 96/63 AC 12 TV 600 FIO2 30% PEEP 5 NA 152 K 2.5 LIPASE>2000 IS: IRON IV MEROPENEM IV PROTONIX IV ZYVOX IV D5KCL@ 1OOML/HR KCL IV ICU STATUS
--- NOTE | 2019-06-24 12:30 | NUR ---
NURSE NOTES: turned Addendum: 06/24/19 at 1506 by BERNIE MEADE RN NURSE NOTES: TURNED AND REPOSITIONED PATIENT. ORAL CARE DONE. WILL CONTINUE TO MONITOR.
--- NOTE | 2019-06-24 12:48 | Diagnostic Imaging Report ---
. Indication: Dyspnea Technique: One view of the chest Comparison: To 01/01/2020 Findings: There is increasing interstitial and airspace disease within the left lung. Interstitial and airspace disease in the right lung is unchanged. There is new or increased pleural fluid on the left. Right jugular central venous catheter, tracheostomy again demonstrated.. Impression: Increasing interstitial and airspace infiltrates versus edema in the left lung, over 3 days New or increased left pleural effusion Stable parenchymal disease on the right
--- NOTE | 2019-06-24 14:00 | NUR ---
NURSE NOTES: TOLERATING VENT SETTINGS AND TUBE FEEDING. NO SIGNS OF DISTRESS OF THE MOMENT.
[2019-06-24] MEDS: Meropenem 1 GM in NS 55 ML IVPB SCH ×2 (14:13→22:11)
--- NOTE | 2019-06-24 14:13 | Surgery Progress Note ---
Surgery Progress Note Subjective Additional Comments no acute events labs reviewed exam stable Objective Last 24 Hour Vital Signs Date Time Temp Pulse Resp B/P (MAP) Pulse Ox O2 Delivery O2 Flow Rate FiO2 06/24/19 13:26 80 27 30 06/24/19 12:00 97.9 73 31 112/69 (83) 100 06/24/19 12:00 30 06/24/19 12:00 73 06/24/19 11:16 73 31 30 06/24/19 11:00 81 30 102/66 (78) 100 06/24/19 10:00 80 30 96/63 (74) 100 06/24/19 09:01 84 32 30 06/24/19 09:00 84 30 103/66 (78) 100 06/24/19 08:00 79 06/24/19 08:00 Mechanical Ventilator 06/24/19 08:00 30 06/24/19 08:00 98.8 79 27 112/70 (84) 100 06/24/19 07:06 81 32 30 06/24/19 07:00 81 29 113/73 (86) 100 06/24/19 06:00 99.2 83 30 121/84 (96) 100 06/24/19 05:16 78 30 30 06/24/19 05:00 80 31 115/72 (86) 100 06/24/19 04:00 30 06/24/19 04:00 83 29 108/64 (79) 98 06/24/19 04:00 Mechanical Ventilator 06/24/19 04:00 80 06/24/19 03:00 99.7 89 31 128/68 (88) 100 06/24/19 02:45 81 30 30 06/24/19 02:00 81 30 100 06/24/19 02:00 81 30 114/69 (84) 100 06/24/19 01:00 79 30 114/64 (81) 100 06/24/19 00:50 78 30 30 06/24/19 00:00 91 06/24/19 00:00 Mechanical Ventilator 06/24/19 00:00 99.7 84 31 115/58 (77) 100 06/23/19 23:12 86 31 30 06/23/19 22:30 99.7 83 31 116/66 (83) 100 06/23/19 22:00 89 32 115/65 (82) 100 06/23/19 21:24 82 31 30 06/23/19 21:00 100.5 81 30 115/66 (82) 100 06/23/19 20:00 89 06/23/19 20:00 30 06/23/19 20:00 Mechanical Ventilator 06/23/19 20:00 99.6 85 31 114/63 (80) 100 06/23/19 19:29 86 31 30 06/23/19 19:00 88 29 112/61 (78) 100 06/23/19 18:00 85 30 112/61 (78) 100 06/23/19 17:11 96 32 30 06/23/19 17:00 91 32 115/47 (69) 100 06/23/19 16:44 99.2 06/23/19 16:00 98.8 90 32 110/62 (78) 100 06/23/19 16:00 30 06/23/19 16:00 Mechanical Ventilator 06/23/19 16:00 84 06/23/19 15:00 88 31 109/60 (76) 100 06/23/19 14:40 90 31 30 I&O Intake and Output 06/23/19 06/24/19 19:00 07:00 Intake Total 1439 ml 1708.5456 ml Output Total 1700 ml 1925 ml Balance -261 ml -216.4544 ml IV Total 769 ml 1228.5456 ml Tube Feeding 480 ml 480 ml Other 190 ml Output Urine Total 1500 ml 1925 ml Stool Total 200 ml # Bowel Movements 8 3 Dressing: other Wound: other Drains: other Cardiovascular: RSR Respiratory: decreased breath sounds Abdomen: non-tender, present bowel sounds, non-distended Extremities: no cyanosis Laboratory Tests Test 06/23/19 18:47 06/23/19 20:10 06/24/19 05:58 06/24/19 08:45 Uric Acid 4.4 MG/DL (2.6-7.2) 4.4 MG/DL (2.6-7.2) Phosphorus Level 1.8 MG/DL (2.5-4.9) L 3.1 MG/DL (2.5-4.9) Magnesium Level 1.5 MG/DL (1.8-2.4) L 2.1 MG/DL (1.8-2.4) Total Bilirubin 0.3 MG/DL (0.2-1.0) 0.3 MG/DL (0.2-1.0) Direct Bilirubin < 0.1 MG/DL (0.0-0.3) Aspartate Amino Transf (AST/SGOT) 10 U/L (15-37) L 13 U/L (15-37) L Alanine Aminotransferase (ALT/SGPT) 9 U/L (12-78) L 10 U/L (12-78) L Alkaline Phosphatase 79 U/L (46-116) 84 U/L (46-116) Total Protein 6.1 G/DL (6.4-8.2) L 6.5 G/DL (6.4-8.2) Albumin 1.4 G/DL (3.4-5.0) L 1.4 G/DL (3.4-5.0) L Vitamin B12 Level 1227 PG/ML (193-986) H Folate 18.1 NG/ML (8.6-58.9) Beta-Hydroxybutyric Acid Pending Acetone Level Negative (NEGATIVE) Lactic Acid Level 1.70 mmol/L (0.4-2.0) 1.80 mmol/L (0.4-2.0) White Blood Count 5.9 K/UL (4.8-10.8) Red Blood Count 4.61 M/UL (4.70-6.10) L Hemoglobin 12.5 G/DL (14.2-18.0) #L Hematocrit 37.4 % (42.0-52.0) #L Mean Corpuscular Volume 81 FL (80-99) Mean Corpuscular Hemoglobin 27.1 PG (27.0-31.0) Mean Corpuscular Hemoglobin Concent 33.4 G/DL (32.0-36.0) Red Cell Distribution Width 15.1 % (11.6-14.8) H Platelet Count 438 K/UL (150-450) Mean Platelet Volume 6.0 FL (6.5-10.1) L Neutrophils (%) (Auto) 82.5 % (45.0-75.0) H Lymphocytes (%) (Auto) 8.3 % (20.0-45.0) L Monocytes (%) (Auto) 7.4 % (1.0-10.0) Eosinophils (%) (Auto) 1.4 % (0.0-3.0) Basophils (%) (Auto) 0.4 % (0.0-2.0) Sodium Level 152 MMOL/L (136-145) H Potassium Level 2.5 MMOL/L (3.5-5.1) *L Chloride Level 118 MMOL/L (98-107) H Carbon Dioxide Level 14 MMOL/L (21-32) L Anion Gap 20 mmol/L (5-15) H Blood Urea Nitrogen 15 mg/dL (7-18) Creatinine 0.7 MG/DL (0.55-1.30) Estimat Glomerular Filtration Rate > 60 mL/min (>60) Glucose Level 263 MG/DL (74-106) #H Calcium Level 9.5 MG/DL (8.5-10.1) Gamma Glutamyl Transpeptidase 64 U/L (5-85) Troponin I 0.013 ng/mL (0.000-0.056) C-Reactive Protein, Quantitative 23.9 mg/dL (0.00-0.90) H Pro-B-Type Natriuretic Peptide 2898 pg/mL (0-125) H Globulin 5.1 g/dL Albumin/Globulin Ratio 0.3 (1.0-2.7) L Triglycerides Level 153 MG/DL (30-150) H Cholesterol Level 68 MG/DL (< 200) LDL Cholesterol 42 mg/dL (<100) HDL Cholesterol 7 MG/DL (40-60) L Cholesterol/HDL Ratio 9.7 (3.3-4.4) H Lipase > 2000 U/L (73-393) H Thyroid Stimulating Hormone (TSH) 0.234 uiU/mL (0.358-3.740) Random Amikacin Level Pending Arterial Blood pH 7.426 (7.350-7.450) Arterial Blood Partial Pressure CO2 21.8 mmHg (35.0-45.0) *L Arterial Blood Partial Pressure O2 87.4 mmHg (75.0-100.0) Arterial Blood HCO3 14.0 mmol/L (22.0-26.0) *L Arterial Blood Oxygen Saturation 96.6 % (95-100) Arterial Blood Base Excess -9.2 (-2-2) *L Donald Test Positive Plan Problems: (1) Decubitus skin ulcer Assessment & Plan: Pt presented on admission with multiple pressure injuries and Moisture Associated Skin damage Buttocks and Bilateral groin. Both earlobes including medial canals noted to have scaly red plaques and and small lesions. Full thickness stage 3 pressure injury posterior neck under collar of trach. Base of wound has 25% slough,75% beefy red .Small amt serosanguineous exudate noted. Borders are macerated. Surrounding skin is clean and dry. Moisture Associated Skin Damage noted to bilateral groin areas,Buttocks and bilateral ischium. Skin is grossly erythematous and denuded with scattered satellite lesions. Full thickness stage 3 sacral pressure injury. Base of wound is 25% necrotic ,30 % slough ,otherwise beefy red with small amt serous exudate.Borders are macerated.(L)(L)8.5cm x (W)10cm. Periwound MASD. Full Thickness stage 3 pressure injury R trochanter. Base of wound 80% beefy red ,20% slough. Small amt serous exudate. Borders are macerated(L)3cm x (W) 3.2cm. No odor noted.Periwound MASD. Full Thickness stage 3 pressure injury R ischium. Base of wound is 25% necrotic , beefy red with scattered slough. Borders are macerated. Small amt serous exudate noted. No odor noted.(L)5.3cm x (W)3.9cm. Periwound MASD. Full thickness stage 3 pressure injury L Ischium. Base of wound is beefy red and moist. Borders are macerated. Small amt serous exudate noted.(L)4cm x (W) 3.2cm x (D)0.2cm. Both heels are pink and easily blanchable. Bilat foot drop noted. Tx.Plan: Cleanse wounds on Buttocks, sacrum, ishium, trochanter with Saline. Apply Therahoney to wounds. Apply Triad Paste periwound to cover erythematous skin. Cover with Optifoam drsgs Daily and prn. Apply Phytoplex Lotion to R and L ears daily and prn. Apply Cavilon Skin Barrier to Both heels. Cover each heel with Optifoam drsg. Change every 7 days and prn. APM/MAICOL Mattress overlay. Reposition at least every 2hours or as tolerated. Off-load heels with pillow. Place pillow between knees. (2) Feeding by G-tube Assessment & Plan: DAILY ESTIMATED NEEDS: Needs based on Critical care, wounds 73kg 22-30 kcals/kg 6679-7637 total kcals 1.25-2 g protein/kg 91-146 g total protein 25-30 mL/kg 9630-0888 total fluid mLs NUTRITION DIAGNOSIS: 1) Increased kcal/pro needs R/T wound healing as evidenced by pt admitted w/ multiple wounds, sacral, BL buttocks full thickness. 2) Swallowing difficulty R/T respiratory status as evidenced by pt trach/PEG dep for all nutritional needs. CURRENT TF: Glucerna 1.2 @40/hr ENTERAL NUTRITION RECOMMENDATIONS: Glucerna 1.5 @ 50ml/hr x 24 hrs + Prosource x1 to provide 1200ml, 1800kcal, 99g + 11g prot, 911ml free water - Rec TF change to Glucerna 1.5 to better meet est kcal and protein needs - Start @ 20ml/hr x 6 hrs, increase by 10ml every 4-6 hrs to goal rate as tolerated - HOB 30-45 degrees/ water flush per MD ADDITIONAL RECOMMENDATIONS: 1. Maintain calibrated bed scale for accurate CBW 2. Wound healing: Add Christian 1pkt BID F/up w/ WC MANUEL keen 3. Monitor lytes daily, replete as needed Elevated Na (150), rec increase water flushes 4. F/up w/ H&P (3) Status post tracheostomy Assessment & Plan: need to monitor trach collar closely as worsening wound keep protected as above will monitor Steve Franks Jun 24, 2019 14:13
[2019-06-24] MEDS ORDERED: NS 275ml ONE (15:05)
[2019-06-24] MEDS ORDERED: D5 1/2NS 1000ml IV ONE (15:05)
[2019-06-24] MEDS ORDERED: Tubing IV Secondary IV ONE (15:05)
--- NOTE | 2019-06-24 16:00 | NUR ---
NURSE NOTES: PATIENT KEPT CLEAN AND DRY. TURNED AND REPOSITIONED PATIENT. WILL CONTINUE TO MONITOR.
--- NOTE | 2019-06-24 16:49 | Nephrology Progress Note ---
Assessment/Plan Problem List: (1) Metabolic acidosis (2) Acute blood loss anemia (3) Hypokalemia (4) Chronic respiratory failure Assessment Metabolic Acidosis HypoKalemia HyperNatremia Severe Anemia Other Conditions: (1) Nosocomial pneumonia (2) Sepsis (3) Ventilator dependent (4) Chronic vegetative state (5) COPD (chronic obstructive pulmonary disease) (6) Feeding by G-tube (7) Diabetes mellitus, type II (8) Cerebral vascular disease (9) Seizure disorder (10) Chronic complete quadriplegia Plan K via GT Bicitra GT K via IV D5W Protonix IV Anemia jimenez Transfusion per orders Subjective ROS Limited/Unobtainable: Yes Objective Objective Last 24 Hour Vital Signs Date Time Temp Pulse Resp B/P (MAP) Pulse Ox O2 Delivery O2 Flow Rate FiO2 06/24/19 15:00 77 28 103/65 (78) 100 06/24/19 15:00 77 28 100 06/24/19 15:00 77 28 100 06/24/19 15:00 77 28 100 06/24/19 15:00 82 29 30 06/24/19 14:00 87 29 103/64 (77) 100 06/24/19 13:26 80 27 30 06/24/19 13:00 80 30 110/74 (86) 100 06/24/19 12:00 97.9 73 31 112/69 (83) 100 06/24/19 12:00 30 06/24/19 12:00 73 06/24/19 12:00 Mechanical Ventilator 06/24/19 11:16 73 31 30 06/24/19 11:00 81 30 102/66 (78) 100 06/24/19 10:00 80 30 96/63 (74) 100 06/24/19 09:01 84 32 30 06/24/19 09:00 84 30 103/66 (78) 100 06/24/19 08:00 79 06/24/19 08:00 Mechanical Ventilator 06/24/19 08:00 30 06/24/19 08:00 98.8 79 27 112/70 (84) 100 06/24/19 07:06 81 32 30 06/24/19 07:00 81 29 113/73 (86) 100 06/24/19 06:00 99.2 83 30 121/84 (96) 100 06/24/19 05:16 78 30 30 06/24/19 05:00 80 31 115/72 (86) 100 06/24/19 04:00 30 06/24/19 04:00 83 29 108/64 (79) 98 06/24/19 04:00 Mechanical Ventilator 06/24/19 04:00 80 06/24/19 03:00 99.7 89 31 128/68 (88) 100 06/24/19 02:45 81 30 30 06/24/19 02:00 81 30 100 06/24/19 02:00 81 30 114/69 (84) 100 06/24/19 01:00 79 30 114/64 (81) 100 06/24/19 00:50 78 30 30 06/24/19 00:00 91 06/24/19 00:00 Mechanical Ventilator 06/24/19 00:00 99.7 84 31 115/58 (77) 100 06/23/19 23:12 86 31 30 06/23/19 22:30 99.7 83 31 116/66 (83) 100 06/23/19 22:00 89 32 115/65 (82) 100 06/23/19 21:24 82 31 30 06/23/19 21:00 100.5 81 30 115/66 (82) 100 06/23/19 20:00 89 06/23/19 20:00 30 06/23/19 20:00 Mechanical Ventilator 06/23/19 20:00 99.6 85 31 114/63 (80) 100 06/23/19 19:29 86 31 30 06/23/19 19:00 88 29 112/61 (78) 100 06/23/19 18:00 85 30 112/61 (78) 100 06/23/19 17:11 96 32 30 06/23/19 17:00 91 32 115/47 (69) 100 Intake and Output 06/23/19 06/24/19 19:00 07:00 Intake Total 1439 ml 1708.5456 ml Output Total 1700 ml 1925 ml Balance -261 ml -216.4544 ml IV Total 769 ml 1228.5456 ml Tube Feeding 480 ml 480 ml Other 190 ml Output Urine Total 1500 ml 1925 ml Stool Total 200 ml # Bowel Movements 8 3 Laboratory Tests 06/23/19 18:47: Uric Acid 4.4, Phosphorus Level 1.8L, Magnesium Level 1.5L, Total Bilirubin 0.3 , Direct Bilirubin < 0.1, Aspartate Amino Transf (AST/SGOT) 10L, Alanine Aminotransferase (ALT/SGPT) 9L, Alkaline Phosphatase 79, Total Protein 6.1L, Albumin 1.4L, Vitamin B12 Level 1227H, Folate 18.1, Beta-Hydroxybutyric Acid [ Pending], Acetone Level Negative 06/23/19 20:10: Lactic Acid Level 1.70 06/24/19 05:58: Uric Acid 4.4, Phosphorus Level 3.1, Magnesium Level 2.1, Total Bilirubin 0.3, Aspartate Amino Transf (AST/SGOT) 13L, Alanine Aminotransferase (ALT/SGPT) 10L, Alkaline Phosphatase 84, Total Protein 6.5, Albumin 1.4L, Lactic Acid Level 1.80 , White Blood Count 5.9, Red Blood Count 4.61L, Hemoglobin 12.5#L, Hematocrit 37.4#L, Mean Corpuscular Volume 81, Mean Corpuscular Hemoglobin 27.1, Mean Corpuscular Hemoglobin Concent 33.4, Red Cell Distribution Width 15.1H, Platelet Count 438, Mean Platelet Volume 6.0L, Neutrophils (%) (Auto) 82.5H, Lymphocytes (%) (Auto) 8.3L, Monocytes (%) (Auto) 7.4, Eosinophils (%) (Auto) 1.4, Basophils (%) (Auto) 0.4, Sodium Level 152H, Potassium Level 2.5*L, Chloride Level 118H, Carbon Dioxide Level 14L, Anion Gap 20H, Blood Urea Nitrogen 15, Creatinine 0.7, Estimat Glomerular Filtration Rate > 60, Glucose Level 263#H, Calcium Level 9.5, Gamma Glutamyl Transpeptidase 64, Troponin I 0.013, C-Reactive Protein, Quantitative 23.9H, Pro-B-Type Natriuretic Peptide 2898H, Globulin 5.1, Albumin/Globulin Ratio 0.3L, Triglycerides Level 153H, Cholesterol Level 68, LDL Cholesterol 42, HDL Cholesterol 7L, Cholesterol/HDL Ratio 9.7H, Lipase > 2000H, Thyroid Stimulating Hormone (TSH) 0.234L, Random Amikacin Level [Pending] 06/24/19 08:45: Arterial Blood pH 7.426, Arterial Blood Partial Pressure CO2 21.8*L, Arterial Blood Partial Pressure O2 87.4, Arterial Blood HCO3 14.0*L, Arterial Blood Oxygen Saturation 96.6, Arterial Blood Base Excess -9.2*L, Donald Test Positive Height (Feet): 5 Height (Inches): 7.00 Weight (Pounds): 164 General Appearance: no apparent distress EENT: other - trach Cardiovascular: normal rate Respiratory/Chest: decreased breath sounds Abdomen: soft Ricky Green MD Jun 24, 2019 16:49
--- NOTE | 2019-06-24 18:00 | NUR ---
NURSE NOTES: SEEN AT THE BEDSIDE. TOLERATING TUBE FEEDING AND VENT SETTINGS. VSS. WILL CONTINUE TO MONITOR.
--- NOTE | 2019-06-24 19:20 | NUR ---
RESPIRATORY NOTE: PT RECEIVED STABLE ON CMV WITH CURRENT SETTINGS: AC/VC+ 12, 600, 0.80, 30% +5. ALARMS ARE ON AND AUDIBLE. VENT CIRCUIT AND SX TUBBING ARE SECURE AND OUT OF THE WAY. PT DOES PRESENT INCREASED RR BUT APPEARS IN NO RESPIRATORY DISTRESS AT THIS TIME. WILL CONTINUE TO CLOSELY MONITOR.
--- NOTE | 2019-06-24 19:25 | NUR ---
NURSE NOTES: Late entry: PT and report received from Tere JACKSON; remains on trach to vent portex 8, AC 12, TV 600, 30%, peep 5; no S/S of respiratory distress noted; saturating at 100%; quality assurance monitor final shows HR 73, SR; received with GT running glucerna 1.2 @ goal of 40cc/hr, 5cc residual noted on drawback; PT has byrnes and rectal tube draining patent intact will monitor; PT has R-AC 20g and R-sub clav. TLC infusing D5 1/2NS 20mEq K @ 100cc/hr remains patent flushes well; received on P200 mattress, bed alarm on bed locked at lowest position, side rails x 2 padded for seizure precautions, will continue to monitor PT and follow with plan of care. Addendum: 06/24/19 at 2021 by Ponce Jara RN NURSE NOTES: (Correction on fluids) Late entry: PT and report received from Tere JACKSON; remains on trach to vent portex 8, AC 12, TV 600, 30%, peep 5; no S/S of respiratory distress noted; saturating at 100%; quality assurance monitor final shows HR 73, SR; received with GT running glucerna 1.2 @ goal of 40cc/hr, 5cc residual noted on drawback; PT has byrnes and rectal tube draining patent intact will monitor; PT has R-AC 20g and R-sub clav. TLC infusing D5W 20mEq K @ 100cc/hr remains patent flushes well; received on P200 mattress, bed alarm on bed locked at lowest position, side rails x 2 padded for seizure precautions, will continue to monitor PT and follow with plan of care.
[2019-06-24] MEDS: Dyna-Hex 2% Top Sol 2oz TOPIC SCH (20:57)
[2019-06-24] MEDS: Iron Sucrose 100 MG in NS 55 ML IV SCH (20:58)
--- NOTE | 2019-06-24 21:52 | NUR ---
NURSE NOTES: PT VS stable, no S/S of respiratory distress noted, will continue to monitor.
--- NOTE | 2019-06-24 22:08 | NUR ---
NURSE NOTES: Dropped 1 dose of 20mEq K on floor wasted it on pyxis, returned 1 dose of 20mEq back to pyxis.
[2019-06-25] VITALS (23 sets, daily range): BP systolic 105–131; BP diastolic 65–80
[2019-06-25] MEDS: Sodium Citrate 30ml ORAL SCH ×4 (01:41→17:04)
[2019-06-25] MEDS: NovoLOG Insulin Flexpen SUBQ SCH ×4 (01:43→17:08)
--- NOTE | 2019-06-25 01:49 | NUR ---
NURSE NOTES: VS stable, no S/S of respiratory distress, will continue to monitor.
--- NOTE | 2019-06-25 02:30 | NUR ---
NURSE NOTES: Late entry: PT complete bed bath given with MANUEL Bauer; dressing for wound changed also, rectal tube remains intact, will continue to monitor PT.
[2019-06-25] MEDS: D5W w/KCl 20mEq 1,000 ML IV SCH (04:18)
--- NOTE | 2019-06-25 05:00 | NUR ---
RESPIRATORY NOTE: PT REMAINED STABLE ON CMV WITH CURRENT SETTINGS. SX'D PRN WITH NO ADVERSE REACTION. VENT CIRCUIT AND SX TUBBING SECURE AND OUT OF THE WAY. NO S/S OF RESPIRATORY DISTRESS NOTED AT THIS TIME.
[2019-06-25] MEDS: Meropenem 1 GM in NS 55 ML IVPB SCH ×3 (05:51→22:34)
--- NOTE | 2019-06-25 07:00 | NUR ---
HAND-OFF: Report and PT given to MANUEL Hayward.
--- NOTE | 2019-06-25 07:01 | NUR ---
NURSE NOTES: RECEIVED PATIENT FROM Bailee MCKEON RN. PATIENT IS LYING IN BED ASLEEP, OBTUNDED. HOOKED TO EDGER HAND. TRACH TO VENT. PORTEX 8 WITH VENT SETTINGS AC 12, TV 600, FiO2 30%, PEEP 5. NO SIGNS OF DISTRESS OF THE MOMENT. GT IN PLACE WITH GTF RUNNING GLUCERNA 1.2 AT 40ML/HR ON GOAL. RECTAL TUBE NOTED. MARAVILLA CONNECTED TO BAG PATENT AND DRAINING URINE. NOTED SKIN ALTERATION. ON P200 MATTRESS. PIV ON R AC G24 AND R SC TLC WITH IVF RUNNING D5 1/2 NS AT 20MEQS/KCL AT 100ML/HR. CALL LIGHT WITHIN REACH. BED AT LOWEST POSITION. SIDE RAILS UP. WILL CONTINUE TO MONITOR.
[2019-06-25 07:04] LABS: ALANINE AMINOTRANSFERASE 10 U/L (12-78); ALBUMIN 1.4 G/DL (3.4-5.0); ALBUMIN/GLOBULIN RATIO 0.3 (1.0-2.7); ALKALINE PHOSPHATASE 81 U/L (46-116); ANION GAP 16 mmol/L (5-15); ASPARTATE AMINO TRANSFERASE 14 U/L (15-37); BILIRUBIN,TOTAL 0.3 MG/DL (0.2-1.0); BLOOD UREA NITROGEN 15 mg/dL (7-18); CALCIUM 8.8 MG/DL (8.5-10.1); CARBON DIOXIDE 18 MMOL/L (21-32); CHLORIDE 113 MMOL/L (98-107); CREATININE 0.7 MG/DL (0.55-1.30); PHOSPHORUS 2.6 MG/DL (2.5-4.9); SODIUM 147 MMOL/L (136-145)
--- NOTE | 2019-06-25 08:04 | NUR ---
NURSE NOTES: SEEN AND EXAMINED BY DR CARRINGTON. FOR FFUP ON CBC. NO NEW ORDER.
[2019-06-25 08:33] LABS: HEMATOCRIT 20.9 % (42.0-52.0); HEMOGLOBIN 7.2 G/DL (14.2-18.0); MEAN CORPUSCULAR VOLUME 81 FL (80-99); PLATELET COUNT 491 K/UL (150-450); RED BLOOD COUNT 2.59 M/UL (4.70-6.10); RED CELL DISTRIBUTION WIDTH 14.7 % (11.6-14.8); WHITE BLOOD COUNT 9.4 K/UL (4.8-10.8)
[2019-06-25] MEDS: Pantoprazole Inj IVP SCH ×2 (08:47→20:41)
[2019-06-25] MEDS: Heparin 5000 units/ml inj SUBQ SCH (08:48)
--- NOTE | 2019-06-25 08:59 | NUR ---
RADIOLOGY DEPT., CHEST X-RAY DONE.-P.DYE
--- NOTE | 2019-06-25 09:22 | NUR ---
NURSE NOTES: SEEN AND EXAMINED BY DR FELDER. NEW ORDER MADE. INFORMED DR CARRINGTON ON CBC AND DR SIMMONS FOR ABG RESULT. AWAITING FOR CALL BACK. WILL CONTINUE TO MONITOR.
--- NOTE | 2019-06-25 09:24 | NUR ---
NURSE NOTES: NEW ORDER RECEIVED FROM DR CARRINGTON.
--- NOTE | 2019-06-25 09:49 | NUR ---
NURSE NOTES: NEW ORDER RECEIVED FROM DR SIMMONS. TITRATED VT. WILL CONTINUE TO MONITOR.
--- NOTE | 2019-06-25 10:00 | Surgery Progress Note ---
Surgery Progress Note Subjective Additional Comments no acute events comfortable appearing labs reviewed imagingnoted Objective Last 24 Hour Vital Signs Date Time Temp Pulse Resp B/P (MAP) Pulse Ox O2 Delivery O2 Flow Rate FiO2 06/25/19 09:48 30 06/25/19 08:39 82 29 30 06/25/19 08:00 30 06/25/19 08:00 Mechanical Ventilator 06/25/19 08:00 99.3 73 27 114/71 (85) 99 06/25/19 07:30 72 30 30 06/25/19 07:00 69 29 118/69 (85) 100 06/25/19 06:00 74 30 117/79 (92) 100 06/25/19 05:00 71 26 30 06/25/19 05:00 75 29 118/70 (86) 100 06/25/19 04:00 98.3 79 29 110/67 (81) 98 06/25/19 04:00 76 06/25/19 04:00 Mechanical Ventilator 06/25/19 04:00 30 06/25/19 03:05 77 27 30 06/25/19 03:00 73 29 112/70 (84) 99 06/25/19 02:00 74 29 113/73 (86) 99 06/25/19 01:13 76 30 30 06/25/19 01:00 76 30 106/66 (79) 98 06/25/19 00:00 98.5 79 29 107/69 (82) 98 06/25/19 00:00 Mechanical Ventilator 06/24/19 23:00 78 30 119/77 (91) 100 06/24/19 22:58 75 28 30 06/24/19 22:00 73 29 111/72 (85) 100 06/24/19 21:00 84 29 109/67 (81) 100 06/24/19 20:39 78 30 30 06/24/19 20:00 98.7 79 28 111/71 (84) 100 06/24/19 20:00 Mechanical Ventilator 06/24/19 20:00 74 06/24/19 20:00 30 06/24/19 19:20 82 31 30 06/24/19 19:00 78 30 119/75 (90) 100 06/24/19 18:00 83 28 108/78 (88) 98 06/24/19 17:28 84 29 30 06/24/19 17:00 81 28 98/63 (75) 100 06/24/19 16:00 82 06/24/19 16:00 98.1 81 28 102/66 (78) 100 06/24/19 16:00 30 06/24/19 16:00 Mechanical Ventilator 06/24/19 15:00 77 28 103/65 (78) 100 06/24/19 15:00 82 29 30 06/24/19 14:00 87 29 103/64 (77) 100 06/24/19 13:26 80 27 30 06/24/19 13:00 80 30 110/74 (86) 100 06/24/19 12:00 97.9 73 31 112/69 (83) 100 06/24/19 12:00 30 06/24/19 12:00 73 06/24/19 12:00 Mechanical Ventilator 06/24/19 11:16 73 31 30 06/24/19 11:00 81 30 102/66 (78) 100 06/24/19 10:00 80 30 96/63 (74) 100 I&O Intake and Output 06/24/19 06/25/19 19:00 07:00 Intake Total 2585 ml 2240 ml Output Total 2550 ml 1750 ml Balance 35 ml 490 ml Intake Free Water 90 ml 60 ml IV Total 2015 ml 1670 ml Tube Feeding 480 ml 480 ml Other 30 ml Output Urine Total 2250 ml 1550 ml Stool Total 300 ml 200 ml # Bowel Movements 3 Dressing: other Wound: other Drains: other Cardiovascular: RSR Respiratory: decreased breath sounds Abdomen: soft, present bowel sounds Extremities: no cyanosis, other Laboratory Tests Test 06/25/19 05:12 06/25/19 07:55 06/25/19 08:45 Sodium Level 147 MMOL/L (136-145) H Potassium Level 4.0 MMOL/L (3.5-5.1) # Chloride Level 113 MMOL/L (98-107) H Carbon Dioxide Level 18 MMOL/L (21-32) L Anion Gap 16 mmol/L (5-15) H Blood Urea Nitrogen 15 mg/dL (7-18) Creatinine 0.7 MG/DL (0.55-1.30) Estimat Glomerular Filtration Rate > 60 mL/min (>60) Glucose Level 285 MG/DL (74-106) H Uric Acid 4.9 MG/DL (2.6-7.2) Calcium Level 8.8 MG/DL (8.5-10.1) Phosphorus Level 2.6 MG/DL (2.5-4.9) Magnesium Level 1.5 MG/DL (1.8-2.4) L Total Bilirubin 0.3 MG/DL (0.2-1.0) Aspartate Amino Transf (AST/SGOT) 14 U/L (15-37) L Alanine Aminotransferase (ALT/SGPT) 10 U/L (12-78) L Alkaline Phosphatase 81 U/L (46-116) C-Reactive Protein, Quantitative 13.3 mg/dL (0.00-0.90) H Pro-B-Type Natriuretic Peptide 1588 pg/mL (0-125) H Total Protein 6.4 G/DL (6.4-8.2) Albumin 1.4 G/DL (3.4-5.0) L Globulin 5.0 g/dL Albumin/Globulin Ratio 0.3 (1.0-2.7) L White Blood Count 9.4 K/UL (4.8-10.8) # Red Blood Count 2.59 M/UL (4.70-6.10) L Hemoglobin 7.2 G/DL (14.2-18.0) #L Hematocrit 20.9 % (42.0-52.0) #L Mean Corpuscular Volume 81 FL (80-99) Mean Corpuscular Hemoglobin 27.7 PG (27.0-31.0) Mean Corpuscular Hemoglobin Concent 34.5 G/DL (32.0-36.0) Red Cell Distribution Width 14.7 % (11.6-14.8) Platelet Count 491 K/UL (150-450) H Mean Platelet Volume 5.8 FL (6.5-10.1) L Neutrophils (%) (Auto) % (45.0-75.0) Lymphocytes (%) (Auto) % (20.0-45.0) Monocytes (%) (Auto) % (1.0-10.0) Eosinophils (%) (Auto) % (0.0-3.0) Basophils (%) (Auto) % (0.0-2.0) Neutrophils % (Manual) Pending Lymphocytes % (Manual) Pending Platelet Estimate Pending Platelet Morphology Pending Arterial Blood pH 7.505 (7.350-7.450) Arterial Blood Partial Pressure CO2 20.8 mmHg (35.0-45.0) *L Arterial Blood Partial Pressure O2 89.8 mmHg (75.0-100.0) Arterial Blood HCO3 16.0 mmol/L (22.0-26.0) *L Arterial Blood Oxygen Saturation 96.6 % (95-100) Arterial Blood Base Excess -6.1 (-2-2) L Donald Test Positive Plan Problems: (1) Decubitus skin ulcer Assessment & Plan: Pt presented on admission with multiple pressure injuries and Moisture Associated Skin damage Buttocks and Bilateral groin. Both earlobes including medial canals noted to have scaly red plaques and and small lesions. Full thickness stage 3 pressure injury posterior neck under collar of trach. Base of wound has 25% slough,75% beefy red .Small amt serosanguineous exudate noted. Borders are macerated. Surrounding skin is clean and dry. Moisture Associated Skin Damage noted to bilateral groin areas,Buttocks and bilateral ischium. Skin is grossly erythematous and denuded with scattered satellite lesions. Full thickness stage 3 sacral pressure injury. Base of wound is 25% necrotic ,30 % slough ,otherwise beefy red with small amt serous exudate.Borders are macerated.(L)(L)8.5cm x (W)10cm. Periwound MASD. Full Thickness stage 3 pressure injury R trochanter. Base of wound 80% beefy red ,20% slough. Small amt serous exudate. Borders are macerated(L)3cm x (W) 3.2cm. No odor noted.Periwound MASD. Full Thickness stage 3 pressure injury R ischium. Base of wound is 25% necrotic , beefy red with scattered slough. Borders are macerated. Small amt serous exudate noted. No odor noted.(L)5.3cm x (W)3.9cm. Periwound MASD. Full thickness stage 3 pressure injury L Ischium. Base of wound is beefy red and moist. Borders are macerated. Small amt serous exudate noted.(L)4cm x (W) 3.2cm x (D)0.2cm. Both heels are pink and easily blanchable. Bilat foot drop noted. Tx.Plan: Cleanse wounds on Buttocks, sacrum, ishium, trochanter with Saline. Apply Therahoney to wounds. Apply Triad Paste periwound to cover erythematous skin. Cover with Optifoam drsgs Daily and prn. Apply Phytoplex Lotion to R and L ears daily and prn. Apply Cavilon Skin Barrier to Both heels. Cover each heel with Optifoam drsg. Change every 7 days and prn. APM/MAICOL Mattress overlay. Reposition at least every 2hours or as tolerated. Off-load heels with pillow. Place pillow between knees. (2) Feeding by G-tube Assessment & Plan: DAILY ESTIMATED NEEDS: Needs based on Critical care, wounds 73kg 22-30 kcals/kg 3888-2260 total kcals 1.25-2 g protein/kg 91-146 g total protein 25-30 mL/kg 3543-4986 total fluid mLs NUTRITION DIAGNOSIS: 1) Increased kcal/pro needs R/T wound healing as evidenced by pt admitted w/ multiple wounds, sacral, BL buttocks full thickness. 2) Swallowing difficulty R/T respiratory status as evidenced by pt trach/PEG dep for all nutritional needs. CURRENT TF: Glucerna 1.2 @40/hr ENTERAL NUTRITION RECOMMENDATIONS: Glucerna 1.5 @ 50ml/hr x 24 hrs + Prosource x1 to provide 1200ml, 1800kcal, 99g + 11g prot, 911ml free water - Rec TF change to Glucerna 1.5 to better meet est kcal and protein needs - Start @ 20ml/hr x 6 hrs, increase by 10ml every 4-6 hrs to goal rate as tolerated - HOB 30-45 degrees/ water flush per MD ADDITIONAL RECOMMENDATIONS: 1. Maintain calibrated bed scale for accurate CBW 2. Wound healing: Add Christian 1pkt BID F/up w/ WC RN osmani 3. Monitor lytes daily, replete as needed Elevated Na (150), rec increase water flushes 4. F/up w/ H&P (3) Status post tracheostomy Assessment & Plan: need to monitor trach collar closely as worsening wound keep protected as above will monitor Steve Franks Jun 25, 2019 10:00
--- NOTE | 2019-06-25 10:10 | Diagnostic Imaging Report ---
Indication: Dyspnea Technique: One view of the chest Comparison: To 04/02/2020 Findings: Bilateral interstitial and airspace disease, left greater than right, again demonstrated. Left-sided pleural effusion is again demonstrated. Tracheostomy, right subclavian central venous catheter again noted. Findings are unchanged Impression: Unchanged, over one day, findings as above.
--- NOTE | 2019-06-25 10:27 | NUR ---
NURSE NOTES: SEEN AND EXAMINED BY DR SIMMONS AND GEE FOR GI CONSULT. WILL CONTINUE TO MONITOR.
--- NOTE | 2019-06-25 10:38 | NUR ---
NURSE NOTES: INFORMED DR SANON OF THE GI CONSULT.
--- NOTE | 2019-06-25 10:40 | Pulmonolgy Critical Care Note ---
Critical Care - Asmt/Plan Problems: (1) Nosocomial pneumonia (2) Sepsis (3) Ventilator dependent (4) Chronic vegetative state (5) COPD (chronic obstructive pulmonary disease) (6) Feeding by G-tube (7) Diabetes mellitus, type II (8) Cerebral vascular disease (9) Seizure disorder (10) Chronic complete quadriplegia Respiratory: monitor respiratory rate, adjust FIO2, CXR Cardiac: continue to monitor HR/BP Renal: F/U I&O Infectious Disease: check cultures, continue antibiotics Gastrointestinal: continue feedings/current rate, other - GI evaluaiton Endocrine: monitor blood sugar, check TSH, check HgA1C Hematologic: monitor H/H Critical Care - Objective Last 24 Hour Vital Signs Date Time Temp Pulse Resp B/P (MAP) Pulse Ox O2 Delivery O2 Flow Rate FiO2 06/25/19 09:48 30 06/25/19 08:39 82 29 30 06/25/19 08:00 30 06/25/19 08:00 Mechanical Ventilator 06/25/19 08:00 99.3 73 27 114/71 (85) 99 06/25/19 07:30 72 30 30 06/25/19 07:00 69 29 118/69 (85) 100 06/25/19 06:00 74 30 117/79 (92) 100 06/25/19 05:00 71 26 30 06/25/19 05:00 75 29 118/70 (86) 100 06/25/19 04:00 98.3 79 29 110/67 (81) 98 06/25/19 04:00 76 06/25/19 04:00 Mechanical Ventilator 06/25/19 04:00 30 06/25/19 03:05 77 27 30 06/25/19 03:00 73 29 112/70 (84) 99 06/25/19 02:00 74 29 113/73 (86) 99 06/25/19 01:13 76 30 30 06/25/19 01:00 76 30 106/66 (79) 98 06/25/19 00:00 98.5 79 29 107/69 (82) 98 06/25/19 00:00 Mechanical Ventilator 06/24/19 23:00 78 30 119/77 (91) 100 06/24/19 22:58 75 28 30 06/24/19 22:00 73 29 111/72 (85) 100 06/24/19 21:00 84 29 109/67 (81) 100 06/24/19 20:39 78 30 30 06/24/19 20:00 98.7 79 28 111/71 (84) 100 06/24/19 20:00 Mechanical Ventilator 06/24/19 20:00 74 06/24/19 20:00 30 06/24/19 19:20 82 31 30 06/24/19 19:00 78 30 119/75 (90) 100 06/24/19 18:00 83 28 108/78 (88) 98 06/24/19 17:28 84 29 30 06/24/19 17:00 81 28 98/63 (75) 100 06/24/19 16:00 82 06/24/19 16:00 98.1 81 28 102/66 (78) 100 06/24/19 16:00 30 06/24/19 16:00 Mechanical Ventilator 06/24/19 15:00 77 28 103/65 (78) 100 06/24/19 15:00 82 29 30 06/24/19 14:00 87 29 103/64 (77) 100 06/24/19 13:26 80 27 30 06/24/19 13:00 80 30 110/74 (86) 100 06/24/19 12:00 97.9 73 31 112/69 (83) 100 06/24/19 12:00 30 06/24/19 12:00 73 06/24/19 12:00 Mechanical Ventilator 06/24/19 11:16 73 31 30 06/24/19 11:00 81 30 102/66 (78) 100 Status: obtunded HEENT: atraumatic Neck: full ROM Lungs: rales, rhonchi Heart: HR/BP stable Abdomen: soft, active bowel sounds Extremities: no C/C/E, edema Decubiti: stage Micro: Microbiology Date/Time Source Procedure Growth Status 06/23/19 18:55 Blood Blood Culture - Preliminary NO GROWTH AFTER 24 HOURS Resulted 06/23/19 18:47 Blood Blood Culture - Preliminary NO GROWTH AFTER 24 HOURS Resulted 06/23/19 13:30 Nasopharynx - Final Complete 06/23/19 13:30 Nasopharynx - Final Complete 06/23/19 13:30 Sputum Gram Stain - Final Resulted 06/23/19 13:30 Sputum Culture - Preliminary Gram Negative Bacillus 1 Resulted Accucheck: 249 Critical Care - Subjective ROS Limited/Unobtainable: No Interval Events: H/H dropped again, OB stool is positive. Condition: critical EKG Rhythm: Sinus Rhythm FI02: 30 Vent Support Breath Rate: 12 Vent Support Mode: AC Vent Tidal Volume: 500 Sputum Amount: Small PEEP: 5.0 PIP: 23 Tube Feeding Amount: 40 I&O: Intake and Output 06/24/19 06/25/19 19:00 07:00 Intake Total 2585 ml 2240 ml Output Total 2550 ml 1750 ml Balance 35 ml 490 ml Intake Free Water 90 ml 60 ml IV Total 2015 ml 1670 ml Tube Feeding 480 ml 480 ml Other 30 ml Output Urine Total 2250 ml 1550 ml Stool Total 300 ml 200 ml # Bowel Movements 3 Labs: Laboratory Tests Test 06/25/19 05:12 06/25/19 07:55 06/25/19 08:45 Sodium Level 147 MMOL/L (136-145) H Potassium Level 4.0 MMOL/L (3.5-5.1) # Chloride Level 113 MMOL/L (98-107) H Carbon Dioxide Level 18 MMOL/L (21-32) L Anion Gap 16 mmol/L (5-15) H Blood Urea Nitrogen 15 mg/dL (7-18) Creatinine 0.7 MG/DL (0.55-1.30) Estimat Glomerular Filtration Rate > 60 mL/min (>60) Glucose Level 285 MG/DL (74-106) H Uric Acid 4.9 MG/DL (2.6-7.2) Calcium Level 8.8 MG/DL (8.5-10.1) Phosphorus Level 2.6 MG/DL (2.5-4.9) Magnesium Level 1.5 MG/DL (1.8-2.4) L Total Bilirubin 0.3 MG/DL (0.2-1.0) Aspartate Amino Transf (AST/SGOT) 14 U/L (15-37) L Alanine Aminotransferase (ALT/SGPT) 10 U/L (12-78) L Alkaline Phosphatase 81 U/L (46-116) C-Reactive Protein, Quantitative 13.3 mg/dL (0.00-0.90) H Pro-B-Type Natriuretic Peptide 1588 pg/mL (0-125) H Total Protein 6.4 G/DL (6.4-8.2) Albumin 1.4 G/DL (3.4-5.0) L Globulin 5.0 g/dL Albumin/Globulin Ratio 0.3 (1.0-2.7) L White Blood Count 9.4 K/UL (4.8-10.8) # Red Blood Count 2.59 M/UL (4.70-6.10) L Hemoglobin 7.2 G/DL (14.2-18.0) #L Hematocrit 20.9 % (42.0-52.0) #L Mean Corpuscular Volume 81 FL (80-99) Mean Corpuscular Hemoglobin 27.7 PG (27.0-31.0) Mean Corpuscular Hemoglobin Concent 34.5 G/DL (32.0-36.0) Red Cell Distribution Width 14.7 % (11.6-14.8) Platelet Count 491 K/UL (150-450) H Mean Platelet Volume 5.8 FL (6.5-10.1) L Neutrophils (%) (Auto) % (45.0-75.0) Lymphocytes (%) (Auto) % (20.0-45.0) Monocytes (%) (Auto) % (1.0-10.0) Eosinophils (%) (Auto) % (0.0-3.0) Basophils (%) (Auto) % (0.0-2.0) Differential Total Cells Counted 100 Neutrophils % (Manual) 72 % (45-75) Lymphocytes % (Manual) 19 % (20-45) L Monocytes % (Manual) 7 % (1-10) Eosinophils % (Manual) 2 % (0-3) Basophils % (Manual) 0 % (0-2) Band Neutrophils 0 % (0-8) Platelet Estimate Adequate Platelet Morphology Normal Hypochromasia 1+ Anisocytosis 1+ Microcytosis 1+ Arterial Blood pH 7.505 (7.350-7.450) Arterial Blood Partial Pressure CO2 20.8 mmHg (35.0-45.0) *L Arterial Blood Partial Pressure O2 89.8 mmHg (75.0-100.0) Arterial Blood HCO3 16.0 mmol/L (22.0-26.0) *L Arterial Blood Oxygen Saturation 96.6 % (95-100) Arterial Blood Base Excess -6.1 (-2-2) L Donald Test Positive Zarrabi,Mirali MD Jun 25, 2019 10:40
--- NOTE | 2019-06-25 11:10 | Nephrology Progress Note ---
Assessment/Plan Problem List: (1) Metabolic acidosis (2) Acute blood loss anemia (3) Hypokalemia (4) Chronic respiratory failure Assessment Metabolic Acidosis HypoKalemia HyperNatremia Severe Anemia Other Conditions: (1) Nosocomial pneumonia (2) Sepsis (3) Ventilator dependent (4) Chronic vegetative state (5) COPD (chronic obstructive pulmonary disease) (6) Feeding by G-tube (7) Diabetes mellitus, type II (8) Cerebral vascular disease (9) Seizure disorder (10) Chronic complete quadriplegia Plan Hgb down again- ? Transfusion K supplement as needed Bicitra GT D5W IV fluid Protonix IV watch H&H Transfusion as needed per orders Subjective ROS Limited/Unobtainable: Yes Objective Objective Last 24 Hour Vital Signs Date Time Temp Pulse Resp B/P (MAP) Pulse Ox O2 Delivery O2 Flow Rate FiO2 06/25/19 10:56 77 34 30 06/25/19 10:00 77 33 118/71 (87) 100 06/25/19 09:48 30 06/25/19 08:39 82 29 30 06/25/19 08:00 30 06/25/19 08:00 Mechanical Ventilator 06/25/19 08:00 99.3 73 27 114/71 (85) 99 06/25/19 07:30 72 30 30 06/25/19 07:00 69 29 118/69 (85) 100 06/25/19 06:00 74 30 117/79 (92) 100 06/25/19 05:00 71 26 30 06/25/19 05:00 75 29 118/70 (86) 100 06/25/19 04:00 98.3 79 29 110/67 (81) 98 06/25/19 04:00 76 06/25/19 04:00 Mechanical Ventilator 06/25/19 04:00 30 06/25/19 03:05 77 27 30 06/25/19 03:00 73 29 112/70 (84) 99 06/25/19 02:00 74 29 113/73 (86) 99 06/25/19 01:13 76 30 30 06/25/19 01:00 76 30 106/66 (79) 98 06/25/19 00:00 98.5 79 29 107/69 (82) 98 06/25/19 00:00 Mechanical Ventilator 06/24/19 23:00 78 30 119/77 (91) 100 06/24/19 22:58 75 28 30 06/24/19 22:00 73 29 111/72 (85) 100 06/24/19 21:00 84 29 109/67 (81) 100 06/24/19 20:39 78 30 30 06/24/19 20:00 98.7 79 28 111/71 (84) 100 06/24/19 20:00 Mechanical Ventilator 06/24/19 20:00 74 06/24/19 20:00 30 06/24/19 19:20 82 31 30 06/24/19 19:00 78 30 119/75 (90) 100 06/24/19 18:00 83 28 108/78 (88) 98 06/24/19 17:28 84 29 30 06/24/19 17:00 81 28 98/63 (75) 100 06/24/19 16:00 82 06/24/19 16:00 98.1 81 28 102/66 (78) 100 06/24/19 16:00 30 06/24/19 16:00 Mechanical Ventilator 06/24/19 15:00 77 28 103/65 (78) 100 06/24/19 15:00 82 29 30 06/24/19 14:00 87 29 103/64 (77) 100 06/24/19 13:26 80 27 30 06/24/19 13:00 80 30 110/74 (86) 100 06/24/19 12:00 97.9 73 31 112/69 (83) 100 06/24/19 12:00 30 06/24/19 12:00 73 06/24/19 12:00 Mechanical Ventilator 06/24/19 11:16 73 31 30 Intake and Output 06/24/19 06/25/19 19:00 07:00 Intake Total 2585 ml 2240 ml Output Total 2550 ml 1750 ml Balance 35 ml 490 ml Intake Free Water 90 ml 60 ml IV Total 2015 ml 1670 ml Tube Feeding 480 ml 480 ml Other 30 ml Output Urine Total 2250 ml 1550 ml Stool Total 300 ml 200 ml # Bowel Movements 3 Current Medications Medications (Trade) Dose Ordered Sig/Tony Route PRN Reason Start Time Stop Time Status Last Admin Dose Admin Acetaminophen (Tylenol) 650 mg Q4H PRN GT Mild Pain/Temp > 100.5 06/22/19 01:00 07/22/19 00:59 06/23/19 16:14 Albuterol Sulfate (Proventil) 2.5 mg Q6HRT PRN HHN Bronchospasm 06/21/19 22:00 06/26/19 21:59 Chlorhexidine Gluconate (Kay-Hex 2%) 1 applic DAILY@2000 TOPIC 06/22/19 20:00 07/22/19 19:59 06/24/19 20:57 Dextrose 1,000 ml @ 50 mls/hr Q20H IV 06/25/19 09:00 07/25/19 08:59 06/25/19 09:35 Dextrose (Dextrose 50%) 25 ml Q30M PRN IV Hypoglycemia 06/21/19 22:00 07/21/19 21:59 Dextrose (Dextrose 50%) 50 ml Q30M PRN IV Hypoglycemia 06/21/19 22:00 07/21/19 21:59 Insulin Aspart (NovoLOG) Q6HR SUBQ 06/22/19 00:00 07/22/19 00:00 06/25/19 05:54 Iron Sucrose 100 mg/Sodium Chloride 60 ml @ 240 mls/hr BEDTIME IV 06/24/19 21:00 06/28/19 21:14 06/24/19 20:58 Levetiracetam (Keppra) 500 mg Q12HR GT 06/22/19 09:00 07/22/19 08:59 06/25/19 08:47 Linezolid 300 ml @ 300 mls/hr Q12HR IVPB 06/23/19 13:00 06/30/19 12:59 06/25/19 08:48 Magnesium Sulfate 100 ml @ 100 mls/hr Q1H IVPB 06/25/19 09:00 06/25/19 12:59 06/25/19 10:42 Meropenem 1 gm/ Sodium Chloride 55 ml @ 110 mls/hr Q8HR IVPB 06/24/19 14:00 06/29/19 13:59 06/25/19 05:51 Norepinephrine Bitartrate 4 mg/ Dextrose 250 ml @ 0 mls/hr Q24H PRN IV For hypotension 06/21/19 22:00 07/21/19 21:59 Pantoprazole (Protonix) 40 mg Q12HR IVP 06/23/19 21:00 07/22/19 06:29 06/25/19 08:47 Polyethylene Glycol (Miralax) 17 gm PRN PRN GT Constipation 06/21/19 22:00 07/21/19 21:59 Sodium Citrate (Bicitra) 45 ml EVERY 6 HOURS ORAL 06/23/19 14:15 07/23/19 14:14 06/25/19 05:51 Laboratory Tests 06/25/19 05:12: Sodium Level 147H, Potassium Level 4.0#, Chloride Level 113H, Carbon Dioxide Level 18L, Anion Gap 16H, Blood Urea Nitrogen 15, Creatinine 0.7, Estimat Glomerular Filtration Rate > 60, Glucose Level 285H, Uric Acid 4.9, Calcium Level 8.8, Phosphorus Level 2.6, Magnesium Level 1.5L, Total Bilirubin 0.3, Aspartate Amino Transf (AST/SGOT) 14L, Alanine Aminotransferase (ALT/SGPT) 10L, Alkaline Phosphatase 81, C-Reactive Protein, Quantitative 13.3H, Pro-B-Type Natriuretic Peptide 1588H, Total Protein 6.4, Albumin 1.4L, Globulin 5.0, Albumin/Globulin Ratio 0.3L 06/25/19 07:55: White Blood Count 9.4#, Red Blood Count 2.59L, Hemoglobin 7.2#L, Hematocrit 20.9 #L, Mean Corpuscular Volume 81, Mean Corpuscular Hemoglobin 27.7, Mean Corpuscular Hemoglobin Concent 34.5, Red Cell Distribution Width 14.7, Platelet Count 491H, Mean Platelet Volume 5.8L, Neutrophils (%) (Auto) , Lymphocytes (%) (Auto) , Monocytes (%) (Auto) , Eosinophils (%) (Auto) , Basophils (%) (Auto) , Differential Total Cells Counted 100, Neutrophils % (Manual) 72, Lymphocytes % ( Manual) 19L, Monocytes % (Manual) 7, Eosinophils % (Manual) 2, Basophils % ( Manual) 0, Band Neutrophils 0, Platelet Estimate Adequate, Platelet Morphology Normal, Hypochromasia 1+, Anisocytosis 1+, Microcytosis 1+ 06/25/19 08:45: Arterial Blood pH 7.505H, Arterial Blood Partial Pressure CO2 20.8*L, Arterial Blood Partial Pressure O2 89.8, Arterial Blood HCO3 16.0*L, Arterial Blood Oxygen Saturation 96.6, Arterial Blood Base Excess -6.1L, Donald Test Positive Height (Feet): 5 Height (Inches): 7.00 Weight (Pounds): 164 General Appearance: lethargic EENT: other - trach-vent Cardiovascular: normal rate Respiratory/Chest: decreased breath sounds Abdomen: distended Ricky Green MD Jun 25, 2019 11:10
--- NOTE | 2019-06-25 11:14 | Hematology/Onc Progress Note ---
Assessment/Plan Assessment/Plan ASSESSMENT AND RECOMMENDATIONS: # Anemia due to chronic disease v gi bleed, hgb downtrending since admission --> last time I saw this patient, hgb was 13.1, this was back in 2018 --> hgb trend 9-->8.1-->6.9-->12-->7.2 --> 2 units prbc for 06/24, 06/25 --> iv iron x 5 days given, low sat and ferritin relative to inflammatory process # Coagulopathy is likely due to dic --> vit k as as need, ffp as well --> if worsening coagulopathy and bleeding given ffp --> at this time treatment of underlying process # Leukocytosis is likely related to underyling Pna --> has been started on abx --> now IMPROVEd # PNA with infiltrates --> with sepsis poa, is on broad spectrum abx --> on pressors in icu on adm # Chronic cholecystitis s/p cholecystostomy tube in the past # Chronic resp failure vent/trach dependant # Asthma/COPD # HTN # Dm2 # Dementia # CVA s/p vegetative state # Dysphagia s/p G-tube --> replace as per gi # seizure disorder # SNF resident GREATLY APPRECIATE CONSULTATION. Subjective HEENT: Denies: no symptoms, eye pain, blurred vision, tearing, double vision, ear pain, ear discharge, nose pain, nose congestion, throat pain, throat swelling, mouth pain, mouth swelling, other Cardiovascular: Denies: no symptoms, chest pain, edema, irregular heart rate, lightheadedness, palpitations, syncope, other Respiratory: Denies: no symptoms, cough, shortness of breath, SOB with excertion, SOB at rest, sputum, wheezing, other Gastrointestinal/Abdominal: Denies: no symptoms, abdomen distended, abdominal pain, black stools, tarry stools, blood in stool, constipated, diarrhea, difficulty swallowing, nausea, poor appetite, poor fluid intake, rectal bleeding , vomiting, other Neurologic/Psychiatric: Denies: no symptoms, anxiety, depressed, emotional problems, headache, numbness, paresthesia, pre-existing deficit, seizure, tingling, tremors, weakness, other Endocrine: Denies: no symptoms, excessive sweating, flushing, intolerance to cold, intolerance to heat, increased hunger, increased thirst, increased urine, unexplained weight gain, unexplained weight loss, other Hematologic/Lymphatic: Denies: no symptoms, anemia, easy bleeding, easy bruising, adenopathy, other Allergies: Coded Allergies: NO KNOWN DRUG ALLERGIES (Unverified Allergy, Unknown, 06/28/15) Subjective 06/25: no major changes, labs noted, hgb lower, dw MANUEL [place], needs blood, also gi consulted, in icu Objective Objective Current Medications Medications (Trade) Dose Ordered Sig/Tony Route PRN Reason Start Time Stop Time Status Last Admin Dose Admin Acetaminophen (Tylenol) 650 mg Q4H PRN GT Mild Pain/Temp > 100.5 06/22/19 01:00 07/22/19 00:59 06/23/19 16:14 Albuterol Sulfate (Proventil) 2.5 mg Q6HRT PRN HHN Bronchospasm 06/21/19 22:00 06/26/19 21:59 Chlorhexidine Gluconate (Kay-Hex 2%) 1 applic DAILY@2000 TOPIC 06/22/19 20:00 07/22/19 19:59 06/24/19 20:57 Dextrose 1,000 ml @ 50 mls/hr Q20H IV 06/25/19 09:00 07/25/19 08:59 06/25/19 09:35 Dextrose (Dextrose 50%) 25 ml Q30M PRN IV Hypoglycemia 06/21/19 22:00 07/21/19 21:59 Dextrose (Dextrose 50%) 50 ml Q30M PRN IV Hypoglycemia 06/21/19 22:00 07/21/19 21:59 Insulin Aspart (NovoLOG) Q6HR SUBQ 06/22/19 00:00 07/22/19 00:00 06/25/19 05:54 Iron Sucrose 100 mg/Sodium Chloride 60 ml @ 240 mls/hr BEDTIME IV 06/24/19 21:00 06/28/19 21:14 06/24/19 20:58 Levetiracetam (Keppra) 500 mg Q12HR GT 06/22/19 09:00 07/22/19 08:59 06/25/19 08:47 Linezolid 300 ml @ 300 mls/hr Q12HR IVPB 06/23/19 13:00 06/30/19 12:59 06/25/19 08:48 Magnesium Sulfate 100 ml @ 100 mls/hr Q1H IVPB 06/25/19 09:00 06/25/19 12:59 06/25/19 10:42 Meropenem 1 gm/ Sodium Chloride 55 ml @ 110 mls/hr Q8HR IVPB 06/24/19 14:00 06/29/19 13:59 06/25/19 05:51 Norepinephrine Bitartrate 4 mg/ Dextrose 250 ml @ 0 mls/hr Q24H PRN IV For hypotension 06/21/19 22:00 07/21/19 21:59 Pantoprazole (Protonix) 40 mg Q12HR IVP 06/23/19 21:00 07/22/19 06:29 06/25/19 08:47 Polyethylene Glycol (Miralax) 17 gm PRN PRN GT Constipation 06/21/19 22:00 07/21/19 21:59 Sodium Citrate (Bicitra) 45 ml EVERY 6 HOURS ORAL 06/23/19 14:15 07/23/19 14:14 06/25/19 05:51 Last 24 Hour Vital Signs Date Time Temp Pulse Resp B/P (MAP) Pulse Ox O2 Delivery O2 Flow Rate FiO2 06/25/19 10:56 77 34 30 06/25/19 10:00 77 33 118/71 (87) 100 06/25/19 09:48 30 06/25/19 08:39 82 29 30 06/25/19 08:00 30 06/25/19 08:00 Mechanical Ventilator 06/25/19 08:00 99.3 73 27 114/71 (85) 99 06/25/19 07:30 72 30 30 06/25/19 07:00 69 29 118/69 (85) 100 06/25/19 06:00 74 30 117/79 (92) 100 06/25/19 05:00 71 26 30 06/25/19 05:00 75 29 118/70 (86) 100 06/25/19 04:00 98.3 79 29 110/67 (81) 98 06/25/19 04:00 76 06/25/19 04:00 Mechanical Ventilator 06/25/19 04:00 30 06/25/19 03:05 77 27 30 06/25/19 03:00 73 29 112/70 (84) 99 06/25/19 02:00 74 29 113/73 (86) 99 06/25/19 01:13 76 30 30 06/25/19 01:00 76 30 106/66 (79) 98 06/25/19 00:00 98.5 79 29 107/69 (82) 98 06/25/19 00:00 Mechanical Ventilator 06/24/19 23:00 78 30 119/77 (91) 100 06/24/19 22:58 75 28 30 06/24/19 22:00 73 29 111/72 (85) 100 06/24/19 21:00 84 29 109/67 (81) 100 06/24/19 20:39 78 30 30 06/24/19 20:00 98.7 79 28 111/71 (84) 100 06/24/19 20:00 Mechanical Ventilator 06/24/19 20:00 74 06/24/19 20:00 30 06/24/19 19:20 82 31 30 06/24/19 19:00 78 30 119/75 (90) 100 06/24/19 18:00 83 28 108/78 (88) 98 06/24/19 17:28 84 29 30 06/24/19 17:00 81 28 98/63 (75) 100 06/24/19 16:00 82 06/24/19 16:00 98.1 81 28 102/66 (78) 100 06/24/19 16:00 30 06/24/19 16:00 Mechanical Ventilator 06/24/19 15:00 77 28 103/65 (78) 100 06/24/19 15:00 82 29 30 06/24/19 14:00 87 29 103/64 (77) 100 06/24/19 13:26 80 27 30 06/24/19 13:00 80 30 110/74 (86) 100 06/24/19 12:00 97.9 73 31 112/69 (83) 100 06/24/19 12:00 30 06/24/19 12:00 73 06/24/19 12:00 Mechanical Ventilator 06/24/19 11:16 73 31 30 06/24/19 11:00 81 30 102/66 (78) 100 06/24/19 10:00 80 30 96/63 (74) 100 06/24/19 09:01 84 32 30 06/24/19 09:00 84 30 103/66 (78) 100 2/11/20 08:00 79 06/24/19 08:00 Mechanical Ventilator 06/24/19 08:00 30 06/24/19 08:00 98.8 79 27 112/70 (84) 100 06/24/19 07:06 81 32 30 06/24/19 07:00 81 29 113/73 (86) 100 06/24/19 06:00 99.2 83 30 121/84 (96) 100 06/24/19 05:16 78 30 30 06/24/19 05:00 80 31 115/72 (86) 100 06/24/19 04:00 30 06/24/19 04:00 83 29 108/64 (79) 98 06/24/19 04:00 Mechanical Ventilator 06/24/19 04:00 80 06/24/19 03:00 99.7 89 31 128/68 (88) 100 06/24/19 02:45 81 30 30 06/24/19 02:00 81 30 100 06/24/19 02:00 81 30 114/69 (84) 100 06/24/19 01:00 79 30 114/64 (81) 100 06/24/19 00:50 78 30 30 06/24/19 00:00 91 06/24/19 00:00 Mechanical Ventilator 06/24/19 00:00 99.7 84 31 115/58 (77) 100 06/23/19 23:12 86 31 30 06/23/19 22:30 99.7 83 31 116/66 (83) 100 06/23/19 22:00 89 32 115/65 (82) 100 06/23/19 21:24 82 31 30 06/23/19 21:00 100.5 81 30 115/66 (82) 100 06/23/19 20:00 89 06/23/19 20:00 30 06/23/19 20:00 Mechanical Ventilator 06/23/19 20:00 99.6 85 31 114/63 (80) 100 06/23/19 19:29 86 31 30 06/23/19 19:00 88 29 112/61 (78) 100 06/23/19 18:00 85 30 112/61 (78) 100 06/23/19 17:11 96 32 30 06/23/19 17:00 91 32 115/47 (69) 100 06/23/19 16:44 99.2 06/23/19 16:00 98.8 90 32 110/62 (78) 100 06/23/19 16:00 30 06/23/19 16:00 Mechanical Ventilator 06/23/19 16:00 84 06/23/19 15:00 88 31 109/60 (76) 100 06/23/19 14:40 90 31 30 06/23/19 14:00 92 32 118/66 (83) 100 06/23/19 13:20 94 32 30 06/23/19 13:00 89 33 116/63 (80) 100 06/23/19 12:00 98.6 91 31 111/66 (81) 100 06/23/19 12:00 Mechanical Ventilator 06/23/19 12:00 91 06/23/19 12:00 30 06/23/19 11:20 92 36 30 Intake and Output 06/24/19 06/25/19 19:00 07:00 Intake Total 2585 ml 2240 ml Output Total 2550 ml 1750 ml Balance 35 ml 490 ml Intake Free Water 90 ml 60 ml IV Total 2015 ml 1670 ml Tube Feeding 480 ml 480 ml Other 30 ml Output Urine Total 2250 ml 1550 ml Stool Total 300 ml 200 ml # Bowel Movements 3 Labs Test 06/22/19 18:45 06/23/19 04:00 06/23/19 09:15 06/23/19 13:18 Iron Level 6 ug/dL (50-175) Total Iron Binding Capacity 148 ug/dL (250-450) Percent Iron Saturation 4 % (15-50) Unsaturated Iron Binding 142 ug/dL (112-346) Ferritin 92 NG/ML (8-388) White Blood Count 9.4 K/UL (4.8-10.8) Red Blood Count 2.66 M/UL (4.70-6.10) Hemoglobin 6.9 G/DL (14.2-18.0) Hematocrit 21.5 % (42.0-52.0) Mean Corpuscular Volume 81 FL (80-99) Mean Corpuscular Hemoglobin 26.1 PG (27.0-31.0) Mean Corpuscular Hemoglobin Concent 32.4 G/DL (32.0-36.0) Red Cell Distribution Width 16.0 % (11.6-14.8) Platelet Count 385 K/UL (150-450) Mean Platelet Volume 6.1 FL (6.5-10.1) Neutrophils (%) (Auto) % (45.0-75.0) Lymphocytes (%) (Auto) % (20.0-45.0) Monocytes (%) (Auto) % (1.0-10.0) Eosinophils (%) (Auto) % (0.0-3.0) Basophils (%) (Auto) % (0.0-2.0) Differential Total Cells Counted 100 Neutrophils % (Manual) 77 % (45-75) Lymphocytes % (Manual) 10 % (20-45) Monocytes % (Manual) 13 % (1-10) Eosinophils % (Manual) 0 % (0-3) Basophils % (Manual) 0 % (0-2) Band Neutrophils 0 % (0-8) Platelet Estimate Adequate Platelet Morphology Normal Hypochromasia 1+ Anisocytosis 1+ Microcytosis 1+ Sodium Level 150 MMOL/L (136-145) Potassium Level 2.5 MMOL/L (3.5-5.1) Chloride Level 120 MMOL/L (98-107) Carbon Dioxide Level 11 MMOL/L (21-32) Anion Gap 19 mmol/L (5-15) Blood Urea Nitrogen 16 mg/dL (7-18) Creatinine 0.7 MG/DL (0.55-1.30) Estimat Glomerular Filtration Rate > 60 mL/min (>60) Glucose Level 142 MG/DL (74-106) Calcium Level 9.6 MG/DL (8.5-10.1) Arterial Blood pH 7.326 (7.350-7.450) Arterial Blood Partial Pressure CO2 22.0 mmHg (35.0-45.0) Arterial Blood Partial Pressure O2 110.8 mmHg (75.0-100.0) Arterial Blood HCO3 11.2 mmol/L (22.0-26.0) Arterial Blood Oxygen Saturation 98.4 % (95-100) Arterial Blood Base Excess -13.6 (-2-2) Donald Test Positive Stool Occult Blood Positive (NEGATIVE) Test 06/23/19 18:47 06/23/19 20:10 06/24/19 05:58 06/24/19 08:45 Uric Acid 4.4 MG/DL (2.6-7.2) 4.4 MG/DL (2.6-7.2) Phosphorus Level 1.8 MG/DL (2.5-4.9) 3.1 MG/DL (2.5-4.9) Magnesium Level 1.5 MG/DL (1.8-2.4) 2.1 MG/DL (1.8-2.4) Total Bilirubin 0.3 MG/DL (0.2-1.0) 0.3 MG/DL (0.2-1.0) Direct Bilirubin < 0.1 MG/DL (0.0-0.3) Aspartate Amino Transf (AST/SGOT) 10 U/L (15-37) 13 U/L (15-37) Alanine Aminotransferase (ALT/SGPT) 9 U/L (12-78) 10 U/L (12-78) Alkaline Phosphatase 79 U/L (46-116) 84 U/L (46-116) Total Protein 6.1 G/DL (6.4-8.2) 6.5 G/DL (6.4-8.2) Albumin 1.4 G/DL (3.4-5.0) 1.4 G/DL (3.4-5.0) Vitamin B12 Level 1227 PG/ML (193-986) Folate 18.1 NG/ML (8.6-58.9) Acetone Level Negative (NEGATIVE) Lactic Acid Level 1.70 mmol/L (0.4-2.0) 1.80 mmol/L (0.4-2.0) White Blood Count 5.9 K/UL (4.8-10.8) Red Blood Count 4.61 M/UL (4.70-6.10) Hemoglobin 12.5 G/DL (14.2-18.0) Hematocrit 37.4 % (42.0-52.0) Mean Corpuscular Volume 81 FL (80-99) Mean Corpuscular Hemoglobin 27.1 PG (27.0-31.0) Mean Corpuscular Hemoglobin Concent 33.4 G/DL (32.0-36.0) Red Cell Distribution Width 15.1 % (11.6-14.8) Platelet Count 438 K/UL (150-450) Mean Platelet Volume 6.0 FL (6.5-10.1) Neutrophils (%) (Auto) 82.5 % (45.0-75.0) Lymphocytes (%) (Auto) 8.3 % (20.0-45.0) Monocytes (%) (Auto) 7.4 % (1.0-10.0) Eosinophils (%) (Auto) 1.4 % (0.0-3.0) Basophils (%) (Auto) 0.4 % (0.0-2.0) Sodium Level 152 MMOL/L (136-145) Potassium Level 2.5 MMOL/L (3.5-5.1) Chloride Level 118 MMOL/L (98-107) Carbon Dioxide Level 14 MMOL/L (21-32) Anion Gap 20 mmol/L (5-15) Blood Urea Nitrogen 15 mg/dL (7-18) Creatinine 0.7 MG/DL (0.55-1.30) Estimat Glomerular Filtration Rate > 60 mL/min (>60) Glucose Level 263 MG/DL (74-106) Calcium Level 9.5 MG/DL (8.5-10.1) Gamma Glutamyl Transpeptidase 64 U/L (5-85) Troponin I 0.013 ng/mL (0.000-0.056) C-Reactive Protein, Quantitative 23.9 mg/dL (0.00-0.90) Pro-B-Type Natriuretic Peptide 2898 pg/mL (0-125) Globulin 5.1 g/dL Albumin/Globulin Ratio 0.3 (1.0-2.7) Triglycerides Level 153 MG/DL (30-150) Cholesterol Level 68 MG/DL (< 200) LDL Cholesterol 42 mg/dL (<100) HDL Cholesterol 7 MG/DL (40-60) Cholesterol/HDL Ratio 9.7 (3.3-4.4) Lipase > 2000 U/L (73-393) Thyroid Stimulating Hormone (TSH) 0.234 uiU/mL (0.358-3.740) Random Amikacin Level 6.9 MG/L Arterial Blood pH 7.426 (7.350-7.450) Arterial Blood Partial Pressure CO2 21.8 mmHg (35.0-45.0) Arterial Blood Partial Pressure O2 87.4 mmHg (75.0-100.0) Arterial Blood HCO3 14.0 mmol/L (22.0-26.0) Arterial Blood Oxygen Saturation 96.6 % (95-100) Arterial Blood Base Excess -9.2 (-2-2) Donald Test Positive Test 06/25/19 05:12 06/25/19 07:55 06/25/19 08:45 Sodium Level 147 MMOL/L (136-145) Potassium Level 4.0 MMOL/L (3.5-5.1) Chloride Level 113 MMOL/L (98-107) Carbon Dioxide Level 18 MMOL/L (21-32) Anion Gap 16 mmol/L (5-15) Blood Urea Nitrogen 15 mg/dL (7-18) Creatinine 0.7 MG/DL (0.55-1.30) Estimat Glomerular Filtration Rate > 60 mL/min (>60) Glucose Level 285 MG/DL (74-106) Uric Acid 4.9 MG/DL (2.6-7.2) Calcium Level 8.8 MG/DL (8.5-10.1) Phosphorus Level 2.6 MG/DL (2.5-4.9) Magnesium Level 1.5 MG/DL (1.8-2.4) Total Bilirubin 0.3 MG/DL (0.2-1.0) Aspartate Amino Transf (AST/SGOT) 14 U/L (15-37) Alanine Aminotransferase (ALT/SGPT) 10 U/L (12-78) Alkaline Phosphatase 81 U/L (46-116) C-Reactive Protein, Quantitative 13.3 mg/dL (0.00-0.90) Pro-B-Type Natriuretic Peptide 1588 pg/mL (0-125) Total Protein 6.4 G/DL (6.4-8.2) Albumin 1.4 G/DL (3.4-5.0) Globulin 5.0 g/dL Albumin/Globulin Ratio 0.3 (1.0-2.7) White Blood Count 9.4 K/UL (4.8-10.8) Red Blood Count 2.59 M/UL (4.70-6.10) Hemoglobin 7.2 G/DL (14.2-18.0) Hematocrit 20.9 % (42.0-52.0) Mean Corpuscular Volume 81 FL (80-99) Mean Corpuscular Hemoglobin 27.7 PG (27.0-31.0) Mean Corpuscular Hemoglobin Concent 34.5 G/DL (32.0-36.0) Red Cell Distribution Width 14.7 % (11.6-14.8) Platelet Count 491 K/UL (150-450) Mean Platelet Volume 5.8 FL (6.5-10.1) Neutrophils (%) (Auto) % (45.0-75.0) Lymphocytes (%) (Auto) % (20.0-45.0) Monocytes (%) (Auto) % (1.0-10.0) Eosinophils (%) (Auto) % (0.0-3.0) Basophils (%) (Auto) % (0.0-2.0) Differential Total Cells Counted 100 Neutrophils % (Manual) 72 % (45-75) Lymphocytes % (Manual) 19 % (20-45) Monocytes % (Manual) 7 % (1-10) Eosinophils % (Manual) 2 % (0-3) Basophils % (Manual) 0 % (0-2) Band Neutrophils 0 % (0-8) Platelet Estimate Adequate Platelet Morphology Normal Hypochromasia 1+ Anisocytosis 1+ Microcytosis 1+ Arterial Blood pH 7.505 (7.350-7.450) Arterial Blood Partial Pressure CO2 20.8 mmHg (35.0-45.0) Arterial Blood Partial Pressure O2 89.8 mmHg (75.0-100.0) Arterial Blood HCO3 16.0 mmol/L (22.0-26.0) Arterial Blood Oxygen Saturation 96.6 % (95-100) Arterial Blood Base Excess -6.1 (-2-2) Donald Test Positive Height (Feet): 5 Height (Inches): 7.00 Weight (Pounds): 164 Objective Physical Exam HEENT: normocephalic, bilateral eye PERRL Neck: normal inspection, supple, tracheotomy - site c/d/i ++ vent Respiratory: chest non-tender, lungs clear, normal breath sounds, chest symmetrical, palpation of chest normal Cardiovascular : normal peripheral pulses, regular rate, rhythm Gastrointestinal: normal inspection, non tender, soft, no mass, no guarding, no rebound, ++ feeding tube c/d/i Genitourinary: normal inspection, no CVA tenderness Musculoskeletal: back normal, gait/station normal, normal range of motion, non- tender, no calf tenderness Neurologic: nonverbal Skin: normal color, no darrell GI: ++ byrnes Kleynberg,Manolo L. MD Jun 25, 2019 11:14
--- NOTE | 2019-06-25 12:15 | Progress Note ---
DATE: 06/24/2019 SUBJECTIVE: The patient is afebrile, hemodynamically stable. PHYSICAL EXAMINATION: VITAL SIGNS: Blood pressure 119/77, pulse is 78, respirations 17, and temperature 98.7. HEENT: Eyes were normal. ENT, mucous membranes were moist and intact. NECK: Supple with no JVD without lymph nodes. Tracheostomy site is clean. LUNGS: Clear without rhonchi, rales, or wheezing. HEART: Normal sounds with regular beats. ABDOMEN: Soft and nontender with normal bowel sounds. Gastrostomy site is clean. EXTREMITIES: Warm without cyanosis, clubbing, or edema. LABORATORY DATA: Hemoglobin 12.5, hematocrit 37.4 with MCV of 81, WBC of 5.9, and platelets . His BUN and creatinine are 15 and 0.7 respectively. His sodium is 152, potassium 2.5, chloride 118, and CO2 is . His was 4.4. His lactic acid was 1.8. His troponin was 0.003. His is more than 2000. His chest x-ray reveals has edema in his left leg. Had increase fluid. congestive heart failure. BNP, 2D echo to assist in the management of this case . The patient will be started on 500 mg twice a day and . Repeat laboratory tests will be done in the a.m. including BNP. Liset Wallace M.D. DR: CAROLINA JOB#: [id number] CC:
--- NOTE | 2019-06-25 12:30 | NUR ---
NURSE NOTES: SACRAL WOUND DRESSING DONE. STILL NOTED LOOSE STOOL. NO SIGNS OF DISTRESS OF THE MOMENT. WILL CONTINUE TO MONITOR.
[2019-06-25] MEDS ORDERED: Tubing IV Secondary IV ONE (13:49)
[2019-06-25] MEDS ORDERED: NS 275ml ONE (13:49)
--- NOTE | 2019-06-25 14:02 | NUR ---
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 99.3 HR 73 RR 30 B/P 114/71 AC 12 TV 500 FIO2 30% PEEP 5 H/H 7.2/20.9 NA 147 MG 1.5 BNP 1588 IS: IVF D5@ 50ML/HR IRON IV PROTONIX IV ZOSYN IV ICU STATUS
--- NOTE | 2019-06-25 14:45 | NUR ---
NURSE NOTES: TURNED AND REPOSITIONED PATIENT. TOLERATING TUBE FEEDING AND CURRENT VENT SETTINGS. WILL CONTINUE TO MONITOR.
--- NOTE | 2019-06-25 16:34 | Infectious Diseases Prog Note ---
Assessment/Plan Assessment/Plan Assessment: Severe Sepsis ESBL E.coli UTI c/w bacteremia Multifocal PNA -06/25 CXR: Bilateral interstitial and airspace disease, left greater than right, again demonstrated. Left-sided pleural effusion is again demonstrated -sp cx GNR -u/a wbc tnct, nit neg, leuk +3; ucx >100k ESBL E.coli (S Zosyn, Imi, Amikacin) -06/21 Bcx 06/17 ESBL E.coli (S Zosyn, Imi, Amikacin); 06/23 Bcx p -06/21 CXR:.New bilateral patchy airspace opacities in the left midlung an as well as the right upper lung concerning for multifocal pneumonia. Similar retrocardiac atelectasis or consolidation. -influenza sc neg Severe anion gap metabolic acidosis - ?etiology- normal lactic acid, normal Cr- BG levels between 119-170s- r/o DKA vs other HTN asthma COPD persistent vegetative state CVA Dm2 chronic respiratory failure s/p trach/vent dependent Dysphagia s/p GT NH resident Plan: -Continue Meropenem #2 (abx d #3) for ESBL UTI and bacteremia -D/c empiric IV Linezolid #3 -06/24 SP Tamiflu #2, IV amikacin #2, Cefepime #3 -2 SP flagyl #3 -2/ SP Ertapenem x1 -06/21 SP Zosyn x1 -f/u cx -Monitor CBC/CMP, temperatures -f/u Bcx x2, sp cx -GT/trach/ICU care -aspiration precautions -neprho f/u Thank you for this consultation. Will continue to follow along with you. Discussed with RN Subjective Allergies: Coded Allergies: NO KNOWN DRUG ALLERGIES (Unverified Allergy, Unknown, 06/28/15) Subjective afebrile >36hrs no leuckocytosis repeat Bcx NTD Objective Vital Signs Last 24 Hour Vital Signs Date Time Temp Pulse Resp B/P (MAP) Pulse Ox O2 Delivery O2 Flow Rate FiO2 06/25/19 16:00 Mechanical Ventilator 06/25/19 16:00 30 06/25/19 15:00 71 33 116/71 (86) 100 06/25/19 14:45 70 33 30 06/25/19 14:00 72 35 124/76 (92) 100 06/25/19 13:00 74 36 128/77 (94) 100 06/25/19 12:55 70 35 30 06/25/19 12:00 84 28 126/80 (95) 100 06/25/19 12:00 97.9 06/25/19 12:00 30 06/25/19 12:00 Mechanical Ventilator 06/25/19 12:00 73 06/25/19 11:00 72 34 122/68 (86) 100 06/25/19 10:56 77 34 30 06/25/19 10:00 77 33 118/71 (87) 100 06/25/19 09:48 30 06/25/19 08:39 82 29 30 06/25/19 08:00 30 06/25/19 08:00 Mechanical Ventilator 06/25/19 08:00 75 06/25/19 08:00 99.3 73 27 114/71 (85) 99 06/25/19 07:30 72 30 30 06/25/19 07:00 69 29 118/69 (85) 100 06/25/19 06:00 74 30 117/79 (92) 100 06/25/19 05:00 71 26 30 06/25/19 05:00 75 29 118/70 (86) 100 06/25/19 04:00 98.3 79 29 110/67 (81) 98 06/25/19 04:00 76 06/25/19 04:00 Mechanical Ventilator 06/25/19 04:00 30 06/25/19 03:05 77 27 30 06/25/19 03:00 73 29 112/70 (84) 99 06/25/19 02:00 74 29 113/73 (86) 99 06/25/19 01:13 76 30 30 06/25/19 01:00 76 30 106/66 (79) 98 06/25/19 00:00 98.5 79 29 107/69 (82) 98 06/25/19 00:00 Mechanical Ventilator 06/24/19 23:00 78 30 119/77 (91) 100 06/24/19 22:58 75 28 30 06/24/19 22:00 73 29 111/72 (85) 100 06/24/19 21:00 84 29 109/67 (81) 100 06/24/19 20:39 78 30 30 06/24/19 20:00 98.7 79 28 111/71 (84) 100 06/24/19 20:00 Mechanical Ventilator 06/24/19 20:00 74 06/24/19 20:00 30 06/24/19 19:20 82 31 30 06/24/19 19:00 78 30 119/75 (90) 100 06/24/19 18:00 83 28 108/78 (88) 98 06/24/19 17:28 84 29 30 06/24/19 17:00 81 28 98/63 (75) 100 Height (Feet): 5 Height (Inches): 7.00 Weight (Pounds): 164 Objective General Appearance: alert, Chronically Ill ENT: dry mucus membranes, other Neck: normal inspection, suppl limited range of motion, tracheotomy Respiratory: normal inspection, no respiratory distress, no wheezing Cardiovascular: regular rate, rhythm, no edema Gastrointestinal: normal bowel sounds, soft, no guarding, no hernia Musculoskeletal: normal range of motion, other - Bilateral upper and lower extremity motor weakness. Skin: no rash Microbiology Date/Time Source Procedure Growth Status 06/23/19 18:55 Blood Blood Culture - Preliminary NO GROWTH AFTER 24 HOURS Resulted 06/23/19 18:47 Blood Blood Culture - Preliminary NO GROWTH AFTER 24 HOURS Resulted 06/23/19 13:30 Nasopharynx - Final Complete 06/23/19 13:30 Nasopharynx - Final Complete 06/23/19 13:30 Sputum Gram Stain - Final Resulted 06/23/19 13:30 Sputum Culture - Preliminary Gram Negative Bacillus 1 Resulted Laboratory Tests Test 06/25/19 05:12 06/25/19 07:55 06/25/19 08:45 Sodium Level 147 MMOL/L (136-145) H Potassium Level 4.0 MMOL/L (3.5-5.1) # Chloride Level 113 MMOL/L (98-107) H Carbon Dioxide Level 18 MMOL/L (21-32) L Anion Gap 16 mmol/L (5-15) H Blood Urea Nitrogen 15 mg/dL (7-18) Creatinine 0.7 MG/DL (0.55-1.30) Estimat Glomerular Filtration Rate > 60 mL/min (>60) Glucose Level 285 MG/DL (74-106) H Uric Acid 4.9 MG/DL (2.6-7.2) Calcium Level 8.8 MG/DL (8.5-10.1) Phosphorus Level 2.6 MG/DL (2.5-4.9) Magnesium Level 1.5 MG/DL (1.8-2.4) L Total Bilirubin 0.3 MG/DL (0.2-1.0) Aspartate Amino Transf (AST/SGOT) 14 U/L (15-37) L Alanine Aminotransferase (ALT/SGPT) 10 U/L (12-78) L Alkaline Phosphatase 81 U/L (46-116) C-Reactive Protein, Quantitative 13.3 mg/dL (0.00-0.90) H Pro-B-Type Natriuretic Peptide 1588 pg/mL (0-125) H Total Protein 6.4 G/DL (6.4-8.2) Albumin 1.4 G/DL (3.4-5.0) L Globulin 5.0 g/dL Albumin/Globulin Ratio 0.3 (1.0-2.7) L White Blood Count 9.4 K/UL (4.8-10.8) # Red Blood Count 2.59 M/UL (4.70-6.10) L Hemoglobin 7.2 G/DL (14.2-18.0) #L Hematocrit 20.9 % (42.0-52.0) #L Mean Corpuscular Volume 81 FL (80-99) Mean Corpuscular Hemoglobin 27.7 PG (27.0-31.0) Mean Corpuscular Hemoglobin Concent 34.5 G/DL (32.0-36.0) Red Cell Distribution Width 14.7 % (11.6-14.8) Platelet Count 491 K/UL (150-450) H Mean Platelet Volume 5.8 FL (6.5-10.1) L Neutrophils (%) (Auto) % (45.0-75.0) Lymphocytes (%) (Auto) % (20.0-45.0) Monocytes (%) (Auto) % (1.0-10.0) Eosinophils (%) (Auto) % (0.0-3.0) Basophils (%) (Auto) % (0.0-2.0) Differential Total Cells Counted 100 Neutrophils % (Manual) 72 % (45-75) Lymphocytes % (Manual) 19 % (20-45) L Monocytes % (Manual) 7 % (1-10) Eosinophils % (Manual) 2 % (0-3) Basophils % (Manual) 0 % (0-2) Band Neutrophils 0 % (0-8) Platelet Estimate Adequate Platelet Morphology Normal Hypochromasia 1+ Anisocytosis 1+ Microcytosis 1+ Arterial Blood pH 7.505 (7.350-7.450) Arterial Blood Partial Pressure CO2 20.8 mmHg (35.0-45.0) *L Arterial Blood Partial Pressure O2 89.8 mmHg (75.0-100.0) Arterial Blood HCO3 16.0 mmol/L (22.0-26.0) *L Arterial Blood Oxygen Saturation 96.6 % (95-100) Arterial Blood Base Excess -6.1 (-2-2) L Donald Test Positive Current Medications Medications (Trade) Dose Ordered Sig/Tony Route PRN Reason Start Time Stop Time Status Last Admin Dose Admin Acetaminophen (Tylenol) 650 mg Q4H PRN GT Mild Pain/Temp > 100.5 06/22/19 01:00 07/22/19 00:59 06/23/19 16:14 Albuterol Sulfate (Proventil) 2.5 mg Q6HRT PRN HHN Bronchospasm 06/21/19 22:00 06/26/19 21:59 Chlorhexidine Gluconate (Kay-Hex 2%) 1 applic DAILY@2000 TOPIC 06/22/19 20:00 07/22/19 19:59 06/24/19 20:57 Dextrose 1,000 ml @ 50 mls/hr Q20H IV 06/25/19 09:00 07/25/19 08:59 06/25/19 09:35 Dextrose (Dextrose 50%) 25 ml Q30M PRN IV Hypoglycemia 06/21/19 22:00 07/21/19 21:59 Dextrose (Dextrose 50%) 50 ml Q30M PRN IV Hypoglycemia 06/21/19 22:00 07/21/19 21:59 Insulin Aspart (NovoLOG) Q6HR SUBQ 06/22/19 00:00 07/22/19 00:00 06/25/19 11:50 Iron Sucrose 100 mg/Sodium Chloride 60 ml @ 240 mls/hr BEDTIME IV 06/24/19 21:00 06/28/19 21:14 06/24/19 20:58 Levetiracetam (Keppra) 500 mg Q12HR GT 06/22/19 09:00 07/22/19 08:59 06/25/19 08:47 Linezolid 300 ml @ 300 mls/hr Q12HR IVPB 06/23/19 13:00 06/30/19 12:59 06/25/19 08:48 Meropenem 1 gm/ Sodium Chloride 55 ml @ 110 mls/hr Q8HR IVPB 06/24/19 14:00 06/29/19 13:59 06/25/19 15:12 Norepinephrine Bitartrate 4 mg/ Dextrose 250 ml @ 0 mls/hr Q24H PRN IV For hypotension 06/21/19 22:00 07/21/19 21:59 Pantoprazole (Protonix) 40 mg Q12HR IVP 06/23/19 21:00 07/22/19 06:29 06/25/19 08:47 Polyethylene Glycol (Miralax) 17 gm PRN PRN GT Constipation 06/21/19 22:00 07/21/19 21:59 Sodium Citrate (Bicitra) 45 ml EVERY 6 HOURS ORAL 06/23/19 14:15 07/23/19 14:14 06/25/19 11:49 Laura Gimenez M.D. Jun 25, 2019 16:34
[2019-06-25] MEDS: Acetaminophen 650mg/20.3ml GT PRN (17:04)
--- NOTE | 2019-06-25 17:15 | NUR ---
NURSE NOTES: BLOOD WAS PICKED UP BUT RETURNED BACK DUE TO TEMP 99.2.
--- NOTE | 2019-06-25 18:00 | NUR ---
NURSE NOTES: INFORMED DR CARRINGTON THAT BLOOD WASN'T GIVEN YET DUE HIGH FEVER. SEEN AT THE BEDSIDE. WILL CONTINUE TO MONITOR.
--- NOTE | 2019-06-25 19:20 | NUR ---
HAND-OFF: Report given to Bailee Jara RN.
--- NOTE | 2019-06-25 19:21 | NUR ---
NURSE NOTES: Late entry: PT and report received from MANUEL Hayward; received obtunded, open eyes, no tracking of staff during rounds; remains trach to vent portex 8, AC 12, TV 600, 30%, peep 5; no S/S of respiratory distress saturating at 100%; has GT feeding glucerna 1.2 @ 40cc/hr at goal; PT has byrnes and rectal tube patent draining at lowest position, remains on p200 mattress, IV sites R-AC 20g and R-sub clav TLC running D5W @ 50cc/hr patent intact flushes well, bed alarm on locked at lowest position, will continue to monitor PT.
[2019-06-25] MEDS: Dyna-Hex 2% Top Sol 2oz TOPIC SCH (20:41)
[2019-06-25] MEDS: Iron Sucrose 100 MG in NS 55 ML IV SCH (21:00)
--- NOTE | 2019-06-25 22:27 | NUR ---
NURSE NOTES: Scheduled Venofer not administered PT is receiving 1u pRBC. EDUARDO Whittaker made aware.
[2019-06-26] VITALS (9 sets, daily range): BP systolic 119–136; BP diastolic 70–84
[2019-06-26] MEDS: Sodium Citrate 30ml ORAL SCH ×5 (00:01→18:00)
[2019-06-26] MEDS: NovoLOG Insulin Flexpen SUBQ SCH ×5 (00:02→18:00)
--- NOTE | 2019-06-26 00:33 | NUR ---
NURSE NOTES: Thick to thin clear mucus coming from trach site; cleaned/dried; will continue to monitor; no S/S of transfusion reaction with 1u pRBC; will continue to monitor PT.
--- NOTE | 2019-06-26 03:12 | NUR ---
NURSE NOTES: VS stable, no S/S of respiratory distress noted. Will continue to monitor PT.
--- NOTE | 2019-06-26 04:22 | NUR ---
NURSE NOTES: PT rectal tube leaking slightly, cleaned and readjusted, wound care done with assistance from MANUEL Amos; repositioned PT; VS stable, will continue to monitor PT.
[2019-06-26] MEDS: Meropenem 1 GM in NS 55 ML IVPB SCH ×3 (05:17→21:36)
[2019-06-26] MEDS ORDERED: Albuterol ud Inhalation HHN PRN (05:45)
[2019-06-26] MEDS ORDERED: Miralax 17gm pkt GT PRN (05:45)
[2019-06-26] MEDS ORDERED: Acetaminophen 650mg/20.3ml GT PRN (05:45)
[2019-06-26] MEDS ORDERED: Meropenem 1 GM in NS 55 ML IVPB SCH (06:00)
--- NOTE | 2019-06-26 06:02 | NUR ---
TRANSFER TO FLOOR: Patient transferred to SDU [id number], per MD Madison. Placed on treatment manager, no S/S of respiratory distress during transfer.
--- NOTE | 2019-06-26 07:10 | NUR ---
NURSE NOTES: RECEIVED BED SIDE REPORT FROM FROM DANICA JACKSON. RECEIVED PT WITH HOB ELEVATED 45 DEGREE NON- VERBAL,OBTUNDED TRACH TO VENT.TOLERATING WELL CURRENTS VENT SETTINGS,RENDERED TRACH CARE AND ORAL HYGIENE,LARGE AMOUNT OF THICK WHITE AND YELLOWISH SECRETIONS NOTED.PT TOLERATING WELL GTF, NO RESIDUAL NOTED AT THIS TIME.F/C DRAINING WELL HODAN URINE COLOR AND RECTA TUBE IN PLACE DRAINING WATERY BROWNISH STOOL . FULL BODY ASSESSMENT DONE.PT REPOSITIONED Q2HRS TO PROVIDE COMFORT AND TO PREVENT FURTHER SKIN BREAK DOWN.TLC ON RT IJ IN PLACE AND INTACT.NO ACUTE DISTRESS NOTED AT THIS TIME. WILL CONT TO MONITOR.
--- NOTE | 2019-06-26 07:14 | NUR ---
RESPIRATORY NOTE: received vent dependent pt, trach with portex 8, midline, patent and secured via trach tie. no visible redness or skin irritation around stoma or neck area. vent orders are as followed. no signs of resp distress noted, only pt breathing with rate of 30-31. alarms are set and audible with ambu bag at bedside. will cont to monitor.
--- NOTE | 2019-06-26 07:15 | Progress Note ---
DATE: 06/25/2019 SUBJECTIVE: The patient is awake, alert, afebrile, and hemodynamically stable. PHYSICAL EXAMINATION: VITAL SIGNS: Blood pressure 131/76, his pulse is 62, respirations are 30, and temperature 98.3. HEENT: Eyes were normal. ENT, mucous membranes were moist and intact. NECK: Supple with no JVD and without lymph nodes. Tracheostomy site is clean. LUNGS: Clear without rhonchi, rales, or wheezing. There are bilateral rhonchi at both bases, left more than right. HEART: Normal sounds with regular beats. There is no tachycardia at rest. ABDOMEN: Soft, obese, and nontender with normal bowel sounds. EXTREMITIES: Warm without cyanosis, clubbing, or edema. LABORATORY AND DIAGNOSTIC DATA: Hemoglobin is 7.2, hematocrit 20.9 with MCV of 81, WBC of 9.4, and platelets 491,000. His BUN and creatinine 16 and 0.7 respectively. His sodium is 147, potassium 4.0, chloride 113, CO2 is 18. His calcium is 8.8, phosphorus is 2.6 and magnesium is 1.5. CRP declined from 33.9 to 13.9. His proBNP declined from 2890 to 1589. Chest x-ray showed unchanged bilateral interstitial and airspace disease, left greater than right, left-sided pleural effusion. IMPRESSION: 1. WBC. The patient is now hemodynamically congestive heart failure. 2. The patient has metabolic acidosis associated with severe anion gap tachypnea . PLAN: The patient will continue on his IV antibiotics. Repeat laboratory tests will be done in the a.m. Continue respiratory therapy. Liset Wallace M.D. DR: Sg JOB#: [id number] CC:
--- NOTE | 2019-06-26 07:15 | NUR ---
HAND-OFF: Report and PT given to MANUEL Velazquez.
--- NOTE | 2019-06-26 08:26 | Hematology/Onc Progress Note ---
Assessment/Plan Assessment/Plan ASSESSMENT AND RECOMMENDATIONS: # Anemia due to chronic disease v gi bleed, hgb downtrending since admission --> last time I saw this patient, hgb was 13.1, this was back in 2018 --> hgb trend 9-->8.1-->6.9-->12-->7.2 --> 2 units prbc for 06/24, 06/25 --> iv iron x 5 days given, low sat and ferritin relative to inflammatory process # Coagulopathy is likely due to dic --> vit k as as need, ffp as well --> if worsening coagulopathy and bleeding given ffp --> at this time treatment of underlying process # Leukocytosis is likely related to underyling Pna --> has been started on abx --> now IMPROVEd # PNA with infiltrates --> with sepsis poa, is on broad spectrum abx --> on pressors in icu on adm--> now sdu # Chronic cholecystitis s/p cholecystostomy tube in the past # Chronic resp failure vent/trach dependant # Asthma/COPD # HTN # Dm2 # Dementia # CVA s/p vegetative state # Dysphagia s/p G-tube --> replace as per gi # Seizure disorder # SNF resident GREATLY APPRECIATE CONSULTATION. Subjective Constitutional: Denies: no symptoms, chills, fever, malaise, weakness, other HEENT: Denies: no symptoms, eye pain, blurred vision, tearing, double vision, ear pain, ear discharge, nose pain, nose congestion, throat pain, throat swelling, mouth pain, mouth swelling, other Cardiovascular: Denies: no symptoms, chest pain, edema, irregular heart rate, lightheadedness, palpitations, syncope, other Respiratory: Denies: no symptoms, cough, shortness of breath, SOB with excertion, SOB at rest, sputum, wheezing, other Gastrointestinal/Abdominal: Denies: no symptoms, abdomen distended, abdominal pain, black stools, tarry stools, blood in stool, constipated, diarrhea, difficulty swallowing, nausea, poor appetite, poor fluid intake, rectal bleeding , vomiting, other Genitourinary: Denies: no symptoms, burning, discharge, frequency, flank pain, hematuria, incontinence, pain, urgency, other Neurologic/Psychiatric: Denies: no symptoms, anxiety, depressed, emotional problems, headache, numbness, paresthesia, pre-existing deficit, seizure, tingling, tremors, weakness, other Endocrine: Denies: no symptoms, excessive sweating, flushing, intolerance to cold, intolerance to heat, increased hunger, increased thirst, increased urine, unexplained weight gain, unexplained weight loss, other Hematologic/Lymphatic: Denies: no symptoms, anemia, easy bleeding, easy bruising, adenopathy, other Allergies: Coded Allergies: NO KNOWN DRUG ALLERGIES (Unverified Allergy, Unknown, 06/28/15) Subjective 06/25: no major changes, labs noted, hgb lower, dw MANUEL [place], needs blood, also gi consulted, in icu 06/26: on vent/trach, as needed prbc when labs come back Objective Objective Current Medications Medications (Trade) Dose Ordered Sig/Tony Route PRN Reason Start Time Stop Time Status Last Admin Dose Admin Acetaminophen (Tylenol) 650 mg Q4H PRN GT Mild Pain/Temp > 100.5 06/26/19 05:45 07/22/19 05:44 Chlorhexidine Gluconate (Kay-Hex 2%) 1 applic DAILY@2000 TOPIC 06/26/19 20:00 07/22/19 19:59 Dextrose 1,000 ml @ 50 mls/hr Q20H IV 06/26/19 05:30 07/25/19 08:59 Dextrose (Dextrose 50%) 25 ml Q30M PRN IV Hypoglycemia 06/26/19 05:30 07/21/19 21:59 Dextrose (Dextrose 50%) 50 ml Q30M PRN IV Hypoglycemia 06/26/19 05:30 07/21/19 21:59 Insulin Aspart (NovoLOG) Q6HR SUBQ 06/26/19 06:00 07/22/19 00:00 Iron Sucrose 100 mg/Sodium Chloride 60 ml @ 240 mls/hr BEDTIME IV 06/26/19 21:00 06/29/19 21:14 Levetiracetam (Keppra) 500 mg Q12HR GT 06/26/19 09:00 07/22/19 08:59 Meropenem 1 gm/ Sodium Chloride 55 ml @ 110 mls/hr Q8HR IVPB 06/26/19 14:00 07/01/19 13:59 Pantoprazole (Protonix) 40 mg Q12HR IVP 06/26/19 09:00 07/22/19 06:29 Polyethylene Glycol (Miralax) 17 gm PRN PRN GT Constipation 06/26/19 05:45 07/21/19 05:44 Sodium Citrate (Bicitra) 45 ml EVERY 6 HOURS ORAL 06/26/19 06:00 07/23/19 14:14 Last 24 Hour Vital Signs Date Time Temp Pulse Resp B/P (MAP) Pulse Ox O2 Delivery O2 Flow Rate FiO2 06/26/19 07:12 54 31 30 06/26/19 05:27 59 30 30 30 30 06/26/19 05:00 61 26 130/84 (99) 99 06/26/19 04:00 30 06/26/19 04:00 65 06/26/19 04:00 98.3 64 32 125/74 (91) 98 06/26/19 04:00 Mechanical Ventilator 06/26/19 03:00 65 33 119/71 (87) 97 06/26/19 02:30 65 34 30 30 30 06/26/19 02:00 65 29 120/71 (87) 99 06/26/19 01:00 61 33 133/70 (91) 100 06/26/19 00:56 62 26 30 30 30 06/26/19 00:00 Mechanical Ventilator 06/26/19 00:00 97.8 62 30 136/76 (96) 100 06/26/19 00:00 62 06/25/19 23:18 62 29 30 30 30 06/25/19 23:00 62 30 131/76 (94) 100 06/25/19 22:00 63 29 124/73 (90) 100 06/25/19 21:15 62 30 30 30 30 06/25/19 21:00 98.3 63 30 119/68 (85) 100 06/25/19 20:00 63 26 111/65 (80) 100 06/25/19 20:00 30 06/25/19 20:00 66 06/25/19 20:00 Mechanical Ventilator 06/25/19 19:04 32 32 30 30 30 06/25/19 19:00 99.4 67 30 105/65 (78) 100 06/25/19 18:45 98.3 06/25/19 18:00 67 32 117/74 (88) 100 06/25/19 17:34 99.2 06/25/19 17:00 99.2 68 31 110/74 (86) 100 06/25/19 16:59 69 32 30 06/25/19 16:00 67 31 114/70 (85) 100 06/25/19 16:00 Mechanical Ventilator 06/25/19 16:00 69 06/25/19 16:00 30 06/25/19 15:00 71 33 116/71 (86) 100 06/25/19 14:45 70 33 30 06/25/19 14:00 72 35 124/76 (92) 100 06/25/19 13:00 74 36 128/77 (94) 100 06/25/19 12:55 70 35 30 06/25/19 12:00 84 28 126/80 (95) 100 06/25/19 12:00 97.9 06/25/19 12:00 30 06/25/19 12:00 Mechanical Ventilator 06/25/19 12:00 73 06/25/19 11:00 72 34 122/68 (86) 100 06/25/19 10:56 77 34 30 06/25/19 10:00 77 33 118/71 (87) 100 06/25/19 09:48 30 06/25/19 08:39 82 29 30 06/25/19 08:00 30 06/25/19 08:00 Mechanical Ventilator 06/25/19 08:00 75 06/25/19 08:00 99.3 73 27 114/71 (85) 99 06/25/19 07:30 72 30 30 06/25/19 07:00 69 29 118/69 (85) 100 06/25/19 06:00 74 30 117/79 (92) 100 06/25/19 05:00 71 26 30 06/25/19 05:00 75 29 118/70 (86) 100 06/25/19 04:00 98.3 79 29 110/67 (81) 98 06/25/19 04:00 76 06/25/19 04:00 Mechanical Ventilator 06/25/19 04:00 30 06/25/19 03:05 77 27 30 06/25/19 03:00 73 29 112/70 (84) 99 06/25/19 02:00 74 29 113/73 (86) 99 06/25/19 01:13 76 30 30 06/25/19 01:00 76 30 106/66 (79) 98 06/25/19 00:00 98.5 79 29 107/69 (82) 98 06/25/19 00:00 Mechanical Ventilator 06/24/19 23:00 78 30 119/77 (91) 100 06/24/19 22:58 75 28 30 06/24/19 22:00 73 29 111/72 (85) 100 06/24/19 21:00 84 29 109/67 (81) 100 06/24/19 20:39 78 30 30 06/24/19 20:00 98.7 79 28 111/71 (84) 100 06/24/19 20:00 Mechanical Ventilator 06/24/19 20:00 74 06/24/19 20:00 30 06/24/19 19:20 82 31 30 06/24/19 19:00 78 30 119/75 (90) 100 06/24/19 18:00 83 28 108/78 (88) 98 06/24/19 17:28 84 29 30 06/24/19 17:00 81 28 98/63 (75) 100 06/24/19 16:00 82 06/24/19 16:00 98.1 81 28 102/66 (78) 100 06/24/19 16:00 30 06/24/19 16:00 Mechanical Ventilator 06/24/19 15:00 77 28 103/65 (78) 100 06/24/19 15:00 82 29 30 06/24/19 14:00 87 29 103/64 (77) 100 06/24/19 13:26 80 27 30 06/24/19 13:00 80 30 110/74 (86) 100 06/24/19 12:00 97.9 73 31 112/69 (83) 100 06/24/19 12:00 30 06/24/19 12:00 73 06/24/19 12:00 Mechanical Ventilator 06/24/19 11:16 73 31 30 06/24/19 11:00 81 30 102/66 (78) 100 06/24/19 10:00 80 30 96/63 (74) 100 06/24/19 09:01 84 32 30 06/24/19 09:00 84 30 103/66 (78) 100 Intake and Output 06/25/19 06/26/19 19:00 07:00 Intake Total 1710 ml 1355 ml Output Total 1900 ml 1200 ml Balance -190 ml 155 ml Intake Free Water 90 ml IV Total 1180 ml 605 ml Tube Feeding 440 ml 400 ml Blood Product 250 ml Other 100 ml Output Urine Total 1500 ml 1200 ml Stool Total 400 ml # Bowel Movements 3 3 Labs Test 06/23/19 09:15 06/23/19 13:18 06/23/19 18:47 06/23/19 20:10 Arterial Blood pH 7.326 (7.350-7.450) Arterial Blood Partial Pressure CO2 22.0 mmHg (35.0-45.0) Arterial Blood Partial Pressure O2 110.8 mmHg (75.0-100.0) Arterial Blood HCO3 11.2 mmol/L (22.0-26.0) Arterial Blood Oxygen Saturation 98.4 % (95-100) Arterial Blood Base Excess -13.6 (-2-2) Donald Test Positive Stool Occult Blood Positive (NEGATIVE) Uric Acid 4.4 MG/DL (2.6-7.2) Phosphorus Level 1.8 MG/DL (2.5-4.9) Magnesium Level 1.5 MG/DL (1.8-2.4) Total Bilirubin 0.3 MG/DL (0.2-1.0) Direct Bilirubin < 0.1 MG/DL (0.0-0.3) Aspartate Amino Transf (AST/SGOT) 10 U/L (15-37) Alanine Aminotransferase (ALT/SGPT) 9 U/L (12-78) Alkaline Phosphatase 79 U/L (46-116) Total Protein 6.1 G/DL (6.4-8.2) Albumin 1.4 G/DL (3.4-5.0) Vitamin B12 Level 1227 PG/ML (193-986) Folate 18.1 NG/ML (8.6-58.9) Acetone Level Negative (NEGATIVE) Lactic Acid Level 1.70 mmol/L (0.4-2.0) Test 06/24/19 05:58 06/24/19 08:45 06/25/19 05:12 06/25/19 07:55 White Blood Count 5.9 K/UL (4.8-10.8) 9.4 K/UL (4.8-10.8) Red Blood Count 4.61 M/UL (4.70-6.10) 2.59 M/UL (4.70-6.10) Hemoglobin 12.5 G/DL (14.2-18.0) 7.2 G/DL (14.2-18.0) Hematocrit 37.4 % (42.0-52.0) 20.9 % (42.0-52.0) Mean Corpuscular Volume 81 FL (80-99) 81 FL (80-99) Mean Corpuscular Hemoglobin 27.1 PG (27.0-31.0) 27.7 PG (27.0-31.0) Mean Corpuscular Hemoglobin Concent 33.4 G/DL (32.0-36.0) 34.5 G/DL (32.0-36.0) Red Cell Distribution Width 15.1 % (11.6-14.8) 14.7 % (11.6-14.8) Platelet Count 438 K/UL (150-450) 491 K/UL (150-450) Mean Platelet Volume 6.0 FL (6.5-10.1) 5.8 FL (6.5-10.1) Neutrophils (%) (Auto) 82.5 % (45.0-75.0) % (45.0-75.0) Lymphocytes (%) (Auto) 8.3 % (20.0-45.0) % (20.0-45.0) Monocytes (%) (Auto) 7.4 % (1.0-10.0) % (1.0-10.0) Eosinophils (%) (Auto) 1.4 % (0.0-3.0) % (0.0-3.0) Basophils (%) (Auto) 0.4 % (0.0-2.0) % (0.0-2.0) Sodium Level 152 MMOL/L (136-145) 147 MMOL/L (136-145) Potassium Level 2.5 MMOL/L (3.5-5.1) 4.0 MMOL/L (3.5-5.1) Chloride Level 118 MMOL/L (98-107) 113 MMOL/L (98-107) Carbon Dioxide Level 14 MMOL/L (21-32) 18 MMOL/L (21-32) Anion Gap 20 mmol/L (5-15) 16 mmol/L (5-15) Blood Urea Nitrogen 15 mg/dL (7-18) 15 mg/dL (7-18) Creatinine 0.7 MG/DL (0.55-1.30) 0.7 MG/DL (0.55-1.30) Estimat Glomerular Filtration Rate > 60 mL/min (>60) > 60 mL/min (>60) Glucose Level 263 MG/DL (74-106) 285 MG/DL (74-106) Lactic Acid Level 1.80 mmol/L (0.4-2.0) Uric Acid 4.4 MG/DL (2.6-7.2) 4.9 MG/DL (2.6-7.2) Calcium Level 9.5 MG/DL (8.5-10.1) 8.8 MG/DL (8.5-10.1) Phosphorus Level 3.1 MG/DL (2.5-4.9) 2.6 MG/DL (2.5-4.9) Magnesium Level 2.1 MG/DL (1.8-2.4) 1.5 MG/DL (1.8-2.4) Total Bilirubin 0.3 MG/DL (0.2-1.0) 0.3 MG/DL (0.2-1.0) Gamma Glutamyl Transpeptidase 64 U/L (5-85) Aspartate Amino Transf (AST/SGOT) 13 U/L (15-37) 14 U/L (15-37) Alanine Aminotransferase (ALT/SGPT) 10 U/L (12-78) 10 U/L (12-78) Alkaline Phosphatase 84 U/L (46-116) 81 U/L (46-116) Troponin I 0.013 ng/mL (0.000-0.056) C-Reactive Protein, Quantitative 23.9 mg/dL (0.00-0.90) 13.3 mg/dL (0.00-0.90) Pro-B-Type Natriuretic Peptide 2898 pg/mL (0-125) 1588 pg/mL (0-125) Total Protein 6.5 G/DL (6.4-8.2) 6.4 G/DL (6.4-8.2) Albumin 1.4 G/DL (3.4-5.0) 1.4 G/DL (3.4-5.0) Globulin 5.1 g/dL 5.0 g/dL Albumin/Globulin Ratio 0.3 (1.0-2.7) 0.3 (1.0-2.7) Triglycerides Level 153 MG/DL (30-150) Cholesterol Level 68 MG/DL (< 200) LDL Cholesterol 42 mg/dL (<100) HDL Cholesterol 7 MG/DL (40-60) Cholesterol/HDL Ratio 9.7 (3.3-4.4) Lipase > 2000 U/L (73-393) Thyroid Stimulating Hormone (TSH) 0.234 uiU/mL (0.358-3.740) Random Amikacin Level 6.9 MG/L Arterial Blood pH 7.426 (7.350-7.450) Arterial Blood Partial Pressure CO2 21.8 mmHg (35.0-45.0) Arterial Blood Partial Pressure O2 87.4 mmHg (75.0-100.0) Arterial Blood HCO3 14.0 mmol/L (22.0-26.0) Arterial Blood Oxygen Saturation 96.6 % (95-100) Arterial Blood Base Excess -9.2 (-2-2) Donald Test Positive Differential Total Cells Counted 100 Neutrophils % (Manual) 72 % (45-75) Lymphocytes % (Manual) 19 % (20-45) Monocytes % (Manual) 7 % (1-10) Eosinophils % (Manual) 2 % (0-3) Basophils % (Manual) 0 % (0-2) Band Neutrophils 0 % (0-8) Platelet Estimate Adequate Platelet Morphology Normal Hypochromasia 1+ Anisocytosis 1+ Microcytosis 1+ Test 06/25/19 08:45 Arterial Blood pH 7.505 (7.350-7.450) Arterial Blood Partial Pressure CO2 20.8 mmHg (35.0-45.0) Arterial Blood Partial Pressure O2 89.8 mmHg (75.0-100.0) Arterial Blood HCO3 16.0 mmol/L (22.0-26.0) Arterial Blood Oxygen Saturation 96.6 % (95-100) Arterial Blood Base Excess -6.1 (-2-2) Donald Test Positive Height (Feet): 5 Height (Inches): 7.00 Weight (Pounds): 164 Objective Physical Exam HEENT: normocephalic, bilateral eye PERRL Neck: normal inspection, supple, tracheotomy - site c/d/i ++ vent Respiratory: chest non-tender, lungs clear, normal breath sounds, chest symmetrical, palpation of chest normal Cardiovascular : normal peripheral pulses, regular rate, rhythm Gastrointestinal: normal inspection, non tender, soft, no mass, no guarding, no rebound, ++ feeding tube c/d/i Genitourinary: normal inspection, no CVA tenderness Musculoskeletal: back normal, gait/station normal, normal range of motion, non- tender, no calf tenderness Neurologic: nonverbal Skin: normal color, no darrell GI: ++ Manolo Cervantes MD Jun 26, 2019 08:26
[2019-06-26 08:35] LABS: BASOPHILS % (AUTO) 0.4 % (0.0-2.0); EOSINOPHILS % (AUTO) 2.6 % (0.0-3.0); HEMATOCRIT 25.2 % (42.0-52.0); HEMOGLOBIN 8.5 G/DL (14.2-18.0); LYMPHOCYTES % (AUTO) 13.8 % (20.0-45.0); MEAN CORPUSCULAR VOLUME 81 FL (80-99); MONOCYTES % (AUTO) 6.9 % (1.0-10.0); NEUTROPHILS % (AUTO) 76.3 % (45.0-75.0); PLATELET COUNT 521 K/UL (150-450); RED BLOOD COUNT 3.09 M/UL (4.70-6.10); RED CELL DISTRIBUTION WIDTH 14.2 % (11.6-14.8); WHITE BLOOD COUNT 9.6 K/UL (4.8-10.8)
[2019-06-26] MEDS: Pantoprazole Inj IVP SCH ×2 (08:50→20:25)
[2019-06-26 09:50] LABS: ALANINE AMINOTRANSFERASE 13 U/L (12-78); ALBUMIN 1.6 G/DL (3.4-5.0); ALBUMIN/GLOBULIN RATIO 0.4 (1.0-2.7); ALKALINE PHOSPHATASE 82 U/L (46-116); ANION GAP 15 mmol/L (5-15); ASPARTATE AMINO TRANSFERASE 14 U/L (15-37); BILIRUBIN,TOTAL 0.3 MG/DL (0.2-1.0); BLOOD UREA NITROGEN 12 mg/dL (7-18); CALCIUM 8.5 MG/DL (8.5-10.1); CARBON DIOXIDE 22 MMOL/L (21-32); CHLORIDE 109 MMOL/L (98-107); CREATININE 0.6 MG/DL (0.55-1.30); PHOSPHORUS 3.2 MG/DL (2.5-4.9); POTASSIUM 3.6 MMOL/L (3.5-5.1); SODIUM 146 MMOL/L (136-145)
--- NOTE | 2019-06-26 10:30 | Diagnostic Imaging Report ---
Indication: Bilateral leg pain Technique: Grayscale and duplex images of the bilateral lower extremity veins Comparison: 04/12/2018 Findings: Bilaterally, grayscale and duplex images demonstrate no evidence of intraluminal thrombus. Normal phasic Doppler waveforms, demonstrating normal augmentation response and no evidence of valvular insufficiency. Patent tibial and greater saphenous veins. No significant interim change Impression: Negative for evidence of lower extremity deep venous thrombosis bilaterally
--- NOTE | 2019-06-26 10:53 | Infectious Diseases Prog Note ---
Assessment/Plan Assessment/Plan Assessment: Severe Sepsis ESBL E.coli UTI c/w bacteremia Multifocal PNA -06/25 CXR: Bilateral interstitial and airspace disease, left greater than right, again demonstrated. Left-sided pleural effusion is again demonstrated -sp cx ESBL E.coli -u/a wbc tnct, nit neg, leuk +3; ucx >100k ESBL E.coli (S Zosyn, Imi, Amikacin) -06/21 Bcx 06/17 ESBL E.coli (S Zosyn, Imi, Amikacin); 06/23 Bcx p -06/21 CXR:.New bilateral patchy airspace opacities in the left midlung an as well as the right upper lung concerning for multifocal pneumonia. Similar retrocardiac atelectasis or consolidation. -influenza sc neg Severe anion gap metabolic acidosis - ?etiology- normal lactic acid, normal Cr- BG levels between 119-170s- r/o DKA vs other Fever, SP No leukocytosis HTN asthma COPD persistent vegetative state CVA Dm2 chronic respiratory failure s/p trach/vent dependent Dysphagia s/p GT NH resident Plan: -Continue Meropenem #3 (abx d #4) for ESBL UTI and bacteremia and PNA -06/25 SP IV Linezolid #3 -06/24 SP Tamiflu #2, IV amikacin #2, Cefepime #3 -06/23 SP flagyl #3 -06/22 SP Ertapenem x1 -06/21 SP Zosyn x1 -f/u cx -Monitor CBC/CMP, temperatures -f/u Bcx x2, sp cx -GT/trach/ICU care -aspiration precautions -neprho f/u Thank you for this consultation. Will continue to follow along with you. Discussed with RN Subjective Allergies: Coded Allergies: NO KNOWN DRUG ALLERGIES (Unverified Allergy, Unknown, 06/28/15) Subjective afebrile >48hrs no leuckocytosis repeat Bcx NTD transferred out ICU to [facility] Objective Vital Signs Last 24 Hour Vital Signs Date Time Temp Pulse Resp B/P (MAP) Pulse Ox O2 Delivery O2 Flow Rate FiO2 06/26/19 10:43 61 27 30 06/26/19 08:50 57 18 30 06/26/19 08:00 62 06/26/19 08:00 30 06/26/19 08:00 Mechanical Ventilator 06/26/19 07:12 54 31 30 06/26/19 05:27 59 30 30 30 30 06/26/19 05:00 61 26 130/84 (99) 99 06/26/19 04:00 30 06/26/19 04:00 65 06/26/19 04:00 98.3 64 32 125/74 (91) 98 06/26/19 04:00 Mechanical Ventilator 06/26/19 03:00 65 33 119/71 (87) 97 06/26/19 02:30 65 34 30 30 30 06/26/19 02:00 65 29 120/71 (87) 99 06/26/19 01:00 61 33 133/70 (91) 100 06/26/19 00:56 62 26 30 30 30 06/26/19 00:00 Mechanical Ventilator 06/26/19 00:00 97.8 62 30 136/76 (96) 100 06/26/19 00:00 62 06/25/19 23:18 62 29 30 30 30 06/25/19 23:00 62 30 131/76 (94) 100 06/25/19 22:00 63 29 124/73 (90) 100 06/25/19 21:15 62 30 30 30 30 06/25/19 21:00 98.3 63 30 119/68 (85) 100 06/25/19 20:00 63 26 111/65 (80) 100 06/25/19 20:00 30 06/25/19 20:00 66 06/25/19 20:00 Mechanical Ventilator 06/25/19 19:04 32 32 30 30 30 06/25/19 19:00 99.4 67 30 105/65 (78) 100 06/25/19 18:45 98.3 06/25/19 18:00 67 32 117/74 (88) 100 06/25/19 17:34 99.2 06/25/19 17:00 99.2 68 31 110/74 (86) 100 06/25/19 16:59 69 32 30 06/25/19 16:00 67 31 114/70 (85) 100 06/25/19 16:00 Mechanical Ventilator 06/25/19 16:00 69 06/25/19 16:00 30 06/25/19 15:00 71 33 116/71 (86) 100 06/25/19 14:45 70 33 30 06/25/19 14:00 72 35 124/76 (92) 100 06/25/19 13:00 74 36 128/77 (94) 100 06/25/19 12:55 70 35 30 06/25/19 12:00 84 28 126/80 (95) 100 06/25/19 12:00 97.9 06/25/19 12:00 30 06/25/19 12:00 Mechanical Ventilator 06/25/19 12:00 73 06/25/19 11:00 72 34 122/68 (86) 100 06/25/19 10:56 77 34 30 Height (Feet): 5 Height (Inches): 7.00 Weight (Pounds): 164 Objective General Appearance: alert, Chronically Ill ENT: dry mucus membranes, other Neck: normal inspection, suppl limited range of motion, tracheotomy Respiratory: normal inspection, no respiratory distress, no wheezing Cardiovascular: regular rate, rhythm, no edema Gastrointestinal: normal bowel sounds, soft, no guarding, no hernia Musculoskeletal: normal range of motion, other - Bilateral upper and lower extremity motor weakness. Skin: no rash Microbiology Date/Time Source Procedure Growth Status 06/23/19 18:55 Blood Blood Culture - Preliminary NO GROWTH AFTER 48 HOURS Resulted 06/23/19 18:47 Blood Blood Culture - Preliminary NO GROWTH AFTER 48 HOURS Resulted 06/23/19 13:30 Nasopharynx - Final Complete 06/23/19 13:30 Nasopharynx - Final Complete 06/23/19 13:30 Sputum Gram Stain - Final Complete 06/23/19 13:30 Sputum Culture - Final Escherichia Coli - Esbl Complete Laboratory Tests Test 06/26/19 07:35 White Blood Count 9.6 K/UL (4.8-10.8) Red Blood Count 3.09 M/UL (4.70-6.10) L Hemoglobin 8.5 G/DL (14.2-18.0) L Hematocrit 25.2 % (42.0-52.0) L Mean Corpuscular Volume 81 FL (80-99) Mean Corpuscular Hemoglobin 27.5 PG (27.0-31.0) Mean Corpuscular Hemoglobin Concent 33.8 G/DL (32.0-36.0) Red Cell Distribution Width 14.2 % (11.6-14.8) Platelet Count 521 K/UL (150-450) H Mean Platelet Volume 6.1 FL (6.5-10.1) L Neutrophils (%) (Auto) 76.3 % (45.0-75.0) H Lymphocytes (%) (Auto) 13.8 % (20.0-45.0) L Monocytes (%) (Auto) 6.9 % (1.0-10.0) Eosinophils (%) (Auto) 2.6 % (0.0-3.0) Basophils (%) (Auto) 0.4 % (0.0-2.0) Sodium Level 146 MMOL/L (136-145) H Potassium Level 3.6 MMOL/L (3.5-5.1) Chloride Level 109 MMOL/L (98-107) H Carbon Dioxide Level 22 MMOL/L (21-32) Anion Gap 15 mmol/L (5-15) Blood Urea Nitrogen 12 mg/dL (7-18) Creatinine 0.6 MG/DL (0.55-1.30) Estimat Glomerular Filtration Rate > 60 mL/min (>60) Glucose Level 291 MG/DL (74-106) H Calcium Level 8.5 MG/DL (8.5-10.1) Phosphorus Level 3.2 MG/DL (2.5-4.9) Magnesium Level 1.9 MG/DL (1.8-2.4) Total Bilirubin 0.3 MG/DL (0.2-1.0) Aspartate Amino Transf (AST/SGOT) 14 U/L (15-37) L Alanine Aminotransferase (ALT/SGPT) 13 U/L (12-78) Alkaline Phosphatase 82 U/L (46-116) C-Reactive Protein, Quantitative 8.1 mg/dL (0.00-0.90) H Pro-B-Type Natriuretic Peptide 1628 pg/mL (0-125) H Total Protein 5.6 G/DL (6.4-8.2) L Albumin 1.6 G/DL (3.4-5.0) L Globulin 4.0 g/dL Albumin/Globulin Ratio 0.4 (1.0-2.7) L Current Medications Medications (Trade) Dose Ordered Sig/Tony Route PRN Reason Start Time Stop Time Status Last Admin Dose Admin Acetaminophen (Tylenol) 650 mg Q4H PRN GT Mild Pain/Temp > 100.5 06/26/19 05:45 07/22/19 05:44 Chlorhexidine Gluconate (Kay-Hex 2%) 1 applic DAILY@2000 TOPIC 06/26/19 20:00 07/22/19 19:59 Dextrose 1,000 ml @ 50 mls/hr Q20H IV 06/26/19 05:30 07/25/19 08:59 Dextrose (Dextrose 50%) 25 ml Q30M PRN IV Hypoglycemia 06/26/19 05:30 07/21/19 21:59 Dextrose (Dextrose 50%) 50 ml Q30M PRN IV Hypoglycemia 06/26/19 05:30 07/21/19 21:59 Insulin Aspart (NovoLOG) Q6HR SUBQ 06/26/19 06:00 07/22/19 00:00 Iron Sucrose 100 mg/Sodium Chloride 60 ml @ 240 mls/hr BEDTIME IV 06/26/19 21:00 06/29/19 21:14 Levetiracetam (Keppra) 500 mg Q12HR GT 06/26/19 09:00 07/22/19 08:59 06/26/19 08:50 Meropenem 1 gm/ Sodium Chloride 55 ml @ 110 mls/hr Q8HR IVPB 06/26/19 14:00 07/01/19 13:59 Pantoprazole (Protonix) 40 mg Q12HR IVP 06/26/19 09:00 07/22/19 06:29 06/26/19 08:50 Polyethylene Glycol (Miralax) 17 gm PRN PRN GT Constipation 06/26/19 05:45 07/21/19 05:44 Sodium Citrate (Bicitra) 45 ml EVERY 6 HOURS ORAL 06/26/19 06:00 07/23/19 14:14 Laura Gimenez M.D. Jun 26, 2019 10:52
--- NOTE | 2019-06-26 10:57 | Surgery Progress Note ---
Surgery Progress Note Subjective Additional Comments downgraded no n/v/f/c labs reviewed exam stable Objective Last 24 Hour Vital Signs Date Time Temp Pulse Resp B/P (MAP) Pulse Ox O2 Delivery O2 Flow Rate FiO2 06/26/19 10:43 61 27 30 06/26/19 08:50 57 18 30 06/26/19 08:00 62 06/26/19 08:00 30 06/26/19 08:00 Mechanical Ventilator 06/26/19 07:12 54 31 30 06/26/19 05:27 59 30 30 30 30 06/26/19 05:00 61 26 130/84 (99) 99 06/26/19 04:00 30 06/26/19 04:00 65 06/26/19 04:00 98.3 64 32 125/74 (91) 98 06/26/19 04:00 Mechanical Ventilator 06/26/19 03:00 65 33 119/71 (87) 97 06/26/19 02:30 65 34 30 30 30 06/26/19 02:00 65 29 120/71 (87) 99 06/26/19 01:00 61 33 133/70 (91) 100 06/26/19 00:56 62 26 30 30 30 06/26/19 00:00 Mechanical Ventilator 06/26/19 00:00 97.8 62 30 136/76 (96) 100 06/26/19 00:00 62 06/25/19 23:18 62 29 30 30 30 06/25/19 23:00 62 30 131/76 (94) 100 06/25/19 22:00 63 29 124/73 (90) 100 06/25/19 21:15 62 30 30 30 30 06/25/19 21:00 98.3 63 30 119/68 (85) 100 06/25/19 20:00 63 26 111/65 (80) 100 06/25/19 20:00 30 06/25/19 20:00 66 06/25/19 20:00 Mechanical Ventilator 06/25/19 19:04 32 32 30 30 30 06/25/19 19:00 99.4 67 30 105/65 (78) 100 06/25/19 18:45 98.3 06/25/19 18:00 67 32 117/74 (88) 100 06/25/19 17:34 99.2 06/25/19 17:00 99.2 68 31 110/74 (86) 100 06/25/19 16:59 69 32 30 06/25/19 16:00 67 31 114/70 (85) 100 06/25/19 16:00 Mechanical Ventilator 06/25/19 16:00 69 06/25/19 16:00 30 06/25/19 15:00 71 33 116/71 (86) 100 06/25/19 14:45 70 33 30 06/25/19 14:00 72 35 124/76 (92) 100 06/25/19 13:00 74 36 128/77 (94) 100 06/25/19 12:55 70 35 30 06/25/19 12:00 84 28 126/80 (95) 100 06/25/19 12:00 97.9 06/25/19 12:00 30 06/25/19 12:00 Mechanical Ventilator 06/25/19 12:00 73 06/25/19 11:00 72 34 122/68 (86) 100 I&O Intake and Output 06/25/19 06/26/19 19:00 07:00 Intake Total 1710 ml 1355 ml Output Total 1900 ml 1200 ml Balance -190 ml 155 ml Intake Free Water 90 ml IV Total 1180 ml 605 ml Tube Feeding 440 ml 400 ml Blood Product 250 ml Other 100 ml Output Urine Total 1500 ml 1200 ml Stool Total 400 ml # Bowel Movements 3 3 Dressing: other Wound: other Drains: other Cardiovascular: RSR Respiratory: decreased breath sounds Abdomen: soft, present bowel sounds, non-distended Extremities: no cyanosis, other Laboratory Tests Test 06/26/19 07:35 White Blood Count 9.6 K/UL (4.8-10.8) Red Blood Count 3.09 M/UL (4.70-6.10) L Hemoglobin 8.5 G/DL (14.2-18.0) L Hematocrit 25.2 % (42.0-52.0) L Mean Corpuscular Volume 81 FL (80-99) Mean Corpuscular Hemoglobin 27.5 PG (27.0-31.0) Mean Corpuscular Hemoglobin Concent 33.8 G/DL (32.0-36.0) Red Cell Distribution Width 14.2 % (11.6-14.8) Platelet Count 521 K/UL (150-450) H Mean Platelet Volume 6.1 FL (6.5-10.1) L Neutrophils (%) (Auto) 76.3 % (45.0-75.0) H Lymphocytes (%) (Auto) 13.8 % (20.0-45.0) L Monocytes (%) (Auto) 6.9 % (1.0-10.0) Eosinophils (%) (Auto) 2.6 % (0.0-3.0) Basophils (%) (Auto) 0.4 % (0.0-2.0) Sodium Level 146 MMOL/L (136-145) H Potassium Level 3.6 MMOL/L (3.5-5.1) Chloride Level 109 MMOL/L (98-107) H Carbon Dioxide Level 22 MMOL/L (21-32) Anion Gap 15 mmol/L (5-15) Blood Urea Nitrogen 12 mg/dL (7-18) Creatinine 0.6 MG/DL (0.55-1.30) Estimat Glomerular Filtration Rate > 60 mL/min (>60) Glucose Level 291 MG/DL (74-106) H Calcium Level 8.5 MG/DL (8.5-10.1) Phosphorus Level 3.2 MG/DL (2.5-4.9) Magnesium Level 1.9 MG/DL (1.8-2.4) Total Bilirubin 0.3 MG/DL (0.2-1.0) Aspartate Amino Transf (AST/SGOT) 14 U/L (15-37) L Alanine Aminotransferase (ALT/SGPT) 13 U/L (12-78) Alkaline Phosphatase 82 U/L (46-116) C-Reactive Protein, Quantitative 8.1 mg/dL (0.00-0.90) H Pro-B-Type Natriuretic Peptide 1628 pg/mL (0-125) H Total Protein 5.6 G/DL (6.4-8.2) L Albumin 1.6 G/DL (3.4-5.0) L Globulin 4.0 g/dL Albumin/Globulin Ratio 0.4 (1.0-2.7) L Plan Problems: (1) Decubitus skin ulcer Assessment & Plan: Pt presented on admission with multiple pressure injuries and Moisture Associated Skin damage Buttocks and Bilateral groin. Both earlobes including medial canals noted to have scaly red plaques and and small lesions. Full thickness stage 3 pressure injury posterior neck under collar of trach. Base of wound has 25% slough,75% beefy red .Small amt serosanguineous exudate noted. Borders are macerated. Surrounding skin is clean and dry. Moisture Associated Skin Damage noted to bilateral groin areas,Buttocks and bilateral ischium. Skin is grossly erythematous and denuded with scattered satellite lesions. Full thickness stage 3 sacral pressure injury. Base of wound is 25% necrotic ,30 % slough ,otherwise beefy red with small amt serous exudate.Borders are macerated.(L)(L)8.5cm x (W)10cm. Periwound MASD. Full Thickness stage 3 pressure injury R trochanter. Base of wound 80% beefy red ,20% slough. Small amt serous exudate. Borders are macerated(L)3cm x (W) 3.2cm. No odor noted.Periwound MASD. Full Thickness stage 3 pressure injury R ischium. Base of wound is 25% necrotic , beefy red with scattered slough. Borders are macerated. Small amt serous exudate noted. No odor noted.(L)5.3cm x (W)3.9cm. Periwound MASD. Full thickness stage 3 pressure injury L Ischium. Base of wound is beefy red and moist. Borders are macerated. Small amt serous exudate noted.(L)4cm x (W) 3.2cm x (D)0.2cm. Both heels are pink and easily blanchable. Bilat foot drop noted. Tx.Plan: Cleanse wounds on Buttocks, sacrum, ishium, trochanter with Saline. Apply Therahoney to wounds. Apply Triad Paste periwound to cover erythematous skin. Cover with Optifoam drsgs Daily and prn. Apply Phytoplex Lotion to R and L ears daily and prn. Apply Cavilon Skin Barrier to Both heels. Cover each heel with Optifoam drsg. Change every 7 days and prn. APM/MAICOL Mattress overlay. Reposition at least every 2hours or as tolerated. Off-load heels with pillow. Place pillow between knees. (2) Feeding by G-tube Assessment & Plan: DAILY ESTIMATED NEEDS: Needs based on Critical care, wounds 73kg 22-30 kcals/kg 8246-7262 total kcals 1.25-2 g protein/kg 91-146 g total protein 25-30 mL/kg 7991-6133 total fluid mLs NUTRITION DIAGNOSIS: 1) Increased kcal/pro needs R/T wound healing as evidenced by pt admitted w/ multiple wounds, sacral, BL buttocks full thickness. 2) Swallowing difficulty R/T respiratory status as evidenced by pt trach/PEG dep for all nutritional needs. CURRENT TF: Glucerna 1.2 @40/hr ENTERAL NUTRITION RECOMMENDATIONS: Glucerna 1.5 @ 50ml/hr x 24 hrs + Prosource x1 to provide 1200ml, 1800kcal, 99g + 11g prot, 911ml free water - Rec TF change to Glucerna 1.5 to better meet est kcal and protein needs - Start @ 20ml/hr x 6 hrs, increase by 10ml every 4-6 hrs to goal rate as tolerated - HOB 30-45 degrees/ water flush per MD ADDITIONAL RECOMMENDATIONS: 1. Maintain calibrated bed scale for accurate CBW 2. Wound healing: Add Christian 1pkt BID F/up w/ WC RN osmani 3. Monitor lytes daily, replete as needed Elevated Na (150), rec increase water flushes 4. F/up w/ H&P (3) Status post tracheostomy Assessment & Plan: need to monitor trach collar closely as worsening wound keep protected as above will monitor Steve Franks Jun 26, 2019 10:57
--- NOTE | 2019-06-26 11:11 | Nephrology Progress Note ---
Assessment/Plan Problem List: (1) Metabolic acidosis (2) Acute blood loss anemia (3) Hypokalemia (4) Chronic respiratory failure Assessment Metabolic Acidosis HypoKalemia HyperNatremia Severe Anemia Other Conditions: (1) Nosocomial pneumonia (2) Sepsis (3) Ventilator dependent (4) Chronic vegetative state (5) COPD (chronic obstructive pulmonary disease) (6) Feeding by G-tube (7) Diabetes mellitus, type II (8) Cerebral vascular disease (9) Seizure disorder (10) Chronic complete quadriplegia Plan K supplement as needed Bicitra GT D5W IV fluid Protonix IV watch H&H Transfusion as needed per orders Subjective ROS Limited/Unobtainable: Yes Objective Objective Last 24 Hour Vital Signs Date Time Temp Pulse Resp B/P (MAP) Pulse Ox O2 Delivery O2 Flow Rate FiO2 06/26/19 10:43 61 27 30 06/26/19 08:50 57 18 30 06/26/19 08:00 62 06/26/19 08:00 98.5 61 22 130/79 (96) 99 61 06/26/19 08:00 30 06/26/19 08:00 Mechanical Ventilator 06/26/19 07:12 54 31 30 06/26/19 05:27 59 30 30 30 30 06/26/19 05:00 61 26 130/84 (99) 99 06/26/19 04:00 30 06/26/19 04:00 65 06/26/19 04:00 98.3 64 32 125/74 (91) 98 06/26/19 04:00 Mechanical Ventilator 06/26/19 03:00 65 33 119/71 (87) 97 06/26/19 02:30 65 34 30 30 30 06/26/19 02:00 65 29 120/71 (87) 99 06/26/19 01:00 61 33 133/70 (91) 100 06/26/19 00:56 62 26 30 30 30 06/26/19 00:00 Mechanical Ventilator 06/26/19 00:00 97.8 62 30 136/76 (96) 100 06/26/19 00:00 62 06/25/19 23:18 62 29 30 30 30 06/25/19 23:00 62 30 131/76 (94) 100 06/25/19 22:00 63 29 124/73 (90) 100 06/25/19 21:15 62 30 30 30 30 06/25/19 21:00 98.3 63 30 119/68 (85) 100 06/25/19 20:00 63 26 111/65 (80) 100 06/25/19 20:00 30 06/25/19 20:00 66 06/25/19 20:00 Mechanical Ventilator 06/25/19 19:04 32 32 30 30 30 06/25/19 19:00 99.4 67 30 105/65 (78) 100 06/25/19 18:45 98.3 06/25/19 18:00 67 32 117/74 (88) 100 06/25/19 17:34 99.2 06/25/19 17:00 99.2 68 31 110/74 (86) 100 06/25/19 16:59 69 32 30 06/25/19 16:00 67 31 114/70 (85) 100 06/25/19 16:00 Mechanical Ventilator 06/25/19 16:00 69 06/25/19 16:00 30 06/25/19 15:00 71 33 116/71 (86) 100 06/25/19 14:45 70 33 30 06/25/19 14:00 72 35 124/76 (92) 100 06/25/19 13:00 74 36 128/77 (94) 100 06/25/19 12:55 70 35 30 06/25/19 12:00 84 28 126/80 (95) 100 06/25/19 12:00 97.9 06/25/19 12:00 30 06/25/19 12:00 Mechanical Ventilator 06/25/19 12:00 73 Intake and Output 06/25/19 06/26/19 19:00 07:00 Intake Total 1710 ml 1395 ml Output Total 1900 ml 1200 ml Balance -190 ml 195 ml Intake Free Water 90 ml IV Total 1180 ml 605 ml Tube Feeding 440 ml 440 ml Blood Product 250 ml Other 100 ml Output Urine Total 1500 ml 1200 ml Stool Total 400 ml # Bowel Movements 3 3 Current Medications Medications (Trade) Dose Ordered Sig/Tony Route PRN Reason Start Time Stop Time Status Last Admin Dose Admin Acetaminophen (Tylenol) 650 mg Q4H PRN GT Mild Pain/Temp > 100.5 06/26/19 05:45 07/22/19 05:44 Chlorhexidine Gluconate (Kay-Hex 2%) 1 applic DAILY@2000 TOPIC 06/26/19 20:00 07/22/19 19:59 Dextrose 1,000 ml @ 50 mls/hr Q20H IV 06/26/19 05:30 07/25/19 08:59 Dextrose (Dextrose 50%) 25 ml Q30M PRN IV Hypoglycemia 06/26/19 05:30 07/21/19 21:59 Dextrose (Dextrose 50%) 50 ml Q30M PRN IV Hypoglycemia 06/26/19 05:30 07/21/19 21:59 Insulin Aspart (NovoLOG) Q6HR SUBQ 06/26/19 06:00 07/22/19 00:00 Iron Sucrose 100 mg/Sodium Chloride 60 ml @ 240 mls/hr BEDTIME IV 06/26/19 21:00 06/29/19 21:14 Levetiracetam (Keppra) 500 mg Q12HR GT 06/26/19 09:00 07/22/19 08:59 06/26/19 08:50 Meropenem 1 gm/ Sodium Chloride 55 ml @ 110 mls/hr Q8HR IVPB 06/26/19 14:00 07/01/19 13:59 Pantoprazole (Protonix) 40 mg Q12HR IVP 06/26/19 09:00 07/22/19 06:29 06/26/19 08:50 Polyethylene Glycol (Miralax) 17 gm PRN PRN GT Constipation 06/26/19 05:45 07/21/19 05:44 Sodium Citrate (Bicitra) 45 ml EVERY 6 HOURS ORAL 06/26/19 06:00 07/23/19 14:14 Laboratory Tests 06/26/19 07:35: White Blood Count 9.6, Red Blood Count 3.09L, Hemoglobin 8.5L, Hematocrit 25.2L , Mean Corpuscular Volume 81, Mean Corpuscular Hemoglobin 27.5, Mean Corpuscular Hemoglobin Concent 33.8, Red Cell Distribution Width 14.2, Platelet Count 521H, Mean Platelet Volume 6.1L, Neutrophils (%) (Auto) 76.3H, Lymphocytes (%) (Auto) 13.8L, Monocytes (%) (Auto) 6.9, Eosinophils (%) (Auto) 2.6, Basophils (%) (Auto) 0.4, Sodium Level 146H, Potassium Level 3.6, Chloride Level 109H, Carbon Dioxide Level 22, Anion Gap 15, Blood Urea Nitrogen 12, Creatinine 0.6, Estimat Glomerular Filtration Rate > 60, Glucose Level 291H, Calcium Level 8.5, Phosphorus Level 3.2, Magnesium Level 1.9, Total Bilirubin 0.3, Aspartate Amino Transf (AST/SGOT) 14L, Alanine Aminotransferase (ALT/SGPT) 13, Alkaline Phosphatase 82, C-Reactive Protein, Quantitative 8.1H, Pro-B-Type Natriuretic Peptide 1628H, Total Protein 5.6L, Albumin 1.6L, Globulin 4.0, Albumin/Globulin Ratio 0.4L Height (Feet): 5 Height (Inches): 7.00 Weight (Pounds): 164 General Appearance: no apparent distress EENT: other - Vented Cardiovascular: normal rate Respiratory/Chest: decreased breath sounds Abdomen: soft Ricky Green MD Jun 26, 2019 11:11
--- NOTE | 2019-06-26 11:58 | NUR ---
CASE MANAGEMENT: REVIEW 06/26/2019 SI: SEPSIS. T 98.5 HR 62 RR 22 B/P 130/79 SATS 99% ON MECH VENT FIO2 30% LABS: HGB 8.5 HCT 25.2 NA 146 CL 109 GLU 291 AST 14 IS:DEXTROSE IV @ 50 mL/HR BICITRA PO Q6H VENOFER IV QHS KEPPRA GT Q12H INSULIN ASPART SUBQ Q6H MEROPENEM IV Q8H SDU DCP: [facility] PLAN OF CARE: CXR DAILY WOUND CARE >> Cleanse wounds on Buttocks, sacrum, ishium, trochanter with Saline. Apply Therahoney to wounds. Apply Triad Paste periwound to cover erythematous skin. Cover with Optifoam drsgs Daily and prn
--- NOTE | 2019-06-26 12:08 | NUR ---
RD ASSESSMENT & RECOMMENDATIONS SEE CARE ACTIVITY FOR COMPLETE ASSESSMENT DAILY ESTIMATED NEEDS: Needs based on Critical care, wounds 73kg 22-30 kcals/kg 9822-2377 total kcals 1.5-2 g protein/kg 109-146 g total protein 25-30 mL/kg 0373-7193 total fluid mLs NUTRITION DIAGNOSIS: 1) Increased kcal/pro needs R/T wound healing as evidenced by pt admitted w/ multiple wounds including full thickness at posterior neck under collar of trach, sacrum, rt trochanter, and rt ischium. 2) Swallowing difficulty R/T respiratory status as evidenced by pt trach/PEG dep for all nutritional needs. CURRENT TF:Glucerna 1.2 @ 40ml/hr x 24 hrs ENTERAL NUTRITION RECOMMENDATIONS: Glucerna 1.5 @ 50ml/hr x 24 hrs + prosource x1 to provide 1200ml, 1800kcal, 99g + 11g prot, 911ml free water - Rec TF change to Glucerna 1.5 to better meet est kcal and protein needs - Start @ 30ml/hr x 6 hrs, increase by 10ml every 4-6 hrs to goal rate as tolerated - HOB 30-45 degrees/ H2O flush of 180ml q 4 hrs - Add Prosource 1pkt daily ADDITIONAL RECOMMENDATIONS: 1. Maintain calibrated bed scale for accurate CBW 2. Wound healing: Add Vit C 500mg QD + ZnSO4 220mg QD x 10 days Add Christian 1pkt BID 3. Monitor lytes daily, replete as needed 4. Consider long acting insulin for improved BG control 5. Add probiotics- +rectal tube
--- NOTE | 2019-06-26 12:11 | Pulmonolgy Critical Care Note ---
Critical Care - Asmt/Plan Problems: (1) Nosocomial pneumonia (2) Severe anemia (3) Ventilator dependent (4) Chronic vegetative state (5) COPD (chronic obstructive pulmonary disease) (6) Feeding by G-tube (7) Diabetes mellitus, type II (8) Cerebral vascular disease (9) Seizure disorder (10) Chronic complete quadriplegia Respiratory: adjust tidal volume, monitor respiratory rate, CXR Cardiac: continue to monitor HR/BP Renal: F/U I&O, check electrolytes Infectious Disease: check cultures Gastrointestinal: continue feedings/current rate Endocrine: monitor blood sugar, check HgA1C Hematologic: monitor H/H, transfuse if hgb<8.5 Neurologic: keep patient comfortable Time Spent (Minutes): 40 Notes 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, 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 Discussed with: nurses, consultants, correctional counselor/case managerretail manager in training - Objective Last 24 Hour Vital Signs Date Time Temp Pulse Resp B/P (MAP) Pulse Ox O2 Delivery O2 Flow Rate FiO2 06/26/19 10:43 61 27 30 06/26/19 08:50 57 18 30 06/26/19 08:00 62 06/26/19 08:00 98.5 61 22 130/79 (96) 99 61 06/26/19 08:00 30 06/26/19 08:00 Mechanical Ventilator 06/26/19 07:12 54 31 30 06/26/19 05:27 59 30 30 30 30 06/26/19 05:00 61 26 130/84 (99) 99 06/26/19 04:00 30 06/26/19 04:00 65 06/26/19 04:00 98.3 64 32 125/74 (91) 98 06/26/19 04:00 Mechanical Ventilator 06/26/19 03:00 65 33 119/71 (87) 97 06/26/19 02:30 65 34 30 30 30 06/26/19 02:00 65 29 120/71 (87) 99 06/26/19 01:00 61 33 133/70 (91) 100 06/26/19 00:56 62 26 30 30 30 06/26/19 00:00 Mechanical Ventilator 06/26/19 00:00 97.8 62 30 136/76 (96) 100 06/26/19 00:00 62 06/25/19 23:18 62 29 30 30 30 06/25/19 23:00 62 30 131/76 (94) 100 2/12/20 22:00 63 29 124/73 (90) 100 06/25/19 21:15 62 30 30 30 30 06/25/19 21:00 98.3 63 30 119/68 (85) 100 06/25/19 20:00 63 26 111/65 (80) 100 06/25/19 20:00 30 06/25/19 20:00 66 06/25/19 20:00 Mechanical Ventilator 06/25/19 19:04 32 32 30 30 30 06/25/19 19:00 99.4 67 30 105/65 (78) 100 06/25/19 18:45 98.3 06/25/19 18:00 67 32 117/74 (88) 100 06/25/19 17:34 99.2 06/25/19 17:00 99.2 68 31 110/74 (86) 100 06/25/19 16:59 69 32 30 06/25/19 16:00 67 31 114/70 (85) 100 06/25/19 16:00 Mechanical Ventilator 06/25/19 16:00 69 06/25/19 16:00 30 06/25/19 15:00 71 33 116/71 (86) 100 06/25/19 14:45 70 33 30 06/25/19 14:00 72 35 124/76 (92) 100 06/25/19 13:00 74 36 128/77 (94) 100 06/25/19 12:55 70 35 30 Status: obtunded Condition: critical HEENT: atraumatic Lungs: clear Heart: HR/BP stable Abdomen: soft, active bowel sounds Extremities: edema Decubiti: location Micro: Microbiology Date/Time Source Procedure Growth Status 06/23/19 18:55 Blood Blood Culture - Preliminary NO GROWTH AFTER 48 HOURS Resulted 06/23/19 18:47 Blood Blood Culture - Preliminary NO GROWTH AFTER 48 HOURS Resulted 06/23/19 13:30 Nasopharynx - Final Complete 06/23/19 13:30 Nasopharynx - Final Complete 06/23/19 13:30 Sputum Gram Stain - Final Complete 06/23/19 13:30 Sputum Culture - Final Escherichia Coli - Esbl Complete Accucheck: 229 Critical Care - Subjective ROS Limited/Unobtainable: Yes Interval Events: got 3 unites of prbc so far Condition: critical EKG Rhythm: Sinus Rhythm FI02: 30 Vent Support Breath Rate: 12 Vent Support Mode: AC Vent Tidal Volume: 500 Sputum Amount: Small PEEP: 5.0 PIP: 32 Tube Feeding Amount: 40 I&O: Intake and Output 06/25/19 06/26/19 19:00 07:00 Intake Total 1710 ml 1395 ml Output Total 1900 ml 1200 ml Balance -190 ml 195 ml Intake Free Water 90 ml IV Total 1180 ml 605 ml Tube Feeding 440 ml 440 ml Blood Product 250 ml Other 100 ml Output Urine Total 1500 ml 1200 ml Stool Total 400 ml # Bowel Movements 3 3 CXR: no change Labs: Laboratory Tests Test 06/26/19 07:35 White Blood Count 9.6 K/UL (4.8-10.8) Red Blood Count 3.09 M/UL (4.70-6.10) L Hemoglobin 8.5 G/DL (14.2-18.0) L Hematocrit 25.2 % (42.0-52.0) L Mean Corpuscular Volume 81 FL (80-99) Mean Corpuscular Hemoglobin 27.5 PG (27.0-31.0) Mean Corpuscular Hemoglobin Concent 33.8 G/DL (32.0-36.0) Red Cell Distribution Width 14.2 % (11.6-14.8) Platelet Count 521 K/UL (150-450) H Mean Platelet Volume 6.1 FL (6.5-10.1) L Neutrophils (%) (Auto) 76.3 % (45.0-75.0) H Lymphocytes (%) (Auto) 13.8 % (20.0-45.0) L Monocytes (%) (Auto) 6.9 % (1.0-10.0) Eosinophils (%) (Auto) 2.6 % (0.0-3.0) Basophils (%) (Auto) 0.4 % (0.0-2.0) Sodium Level 146 MMOL/L (136-145) H Potassium Level 3.6 MMOL/L (3.5-5.1) Chloride Level 109 MMOL/L (98-107) H Carbon Dioxide Level 22 MMOL/L (21-32) Anion Gap 15 mmol/L (5-15) Blood Urea Nitrogen 12 mg/dL (7-18) Creatinine 0.6 MG/DL (0.55-1.30) Estimat Glomerular Filtration Rate > 60 mL/min (>60) Glucose Level 291 MG/DL (74-106) H Calcium Level 8.5 MG/DL (8.5-10.1) Phosphorus Level 3.2 MG/DL (2.5-4.9) Magnesium Level 1.9 MG/DL (1.8-2.4) Total Bilirubin 0.3 MG/DL (0.2-1.0) Aspartate Amino Transf (AST/SGOT) 14 U/L (15-37) L Alanine Aminotransferase (ALT/SGPT) 13 U/L (12-78) Alkaline Phosphatase 82 U/L (46-116) C-Reactive Protein, Quantitative 8.1 mg/dL (0.00-0.90) H Pro-B-Type Natriuretic Peptide 1628 pg/mL (0-125) H Total Protein 5.6 G/DL (6.4-8.2) L Albumin 1.6 G/DL (3.4-5.0) L Globulin 4.0 g/dL Albumin/Globulin Ratio 0.4 (1.0-2.7) L Suzette Wallace MD Jun 26, 2019 12:11
--- NOTE | 2019-06-26 12:32 | GI Initial Consult Note ---
History of Present Illness General Date patient seen: Jun 26, 2019 Time patient seen: 12:24 Reason for Hospitalization: Dyspnea/Respdistress Referring physician: MILAD MACEDO Reason for Consultation: GT REPLACEMENT Present Illness HPI Patient is a 48-year-old male sent in by nursing facility after increased respiratory distress. Patient gradual onset of symptoms.. 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 Prior history of insulin-dependent diabetes. He is normally ventilator and G-tube dependent. GI consulted for abdominal distention, G-tube replacement. ROS limited, patient in the permanent vegetative state. The abdomen was assessed noted to be soft, mildly bloated. G-tube site had minimal leakage, no erythema noted. Laboratory review; hemoglobin 8.5, hematocrit 25.2, INR 1.2, stool occult blood positive. The patient had an upper endoscopy performed in 2014 noted with distal esophagitis, shallow gastric ulcer and gastritis. Home Meds Reported Medications Ergocalciferol (Vitamin D2)* (VITAMIN D*) 50,000 Unit Capsule, 17333 UNIT ORAL ONCE A WEEK for GIVE ON Thursdays04/11/18 Lactulose (LACTULOSE*) 20 Gm/30 Ml Solution, 30 ML GT for HOLD FOR LBM 04/11/18 Levetiracetam (Keppra) 100 Mg/1 Ml Solution, 5 ML GT TWICE A DAY 04/11/18 Ipratropium/Albuterol Sulfate (DuoNeb 0.5-3(2.5)mg/3ml) 3 Ml Ampul.neb, 3 ML HHN Q4HR for HOLD IF HR > 120 04/11/18 Magnesium Hydroxide* (MILK OF MAGNESIA*) 400 Mg/5 Ml Oral.susp, 30 ML GT DAILY 04/11/18 Magnesium Oxide (MAGNESIUM OXIDE) 400 Mg Tablet, 400 MG GT DAILY 04/11/18 Zinc Oxide (SKIN PROTECTANT) 113 Gm Cream..g., 113 GM TP BID for LEFT BUTTOCK. END 05/03/18 04/11/18 Bacitracin Zinc* (BACITRACIN ZINC*) 1 Each Packet, 1 APPLIC TOPIC DAILY for TO PERISTOMAL SITE. END 05/0304/11/18 Esomeprazole Magnesium (NEXIUM) 40 Mg Capsule.dr, 40 MG GT BID, CAP 08/07/17 Multivit-Min/Iron Fum/Folic AC (Ouoop-Hxgfiqu-Eeoaupcq Tablet) 1 Each Tablet, 1 EACH GT DAILY, TAB 08/07/17 Metformin Hcl* (METFORMIN HCL*) 1,000 Mg Tablet, 1000 MG GT BID, TAB 04/30/17 Cranberry Extract (CRANBERRY JUICE POWDER) 425 Mg Capsule, 425 MG GT DAILY, CAP 04/30/17 Acetaminophen 160MG/5ML* (ACETAMINOPHEN*) 160 Mg/5 Ml Elixir, 20.3 ML GT Q4HR PRN for PAIN 1-3 OR TEMP > 100.4 04/30/17 Insulin Glargine (Lantus) 100 Unit/1 Ml Vial, 24 UNITS SUBQ BEDTIME 12/19/15 Insulin Lispro (HUMALOG) 100 Unit/1 Ml Cartridge, 0 SUBQ, #1 UNITS 0 Refills 06/28/15 Heparin Sod (Porcine) (HEPARIN SODIUM*) 5 000/1 Ml Vial, 5000 UNITS SUBQ EVERY 12 HOURS, VIAL 03/27/15 Med list reviewed/reconciled: Yes Allergies: Coded Allergies: NO KNOWN DRUG ALLERGIES (Unverified Allergy, Unknown, 06/28/15) Patient History Limited by: medical condition History Provided By: Medical Record PMH Narrative Past Medical History: old chart reviewed Reviewed Nursing Documentation: PMH: Agreed; PSxH: Agreed Nursing Documentation-PMH Past Medical History: No History, Except For Hx Cardiac Problems: Yes Hx Hypertension: Yes Hx Asthma: Yes Hx COPD: Yes Hx Diabetes: Yes Hx Cancer: No Hx Gastrointestinal Problems: Yes - dysphagia Hx Neurological Problems: Yes - Persistent vegetative state Hx Cerebrovascular Accident: Yes Hx Seizures: Yes Hx Epilepsy: Yes Hx Paralysis: Yes Hx Memory Loss: Yes Hx Concentration Difficulty: Yes Hx Speech Problem: Yes - tracheostomy Hx Aphasia: Yes Hx Dysphasia: Yes Hx Weakness: Yes Review of Systems All Other Systems: limited Physical Exam Vital Signs Date Time Temp Pulse Resp B/P (MAP) Pulse Ox O2 Delivery O2 Flow Rate FiO2 06/22/19 06:59 107 27 40 06/22/19 07:00 99/57 (71) 100 06/22/19 08:00 99.1 06/22/19 08:00 Mechanical Ventilator Sp02 EP Interpretation: reviewed Labs Laboratory Tests Test 06/26/19 07:35 White Blood Count 9.6 K/UL (4.8-10.8) Red Blood Count 3.09 M/UL (4.70-6.10) L Hemoglobin 8.5 G/DL (14.2-18.0) L Hematocrit 25.2 % (42.0-52.0) L Mean Corpuscular Volume 81 FL (80-99) Mean Corpuscular Hemoglobin 27.5 PG (27.0-31.0) Mean Corpuscular Hemoglobin Concent 33.8 G/DL (32.0-36.0) Red Cell Distribution Width 14.2 % (11.6-14.8) Platelet Count 521 K/UL (150-450) H Mean Platelet Volume 6.1 FL (6.5-10.1) L Neutrophils (%) (Auto) 76.3 % (45.0-75.0) H Lymphocytes (%) (Auto) 13.8 % (20.0-45.0) L Monocytes (%) (Auto) 6.9 % (1.0-10.0) Eosinophils (%) (Auto) 2.6 % (0.0-3.0) Basophils (%) (Auto) 0.4 % (0.0-2.0) Sodium Level 146 MMOL/L (136-145) H Potassium Level 3.6 MMOL/L (3.5-5.1) Chloride Level 109 MMOL/L (98-107) H Carbon Dioxide Level 22 MMOL/L (21-32) Anion Gap 15 mmol/L (5-15) Blood Urea Nitrogen 12 mg/dL (7-18) Creatinine 0.6 MG/DL (0.55-1.30) Estimat Glomerular Filtration Rate > 60 mL/min (>60) Glucose Level 291 MG/DL (74-106) H Calcium Level 8.5 MG/DL (8.5-10.1) Phosphorus Level 3.2 MG/DL (2.5-4.9) Magnesium Level 1.9 MG/DL (1.8-2.4) Total Bilirubin 0.3 MG/DL (0.2-1.0) Aspartate Amino Transf (AST/SGOT) 14 U/L (15-37) L Alanine Aminotransferase (ALT/SGPT) 13 U/L (12-78) Alkaline Phosphatase 82 U/L (46-116) C-Reactive Protein, Quantitative 8.1 mg/dL (0.00-0.90) H Pro-B-Type Natriuretic Peptide 1628 pg/mL (0-125) H Total Protein 5.6 G/DL (6.4-8.2) L Albumin 1.6 G/DL (3.4-5.0) L Globulin 4.0 g/dL Albumin/Globulin Ratio 0.4 (1.0-2.7) L General Appearance: no apparent distress Head: normocephalic Neck: supple, tracheotomy Respiratory: normal breath sounds Gastrointestinal: gt Rectal: deferred Skin: normal inspection, normal color, no rash Lymphatic: normal inspection, no adenopathy Current Medications Current Medications Medications (Trade) Dose Ordered Sig/Tony Route PRN Reason Start Time Stop Time Status Last Admin Dose Admin Acetaminophen (Tylenol) 650 mg Q4H PRN GT Mild Pain/Temp > 100.5 06/26/19 05:45 07/22/19 05:44 Chlorhexidine Gluconate (Kay-Hex 2%) 1 applic DAILY@2000 TOPIC 06/26/19 20:00 07/22/19 19:59 Dextrose 1,000 ml @ 50 mls/hr Q20H IV 06/26/19 05:30 07/25/19 08:59 Dextrose (Dextrose 50%) 25 ml Q30M PRN IV Hypoglycemia 06/26/19 05:30 07/21/19 21:59 Dextrose (Dextrose 50%) 50 ml Q30M PRN IV Hypoglycemia 06/26/19 05:30 07/21/19 21:59 Insulin Aspart (NovoLOG) Q6HR SUBQ 06/26/19 06:00 07/22/19 00:00 Iron Sucrose 100 mg/Sodium Chloride 60 ml @ 240 mls/hr BEDTIME IV 06/26/19 21:00 06/29/19 21:14 Levetiracetam (Keppra) 500 mg Q12HR GT 06/26/19 09:00 07/22/19 08:59 06/26/19 08:50 Meropenem 1 gm/ Sodium Chloride 55 ml @ 110 mls/hr Q8HR IVPB 06/26/19 14:00 07/01/19 13:59 Pantoprazole (Protonix) 40 mg Q12HR IVP 06/26/19 09:00 07/22/19 06:29 06/26/19 08:50 Polyethylene Glycol (Miralax) 17 gm PRN PRN GT Constipation 06/26/19 05:45 07/21/19 05:44 Sodium Citrate (Bicitra) 45 ml EVERY 6 HOURS ORAL 06/26/19 06:00 07/23/19 14:14 GI: Plan Problems: (1) Iron deficiency anemia (2) Severe anemia (3) Feeding by G-tube (4) Ventilator dependent (5) Chronic vegetative state Plan Plan to replace gastrostomy tube at bedside. AP CT evaluate for pancreatitis We will consider endoscopy given patient presented with hemoglobin 6.9 and occult blood stool positive, repeat OB stool for now. Monitor H&H, as needed transfusions PPI repeat lipase levels for tomorrow, obtain lipid panel We will follow with additional recommendations Discussed with Dr. Mendoza. Thank you for this patient referral, we will follow. The patient was seen and examined at bedside and all new and available data was reviewed in the patients chart. I agree with the above findings, impression and plan. (Patient seen earlier today. Signature stamp does not reflect patient encounter time.). - MD Amarilis WeinerClearsky [facility] [employer]INE OPERATOR Jun 26, 2019 12:32
[2019-06-26] MEDS ORDERED: Omnipaque-300 100ml vial INJ PRN (13:00)
--- NOTE | 2019-06-26 14:02 | NUR ---
NURSE NOTES: JORY CONNOLLY N.P CAME TO SEE THE PT AND REMOVED OLD GTF AND INSERT A NEW GTF.PT TOLERATED WELL PROCEDURE.JORY Jaimes ORDER KUB , AWAITING FOR X-RAY TECH TO COME AND THE KUB PER ORDERS. WILL CONT TO MONITOR.
--- NOTE | 2019-06-26 19:05 | NUR ---
HAND-OFF: Report given to .RODERICK JACKSON.
--- NOTE | 2019-06-26 19:06 | NUR ---
NURSE NOTES: received pt from Marcus RN pt is resting on the bed, obtunded and awake. pt is on vent with O2sat at 99%. no SOB no respiratory distress. rectal tube in place, byrnes cath is in place draining well with gravity. Right subclavian TLC is intact, patent, and intact. D5 W @ 50cc is running at this moment. Gtube site is intact, patent, and intact. side rails are padded. bed at the lowest position, alarmed, and locked. call light within reach. will continue to monitor pt with plan of care.
[2019-06-26] MEDS: Dyna-Hex 2% Top Sol 2oz TOPIC SCH (20:25)
[2019-06-26] MEDS: Iron Sucrose 100 MG in NS 55 ML IV SCH (20:26)
--- NOTE | 2019-06-26 20:52 | NUR ---
NURSE NOTES: pt went down to take CT with contrast with Jonas JACKSON
[2019-06-26] MEDS: Enalapril 2.5mg tab ORAL SCH (21:28)
--- NOTE | 2019-06-26 21:37 | Diagnostic Imaging Report ---
INDICATION: Abdominal pain TECHNIQUE: Continuous helical transaxial imaging of the abdomen and pelvis was obtained from the lung bases to the pubic symphysis during intravenous contrast administration. Coronal 2-D reformats were also obtained. Study obtained in a Siemens sensation [address] Automatic Exposure Control was utilized. Total Dose length Product (DLP): 592.[address] Dose Index Volume (CTDIvol): 10.3 mGy COMPARISON: 08/07/2017 FINDINGS: Lungs: There are Central predominant airspace and the interstitial opacities within the visualized lung bases. Trace bilateral pleural effusions are noted. The heart is enlarged. There is artifact from the patient's arms limiting evaluation of the lower chest and upper abdomen.. Liver: Unremarkable Gallbladder/biliary system: No gallstones are identified. There is no evidence of intrahepatic or extrahepatic biliary ductal dilatation. Spleen: Unremarkable Pancreas: Unremarkable Kidneys/Bladder: There is mild left hydroureteronephrosis. There is a 5 mm stone in the left UPJ and a 7 mm stone a few centimeters below this within the proximal ureter. A right renal cyst is present measuring 2.5 cm.. Adrenal glands: Unremarkable Aorta/IVC: Unremarkable Bowel: Gastrostomy tube is present. Bowel gas pattern appears nonobstructive. There is a rectal tube present. There is a moderate amount of feces just above the tube in the rectosigmoid colon. Peritoneum: There is a trace amount of ascites. There is also some retroperitoneal stranding especially in the pelvis, nonspecific in nature. Bones: Bones are osteopenic. Degenerative arthrosis of both hips and sacroiliac joints noted. There is evidence of AVN involving both hips with the areas of sclerosis and curvilinear densities typical for this diagnosis. Findings were noted previously also. IMPRESSION: Two proximal intraureteral stones measuring 7 and 5 mm associated with mild hydroureteronephrosis. Trace ascites. Mixed interstitial airspace opacities within the lung bases nonspecific. Consider pneumonia or CHF. Trace bilateral pleural effusions Cardiomegaly Gastrostomy and Waddell catheter in good position. Rectal tube noted. Bilateral AVN of the hips. Arthrosis of both sacral iliac joints and hips. Generalized osteopenia. Other incidental findings as above [facility] has communicated the preliminary results to the Emergency Department. Their findings are largely concordant with this report. The CT scanner at [facility] is accredited by the [employer] and the scans are performed using dose optimization techniques as appropriate to a performed exam including Automatic Exposure control.
[2019-06-27] VITALS: BP 124/75
--- NOTE | 2019-06-27 | NUR ---
NURSE NOTES: oral care given, repositioned pt q 2hrs, no sob noted at this moment. call light within reach.
[2019-06-27] MEDS: Sodium Citrate 30ml ORAL SCH ×2 (00:36→05:13)
[2019-06-27] MEDS: NovoLOG Insulin Flexpen SUBQ SCH ×5 (00:41→17:47)
--- NOTE | 2019-06-27 01:00 | Progress Note ---
DATE: 06/26/2019 SUBJECTIVE: The patient awake, alert, afebrile, and hemodynamically stable. PHYSICAL EXAMINATION: VITAL SIGNS: Blood pressure 121/76, pulse 57, respirations 23, temperature 99.3. HEENT: Eyes were normal. ENT, mucous membranes were moist and intact. NECK: Supple with no JVD without lymph nodes. Tracheostomy site is clean. LUNGS: Clear without rhonchi, rales, or wheezing. HEART: Normal sounds with regular beats. ABDOMEN: Soft and nontender with normal bowel sounds. EXTREMITIES: Warm without cyanosis, clubbing, or edema. LABORATORY AND DIAGNOSTIC DATA: Hemoglobin is 8.5, hematocrit 25.2 with MCV of 81, WBC of 9.6, and platelets is 521. BUN and creatinine are 12 and 0.6 respectively. His sodium is 143, potassium 3.6, chloride 109, CO2 32. His calcium is 8.5 and phosphorus is 3.2 and magnesium is 1.9. CRP is 8.1, proBNP 1628. Venous duplex scan was negative for DVT, infiltrate. IMPRESSION: The patient clinically has improved. His imaging study remained unchanged. WBC declined. The patient has bradycardia. We will continue with IV antibiotics. The patient is on meropenem 1 g IV piggyback q. 8 h plus respiratory therapy, however, his proBNP revealed the patient has further congestive heart failure. Enalapril 2.5 mg twice a day will be given as well as Aldactone 25 mg daily. Repeat laboratory tests will be done in the morning. Liset Wallace M.D. DR: Papi JOB#: [id number] CC:
[2019-06-27 04:00] VITALS: BP 119/70
[2019-06-27] MEDS: Meropenem 1 GM in NS 55 ML IVPB SCH ×3 (05:13→22:12)
[2019-06-27 05:36] LABS: HEMATOCRIT 23.2 % (42.0-52.0); HEMOGLOBIN 7.9 G/DL (14.2-18.0); MEAN CORPUSCULAR VOLUME 81 FL (80-99); PLATELET COUNT 529 K/UL (150-450); RED BLOOD COUNT 2.86 M/UL (4.70-6.10); WHITE BLOOD COUNT 10.9 K/UL (4.8-10.8)
[2019-06-27 06:02] LABS: AMYLASE 154 U/L (25-115)
[2019-06-27 06:19] LABS: ALANINE AMINOTRANSFERASE 13 U/L (12-78); ALBUMIN 1.5 G/DL (3.4-5.0); ALBUMIN/GLOBULIN RATIO 0.3 (1.0-2.7); ALKALINE PHOSPHATASE 78 U/L (46-116); ANION GAP 12 mmol/L (5-15); BILIRUBIN,TOTAL 0.4 MG/DL (0.2-1.0); BLOOD UREA NITROGEN 7 mg/dL (7-18); CALCIUM 8.5 MG/DL (8.5-10.1); CARBON DIOXIDE 24 MMOL/L (21-32); CHLORIDE 105 MMOL/L (98-107); CHOLESTEROL 64 MG/DL (< 200); CREATININE 0.5 MG/DL (0.55-1.30); HDL CHOLESTEROL 11 MG/DL (40-60); SODIUM 141 MMOL/L (136-145); TRIGLYCERIDES 166 MG/DL (30-150)
[2019-06-27 06:28] LABS: POTASSIUM 2.7 MMOL/L (3.5-5.1)
--- NOTE | 2019-06-27 06:38 | NUR ---
NURSE NOTES: left voice mail to Dr. Green regarding critical value potassium 2.7. will wait for call back.
--- NOTE | 2019-06-27 06:49 | NUR ---
NURSE NOTES: spoke to Carmen for Dr. Solares for HBG 7.9 and HCT 23.2. will wait for call back.
--- NOTE | 2019-06-27 07:10 | NUR ---
HAND-OFF: Report given to Tana JACKSON.
--- NOTE | 2019-06-27 07:12 | NUR ---
NURSE NOTES: Received report from Milli Casiano RN. Patient is in bed, obtunded. Patient has trach, connected to vent with settings AC 12 TV 500, FiO2 30%, and PEEP 5. No respiratory distress noted. Cental line on right chest noted, patent with IV fluids infusing at prescribed rate; dressing clean and intact.GT intact and patent with TF infusing at 30ml/hr, HOB elevated. Will increase accordingly to goal as tolerated. Waddell catheter noted, draining well to gravity with yellow urine output. Rectal tube in place. Bilateral lower extremities noted to have SCD on. No s/s of pain/discomfort at this time. Bed locked, alarmed, and in lowest position, padded side rails up x2, and call light left within reach, Will continue plan of care and will continue to monitor patient.
[2019-06-27 07:53] LABS: PHOSPHORUS 2.5 MG/DL (2.5-4.9)
[2019-06-27 08:00] VITALS: BP 118/75
[2019-06-27] MEDS: Enalapril 2.5mg tab ORAL SCH ×2 (08:08→20:52)
[2019-06-27] MEDS: Pantoprazole Inj IVP SCH ×2 (08:08→20:26)
--- NOTE | 2019-06-27 08:54 | Pulmonolgy Critical Care Note ---
Critical Care - Asmt/Plan Problems: (1) Nosocomial pneumonia (2) Severe anemia (3) Ventilator dependent (4) Chronic vegetative state (5) COPD (chronic obstructive pulmonary disease) (6) Feeding by G-tube (7) Diabetes mellitus, type II (8) Cerebral vascular disease (9) Seizure disorder (10) Chronic complete quadriplegia Respiratory: monitor respiratory rate, adjust FIO2, CXR Cardiac: continue to monitor HR/BP Renal: F/U I&O, keep IV fluid Infectious Disease: check cultures Gastrointestinal: continue feedings/current rate Endocrine: monitor blood sugar, check TSH, check HgA1C Neurologic: PRN Morphine Prophylaxis: Heparin Time Spent (Minutes): 40 Notes Reviewed: cardio, renal Critical Care - Objective Last 24 Hour Vital Signs Date Time Temp Pulse Resp B/P (MAP) Pulse Ox O2 Delivery O2 Flow Rate FiO2 06/27/19 08:08 118/77 06/27/19 07:52 67 25 30 06/27/19 05:05 64 27 30 06/27/19 04:00 99.7 73 28 119/70 (86) 97 73 06/27/19 04:00 30 06/27/19 04:00 Mechanical Ventilator 06/27/19 03:33 66 06/27/19 03:20 58 25 30 06/27/19 01:43 65 27 30 06/27/19 00:00 Mechanical Ventilator 06/27/19 00:00 99.0 61 25 124/75 (91) 98 61 06/26/19 23:28 56 26 30 06/26/19 23:27 62 06/26/19 21:28 110/65 06/26/19 21:19 58 28 30 06/26/19 20:00 Mechanical Ventilator 06/26/19 20:00 53 06/26/19 20:00 30 06/26/19 19:14 62 31 30 06/26/19 19:14 62 31 97 Mechanical Ventilator 40 06/26/19 17:17 58 23 30 06/26/19 16:00 30 06/26/19 16:00 99.3 57 21 121/75 (90) 99 57 06/26/19 16:00 57 06/26/19 16:00 Mechanical Ventilator 06/26/19 15:03 57 26 30 06/26/19 12:38 60 31 30 06/26/19 12:00 30 06/26/19 12:00 58 06/26/19 12:00 99.1 74 26 128/78 (95) 98 74 06/26/19 12:00 Mechanical Ventilator 06/26/19 10:43 61 27 30 Condition: critical HEENT: atraumatic Neck: full ROM Lungs: chest wall tender Heart: HR/BP stable Abdomen: soft, active bowel sounds, feeding tube Extremities: no C/C/E Decubiti: location Accucheck: 243 Critical Care - Subjective ROS Limited/Unobtainable: Yes Condition: critical EKG Rhythm: Sinus Rhythm FI02: 30 Vent Support Breath Rate: 12 Vent Support Mode: AC Vent Tidal Volume: 500 Sputum Amount: Small PEEP: 5.0 PIP: 35 Tube Feeding Amount: 40 I&O: Intake and Output 06/26/19 06/27/19 19:00 07:00 Intake Total 1525 ml 900 ml Output Total 1200 ml 1120 ml Balance 325 ml -220 ml Intake Free Water 600 ml 50 ml IV Total 605 ml 490 ml Tube Feeding 320 ml 360 ml Output Urine Total 1100 ml 1100 ml Stool Total 100 ml 20 ml # Bowel Movements 3 100 Labs: Laboratory Tests Test 06/27/19 03:15 06/27/19 03:30 Stool Occult Blood Pending White Blood Count 10.9 K/UL (4.8-10.8) H Red Blood Count 2.86 M/UL (4.70-6.10) L Hemoglobin 7.9 G/DL (14.2-18.0) L Hematocrit 23.2 % (42.0-52.0) L Mean Corpuscular Volume 81 FL (80-99) Mean Corpuscular Hemoglobin 27.6 PG (27.0-31.0) Mean Corpuscular Hemoglobin Concent 33.9 G/DL (32.0-36.0) Red Cell Distribution Width 14.0 % (11.6-14.8) Platelet Count 529 K/UL (150-450) H Mean Platelet Volume 5.6 FL (6.5-10.1) L Neutrophils (%) (Auto) % (45.0-75.0) Lymphocytes (%) (Auto) % (20.0-45.0) Monocytes (%) (Auto) % (1.0-10.0) Eosinophils (%) (Auto) % (0.0-3.0) Basophils (%) (Auto) % (0.0-2.0) Sodium Level 141 MMOL/L (136-145) Potassium Level 2.7 MMOL/L (3.5-5.1) *L Chloride Level 105 MMOL/L (98-107) Carbon Dioxide Level 24 MMOL/L (21-32) Anion Gap 12 mmol/L (5-15) Blood Urea Nitrogen 7 mg/dL (7-18) Creatinine 0.5 MG/DL (0.55-1.30) L Estimat Glomerular Filtration Rate > 60 mL/min (>60) Glucose Level 247 MG/DL (74-106) H Calcium Level 8.5 MG/DL (8.5-10.1) Phosphorus Level 2.5 MG/DL (2.5-4.9) Magnesium Level 1.5 MG/DL (1.8-2.4) L Total Bilirubin 0.4 MG/DL (0.2-1.0) Aspartate Amino Transf (AST/SGOT) Pending Alanine Aminotransferase (ALT/SGPT) 13 U/L (12-78) Alkaline Phosphatase 78 U/L (46-116) Pro-B-Type Natriuretic Peptide 1238 pg/mL (0-125) H Total Protein 6.2 G/DL (6.4-8.2) L Albumin 1.5 G/DL (3.4-5.0) L Globulin 4.7 g/dL Albumin/Globulin Ratio 0.3 (1.0-2.7) L Triglycerides Level 166 MG/DL (30-150) H Cholesterol Level 64 MG/DL (< 200) LDL Cholesterol 37 mg/dL (<100) HDL Cholesterol 11 MG/DL (40-60) L Cholesterol/HDL Ratio 5.8 (3.3-4.4) H Amylase Level 154 U/L (25-115) H Lipase 1469 U/L (73-393) H Suzette Wallace MD Jun 27, 2019 08:54
--- NOTE | 2019-06-27 08:57 | General Progress Note ---
Assessment/Plan Assessment/Plan: GI: Plan Problems: (1) Iron deficiency anemia (2) Severe anemia (3) Feeding by G-tube (4) Ventilator dependent (5) Chronic vegetative state Plan AP CT evaluate for pancreatitis>>>reviewed We will consider endoscopy given patient presented with hemoglobin 6.9 and occult blood stool positive, repeat OB stool for now. Monitor H&H, as needed transfusions PPI repeat lipase levels for tomorrow, We will follow with additional recommendations bowel regimen replace K Thank you for this patient referral, we will follow. Subjective ROS Limited/Unobtainable: No Allergies: Coded Allergies: NO KNOWN DRUG ALLERGIES (Unverified Allergy, Unknown, 06/28/15) Objective Last 24 Hour Vital Signs Date Time Temp Pulse Resp B/P (MAP) Pulse Ox O2 Delivery O2 Flow Rate FiO2 06/27/19 08:08 118/77 06/27/19 07:52 67 25 30 06/27/19 05:05 64 27 30 06/27/19 04:00 99.7 73 28 119/70 (86) 97 73 06/27/19 04:00 30 06/27/19 04:00 Mechanical Ventilator 06/27/19 03:33 66 06/27/19 03:20 58 25 30 06/27/19 01:43 65 27 30 06/27/19 00:00 Mechanical Ventilator 06/27/19 00:00 99.0 61 25 124/75 (91) 98 61 06/26/19 23:28 56 26 30 06/26/19 23:27 62 06/26/19 21:28 110/65 06/26/19 21:19 58 28 30 06/26/19 20:00 Mechanical Ventilator 06/26/19 20:00 53 06/26/19 20:00 30 06/26/19 19:14 62 31 30 06/26/19 19:14 62 31 97 Mechanical Ventilator 40 06/26/19 17:17 58 23 30 06/26/19 16:00 30 06/26/19 16:00 99.3 57 21 121/75 (90) 99 57 06/26/19 16:00 57 06/26/19 16:00 Mechanical Ventilator 06/26/19 15:03 57 26 30 06/26/19 12:38 60 31 30 06/26/19 12:00 30 06/26/19 12:00 58 06/26/19 12:00 99.1 74 26 128/78 (95) 98 74 06/26/19 12:00 Mechanical Ventilator 06/26/19 10:43 61 27 30 Intake and Output 06/26/19 06/27/19 19:00 07:00 Intake Total 1525 ml 900 ml Output Total 1200 ml 1120 ml Balance 325 ml -220 ml Intake Free Water 600 ml 50 ml IV Total 605 ml 490 ml Tube Feeding 320 ml 360 ml Output Urine Total 1100 ml 1100 ml Stool Total 100 ml 20 ml # Bowel Movements 3 100 Laboratory Tests 06/27/19 03:15: Stool Occult Blood [Pending] 06/27/19 03:30: White Blood Count 10.9H, Red Blood Count 2.86L, Hemoglobin 7.9L, Hematocrit 23.2L, Mean Corpuscular Volume 81, Mean Corpuscular Hemoglobin 27.6, Mean Corpuscular Hemoglobin Concent 33.9, Red Cell Distribution Width 14.0, Platelet Count 529H, Mean Platelet Volume 5.6L, Neutrophils (%) (Auto) , Lymphocytes (%) (Auto) , Monocytes (%) (Auto) , Eosinophils (%) (Auto) , Basophils (%) (Auto) , Sodium Level 141, Potassium Level 2.7*L, Chloride Level 105, Carbon Dioxide Level 24, Anion Gap 12, Blood Urea Nitrogen 7, Creatinine 0.5L, Estimat Glomerular Filtration Rate > 60, Glucose Level 247H, Calcium Level 8.5, Phosphorus Level 2.5, Magnesium Level 1.5L, Total Bilirubin 0.4, Aspartate Amino Transf (AST/SGOT) [Pending], Alanine Aminotransferase (ALT/SGPT) 13, Alkaline Phosphatase 78, Pro-B-Type Natriuretic Peptide 1238H, Total Protein 6.2L, Albumin 1.5L, Globulin 4.7, Albumin/Globulin Ratio 0.3L, Triglycerides Level 166H, Cholesterol Level 64, LDL Cholesterol 37, HDL Cholesterol 11L, Cholesterol/HDL Ratio 5.8H, Amylase Level 154H, Lipase 1469H Height (Feet): 5 Height (Inches): 7.00 Weight (Pounds): 162 General Appearance: lethargic EENT: normal ENT inspection Neck: supple Cardiovascular: normal rate Respiratory/Chest: decreased breath sounds Abdomen: normal bowel sounds, non tender, soft Extremities: non-tender Vosoghi,Yogi MD Jun 27, 2019 08:57
[2019-06-27] MEDS ORDERED: Spironolactone 25mg tab ORAL SCH (09:00)
[2019-06-27 09:17] LABS: ASPARTATE AMINO TRANSFERASE 17 U/L (15-37)
[2019-06-27] MEDS: Docusate 100mg/10ml Liq NG SCH ×2 (09:59→17:42)
--- NOTE | 2019-06-27 11:01 | NUR ---
RADIOLOGY DEPT., CHEST X-RAY DONE.-P.DYE
--- NOTE | 2019-06-27 11:02 | Nephrology Progress Note ---
Assessment/Plan Problem List: (1) Metabolic acidosis (2) Acute blood loss anemia (3) Hypokalemia (4) Chronic respiratory failure Assessment Metabolic Acidosis HypoKalemia HyperNatremia Severe Anemia Other Conditions: (1) Nosocomial pneumonia (2) Sepsis (3) Ventilator dependent (4) Chronic vegetative state (5) COPD (chronic obstructive pulmonary disease) (6) Feeding by G-tube (7) Diabetes mellitus, type II (8) Cerebral vascular disease (9) Seizure disorder (10) Chronic complete quadriplegia Plan K supplement as needed mag supplement DC Bicitra GT D5W IV fluid Protonix IV watch H&H Transfusion as needed per orders Subjective ROS Limited/Unobtainable: Yes Objective Objective Last 24 Hour Vital Signs Date Time Temp Pulse Resp B/P (MAP) Pulse Ox O2 Delivery O2 Flow Rate FiO2 06/27/19 09:15 69 31 30 06/27/19 08:08 118/77 06/27/19 08:00 30 06/27/19 08:00 99.0 65 20 118/75 (89) 97 06/27/19 08:00 Mechanical Ventilator 06/27/19 07:52 67 25 30 06/27/19 07:43 69 06/27/19 05:05 64 27 30 06/27/19 04:00 99.7 73 28 119/70 (86) 97 73 06/27/19 04:00 30 06/27/19 04:00 Mechanical Ventilator 06/27/19 03:33 66 06/27/19 03:20 58 25 30 06/27/19 01:43 65 27 30 06/27/19 00:00 Mechanical Ventilator 06/27/19 00:00 99.0 61 25 124/75 (91) 98 61 06/26/19 23:28 56 26 30 06/26/19 23:27 62 06/26/19 21:28 110/65 06/26/19 21:19 58 28 30 06/26/19 20:00 Mechanical Ventilator 06/26/19 20:00 53 06/26/19 20:00 30 06/26/19 19:14 62 31 30 06/26/19 19:14 62 31 97 Mechanical Ventilator 40 06/26/19 17:17 58 23 30 06/26/19 16:00 30 06/26/19 16:00 99.3 57 21 121/75 (90) 99 57 2/13/20 16:00 57 06/26/19 16:00 Mechanical Ventilator 06/26/19 15:03 57 26 30 06/26/19 12:38 60 31 30 06/26/19 12:00 30 06/26/19 12:00 58 06/26/19 12:00 99.1 74 26 128/78 (95) 98 74 06/26/19 12:00 Mechanical Ventilator Intake and Output 06/26/19 06/27/19 19:00 07:00 Intake Total 1525 ml 900 ml Output Total 1200 ml 1120 ml Balance 325 ml -220 ml Intake Free Water 600 ml 50 ml IV Total 605 ml 490 ml Tube Feeding 320 ml 360 ml Output Urine Total 1100 ml 1100 ml Stool Total 100 ml 20 ml # Bowel Movements 3 100 Current Medications Medications (Trade) Dose Ordered Sig/Tony Route PRN Reason Start Time Stop Time Status Last Admin Dose Admin Acetaminophen (Tylenol) 650 mg Q4H PRN GT Mild Pain/Temp > 100.5 06/26/19 05:45 07/22/19 05:44 Barium Sulfate (Readi-Cat 2) 450 ml NOW PRN ORAL Radiology Procedure 06/26/19 13:00 06/28/19 12:52 Chlorhexidine Gluconate (Kay-Hex 2%) 1 applic DAILY@2000 TOPIC 06/26/19 20:00 07/22/19 19:59 06/26/19 20:25 Dextrose 1,000 ml @ 50 mls/hr Q20H IV 06/26/19 05:30 07/25/19 08:59 06/27/19 00:36 Dextrose (Dextrose 50%) 25 ml Q30M PRN IV Hypoglycemia 06/26/19 05:30 07/21/19 21:59 Dextrose (Dextrose 50%) 50 ml Q30M PRN IV Hypoglycemia 06/26/19 05:30 07/21/19 21:59 Docusate Sodium (Colace) 100 mg TWICE A DAY NG 06/27/19 09:00 07/27/19 08:59 06/27/19 09:59 Enalapril Maleate (Vasotec) 2.5 mg EVERY 12 HOURS ORAL 06/26/19 21:00 07/26/19 20:59 06/27/19 08:08 Insulin Aspart (NovoLOG) Q6HR SUBQ 06/26/19 06:00 07/22/19 00:00 06/27/19 05:15 Iohexol (OMNIPAQUE-300 100ml) 100 ml NOW PRN INJ Radiology Procedure 06/26/19 13:00 06/28/19 12:52 Iron Sucrose 100 mg/Sodium Chloride 60 ml @ 240 mls/hr BEDTIME IV 06/26/19 21:00 06/29/19 21:14 06/26/19 20:26 Levetiracetam (Keppra) 500 mg Q12HR GT 06/26/19 09:00 07/22/19 08:59 06/27/19 08:08 Meropenem 1 gm/ Sodium Chloride 55 ml @ 110 mls/hr Q8HR IVPB 06/26/19 14:00 07/01/19 13:59 06/27/19 05:13 Pantoprazole (Protonix) 40 mg Q12HR IVP 06/26/19 09:00 07/22/19 06:29 06/27/19 08:08 Polyethylene Glycol (Miralax) 17 gm BEDTIME ORAL 06/27/19 21:00 07/27/19 20:59 Polyethylene Glycol (Miralax) 17 gm PRN PRN GT Constipation 06/26/19 05:45 07/21/19 05:44 Potassium Chloride 100 ml @ 50 mls/hr Q2H IVPB 06/27/19 08:00 06/27/19 13:59 06/27/19 10:02 Sodium Citrate (Bicitra) 45 ml EVERY 6 HOURS ORAL 06/26/19 06:00 07/23/19 14:14 06/27/19 05:13 Spironolactone (Aldactone) 25 mg DAILY ORAL 06/27/19 09:00 07/27/19 08:59 06/27/19 08:08 Laboratory Tests 06/27/19 03:15: Stool Occult Blood Negative 06/27/19 03:30: White Blood Count 10.9H, Red Blood Count 2.86L, Hemoglobin 7.9L, Hematocrit 23.2L, Mean Corpuscular Volume 81, Mean Corpuscular Hemoglobin 27.6, Mean Corpuscular Hemoglobin Concent 33.9, Red Cell Distribution Width 14.0, Platelet Count 529H, Mean Platelet Volume 5.6L, Neutrophils (%) (Auto) , Lymphocytes (%) (Auto) , Monocytes (%) (Auto) , Eosinophils (%) (Auto) , Basophils (%) (Auto) , Sodium Level 141, Potassium Level 2.7*L, Chloride Level 105, Carbon Dioxide Level 24, Anion Gap 12, Blood Urea Nitrogen 7, Creatinine 0.5L, Estimat Glomerular Filtration Rate > 60, Glucose Level 247H, Calcium Level 8.5, Phosphorus Level 2.5, Magnesium Level 1.5L, Total Bilirubin 0.4, Aspartate Amino Transf (AST/SGOT) 17, Alanine Aminotransferase (ALT/SGPT) 13, Alkaline Phosphatase 78, Pro-B-Type Natriuretic Peptide 1238H, Total Protein 6.2L, Albumin 1.5L, Globulin 4.7, Albumin/Globulin Ratio 0.3L, Triglycerides Level 166H, Cholesterol Level 64, LDL Cholesterol 37, HDL Cholesterol 11L, Cholesterol /HDL Ratio 5.8H, Amylase Level 154H, Lipase 1469H Height (Feet): 5 Height (Inches): 7.00 Weight (Pounds): 162 General Appearance: mild distress EENT: other - trach-vent Cardiovascular: normal rate Respiratory/Chest: decreased breath sounds Abdomen: distended Ricky Green MD Jun 27, 2019 11:02
[2019-06-27 12:00] VITALS: BP 111/71
--- NOTE | 2019-06-27 12:54 | Diagnostic Imaging Report ---
Indication: Dyspnea Comparison: 06/25/2019 A single view chest radiograph was obtained. Findings: Interstitial and airspace opacities are demonstrated throughout both lung peres predominating on the left side. A right-sided central venous catheter and tracheostomy are again noted unchanged. Heart is enlarged but stable. IMPRESSION: No significant change from the prior exam
--- NOTE | 2019-06-27 13:24 | Infectious Diseases Prog Note ---
Assessment/Plan Assessment/Plan Assessment: Severe Sepsis ESBL E.coli UTI c/w bacteremia Multifocal PNA -06/25 CXR: Bilateral interstitial and airspace disease, left greater than right, again demonstrated. Left-sided pleural effusion is again demonstrated -sp cx ESBL E.coli -u/a wbc tnct, nit neg, leuk +3; ucx >100k ESBL E.coli (S Zosyn, Imi, Amikacin) -06/21 Bcx 06/17 ESBL E.coli (S Zosyn, Imi, Amikacin); 06/23 Bcx NTD -06/21 CXR:.New bilateral patchy airspace opacities in the left midlung an as well as the right upper lung concerning for multifocal pneumonia. Similar retrocardiac atelectasis or consolidation. -influenza sc neg Severe anion gap metabolic acidosis - ?etiology- normal lactic acid, normal Cr- BG levels between 119-170s- r/o DKA vs other Fever, SP Mild leukocytosis HTN asthma COPD persistent vegetative state CVA Dm2 chronic respiratory failure s/p trach/vent dependent Dysphagia s/p GT NH resident Plan: -Continue Meropenem #4 (abx d #09/24) for ESBL UTI and bacteremia and PNA -06/25 SP IV Linezolid #3 -2 SP Tamiflu #2, IV amikacin #2, Cefepime #3 -2 SP flagyl #3 -2 SP Ertapenem x1 -06/21 SP Zosyn x1 -f/u cx -Monitor CBC/CMP, temperatures -f/u Bcx x2, sp cx -GT/trach/ICU care -aspiration precautions -neprho f/u Thank you for this consultation. Will continue to follow along with you. Discussed with RN Subjective Allergies: Coded Allergies: NO KNOWN DRUG ALLERGIES (Unverified Allergy, Unknown, 06/28/15) Subjective afebrile >72 hrs mild leuckocytosis repeat Bcx NTD Objective Vital Signs Last 24 Hour Vital Signs Date Time Temp Pulse Resp B/P (MAP) Pulse Ox O2 Delivery O2 Flow Rate FiO2 06/27/19 11:29 77 19 30 06/27/19 09:15 69 31 30 06/27/19 08:08 118/77 06/27/19 08:00 30 06/27/19 08:00 99.0 65 20 118/75 (89) 97 06/27/19 08:00 Mechanical Ventilator 06/27/19 07:52 67 25 30 06/27/19 07:43 69 06/27/19 05:05 64 27 30 06/27/19 04:00 99.7 73 28 119/70 (86) 97 73 06/27/19 04:00 30 06/27/19 04:00 Mechanical Ventilator 06/27/19 03:33 66 06/27/19 03:20 58 25 30 06/27/19 01:43 65 27 30 06/27/19 00:00 Mechanical Ventilator 06/27/19 00:00 99.0 61 25 124/75 (91) 98 61 06/26/19 23:28 56 26 30 06/26/19 23:27 62 06/26/19 21:28 110/65 06/26/19 21:19 58 28 30 06/26/19 20:00 Mechanical Ventilator 06/26/19 20:00 53 06/26/19 20:00 30 06/26/19 19:14 62 31 30 06/26/19 19:14 62 31 97 Mechanical Ventilator 40 06/26/19 17:17 58 23 30 06/26/19 16:00 30 06/26/19 16:00 99.3 57 21 121/75 (90) 99 57 06/26/19 16:00 57 06/26/19 16:00 Mechanical Ventilator 06/26/19 15:03 57 26 30 Height (Feet): 5 Height (Inches): 7.00 Weight (Pounds): 162 Objective General Appearance: alert, Chronically Ill ENT: dry mucus membranes, other Neck: normal inspection, suppl limited range of motion, tracheotomy Respiratory: normal inspection, no respiratory distress, no wheezing Cardiovascular: regular rate, rhythm, no edema Gastrointestinal: normal bowel sounds, soft, no guarding, no hernia Musculoskeletal: normal range of motion, other - Bilateral upper and lower extremity motor weakness. Skin: no rash Laboratory Tests Test 06/27/19 03:15 06/27/19 03:30 Stool Occult Blood Negative (NEGATIVE) White Blood Count 10.9 K/UL (4.8-10.8) H Red Blood Count 2.86 M/UL (4.70-6.10) L Hemoglobin 7.9 G/DL (14.2-18.0) L Hematocrit 23.2 % (42.0-52.0) L Mean Corpuscular Volume 81 FL (80-99) Mean Corpuscular Hemoglobin 27.6 PG (27.0-31.0) Mean Corpuscular Hemoglobin Concent 33.9 G/DL (32.0-36.0) Red Cell Distribution Width 14.0 % (11.6-14.8) Platelet Count 529 K/UL (150-450) H Mean Platelet Volume 5.6 FL (6.5-10.1) L Neutrophils (%) (Auto) % (45.0-75.0) Lymphocytes (%) (Auto) % (20.0-45.0) Monocytes (%) (Auto) % (1.0-10.0) Eosinophils (%) (Auto) % (0.0-3.0) Basophils (%) (Auto) % (0.0-2.0) Sodium Level 141 MMOL/L (136-145) Potassium Level 2.7 MMOL/L (3.5-5.1) *L Chloride Level 105 MMOL/L (98-107) Carbon Dioxide Level 24 MMOL/L (21-32) Anion Gap 12 mmol/L (5-15) Blood Urea Nitrogen 7 mg/dL (7-18) Creatinine 0.5 MG/DL (0.55-1.30) L Estimat Glomerular Filtration Rate > 60 mL/min (>60) Glucose Level 247 MG/DL (74-106) H Calcium Level 8.5 MG/DL (8.5-10.1) Phosphorus Level 2.5 MG/DL (2.5-4.9) Magnesium Level 1.5 MG/DL (1.8-2.4) L Total Bilirubin 0.4 MG/DL (0.2-1.0) Aspartate Amino Transf (AST/SGOT) 17 U/L (15-37) Alanine Aminotransferase (ALT/SGPT) 13 U/L (12-78) Alkaline Phosphatase 78 U/L (46-116) Pro-B-Type Natriuretic Peptide 1238 pg/mL (0-125) H Total Protein 6.2 G/DL (6.4-8.2) L Albumin 1.5 G/DL (3.4-5.0) L Globulin 4.7 g/dL Albumin/Globulin Ratio 0.3 (1.0-2.7) L Triglycerides Level 166 MG/DL (30-150) H Cholesterol Level 64 MG/DL (< 200) LDL Cholesterol 37 mg/dL (<100) HDL Cholesterol 11 MG/DL (40-60) L Cholesterol/HDL Ratio 5.8 (3.3-4.4) H Amylase Level 154 U/L (25-115) H Lipase 1469 U/L (73-393) H Current Medications Medications (Trade) Dose Ordered Sig/Tony Route PRN Reason Start Time Stop Time Status Last Admin Dose Admin Acetaminophen (Tylenol) 650 mg Q4H PRN GT Mild Pain/Temp > 100.5 06/26/19 05:45 07/22/19 05:44 Barium Sulfate (Readi-Cat 2) 450 ml NOW PRN ORAL Radiology Procedure 06/26/19 13:00 06/28/19 12:52 Chlorhexidine Gluconate (Kay-Hex 2%) 1 applic DAILY@2000 TOPIC 06/26/19 20:00 07/22/19 19:59 06/26/19 20:25 Dextrose 1,000 ml @ 50 mls/hr Q20H IV 06/26/19 05:30 07/25/19 08:59 06/27/19 00:36 Dextrose (Dextrose 50%) 25 ml Q30M PRN IV Hypoglycemia 06/26/19 05:30 07/21/19 21:59 Dextrose (Dextrose 50%) 50 ml Q30M PRN IV Hypoglycemia 06/26/19 05:30 07/21/19 21:59 Docusate Sodium (Colace) 100 mg TWICE A DAY NG 06/27/19 09:00 07/27/19 08:59 06/27/19 09:59 Enalapril Maleate (Vasotec) 2.5 mg EVERY 12 HOURS ORAL 06/26/19 21:00 07/26/19 20:59 06/27/19 08:08 Insulin Aspart (NovoLOG) Q6HR SUBQ 06/26/19 06:00 07/22/19 00:00 06/27/19 12:35 Iohexol (OMNIPAQUE-300 100ml) 100 ml NOW PRN INJ Radiology Procedure 06/26/19 13:00 06/28/19 12:52 Iron Sucrose 100 mg/Sodium Chloride 60 ml @ 240 mls/hr BEDTIME IV 06/26/19 21:00 06/29/19 21:14 06/26/19 20:26 Levetiracetam (Keppra) 500 mg Q12HR GT 06/26/19 09:00 07/22/19 08:59 06/27/19 08:08 Meropenem 1 gm/ Sodium Chloride 55 ml @ 110 mls/hr Q8HR IVPB 06/26/19 14:00 07/01/19 13:59 06/27/19 05:13 Pantoprazole (Protonix) 40 mg Q12HR IVP 06/26/19 09:00 07/22/19 06:29 06/27/19 08:08 Polyethylene Glycol (Miralax) 17 gm BEDTIME ORAL 06/27/19 21:00 07/27/19 20:59 Polyethylene Glycol (Miralax) 17 gm PRN PRN GT Constipation 06/26/19 05:45 07/21/19 05:44 Potassium Chloride 100 ml @ 50 mls/hr Q2H IVPB 06/27/19 08:00 06/27/19 13:59 06/27/19 12:24 Spironolactone (Aldactone) 25 mg DAILY ORAL 06/27/19 09:00 07/27/19 08:59 06/27/19 08:08 Laura Gimenez M.D. Jun 27, 2019 13:24
--- NOTE | 2019-06-27 14:42 | NUR ---
RD ASSESSMENT & RECOMMENDATIONS SEE CARE ACTIVITY FOR COMPLETE ASSESSMENT DAILY ESTIMATED NEEDS: Needs based on Critical care, wounds 73kg 22-30 kcals/kg 0971-2898 total kcals 1.2-2 g protein/kg 87-146 g total protein 25-30 mL/kg 4719-9216 total fluid mLs NUTRITION DIAGNOSIS: 1) Increased kcal/pro needs R/T wound healing as evidenced by pt admitted w/ multiple wounds including full thickness at posterior neck under collar of trach, sacrum, rt trochanter, and rt ischium. 2) Swallowing difficulty R/T respiratory status as evidenced by pt trach/PEG dep for all nutritional needs. CURRENT TF:Glucerna 1.2 @ 40ml/hr x 24 hrs ENTERAL NUTRITION RECOMMENDATIONS: Glucerna 1.2 @ 60ml/hr x 24 hrs + Prosource 1pkt QD to provide 1440ml, 1728kcal, 86 +11g prot, 1159ml free water - As medically appropriate, increase goal rate to 60ml/hr x 24 hrs -> advance 10ml q 4-6 hrs as tolerated to goal rate - HOB 30-45 degrees/ H2O flush of 180ml q 4 hrs - Add Prosource 1pkt daily ADDITIONAL RECOMMENDATIONS: 1. Maintain calibrated bed scale for accurate CBW 2. Wound healing: Add Vit C 500mg QD + ZnSO4 220mg QD x 10 days continue Christian 1pkt BID 3. Monitor lytes daily, replete as needed (K low) 4. Consider long acting insulin for improved BG control 5. Hold colace: + rectal tube 6. Monitor TF tolerance and ability to increase TF: elev lipase
--- NOTE | 2019-06-27 14:51 | Surgery Progress Note ---
Surgery Progress Note Subjective Additional Comments no acute events Objective Last 24 Hour Vital Signs Date Time Temp Pulse Resp B/P (MAP) Pulse Ox O2 Delivery O2 Flow Rate FiO2 06/27/19 13:30 81 25 30 06/27/19 12:00 30 06/27/19 12:00 Mechanical Ventilator 06/27/19 11:29 77 19 30 06/27/19 09:15 69 31 30 06/27/19 08:08 118/77 06/27/19 08:00 30 06/27/19 08:00 99.0 65 20 118/75 (89) 97 06/27/19 08:00 Mechanical Ventilator 06/27/19 07:52 67 25 30 06/27/19 07:43 69 06/27/19 05:05 64 27 30 06/27/19 04:00 99.7 73 28 119/70 (86) 97 73 06/27/19 04:00 30 06/27/19 04:00 Mechanical Ventilator 06/27/19 03:33 66 06/27/19 03:20 58 25 30 06/27/19 01:43 65 27 30 06/27/19 00:00 Mechanical Ventilator 06/27/19 00:00 99.0 61 25 124/75 (91) 98 61 06/26/19 23:28 56 26 30 06/26/19 23:27 62 06/26/19 21:28 110/65 06/26/19 21:19 58 28 30 06/26/19 20:00 Mechanical Ventilator 06/26/19 20:00 53 06/26/19 20:00 30 06/26/19 19:14 62 31 30 06/26/19 19:14 62 31 97 Mechanical Ventilator 40 06/26/19 17:17 58 23 30 06/26/19 16:00 30 06/26/19 16:00 99.3 57 21 121/75 (90) 99 57 06/26/19 16:00 57 06/26/19 16:00 Mechanical Ventilator 06/26/19 15:03 57 26 30 I&O Intake and Output 06/26/19 06/27/19 19:00 07:00 Intake Total 1525 ml 900 ml Output Total 1200 ml 1120 ml Balance 325 ml -220 ml Intake Free Water 600 ml 50 ml IV Total 605 ml 490 ml Tube Feeding 320 ml 360 ml Output Urine Total 1100 ml 1100 ml Stool Total 100 ml 20 ml # Bowel Movements 3 100 Dressing: other Wound: other Drains: other Cardiovascular: RSR Respiratory: decreased breath sounds Abdomen: soft, present bowel sounds Extremities: no cyanosis Laboratory Tests Test 06/27/19 03:15 06/27/19 03:30 Stool Occult Blood Negative (NEGATIVE) White Blood Count 10.9 K/UL (4.8-10.8) H Red Blood Count 2.86 M/UL (4.70-6.10) L Hemoglobin 7.9 G/DL (14.2-18.0) L Hematocrit 23.2 % (42.0-52.0) L Mean Corpuscular Volume 81 FL (80-99) Mean Corpuscular Hemoglobin 27.6 PG (27.0-31.0) Mean Corpuscular Hemoglobin Concent 33.9 G/DL (32.0-36.0) Red Cell Distribution Width 14.0 % (11.6-14.8) Platelet Count 529 K/UL (150-450) H Mean Platelet Volume 5.6 FL (6.5-10.1) L Neutrophils (%) (Auto) % (45.0-75.0) Lymphocytes (%) (Auto) % (20.0-45.0) Monocytes (%) (Auto) % (1.0-10.0) Eosinophils (%) (Auto) % (0.0-3.0) Basophils (%) (Auto) % (0.0-2.0) Sodium Level 141 MMOL/L (136-145) Potassium Level 2.7 MMOL/L (3.5-5.1) *L Chloride Level 105 MMOL/L (98-107) Carbon Dioxide Level 24 MMOL/L (21-32) Anion Gap 12 mmol/L (5-15) Blood Urea Nitrogen 7 mg/dL (7-18) Creatinine 0.5 MG/DL (0.55-1.30) L Estimat Glomerular Filtration Rate > 60 mL/min (>60) Glucose Level 247 MG/DL (74-106) H Calcium Level 8.5 MG/DL (8.5-10.1) Phosphorus Level 2.5 MG/DL (2.5-4.9) Magnesium Level 1.5 MG/DL (1.8-2.4) L Total Bilirubin 0.4 MG/DL (0.2-1.0) Aspartate Amino Transf (AST/SGOT) 17 U/L (15-37) Alanine Aminotransferase (ALT/SGPT) 13 U/L (12-78) Alkaline Phosphatase 78 U/L (46-116) Pro-B-Type Natriuretic Peptide 1238 pg/mL (0-125) H Total Protein 6.2 G/DL (6.4-8.2) L Albumin 1.5 G/DL (3.4-5.0) L Globulin 4.7 g/dL Albumin/Globulin Ratio 0.3 (1.0-2.7) L Triglycerides Level 166 MG/DL (30-150) H Cholesterol Level 64 MG/DL (< 200) LDL Cholesterol 37 mg/dL (<100) HDL Cholesterol 11 MG/DL (40-60) L Cholesterol/HDL Ratio 5.8 (3.3-4.4) H Amylase Level 154 U/L (25-115) H Lipase 1469 U/L (73-393) H Plan Problems: (1) Decubitus skin ulcer Assessment & Plan: Pt presented on admission with multiple pressure injuries and Moisture Associated Skin damage Buttocks and Bilateral groin. Both earlobes including medial canals noted to have scaly red plaques and and small lesions. Full thickness stage 3 pressure injury posterior neck under collar of trach. Base of wound has 25% slough,75% beefy red .Small amt serosanguineous exudate noted. Borders are macerated. Surrounding skin is clean and dry. Moisture Associated Skin Damage noted to bilateral groin areas,Buttocks and bilateral ischium. Skin is grossly erythematous and denuded with scattered satellite lesions. Full thickness stage 3 sacral pressure injury. Base of wound is 25% necrotic ,30 % slough ,otherwise beefy red with small amt serous exudate.Borders are macerated.(L)(L)8.5cm x (W)10cm. Periwound MASD. Full Thickness stage 3 pressure injury R trochanter. Base of wound 80% beefy red ,20% slough. Small amt serous exudate. Borders are macerated(L)3cm x (W) 3.2cm. No odor noted.Periwound MASD. Full Thickness stage 3 pressure injury R ischium. Base of wound is 25% necrotic , beefy red with scattered slough. Borders are macerated. Small amt serous exudate noted. No odor noted.(L)5.3cm x (W)3.9cm. Periwound MASD. Full thickness stage 3 pressure injury L Ischium. Base of wound is beefy red and moist. Borders are macerated. Small amt serous exudate noted.(L)4cm x (W) 3.2cm x (D)0.2cm. Both heels are pink and easily blanchable. Bilat foot drop noted. Tx.Plan: Cleanse wounds on Buttocks, sacrum, ishium, trochanter with Saline. Apply Therahoney to wounds. Apply Triad Paste periwound to cover erythematous skin. Cover with Optifoam drsgs Daily and prn. Apply Phytoplex Lotion to R and L ears daily and prn. Apply Cavilon Skin Barrier to Both heels. Cover each heel with Optifoam drsg. Change every 7 days and prn. APM/MAICOL Mattress overlay. Reposition at least every 2hours or as tolerated. Off-load heels with pillow. Place pillow between knees. (2) Feeding by G-tube Assessment & Plan: DAILY ESTIMATED NEEDS: Needs based on Critical care, wounds 73kg 22-30 kcals/kg 2957-2674 total kcals 1.25-2 g protein/kg 91-146 g total protein 25-30 mL/kg 2576-5265 total fluid mLs NUTRITION DIAGNOSIS: 1) Increased kcal/pro needs R/T wound healing as evidenced by pt admitted w/ multiple wounds, sacral, BL buttocks full thickness. 2) Swallowing difficulty R/T respiratory status as evidenced by pt trach/PEG dep for all nutritional needs. CURRENT TF: Glucerna 1.2 @40/hr ENTERAL NUTRITION RECOMMENDATIONS: Glucerna 1.5 @ 50ml/hr x 24 hrs + Prosource x1 to provide 1200ml, 1800kcal, 99g + 11g prot, 911ml free water - Rec TF change to Glucerna 1.5 to better meet est kcal and protein needs - Start @ 20ml/hr x 6 hrs, increase by 10ml every 4-6 hrs to goal rate as tolerated - HOB 30-45 degrees/ water flush per MD ADDITIONAL RECOMMENDATIONS: 1. Maintain calibrated bed scale for accurate CBW 2. Wound healing: Add Christian 1pkt BID F/up w/ WC RN osmani 3. Monitor lytes daily, replete as needed Elevated Na (150), rec increase water flushes 4. F/up w/ H&P (3) Status post tracheostomy Assessment & Plan: need to monitor trach collar closely as worsening wound keep protected as above will monitor Steve Franks Jun 27, 2019 14:50
--- NOTE | 2019-06-27 15:58 | NUR ---
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 98.2 HR 65 RR 20 B/P 111/71 WBC 10.9 H/H 7.9/23.2 PLT 529 K 2.2 AMYLASE 154 LIPASE 1967 CXR= NO ACUTE PROCESS IS: MEROPENEM IV IRON IV PROTONIX IV IVF D5@50ML/HR STEP DOWN STATUS
[2019-06-27 16:00] VITALS: BP 99/66
--- NOTE | 2019-06-27 17:30 | Progress Note ---
DATE: 06/27/2019 SUBJECTIVE: The patient is awake, alert, afebrile, and hemodynamically stable. PHYSICAL EXAMINATION: VITAL SIGNS: Blood pressure is 118/77, his pulse is 65, respirations 20, temperature 99. HEENT: Eyes were normal. ENT, mucous membranes were moist and intact. NECK: Supple with no JVD without lymph nodes. Tracheostomy site is clean. LUNGS: Clear without rhonchi, rales, or wheezing anteriorly; however, there are bilateral rhonchi at both bases more on the left than on the right. HEART: Normal sounds with regular beats. There is no tachycardia at rest. ABDOMEN: Soft, obese, nontender with normal bowel sounds. Gastrostomy site is clean. EXTREMITIES: Warm without cyanosis, clubbing, or edema. LABORATORY DATA: His hemoglobin 7.9, hematocrit 33.2 with MCV of 81, WBC of 10.2, and platelets 529. His BUN and creatinine are 7 and 0.5 respectively. Sodium 141, potassium 3.7, chloride 105, CO2 was 24. His pro BNP is 1238, it was 1628 yesterday. His albumin is 1.5 and total protein is 6.2. His amylase is 154 and lipase is 1469. IMPRESSION: The patient has hypokalemia and will receive 40 mEq via G-tube b.i.d. today. His pro BNP is improving as well as lipase. Repeat laboratory tests will be done in the a.m. Liset Wallace M.D. DR: FRAN JOB#: [id number] CC:
--- NOTE | 2019-06-27 18:00 | NUR ---
NURSE NOTES: Complete bed bath and linen change provided, oral care given. Patient repositioned and tolerated well. Bed locked, alarmed, and in lowest position, padded side rails up x2, and call light within reach. Will continue to monitor.
--- NOTE | 2019-06-27 18:30 | NUR ---
NURSE NOTES: 1 unit of PRBC transfusion completed, no adverse reaction noted. Vitals post transfusion as follows: BP 111/69 HR 62 Temp 98.2 axillary RR 24 SpO2 100%. Patient in stable condition. Will continue to monitor.
--- NOTE | 2019-06-27 19:01 | NUR ---
HAND-OFF: Report given to Milli Casiano RN. Endorsed plan of care. Patient in stable condition.
--- NOTE | 2019-06-27 19:02 | NUR ---
NURSE NOTES: received pt from Tana JACKSON .,pt is resting on the bed, obtunded and awake. pt is on vent with O2sat at 99%. no SOB no respiratory distress. rectal tube in place, byrnes cath is in place draining well with gravity. Right subclavian TLC is intact, patent, and intact. D5 W @ 50cc is running at this moment. Gtube site is intact, patent, and intact. side rails are padded. bed at the lowest position, alarmed, and locked. call light within reach. will continue to monitor pt with plan of care.
[2019-06-27 20:00] VITALS: BP 123/80
[2019-06-27] MEDS: Dyna-Hex 2% Top Sol 2oz TOPIC SCH (20:26)
--- NOTE | 2019-06-27 20:38 | Hematology/Onc Progress Note ---
Assessment/Plan Assessment/Plan ASSESSMENT AND RECOMMENDATIONS: # Anemia due to chronic disease v gi bleed, hgb downtrending since admission --> last time I saw this patient, hgb was 13.1, this was back in 2018 --> hgb trend 9-->8.1-->6.9-->12-->7.2-->7.9 --> prbc for 06/24, 06/25, 06/27 --> iv iron x 5 days given, low sat and ferritin relative to inflammatory process - through 06/29 --> stool ob negative # Coagulopathy is likely due to dic --> vit k as as need, ffp as well --> if worsening coagulopathy and bleeding given ffp --> at this time treatment of underlying process # Leukocytosis is likely related to underyling Pna --> has been started on abx --> now IMPROVEd --> abcx: saulo # PNA with infiltrates --> with sepsis poa, is on broad spectrum abx --> on pressors in icu on adm--> now sdu # Chronic cholecystitis s/p cholecystostomy tube in the past # Chronic resp failure vent/trach dependant # Asthma/COPD # HTN # Dm2 # Dementia # CVA s/p vegetative state # Dysphagia s/p G-tube --> replace as per gi # Seizure disorder # SNF resident GREATLY APPRECIATE CONSULTATION. Subjective Allergies: Coded Allergies: NO KNOWN DRUG ALLERGIES (Unverified Allergy, Unknown, 06/28/15) Subjective 06/25: no major changes, labs noted, hgb lower, dw MANUEL [place], needs blood, also gi consulted, in icu 06/26: on vent/trach, as needed prbc when labs come back 06/27: transferred to sdu, obtunded, hgb 7.9, blood ordered Objective Objective Current Medications Medications (Trade) Dose Ordered Sig/Tony Route PRN Reason Start Time Stop Time Status Last Admin Dose Admin Acetaminophen (Tylenol) 650 mg Q4H PRN GT Mild Pain/Temp > 100.5 06/26/19 05:45 07/22/19 05:44 Barium Sulfate (Readi-Cat 2) 450 ml NOW PRN ORAL Radiology Procedure 06/26/19 13:00 06/28/19 12:52 Chlorhexidine Gluconate (Kay-Hex 2%) 1 applic DAILY@2000 TOPIC 06/26/19 20:00 07/22/19 19:59 06/27/19 20:26 Dextrose 1,000 ml @ 50 mls/hr Q20H IV 06/26/19 05:30 07/25/19 08:59 06/27/19 00:36 Dextrose (Dextrose 50%) 25 ml Q30M PRN IV Hypoglycemia 06/26/19 05:30 07/21/19 21:59 Dextrose (Dextrose 50%) 50 ml Q30M PRN IV Hypoglycemia 06/26/19 05:30 07/21/19 21:59 Docusate Sodium (Colace) 100 mg TWICE A DAY NG 06/27/19 09:00 07/27/19 08:59 06/27/19 17:42 Enalapril Maleate (Vasotec) 2.5 mg EVERY 12 HOURS ORAL 06/26/19 21:00 07/26/19 20:59 06/27/19 08:08 Insulin Aspart (NovoLOG) Q6HR SUBQ 06/26/19 06:00 07/22/19 00:00 06/27/19 17:47 Iohexol (OMNIPAQUE-300 100ml) 100 ml NOW PRN INJ Radiology Procedure 06/26/19 13:00 06/28/19 12:52 Iron Sucrose 100 mg/Sodium Chloride 60 ml @ 240 mls/hr BEDTIME IV 06/26/19 21:00 06/29/19 21:14 06/26/19 20:26 Levetiracetam (Keppra) 500 mg Q12HR GT 06/26/19 09:00 07/22/19 08:59 06/27/19 20:26 Meropenem 1 gm/ Sodium Chloride 55 ml @ 110 mls/hr Q8HR IVPB 06/26/19 14:00 07/01/19 13:59 06/27/19 14:42 Pantoprazole (Protonix) 40 mg Q12HR IVP 06/26/19 09:00 07/22/19 06:29 06/27/19 20:26 Polyethylene Glycol (Miralax) 17 gm BEDTIME ORAL 06/27/19 21:00 07/27/19 20:59 06/27/19 20:26 Polyethylene Glycol (Miralax) 17 gm PRN PRN GT Constipation 06/26/19 05:45 07/21/19 05:44 Spironolactone (Aldactone) 25 mg DAILY ORAL 06/27/19 09:00 07/27/19 08:59 06/27/19 08:08 Last 24 Hour Vital Signs Date Time Temp Pulse Resp B/P (MAP) Pulse Ox O2 Delivery O2 Flow Rate FiO2 06/27/19 17:51 61 24 30 06/27/19 16:00 98.2 73 20 99/66 (77) 100 06/27/19 16:00 30 06/27/19 16:00 Mechanical Ventilator 06/27/19 15:35 70 06/27/19 15:30 62 23 30 06/27/19 13:30 81 25 30 06/27/19 12:00 30 06/27/19 12:00 Mechanical Ventilator 06/27/19 12:00 98.2 65 20 111/71 (84) 100 06/27/19 11:46 64 06/27/19 11:29 77 19 30 06/27/19 09:15 69 31 30 06/27/19 08:08 118/77 06/27/19 08:00 30 06/27/19 08:00 99.0 65 20 118/75 (89) 97 06/27/19 08:00 Mechanical Ventilator 06/27/19 07:52 67 25 30 06/27/19 07:43 69 06/27/19 05:05 64 27 30 06/27/19 04:00 99.7 73 28 119/70 (86) 97 73 06/27/19 04:00 30 06/27/19 04:00 Mechanical Ventilator 06/27/19 03:33 66 06/27/19 03:20 58 25 30 06/27/19 01:43 65 27 30 06/27/19 00:00 Mechanical Ventilator 06/27/19 00:00 99.0 61 25 124/75 (91) 98 61 06/26/19 23:28 56 26 30 06/26/19 23:27 62 06/26/19 21:28 110/65 06/26/19 21:19 58 28 30 06/26/19 20:00 Mechanical Ventilator 06/26/19 20:00 53 06/26/19 20:00 30 06/26/19 19:14 62 31 30 06/26/19 19:14 62 31 97 Mechanical Ventilator 40 06/26/19 17:17 58 23 30 06/26/19 16:00 30 06/26/19 16:00 99.3 57 21 121/75 (90) 99 57 06/26/19 16:00 57 06/26/19 16:00 Mechanical Ventilator 06/26/19 15:03 57 26 30 06/26/19 12:38 60 31 30 06/26/19 12:00 30 06/26/19 12:00 58 06/26/19 12:00 99.1 74 26 128/78 (95) 98 74 06/26/19 12:00 Mechanical Ventilator 06/26/19 10:43 61 27 30 06/26/19 08:50 57 18 30 06/26/19 08:00 62 06/26/19 08:00 98.5 61 22 130/79 (96) 99 61 06/26/19 08:00 30 06/26/19 08:00 Mechanical Ventilator 06/26/19 07:12 54 31 30 06/26/19 05:27 59 30 30 30 30 06/26/19 05:00 61 26 130/84 (99) 99 06/26/19 04:00 30 06/26/19 04:00 65 06/26/19 04:00 98.3 64 32 125/74 (91) 98 06/26/19 04:00 Mechanical Ventilator 06/26/19 03:00 65 33 119/71 (87) 97 06/26/19 02:30 65 34 30 30 30 06/26/19 02:00 65 29 120/71 (87) 99 06/26/19 01:00 61 33 133/70 (91) 100 06/26/19 00:56 62 26 30 30 30 06/26/19 00:00 Mechanical Ventilator 06/26/19 00:00 97.8 62 30 136/76 (96) 100 06/26/19 00:00 62 06/25/19 23:18 62 29 30 30 30 06/25/19 23:00 62 30 131/76 (94) 100 06/25/19 22:00 63 29 124/73 (90) 100 06/25/19 21:15 62 30 30 30 30 06/25/19 21:00 98.3 63 30 119/68 (85) 100 Intake and Output 06/26/19 06/27/19 19:00 07:00 Intake Total 1525 ml 900 ml Output Total 1200 ml 1120 ml Balance 325 ml -220 ml Intake Free Water 600 ml 50 ml IV Total 605 ml 490 ml Tube Feeding 320 ml 360 ml Output Urine Total 1100 ml 1100 ml Stool Total 100 ml 20 ml # Bowel Movements 3 100 Labs Test 06/25/19 05:12 06/25/19 07:55 06/25/19 08:45 06/26/19 07:35 Sodium Level 147 MMOL/L (136-145) 146 MMOL/L (136-145) Potassium Level 4.0 MMOL/L (3.5-5.1) 3.6 MMOL/L (3.5-5.1) Chloride Level 113 MMOL/L (98-107) 109 MMOL/L (98-107) Carbon Dioxide Level 18 MMOL/L (21-32) 22 MMOL/L (21-32) Anion Gap 16 mmol/L (5-15) 15 mmol/L (5-15) Blood Urea Nitrogen 15 mg/dL (7-18) 12 mg/dL (7-18) Creatinine 0.7 MG/DL (0.55-1.30) 0.6 MG/DL (0.55-1.30) Estimat Glomerular Filtration Rate > 60 mL/min (>60) > 60 mL/min (>60) Glucose Level 285 MG/DL (74-106) 291 MG/DL (74-106) Uric Acid 4.9 MG/DL (2.6-7.2) Calcium Level 8.8 MG/DL (8.5-10.1) 8.5 MG/DL (8.5-10.1) Phosphorus Level 2.6 MG/DL (2.5-4.9) 3.2 MG/DL (2.5-4.9) Magnesium Level 1.5 MG/DL (1.8-2.4) 1.9 MG/DL (1.8-2.4) Total Bilirubin 0.3 MG/DL (0.2-1.0) 0.3 MG/DL (0.2-1.0) Aspartate Amino Transf (AST/SGOT) 14 U/L (15-37) 14 U/L (15-37) Alanine Aminotransferase (ALT/SGPT) 10 U/L (12-78) 13 U/L (12-78) Alkaline Phosphatase 81 U/L (46-116) 82 U/L (46-116) C-Reactive Protein, Quantitative 13.3 mg/dL (0.00-0.90) 8.1 mg/dL (0.00-0.90) Pro-B-Type Natriuretic Peptide 1588 pg/mL (0-125) 1628 pg/mL (0-125) Total Protein 6.4 G/DL (6.4-8.2) 5.6 G/DL (6.4-8.2) Albumin 1.4 G/DL (3.4-5.0) 1.6 G/DL (3.4-5.0) Globulin 5.0 g/dL 4.0 g/dL Albumin/Globulin Ratio 0.3 (1.0-2.7) 0.4 (1.0-2.7) White Blood Count 9.4 K/UL (4.8-10.8) 9.6 K/UL (4.8-10.8) Red Blood Count 2.59 M/UL (4.70-6.10) 3.09 M/UL (4.70-6.10) Hemoglobin 7.2 G/DL (14.2-18.0) 8.5 G/DL (14.2-18.0) Hematocrit 20.9 % (42.0-52.0) 25.2 % (42.0-52.0) Mean Corpuscular Volume 81 FL (80-99) 81 FL (80-99) Mean Corpuscular Hemoglobin 27.7 PG (27.0-31.0) 27.5 PG (27.0-31.0) Mean Corpuscular Hemoglobin Concent 34.5 G/DL (32.0-36.0) 33.8 G/DL (32.0-36.0) Red Cell Distribution Width 14.7 % (11.6-14.8) 14.2 % (11.6-14.8) Platelet Count 491 K/UL (150-450) 521 K/UL (150-450) Mean Platelet Volume 5.8 FL (6.5-10.1) 6.1 FL (6.5-10.1) Neutrophils (%) (Auto) % (45.0-75.0) 76.3 % (45.0-75.0) Lymphocytes (%) (Auto) % (20.0-45.0) 13.8 % (20.0-45.0) Monocytes (%) (Auto) % (1.0-10.0) 6.9 % (1.0-10.0) Eosinophils (%) (Auto) % (0.0-3.0) 2.6 % (0.0-3.0) Basophils (%) (Auto) % (0.0-2.0) 0.4 % (0.0-2.0) Differential Total Cells Counted 100 Neutrophils % (Manual) 72 % (45-75) Lymphocytes % (Manual) 19 % (20-45) Monocytes % (Manual) 7 % (1-10) Eosinophils % (Manual) 2 % (0-3) Basophils % (Manual) 0 % (0-2) Band Neutrophils 0 % (0-8) Platelet Estimate Adequate Platelet Morphology Normal Hypochromasia 1+ Anisocytosis 1+ Microcytosis 1+ Arterial Blood pH 7.505 (7.350-7.450) Arterial Blood Partial Pressure CO2 20.8 mmHg (35.0-45.0) Arterial Blood Partial Pressure O2 89.8 mmHg (75.0-100.0) Arterial Blood HCO3 16.0 mmol/L (22.0-26.0) Arterial Blood Oxygen Saturation 96.6 % (95-100) Arterial Blood Base Excess -6.1 (-2-2) Donald Test Positive Test 06/27/19 03:15 06/27/19 03:30 Stool Occult Blood Negative (NEGATIVE) White Blood Count 10.9 K/UL (4.8-10.8) Red Blood Count 2.86 M/UL (4.70-6.10) Hemoglobin 7.9 G/DL (14.2-18.0) Hematocrit 23.2 % (42.0-52.0) Mean Corpuscular Volume 81 FL (80-99) Mean Corpuscular Hemoglobin 27.6 PG (27.0-31.0) Mean Corpuscular Hemoglobin Concent 33.9 G/DL (32.0-36.0) Red Cell Distribution Width 14.0 % (11.6-14.8) Platelet Count 529 K/UL (150-450) Mean Platelet Volume 5.6 FL (6.5-10.1) Neutrophils (%) (Auto) % (45.0-75.0) Lymphocytes (%) (Auto) % (20.0-45.0) Monocytes (%) (Auto) % (1.0-10.0) Eosinophils (%) (Auto) % (0.0-3.0) Basophils (%) (Auto) % (0.0-2.0) Sodium Level 141 MMOL/L (136-145) Potassium Level 2.7 MMOL/L (3.5-5.1) Chloride Level 105 MMOL/L (98-107) Carbon Dioxide Level 24 MMOL/L (21-32) Anion Gap 12 mmol/L (5-15) Blood Urea Nitrogen 7 mg/dL (7-18) Creatinine 0.5 MG/DL (0.55-1.30) Estimat Glomerular Filtration Rate > 60 mL/min (>60) Glucose Level 247 MG/DL (74-106) Calcium Level 8.5 MG/DL (8.5-10.1) Phosphorus Level 2.5 MG/DL (2.5-4.9) Magnesium Level 1.5 MG/DL (1.8-2.4) Total Bilirubin 0.4 MG/DL (0.2-1.0) Aspartate Amino Transf (AST/SGOT) 17 U/L (15-37) Alanine Aminotransferase (ALT/SGPT) 13 U/L (12-78) Alkaline Phosphatase 78 U/L (46-116) Pro-B-Type Natriuretic Peptide 1238 pg/mL (0-125) Total Protein 6.2 G/DL (6.4-8.2) Albumin 1.5 G/DL (3.4-5.0) Globulin 4.7 g/dL Albumin/Globulin Ratio 0.3 (1.0-2.7) Triglycerides Level 166 MG/DL (30-150) Cholesterol Level 64 MG/DL (< 200) LDL Cholesterol 37 mg/dL (<100) HDL Cholesterol 11 MG/DL (40-60) Cholesterol/HDL Ratio 5.8 (3.3-4.4) Amylase Level 154 U/L (25-115) Lipase 1469 U/L (73-393) Height (Feet): 5 Height (Inches): 7.00 Weight (Pounds): 162 Objective Physical Exam HEENT: normocephalic, bilateral eye PERRL Neck: normal inspection, supple, tracheotomy - site c/d/i ++ vent Respiratory: chest non-tender, lungs clear, normal breath sounds, chest symmetrical, palpation of chest normal Cardiovascular : normal peripheral pulses, regular rate, rhythm Gastrointestinal: normal inspection, non tender, soft, no mass, no guarding, no rebound, ++ feeding tube c/d/i Genitourinary: normal inspection, no CVA tenderness Musculoskeletal: back normal, gait/station normal, normal range of motion, non- tender, no calf tenderness Neurologic: nonverbal Skin: normal color, no darrell GI: ++ Manolo Cervantes MD Jun 27, 2019 20:38
[2019-06-27] MEDS: Iron Sucrose 100 MG in NS 55 ML IV SCH (20:52)
[2019-06-27] MEDS ORDERED: Miralax 17gm pkt ORAL SCH (21:00)
--- NOTE | 2019-06-27 23:51 | NUR ---
NURSE NOTES: left voice mail to Dr. Benítez for cough syrup, will wait for call back. Addendum: 06/27/19 at [id number] by LEO SERNA RN rene pt
[2019-06-28] VITALS: BP 121/76
--- NOTE | 2019-06-28 | NUR ---
NURSE NOTES: oral care given, changed bed and provided new gown. SCD on, repositioned pt Q2HRS. no SOB noted. O2sat is at 100%. call light within reach. side rails padded.
[2019-06-28] MEDS: NovoLOG Insulin Flexpen SUBQ SCH ×4 (00:33→17:41)
[2019-06-28 04:00] VITALS: BP 122/86
[2019-06-28] MEDS: Meropenem 1 GM in NS 55 ML IVPB SCH ×3 (06:07→21:45)
--- NOTE | 2019-06-28 06:35 | NUR ---
NURSE NOTES: Left voice mail regarding Potassium 2.[address] Green. will wait for call back.
[2019-06-28 06:46] LABS: BASOPHILS % (AUTO) 0.3 % (0.0-2.0); EOSINOPHILS % (AUTO) 2.4 % (0.0-3.0); HEMATOCRIT 27.3 % (42.0-52.0); HEMOGLOBIN 9.2 G/DL (14.2-18.0); LYMPHOCYTES % (AUTO) 12.6 % (20.0-45.0); MEAN CORPUSCULAR VOLUME 83 FL (80-99); NEUTROPHILS % (AUTO) 78.7 % (45.0-75.0); PLATELET COUNT 508 K/UL (150-450); RED BLOOD COUNT 3.31 M/UL (4.70-6.10); RED CELL DISTRIBUTION WIDTH 14.3 % (11.6-14.8); WHITE BLOOD COUNT 11.3 K/UL (4.8-10.8)
[2019-06-28 07:14] LABS: ALANINE AMINOTRANSFERASE 15 U/L (12-78); ALBUMIN 1.6 G/DL (3.4-5.0); ALBUMIN/GLOBULIN RATIO 0.3 (1.0-2.7); ALKALINE PHOSPHATASE 81 U/L (46-116); ANION GAP 13 mmol/L (5-15); ASPARTATE AMINO TRANSFERASE 13 U/L (15-37); BILIRUBIN,TOTAL 0.3 MG/DL (0.2-1.0); BLOOD UREA NITROGEN 6 mg/dL (7-18); CALCIUM 8.8 MG/DL (8.5-10.1); CARBON DIOXIDE 24 MMOL/L (21-32); CHLORIDE 105 MMOL/L (98-107); CREATININE 0.5 MG/DL (0.55-1.30); SODIUM 141 MMOL/L (136-145)
--- NOTE | 2019-06-28 07:20 | NUR ---
HAND-OFF: Report given to Ashley JACKSON. pt is in stable condition.
--- NOTE | 2019-06-28 07:21 | NUR ---
NURSE NOTES: Received patient in bed. In no apparent distress. Vent dependent. On continuous GTF. Waddell cath and rectal tube inplace. Contact isolation observed. Will continue plan of care.
--- NOTE | 2019-06-28 07:21 | Infectious Diseases Prog Note ---
Assessment/Plan Assessment/Plan Assessment: Severe Sepsis ESBL E.coli UTI c/w bacteremia Multifocal PNA -06/25 CXR: Bilateral interstitial and airspace disease, left greater than right, again demonstrated. Left-sided pleural effusion is again demonstrated -sp cx ESBL E.coli -u/a wbc tnct, nit neg, leuk +3; ucx >100k ESBL E.coli (S Zosyn, Imi, Amikacin) -06/21 Bcx / ESBL E.coli (S Zosyn, Imi, Amikacin); 06/23 Bcx NTD -06/21 CXR:.New bilateral patchy airspace opacities in the left midlung an as well as the right upper lung concerning for multifocal pneumonia. Similar retrocardiac atelectasis or consolidation. -influenza sc neg Severe anion gap metabolic acidosis - ?etiology- normal lactic acid, normal Cr- BG levels between 119-170s- r/o DKA vs other Fever, SP Mild leukocytosis HTN asthma COPD persistent vegetative state CVA Dm2 chronic respiratory failure s/p trach/vent dependent Dysphagia s/p GT NH resident Plan: -Continue Meropenem #5 (abx d #10/25) for ESBL UTI and bacteremia and PNA -06/25 SP IV Linezolid #3 -06/24 SP Tamiflu #2, IV amikacin #2, Cefepime #3 -06/23 SP flagyl #3 -06/22 SP Ertapenem x1 -06/21 SP Zosyn x1 -f/u cx -Monitor CBC/CMP, temperatures -f/u Bcx x2, sp cx -GT/trach/ICU care -aspiration precautions -neprho f/u Thank you for this consultation. Will continue to follow along with you. Subjective Allergies: Coded Allergies: NO KNOWN DRUG ALLERGIES (Unverified Allergy, Unknown, 06/28/15) Subjective Afebrile. Stable FiO2 30% Mild leukocytosis Objective Vital Signs Last 24 Hour Vital Signs Date Time Temp Pulse Resp B/P (MAP) Pulse Ox O2 Delivery O2 Flow Rate FiO2 06/28/19 04:33 69 26 30 06/28/19 04:00 30 06/28/19 04:00 Mechanical Ventilator 06/28/19 04:00 97.8 61 26 122/86 (98) 99 2/15/20 03:55 70 06/28/19 02:50 69 25 30 06/28/19 01:03 65 23 30 06/28/19 00:00 Mechanical Ventilator 06/28/19 00:00 96.8 66 25 121/76 (91) 98 06/27/19 23:53 67 06/27/19 23:09 67 22 30 06/27/19 21:08 64 24 30 06/27/19 20:52 123/80 06/27/19 20:00 Mechanical Ventilator 06/27/19 20:00 99.5 70 20 123/80 (94) 100 06/27/19 20:00 30 06/27/19 19:25 72 06/27/19 19:08 66 24 30 06/27/19 17:51 61 24 30 06/27/19 16:00 98.2 73 20 99/66 (77) 100 06/27/19 16:00 30 06/27/19 16:00 Mechanical Ventilator 06/27/19 15:35 70 06/27/19 15:30 62 23 30 06/27/19 13:30 81 25 30 06/27/19 12:00 30 06/27/19 12:00 Mechanical Ventilator 06/27/19 12:00 98.2 65 20 111/71 (84) 100 06/27/19 11:46 64 06/27/19 11:29 77 19 30 06/27/19 09:15 69 31 30 06/27/19 08:08 118/77 06/27/19 08:00 30 06/27/19 08:00 99.0 65 20 118/75 (89) 97 06/27/19 08:00 Mechanical Ventilator 06/27/19 07:52 67 25 30 06/27/19 07:43 69 Height (Feet): 5 Height (Inches): 7.00 Weight (Pounds): 162 Objective General Appearance: alert, Chronically Ill Respiratory: normal inspection, no respiratory distress, no wheezing Cardiovascular: regular rate, rhythm, no edema Gastrointestinal: normal bowel sounds, soft, no guarding, no hernia Laboratory Tests Test 06/28/19 03:30 White Blood Count Pending Red Blood Count Pending Hemoglobin Pending Hematocrit Pending Mean Corpuscular Volume Pending Mean Corpuscular Hemoglobin Pending Mean Corpuscular Hemoglobin Concent Pending Red Cell Distribution Width Pending Platelet Count Pending Mean Platelet Volume Pending Neutrophils (%) (Auto) Pending Lymphocytes (%) (Auto) Pending Monocytes (%) (Auto) Pending Eosinophils (%) (Auto) Pending Basophils (%) (Auto) Pending Sodium Level Pending Potassium Level Pending Chloride Level Pending Carbon Dioxide Level Pending Blood Urea Nitrogen Pending Creatinine Pending Estimat Glomerular Filtration Rate Pending Glucose Level Pending Calcium Level Pending Phosphorus Level Pending Magnesium Level Pending Total Bilirubin Pending Aspartate Amino Transf (AST/SGOT) Pending Alanine Aminotransferase (ALT/SGPT) Pending Alkaline Phosphatase Pending Total Protein Pending Albumin Pending Globulin Pending Current Medications Medications (Trade) Dose Ordered Sig/Tony Route PRN Reason Start Time Stop Time Status Last Admin Dose Admin Acetaminophen (Tylenol) 650 mg Q4H PRN GT Mild Pain/Temp > 100.5 06/26/19 05:45 07/22/19 05:44 Barium Sulfate (Readi-Cat 2) 450 ml NOW PRN ORAL Radiology Procedure 06/26/19 13:00 06/28/19 12:52 Chlorhexidine Gluconate (Kay-Hex 2%) 1 applic DAILY@2000 TOPIC 06/26/19 20:00 07/22/19 19:59 06/27/19 20:26 Dextrose 1,000 ml @ 50 mls/hr Q20H IV 06/26/19 05:30 07/25/19 08:59 06/27/19 20:52 Dextrose (Dextrose 50%) 25 ml Q30M PRN IV Hypoglycemia 06/26/19 05:30 07/21/19 21:59 Dextrose (Dextrose 50%) 50 ml Q30M PRN IV Hypoglycemia 06/26/19 05:30 07/21/19 21:59 Docusate Sodium (Colace) 100 mg TWICE A DAY NG 06/27/19 09:00 07/27/19 08:59 06/27/19 17:42 Enalapril Maleate (Vasotec) 2.5 mg EVERY 12 HOURS ORAL 06/26/19 21:00 07/26/19 20:59 06/27/19 20:52 Insulin Aspart (NovoLOG) Q6HR SUBQ 06/26/19 06:00 07/22/19 00:00 06/28/19 06:09 Iohexol (OMNIPAQUE-300 100ml) 100 ml NOW PRN INJ Radiology Procedure 06/26/19 13:00 06/28/19 12:52 Iron Sucrose 100 mg/Sodium Chloride 60 ml @ 240 mls/hr BEDTIME IV 06/26/19 21:00 06/29/19 21:14 06/27/19 20:52 Levetiracetam (Keppra) 500 mg Q12HR GT 06/26/19 09:00 07/22/19 08:59 06/27/19 20:26 Meropenem 1 gm/ Sodium Chloride 55 ml @ 110 mls/hr Q8HR IVPB 06/26/19 14:00 07/01/19 13:59 06/28/19 06:07 Pantoprazole (Protonix) 40 mg Q12HR IVP 06/26/19 09:00 07/22/19 06:29 06/27/19 20:26 Polyethylene Glycol (Miralax) 17 gm BEDTIME ORAL 06/27/19 21:00 07/27/19 20:59 06/27/19 20:26 Polyethylene Glycol (Miralax) 17 gm PRN PRN GT Constipation 06/26/19 05:45 07/21/19 05:44 Spironolactone (Aldactone) 25 mg DAILY ORAL 06/27/19 09:00 07/27/19 08:59 06/27/19 08:08 Vijaya Espinal MD Jun 28, 2019 07:21
[2019-06-28 07:30] LABS: POTASSIUM 2.7 MMOL/L (3.5-5.1)
[2019-06-28 08:00] VITALS: BP 130/78
[2019-06-28] MEDS: Docusate 100mg/10ml Liq NG SCH (08:58)
[2019-06-28] MEDS: Spironolactone 25mg tab GT SCH ×2 (08:59→17:40)
[2019-06-28] MEDS: Pantoprazole Inj IVP SCH ×2 (08:59→20:19)
[2019-06-28] MEDS: Enalapril 2.5mg tab ORAL SCH ×2 (08:59→20:21)
--- NOTE | 2019-06-28 11:19 | Nephrology Progress Note ---
Assessment/Plan Problem List: (1) Metabolic acidosis (2) Acute blood loss anemia (3) Hypokalemia (4) Chronic respiratory failure Assessment Metabolic Acidosis HypoKalemia HyperNatremia Severe Anemia Other Conditions: (1) Nosocomial pneumonia (2) Sepsis (3) Ventilator dependent (4) Chronic vegetative state (5) COPD (chronic obstructive pulmonary disease) (6) Feeding by G-tube (7) Diabetes mellitus, type II (8) Cerebral vascular disease (9) Seizure disorder (10) Chronic complete quadriplegia Plan stop stool softners and laxatives add aldactone K supplement as needed mag supplement DC Bicitra GT D5W IV fluid Protonix IV watch H&H Transfusion as needed per orders Subjective ROS Limited/Unobtainable: Yes Objective Objective Last 24 Hour Vital Signs Date Time Temp Pulse Resp B/P (MAP) Pulse Ox O2 Delivery O2 Flow Rate FiO2 06/28/19 09:06 62 20 30 06/28/19 08:59 130/78 06/28/19 08:00 Mechanical Ventilator 06/28/19 08:00 30 06/28/19 08:00 98.2 64 28 130/78 (95) 97 06/28/19 07:53 69 06/28/19 07:27 69 25 30 06/28/19 04:33 69 26 30 06/28/19 04:00 30 06/28/19 04:00 Mechanical Ventilator 06/28/19 04:00 97.8 61 26 122/86 (98) 99 06/28/19 03:55 70 06/28/19 02:50 69 25 30 06/28/19 01:03 65 23 30 06/28/19 00:00 Mechanical Ventilator 06/28/19 00:00 96.8 66 25 121/76 (91) 98 06/27/19 23:53 67 06/27/19 23:09 67 22 30 06/27/19 21:08 64 24 30 06/27/19 20:52 123/80 06/27/19 20:00 Mechanical Ventilator 06/27/19 20:00 99.5 70 20 123/80 (94) 100 06/27/19 20:00 30 06/27/19 19:25 72 06/27/19 19:08 66 24 30 06/27/19 17:51 61 24 30 06/27/19 16:00 98.2 73 20 99/66 (77) 100 06/27/19 16:00 30 06/27/19 16:00 Mechanical Ventilator 06/27/19 15:35 70 06/27/19 15:30 62 23 30 06/27/19 13:30 81 25 30 06/27/19 12:00 30 06/27/19 12:00 Mechanical Ventilator 06/27/19 12:00 98.2 65 20 111/71 (84) 100 06/27/19 11:46 64 06/27/19 11:29 77 19 30 Intake and Output 06/27/19 06/28/19 19:00 07:00 Intake Total 1660 ml 1300 ml Output Total 1310 ml 1050 ml Balance 350 ml 250 ml Intake Free Water 100 ml 150 ml IV Total 830 ml 670 ml Tube Feeding 480 ml 480 ml Blood Product 250 ml Output Urine Total 1300 ml 850 ml Stool Total 10 ml 200 ml Laboratory Tests 06/28/19 03:30: White Blood Count 11.3H, Red Blood Count 3.31L, Hemoglobin 9.2L, Hematocrit 27.3L, Mean Corpuscular Volume 83, Mean Corpuscular Hemoglobin 27.9, Mean Corpuscular Hemoglobin Concent 33.8, Red Cell Distribution Width 14.3, Platelet Count 508H, Mean Platelet Volume 5.5L, Neutrophils (%) (Auto) 78.7H, Lymphocytes (%) (Auto) 12.6L, Monocytes (%) (Auto) 6.0, Eosinophils (%) (Auto) 2.4, Basophils (%) (Auto) 0.3, Sodium Level 141, Potassium Level 2.7*L, Chloride Level 105, Carbon Dioxide Level 24, Anion Gap 13, Blood Urea Nitrogen 6L, Creatinine 0.5L, Estimat Glomerular Filtration Rate > 60, Glucose Level 250H , Calcium Level 8.8, Phosphorus Level 8.0H, Magnesium Level 1.5L, Total Bilirubin 0.3, Aspartate Amino Transf (AST/SGOT) 13L, Alanine Aminotransferase ( ALT/SGPT) 15, Alkaline Phosphatase 81, Total Protein 6.5, Albumin 1.6L, Globulin 4.9, Albumin/Globulin Ratio 0.3L Height (Feet): 5 Height (Inches): 7.00 Weight (Pounds): 161 General Appearance: no apparent distress EENT: other - Vented Cardiovascular: normal rate Respiratory/Chest: decreased breath sounds Abdomen: distended Ricky Green MD Jun 28, 2019 11:19
[2019-06-28 12:00] VITALS: BP 112/75
--- NOTE | 2019-06-28 14:19 | Surgery Progress Note ---
Surgery Progress Note Subjective Additional Comments no acute events comfortable stable leukocytosis electrolytes being replaced Objective Last 24 Hour Vital Signs Date Time Temp Pulse Resp B/P (MAP) Pulse Ox O2 Delivery O2 Flow Rate FiO2 06/28/19 13:18 65 28 30 06/28/19 12:00 99.9 88 27 112/75 (87) 98 06/28/19 12:00 30 06/28/19 12:00 Mechanical Ventilator 06/28/19 11:45 66 06/28/19 11:26 57 29 30 06/28/19 09:06 62 20 30 06/28/19 08:59 130/78 06/28/19 08:00 Mechanical Ventilator 06/28/19 08:00 30 06/28/19 08:00 98.2 64 28 130/78 (95) 97 06/28/19 07:53 69 06/28/19 07:27 69 25 30 06/28/19 04:33 69 26 30 06/28/19 04:00 30 06/28/19 04:00 Mechanical Ventilator 06/28/19 04:00 97.8 61 26 122/86 (98) 99 06/28/19 03:55 70 06/28/19 02:50 69 25 30 06/28/19 01:03 65 23 30 06/28/19 00:00 Mechanical Ventilator 06/28/19 00:00 96.8 66 25 121/76 (91) 98 06/27/19 23:53 67 06/27/19 23:09 67 22 30 06/27/19 21:08 64 24 30 06/27/19 20:52 123/80 06/27/19 20:00 Mechanical Ventilator 06/27/19 20:00 99.5 70 20 123/80 (94) 100 06/27/19 20:00 30 06/27/19 19:25 72 06/27/19 19:08 66 24 30 06/27/19 17:51 61 24 30 06/27/19 16:00 98.2 73 20 99/66 (77) 100 06/27/19 16:00 30 06/27/19 16:00 Mechanical Ventilator 06/27/19 15:35 70 06/27/19 15:30 62 23 30 I&O Intake and Output 06/27/19 06/28/19 19:00 07:00 Intake Total 1660 ml 1300 ml Output Total 1310 ml 1050 ml Balance 350 ml 250 ml Intake Free Water 100 ml 150 ml IV Total 830 ml 670 ml Tube Feeding 480 ml 480 ml Blood Product 250 ml Output Urine Total 1300 ml 850 ml Stool Total 10 ml 200 ml Dressing: other Wound: other Drains: other Cardiovascular: RSR Respiratory: decreased breath sounds Abdomen: soft, present bowel sounds, non-distended Extremities: no tenderness, no cyanosis Laboratory Tests Test 06/28/19 03:30 White Blood Count 11.3 K/UL (4.8-10.8) H Red Blood Count 3.31 M/UL (4.70-6.10) L Hemoglobin 9.2 G/DL (14.2-18.0) L Hematocrit 27.3 % (42.0-52.0) L Mean Corpuscular Volume 83 FL (80-99) Mean Corpuscular Hemoglobin 27.9 PG (27.0-31.0) Mean Corpuscular Hemoglobin Concent 33.8 G/DL (32.0-36.0) Red Cell Distribution Width 14.3 % (11.6-14.8) Platelet Count 508 K/UL (150-450) H Mean Platelet Volume 5.5 FL (6.5-10.1) L Neutrophils (%) (Auto) 78.7 % (45.0-75.0) H Lymphocytes (%) (Auto) 12.6 % (20.0-45.0) L Monocytes (%) (Auto) 6.0 % (1.0-10.0) Eosinophils (%) (Auto) 2.4 % (0.0-3.0) Basophils (%) (Auto) 0.3 % (0.0-2.0) Sodium Level 141 MMOL/L (136-145) Potassium Level 2.7 MMOL/L (3.5-5.1) *L Chloride Level 105 MMOL/L (98-107) Carbon Dioxide Level 24 MMOL/L (21-32) Anion Gap 13 mmol/L (5-15) Blood Urea Nitrogen 6 mg/dL (7-18) L Creatinine 0.5 MG/DL (0.55-1.30) L Estimat Glomerular Filtration Rate > 60 mL/min (>60) Glucose Level 250 MG/DL (74-106) H Calcium Level 8.8 MG/DL (8.5-10.1) Phosphorus Level 8.0 MG/DL (2.5-4.9) H Magnesium Level 1.5 MG/DL (1.8-2.4) L Total Bilirubin 0.3 MG/DL (0.2-1.0) Aspartate Amino Transf (AST/SGOT) 13 U/L (15-37) L Alanine Aminotransferase (ALT/SGPT) 15 U/L (12-78) Alkaline Phosphatase 81 U/L (46-116) Total Protein 6.5 G/DL (6.4-8.2) Albumin 1.6 G/DL (3.4-5.0) L Globulin 4.9 g/dL Albumin/Globulin Ratio 0.3 (1.0-2.7) L Plan Problems: (1) Decubitus skin ulcer Assessment & Plan: Pt presented on admission with multiple pressure injuries and Moisture Associated Skin damage Buttocks and Bilateral groin. Both earlobes including medial canals noted to have scaly red plaques and and small lesions. Full thickness stage 3 pressure injury posterior neck under collar of trach. Base of wound has 25% slough,75% beefy red .Small amt serosanguineous exudate noted. Borders are macerated. Surrounding skin is clean and dry. Moisture Associated Skin Damage noted to bilateral groin areas,Buttocks and bilateral ischium. Skin is grossly erythematous and denuded with scattered satellite lesions. Full thickness stage 3 sacral pressure injury. Base of wound is 25% necrotic ,30 % slough ,otherwise beefy red with small amt serous exudate.Borders are macerated.(L)(L)8.5cm x (W)10cm. Periwound MASD. Full Thickness stage 3 pressure injury R trochanter. Base of wound 80% beefy red ,20% slough. Small amt serous exudate. Borders are macerated(L)3cm x (W) 3.2cm. No odor noted.Periwound MASD. Full Thickness stage 3 pressure injury R ischium. Base of wound is 25% necrotic , beefy red with scattered slough. Borders are macerated. Small amt serous exudate noted. No odor noted.(L)5.3cm x (W)3.9cm. Periwound MASD. Full thickness stage 3 pressure injury L Ischium. Base of wound is beefy red and moist. Borders are macerated. Small amt serous exudate noted.(L)4cm x (W) 3.2cm x (D)0.2cm. Both heels are pink and easily blanchable. Bilat foot drop noted. Tx.Plan: Cleanse wounds on Buttocks, sacrum, ishium, trochanter with Saline. Apply Therahoney to wounds. Apply Triad Paste periwound to cover erythematous skin. Cover with Optifoam drsgs Daily and prn. Apply Phytoplex Lotion to R and L ears daily and prn. Apply Cavilon Skin Barrier to Both heels. Cover each heel with Optifoam drsg. Change every 7 days and prn. APM/MAICOL Mattress overlay. Reposition at least every 2hours or as tolerated. Off-load heels with pillow. Place pillow between knees. (2) Feeding by G-tube Assessment & Plan: DAILY ESTIMATED NEEDS: Needs based on Critical care, wounds 73kg 22-30 kcals/kg 3597-9602 total kcals 1.25-2 g protein/kg 91-146 g total protein 25-30 mL/kg 6147-4495 total fluid mLs NUTRITION DIAGNOSIS: 1) Increased kcal/pro needs R/T wound healing as evidenced by pt admitted w/ multiple wounds, sacral, BL buttocks full thickness. 2) Swallowing difficulty R/T respiratory status as evidenced by pt trach/PEG dep for all nutritional needs. CURRENT TF: Glucerna 1.2 @40/hr ENTERAL NUTRITION RECOMMENDATIONS: Glucerna 1.5 @ 50ml/hr x 24 hrs + Prosource x1 to provide 1200ml, 1800kcal, 99g + 11g prot, 911ml free water - Rec TF change to Glucerna 1.5 to better meet est kcal and protein needs - Start @ 20ml/hr x 6 hrs, increase by 10ml every 4-6 hrs to goal rate as tolerated - HOB 30-45 degrees/ water flush per MD ADDITIONAL RECOMMENDATIONS: 1. Maintain calibrated bed scale for accurate CBW 2. Wound healing: Add Christian 1pkt BID F/up w/ WC RN eval 3. Monitor lytes daily, replete as needed Elevated Na (150), rec increase water flushes 4. F/up w/ H&P (3) Status post tracheostomy Assessment & Plan: need to monitor trach collar closely as worsening wound keep protected as above will monitor Steve Franks Jun 28, 2019 14:19
--- NOTE | 2019-06-28 14:43 | General Progress Note ---
Assessment/Plan Assessment/Plan: GI: Plan Problems: (1) Iron deficiency anemia (2) Severe anemia (3) Feeding by G-tube (4) Ventilator dependent (5) Chronic vegetative state (6) h/o esophagitis (7) low Mg and K (8) urolithiasis Recommendations AP CT evaluate for pancreatitis>>>reviewed We will consider endoscopy given patient presented with hemoglobin 6.9 and occult blood stool positive, repeat OB stool for now. Monitor H&H, as needed transfusions PPI repeat lipase levels for tomorrow, We will follow with additional recommendations bowel regimen replace K / Mg Subjective Allergies: Coded Allergies: NO KNOWN DRUG ALLERGIES (Unverified Allergy, Unknown, 06/28/15) Subjective Above noted bed bound non communicative on trach / vent Objective Last 24 Hour Vital Signs Date Time Temp Pulse Resp B/P (MAP) Pulse Ox O2 Delivery O2 Flow Rate FiO2 06/28/19 13:18 65 28 30 06/28/19 12:00 99.9 88 27 112/75 (87) 98 06/28/19 12:00 30 06/28/19 12:00 Mechanical Ventilator 06/28/19 11:45 66 06/28/19 11:26 57 29 30 06/28/19 09:06 62 20 30 06/28/19 08:59 130/78 06/28/19 08:00 Mechanical Ventilator 06/28/19 08:00 30 06/28/19 08:00 98.2 64 28 130/78 (95) 97 06/28/19 07:53 69 06/28/19 07:27 69 25 30 06/28/19 04:33 69 26 30 06/28/19 04:00 30 06/28/19 04:00 Mechanical Ventilator 06/28/19 04:00 97.8 61 26 122/86 (98) 99 06/28/19 03:55 70 06/28/19 02:50 69 25 30 06/28/19 01:03 65 23 30 06/28/19 00:00 Mechanical Ventilator 06/28/19 00:00 96.8 66 25 121/76 (91) 98 06/27/19 23:53 67 06/27/19 23:09 67 22 30 06/27/19 21:08 64 24 30 06/27/19 20:52 123/80 06/27/19 20:00 Mechanical Ventilator 06/27/19 20:00 99.5 70 20 123/80 (94) 100 06/27/19 20:00 30 06/27/19 19:25 72 06/27/19 19:08 66 24 30 06/27/19 17:51 61 24 30 06/27/19 16:00 98.2 73 20 99/66 (77) 100 06/27/19 16:00 30 06/27/19 16:00 Mechanical Ventilator 06/27/19 15:35 70 06/27/19 15:30 62 23 30 Intake and Output 06/27/19 06/28/19 19:00 07:00 Intake Total 1660 ml 1300 ml Output Total 1310 ml 1050 ml Balance 350 ml 250 ml Intake Free Water 100 ml 150 ml IV Total 830 ml 670 ml Tube Feeding 480 ml 480 ml Blood Product 250 ml Output Urine Total 1300 ml 850 ml Stool Total 10 ml 200 ml Laboratory Tests 06/28/19 03:30: White Blood Count 11.3H, Red Blood Count 3.31L, Hemoglobin 9.2L, Hematocrit 27.3L, Mean Corpuscular Volume 83, Mean Corpuscular Hemoglobin 27.9, Mean Corpuscular Hemoglobin Concent 33.8, Red Cell Distribution Width 14.3, Platelet Count 508H, Mean Platelet Volume 5.5L, Neutrophils (%) (Auto) 78.7H, Lymphocytes (%) (Auto) 12.6L, Monocytes (%) (Auto) 6.0, Eosinophils (%) (Auto) 2.4, Basophils (%) (Auto) 0.3, Sodium Level 141, Potassium Level 2.7*L, Chloride Level 105, Carbon Dioxide Level 24, Anion Gap 13, Blood Urea Nitrogen 6L, Creatinine 0.5L, Estimat Glomerular Filtration Rate > 60, Glucose Level 250H , Calcium Level 8.8, Phosphorus Level 8.0H, Magnesium Level 1.5L, Total Bilirubin 0.3, Aspartate Amino Transf (AST/SGOT) 13L, Alanine Aminotransferase ( ALT/SGPT) 15, Alkaline Phosphatase 81, Total Protein 6.5, Albumin 1.6L, Globulin 4.9, Albumin/Globulin Ratio 0.3L Height (Feet): 5 Height (Inches): 7.00 Weight (Pounds): 161 Objective Debilitated man NCAT (+) trach coarse BS RR abd soft (+) GT no edema Yaritza Joy MD Jun 28, 2019 14:43
[2019-06-28] MEDS ORDERED: NS 275ml ONE (15:27)
[2019-06-28 16:00] VITALS: BP 109/75
--- NOTE | 2019-06-28 19:05 | NUR ---
HAND-OFF: Report given to Ky Coello RN.
--- NOTE | 2019-06-28 19:06 | NUR ---
NURSE NOTES: Received patient from MANUEL Ramirez. Patient is obtunded, vss, with no acute distress. Track to vent Protex 8, AC 12, TV 500, Fio2 30, and PEEP of 5. Patient on pvc monitor, running Glucerna 1.2 40cc/hr, and IV sites on right subclavian triple lumen running TKO. Bed at its lowest position, call ight in reach and x3 bed rails are up. Family at bed side.
[2019-06-28 20:00] VITALS: BP 119/74
[2019-06-28] MEDS: Dyna-Hex 2% Top Sol 2oz TOPIC SCH (20:18)
[2019-06-28] MEDS: Iron Sucrose 100 MG in NS 55 ML IV SCH (20:19)
--- NOTE | 2019-06-28 23:30 | Progress Note ---
DATE: 06/28/2019 SUBJECTIVE: The patient is awake and alert with low-grade fever without tachycardia. PHYSICAL EXAMINATION: VITAL SIGNS: Blood pressure 120/75, pulse is 88, respirations 27, and temperature 99.9. HEENT: Eyes were normal. ENT, mucous membranes moist and intact. NECK: Supple with no JVD without lymph nodes. Tracheostomy site is clean. LUNGS: Clear without rhonchi, rales, or wheezing. HEART: Normal sounds with regular beats. There is no tachycardia at rest. ABDOMEN: Soft, nontender, with normal bowel sounds. EXTREMITIES: Warm without cyanosis, clubbing, or edema. LABORATORY AND DIAGNOSTIC DATA: His hemoglobin is 9.2, hematocrit 27.3 with MCV of 83, WBC of 11.3, and platelets 508,000. His BUN and creatinine are 6 and 0.5 respectively. His sodium is 141, potassium 2.7, chloride 105, and CO2 is 24. IMPRESSION: The patient is hypokalemic. He received 40 mEq of KCl via G-tube. His BUN and creatinine are 12 and 0.5 respectively. Sodium is 143, potassium . The patient's metabolic acidosis is now resolved. His bicarbonate is 24. It was 16 on 06/25/2019. It was 22 on 06/26/2019. It is now 24. He is hypokalemic, and 40 mEq of KCl will be given. ABG will be done in a.m. His chest x-ray is unchanged with bilateral infiltrates for the last several days though the patient's clinical condition has improved. Repeat laboratory tests will be done in a.m. Liset Wallace M.D. DR: Sg JOB#: [id number] CC:
[2019-06-29] VITALS (7 sets, daily range): BP systolic 92–127; BP diastolic 56–94
[2019-06-29] MEDS: NovoLOG Insulin Flexpen SUBQ SCH ×4 (00:17→17:13)
--- NOTE | 2019-06-29 04:20 | NUR ---
NURSE NOTES: Sacral open wound with full thickness dressed and pictures taken. Left and right buttocks open wound is with full thickness, pictures taken. Left and right ear closed wound DTI, pictures taken. Right subclavian open blister found under PICC dressing. Wound pictures taken with Triad still on skin. Attempts to remove triad to expose more area failed. The removal of Triad would remove fragile skin so further removal of Triad was stopped. Brown spots in the picture are Therahoney from the new dressing.
[2019-06-29 04:51] LABS: BASOPHILS % (AUTO) 0.4 % (0.0-2.0); EOSINOPHILS % (AUTO) 2.5 % (0.0-3.0); HEMATOCRIT 27.3 % (42.0-52.0); HEMOGLOBIN 9.2 G/DL (14.2-18.0); LYMPHOCYTES % (AUTO) 16.1 % (20.0-45.0); MEAN CORPUSCULAR VOLUME 83 FL (80-99); MONOCYTES % (AUTO) 5.5 % (1.0-10.0); NEUTROPHILS % (AUTO) 75.5 % (45.0-75.0); PLATELET COUNT 522 K/UL (150-450); RED BLOOD COUNT 3.28 M/UL (4.70-6.10); RED CELL DISTRIBUTION WIDTH 14.1 % (11.6-14.8); WHITE BLOOD COUNT 10.4 K/UL (4.8-10.8)
[2019-06-29 05:10] LABS: AMYLASE 79 U/L (25-115)
[2019-06-29 05:33] LABS: ALANINE AMINOTRANSFERASE 13 U/L (12-78); ALBUMIN 1.6 G/DL (3.4-5.0); ALBUMIN/GLOBULIN RATIO 0.3 (1.0-2.7); ALKALINE PHOSPHATASE 81 U/L (46-116); ANION GAP 9 mmol/L (5-15); ASPARTATE AMINO TRANSFERASE 13 U/L (15-37); BILIRUBIN,TOTAL 0.2 MG/DL (0.2-1.0); BLOOD UREA NITROGEN 6 mg/dL (7-18); CALCIUM 8.7 MG/DL (8.5-10.1); CARBON DIOXIDE 25 MMOL/L (21-32); CHLORIDE 107 MMOL/L (98-107); CREATININE 0.5 MG/DL (0.55-1.30); PHOSPHORUS 2.3 MG/DL (2.5-4.9); POTASSIUM 3.3 MMOL/L (3.5-5.1); SODIUM 141 MMOL/L (136-145)
[2019-06-29] MEDS: Meropenem 1 GM in NS 55 ML IVPB SCH ×3 (05:48→22:00)
--- NOTE | 2019-06-29 07:23 | NUR ---
HAND-OFF: Report given to Daisha Christianson RN.
--- NOTE | 2019-06-29 07:25 | NUR ---
NURSE NOTES: Report received from Priyank Coello RN.Pt resting in bed asleep noted no resp distress,on vent at current ordered settings tolerating well,no signs of pain or discomfort S-R on the monitor, GTF Glucerna 1.2 at 40 ml/hr , no residual noted,Waddell cath draining yellow urine, Rectal tube patent draining to liquid brown stools ,skin warm and dry with iv heplock to RFA and RT SC TLC,SR up x2 HOB elevated will continue with plans of care.
[2019-06-29] MEDS: Pantoprazole Inj IVP SCH ×2 (09:30→20:30)
[2019-06-29] MEDS: Spironolactone 25mg tab GT SCH ×2 (09:31→17:17)
[2019-06-29] MEDS: Enalapril 2.5mg tab ORAL SCH ×2 (09:32→20:30)
[2019-06-29] MEDS ORDERED: 1/2 NS 1000ml IV ONE (10:33)
[2019-06-29] MEDS ORDERED: NS 275ml ONE ×2 (10:33→10:56)
--- NOTE | 2019-06-29 10:40 | General Progress Note ---
Assessment/Plan Assessment/Plan: GI: Plan Problems: (1) Iron deficiency anemia (2) Severe anemia (3) Feeding by G-tube (4) Ventilator dependent (5) Chronic vegetative state (6) h/o esophagitis (7) low Mg and K (8) urolithiasis Recommendations AP CT evaluate for pancreatitis>>>reviewed We will consider endoscopy given patient presented with hemoglobin 6.9 and occult blood stool positive, repeat OB stool for now. Monitor H&H, as needed transfusions PPI We will follow with additional recommendations bowel regimen replace lytes PRN Subjective Allergies: Coded Allergies: NO KNOWN DRUG ALLERGIES (Unverified Allergy, Unknown, 06/28/15) Subjective Above noted bed bound non communicative on trach / vent Objective Last 24 Hour Vital Signs Date Time Temp Pulse Resp B/P (MAP) Pulse Ox O2 Delivery O2 Flow Rate FiO2 06/29/19 10:20 100.0 06/29/19 09:32 92/56 06/29/19 09:09 65 25 30 06/29/19 08:00 100.9 66 16 92/56 (68) 99 06/29/19 07:28 59 16 30 06/29/19 04:55 65 23 30 06/29/19 04:00 Mechanical Ventilator 06/29/19 04:00 30 06/29/19 04:00 98.2 60 20 108/63 (78) 100 06/29/19 03:38 60 06/29/19 02:47 67 23 30 06/29/19 00:32 62 22 30 06/29/19 00:00 99.5 66 22 123/75 (91) 99 06/29/19 00:00 Mechanical Ventilator 06/28/19 23:43 68 06/28/19 23:00 64 25 30 06/28/19 21:05 69 24 30 06/28/19 20:21 119/74 06/28/19 20:00 98.2 61 24 119/74 (89) 100 06/28/19 20:00 30 06/28/19 20:00 Mechanical Ventilator 06/28/19 19:34 67 06/28/19 19:25 65 28 30 06/28/19 17:05 59 29 30 06/28/19 16:00 97.9 69 25 109/75 (86) 98 06/28/19 16:00 Mechanical Ventilator 06/28/19 16:00 30 06/28/19 15:32 63 06/28/19 15:15 58 19 30 06/28/19 13:18 65 28 30 06/28/19 12:00 99.9 88 27 112/75 (87) 98 06/28/19 12:00 30 06/28/19 12:00 Mechanical Ventilator 06/28/19 11:45 66 06/28/19 11:26 57 29 30 Intake and Output 06/28/19 06/29/19 19:00 07:00 Intake Total 1235 ml 800 ml Output Total 350 ml 1100 ml Balance 885 ml -300 ml Intake Free Water 150 ml 150 ml IV Total 605 ml 170 ml Tube Feeding 480 ml 480 ml Output Urine Total 250 ml 1100 ml Stool Total 100 ml 0 ml Laboratory Tests 06/29/19 03:06: White Blood Count 10.4, Red Blood Count 3.28L, Hemoglobin 9.2L, Hematocrit 27.3L , Mean Corpuscular Volume 83, Mean Corpuscular Hemoglobin 28.0, Mean Corpuscular Hemoglobin Concent 33.7, Red Cell Distribution Width 14.1, Platelet Count 522H, Mean Platelet Volume 5.8L, Neutrophils (%) (Auto) 75.5H, Lymphocytes (%) (Auto) 16.1L, Monocytes (%) (Auto) 5.5, Eosinophils (%) (Auto) 2.5, Basophils (%) (Auto) 0.4, Sodium Level 141, Potassium Level 3.3L, Chloride Level 107, Carbon Dioxide Level 25, Anion Gap 9, Blood Urea Nitrogen 6L, Creatinine 0.5L, Estimat Glomerular Filtration Rate > 60, Glucose Level 230H, Uric Acid 3.5, Calcium Level 8.7, Phosphorus Level 2.3L, Magnesium Level 1.9, Total Bilirubin 0.2, Aspartate Amino Transf (AST/SGOT) 13L, Alanine Aminotransferase (ALT/SGPT) 13, Alkaline Phosphatase 81, C-Reactive Protein, Quantitative 4.1H, Pro-B-Type Natriuretic Peptide 359H, Total Protein 6.6, Albumin 1.6L, Globulin 5.0, Albumin/Globulin Ratio 0.3L, Amylase Level 79, Lipase 866H Height (Feet): 5 Height (Inches): 7.00 Weight (Pounds): 169 Objective Debilitated man NCAT (+) trach coarse BS RR abd soft (+) GT no edema Yaritza Joy MD Jun 29, 2019 10:40
[2019-06-29] MEDS ORDERED: Tubing IV Secondary IV ONE (10:56)
--- NOTE | 2019-06-29 11:11 | Nephrology Progress Note ---
Assessment/Plan Problem List: (1) Metabolic acidosis (2) Acute blood loss anemia (3) Hypokalemia (4) Chronic respiratory failure Assessment Metabolic Acidosis HypoKalemia HyperNatremia Severe Anemia Other Conditions: (1) Nosocomial pneumonia (2) Sepsis (3) Ventilator dependent (4) Chronic vegetative state (5) COPD (chronic obstructive pulmonary disease) (6) Feeding by G-tube (7) Diabetes mellitus, type II (8) Cerebral vascular disease (9) Seizure disorder (10) Chronic complete quadriplegia Plan stop stool softners and laxatives add aldactone K supplement as needed mag supplement DC Bicitra GT D5W IV fluid Protonix IV watch H&H Transfusion as needed per orders Subjective ROS Limited/Unobtainable: Yes Objective Objective Last 24 Hour Vital Signs Date Time Temp Pulse Resp B/P (MAP) Pulse Ox O2 Delivery O2 Flow Rate FiO2 06/29/19 10:20 100.0 06/29/19 09:32 92/56 06/29/19 09:09 65 25 30 06/29/19 08:00 100.9 66 16 92/56 (68) 99 06/29/19 08:00 Mechanical Ventilator 06/29/19 08:00 73 06/29/19 08:00 30 06/29/19 07:28 59 16 30 06/29/19 04:55 65 23 30 06/29/19 04:00 Mechanical Ventilator 06/29/19 04:00 30 06/29/19 04:00 98.2 60 20 108/63 (78) 100 06/29/19 03:38 60 06/29/19 02:47 67 23 30 06/29/19 00:32 62 22 30 06/29/19 00:00 99.5 66 22 123/75 (91) 99 06/29/19 00:00 Mechanical Ventilator 06/28/19 23:43 68 06/28/19 23:00 64 25 30 06/28/19 21:05 69 24 30 06/28/19 20:21 119/74 06/28/19 20:00 98.2 61 24 119/74 (89) 100 06/28/19 20:00 30 06/28/19 20:00 Mechanical Ventilator 06/28/19 19:34 67 06/28/19 19:25 65 28 30 06/28/19 17:05 59 29 30 06/28/19 16:00 97.9 69 25 109/75 (86) 98 06/28/19 16:00 Mechanical Ventilator 06/28/19 16:00 30 06/28/19 15:32 63 06/28/19 15:15 58 19 30 06/28/19 13:18 65 28 30 06/28/19 12:00 99.9 88 27 112/75 (87) 98 06/28/19 12:00 30 06/28/19 12:00 Mechanical Ventilator 06/28/19 11:45 66 06/28/19 11:26 57 29 30 Intake and Output 06/28/19 06/29/19 19:00 07:00 Intake Total 1235 ml 800 ml Output Total 350 ml 1100 ml Balance 885 ml -300 ml Intake Free Water 150 ml 150 ml IV Total 605 ml 170 ml Tube Feeding 480 ml 480 ml Output Urine Total 250 ml 1100 ml Stool Total 100 ml 0 ml Current Medications Medications (Trade) Dose Ordered Sig/Tony Route PRN Reason Start Time Stop Time Status Last Admin Dose Admin Acetaminophen (Tylenol) 650 mg Q4H PRN GT Mild Pain/Temp > 100.5 06/26/19 05:45 07/22/19 05:44 06/29/19 09:50 Chlorhexidine Gluconate (Kay-Hex 2%) 1 applic DAILY@2000 TOPIC 06/26/19 20:00 07/22/19 19:59 06/28/19 20:18 Dextrose (Dextrose 50%) 25 ml Q30M PRN IV Hypoglycemia 06/26/19 05:30 07/21/19 21:59 Dextrose (Dextrose 50%) 50 ml Q30M PRN IV Hypoglycemia 06/26/19 05:30 07/21/19 21:59 Enalapril Maleate (Vasotec) 2.5 mg EVERY 12 HOURS ORAL 06/26/19 21:00 07/26/19 20:59 06/29/19 09:32 Insulin Aspart (NovoLOG) Q6HR SUBQ 06/26/19 06:00 07/22/19 00:00 06/29/19 05:46 Iron Sucrose 100 mg/Sodium Chloride 60 ml @ 240 mls/hr BEDTIME IV 06/26/19 21:00 06/29/19 21:14 06/28/19 20:19 Levetiracetam (Keppra) 500 mg Q12HR GT 06/26/19 09:00 07/22/19 08:59 06/29/19 09:32 Meropenem 1 gm/ Sodium Chloride 55 ml @ 110 mls/hr Q8HR IVPB 06/26/19 14:00 07/01/19 13:59 06/29/19 05:48 Pantoprazole (Protonix) 40 mg Q12HR IVP 06/26/19 09:00 07/22/19 06:29 06/29/19 09:30 Polyethylene Glycol (Miralax) 17 gm PRN PRN GT Constipation 06/26/19 05:45 07/21/19 05:44 Potassium Chloride (K-Dur) 40 meq DAILY ORAL 06/29/19 09:00 07/28/19 14:14 06/29/19 09:31 Spironolactone (Aldactone) 25 mg BID GT 06/28/19 09:00 07/27/19 08:59 06/29/19 09:31 Laboratory Tests 06/29/19 03:06: White Blood Count 10.4, Red Blood Count 3.28L, Hemoglobin 9.2L, Hematocrit 27.3L , Mean Corpuscular Volume 83, Mean Corpuscular Hemoglobin 28.0, Mean Corpuscular Hemoglobin Concent 33.7, Red Cell Distribution Width 14.1, Platelet Count 522H, Mean Platelet Volume 5.8L, Neutrophils (%) (Auto) 75.5H, Lymphocytes (%) (Auto) 16.1L, Monocytes (%) (Auto) 5.5, Eosinophils (%) (Auto) 2.5, Basophils (%) (Auto) 0.4, Sodium Level 141, Potassium Level 3.3L, Chloride Level 107, Carbon Dioxide Level 25, Anion Gap 9, Blood Urea Nitrogen 6L, Creatinine 0.5L, Estimat Glomerular Filtration Rate > 60, Glucose Level 230H, Uric Acid 3.5, Calcium Level 8.7, Phosphorus Level 2.3L, Magnesium Level 1.9, Total Bilirubin 0.2, Aspartate Amino Transf (AST/SGOT) 13L, Alanine Aminotransferase (ALT/SGPT) 13, Alkaline Phosphatase 81, C-Reactive Protein, Quantitative 4.1H, Pro-B-Type Natriuretic Peptide 359H, Total Protein 6.6, Albumin 1.6L, Globulin 5.0, Albumin/Globulin Ratio 0.3L, Amylase Level 79, Lipase 866H Height (Feet): 5 Height (Inches): 7.00 Weight (Pounds): 169 General Appearance: no apparent distress EENT: other - trach-vent Cardiovascular: bradycardia Respiratory/Chest: decreased breath sounds Abdomen: distended Ricky Green MD Jun 29, 2019 11:11
--- NOTE | 2019-06-29 12:00 | NUR ---
NURSE NOTES: Pt turned and reposition,tracheal oral secretions suctioned.
--- NOTE | 2019-06-29 12:09 | Hematology/Onc Progress Note ---
Assessment/Plan Assessment/Plan ASSESSMENT AND RECOMMENDATIONS: # Anemia due to chronic disease v gi bleed, hgb downtrending since admission --> last time I saw this patient, hgb was 13.1, this was back in 2018 --> hgb trend 9-->8.1-->6.9-->12-->7.2-->7.9-->9.2 --> prbc for 06/24, 06/25, 06/27 --> iv iron x 5 days given, low sat and ferritin relative to inflammatory process - through 06/29 --> stool ob negative # Coagulopathy is likely due to dic --> vit k as as need, ffp as well --> if worsening coagulopathy and bleeding given ffp --> at this time treatment of underlying process # Leukocytosis is likely related to underyling Pna --> has been started on abx --> now IMPROVEd --> abcx: saulo # PNA with infiltrates --> with sepsis poa, is on broad spectrum abx --> on pressors in icu on adm--> now sdu # Chronic cholecystitis s/p cholecystostomy tube in the past # Chronic resp failure vent/trach dependant # Asthma/COPD # HTN # Dm2 # Dementia # CVA s/p vegetative state # Dysphagia s/p G-tube --> replace as per gi # Seizure disorder # SNF resident GREATLY APPRECIATE CONSULTATION. Subjective Allergies: Coded Allergies: NO KNOWN DRUG ALLERGIES (Unverified Allergy, Unknown, 06/28/15) Subjective 06/25: no major changes, labs noted, hgb lower, dw MANUEL [place], needs blood, also gi consulted, in icu 06/26: on vent/trach, as needed prbc when labs come back 06/27: transferred to sdu, obtunded, hgb 7.9, blood ordered 06/29: in sdu, vent, no acute distress, last bag of iv iron today, hgb 9.2 Objective Objective Current Medications Medications (Trade) Dose Ordered Sig/Tony Route PRN Reason Start Time Stop Time Status Last Admin Dose Admin Acetaminophen (Tylenol) 650 mg Q4H PRN GT Mild Pain/Temp > 100.5 06/26/19 05:45 07/22/19 05:44 06/29/19 09:50 Chlorhexidine Gluconate (Kay-Hex 2%) 1 applic DAILY@2000 TOPIC 06/26/19 20:00 07/22/19 19:59 06/28/19 20:18 Dextrose (Dextrose 50%) 25 ml Q30M PRN IV Hypoglycemia 06/26/19 05:30 07/21/19 21:59 Dextrose (Dextrose 50%) 50 ml Q30M PRN IV Hypoglycemia 06/26/19 05:30 07/21/19 21:59 Enalapril Maleate (Vasotec) 2.5 mg EVERY 12 HOURS ORAL 06/26/19 21:00 07/26/19 20:59 06/29/19 09:32 Insulin Aspart (NovoLOG) Q6HR SUBQ 06/26/19 06:00 07/22/19 00:00 06/29/19 05:46 Iron Sucrose 100 mg/Sodium Chloride 60 ml @ 240 mls/hr BEDTIME IV 06/26/19 21:00 06/29/19 21:14 06/28/19 20:19 Levetiracetam (Keppra) 500 mg Q12HR GT 06/26/19 09:00 07/22/19 08:59 06/29/19 09:32 Meropenem 1 gm/ Sodium Chloride 55 ml @ 110 mls/hr Q8HR IVPB 06/26/19 14:00 07/01/19 13:59 06/29/19 05:48 Pantoprazole (Protonix) 40 mg Q12HR IVP 06/26/19 09:00 07/22/19 06:29 06/29/19 09:30 Polyethylene Glycol (Miralax) 17 gm PRN PRN GT Constipation 06/26/19 05:45 07/21/19 05:44 Potassium Chloride (K-Dur) 40 meq DAILY ORAL 06/29/19 09:00 07/28/19 14:14 06/29/19 09:31 Spironolactone (Aldactone) 25 mg BID GT 06/28/19 09:00 07/27/19 08:59 06/29/19 09:31 Last 24 Hour Vital Signs Date Time Temp Pulse Resp B/P (MAP) Pulse Ox O2 Delivery O2 Flow Rate FiO2 06/29/19 11:16 54 20 30 06/29/19 10:20 100.0 06/29/19 09:32 92/56 06/29/19 09:09 65 25 30 06/29/19 08:00 100.9 66 16 92/56 (68) 99 06/29/19 08:00 Mechanical Ventilator 06/29/19 08:00 73 06/29/19 08:00 30 06/29/19 07:28 59 16 30 06/29/19 04:55 65 23 30 06/29/19 04:00 Mechanical Ventilator 06/29/19 04:00 30 06/29/19 04:00 98.2 60 20 108/63 (78) 100 06/29/19 03:38 60 06/29/19 02:47 67 23 30 06/29/19 00:32 62 22 30 06/29/19 00:00 99.5 66 22 123/75 (91) 99 06/29/19 00:00 Mechanical Ventilator 06/28/19 23:43 68 06/28/19 23:00 64 25 30 06/28/19 21:05 69 24 30 06/28/19 20:21 119/74 06/28/19 20:00 98.2 61 24 119/74 (89) 100 06/28/19 20:00 30 06/28/19 20:00 Mechanical Ventilator 06/28/19 19:34 67 06/28/19 19:25 65 28 30 06/28/19 17:05 59 29 30 06/28/19 16:00 97.9 69 25 109/75 (86) 98 06/28/19 16:00 Mechanical Ventilator 06/28/19 16:00 30 06/28/19 15:32 63 06/28/19 15:15 58 19 30 06/28/19 13:18 65 28 30 06/28/19 12:00 99.9 88 27 112/75 (87) 98 06/28/19 12:00 30 06/28/19 12:00 Mechanical Ventilator 06/28/19 11:45 66 06/28/19 11:26 57 29 30 06/28/19 09:06 62 20 30 06/28/19 08:59 130/78 06/28/19 08:00 Mechanical Ventilator 06/28/19 08:00 30 06/28/19 08:00 98.2 64 28 130/78 (95) 97 06/28/19 07:53 69 06/28/19 07:27 69 25 30 06/28/19 04:33 69 26 30 06/28/19 04:00 30 06/28/19 04:00 Mechanical Ventilator 06/28/19 04:00 97.8 61 26 122/86 (98) 99 06/28/19 03:55 70 06/28/19 02:50 69 25 30 06/28/19 01:03 65 23 30 06/28/19 00:00 Mechanical Ventilator 06/28/19 00:00 96.8 66 25 121/76 (91) 98 06/27/19 23:53 67 06/27/19 23:09 67 22 30 06/27/19 21:08 64 24 30 06/27/19 20:52 123/80 06/27/19 20:00 Mechanical Ventilator 06/27/19 20:00 99.5 70 20 123/80 (94) 100 06/27/19 20:00 30 06/27/19 19:25 72 06/27/19 19:08 66 24 30 06/27/19 17:51 61 24 30 06/27/19 16:00 98.2 73 20 99/66 (77) 100 06/27/19 16:00 30 06/27/19 16:00 Mechanical Ventilator 06/27/19 15:35 70 06/27/19 15:30 62 23 30 06/27/19 13:30 81 25 30 Intake and Output 06/28/19 06/29/19 19:00 07:00 Intake Total 1235 ml 800 ml Output Total 350 ml 1100 ml Balance 885 ml -300 ml Intake Free Water 150 ml 150 ml IV Total 605 ml 170 ml Tube Feeding 480 ml 480 ml Output Urine Total 250 ml 1100 ml Stool Total 100 ml 0 ml Labs Test 06/27/19 03:15 06/27/19 03:30 06/28/19 03:30 06/29/19 03:06 Stool Occult Blood Negative (NEGATIVE) White Blood Count 10.9 K/UL (4.8-10.8) 11.3 K/UL (4.8-10.8) 10.4 K/UL (4.8-10.8) Red Blood Count 2.86 M/UL (4.70-6.10) 3.31 M/UL (4.70-6.10) 3.28 M/UL (4.70-6.10) Hemoglobin 7.9 G/DL (14.2-18.0) 9.2 G/DL (14.2-18.0) 9.2 G/DL (14.2-18.0) Hematocrit 23.2 % (42.0-52.0) 27.3 % (42.0-52.0) 27.3 % (42.0-52.0) Mean Corpuscular Volume 81 FL (80-99) 83 FL (80-99) 83 FL (80-99) Mean Corpuscular Hemoglobin 27.6 PG (27.0-31.0) 27.9 PG (27.0-31.0) 28.0 PG (27.0-31.0) Mean Corpuscular Hemoglobin Concent 33.9 G/DL (32.0-36.0) 33.8 G/DL (32.0-36.0) 33.7 G/DL (32.0-36.0) Red Cell Distribution Width 14.0 % (11.6-14.8) 14.3 % (11.6-14.8) 14.1 % (11.6-14.8) Platelet Count 529 K/UL (150-450) 508 K/UL (150-450) 522 K/UL (150-450) Mean Platelet Volume 5.6 FL (6.5-10.1) 5.5 FL (6.5-10.1) 5.8 FL (6.5-10.1) Neutrophils (%) (Auto) % (45.0-75.0) 78.7 % (45.0-75.0) 75.5 % (45.0-75.0) Lymphocytes (%) (Auto) % (20.0-45.0) 12.6 % (20.0-45.0) 16.1 % (20.0-45.0) Monocytes (%) (Auto) % (1.0-10.0) 6.0 % (1.0-10.0) 5.5 % (1.0-10.0) Eosinophils (%) (Auto) % (0.0-3.0) 2.4 % (0.0-3.0) 2.5 % (0.0-3.0) Basophils (%) (Auto) % (0.0-2.0) 0.3 % (0.0-2.0) 0.4 % (0.0-2.0) Sodium Level 141 MMOL/L (136-145) 141 MMOL/L (136-145) 141 MMOL/L (136-145) Potassium Level 2.7 MMOL/L (3.5-5.1) 2.7 MMOL/L (3.5-5.1) 3.3 MMOL/L (3.5-5.1) Chloride Level 105 MMOL/L (98-107) 105 MMOL/L (98-107) 107 MMOL/L (98-107) Carbon Dioxide Level 24 MMOL/L (21-32) 24 MMOL/L (21-32) 25 MMOL/L (21-32) Anion Gap 12 mmol/L (5-15) 13 mmol/L (5-15) 9 mmol/L (5-15) Blood Urea Nitrogen 7 mg/dL (7-18) 6 mg/dL (7-18) 6 mg/dL (7-18) Creatinine 0.5 MG/DL (0.55-1.30) 0.5 MG/DL (0.55-1.30) 0.5 MG/DL (0.55-1.30) Estimat Glomerular Filtration Rate > 60 mL/min (>60) > 60 mL/min (>60) > 60 mL/min (>60) Glucose Level 247 MG/DL (74-106) 250 MG/DL (74-106) 230 MG/DL (74-106) Calcium Level 8.5 MG/DL (8.5-10.1) 8.8 MG/DL (8.5-10.1) 8.7 MG/DL (8.5-10.1) Phosphorus Level 2.5 MG/DL (2.5-4.9) 8.0 MG/DL (2.5-4.9) 2.3 MG/DL (2.5-4.9) Magnesium Level 1.5 MG/DL (1.8-2.4) 1.5 MG/DL (1.8-2.4) 1.9 MG/DL (1.8-2.4) Total Bilirubin 0.4 MG/DL (0.2-1.0) 0.3 MG/DL (0.2-1.0) 0.2 MG/DL (0.2-1.0) Aspartate Amino Transf (AST/SGOT) 17 U/L (15-37) 13 U/L (15-37) 13 U/L (15-37) Alanine Aminotransferase (ALT/SGPT) 13 U/L (12-78) 15 U/L (12-78) 13 U/L (12-78) Alkaline Phosphatase 78 U/L (46-116) 81 U/L (46-116) 81 U/L (46-116) Pro-B-Type Natriuretic Peptide 1238 pg/mL (0-125) 359 pg/mL (0-125) Total Protein 6.2 G/DL (6.4-8.2) 6.5 G/DL (6.4-8.2) 6.6 G/DL (6.4-8.2) Albumin 1.5 G/DL (3.4-5.0) 1.6 G/DL (3.4-5.0) 1.6 G/DL (3.4-5.0) Globulin 4.7 g/dL 4.9 g/dL 5.0 g/dL Albumin/Globulin Ratio 0.3 (1.0-2.7) 0.3 (1.0-2.7) 0.3 (1.0-2.7) Triglycerides Level 166 MG/DL (30-150) Cholesterol Level 64 MG/DL (< 200) LDL Cholesterol 37 mg/dL (<100) HDL Cholesterol 11 MG/DL (40-60) Cholesterol/HDL Ratio 5.8 (3.3-4.4) Amylase Level 154 U/L (25-115) 79 U/L (25-115) Lipase 1469 U/L (73-393) 866 U/L (73-393) Uric Acid 3.5 MG/DL (2.6-7.2) C-Reactive Protein, Quantitative 4.1 mg/dL (0.00-0.90) Height (Feet): 5 Height (Inches): 7.00 Weight (Pounds): 169 Objective Physical Exam HEENT: normocephalic, bilateral eye PERRL Neck: normal inspection, supple, tracheotomy - site c/d/i ++ vent Respiratory: chest non-tender, lungs clear, Cardiovascular : normal peripheral pulses, regular rate, rhythm Gastrointestinal: normal inspection, non tender, soft, no mass, no guarding, no rebound, ++ feeding tube c/d/i Genitourinary: normal inspection, no CVA tenderness Musculoskeletal: back normal, gait/station normal, normal range of motion, non- tender, no calf tenderness Neurologic: nonverbal Skin: normal color, no darrell GI: ++ Manolo Cervantes MD Jun 29, 2019 12:09
--- NOTE | 2019-06-29 12:31 | Surgery Progress Note ---
Surgery Progress Note Subjective Additional Comments deanna cute events labs improved no n/v/f/c Objective Last 24 Hour Vital Signs Date Time Temp Pulse Resp B/P (MAP) Pulse Ox O2 Delivery O2 Flow Rate FiO2 06/29/19 11:16 54 20 30 06/29/19 10:20 100.0 06/29/19 09:32 92/56 06/29/19 09:09 65 25 30 06/29/19 08:00 100.9 66 16 92/56 (68) 99 06/29/19 08:00 Mechanical Ventilator 06/29/19 08:00 73 06/29/19 08:00 30 06/29/19 07:28 59 16 30 06/29/19 04:55 65 23 30 06/29/19 04:00 Mechanical Ventilator 06/29/19 04:00 30 06/29/19 04:00 98.2 60 20 108/63 (78) 100 06/29/19 03:38 60 06/29/19 02:47 67 23 30 06/29/19 00:32 62 22 30 06/29/19 00:00 99.5 66 22 123/75 (91) 99 06/29/19 00:00 Mechanical Ventilator 06/28/19 23:43 68 06/28/19 23:00 64 25 30 06/28/19 21:05 69 24 30 06/28/19 20:21 119/74 06/28/19 20:00 98.2 61 24 119/74 (89) 100 06/28/19 20:00 30 06/28/19 20:00 Mechanical Ventilator 06/28/19 19:34 67 06/28/19 19:25 65 28 30 06/28/19 17:05 59 29 30 06/28/19 16:00 97.9 69 25 109/75 (86) 98 06/28/19 16:00 Mechanical Ventilator 06/28/19 16:00 30 06/28/19 15:32 63 06/28/19 15:15 58 19 30 06/28/19 13:18 65 28 30 I&O Intake and Output 06/28/19 06/29/19 18:59 06:59 Intake Total 1235 ml 800 ml Output Total 350 ml 1100 ml Balance 885 ml -300 ml Intake Free Water 150 ml 150 ml IV Total 605 ml 170 ml Tube Feeding 480 ml 480 ml Output Urine Total 250 ml 1100 ml Stool Total 100 ml 0 ml Dressing: other Wound: other Drains: other Cardiovascular: RSR Respiratory: decreased breath sounds Abdomen: soft, present bowel sounds Extremities: no cyanosis, other Laboratory Tests Test 06/29/19 03:06 White Blood Count 10.4 K/UL (4.8-10.8) Red Blood Count 3.28 M/UL (4.70-6.10) L Hemoglobin 9.2 G/DL (14.2-18.0) L Hematocrit 27.3 % (42.0-52.0) L Mean Corpuscular Volume 83 FL (80-99) Mean Corpuscular Hemoglobin 28.0 PG (27.0-31.0) Mean Corpuscular Hemoglobin Concent 33.7 G/DL (32.0-36.0) Red Cell Distribution Width 14.1 % (11.6-14.8) Platelet Count 522 K/UL (150-450) H Mean Platelet Volume 5.8 FL (6.5-10.1) L Neutrophils (%) (Auto) 75.5 % (45.0-75.0) H Lymphocytes (%) (Auto) 16.1 % (20.0-45.0) L Monocytes (%) (Auto) 5.5 % (1.0-10.0) Eosinophils (%) (Auto) 2.5 % (0.0-3.0) Basophils (%) (Auto) 0.4 % (0.0-2.0) Sodium Level 141 MMOL/L (136-145) Potassium Level 3.3 MMOL/L (3.5-5.1) L Chloride Level 107 MMOL/L (98-107) Carbon Dioxide Level 25 MMOL/L (21-32) Anion Gap 9 mmol/L (5-15) Blood Urea Nitrogen 6 mg/dL (7-18) L Creatinine 0.5 MG/DL (0.55-1.30) L Estimat Glomerular Filtration Rate > 60 mL/min (>60) Glucose Level 230 MG/DL (74-106) H Uric Acid 3.5 MG/DL (2.6-7.2) Calcium Level 8.7 MG/DL (8.5-10.1) Phosphorus Level 2.3 MG/DL (2.5-4.9) L Magnesium Level 1.9 MG/DL (1.8-2.4) Total Bilirubin 0.2 MG/DL (0.2-1.0) Aspartate Amino Transf (AST/SGOT) 13 U/L (15-37) L Alanine Aminotransferase (ALT/SGPT) 13 U/L (12-78) Alkaline Phosphatase 81 U/L (46-116) C-Reactive Protein, Quantitative 4.1 mg/dL (0.00-0.90) H Pro-B-Type Natriuretic Peptide 359 pg/mL (0-125) H Total Protein 6.6 G/DL (6.4-8.2) Albumin 1.6 G/DL (3.4-5.0) L Globulin 5.0 g/dL Albumin/Globulin Ratio 0.3 (1.0-2.7) L Amylase Level 79 U/L (25-115) Lipase 866 U/L (73-393) H Plan Problems: (1) Decubitus skin ulcer Assessment & Plan: Pt presented on admission with multiple pressure injuries and Moisture Associated Skin damage Buttocks and Bilateral groin. Both earlobes including medial canals noted to have scaly red plaques and and small lesions. Full thickness stage 3 pressure injury posterior neck under collar of trach. Base of wound has 25% slough,75% beefy red .Small amt serosanguineous exudate noted. Borders are macerated. Surrounding skin is clean and dry. Moisture Associated Skin Damage noted to bilateral groin areas,Buttocks and bilateral ischium. Skin is grossly erythematous and denuded with scattered satellite lesions. Full thickness stage 3 sacral pressure injury. Base of wound is 25% necrotic ,30 % slough ,otherwise beefy red with small amt serous exudate.Borders are macerated.(L)(L)8.5cm x (W)10cm. Periwound MASD. Full Thickness stage 3 pressure injury R trochanter. Base of wound 80% beefy red ,20% slough. Small amt serous exudate. Borders are macerated(L)3cm x (W) 3.2cm. No odor noted.Periwound MASD. Full Thickness stage 3 pressure injury R ischium. Base of wound is 25% necrotic , beefy red with scattered slough. Borders are macerated. Small amt serous exudate noted. No odor noted.(L)5.3cm x (W)3.9cm. Periwound MASD. Full thickness stage 3 pressure injury L Ischium. Base of wound is beefy red and moist. Borders are macerated. Small amt serous exudate noted.(L)4cm x (W) 3.2cm x (D)0.2cm. Both heels are pink and easily blanchable. Bilat foot drop noted. Tx.Plan: Cleanse wounds on Buttocks, sacrum, ishium, trochanter with Saline. Apply Therahoney to wounds. Apply Triad Paste periwound to cover erythematous skin. Cover with Optifoam drsgs Daily and prn. Apply Phytoplex Lotion to R and L ears daily and prn. Apply Cavilon Skin Barrier to Both heels. Cover each heel with Optifoam drsg. Change every 7 days and prn. APM/MAICOL Mattress overlay. Reposition at least every 2hours or as tolerated. Off-load heels with pillow. Place pillow between knees. (2) Feeding by G-tube Assessment & Plan: DAILY ESTIMATED NEEDS: Needs based on Critical care, wounds 73kg 22-30 kcals/kg 5254-2955 total kcals 1.25-2 g protein/kg 91-146 g total protein 25-30 mL/kg 2982-0003 total fluid mLs NUTRITION DIAGNOSIS: 1) Increased kcal/pro needs R/T wound healing as evidenced by pt admitted w/ multiple wounds, sacral, BL buttocks full thickness. 2) Swallowing difficulty R/T respiratory status as evidenced by pt trach/PEG dep for all nutritional needs. CURRENT TF: Glucerna 1.2 @40/hr ENTERAL NUTRITION RECOMMENDATIONS: Glucerna 1.5 @ 50ml/hr x 24 hrs + Prosource x1 to provide 1200ml, 1800kcal, 99g + 11g prot, 911ml free water - Rec TF change to Glucerna 1.5 to better meet est kcal and protein needs - Start @ 20ml/hr x 6 hrs, increase by 10ml every 4-6 hrs to goal rate as tolerated - HOB 30-45 degrees/ water flush per MD ADDITIONAL RECOMMENDATIONS: 1. Maintain calibrated bed scale for accurate CBW 2. Wound healing: Add Christian 1pkt BID F/up w/ WC RN osmani 3. Monitor lytes daily, replete as needed Elevated Na (150), rec increase water flushes 4. F/up w/ H&P (3) Status post tracheostomy Assessment & Plan: need to monitor trach collar closely as worsening wound keep protected as above will monitor Steve Franks Jun 29, 2019 12:30
--- NOTE | 2019-06-29 19:00 | NUR ---
HAND-OFF: Report given to Priyank Coello RN.
--- NOTE | 2019-06-29 19:01 | NUR ---
NURSE NOTES: Received patient from Daisha Christianson RN. Patient is obtunded, vss and with no acute distress. Patient is cooperative, clean and on a hall monitor. Skin issues noted, right subclavian triple lumen PICC patent with no signs of infection and patient is awake. Trach to vent Portex 8 AC 12, TV 500, Fios30%, and a PEEP of 5. G-tube feeding running Glucerna 1.2 at goal. Rectal tube in place and byrnes draining with no sighs of retention. Bed at its lowest position, call light in reach and x3 bed rails are up. Will continue to monitor.
[2019-06-29] MEDS: Dyna-Hex 2% Top Sol 2oz TOPIC SCH (20:29)
[2019-06-29] MEDS: Iron Sucrose 100 MG in NS 55 ML IV SCH (20:31)
--- NOTE | 2019-06-29 22:00 | NUR ---
NURSE NOTES: Patient has no signs of distress. Patient is in bed with TV on.
--- NOTE | 2019-06-29 22:01 | Progress Note ---
DATE: 06/29/2019 SUBJECTIVE: The patient is awake, more alert, afebrile, hemodynamically stable. PHYSICAL EXAMINATION: VITAL SIGNS: Blood pressure 121/77, his pulse is 69, respirations of 21, temperature is 99.7. HEENT: Eyes were normal. ENT, mucous membranes were moist and intact. NECK: Supple with no JVD without lymph nodes. Tracheostomy site is clean. LUNGS: Clear without rhonchi, rales, or wheezing. HEART: Normal sounds with regular heart beats. ABDOMEN: Soft, nontender with normal bowel sounds. EXTREMITIES: Warm without cyanosis, clubbing, or edema. LABORATORY AND DIAGNOSTIC DATA: His hemoglobin is 9.2, hematocrit 27.2 with MCV of 83, WBC of 10.4, and platelets is 522. His BUN and creatinine is 6 and 0.5 respectively. His sodium is 141, potassium 3.3, chloride 107, CO2 is 25. ProBNP is now declined to 359. His CRP declined to 4.2. His lipase declined to 866. IMPRESSION: The patient has daily elevated lipase while the CT scan does not show any abnormality corresponding to pancreatitis. PLAN: MRI of the abdomen will be requested. Repeat laboratory tests will be done in the morning. Liset Wallace M.D. DR: FRAN JOB#: [id number] CC:
[2019-06-30] MEDS: NovoLOG Insulin Flexpen SUBQ SCH ×5 (00:08→23:34)
--- NOTE | 2019-06-30 01:00 | NUR ---
NURSE NOTES: Patient tolerated oral care well with scant secretions produced. Patient is in bed with the TV off.
--- NOTE | 2019-06-30 03:30 | NUR ---
NURSE NOTES: Patient has been cleaned and bandages changed. Rectal tube is leaking despite flushing.
[2019-06-30 04:00] VITALS: BP 116/78
[2019-06-30 05:22] LABS: BASOPHILS % (AUTO) 0.5 % (0.0-2.0); EOSINOPHILS % (AUTO) 2.3 % (0.0-3.0); HEMATOCRIT 29.1 % (42.0-52.0); HEMOGLOBIN 9.7 G/DL (14.2-18.0); LYMPHOCYTES % (AUTO) 19.3 % (20.0-45.0); MEAN CORPUSCULAR VOLUME 84 FL (80-99); MONOCYTES % (AUTO) 6.6 % (1.0-10.0); NEUTROPHILS % (AUTO) 71.3 % (45.0-75.0); PLATELET COUNT 529 K/UL (150-450); RED BLOOD COUNT 3.48 M/UL (4.70-6.10); RED CELL DISTRIBUTION WIDTH 14.8 % (11.6-14.8); WHITE BLOOD COUNT 9.6 K/UL (4.8-10.8)
--- NOTE | 2019-06-30 05:26 | NUR ---
NURSE NOTES: Patient is in bed sleeping with no signs of distress.
[2019-06-30] MEDS: Meropenem 1 GM in NS 55 ML IVPB SCH ×3 (05:40→21:21)
[2019-06-30 05:46] LABS: ALANINE AMINOTRANSFERASE 13 U/L (12-78); ALBUMIN 1.8 G/DL (3.4-5.0); ALBUMIN/GLOBULIN RATIO 0.3 (1.0-2.7); ALKALINE PHOSPHATASE 81 U/L (46-116); ANION GAP 12 mmol/L (5-15); ASPARTATE AMINO TRANSFERASE 12 U/L (15-37); BILIRUBIN,TOTAL 0.3 MG/DL (0.2-1.0); BLOOD UREA NITROGEN 6 mg/dL (7-18); CALCIUM 9.1 MG/DL (8.5-10.1); CARBON DIOXIDE 24 MMOL/L (21-32); CHLORIDE 105 MMOL/L (98-107); CREATININE 0.5 MG/DL (0.55-1.30); POTASSIUM 3.5 MMOL/L (3.5-5.1); SODIUM 141 MMOL/L (136-145)
--- NOTE | 2019-06-30 07:05 | NUR ---
HAND-OFF: Report given to MANUEL Mcdaniel.
--- NOTE | 2019-06-30 07:32 | NUR ---
NURSE NOTES: Received report from MANUEL Coello. Patient is resting in bed, in stable condition. No s/sx of SOB, breathing is even and unlabored, vent settings are as ordered. Bed is in lowest position, brakes engaged. Observed no presence of pain or discomfort at this time. Call light is kept within easy reach. Will continue to monitor patient.
[2019-06-30 08:00] VITALS: BP 125/79
[2019-06-30] MEDS: Pantoprazole Inj IVP SCH ×2 (08:13→20:46)
[2019-06-30] MEDS: Spironolactone 25mg tab GT SCH ×2 (08:13→17:37)
[2019-06-30] MEDS: Enalapril 2.5mg tab ORAL SCH ×2 (08:13→20:46)
--- NOTE | 2019-06-30 08:54 | General Progress Note ---
Assessment/Plan Assessment/Plan: GI: Plan Problems: (1) Iron deficiency anemia (2) Severe anemia (3) Feeding by G-tube (4) Ventilator dependent (5) Chronic vegetative state Plan AP CT evaluate for pancreatitis>>>reviewed. Monitor H&H, as needed transfusions PPI repeat lipase levels for tomorrow, We will follow with additional recommendations bowel regimen given stable H&H for the last 3 days and neg repeat stool ob will hold GI procedures for now Thank you for this patient referral, we will follow. Subjective ROS Limited/Unobtainable: No Allergies: Coded Allergies: NO KNOWN DRUG ALLERGIES (Unverified Allergy, Unknown, 06/28/15) Objective Last 24 Hour Vital Signs Date Time Temp Pulse Resp B/P (MAP) Pulse Ox O2 Delivery O2 Flow Rate FiO2 06/30/19 08:13 125/79 06/30/19 08:00 98.4 68 21 125/79 (94) 95 06/30/19 07:14 64 25 30 06/30/19 04:56 62 19 30 06/30/19 04:00 Mechanical Ventilator 06/30/19 04:00 30 06/30/19 04:00 97.6 60 21 116/78 (91) 99 06/30/19 03:38 61 06/30/19 02:32 59 16 30 06/30/19 00:39 61 19 30 06/30/19 00:00 Mechanical Ventilator 06/29/19 23:53 30 06/29/19 23:52 98.1 56 21 127/84 (98) 98 06/29/19 23:32 57 06/29/19 22:53 59 18 30 06/29/19 20:40 61 21 30 06/29/19 20:30 124/78 06/29/19 20:00 30 06/29/19 20:00 Mechanical Ventilator 06/29/19 20:00 97.7 58 21 124/78 (93) 100 06/29/19 19:38 61 06/29/19 18:58 59 19 30 06/29/19 17:00 58 22 30 06/29/19 16:00 Mechanical Ventilator 06/29/19 16:00 57 06/29/19 16:00 99.7 59 21 121/77 (92) 99 06/29/19 16:00 30 06/29/19 14:46 53 19 30 06/29/19 13:05 58 25 30 06/29/19 12:00 Mechanical Ventilator 06/29/19 12:00 98.6 65 26 122/94 (103) 100 06/29/19 12:00 30 06/29/19 11:49 68 06/29/19 11:16 54 20 30 06/29/19 10:20 100.0 06/29/19 09:32 92/56 06/29/19 09:09 65 25 30 Intake and Output 06/29/19 06/30/19 19:00 07:00 Intake Total 800 ml 821.6667 ml Output Total 150 ml Balance 650 ml 821.6667 ml Intake Free Water 200 ml 150 ml IV Total 151.6667 ml Tube Feeding 480 ml 520 ml Other 120 ml Output Urine Total 100 ml Stool Total 50 ml Laboratory Tests 06/30/19 03:15: White Blood Count 9.6, Red Blood Count 3.48L, Hemoglobin 9.7L, Hematocrit 29.1L , Mean Corpuscular Volume 84, Mean Corpuscular Hemoglobin 27.8, Mean Corpuscular Hemoglobin Concent 33.2, Red Cell Distribution Width 14.8, Platelet Count 529H, Mean Platelet Volume 5.8L, Neutrophils (%) (Auto) 71.3, Lymphocytes (%) (Auto) 19.3L, Monocytes (%) (Auto) 6.6, Eosinophils (%) (Auto) 2.3, Basophils (%) (Auto) 0.5, Sodium Level 141, Potassium Level 3.5, Chloride Level 105, Carbon Dioxide Level 24, Anion Gap 12, Blood Urea Nitrogen 6L, Creatinine 0.5L, Estimat Glomerular Filtration Rate > 60, Glucose Level 225H, Calcium Level 9.1, Magnesium Level 1.6L, Total Bilirubin 0.3, Aspartate Amino Transf ( AST/SGOT) 12L, Alanine Aminotransferase (ALT/SGPT) 13, Alkaline Phosphatase 81, Total Protein 7.2, Albumin 1.8L, Globulin 5.4, Albumin/Globulin Ratio 0.3L, Lipase 647H Height (Feet): 5 Height (Inches): 7.00 Weight (Pounds): 172 General Appearance: lethargic EENT: normal ENT inspection Neck: normal alignment Cardiovascular: normal rate Respiratory/Chest: decreased breath sounds Abdomen: normal bowel sounds, non tender, soft Extremities: non-tender Yogi Mendoza MD Jun 30, 2019 08:54
--- NOTE | 2019-06-30 10:00 | NUR ---
NURSE NOTES: Followed up with MRI department regarding MRI of abdomen procedure, pt is on ventilator. Per Zackery of MRI, currently do not have MRI safe ventilators available. Noted.
--- NOTE | 2019-06-30 10:02 | NUR ---
RD ASSESSMENT & RECOMMENDATIONS SEE CARE ACTIVITY FOR COMPLETE ASSESSMENT DAILY ESTIMATED NEEDS: Needs based on Critical care, wounds 73kg 22-30 kcals/kg 0602-9026 total kcals 1.25-2 g protein/kg 91-146 g total protein 25-30 mL/kg 8250-5217 total fluid mLs NUTRITION DIAGNOSIS: 1) Increased kcal/pro needs R/T wound healing as evidenced by pt admitted w/ multiple wounds including full thickness at posterior neck under collar of trach, sacrum, rt trochanter, and rt ischium. 2) Swallowing difficulty R/T respiratory status as evidenced by pt trach/PEG dep for all nutritional needs. CURRENT TF: Glucerna 1.2 @ 60ml/hr x 24 hrs + Prosource qd ENTERAL NUTRITION RECOMMENDATIONS: Glucerna 1.2 @ 60ml/hr x 24 hrs + Prosource 1pkt QD to provide 1440ml, 1728kcal, 86 +11g prot, 1159ml free water - As medically appropriate, increase goal rate to 60ml/hr x 24 hrs -> advance 10ml q 4-6 hrs as tolerated to goal rate - HOB 30-45 degrees/ H2O flush of 180ml q 4 hrs - Add Prosource 1pkt daily ADDITIONAL RECOMMENDATIONS: 1. Maintain calibrated bed scale for accurate CBW 2. Wound healing: Add Vit C 500mg QD + ZnSO4 220mg QD x 10 days continue Christian 1pkt BID 3. Monitor lytes daily, replete as needed 4. Consider long acting insulin for improved BG control 5. Hold colace: + rectal tube 6. Monitor TF tolerance and ability to increase TF: elev lipase
--- NOTE | 2019-06-30 10:05 | NUR ---
NURSE NOTES: Contacted and informed Dr. Wallace that we are unable to do MRI of abdomen w/o contrast in this facility at this time because there are no MRI safe ventilators available. Dr. Wallace acknowledged and ordered to cancel MRI abdomen without contrast. Ordered discontinued. Will continue to monitor patient.
--- NOTE | 2019-06-30 10:29 | Nephrology Progress Note ---
Assessment/Plan Problem List: (1) Metabolic acidosis Assessment: resolved (2) Acute blood loss anemia (3) Hypokalemia (4) Chronic respiratory failure Assessment Metabolic Acidosis HypoKalemia HyperNatremia Severe Anemia Other Conditions: (1) Nosocomial pneumonia (2) Sepsis (3) Ventilator dependent (4) Chronic vegetative state (5) COPD (chronic obstructive pulmonary disease) (6) Feeding by G-tube (7) Diabetes mellitus, type II (8) Cerebral vascular disease (9) Seizure disorder (10) Chronic complete quadriplegia Plan stop stool softners and laxatives add aldactone K and Phos and Mag supplement as needed mag supplement Off Bicitra GT D5W IV fluid as needed Protonix IV watch H&H Transfusion as needed per orders Subjective ROS Limited/Unobtainable: Yes Objective Objective Last 24 Hour Vital Signs Date Time Temp Pulse Resp B/P (MAP) Pulse Ox O2 Delivery O2 Flow Rate FiO2 06/30/19 09:00 70 24 30 06/30/19 08:13 125/79 06/30/19 08:00 30 06/30/19 08:00 98.4 68 21 125/79 (94) 95 06/30/19 08:00 Mechanical Ventilator 06/30/19 08:00 70 06/30/19 07:14 64 25 30 06/30/19 04:56 62 19 30 06/30/19 04:00 Mechanical Ventilator 06/30/19 04:00 30 06/30/19 04:00 97.6 60 21 116/78 (91) 99 06/30/19 03:38 61 06/30/19 02:32 59 16 30 06/30/19 00:39 61 19 30 06/30/19 00:00 Mechanical Ventilator 06/29/19 23:53 30 06/29/19 23:52 98.1 56 21 127/84 (98) 98 06/29/19 23:32 57 06/29/19 22:53 59 18 30 06/29/19 20:40 61 21 30 06/29/19 20:30 124/78 06/29/19 20:00 30 06/29/19 20:00 Mechanical Ventilator 06/29/19 20:00 97.7 58 21 124/78 (93) 100 06/29/19 19:38 61 06/29/19 18:58 59 19 30 06/29/19 17:00 58 22 30 06/29/19 16:00 Mechanical Ventilator 06/29/19 16:00 57 06/29/19 16:00 99.7 59 21 121/77 (92) 99 06/29/19 16:00 30 06/29/19 14:46 53 19 30 06/29/19 13:05 58 25 30 06/29/19 12:00 Mechanical Ventilator 06/29/19 12:00 98.6 65 26 122/94 (103) 100 06/29/19 12:00 30 06/29/19 11:49 68 06/29/19 11:16 54 20 30 Intake and Output 06/29/19 06/30/19 19:00 07:00 Intake Total 800 ml 821.6667 ml Output Total 150 ml Balance 650 ml 821.6667 ml Intake Free Water 200 ml 150 ml IV Total 151.6667 ml Tube Feeding 480 ml 520 ml Other 120 ml Output Urine Total 100 ml Stool Total 50 ml Laboratory Tests 06/30/19 03:15: White Blood Count 9.6, Red Blood Count 3.48L, Hemoglobin 9.7L, Hematocrit 29.1L , Mean Corpuscular Volume 84, Mean Corpuscular Hemoglobin 27.8, Mean Corpuscular Hemoglobin Concent 33.2, Red Cell Distribution Width 14.8, Platelet Count 529H, Mean Platelet Volume 5.8L, Neutrophils (%) (Auto) 71.3, Lymphocytes (%) (Auto) 19.3L, Monocytes (%) (Auto) 6.6, Eosinophils (%) (Auto) 2.3, Basophils (%) (Auto) 0.5, Sodium Level 141, Potassium Level 3.5, Chloride Level 105, Carbon Dioxide Level 24, Anion Gap 12, Blood Urea Nitrogen 6L, Creatinine 0.5L, Estimat Glomerular Filtration Rate > 60, Glucose Level 225H, Calcium Level 9.1, Magnesium Level 1.6L, Total Bilirubin 0.3, Aspartate Amino Transf ( AST/SGOT) 12L, Alanine Aminotransferase (ALT/SGPT) 13, Alkaline Phosphatase 81, Total Protein 7.2, Albumin 1.8L, Globulin 5.4, Albumin/Globulin Ratio 0.3L, Lipase 647H Height (Feet): 5 Height (Inches): 7.00 Weight (Pounds): 172 General Appearance: no apparent distress EENT: other - vented Cardiovascular: normal rate Respiratory/Chest: decreased breath sounds Abdomen: distended Ricky Green MD Jun 30, 2019 10:29
--- NOTE | 2019-06-30 10:40 | Hematology/Onc Progress Note ---
Assessment/Plan Assessment/Plan ASSESSMENT AND RECOMMENDATIONS: # Anemia due to chronic disease v gi bleed, hgb downtrending since admission --> last time I saw this patient, hgb was 13.1, this was back in 2018 --> hgb trend 9-->8.1-->6.9-->12-->7.2-->7.9-->9.2-->9.7 --> prbc for 06/24, 06/25, 06/27 --> iv iron x 5 days given, low sat and ferritin relative to inflammatory process - through 06/29 --> stool ob negative # Coagulopathy is likely due to dic --> vit k as as need, ffp as well --> if worsening coagulopathy and bleeding given ffp --> at this time treatment of underlying process # Leukocytosis is likely related to underyling Pna --> has been started on abx --> now IMPROVEd --> abcx: saulo # PNA with infiltrates --> with sepsis poa, is on broad spectrum abx --> on pressors in icu on adm--> now sdu # Chronic cholecystitis s/p cholecystostomy tube in the past --> surg aware, recs noted # Chronic resp failure vent/trach dependant # Asthma/COPD # HTN # Dm2 # Dementia # CVA s/p vegetative state # Dysphagia s/p G-tube --> replace as per gi # Seizure disorder # SNF resident GREATLY APPRECIATE CONSULTATION. Subjective Constitutional: Denies: no symptoms, chills, fever, malaise, weakness, other HEENT: Denies: no symptoms, eye pain, blurred vision, tearing, double vision, ear pain, ear discharge, nose pain, nose congestion, throat pain, throat swelling, mouth pain, mouth swelling, other Cardiovascular: Denies: no symptoms, chest pain, edema, irregular heart rate, lightheadedness, palpitations, syncope, other Gastrointestinal/Abdominal: Denies: no symptoms, abdomen distended, abdominal pain, black stools, tarry stools, blood in stool, constipated, diarrhea, difficulty swallowing, nausea, poor appetite, poor fluid intake, rectal bleeding , vomiting, other Genitourinary: Denies: no symptoms, burning, discharge, frequency, flank pain, hematuria, incontinence, pain, urgency, other Neurologic/Psychiatric: Denies: no symptoms, anxiety, depressed, emotional problems, headache, numbness, paresthesia, pre-existing deficit, seizure, tingling, tremors, weakness, other Endocrine: Denies: no symptoms, excessive sweating, flushing, intolerance to cold, intolerance to heat, increased hunger, increased thirst, increased urine, unexplained weight gain, unexplained weight loss, other Allergies: Coded Allergies: NO KNOWN DRUG ALLERGIES (Unverified Allergy, Unknown, 06/28/15) Subjective 06/25: no major changes, labs noted, hgb lower, dw RN Yesy, needs blood, also gi consulted, in icu 06/26: on vent/trach, as needed prbc when labs come back 06/27: transferred to sdu, obtunded, hgb 7.9, blood ordered 06/29: in sdu, vent, no acute distress, last bag of iv iron today, hgb 9.2 06/30: no major changes, comfortable, labs note hoding off mri abd Objective Objective Current Medications Medications (Trade) Dose Ordered Sig/Tony Route PRN Reason Start Time Stop Time Status Last Admin Dose Admin Acetaminophen (Tylenol) 650 mg Q4H PRN GT Mild Pain/Temp > 100.5 06/26/19 05:45 07/22/19 05:44 06/29/19 09:50 Chlorhexidine Gluconate (Kay-Hex 2%) 1 applic DAILY@1999 TOPIC 06/26/19 20:00 07/22/19 19:59 06/29/19 20:29 Dextrose (Dextrose 50%) 25 ml Q30M PRN IV Hypoglycemia 06/26/19 05:30 07/21/19 21:59 Dextrose (Dextrose 50%) 50 ml Q30M PRN IV Hypoglycemia 06/26/19 05:30 07/21/19 21:59 Enalapril Maleate (Vasotec) 2.5 mg EVERY 12 HOURS ORAL 06/26/19 21:00 07/26/19 20:59 06/30/19 08:13 Insulin Aspart (NovoLOG) Q6HR SUBQ 06/26/19 06:00 07/22/19 00:00 06/30/19 05:41 Levetiracetam (Keppra) 500 mg Q12HR GT 06/26/19 09:00 07/22/19 08:59 06/30/19 08:13 Magnesium Sulfate 100 ml @ 100 mls/hr Q1H IVPB 06/30/19 08:15 06/30/19 12:14 06/30/19 10:35 Meropenem 1 gm/ Sodium Chloride 55 ml @ 110 mls/hr Q8HR IVPB 06/26/19 14:00 07/01/19 13:59 06/30/19 05:40 Pantoprazole (Protonix) 40 mg Q12HR IVP 06/26/19 09:00 07/22/19 06:29 06/30/19 08:13 Polyethylene Glycol (Miralax) 17 gm PRN PRN GT Constipation 06/26/19 05:45 07/21/19 05:44 Potassium Chloride (K-Dur) 40 meq DAILY ORAL 06/29/19 09:00 07/28/19 14:14 06/30/19 08:12 Spironolactone (Aldactone) 25 mg BID GT 06/28/19 09:00 07/27/19 08:59 06/30/19 08:13 Last 24 Hour Vital Signs Date Time Temp Pulse Resp B/P (MAP) Pulse Ox O2 Delivery O2 Flow Rate FiO2 06/30/19 09:00 70 24 30 06/30/19 08:13 125/79 06/30/19 08:00 30 06/30/19 08:00 98.4 68 21 125/79 (94) 95 06/30/19 08:00 Mechanical Ventilator 06/30/19 08:00 70 06/30/19 07:14 64 25 30 06/30/19 04:56 62 19 30 06/30/19 04:00 Mechanical Ventilator 06/30/19 04:00 30 06/30/19 04:00 97.6 60 21 116/78 (91) 99 06/30/19 03:38 61 06/30/19 02:32 59 16 30 06/30/19 00:39 61 19 30 06/30/19 00:00 Mechanical Ventilator 06/29/19 23:53 30 06/29/19 23:52 98.1 56 21 127/84 (98) 98 06/29/19 23:32 57 06/29/19 22:53 59 18 30 06/29/19 20:40 61 21 30 06/29/19 20:30 124/78 06/29/19 20:00 30 06/29/19 20:00 Mechanical Ventilator 06/29/19 20:00 97.7 58 21 124/78 (93) 100 06/29/19 19:38 61 06/29/19 18:58 59 19 30 06/29/19 17:00 58 22 30 06/29/19 16:00 Mechanical Ventilator 06/29/19 16:00 57 06/29/19 16:00 99.7 59 21 121/77 (92) 99 06/29/19 16:00 30 06/29/19 14:46 53 19 30 06/29/19 13:05 58 25 30 06/29/19 12:00 Mechanical Ventilator 06/29/19 12:00 98.6 65 26 122/94 (103) 100 06/29/19 12:00 30 06/29/19 11:49 68 06/29/19 11:16 54 20 30 06/29/19 10:20 100.0 06/29/19 09:32 92/56 06/29/19 09:09 65 25 30 06/29/19 08:00 100.9 66 16 92/56 (68) 99 06/29/19 08:00 Mechanical Ventilator 06/29/19 08:00 73 06/29/19 08:00 30 06/29/19 07:28 59 16 30 06/29/19 04:55 65 23 30 06/29/19 04:00 Mechanical Ventilator 06/29/19 04:00 30 06/29/19 04:00 98.2 60 20 108/63 (78) 100 06/29/19 03:38 60 06/29/19 02:47 67 23 30 06/29/19 00:32 62 22 30 06/29/19 00:00 99.5 66 22 123/75 (91) 99 06/29/19 00:00 Mechanical Ventilator 06/28/19 23:43 68 06/28/19 23:00 64 25 30 06/28/19 21:05 69 24 30 06/28/19 20:21 119/74 06/28/19 20:00 98.2 61 24 119/74 (89) 100 06/28/19 20:00 30 06/28/19 20:00 Mechanical Ventilator 06/28/19 19:34 67 06/28/19 19:25 65 28 30 06/28/19 17:05 59 29 30 06/28/19 16:00 97.9 69 25 109/75 (86) 98 06/28/19 16:00 Mechanical Ventilator 06/28/19 16:00 30 06/28/19 15:32 63 06/28/19 15:15 58 19 30 06/28/19 13:18 65 28 30 06/28/19 12:00 99.9 88 27 112/75 (87) 98 06/28/19 12:00 30 06/28/19 12:00 Mechanical Ventilator 06/28/19 11:45 66 06/28/19 11:26 57 29 30 Intake and Output 06/29/19 06/30/19 19:00 07:00 Intake Total 800 ml 821.6667 ml Output Total 150 ml Balance 650 ml 821.6667 ml Intake Free Water 200 ml 150 ml IV Total 151.6667 ml Tube Feeding 480 ml 520 ml Other 120 ml Output Urine Total 100 ml Stool Total 50 ml Labs Test 06/28/19 03:30 06/29/19 03:06 06/30/19 03:15 White Blood Count 11.3 K/UL (4.8-10.8) 10.4 K/UL (4.8-10.8) 9.6 K/UL (4.8-10.8) Red Blood Count 3.31 M/UL (4.70-6.10) 3.28 M/UL (4.70-6.10) 3.48 M/UL (4.70-6.10) Hemoglobin 9.2 G/DL (14.2-18.0) 9.2 G/DL (14.2-18.0) 9.7 G/DL (14.2-18.0) Hematocrit 27.3 % (42.0-52.0) 27.3 % (42.0-52.0) 29.1 % (42.0-52.0) Mean Corpuscular Volume 83 FL (80-99) 83 FL (80-99) 84 FL (80-99) Mean Corpuscular Hemoglobin 27.9 PG (27.0-31.0) 28.0 PG (27.0-31.0) 27.8 PG (27.0-31.0) Mean Corpuscular Hemoglobin Concent 33.8 G/DL (32.0-36.0) 33.7 G/DL (32.0-36.0) 33.2 G/DL (32.0-36.0) Red Cell Distribution Width 14.3 % (11.6-14.8) 14.1 % (11.6-14.8) 14.8 % (11.6-14.8) Platelet Count 508 K/UL (150-450) 522 K/UL (150-450) 529 K/UL (150-450) Mean Platelet Volume 5.5 FL (6.5-10.1) 5.8 FL (6.5-10.1) 5.8 FL (6.5-10.1) Neutrophils (%) (Auto) 78.7 % (45.0-75.0) 75.5 % (45.0-75.0) 71.3 % (45.0-75.0) Lymphocytes (%) (Auto) 12.6 % (20.0-45.0) 16.1 % (20.0-45.0) 19.3 % (20.0-45.0) Monocytes (%) (Auto) 6.0 % (1.0-10.0) 5.5 % (1.0-10.0) 6.6 % (1.0-10.0) Eosinophils (%) (Auto) 2.4 % (0.0-3.0) 2.5 % (0.0-3.0) 2.3 % (0.0-3.0) Basophils (%) (Auto) 0.3 % (0.0-2.0) 0.4 % (0.0-2.0) 0.5 % (0.0-2.0) Sodium Level 141 MMOL/L (136-145) 141 MMOL/L (136-145) 141 MMOL/L (136-145) Potassium Level 2.7 MMOL/L (3.5-5.1) 3.3 MMOL/L (3.5-5.1) 3.5 MMOL/L (3.5-5.1) Chloride Level 105 MMOL/L (98-107) 107 MMOL/L (98-107) 105 MMOL/L (98-107) Carbon Dioxide Level 24 MMOL/L (21-32) 25 MMOL/L (21-32) 24 MMOL/L (21-32) Anion Gap 13 mmol/L (5-15) 9 mmol/L (5-15) 12 mmol/L (5-15) Blood Urea Nitrogen 6 mg/dL (7-18) 6 mg/dL (7-18) 6 mg/dL (7-18) Creatinine 0.5 MG/DL (0.55-1.30) 0.5 MG/DL (0.55-1.30) 0.5 MG/DL (0.55-1.30) Estimat Glomerular Filtration Rate > 60 mL/min (>60) > 60 mL/min (>60) > 60 mL/min (>60) Glucose Level 250 MG/DL (74-106) 230 MG/DL (74-106) 225 MG/DL (74-106) Calcium Level 8.8 MG/DL (8.5-10.1) 8.7 MG/DL (8.5-10.1) 9.1 MG/DL (8.5-10.1) Phosphorus Level 8.0 MG/DL (2.5-4.9) 2.3 MG/DL (2.5-4.9) Magnesium Level 1.5 MG/DL (1.8-2.4) 1.9 MG/DL (1.8-2.4) 1.6 MG/DL (1.8-2.4) Total Bilirubin 0.3 MG/DL (0.2-1.0) 0.2 MG/DL (0.2-1.0) 0.3 MG/DL (0.2-1.0) Aspartate Amino Transf (AST/SGOT) 13 U/L (15-37) 13 U/L (15-37) 12 U/L (15-37) Alanine Aminotransferase (ALT/SGPT) 15 U/L (12-78) 13 U/L (12-78) 13 U/L (12-78) Alkaline Phosphatase 81 U/L (46-116) 81 U/L (46-116) 81 U/L (46-116) Total Protein 6.5 G/DL (6.4-8.2) 6.6 G/DL (6.4-8.2) 7.2 G/DL (6.4-8.2) Albumin 1.6 G/DL (3.4-5.0) 1.6 G/DL (3.4-5.0) 1.8 G/DL (3.4-5.0) Globulin 4.9 g/dL 5.0 g/dL 5.4 g/dL Albumin/Globulin Ratio 0.3 (1.0-2.7) 0.3 (1.0-2.7) 0.3 (1.0-2.7) Uric Acid 3.5 MG/DL (2.6-7.2) C-Reactive Protein, Quantitative 4.1 mg/dL (0.00-0.90) Pro-B-Type Natriuretic Peptide 359 pg/mL (0-125) Amylase Level 79 U/L (25-115) Lipase 866 U/L (73-393) 647 U/L (73-393) Height (Feet): 5 Height (Inches): 7.00 Weight (Pounds): 172 Objective Physical Exam HEENT: normocephalic, bilateral eye PERRL Neck: normal inspection, supple, tracheotomy - site c/d/i ++ vent Respiratory: chest non-tender, lungs clear, Cardiovascular : normal peripheral pulses, regular rate, rhythm Gastrointestinal: normal inspection, non tender, soft, no mass, no guarding, no rebound, ++ feeding tube c/d/i Genitourinary: normal inspection, no CVA tenderness Musculoskeletal: back normal, gait/station normal, normal range of motion, non- tender, no calf tenderness Neurologic: nonverbal Skin: normal color, no darrell GI: ++ Manolo Cervantes MD Jun 30, 2019 10:40
--- NOTE | 2019-06-30 11:43 | Infectious Diseases Prog Note ---
Assessment/Plan Assessment/Plan Assessment: Severe Sepsis ESBL E.coli UTI c/w bacteremia Multifocal PNA -06/28 Bcx NTED -06/25 CXR: Bilateral interstitial and airspace disease, left greater than right, again demonstrated. Left-sided pleural effusion is again demonstrated -sp cx ESBL E.coli -u/a wbc tnct, nit neg, leuk +3; ucx >100k ESBL E.coli (S Zosyn, Imi, Amikacin) -06/21 Bcx 06/17 ESBL E.coli (S Zosyn, Imi, Amikacin); 06/23 Bcx Neg -06/21 CXR:.New bilateral patchy airspace opacities in the left midlung an as well as the right upper lung concerning for multifocal pneumonia. Similar retrocardiac atelectasis or consolidation. -influenza sc neg Severe anion gap metabolic acidosis - ?etiology- normal lactic acid, normal Cr- BG levels between 119-170s- r/o DKA vs other Fever, recurrent; improving Mild leukocytosis, SP HTN asthma COPD persistent vegetative state CVA Dm2 chronic respiratory failure s/p trach/vent dependent Dysphagia s/p GT [facility] resident Plan: -Continue Meropenem #7 (abx d #12/25) for ESBL UTI and bacteremia and PNA -06/25 SP IV Linezolid #3 -06/24 SP Tamiflu #2, IV amikacin #2, Cefepime #3 -06/23 SP flagyl #3 -06/22 SP Ertapenem x1 -06/21 SP Zosyn x1 -f/u cx -Monitor CBC/CMP, temperatures -f/u Bcx x2 -GT/trach care -aspiration precautions -neprho f/u Thank you for this consultation. Will continue to follow along with you. Subjective Allergies: Coded Allergies: NO KNOWN DRUG ALLERGIES (Unverified Allergy, Unknown, 06/28/15) Subjective afebrile >24hrs no leukocytosis repeat Bcx NTD out of ICU, now on SDU Objective Vital Signs Last 24 Hour Vital Signs Date Time Temp Pulse Resp B/P (MAP) Pulse Ox O2 Delivery O2 Flow Rate FiO2 06/30/19 10:49 73 27 30 06/30/19 09:00 70 24 30 06/30/19 08:13 125/79 2/17/20 08:00 30 06/30/19 08:00 98.4 68 21 125/79 (94) 95 06/30/19 08:00 Mechanical Ventilator 06/30/19 08:00 70 06/30/19 07:14 64 25 30 06/30/19 04:56 62 19 30 06/30/19 04:00 Mechanical Ventilator 06/30/19 04:00 30 06/30/19 04:00 97.6 60 21 116/78 (91) 99 06/30/19 03:38 61 06/30/19 02:32 59 16 30 06/30/19 00:39 61 19 30 06/30/19 00:00 Mechanical Ventilator 06/29/19 23:53 30 06/29/19 23:52 98.1 56 21 127/84 (98) 98 06/29/19 23:32 57 06/29/19 22:53 59 18 30 06/29/19 20:40 61 21 30 06/29/19 20:30 124/78 06/29/19 20:00 30 06/29/19 20:00 Mechanical Ventilator 06/29/19 20:00 97.7 58 21 124/78 (93) 100 06/29/19 19:38 61 06/29/19 18:58 59 19 30 06/29/19 17:00 58 22 30 06/29/19 16:00 Mechanical Ventilator 06/29/19 16:00 57 06/29/19 16:00 99.7 59 21 121/77 (92) 99 06/29/19 16:00 30 06/29/19 14:46 53 19 30 06/29/19 13:05 58 25 30 06/29/19 12:00 Mechanical Ventilator 06/29/19 12:00 98.6 65 26 122/94 (103) 100 06/29/19 12:00 30 06/29/19 11:49 68 Height (Feet): 5 Height (Inches): 7.00 Weight (Pounds): 172 Objective General Appearance: alert, Chronically Ill ENT: dry mucus membranes, other Neck: normal inspection, suppl limited range of motion, tracheotomy Respiratory: normal inspection, no respiratory distress, no wheezing Cardiovascular: regular rate, rhythm, no edema Gastrointestinal: normal bowel sounds, soft, no guarding, no hernia Musculoskeletal: normal range of motion, other - Bilateral upper and lower extremity motor weakness. Skin: no rash Microbiology Date/Time Source Procedure Growth Status 06/28/19 10:10 Blood Blood Culture - Preliminary NO GROWTH AFTER 24 HOURS Resulted 06/28/19 10:10 Blood Blood Culture - Preliminary NO GROWTH AFTER 24 HOURS Resulted Laboratory Tests Test 06/30/19 03:15 White Blood Count 9.6 K/UL (4.8-10.8) Red Blood Count 3.48 M/UL (4.70-6.10) L Hemoglobin 9.7 G/DL (14.2-18.0) L Hematocrit 29.1 % (42.0-52.0) L Mean Corpuscular Volume 84 FL (80-99) Mean Corpuscular Hemoglobin 27.8 PG (27.0-31.0) Mean Corpuscular Hemoglobin Concent 33.2 G/DL (32.0-36.0) Red Cell Distribution Width 14.8 % (11.6-14.8) Platelet Count 529 K/UL (150-450) H Mean Platelet Volume 5.8 FL (6.5-10.1) L Neutrophils (%) (Auto) 71.3 % (45.0-75.0) Lymphocytes (%) (Auto) 19.3 % (20.0-45.0) L Monocytes (%) (Auto) 6.6 % (1.0-10.0) Eosinophils (%) (Auto) 2.3 % (0.0-3.0) Basophils (%) (Auto) 0.5 % (0.0-2.0) Sodium Level 141 MMOL/L (136-145) Potassium Level 3.5 MMOL/L (3.5-5.1) Chloride Level 105 MMOL/L (98-107) Carbon Dioxide Level 24 MMOL/L (21-32) Anion Gap 12 mmol/L (5-15) Blood Urea Nitrogen 6 mg/dL (7-18) L Creatinine 0.5 MG/DL (0.55-1.30) L Estimat Glomerular Filtration Rate > 60 mL/min (>60) Glucose Level 225 MG/DL (74-106) H Calcium Level 9.1 MG/DL (8.5-10.1) Magnesium Level 1.6 MG/DL (1.8-2.4) L Total Bilirubin 0.3 MG/DL (0.2-1.0) Aspartate Amino Transf (AST/SGOT) 12 U/L (15-37) L Alanine Aminotransferase (ALT/SGPT) 13 U/L (12-78) Alkaline Phosphatase 81 U/L (46-116) Total Protein 7.2 G/DL (6.4-8.2) Albumin 1.8 G/DL (3.4-5.0) L Globulin 5.4 g/dL Albumin/Globulin Ratio 0.3 (1.0-2.7) L Lipase 647 U/L (73-393) H Current Medications Medications (Trade) Dose Ordered Sig/Tony Route PRN Reason Start Time Stop Time Status Last Admin Dose Admin Acetaminophen (Tylenol) 650 mg Q4H PRN GT Mild Pain/Temp > 100.5 06/26/19 05:45 07/22/19 05:44 06/29/19 09:50 Chlorhexidine Gluconate (Kay-Hex 2%) 1 applic DAILY@2000 TOPIC 06/26/19 20:00 07/22/19 19:59 06/29/19 20:29 Dextrose (Dextrose 50%) 25 ml Q30M PRN IV Hypoglycemia 06/26/19 05:30 07/21/19 21:59 Dextrose (Dextrose 50%) 50 ml Q30M PRN IV Hypoglycemia 06/26/19 05:30 07/21/19 21:59 Enalapril Maleate (Vasotec) 2.5 mg EVERY 12 HOURS ORAL 06/26/19 21:00 07/26/19 20:59 06/30/19 08:13 Insulin Aspart (NovoLOG) Q6HR SUBQ 06/26/19 06:00 07/22/19 00:00 06/30/19 05:41 Levetiracetam (Keppra) 500 mg Q12HR GT 06/26/19 09:00 07/22/19 08:59 06/30/19 08:13 Magnesium Sulfate 100 ml @ 100 mls/hr Q1H IVPB 06/30/19 08:15 06/30/19 12:14 06/30/19 10:35 Meropenem 1 gm/ Sodium Chloride 55 ml @ 110 mls/hr Q8HR IVPB 06/26/19 14:00 07/01/19 13:59 06/30/19 05:40 Pantoprazole (Protonix) 40 mg Q12HR IVP 06/26/19 09:00 07/22/19 06:29 06/30/19 08:13 Polyethylene Glycol (Miralax) 17 gm PRN PRN GT Constipation 06/26/19 05:45 07/21/19 05:44 Potassium Chloride (K-Dur) 40 meq DAILY ORAL 06/29/19 09:00 07/28/19 14:14 06/30/19 08:12 Spironolactone (Aldactone) 25 mg BID GT 06/28/19 09:00 07/27/19 08:59 06/30/19 08:13 Laura Gimenez M.D. Jun 30, 2019 11:43
[2019-06-30 12:00] VITALS: BP 124/84
--- NOTE | 2019-06-30 13:38 | Surgery Progress Note ---
Surgery Progress Note Subjective Additional Comments no acute events exam stable labs noted doing well overall and improved Objective Last 24 Hour Vital Signs Date Time Temp Pulse Resp B/P (MAP) Pulse Ox O2 Delivery O2 Flow Rate FiO2 06/30/19 13:16 58 21 30 06/30/19 12:00 98.1 68 21 124/84 (97) 100 06/30/19 12:00 58 06/30/19 12:00 30 06/30/19 12:00 Mechanical Ventilator 06/30/19 10:49 73 27 30 06/30/19 09:00 70 24 30 06/30/19 08:13 125/79 06/30/19 08:00 30 06/30/19 08:00 98.4 68 21 125/79 (94) 95 06/30/19 08:00 Mechanical Ventilator 06/30/19 08:00 70 06/30/19 07:14 64 25 30 06/30/19 04:56 62 19 30 06/30/19 04:00 Mechanical Ventilator 06/30/19 04:00 30 06/30/19 04:00 97.6 60 21 116/78 (91) 99 06/30/19 03:38 61 06/30/19 02:32 59 16 30 06/30/19 00:39 61 19 30 06/30/19 00:00 Mechanical Ventilator 06/29/19 23:53 30 06/29/19 23:52 98.1 56 21 127/84 (98) 98 06/29/19 23:32 57 06/29/19 22:53 59 18 30 06/29/19 20:40 61 21 30 06/29/19 20:30 124/78 06/29/19 20:00 30 06/29/19 20:00 Mechanical Ventilator 06/29/19 20:00 97.7 58 21 124/78 (93) 100 06/29/19 19:38 61 06/29/19 18:58 59 19 30 06/29/19 17:00 58 22 30 06/29/19 16:00 Mechanical Ventilator 06/29/19 16:00 57 06/29/19 16:00 99.7 59 21 121/77 (92) 99 06/29/19 16:00 30 06/29/19 14:46 53 19 30 I&O Intake and Output 06/29/19 06/30/19 19:00 07:00 Intake Total 800 ml 821.6667 ml Output Total 150 ml Balance 650 ml 821.6667 ml Intake Free Water 200 ml 150 ml IV Total 151.6667 ml Tube Feeding 480 ml 520 ml Other 120 ml Output Urine Total 100 ml Stool Total 50 ml Dressing: other Wound: other Drains: other Cardiovascular: RSR Respiratory: decreased breath sounds Abdomen: soft, present bowel sounds Extremities: no tenderness, no cyanosis Laboratory Tests Test 06/30/19 03:15 White Blood Count 9.6 K/UL (4.8-10.8) Red Blood Count 3.48 M/UL (4.70-6.10) L Hemoglobin 9.7 G/DL (14.2-18.0) L Hematocrit 29.1 % (42.0-52.0) L Mean Corpuscular Volume 84 FL (80-99) Mean Corpuscular Hemoglobin 27.8 PG (27.0-31.0) Mean Corpuscular Hemoglobin Concent 33.2 G/DL (32.0-36.0) Red Cell Distribution Width 14.8 % (11.6-14.8) Platelet Count 529 K/UL (150-450) H Mean Platelet Volume 5.8 FL (6.5-10.1) L Neutrophils (%) (Auto) 71.3 % (45.0-75.0) Lymphocytes (%) (Auto) 19.3 % (20.0-45.0) L Monocytes (%) (Auto) 6.6 % (1.0-10.0) Eosinophils (%) (Auto) 2.3 % (0.0-3.0) Basophils (%) (Auto) 0.5 % (0.0-2.0) Sodium Level 141 MMOL/L (136-145) Potassium Level 3.5 MMOL/L (3.5-5.1) Chloride Level 105 MMOL/L (98-107) Carbon Dioxide Level 24 MMOL/L (21-32) Anion Gap 12 mmol/L (5-15) Blood Urea Nitrogen 6 mg/dL (7-18) L Creatinine 0.5 MG/DL (0.55-1.30) L Estimat Glomerular Filtration Rate > 60 mL/min (>60) Glucose Level 225 MG/DL (74-106) H Calcium Level 9.1 MG/DL (8.5-10.1) Magnesium Level 1.6 MG/DL (1.8-2.4) L Total Bilirubin 0.3 MG/DL (0.2-1.0) Aspartate Amino Transf (AST/SGOT) 12 U/L (15-37) L Alanine Aminotransferase (ALT/SGPT) 13 U/L (12-78) Alkaline Phosphatase 81 U/L (46-116) Total Protein 7.2 G/DL (6.4-8.2) Albumin 1.8 G/DL (3.4-5.0) L Globulin 5.4 g/dL Albumin/Globulin Ratio 0.3 (1.0-2.7) L Lipase 647 U/L (73-393) H Plan Problems: (1) Decubitus skin ulcer Assessment & Plan: Pt presented on admission with multiple pressure injuries and Moisture Associated Skin damage Buttocks and Bilateral groin. Both earlobes including medial canals noted to have scaly red plaques and and small lesions. Full thickness stage 3 pressure injury posterior neck under collar of trach. Base of wound has 25% slough,75% beefy red .Small amt serosanguineous exudate noted. Borders are macerated. Surrounding skin is clean and dry. Moisture Associated Skin Damage noted to bilateral groin areas,Buttocks and bilateral ischium. Skin is grossly erythematous and denuded with scattered satellite lesions. Full thickness stage 3 sacral pressure injury. Base of wound is 25% necrotic ,30 % slough ,otherwise beefy red with small amt serous exudate.Borders are macerated.(L)(L)8.5cm x (W)10cm. Periwound MASD. Full Thickness stage 3 pressure injury R trochanter. Base of wound 80% beefy red ,20% slough. Small amt serous exudate. Borders are macerated(L)3cm x (W) 3.2cm. No odor noted.Periwound MASD. Full Thickness stage 3 pressure injury R ischium. Base of wound is 25% necrotic , beefy red with scattered slough. Borders are macerated. Small amt serous exudate noted. No odor noted.(L)5.3cm x (W)3.9cm. Periwound MASD. Full thickness stage 3 pressure injury L Ischium. Base of wound is beefy red and moist. Borders are macerated. Small amt serous exudate noted.(L)4cm x (W) 3.2cm x (D)0.2cm. Both heels are pink and easily blanchable. Bilat foot drop noted. Tx.Plan: Cleanse wounds on Buttocks, sacrum, ishium, trochanter with Saline. Apply Therahoney to wounds. Apply Triad Paste periwound to cover erythematous skin. Cover with Optifoam drsgs Daily and prn. Apply Phytoplex Lotion to R and L ears daily and prn. Apply Cavilon Skin Barrier to Both heels. Cover each heel with Optifoam drsg. Change every 7 days and prn. APM/MAICOL Mattress overlay. Reposition at least every 2hours or as tolerated. Off-load heels with pillow. Place pillow between knees. (2) Feeding by G-tube Assessment & Plan: DAILY ESTIMATED NEEDS: Needs based on Critical care, wounds 73kg 22-30 kcals/kg 6827-5788 total kcals 1.25-2 g protein/kg 91-146 g total protein 25-30 mL/kg 6687-1976 total fluid mLs NUTRITION DIAGNOSIS: 1) Increased kcal/pro needs R/T wound healing as evidenced by pt admitted w/ multiple wounds, sacral, BL buttocks full thickness. 2) Swallowing difficulty R/T respiratory status as evidenced by pt trach/PEG dep for all nutritional needs. CURRENT TF: Glucerna 1.2 @40/hr ENTERAL NUTRITION RECOMMENDATIONS: Glucerna 1.5 @ 50ml/hr x 24 hrs + Prosource x1 to provide 1200ml, 1800kcal, 99g + 11g prot, 911ml free water - Rec TF change to Glucerna 1.5 to better meet est kcal and protein needs - Start @ 20ml/hr x 6 hrs, increase by 10ml every 4-6 hrs to goal rate as tolerated - HOB 30-45 degrees/ water flush per MD ADDITIONAL RECOMMENDATIONS: 1. Maintain calibrated bed scale for accurate CBW 2. Wound healing: Add Christian 1pkt BID F/up w/ WC RN eval 3. Monitor lytes daily, replete as needed Elevated Na (150), rec increase water flushes 4. F/up w/ H&P (3) Status post tracheostomy Assessment & Plan: need to monitor trach collar closely as worsening wound keep protected as above will monitor Steve Franks Jun 30, 2019 13:38
--- NOTE | 2019-06-30 14:58 | NUR ---
CASE MANAGEMENT:REVIEW 06/28/2019 SI;SEVERE SEPSIS. ESBL UTI W/BACTEREMIA. 99.9 58 29 130/78 97% TRACH VENT FIO2 30% WBC 11.3 K+ 2.7 BG 250 PHOS 8.0 MAG 1.5 IS;ALDACATONE GT BID IRON SUCROSE IV QHS MEROPENEM IV Q8 HRS PROTONIX IV Q12 HRS VASOTEC GT Q12 HRS TELE STATUS DCP; FROM [facility] CASE MANAGEMENT:REVIEW 06/29/2019 SI;SEVERE SEPSIS. ESBL UTI W/BACTEREMIA. 100.9 59 25 92/56 99% TRACH VENT FIO2 30% K+ 3.3 PHOS 2.3 CRP 4.1 LIPASE 866 IS;K-DUR GT QD ALDACTONE GT BID IRON SUCROSE IV QHS MEROPENEM IV Q8 HRS PROTONIX IV Q12 HRS TELE STATUS DCP;FROM [facility] CASE MANAGEMENT:REVIEW SI;SEVERE SEPSIS. ESBL UTI W/BACTEREMIA. 98.4 58 27 125/79 95% TRACH VENT FIO2 30% MAG 1.6 LIPASE 647 IS;MAG SULFATE IV K-DUR GT QD MEROPENEM IV Q8 HRS PROTONIX IV Q12 HRS TELE STATUS DCP;FROM [facility]
[2019-06-30 16:00] VITALS: BP 110/80
--- NOTE | 2019-06-30 19:00 | NUR ---
% Addendum: 06/30/19 at 1908 by Priyank Coello RN NURSE NOTES: Received patient from MANUEL Mcdaniel. Patient is obtunded, vss, with no acute distress. Patient is cooperative and clean. Isolation precaution noted, skin issues noted, bed padded, and on monitoring tech on. Trach to vent portex 8 AC 12, TV 500, Fio2 30%, and PEEP of 5. G tube running Glucerna 1.2 at 60cc/hr per MD order. Rectal tube draining and leaking. PICC site is right subclavian triple lumen patent running tko. Bed at its lowest position, call light in reach and x3 bed rails are up.
--- NOTE | 2019-06-30 19:14 | NUR ---
HAND-OFF: Report given to MANUEL Coello.
[2019-06-30 20:00] VITALS: BP 122/86
[2019-06-30] MEDS: Dyna-Hex 2% Top Sol 2oz TOPIC SCH (20:00)
--- NOTE | 2019-06-30 21:41 | NUR ---
NURSE NOTES: Patient is tolerating new G-Tube rate well with <5cc residual.
[2019-07-01] VITALS: BP 118/81
--- NOTE | 2019-07-01 03:15 | Progress Note ---
DATE: 06/30/2019 SUBJECTIVE: The patient is febrile, but hemodynamically stable. PHYSICAL EXAMINATION: VITAL SIGNS: Blood pressure 122/86, pulse is 67, respirations 21, temperature is 100.4. HEENT: Eyes were normal. ENT, mucous membranes were moist and intact. NECK: Supple with no JVD without lymph nodes. LUNGS: Clear. HEART: Normal sounds without irregular beats. There is no tachycardia at rest. ABDOMEN: Soft, nontender, with normal bowel sounds. Gastrostomy site is clean. EXTREMITIES: Warm without cyanosis, clubbing, or edema. LABORATORY AND DIAGNOSTIC DATA: Hemoglobin 9.7, hematocrit 29.1 with MCV of 84, WBC of 9.6, and platelets are 529,000. His BUN and creatinine are 6 and 0.5 respectively. Sodium is 141, potassium 3.5, chloride 105, CO2 is 24. IMPRESSION: The patient with low-grade fever without tachycardia. His CBC and BMP are stable. He is scheduled to undergo upper GI endoscopy and colonoscopy in search of the cause of this sudden anemia. The patient was scheduled to have an MRI of the abdomen; however, this could not be accomplished and MRI . Therefore, the patient will undergo upper GI and lower GI endoscopy in this hospital. He was discharged. MRI of the abdomen will be done as an outpatient. Repeat laboratory tests will be done in a.m. Liset Wallace M.D. DR: Sg JOB#: [id number] CC:
[2019-07-01 04:00] VITALS: BP 110/68
[2019-07-01 04:56] LABS: BASOPHILS % (AUTO) 0.5 % (0.0-2.0); EOSINOPHILS % (AUTO) 2.5 % (0.0-3.0); HEMATOCRIT 27.8 % (42.0-52.0); HEMOGLOBIN 9.2 G/DL (14.2-18.0); LYMPHOCYTES % (AUTO) 22.5 % (20.0-45.0); MEAN CORPUSCULAR VOLUME 84 FL (80-99); NEUTROPHILS % (AUTO) 70.5 % (45.0-75.0); PLATELET COUNT 525 K/UL (150-450); RED CELL DISTRIBUTION WIDTH 15.2 % (11.6-14.8); WHITE BLOOD COUNT 9.2 K/UL (4.8-10.8)
[2019-07-01] MEDS: Meropenem 1 GM in NS 55 ML IVPB SCH ×2 (05:19→13:02)
[2019-07-01 05:21] LABS: PHOSPHORUS 2.9 MG/DL (2.5-4.9)
[2019-07-01 05:26] LABS: ALANINE AMINOTRANSFERASE 13 U/L (12-78); ALBUMIN 1.8 G/DL (3.4-5.0); ALBUMIN/GLOBULIN RATIO 0.3 (1.0-2.7); ALKALINE PHOSPHATASE 83 U/L (46-116); AMYLASE 45 U/L (25-115); ANION GAP 8 mmol/L (5-15); ASPARTATE AMINO TRANSFERASE 11 U/L (15-37); BILIRUBIN,TOTAL 0.2 MG/DL (0.2-1.0); BLOOD UREA NITROGEN 12 mg/dL (7-18); CALCIUM 9.1 MG/DL (8.5-10.1); CARBON DIOXIDE 27 MMOL/L (21-32); CHLORIDE 105 MMOL/L (98-107); CREATININE 0.5 MG/DL (0.55-1.30); POTASSIUM 3.8 MMOL/L (3.5-5.1); SODIUM 140 MMOL/L (136-145)
[2019-07-01] MEDS: NovoLOG Insulin Flexpen SUBQ SCH ×2 (05:31→12:00)
--- NOTE | 2019-07-01 06:21 | Hematology/Onc Progress Note ---
Assessment/Plan Assessment/Plan ASSESSMENT AND RECOMMENDATIONS: # Anemia due to chronic disease v gi bleed, hgb downtrending since admission --> last time I saw this patient, hgb was 13.1, this was back in 2018 --> hgb trend 9-->8.1-->6.9-->12-->7.2-->7.9-->9.2-->9.7-->9.2 --> prbc for 06/24, 06/25, 06/27 --> iv iron x 5 days given, low sat and ferritin relative to inflammatory process - through 06/29 --> stool ob negative --> potential egd and colo # Coagulopathy is likely due to dic --> vit k as as need, ffp as well --> if worsening coagulopathy and bleeding given ffp --> at this time treatment of underlying process # Leukocytosis is likely related to underyling Pna --> has been started on abx --> now IMPROVEd --> abcx: saulo # PNA with infiltrates --> with sepsis poa, is on broad spectrum abx --> on pressors in icu on adm--> now sdu # Chronic cholecystitis s/p cholecystostomy tube in the past --> surg aware, recs noted # Chronic resp failure vent/trach dependant # Asthma/COPD # HTN # Dm2 # Dementia # CVA s/p vegetative state # Dysphagia s/p G-tube --> replace as per gi # Seizure disorder # SNF resident GREATLY APPRECIATE CONSULTATION. Subjective Cardiovascular: Denies: no symptoms, chest pain, edema, irregular heart rate, lightheadedness, palpitations, syncope, other Genitourinary: Denies: no symptoms, burning, discharge, frequency, flank pain, hematuria, incontinence, pain, urgency, other Neurologic/Psychiatric: Denies: no symptoms, anxiety, depressed, emotional problems, headache, numbness, paresthesia, pre-existing deficit, seizure, tingling, tremors, weakness, other Endocrine: Denies: no symptoms, excessive sweating, flushing, intolerance to cold, intolerance to heat, increased hunger, increased thirst, increased urine, unexplained weight gain, unexplained weight loss, other Hematologic/Lymphatic: Denies: no symptoms, anemia, easy bleeding, easy bruising, adenopathy, other Allergies: Coded Allergies: NO KNOWN DRUG ALLERGIES (Unverified Allergy, Unknown, 06/28/15) Subjective 06/25: no major changes, labs noted, hgb lower, dw RN Yesy, needs blood, also gi consulted, in icu 06/26: on vent/trach, as needed prbc when labs come back 06/27: transferred to sdu, obtunded, hgb 7.9, blood ordered 06/29: in sdu, vent, no acute distress, last bag of iv iron today, hgb 9.2 06/30: no major changes, comfortable, labs note hoding off mri abd 07/01: to undergo egd and colo potentially shortly, gtube placed, hgb 9.2 Objective Objective Current Medications Medications (Trade) Dose Ordered Sig/Tony Route PRN Reason Start Time Stop Time Status Last Admin Dose Admin Acetaminophen (Tylenol) 650 mg Q4H PRN GT Mild Pain/Temp > 100.5 06/26/19 05:45 07/22/19 05:44 06/29/19 09:50 Chlorhexidine Gluconate (Kay-Hex 2%) 1 applic DAILY@1999 TOPIC 06/26/19 20:00 07/22/19 19:59 06/30/19 20:00 Dextrose (Dextrose 50%) 25 ml Q30M PRN IV Hypoglycemia 06/26/19 05:30 07/21/19 21:59 Dextrose (Dextrose 50%) 50 ml Q30M PRN IV Hypoglycemia 06/26/19 05:30 07/21/19 21:59 Enalapril Maleate (Vasotec) 2.5 mg EVERY 12 HOURS ORAL 06/26/19 21:00 07/26/19 20:59 06/30/19 20:46 Insulin Aspart (NovoLOG) Q6HR SUBQ 06/26/19 06:00 07/22/19 00:00 07/01/19 05:31 Levetiracetam (Keppra) 500 mg Q12HR GT 06/26/19 09:00 07/22/19 08:59 06/30/19 20:46 Meropenem 1 gm/ Sodium Chloride 55 ml @ 110 mls/hr Q8HR IVPB 06/26/19 14:00 07/08/19 13:59 07/01/19 05:19 Pantoprazole (Protonix) 40 mg Q12HR IVP 06/26/19 09:00 07/22/19 06:29 06/30/19 20:46 Polyethylene Glycol (Miralax) 17 gm PRN PRN GT Constipation 06/26/19 05:45 07/21/19 05:44 Potassium Chloride (K-Dur) 40 meq DAILY ORAL 06/29/19 09:00 07/28/19 14:14 06/30/19 08:12 Spironolactone (Aldactone) 25 mg BID GT 06/28/19 09:00 07/27/19 08:59 06/30/19 17:37 Last 24 Hour Vital Signs Date Time Temp Pulse Resp B/P (MAP) Pulse Ox O2 Delivery O2 Flow Rate FiO2 07/01/19 05:44 70 22 30 07/01/19 04:00 58 07/01/19 04:00 99.6 63 21 110/68 (82) 99 07/01/19 04:00 30 07/01/19 04:00 Mechanical Ventilator 07/01/19 03:19 78 17 30 07/01/19 00:51 76 20 30 07/01/19 00:00 99.3 65 20 118/81 (93) 100 07/01/19 00:00 Mechanical Ventilator 07/01/19 00:00 30 06/30/19 23:24 71 18 30 06/30/19 23:03 71 06/30/19 21:04 68 18 30 06/30/19 20:46 122/86 06/30/19 20:00 100.4 67 21 122/86 (98) 100 06/30/19 20:00 30 06/30/19 20:00 Mechanical Ventilator 06/30/19 19:23 74 22 30 06/30/19 19:03 71 06/30/19 16:40 67 20 30 06/30/19 16:00 98.2 55 20 110/80 (90) 100 06/30/19 16:00 30 06/30/19 16:00 Mechanical Ventilator 06/30/19 16:00 58 06/30/19 15:13 56 17 30 06/30/19 13:16 58 21 30 06/30/19 12:00 98.1 68 21 124/84 (97) 100 06/30/19 12:00 58 06/30/19 12:00 30 06/30/19 12:00 Mechanical Ventilator 06/30/19 10:49 73 27 30 06/30/19 09:00 70 24 30 06/30/19 08:13 125/79 06/30/19 08:00 30 06/30/19 08:00 98.4 68 21 125/79 (94) 95 06/30/19 08:00 Mechanical Ventilator 06/30/19 08:00 70 06/30/19 07:14 64 25 30 06/30/19 04:56 62 19 30 06/30/19 04:00 Mechanical Ventilator 06/30/19 04:00 30 06/30/19 04:00 97.6 60 21 116/78 (91) 99 06/30/19 03:38 61 06/30/19 02:32 59 16 30 06/30/19 00:39 61 19 30 06/30/19 00:00 Mechanical Ventilator 06/29/19 23:53 30 06/29/19 23:52 98.1 56 21 127/84 (98) 98 06/29/19 23:32 57 06/29/19 22:53 59 18 30 06/29/19 20:40 61 21 30 06/29/19 20:30 124/78 06/29/19 20:00 30 06/29/19 20:00 Mechanical Ventilator 06/29/19 20:00 97.7 58 21 124/78 (93) 100 06/29/19 19:38 61 06/29/19 18:58 59 19 30 06/29/19 17:00 58 22 30 06/29/19 16:00 Mechanical Ventilator 06/29/19 16:00 57 06/29/19 16:00 99.7 59 21 121/77 (92) 99 06/29/19 16:00 30 06/29/19 14:46 53 19 30 06/29/19 13:05 58 25 30 06/29/19 12:00 Mechanical Ventilator 06/29/19 12:00 98.6 65 26 122/94 (103) 100 06/29/19 12:00 30 06/29/19 11:49 68 06/29/19 11:16 54 20 30 06/29/19 10:20 100.0 06/29/19 09:32 92/56 06/29/19 09:09 65 25 30 2/16/20 08:00 100.9 66 16 92/56 (68) 99 06/29/19 08:00 Mechanical Ventilator 06/29/19 08:00 73 06/29/19 08:00 30 06/29/19 07:28 59 16 30 Intake and Output 06/30/19 07/01/19 19:00 07:00 Intake Total 900 ml 765 ml Output Total 2200 ml 2000 ml Balance -1300 ml -1235 ml Intake Free Water 300 ml 50 ml IV Total 55 ml Tube Feeding 600 ml 660 ml Output Urine Total 2100 ml 2000 ml Stool Total 100 ml # Voids 1 Labs Test 06/29/19 03:06 06/30/19 03:15 07/01/19 03:32 White Blood Count 10.4 K/UL (4.8-10.8) 9.6 K/UL (4.8-10.8) 9.2 K/UL (4.8-10.8) Red Blood Count 3.28 M/UL (4.70-6.10) 3.48 M/UL (4.70-6.10) 3.30 M/UL (4.70-6.10) Hemoglobin 9.2 G/DL (14.2-18.0) 9.7 G/DL (14.2-18.0) 9.2 G/DL (14.2-18.0) Hematocrit 27.3 % (42.0-52.0) 29.1 % (42.0-52.0) 27.8 % (42.0-52.0) Mean Corpuscular Volume 83 FL (80-99) 84 FL (80-99) 84 FL (80-99) Mean Corpuscular Hemoglobin 28.0 PG (27.0-31.0) 27.8 PG (27.0-31.0) 28.0 PG (27.0-31.0) Mean Corpuscular Hemoglobin Concent 33.7 G/DL (32.0-36.0) 33.2 G/DL (32.0-36.0) 33.2 G/DL (32.0-36.0) Red Cell Distribution Width 14.1 % (11.6-14.8) 14.8 % (11.6-14.8) 15.2 % (11.6-14.8) Platelet Count 522 K/UL (150-450) 529 K/UL (150-450) 525 K/UL (150-450) Mean Platelet Volume 5.8 FL (6.5-10.1) 5.8 FL (6.5-10.1) 6.1 FL (6.5-10.1) Neutrophils (%) (Auto) 75.5 % (45.0-75.0) 71.3 % (45.0-75.0) 70.5 % (45.0-75.0) Lymphocytes (%) (Auto) 16.1 % (20.0-45.0) 19.3 % (20.0-45.0) 22.5 % (20.0-45.0) Monocytes (%) (Auto) 5.5 % (1.0-10.0) 6.6 % (1.0-10.0) 4.0 % (1.0-10.0) Eosinophils (%) (Auto) 2.5 % (0.0-3.0) 2.3 % (0.0-3.0) 2.5 % (0.0-3.0) Basophils (%) (Auto) 0.4 % (0.0-2.0) 0.5 % (0.0-2.0) 0.5 % (0.0-2.0) Sodium Level 141 MMOL/L (136-145) 141 MMOL/L (136-145) 140 MMOL/L (136-145) Potassium Level 3.3 MMOL/L (3.5-5.1) 3.5 MMOL/L (3.5-5.1) 3.8 MMOL/L (3.5-5.1) Chloride Level 107 MMOL/L (98-107) 105 MMOL/L (98-107) 105 MMOL/L (98-107) Carbon Dioxide Level 25 MMOL/L (21-32) 24 MMOL/L (21-32) 27 MMOL/L (21-32) Anion Gap 9 mmol/L (5-15) 12 mmol/L (5-15) 8 mmol/L (5-15) Blood Urea Nitrogen 6 mg/dL (7-18) 6 mg/dL (7-18) 12 mg/dL (7-18) Creatinine 0.5 MG/DL (0.55-1.30) 0.5 MG/DL (0.55-1.30) 0.5 MG/DL (0.55-1.30) Estimat Glomerular Filtration Rate > 60 mL/min (>60) > 60 mL/min (>60) > 60 mL/min (>60) Glucose Level 230 MG/DL (74-106) 225 MG/DL (74-106) 236 MG/DL (74-106) Uric Acid 3.5 MG/DL (2.6-7.2) Calcium Level 8.7 MG/DL (8.5-10.1) 9.1 MG/DL (8.5-10.1) 9.1 MG/DL (8.5-10.1) Phosphorus Level 2.3 MG/DL (2.5-4.9) 2.9 MG/DL (2.5-4.9) Magnesium Level 1.9 MG/DL (1.8-2.4) 1.6 MG/DL (1.8-2.4) 1.8 MG/DL (1.8-2.4) Total Bilirubin 0.2 MG/DL (0.2-1.0) 0.3 MG/DL (0.2-1.0) 0.2 MG/DL (0.2-1.0) Aspartate Amino Transf (AST/SGOT) 13 U/L (15-37) 12 U/L (15-37) 11 U/L (15-37) Alanine Aminotransferase (ALT/SGPT) 13 U/L (12-78) 13 U/L (12-78) 13 U/L (12-78) Alkaline Phosphatase 81 U/L (46-116) 81 U/L (46-116) 83 U/L (46-116) C-Reactive Protein, Quantitative 4.1 mg/dL (0.00-0.90) Pro-B-Type Natriuretic Peptide 359 pg/mL (0-125) Total Protein 6.6 G/DL (6.4-8.2) 7.2 G/DL (6.4-8.2) 7.2 G/DL (6.4-8.2) Albumin 1.6 G/DL (3.4-5.0) 1.8 G/DL (3.4-5.0) 1.8 G/DL (3.4-5.0) Globulin 5.0 g/dL 5.4 g/dL 5.4 g/dL Albumin/Globulin Ratio 0.3 (1.0-2.7) 0.3 (1.0-2.7) 0.3 (1.0-2.7) Amylase Level 79 U/L (25-115) 45 U/L (25-115) Lipase 866 U/L (73-393) 647 U/L (73-393) 502 U/L (73-393) Height (Feet): 5 Height (Inches): 7.00 Weight (Pounds): 172 Objective Physical Exam HEENT: normocephalic, bilateral eye PERRL Neck: normal inspection, supple, tracheotomy - site c/d/i ++ vent Respiratory: chest non-tender, lungs clear, Cardiovascular : normal peripheral pulses, regular rate, rhythm Gastrointestinal: normal inspection, non tender, soft, no mass, no guarding, no rebound, ++ feeding tube c/d/i Genitourinary: normal inspection, no CVA tenderness Musculoskeletal: back normal, gait/station normal, normal range of motion, non- tender, no calf tenderness Neurologic: nonverbal Skin: normal color, no darrell GI: ++ Manolo Cervantes MD Jul 01, 2019 06:21
--- NOTE | 2019-07-01 06:57 | NUR ---
HAND-OFF: Report given to Fer Mcdaniel RN.
--- NOTE | 2019-07-01 06:58 | NUR ---
NURSE NOTES: Received report from MANUEL Coello. Patient is resting in bed, in stable condition. No s/sx of SOB, breathing is even and unlabored, vent settings are as ordered. Observed no presence of pain or discomfort at this time. Bed is in lowest position, brakes engaged. Call light is kept within easy reach. Will continue to monitor patient.
[2019-07-01 08:00] VITALS: BP 105/68
[2019-07-01] MEDS: Spironolactone 25mg tab GT SCH (08:06)
[2019-07-01] MEDS: Pantoprazole Inj IVP SCH (08:06)
[2019-07-01] MEDS: Enalapril 2.5mg tab ORAL SCH (08:06)
--- NOTE | 2019-07-01 10:10 | General Progress Note ---
Assessment/Plan Assessment/Plan: GI: Plan Problems: (1) Iron deficiency anemia (2) Severe anemia (3) Feeding by G-tube (4) Ventilator dependent (5) Chronic vegetative state Plan AP CT evaluate for pancreatitis>>>reviewed. Monitor H&H, as needed transfusions PPI repeat lipase levels for tomorrow, We will follow with additional recommendations bowel regimen given stable H&H for the last 3 days and neg repeat stool ob will hold GI procedures for now dc rectal tube Thank you for this patient referral, we will follow. Subjective ROS Limited/Unobtainable: No Allergies: Coded Allergies: NO KNOWN DRUG ALLERGIES (Unverified Allergy, Unknown, 06/28/15) Objective Last 24 Hour Vital Signs Date Time Temp Pulse Resp B/P (MAP) Pulse Ox O2 Delivery O2 Flow Rate FiO2 07/01/19 08:59 63 20 30 07/01/19 08:06 105/68 07/01/19 08:00 98.5 62 20 105/68 (80) 97 07/01/19 08:00 65 07/01/19 08:00 30 07/01/19 08:00 Mechanical Ventilator 07/01/19 06:30 65 18 30 07/01/19 05:44 70 22 30 07/01/19 04:00 58 07/01/19 04:00 99.6 63 21 110/68 (82) 99 07/01/19 04:00 30 07/01/19 04:00 Mechanical Ventilator 07/01/19 03:19 78 17 30 07/01/19 00:51 76 20 30 07/01/19 00:00 99.3 65 20 118/81 (93) 100 07/01/19 00:00 Mechanical Ventilator 07/01/19 00:00 30 06/30/19 23:24 71 18 30 06/30/19 23:03 71 06/30/19 21:04 68 18 30 06/30/19 20:46 122/86 06/30/19 20:00 100.4 67 21 122/86 (98) 100 06/30/19 20:00 30 06/30/19 20:00 Mechanical Ventilator 06/30/19 19:23 74 22 30 06/30/19 19:03 71 06/30/19 16:40 67 20 30 06/30/19 16:00 98.2 55 20 110/80 (90) 100 06/30/19 16:00 30 06/30/19 16:00 Mechanical Ventilator 06/30/19 16:00 58 06/30/19 15:13 56 17 30 06/30/19 13:16 58 21 30 06/30/19 12:00 98.1 68 21 124/84 (97) 100 06/30/19 12:00 58 06/30/19 12:00 30 06/30/19 12:00 Mechanical Ventilator 06/30/19 10:49 73 27 30 Intake and Output 06/30/19 07/01/19 19:00 07:00 Intake Total 900 ml 880 ml Output Total 2200 ml 2000 ml Balance -1300 ml -1120 ml Intake Free Water 300 ml 50 ml IV Total 110 ml Tube Feeding 600 ml 720 ml Output Urine Total 2100 ml 2000 ml Stool Total 100 ml # Voids 1 Laboratory Tests 07/01/19 03:32: White Blood Count 9.2, Red Blood Count 3.30L, Hemoglobin 9.2L, Hematocrit 27.8L , Mean Corpuscular Volume 84, Mean Corpuscular Hemoglobin 28.0, Mean Corpuscular Hemoglobin Concent 33.2, Red Cell Distribution Width 15.2H, Platelet Count 525H, Mean Platelet Volume 6.1L, Neutrophils (%) (Auto) 70.5, Lymphocytes (%) (Auto) 22.5, Monocytes (%) (Auto) 4.0, Eosinophils (%) (Auto) 2.5, Basophils (%) (Auto) 0.5, Sodium Level 140, Potassium Level 3.8, Chloride Level 105, Carbon Dioxide Level 27, Anion Gap 8, Blood Urea Nitrogen 12, Creatinine 0.5L, Estimat Glomerular Filtration Rate > 60, Glucose Level 236H, Calcium Level 9.1, Phosphorus Level 2.9, Magnesium Level 1.8, Total Bilirubin 0.2, Aspartate Amino Transf (AST/SGOT) 11L, Alanine Aminotransferase (ALT/SGPT) 13, Alkaline Phosphatase 83, Total Protein 7.2, Albumin 1.8L, Globulin 5.4, Albumin/Globulin Ratio 0.3L, Amylase Level 45, Lipase 502H Height (Feet): 5 Height (Inches): 7.00 Weight (Pounds): 169 General Appearance: lethargic EENT: normal ENT inspection Neck: supple Cardiovascular: normal rate Respiratory/Chest: decreased breath sounds Abdomen: normal bowel sounds, non tender, soft Extremities: non-tender Yogi Mendoza MD Jul 01, 2019 10:10
--- NOTE | 2019-07-01 10:14 | NUR ---
NURSE NOTES: Dr. Mendoza called nurse station. Reported updates to Dr. Mendoza. Reported that patient still is soft. Dr. Mendoza acknowledged and ordered to discontinue rectal tube. Order entered, noted, and carried out. Will continue to monitor patient. Addendum: 07/01/19 at 1015 by LEANDRA AGUIRRE RN NURSE NOTES: Correction: "Reported that patient stool is soft."
--- NOTE | 2019-07-01 10:44 | Pulmonolgy Critical Care Note ---
Critical Care - Asmt/Plan Problems: (1) Nosocomial pneumonia (2) Acute pancreatitis Assessment & Plan: lipase decreasing (3) Severe anemia Assessment & Plan: h/h stable (4) Ventilator dependent (5) COPD (chronic obstructive pulmonary disease) (6) Diabetes mellitus, type II (7) Seizure disorder (8) Chronic complete quadriplegia (9) Status post tracheostomy (10) Feeding by G-tube (11) Cerebral vascular disease (12) Chronic vegetative state Respiratory: monitor respiratory rate, adjust FIO2 Cardiac: continue to monitor HR/BP Renal: F/U I&O Infectious Disease: check cultures, continue antibiotics Gastrointestinal: continue feedings/current rate Endocrine: monitor blood sugar Hematologic: monitor H/H Neurologic: PRN Ativan, PRN Morphine Prophylaxis: Protonix Notes Reviewed: nitrating acid mixer Discussed with: nurses, consultants, director casedisease case manager - Objective Last 24 Hour Vital Signs Date Time Temp Pulse Resp B/P (MAP) Pulse Ox O2 Delivery O2 Flow Rate FiO2 07/01/19 08:59 63 20 30 07/01/19 08:06 105/68 07/01/19 08:00 98.5 62 20 105/68 (80) 97 07/01/19 08:00 65 07/01/19 08:00 30 07/01/19 08:00 Mechanical Ventilator 07/01/19 06:30 65 18 30 07/01/19 05:44 70 22 30 07/01/19 04:00 58 07/01/19 04:00 99.6 63 21 110/68 (82) 99 07/01/19 04:00 30 07/01/19 04:00 Mechanical Ventilator 07/01/19 03:19 78 17 30 07/01/19 00:51 76 20 30 07/01/19 00:00 99.3 65 20 118/81 (93) 100 07/01/19 00:00 Mechanical Ventilator 07/01/19 00:00 30 06/30/19 23:24 71 18 30 06/30/19 23:03 71 06/30/19 21:04 68 18 30 06/30/19 20:46 122/86 06/30/19 20:00 100.4 67 21 122/86 (98) 100 06/30/19 20:00 30 06/30/19 20:00 Mechanical Ventilator 06/30/19 19:23 74 22 30 06/30/19 19:03 71 06/30/19 16:40 67 20 30 06/30/19 16:00 98.2 55 20 110/80 (90) 100 06/30/19 16:00 30 06/30/19 16:00 Mechanical Ventilator 06/30/19 16:00 58 06/30/19 15:13 56 17 30 06/30/19 13:16 58 21 30 06/30/19 12:00 98.1 68 21 124/84 (97) 100 06/30/19 12:00 58 06/30/19 12:00 30 06/30/19 12:00 Mechanical Ventilator 06/30/19 10:49 73 27 30 Status: awake Condition: improving HEENT: atraumatic Neck: trach Lungs: rhonchi Heart: HR/BP stable Abdomen: soft, active bowel sounds Extremities: no C/C/E Accucheck: 222 Critical Care - Subjective ROS Limited/Unobtainable: No Condition: improving EKG Rhythm: Sinus Rhythm FI02: 30 Vent Support Breath Rate: 12 Vent Support Mode: AC Vent Tidal Volume: 500 Sputum Amount: Small PEEP: 5.0 PIP: 22 Tube Feeding Amount: 60 I&O: Intake and Output 06/30/19 07/01/19 19:00 07:00 Intake Total 900 ml 880 ml Output Total 2200 ml 2000 ml Balance -1300 ml -1120 ml Intake Free Water 300 ml 50 ml IV Total 110 ml Tube Feeding 600 ml 720 ml Output Urine Total 2100 ml 2000 ml Stool Total 100 ml # Voids 1 Labs: Laboratory Tests Test 07/01/19 03:32 White Blood Count 9.2 K/UL (4.8-10.8) Red Blood Count 3.30 M/UL (4.70-6.10) L Hemoglobin 9.2 G/DL (14.2-18.0) L Hematocrit 27.8 % (42.0-52.0) L Mean Corpuscular Volume 84 FL (80-99) Mean Corpuscular Hemoglobin 28.0 PG (27.0-31.0) Mean Corpuscular Hemoglobin Concent 33.2 G/DL (32.0-36.0) Red Cell Distribution Width 15.2 % (11.6-14.8) H Platelet Count 525 K/UL (150-450) H Mean Platelet Volume 6.1 FL (6.5-10.1) L Neutrophils (%) (Auto) 70.5 % (45.0-75.0) Lymphocytes (%) (Auto) 22.5 % (20.0-45.0) Monocytes (%) (Auto) 4.0 % (1.0-10.0) Eosinophils (%) (Auto) 2.5 % (0.0-3.0) Basophils (%) (Auto) 0.5 % (0.0-2.0) Sodium Level 140 MMOL/L (136-145) Potassium Level 3.8 MMOL/L (3.5-5.1) Chloride Level 105 MMOL/L (98-107) Carbon Dioxide Level 27 MMOL/L (21-32) Anion Gap 8 mmol/L (5-15) Blood Urea Nitrogen 12 mg/dL (7-18) Creatinine 0.5 MG/DL (0.55-1.30) L Estimat Glomerular Filtration Rate > 60 mL/min (>60) Glucose Level 236 MG/DL (74-106) H Calcium Level 9.1 MG/DL (8.5-10.1) Phosphorus Level 2.9 MG/DL (2.5-4.9) Magnesium Level 1.8 MG/DL (1.8-2.4) Total Bilirubin 0.2 MG/DL (0.2-1.0) Aspartate Amino Transf (AST/SGOT) 11 U/L (15-37) L Alanine Aminotransferase (ALT/SGPT) 13 U/L (12-78) Alkaline Phosphatase 83 U/L (46-116) Total Protein 7.2 G/DL (6.4-8.2) Albumin 1.8 G/DL (3.4-5.0) L Globulin 5.4 g/dL Albumin/Globulin Ratio 0.3 (1.0-2.7) L Amylase Level 45 U/L (25-115) Lipase 502 U/L (73-393) H Suzette Wallace MD Jul 01, 2019 10:44
--- NOTE | 2019-07-01 10:46 | NUR ---
NURSE NOTES: Dr. Wallace at nurse station. Informed MD peripheral IV inserted. Dr. Wallace acknowledged and ordered to discontinued right chest subclavian triple lumen access. Right hand 22 g peripheral IV inserted on right hand. Primary nurse and charge nurse at bedside, right chest subclavian triple lumen catheter discontinued at bedside, tip noted intact. Applied pressure to site for 5 minutes. No active bleeding noted. Applied pressure dressing to site. Will continue to monitor patient.
--- NOTE | 2019-07-01 11:38 | Infectious Diseases Prog Note ---
Assessment/Plan Assessment/Plan Assessment: Severe Sepsis ESBL E.coli UTI c/w bacteremia Multifocal PNA -06/28 Bcx NTD -06/25 CXR: Bilateral interstitial and airspace disease, left greater than right, again demonstrated. Left-sided pleural effusion is again demonstrated -sp cx ESBL E.coli -u/a wbc tnct, nit neg, leuk +3; ucx >100k ESBL E.coli (S Zosyn, Imi, Amikacin) -06/21 Bcx 06/17 ESBL E.coli (S Zosyn, Imi, Amikacin); 06/23 Bcx Neg -06/21 CXR:.New bilateral patchy airspace opacities in the left midlung an as well as the right upper lung concerning for multifocal pneumonia. Similar retrocardiac atelectasis or consolidation. -influenza sc neg Severe anion gap metabolic acidosis - ?etiology- normal lactic acid, normal Cr- BG levels between 119-170s- r/o DKA vs other Fever, recurrent; improving Mild leukocytosis, SP HTN asthma COPD persistent vegetative state CVA Dm2 chronic respiratory failure s/p trach/vent dependent Dysphagia s/p GT [place] resident Plan: -Continue Meropenem #8 (abx d #01/25) for ESBL UTI and bacteremia and PNA -06/25 SP IV Linezolid #3 -06/24 SP Tamiflu #2, IV amikacin #2, Cefepime #3 -06/23 SP flagyl #3 -06/22 SP Ertapenem x1 -06/21 SP Zosyn x1 -f/u cx -Monitor CBC/CMP, temperatures -f/u Bcx x2 -GT/trach care -aspiration precautions -neprho f/u -CXR am Thank you for this consultation. Will continue to follow along with you. Subjective Allergies: Coded Allergies: NO KNOWN DRUG ALLERGIES (Unverified Allergy, Unknown, 06/28/15) Subjective Tm 100.4 no leukocytosis repeat Bcx NTD Objective Vital Signs Last 24 Hour Vital Signs Date Time Temp Pulse Resp B/P (MAP) Pulse Ox O2 Delivery O2 Flow Rate FiO2 07/01/19 10:30 64 24 30 07/01/19 08:59 63 20 30 07/01/19 08:06 105/68 07/01/19 08:00 98.5 62 20 105/68 (80) 97 2/18/20 08:00 65 07/01/19 08:00 30 07/01/19 08:00 Mechanical Ventilator 07/01/19 06:30 65 18 30 07/01/19 05:44 70 22 30 07/01/19 04:00 58 07/01/19 04:00 99.6 63 21 110/68 (82) 99 07/01/19 04:00 30 07/01/19 04:00 Mechanical Ventilator 07/01/19 03:19 78 17 30 07/01/19 00:51 76 20 30 07/01/19 00:00 99.3 65 20 118/81 (93) 100 07/01/19 00:00 Mechanical Ventilator 07/01/19 00:00 30 06/30/19 23:24 71 18 30 06/30/19 23:03 71 06/30/19 21:04 68 18 30 06/30/19 20:46 122/86 06/30/19 20:00 100.4 67 21 122/86 (98) 100 06/30/19 20:00 30 06/30/19 20:00 Mechanical Ventilator 06/30/19 19:23 74 22 30 06/30/19 19:03 71 06/30/19 16:40 67 20 30 06/30/19 16:00 98.2 55 20 110/80 (90) 100 06/30/19 16:00 30 06/30/19 16:00 Mechanical Ventilator 06/30/19 16:00 58 06/30/19 15:13 56 17 30 06/30/19 13:16 58 21 30 06/30/19 12:00 98.1 68 21 124/84 (97) 100 06/30/19 12:00 58 06/30/19 12:00 30 06/30/19 12:00 Mechanical Ventilator Height (Feet): 5 Height (Inches): 7.00 Weight (Pounds): 169 Objective General Appearance: alert, Chronically Ill ENT: dry mucus membranes Neck: supple, tracheotomy Respiratory: normal inspection, no respiratory distress, no wheezing Cardiovascular: regular rate, rhythm, no edema Gastrointestinal: normal bowel sounds, soft, no guarding, no hernia Musculoskeletal: normal range of motion, other - Bilateral upper and lower extremity motor weakness. Skin: no rash Laboratory Tests Test 07/01/19 03:32 White Blood Count 9.2 K/UL (4.8-10.8) Red Blood Count 3.30 M/UL (4.70-6.10) L Hemoglobin 9.2 G/DL (14.2-18.0) L Hematocrit 27.8 % (42.0-52.0) L Mean Corpuscular Volume 84 FL (80-99) Mean Corpuscular Hemoglobin 28.0 PG (27.0-31.0) Mean Corpuscular Hemoglobin Concent 33.2 G/DL (32.0-36.0) Red Cell Distribution Width 15.2 % (11.6-14.8) H Platelet Count 525 K/UL (150-450) H Mean Platelet Volume 6.1 FL (6.5-10.1) L Neutrophils (%) (Auto) 70.5 % (45.0-75.0) Lymphocytes (%) (Auto) 22.5 % (20.0-45.0) Monocytes (%) (Auto) 4.0 % (1.0-10.0) Eosinophils (%) (Auto) 2.5 % (0.0-3.0) Basophils (%) (Auto) 0.5 % (0.0-2.0) Sodium Level 140 MMOL/L (136-145) Potassium Level 3.8 MMOL/L (3.5-5.1) Chloride Level 105 MMOL/L (98-107) Carbon Dioxide Level 27 MMOL/L (21-32) Anion Gap 8 mmol/L (5-15) Blood Urea Nitrogen 12 mg/dL (7-18) Creatinine 0.5 MG/DL (0.55-1.30) L Estimat Glomerular Filtration Rate > 60 mL/min (>60) Glucose Level 236 MG/DL (74-106) H Calcium Level 9.1 MG/DL (8.5-10.1) Phosphorus Level 2.9 MG/DL (2.5-4.9) Magnesium Level 1.8 MG/DL (1.8-2.4) Total Bilirubin 0.2 MG/DL (0.2-1.0) Aspartate Amino Transf (AST/SGOT) 11 U/L (15-37) L Alanine Aminotransferase (ALT/SGPT) 13 U/L (12-78) Alkaline Phosphatase 83 U/L (46-116) Total Protein 7.2 G/DL (6.4-8.2) Albumin 1.8 G/DL (3.4-5.0) L Globulin 5.4 g/dL Albumin/Globulin Ratio 0.3 (1.0-2.7) L Amylase Level 45 U/L (25-115) Lipase 502 U/L (73-393) H Current Medications Medications (Trade) Dose Ordered Sig/Tony Route PRN Reason Start Time Stop Time Status Last Admin Dose Admin Acetaminophen (Tylenol) 650 mg Q4H PRN GT Mild Pain/Temp > 100.5 06/26/19 05:45 07/22/19 05:44 06/29/19 09:50 Chlorhexidine Gluconate (Kay-Hex 2%) 1 applic DAILY@2000 TOPIC 06/26/19 20:00 07/22/19 19:59 06/30/19 20:00 Dextrose (Dextrose 50%) 25 ml Q30M PRN IV Hypoglycemia 06/26/19 05:30 07/21/19 21:59 Dextrose (Dextrose 50%) 50 ml Q30M PRN IV Hypoglycemia 06/26/19 05:30 07/21/19 21:59 Enalapril Maleate (Vasotec) 2.5 mg EVERY 12 HOURS ORAL 06/26/19 21:00 07/26/19 20:59 06/30/19 20:46 Insulin Aspart (NovoLOG) Q6HR SUBQ 06/26/19 06:00 07/22/19 00:00 07/01/19 05:31 Levetiracetam (Keppra) 500 mg Q12HR GT 06/26/19 09:00 07/22/19 08:59 07/01/19 08:06 Meropenem 1 gm/ Sodium Chloride 55 ml @ 110 mls/hr Q8HR IVPB 06/26/19 14:00 07/08/19 13:59 07/01/19 05:19 Pantoprazole (Protonix) 40 mg Q12HR IVP 06/26/19 09:00 07/22/19 06:29 07/01/19 08:06 Polyethylene Glycol (Miralax) 17 gm PRN PRN GT Constipation 06/26/19 05:45 07/21/19 05:44 Potassium Chloride (K-Dur) 40 meq DAILY ORAL 06/29/19 09:00 07/28/19 14:14 07/01/19 08:06 Spironolactone (Aldactone) 25 mg BID GT 06/28/19 09:00 07/27/19 08:59 07/01/19 08:06 Laura Gimenez M.D. Jul 01, 2019 11:38
[2019-07-01 12:00] VITALS: BP 102/66
--- NOTE | 2019-07-01 12:17 | Surgery Progress Note ---
Surgery Progress Note Subjective Additional Comments no acute events comfortable stable Objective Last 24 Hour Vital Signs Date Time Temp Pulse Resp B/P (MAP) Pulse Ox O2 Delivery O2 Flow Rate FiO2 07/01/19 12:00 97.9 67 20 102/66 (78) 97 07/01/19 12:00 30 07/01/19 12:00 Mechanical Ventilator 07/01/19 10:30 64 24 30 07/01/19 08:59 63 20 30 07/01/19 08:06 105/68 07/01/19 08:00 98.5 62 20 105/68 (80) 97 07/01/19 08:00 65 07/01/19 08:00 30 07/01/19 08:00 Mechanical Ventilator 07/01/19 06:30 65 18 30 07/01/19 05:44 70 22 30 07/01/19 04:00 58 07/01/19 04:00 99.6 63 21 110/68 (82) 99 07/01/19 04:00 30 07/01/19 04:00 Mechanical Ventilator 07/01/19 03:19 78 17 30 07/01/19 00:51 76 20 30 07/01/19 00:00 99.3 65 20 118/81 (93) 100 07/01/19 00:00 Mechanical Ventilator 07/01/19 00:00 30 06/30/19 23:24 71 18 30 06/30/19 23:03 71 06/30/19 21:04 68 18 30 06/30/19 20:46 122/86 06/30/19 20:00 100.4 67 21 122/86 (98) 100 06/30/19 20:00 30 06/30/19 20:00 Mechanical Ventilator 06/30/19 19:23 74 22 30 06/30/19 19:03 71 06/30/19 16:40 67 20 30 06/30/19 16:00 98.2 55 20 110/80 (90) 100 06/30/19 16:00 30 06/30/19 16:00 Mechanical Ventilator 06/30/19 16:00 58 06/30/19 15:13 56 17 30 06/30/19 13:16 58 21 30 I&O Intake and Output 06/30/19 07/01/19 19:00 07:00 Intake Total 900 ml 880 ml Output Total 2200 ml 2000 ml Balance -1300 ml -1120 ml Intake Free Water 300 ml 50 ml IV Total 110 ml Tube Feeding 600 ml 720 ml Output Urine Total 2100 ml 2000 ml Stool Total 100 ml # Voids 1 Dressing: other Wound: other Drains: other Cardiovascular: RSR Respiratory: decreased breath sounds Abdomen: soft, present bowel sounds Extremities: no cyanosis Laboratory Tests Test 07/01/19 03:32 White Blood Count 9.2 K/UL (4.8-10.8) Red Blood Count 3.30 M/UL (4.70-6.10) L Hemoglobin 9.2 G/DL (14.2-18.0) L Hematocrit 27.8 % (42.0-52.0) L Mean Corpuscular Volume 84 FL (80-99) Mean Corpuscular Hemoglobin 28.0 PG (27.0-31.0) Mean Corpuscular Hemoglobin Concent 33.2 G/DL (32.0-36.0) Red Cell Distribution Width 15.2 % (11.6-14.8) H Platelet Count 525 K/UL (150-450) H Mean Platelet Volume 6.1 FL (6.5-10.1) L Neutrophils (%) (Auto) 70.5 % (45.0-75.0) Lymphocytes (%) (Auto) 22.5 % (20.0-45.0) Monocytes (%) (Auto) 4.0 % (1.0-10.0) Eosinophils (%) (Auto) 2.5 % (0.0-3.0) Basophils (%) (Auto) 0.5 % (0.0-2.0) Sodium Level 140 MMOL/L (136-145) Potassium Level 3.8 MMOL/L (3.5-5.1) Chloride Level 105 MMOL/L (98-107) Carbon Dioxide Level 27 MMOL/L (21-32) Anion Gap 8 mmol/L (5-15) Blood Urea Nitrogen 12 mg/dL (7-18) Creatinine 0.5 MG/DL (0.55-1.30) L Estimat Glomerular Filtration Rate > 60 mL/min (>60) Glucose Level 236 MG/DL (74-106) H Calcium Level 9.1 MG/DL (8.5-10.1) Phosphorus Level 2.9 MG/DL (2.5-4.9) Magnesium Level 1.8 MG/DL (1.8-2.4) Total Bilirubin 0.2 MG/DL (0.2-1.0) Aspartate Amino Transf (AST/SGOT) 11 U/L (15-37) L Alanine Aminotransferase (ALT/SGPT) 13 U/L (12-78) Alkaline Phosphatase 83 U/L (46-116) Total Protein 7.2 G/DL (6.4-8.2) Albumin 1.8 G/DL (3.4-5.0) L Globulin 5.4 g/dL Albumin/Globulin Ratio 0.3 (1.0-2.7) L Amylase Level 45 U/L (25-115) Lipase 502 U/L (73-393) H Plan Problems: (1) Decubitus skin ulcer Assessment & Plan: Pt presented on admission with multiple pressure injuries and Moisture Associated Skin damage Buttocks and Bilateral groin. Both earlobes including medial canals noted to have scaly red plaques and and small lesions. Full thickness stage 3 pressure injury posterior neck under collar of trach. Base of wound has 25% slough,75% beefy red .Small amt serosanguineous exudate noted. Borders are macerated. Surrounding skin is clean and dry. Moisture Associated Skin Damage noted to bilateral groin areas,Buttocks and bilateral ischium. Skin is grossly erythematous and denuded with scattered satellite lesions. Full thickness stage 3 sacral pressure injury. Base of wound is 25% necrotic ,30 % slough ,otherwise beefy red with small amt serous exudate.Borders are macerated.(L)(L)8.5cm x (W)10cm. Periwound MASD. Full Thickness stage 3 pressure injury R trochanter. Base of wound 80% beefy red ,20% slough. Small amt serous exudate. Borders are macerated(L)3cm x (W) 3.2cm. No odor noted.Periwound MASD. Full Thickness stage 3 pressure injury R ischium. Base of wound is 25% necrotic , beefy red with scattered slough. Borders are macerated. Small amt serous exudate noted. No odor noted.(L)5.3cm x (W)3.9cm. Periwound MASD. Full thickness stage 3 pressure injury L Ischium. Base of wound is beefy red and moist. Borders are macerated. Small amt serous exudate noted.(L)4cm x (W) 3.2cm x (D)0.2cm. Both heels are pink and easily blanchable. Bilat foot drop noted. Tx.Plan: Cleanse wounds on Buttocks, sacrum, ishium, trochanter with Saline. Apply Therahoney to wounds. Apply Triad Paste periwound to cover erythematous skin. Cover with Optifoam drsgs Daily and prn. Apply Phytoplex Lotion to R and L ears daily and prn. Apply Cavilon Skin Barrier to Both heels. Cover each heel with Optifoam drsg. Change every 7 days and prn. APM/MAICOL Mattress overlay. Reposition at least every 2hours or as tolerated. Off-load heels with pillow. Place pillow between knees. (2) Feeding by G-tube Assessment & Plan: DAILY ESTIMATED NEEDS: Needs based on Critical care, wounds 73kg 22-30 kcals/kg 1332-3890 total kcals 1.25-2 g protein/kg 91-146 g total protein 25-30 mL/kg [id number] total fluid mLs NUTRITION DIAGNOSIS: 1) Increased kcal/pro needs R/T wound healing as evidenced by pt admitted w/ multiple wounds, sacral, BL buttocks full thickness. 2) Swallowing difficulty R/T respiratory status as evidenced by pt trach/PEG dep for all nutritional needs. CURRENT TF: Glucerna 1.2 @40/hr ENTERAL NUTRITION RECOMMENDATIONS: Glucerna 1.5 @ 50ml/hr x 24 hrs + Prosource x1 to provide 1200ml, 1800kcal, 99g + 11g prot, 911ml free water - Rec TF change to Glucerna 1.5 to better meet est kcal and protein needs - Start @ 20ml/hr x 6 hrs, increase by 10ml every 4-6 hrs to goal rate as tolerated - HOB 30-45 degrees/ water flush per MD ADDITIONAL RECOMMENDATIONS: 1. Maintain calibrated bed scale for accurate CBW 2. Wound healing: Add Christian 1pkt BID F/up w/ WC RN eval 3. Monitor lytes daily, replete as needed Elevated Na (150), rec increase water flushes 4. F/up w/ H&P (3) Status post tracheostomy Assessment & Plan: need to monitor trach collar closely as worsening wound keep protected as above will monitor Steve Franks Jul 01, 2019 12:17
--- NOTE | 2019-07-01 12:20 | NUR ---
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 Noted. Will continue to monitor patient.
--- NOTE | 2019-07-01 12:27 | Nephrology Progress Note ---
Assessment/Plan Problem List: (1) Metabolic acidosis Assessment: resolved (2) Acute blood loss anemia (3) Hypokalemia (4) Chronic respiratory failure Assessment Metabolic Acidosis HypoKalemia HyperNatremia Severe Anemia Other Conditions: (1) Nosocomial pneumonia (2) Sepsis (3) Ventilator dependent (4) Chronic vegetative state (5) COPD (chronic obstructive pulmonary disease) (6) Feeding by G-tube (7) Diabetes mellitus, type II (8) Cerebral vascular disease (9) Seizure disorder (10) Chronic complete quadriplegia Plan stop stool softners and laxatives add aldactone K and Phos and Mag supplement as needed mag supplement Off Bicitra GT D5W IV fluid as needed Protonix IV watch H&H Transfusion as needed per orders Subjective ROS Limited/Unobtainable: Yes Objective Objective Last 24 Hour Vital Signs Date Time Temp Pulse Resp B/P (MAP) Pulse Ox O2 Delivery O2 Flow Rate FiO2 07/01/19 12:00 97.9 67 20 102/66 (78) 97 07/01/19 12:00 30 07/01/19 12:00 Mechanical Ventilator 07/01/19 10:30 64 24 30 07/01/19 08:59 63 20 30 07/01/19 08:06 105/68 07/01/19 08:00 98.5 62 20 105/68 (80) 97 07/01/19 08:00 65 07/01/19 08:00 30 07/01/19 08:00 Mechanical Ventilator 07/01/19 06:30 65 18 30 07/01/19 05:44 70 22 30 07/01/19 04:00 58 07/01/19 04:00 99.6 63 21 110/68 (82) 99 07/01/19 04:00 30 07/01/19 04:00 Mechanical Ventilator 07/01/19 03:19 78 17 30 07/01/19 00:51 76 20 30 07/01/19 00:00 99.3 65 20 118/81 (93) 100 07/01/19 00:00 Mechanical Ventilator 07/01/19 00:00 30 06/30/19 23:24 71 18 30 06/30/19 23:03 71 06/30/19 21:04 68 18 30 06/30/19 20:46 122/86 06/30/19 20:00 100.4 67 21 122/86 (98) 100 06/30/19 20:00 30 06/30/19 20:00 Mechanical Ventilator 06/30/19 19:23 74 22 30 06/30/19 19:03 71 06/30/19 16:40 67 20 30 06/30/19 16:00 98.2 55 20 110/80 (90) 100 06/30/19 16:00 30 06/30/19 16:00 Mechanical Ventilator 06/30/19 16:00 58 06/30/19 15:13 56 17 30 06/30/19 13:16 58 21 30 Intake and Output 06/30/19 07/01/19 19:00 07:00 Intake Total 900 ml 880 ml Output Total 2200 ml 2000 ml Balance -1300 ml -1120 ml Intake Free Water 300 ml 50 ml IV Total 110 ml Tube Feeding 600 ml 720 ml Output Urine Total 2100 ml 2000 ml Stool Total 100 ml # Voids 1 Current Medications Medications (Trade) Dose Ordered Sig/Tony Route PRN Reason Start Time Stop Time Status Last Admin Dose Admin Acetaminophen (Tylenol) 650 mg Q4H PRN GT Mild Pain/Temp > 100.5 06/26/19 05:45 07/22/19 05:44 06/29/19 09:50 Chlorhexidine Gluconate (Kay-Hex 2%) 1 applic DAILY@2000 TOPIC 06/26/19 20:00 07/22/19 19:59 06/30/19 20:00 Dextrose (Dextrose 50%) 25 ml Q30M PRN IV Hypoglycemia 06/26/19 05:30 07/21/19 21:59 Dextrose (Dextrose 50%) 50 ml Q30M PRN IV Hypoglycemia 06/26/19 05:30 07/21/19 21:59 Enalapril Maleate (Vasotec) 2.5 mg EVERY 12 HOURS ORAL 06/26/19 21:00 07/26/19 20:59 06/30/19 20:46 Insulin Aspart (NovoLOG) Q6HR SUBQ 06/26/19 06:00 07/22/19 00:00 07/01/19 12:00 Levetiracetam (Keppra) 500 mg Q12HR GT 06/26/19 09:00 07/22/19 08:59 07/01/19 08:06 Meropenem 1 gm/ Sodium Chloride 55 ml @ 110 mls/hr Q8HR IVPB 06/26/19 14:00 07/08/19 13:59 07/01/19 05:19 Pantoprazole (Protonix) 40 mg Q12HR IVP 06/26/19 09:00 07/22/19 06:29 07/01/19 08:06 Polyethylene Glycol (Miralax) 17 gm PRN PRN GT Constipation 06/26/19 05:45 07/21/19 05:44 Potassium Chloride (K-Dur) 40 meq DAILY ORAL 06/29/19 09:00 07/28/19 14:14 07/01/19 08:06 Spironolactone (Aldactone) 25 mg BID GT 06/28/19 09:00 07/27/19 08:59 07/01/19 08:06 Laboratory Tests 07/01/19 03:32: White Blood Count 9.2, Red Blood Count 3.30L, Hemoglobin 9.2L, Hematocrit 27.8L , Mean Corpuscular Volume 84, Mean Corpuscular Hemoglobin 28.0, Mean Corpuscular Hemoglobin Concent 33.2, Red Cell Distribution Width 15.2H, Platelet Count 525H, Mean Platelet Volume 6.1L, Neutrophils (%) (Auto) 70.5, Lymphocytes (%) (Auto) 22.5, Monocytes (%) (Auto) 4.0, Eosinophils (%) (Auto) 2.5, Basophils (%) (Auto) 0.5, Sodium Level 140, Potassium Level 3.8, Chloride Level 105, Carbon Dioxide Level 27, Anion Gap 8, Blood Urea Nitrogen 12, Creatinine 0.5L, Estimat Glomerular Filtration Rate > 60, Glucose Level 236H, Calcium Level 9.1, Phosphorus Level 2.9, Magnesium Level 1.8, Total Bilirubin 0.2, Aspartate Amino Transf (AST/SGOT) 11L, Alanine Aminotransferase (ALT/SGPT) 13, Alkaline Phosphatase 83, Total Protein 7.2, Albumin 1.8L, Globulin 5.4, Albumin/Globulin Ratio 0.3L, Amylase Level 45, Lipase 502H Height (Feet): 5 Height (Inches): 7.00 Weight (Pounds): 169 General Appearance: no apparent distress EENT: other - trach- Vent Cardiovascular: bradycardia Respiratory/Chest: decreased breath sounds Abdomen: soft Fouladian,Ricky MD Jul 01, 2019 12:27
--- NOTE | 2019-07-01 12:54 | NUR ---
*-*DISCHARGE PLANNING*-* PATIENT HAS BEEN REFERRED BACK TO: [facility] P: [phone] F: [phone] *-*CLINICALS FAXED*-*
--- NOTE | 2019-07-01 13:04 | NUR ---
NURSE NOTES: Contacted and informed Dr. Gimenez that patient has been discharged by Dr. Wallace. Dr. Gimenez acknowledged and ordered to continue Meropenem 1 gm IV Q8HR upon discharge to [facility]. Noted. Addendum: 07/01/19 at 1306 by LEANDRA AGUIRRE RN NURSE NOTES: Addendum: Per Dr. Gimenez, "Continue Meropenem 1 gm IV Q8HR x 6 more days." Noted.
--- NOTE | 2019-07-01 13:49 | NUR ---
*-*DISCHARGE PLANNING*-* PATIENT HAS BEEN ACCEPTED BACK TO: [facility] P: [phone] F: [phone]
--- NOTE | 2019-07-01 14:25 | NUR ---
*-*DISCHARGE PLANNED*-* PATIENT IS BEING DISCHARGED BACK TO: [facility] P: [phone] F: [phone] # 10.C [facility] S/W M[facility] JO [id number] ETA 3:15PM/1515PM
--- NOTE | 2019-07-01 15:10 | NUR ---
NURSE NOTES: Called [facility] and gave report to MANUEL Browne. Informed MANUEL Browne that patient will be continued on Meropenem 1 gm IV Q8HR x [address] Gimenez. MANUEL Browne acknowledged. Faxed copy of medication list to their facility, . Noted.
--- NOTE | 2019-07-01 15:59 | NUR ---
NURSE NOTES: Contacted [facility] to follow up on ride. Per personnel, transportation is 10 minutes away. Charge nurse made aware. Noted.
[2019-07-01 16:00] VITALS: BP 104/73
[2019-07-01] MEDS ORDERED: Tubing IV Secondary IV ONE (16:49)
[2019-07-01] MEDS ORDERED: NS 275ml ONE (16:49)
--- NOTE | 2019-07-01 16:53 | NUR ---
NURSE NOTES: Patient discharged back to [place] per Dr. Wallace. Gave report to [facility] RN and EMT. Patient left with right hand peripheral IV as that patient will be receiving IV antibiotics at SNF. Patient left with urinary byrnes catheter as ordered by Dr. Wallace as that patient have neurogenic bladder and retention. Patient has no belongings. Patient left with 2 sewer contractor and 1 RN to [place]. Noted.
--- NOTE | 2019-07-02 19:01 | Discharge Summary ---
Discharge Summary Discharge Summary _ DATE OF ADMISSION: 06/21/2019 DATE OF DISCHARGE: 07/01/2019 DISCHARGED BY: Dr. Wallace REASON FOR ADMISSION: 48 years old male, resident of [facility] facility, with past medical history of chronic respiratory failure, ventilator dependent with tracheostomy status, hypertension, COPD, insulin-dependent diabetes mellitus, dysphagia, feeding by G-tube, persistent vegetative state, history of cerebrovascular disease with CVA, seizure disorder, was sent from the [facility] due to respiratory distress. In emergency department patient was tachycardic ,tachypneic ,hypotensive. Central line was placed for possible pressors. Initially patient had no leukocytosis ,hemoglobin 9.1 ,hematocrit 28.9. CO2 9, anion gap 23. BUN 22, creatinine 1.0. Glucose 179. Lactic acid 1.6. Troponin negative. ABG revealed acute metabolic acidosis pH 7.20, PCO2 19, bicarb 7.5. Lipase > 2000. Chest x-ray demonstrated new bilateral patchy airspace opacity in the left midlung and right upper lung ,concerning for multifocal pneumonia. Septic work-up initiated , and patient admitted to ICU for further management. CONSULTANTS: pulmonary Dr. Wallace ID specialist Dr. Gimenez GI specialist Dr. Mendoza aviation all source intelligence Dr. Green autism teacher/oncologist Dr. Solares [facility] COURSE: Patient admitted to ICU. Patient started on fluid resuscitation. Hemodynamic status was closely monitored with goal to keep mean arterial blood pressure above 65. Fortunately we were able to avoid pressors. Sodium bicarbonate provided. Acid-base parameters were closely monitored. Patient started on empiric antibiotics. Blood culture revealed E. coli ESBL. Urine culture revealed E. coli ESBL. Sputum culture revealed E. coli ESBL. Influenza swab was negative. Antibiotic regimen optimized as per ID specialist recommendation. During the stay , patient developed mild leukocytosis , which eventually resolved. Intermittent fevers resolved. Repeated blood cultures were negative. ID specialist recommended to continue meropenem at the [facility] to complete the course. Mental Retardation Nurse followed. Renal parameters, electrolytes and acid-base parameters were closely monitored and corrected as needed. Prior to discharge all electrolytes and renal parameters stable. Bicarb up to 16. Patient was continued on Bicitra via G-tube at the facility. Hemoglobin and hematocrit were closely monitored with goal to keep hemoglobin above 7. Patient received total of 4 units of packed red blood cells while in the hospital. Initially after transfusion hemoglobin improved but then trended down again. Stool for occult blood with was positive x1 and s negative x1. Patient was on IV Venofer as per autism teacher recommendation. Per autism teacher, patient had anemia due to chronic disease versus GI bleeding. Prior to discharge hemoglobin 9.2, hematocrit 27.8. Ventilator support and pulmonary toilet provided. Tracheostomy care provided. Patient was followed-up with chest x-ray. Ventilator settings titrated as needed. Venous duplex bilateral lower extremity revealed no evidence of acute DVT. Abdominal ultrasound demonstrated hepatomegaly with fatty infiltration. Mild gallbladder wall thickening, nonspecific. Initially patient noted to have a lipase over 2000. Lipase was closely monitored, trended down; prior to discharge lipase down to 502. CT scan of abdomen pelvis all done for evaluation of pancreatitis, which was carefully reviewed by GI specialist. CT scan revealed no gallstone. No evidence of intrahepatic or extrahepatic biliary ductal dilatation. Central predominant airspace and intestine interstitial opacity within the visualized lung bases. Mild left hydroureteronephrosis. Pancreas was unremarkable. GI prophylaxis with PPI provided. Bowel regimen instituted. Per GI specialist, given stable H&H for the last 3 days and repeated stool for occult blood being negative ,GI procedure was ,on hold for at this time. Patient initially had rectal tube , which was discontinued. Strict aspiration precaution maintained. Tube feeding with formula and goal rate provided as per registered radiographer recommendation. Patient presented on admission with multiply deep tissue pressure injury. Wound care provided as per surgeon recommendation. Continue wound care at the facility. Blood sugar was managed with sliding scale of insulin. Seizure precaution maintained. Keppra continued. No evidence of seizure activity while in the hospital. Patient clinically stabilized and was ready for transfer to [facility]acute [facility] facility for continuation of care. FINAL DIAGNOSES: Severe sepsis with E. coli ESBL bacteremia E. coli ESBL UTI Multifocal pneumonia Severe anion gap metabolic acidosis Elevated lipase -resolved Ventilator dependent COPD Severe anemia of acute blood loss Electrolyte abnormalities : hypokalemia hypernatremia Diabetes mellitus Seizure disorder CVA with quadriplegia Chronic respiratory failure, ventilator dependent Tracheostomy status Dysphagia , feeding by G-tube Cerebrovascular disease Chronic vegetative state Multiply deep tissue pressure injury present on admission. DISCHARGE MEDICATIONS: List of medication was sent to accepting facility. DISCHARGE INSTRUCTIONS: Patient was discharged to the [facility] facility. Follow up with medical doctor at the facility. I have been assigned to dictate discharge summary for this account. I was not involved in the patient's management. Malu Lindo NP Jul 02, 2019 19:01
== END 2019-07-01 16:50 | DRG 720 ==
LOC: EDBD 17:36 → EMR 18:10 → ICU 18:15 → EDBEDREQ 18:22 → 2W 06-26 05:29
PROC: 5A1955Z Respiratory Ventilation, Greater than 96 Consecutive Hours (ICD-10-PCS; principal; 2019-06-21)
PROC: 05H533Z Insertion of Infusion Device into Right Subclavian Vein, Percutaneous Approach (ICD-10-PCS; 2019-06-21)
DX: A41.9 Sepsis, unspecified organism (principal); L89.893 Pressure ulcer of other site, stage 3; L89.153 Pressure ulcer of sacral region, stage 3; L89.223 Pressure ulcer of left hip, stage 3; L89.213 Pressure ulcer of right hip, stage 3; J18.9 Pneumonia, unspecified organism; G82.50 Quadriplegia, unspecified; D65 Disseminated intravascular coagulation [defibrination syndrome]; J44.0 Chronic obstructive pulmonary disease with (acute) lower respiratory infection; J96.11 Chronic respiratory failure with hypoxia; R65.20 Severe sepsis without septic shock; E78.5 Hyperlipidemia, unspecified; Z93.0 Tracheostomy status; Z93.1 Gastrostomy status; R40.3 Persistent vegetative state; D50.9 Iron deficiency anemia, unspecified; Z99.11 Dependence on respirator [ventilator] status; R13.10 Dysphagia, unspecified; I10 Essential (primary) hypertension; E11.9 Type 2 diabetes mellitus without complications; E87.6 Hypokalemia; E87.0 Hyperosmolality and hypernatremia; G40.909 Epilepsy, unspecified, not intractable, without status epilepticus; R62.7 Adult failure to thrive; Z68.26 Body mass index [BMI] 26.0-26.9, adult; N39.0 Urinary tract infection, site not specified; B96.20 Unspecified Escherichia coli [E. coli] as the cause of diseases classified elsewhere; K85.90 Acute pancreatitis without necrosis or infection, unspecified
CPT/HCPCS: 36415; 36600; 71045; 74177; 76700; 76856; 80048; 80053; 80061; 80076; 80150; 80299; 81003; 82009; 82010; 82150; 82270; 82306; 82550; 82553; 82607; 82728; 82746; 82803; 82962; 82977; 83036; 83540; 83550; 83605; 83690; 83735; 83880; 84100; 84443; 84484; 84550; 85007; 85025; 85610; 85730; 86140; 86710; 86850; 86900; 86901; 86920; 87040; 87070; 87081; 87086; 87181; 87205; 93005; 93970; 94002; 94003; 94664; 96360; 99291; J1815; J7030; J8499

== ENCOUNTER 2020-06-27 05:00 | Inpatient (IN) | payer MEDICAID ==
[~2020-06-27] VITALS: Ht 172.7 cm; Wt 81.6 kg
--- NOTE | 2020-06-27 05:00 | NUR ---
ED Nurse Note: Patient brought in to the ED by EMS RA 26, from [facility]. Patient was found tachycardic 150's and with O2 sat 88% at 4:30 AM today by nurses at the facility. Patient is AOX0, persistent vegetative state. Patient is a full code, has a tracheostomy, feeding tube, byrnes catheter. Temp 99.5, Blood Glucose 479.
[2020-06-27] MEDS ORDERED: Acetaminophen 650 MG SUPP RECTAL ONE (05:15)
--- NOTE | 2020-06-27 05:28 | NUR ---
ED Nurse Note: IV fluids infusing line patent, tylenol supp administered. Central line placed by ER Amarilis HALL dr.
--- NOTE | 2020-06-27 05:30 | NUR ---
Unable to scan in medications.
--- NOTE | 2020-06-27 05:31 | Emergency Room Report ---
History of Present Illness General Chief Complaint: Dyspnea/Respdistress Source: Medical Record, EMS (Oneal Olmos MD) Present Illness HPI This is a 49-year-old unfortunate male who is in a vegetative state. He has a tracheostomy and a feeding tube and an chronic indwelling Waddell. Presents with chief complaint of fever, hypoxia, rest or distress. He was noted to be like this tonight. Unable to get any other history from him. He had negative Covid test in May. He finished his rounds of Covid vaccine already. He has been admitted here multiple times for sepsis. History is limited because of patient's condition. History is through EMS and [facility] note. 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: Yes - may 2020 COVID-19 Screening: Negative COVID-19 COVID-19 Testing Source: [place] (Oneal Olmos MD) Patient History Past Medical History: see triage record, old chart reviewed Past Surgical History: other Pertinent Family History: none Social History: Denies: smoking Immunizations: other Reviewed Nursing Documentation: PMH: Agreed; PSxH: Agreed (Oneal Olmos MD) Nursing Documentation-PMH Hx Hypertension: Yes Hx Asthma: Yes Hx COPD: Yes Hx Diabetes: Yes Hx Cancer: No Hx Gastrointestinal Problems: Yes - dysphagia Hx Neurological Problems: Yes - Persistent vegetative state Hx Cerebrovascular Accident: Yes Hx Seizures: Yes Hx Epilepsy: Yes Hx Paralysis: Yes Hx Memory Loss: Yes Hx Concentration Difficulty: Yes Hx Speech Problem: Yes - tracheostomy Hx Aphasia: Yes Hx Dysphasia: Yes Hx Weakness: Yes (Oneal Olmos MD) Review of Systems Constitutional: Reports: fever Respiratory: Reports: shortness of breath All Other Systems: limited - Secondary to condition (Oneal Olmos MD) Physical Exam Vital Signs Date Time Temp Pulse Resp B/P (MAP) Pulse Ox O2 Delivery O2 Flow Rate FiO2 06/27/20 04:58 95.5 150 20 104/62 (76) 92 Endotracheal Tube 15.0 Vitals with tachycardia and hypoxia Sp02 EP Interpretation: abnormal General Appearance: moderate distress, lethargic, Chronically Ill Eyes: bilateral eye PERRL ENT: dry mucus membranes Neck: tracheotomy Respiratory: respiratory distress, decreased breath sounds, accessory muscle use, rhonchi Cardiovascular #1: tachycardia Gastrointestinal: distended, other - Feeding tube Rectal: other - sacral decubitus Genitourinary: other - Indwelling Waddell Musculoskeletal: no lower extremity edema Neurologic: other - Nonverbal Psychiatric: other Skin: other Lymphatic: other (Oneal Olmos MD) Procedures Critical Care Time Critical Care Time Critical care is mandated in this patient who presented with sepsis and respiratory distress. Patient require my urgent intervention to attenuate the risks of the metabolic collapse which may lead to cardiovascular collapse and . Critical care time is 35 minutes excluding any reportable procedure. Critical care time included evaluation, multiple reevaluation, looking at old charts, interpreting laboratory and diagnostic data, discussing case with patient and family and consultants, and charting. (Oneal Olmos MD) Central Line Central Line : Consent: Emergent Central Line Lumen: triple Maximal Sterile Barrier Tech: yes cap, yes mask, yes sterile gown, yes sterile gloves, yes large sterile sheet, yes hand hygiene, yes chlorhexidine prep Central Line Postion: femoral (R) US Guided Line?: No Complications: none Central Line Post Position: sutured, good blood return Attempts: One Patient Tolerated: Well Complications: None (Oneal Olmos MD) Medical Decision Making Diagnostic Impression: Primary Impression: Sepsis Qualified Codes: A41.9 - Sepsis, unspecified organism; R65.20 - Severe sepsis without septic shock; J96.01 - Acute respiratory failure with hypoxia Additional Impressions: HCAP (healthcare-associated pneumonia) UTI (urinary tract infection) Qualified Codes: N30.00 - Acute cystitis without hematuria Neck abscess ER Course Patient presents with severe sepsis. Heart rate better after IV fluid and Tylenol. He grew out ESBL E. coli in the blood and urine in the past. Sensitive to Zosyn. Patient will be admitted to the hospital. (Oneal Olmos MD) ER Course Patient was endorsed me by Dr. Olmos. Patient had diagnosis of sepsis. Chest x-ray did show some evidence of left-sided pneumonia. Laboratory testing was notable for elevated lactic acid level. Patient previous CT imaging showed some evidence of stones and patient's urinalysis also shows some evidence of hematuria so CT of the abdomen pelvis was ordered. Dr. Olmos had ordered Zosyn. Patient did not appear to have any evidence of any allergic reaction at this time. Patient's primary care physician Dr. Wallace was contacted and agreed to admit the patient. He additionally stated that the patient had some recent infection to the back of his neck. On direct exam of the posterior of the neck there appears to be some significant amount of purulent drainage from an abscess to the neck and scalp with large amount of purulent material drained. Patient given additional dosage of vancomycin. CT imaging of the neck was ordered to patient's abscess after discussion with general surgeon. Dr. Franks was contacted for surgical consult. Labs Test 06/27/20 05:15 06/27/20 05:50 White Blood Count 15.8 K/UL (4.8-10.8) Red Blood Count 4.78 M/UL (4.70-6.10) Hemoglobin 13.4 G/DL (14.2-18.0) Hematocrit 43.7 % (42.0-52.0) Mean Corpuscular Volume 91 FL (80-99) Mean Corpuscular Hemoglobin 28.0 PG (27.0-31.0) Mean Corpuscular Hemoglobin Concent 30.6 G/DL (32.0-36.0) Red Cell Distribution Width 15.0 % (11.6-14.8) Platelet Count 354 K/UL (150-450) Mean Platelet Volume 9.5 FL (6.5-10.1) Neutrophils (%) (Auto) % (45.0-75.0) Lymphocytes (%) (Auto) % (20.0-45.0) Monocytes (%) (Auto) % (1.0-10.0) Eosinophils (%) (Auto) % (0.0-3.0) Basophils (%) (Auto) % (0.0-2.0) Prothrombin Time 12.0 SEC (9.30-11.50) Prothromb Time International Ratio 1.1 (0.9-1.1) Activated Partial Thromboplast Time 24 SEC (23-33) Sodium Level 151 MMOL/L (136-145) Potassium Level 4.7 MMOL/L (3.5-5.1) Chloride Level 110 MMOL/L (98-107) Carbon Dioxide Level 25 MMOL/L (21-32) Anion Gap 16 mmol/L (5-15) Blood Urea Nitrogen 58 mg/dL (7-18) Creatinine 1.9 MG/DL (0.55-1.30) Estimat Glomerular Filtration Rate 37.9 mL/min (>60) Glucose Level 544 MG/DL (74-106) Lactic Acid Level 5.50 mmol/L (0.4-2.0) Calcium Level 9.9 MG/DL (8.5-10.1) Total Bilirubin 0.5 MG/DL (0.2-1.0) Aspartate Amino Transf (AST/SGOT) 23 U/L (15-37) Alanine Aminotransferase (ALT/SGPT) 52 U/L (12-78) Alkaline Phosphatase 90 U/L (46-116) Total Creatine Kinase 108 U/L (26-308) Creatine Kinase MB < 0.5 NG/ML (0.0-3.6) Creatine Kinase MB Relative Index 0.4 Troponin I 0.007 ng/mL (0.000-0.056) Total Protein 9.1 G/DL (6.4-8.2) Albumin 2.7 G/DL (3.4-5.0) Globulin 6.4 g/dL Albumin/Globulin Ratio 0.4 (1.0-2.7) Urine Color Yellow Urine Appearance Slightly cloudy Urine pH 6 (4.5-8.0) Urine Specific [place] 1.015 (1.005-1.035) Urine Protein 4+ (NEGATIVE) Urine Glucose (UA) 1+ (NEGATIVE) Urine Ketones 1+ (NEGATIVE) Urine Blood 4+ (NEGATIVE) Urine Nitrite Negative (NEGATIVE) Urine Bilirubin Negative (NEGATIVE) Urine Urobilinogen 4 MG/DL (0.0-1.0) Urine Leukocyte Esterase 2+ (NEGATIVE) Urine RBC 30-40 /HPF (0 - 0) Urine WBC 40-60 /HPF (0 - 0) Urine Squamous Epithelial Cells Few /LPF (NONE/OCC) Urine Bacteria Many /HPF (NONE) Urine Coarse Granular Casts 0-2 /LPF (NONE) (Jayden Clifton MD) EKG Diagnostic Results Troponin ordered: Yes Rate: tachycardiac Rhythm: NSR ST Segments: other - NSST changes (Oneal Olmos MD) Rhythm Strip Diag. Results EP Interpretation: yes Rate: 140 Rhythm: NSR, no PVC's (Oneal Olmos MD) Chest X-Ray Diagnostic Results Chest X-Ray Diagnostic Results : Chest X-Ray Ordered: Yes # of Views/Limited/Complete: 1 View Indication: Shortness of Breath EP Interpretation: Yes Interpretation: no effusion, no pneumothorax, other - Right lower lobe infiltrate, left retrocardiac infiltrate. Impression: Other - Infiltrates Electronically Signed by: Oneal Olmos MD (Oneal Olmos MD) Last Vital Signs Date Time Temp Pulse Resp B/P (MAP) Pulse Ox O2 Delivery O2 Flow Rate FiO2 06/27/20 04:58 95.5 150 20 104/62 (76) 92 Endotracheal Tube 15.0 Status: improved (Oneal Olmos MD) Status: unchanged (Jayden Clifton MD) Disposition: ADMITTED INPATIENT Condition: Critical Referrals: Liset Wallace MD (PCP) Oneal Olmos MD Jun 27, 2020 05:31 Jayden Clifton MD Jun 27, 2020 08:00
[2020-06-27 05:41] LABS: HEMATOCRIT 43.7 % (42.0-52.0); HEMOGLOBIN 13.4 G/DL (14.2-18.0); MEAN CORPUSCULAR VOLUME 91 FL (80-99); PLATELET COUNT 354 K/UL (150-450); RED BLOOD COUNT 4.78 M/UL (4.70-6.10); WHITE BLOOD COUNT 15.8 K/UL (4.8-10.8)
[2020-06-27 05:54] LABS: INR 1.1 (0.9-1.1)
[2020-06-27 05:56] LABS: APPEARANCE,URINE SLIGHTLY CLOUDY; BILIRUBIN, URINE NEGATIVE (NEGATIVE); GLUCOSE, URINE (UA) 1+ (NEGATIVE); KETONES,URINE 1+ (NEGATIVE); LEUKOCYTE ESTERASE ,URINE 2+ (NEGATIVE); NITRITE,URINE NEGATIVE (NEGATIVE); PH,URINE 6 (4.5-8.0); PROTEIN,URINE 4+ (NEGATIVE); UROBILINOGEN,URINE 4 MG/DL (0.0-1.0)
[2020-06-27 05:59] LABS: COLOR,URINE YELLOW
[2020-06-27] MEDS ORDERED: Piperacillin/Tazobactam 3.375 GM in NS 110 ML IVPB ONE (06:00)
[2020-06-27 06:02] LABS: ALANINE AMINOTRANSFERASE 52 U/L (12-78); ALBUMIN 2.7 G/DL (3.4-5.0); ALBUMIN/GLOBULIN RATIO 0.4 (1.0-2.7); ALKALINE PHOSPHATASE 90 U/L (46-116); ANION GAP 16 mmol/L (5-15); ASPARTATE AMINO TRANSFERASE 23 U/L (15-37); BILIRUBIN,TOTAL 0.5 MG/DL (0.2-1.0); BLOOD UREA NITROGEN 58 mg/dL (7-18); CALCIUM 9.9 MG/DL (8.5-10.1); CARBON DIOXIDE 25 MMOL/L (21-32); CHLORIDE 110 MMOL/L (98-107); CKMB < 0.5 NG/ML (0.0-3.6); CREATINE KINASE 108 U/L (26-308); CREATININE 1.9 MG/DL (0.55-1.30); POTASSIUM 4.7 MMOL/L (3.5-5.1); SODIUM 151 MMOL/L (136-145)
--- NOTE | 2020-06-27 06:04 | Emergency Room Report ---
Sepsis Event Note Evaluation Current Stage of Sepsis: Severe Sepsis Possible Source: Pulmonary Focused Exam Allergies: Coded Allergies: CEFTRIAXONE (Unverified Allergy, Unknown, 06/27/20) NO KNOWN DRUG ALLERGIES (Unverified Allergy, Unknown, 06/28/15) Date Exam Occurred: Jun 27, 2020 Time Exam Occurred: 06:04 Laboratory Studies Laboratory Tests Test 06/27/20 05:15 06/27/20 05:50 White Blood Count 15.8 K/UL (4.8-10.8) H Red Blood Count 4.78 M/UL (4.70-6.10) Hemoglobin 13.4 G/DL (14.2-18.0) L Hematocrit 43.7 % (42.0-52.0) Mean Corpuscular Volume 91 FL (80-99) Mean Corpuscular Hemoglobin 28.0 PG (27.0-31.0) Mean Corpuscular Hemoglobin Concent 30.6 G/DL (32.0-36.0) L Red Cell Distribution Width 15.0 % (11.6-14.8) H Platelet Count 354 K/UL (150-450) Mean Platelet Volume 9.5 FL (6.5-10.1) Neutrophils (%) (Auto) % (45.0-75.0) Lymphocytes (%) (Auto) % (20.0-45.0) Monocytes (%) (Auto) % (1.0-10.0) Eosinophils (%) (Auto) % (0.0-3.0) Basophils (%) (Auto) % (0.0-2.0) Prothrombin Time 12.0 SEC (9.30-11.50) H Prothromb Time International Ratio 1.1 (0.9-1.1) Activated Partial Thromboplast Time 24 SEC (23-33) Sodium Level Pending Potassium Level Pending Chloride Level Pending Carbon Dioxide Level Pending Blood Urea Nitrogen Pending Creatinine Pending Estimat Glomerular Filtration Rate Pending Glucose Level Pending Lactic Acid Level 5.50 mmol/L (0.4-2.0) H Calcium Level Pending Total Bilirubin Pending Aspartate Amino Transf (AST/SGOT) Pending Alanine Aminotransferase (ALT/SGPT) Pending Alkaline Phosphatase Pending Total Creatine Kinase Pending Creatine Kinase MB Pending Troponin I 0.007 ng/mL (0.000-0.056) Total Protein Pending Albumin Pending Globulin Pending Urine Color Yellow Urine Appearance Slightly cloudy Urine pH 6 (4.5-8.0) Urine Specific [place] 1.015 (1.005-1.035) Urine Protein 4+ (NEGATIVE) H Urine Glucose (UA) 1+ (NEGATIVE) H Urine Ketones 1+ (NEGATIVE) H Urine Blood 4+ (NEGATIVE) H Urine Nitrite Negative (NEGATIVE) Urine Bilirubin Negative (NEGATIVE) Urine Urobilinogen 4 MG/DL (0.0-1.0) H Urine Leukocyte Esterase 2+ (NEGATIVE) H Urine RBC Pending Urine WBC Pending Urine Squamous Epithelial Cells Pending Urine Bacteria Pending Vital Signs Last 24 Hour Vital Signs Date Time Temp Pulse Resp B/P (MAP) Pulse Ox O2 Delivery O2 Flow Rate FiO2 06/27/20 05:23 144 20 100 06/27/20 04:58 95.5 150 20 104/62 (76) 92 Endotracheal Tube 15.0 Respiratory Exam: Rhonchi Cardiovascular Exam: RRR Capillary Refill: Less Than 2 Seconds Peripheral Pulse: Strong Pulse Location: Radial Skin Exam: Normal Turgor Oneal Olmos MD Jun 27, 2020 06:04
--- NOTE | 2020-06-27 06:37 | NUR ---
Temp Axillary 98.5
[2020-06-27] MEDS ORDERED: Insulin Human Regular 100units/ml 3ml IV ONE (06:45)
--- NOTE | 2020-06-27 06:48 | NUR ---
ED Nurse Note: NovolinR 6 units verified with MANUEL Smith and administered.
--- NOTE | 2020-06-27 06:54 | Diagnostic Imaging Report ---
EXAM: XR Chest, 1 View CLINICAL HISTORY: SOB TECHNIQUE: Frontal view of the chest. COMPARISON: June 27, 2019 FINDINGS: Lungs: Left basilar airspace opacity concerning for pneumonia in the appropriate clinical setting. Pleural space: No pleural effusion. No pneumothorax. Heart: Unremarkable. No cardiomegaly. Tubes, lines and devices: Tracheostomy cannula in place. IMPRESSION: Left basilar airspace opacity concerning for pneumonia in the appropriate clinical setting.
--- NOTE | 2020-06-27 06:55 | NUR ---
HR 123, BP 96/64
--- NOTE | 2020-06-27 07:10 | NUR ---
Nurses Note: Report from maintenance technician 3rd shift. Pt with Dx of sepsis and hcap. waiting for admition orders. Alert not oriented unable to talk or move, pupil reactive to the light. Does not respond to pain. Pt conecte to Vent By Tracheotomy, VT st; TV 500, O2 100%, Peep 5, Flow 40,Rate 12 , pt tolerating with a ST of 100% by monitor. V/S stable under his condition V/S documented in INtervations. Peg tube patent at the irrigation. Central line in Rt femoral with NSS running with no problem. Waddell cateter paten Urine Yellow with trace of sediment. Pending CT scan. Will continue monitoring for any change in condition.
[2020-06-27 07:25] VITALS: BP 99/69
[2020-06-27] MEDS ORDERED: Vancomycin 1.5gm/300ml Premix 300 ML IVPB ONE (08:00)
--- NOTE | 2020-06-27 08:00 | NUR ---
Nurses note: Pt present a infected abscess on the bakc of his neck, supurating pus and blood, provider evaluated and give order for CT scan
--- NOTE | 2020-06-27 08:11 | NUR ---
ED Nurse Note: DR Clifton is aware of creatinine of 1.9 and orders to continue for CT neck with contrast. Mary Ellen rushing RN notified.
[2020-06-27] MEDS ORDERED: Omnipaque-300 100ml vial INJ ONE (08:15)
--- NOTE | 2020-06-27 08:20 | Diagnostic Imaging Report ---
EXAM: CT Abdomen and Pelvis Without Intravenous Contrast CLINICAL HISTORY: STONES TECHNIQUE: Axial computed tomography images of the abdomen and pelvis without intravenous contrast. Sagittal and coronal reformatted images were created and reviewed. CTDI is 10.5 mGy and DLP is 646.8 mGy-cm. One or more of the following dose reduction techniques were used: automated exposure control, adjustment of the mA and/or kV according to patient size, use of iterative reconstruction technique. COMPARISON: CT abdomen and pelvis dated 06/26/19. FINDINGS: Lung bases: Left lower lobe consolidation with air bronchograms, concerning for pneumonia. Hazy opacities in the left upper lobe/lingula could represent additional areas of pneumonitis. Mild dependent atelectasis in the right lung base. Pleural space: Trace bilateral pleural effusions. ABDOMEN: Liver: Unremarkable. Gallbladder and bile ducts: Unremarkable. No calcified stones. No ductal dilation. Pancreas: Unremarkable. No ductal dilation. Spleen: Unremarkable. No splenomegaly. Adrenals: Unremarkable. No mass. Kidneys and ureters: Left-sided nonobstructive nephrolithiasis, with at least three separate 2 mm stones. No radiodense ureteral stones identified. No hydronephrosis or hydroureter. Mild bilateral pelvic stranding. Stomach and bowel: Luminal air-fluid levels throughout small bowel and colon without wall thickening, which may suggest mild enterocolitis and/or diarrheal disease. No evidence of bowel obstruction. PELVIS: Appendix: The appendix appears normal. Bladder: 2 mm stone lying dependently in the urinary bladder lumen. Waddell catheter in place, with expected positioning. Reproductive: The prostate gland and seminal vesicles have an unremarkable CT appearance. ABDOMEN and PELVIS: Intraperitoneal space: Unremarkable. No free air. No significant fluid collection. Bones/joints: Incidental note of a 2.6 x 2.5 x 2.4 cm sclerotic lesion along the right side of the T12 vertebral body, a 2.6 x 2.3 x 2.1 cm sclerotic lesion in the left acetabulum, and a 1.3 cm round sclerotic lesion in the intertrochanteric region of the right femur. No evidence of pathologic fracture. No dislocation. Soft tissues: Unremarkable. Vasculature: Unremarkable. No abdominal aortic aneurysm. Lymph nodes: Unremarkable. No enlarged lymph nodes. Tubes, lines and devices: Gastrostomy tube with expected positioning. Right femoral central venous catheter with the tip in the left external iliac vein. IMPRESSION: 1. Left lower lobe consolidation with air bronchograms, concerning for pneumonia. Hazy opacities in the left upper lobe/lingula could represent additional areas of pneumonitis. 2. Trace bilateral pleural effusions. 3. Mild dependent atelectasis in the right lung base. 4. Left-sided nonobstructive nephrolithiasis, with at least three separate 2 mm stones. No radiodense ureteral stones identified. No hydronephrosis or hydroureter. Mild bilateral pelvic stranding. 5. 2 mm stone lying dependently in the urinary bladder lumen. 6. Luminal air-fluid levels throughout small bowel and colon without wall thickening, which may suggest mild enterocolitis and/or diarrheal disease. No evidence of bowel obstruction. 7. New sclerotic osseous lesions concerning for metastases, including a 2.6 cm sclerotic lesion in the T12 vertebral body, a 2.6 cm sclerotic lesion in the left acetabulum, and a 1.3 cm sclerotic lesion in the intertrochanteric right femur. No evidence of pathologic fracture. Query for any history of primary malignancy (e.g. prostate cancer or other malignancies). If there is continued concern this can be further evaluated with a nuclear medicine bone scan.
[2020-06-27 09:19] VITALS: BP 88/61
--- NOTE | 2020-06-27 09:30 | Diagnostic Imaging Report ---
EXAM: CT Neck With Intravenous Contrast CLINICAL HISTORY: ABSCESS TECHNIQUE: Axial computed tomography images of the neck with intravenous contrast. Sagittal and coronal reformatted images were created and reviewed. CTDI is 14.6 mGy and DLP is 494.2 mGy-cm. One or more of the following dose reduction techniques were used: automated exposure control, adjustment of the mA and/or kV according to patient size, use of iterative reconstruction technique. COMPARISON: No relevant prior studies available. FINDINGS: Oropharynx: Unremarkable. No significant tonsillar enlargement. No peritonsillar abscess. Hypopharynx: Unremarkable. Larynx: Unremarkable. Normal epiglottis. Trachea: Unremarkable. Retropharyngeal space: Unremarkable. Submandibular/parotid glands: Unremarkable. Glands are normal in size. Thyroid: Unremarkable. No enlarged or calcified nodules. Bones/joints: No acute fracture. Soft tissues: 3.8 x 2.6 x 2.4 cm (TRV x CC x AP) subcutaneous fluid collection in the midline posterior neck soft tissues at the level of C4, highly concerning for abscess. Overlying soft tissue stranding and skin thickening. Vasculature: Unremarkable as visualized. Lymph nodes: Unremarkable. No lymphadenopathy. Sinuses: Partial visualization of left maxillary sinus opacification, concerning for sinusitis. Lung apices: Partial visualization of lobar consolidation throughout the left lower lobe and patchy airspace opacities in the left upper lobe, concerning for pneumonia. Tubes, lines and devices: Tracheostomy tube in place, with expected positioning. IMPRESSION: 1. 3.8 x 2.6 x 2.4 cm (TRV x CC x AP) subcutaneous fluid collection in the midline posterior neck soft tissues at the level of C4, highly concerning for abscess. Overlying soft tissue stranding and skin thickening. 2. Partial visualization of lobar consolidation throughout the left lower lobe and patchy airspace opacities in the left upper lobe, concerning for pneumonia. 3. Partial visualization of left maxillary sinus opacification, concerning for sinusitis. 4. Tracheostomy tube in place, with expected positioning.
[2020-06-27 10:37] VITALS: BP 105/71
--- NOTE | 2020-06-27 10:52 | NUR ---
Nurses Note: Report given to Antonette JACKSON
--- NOTE | 2020-06-27 11:30 | NUR ---
NURSE NOTES: received patient report from chivo rn from ER. patient came in via gurney with the RT. noted to be on vent at prescribed rate, Portex 8. with gtube, clamp, not leaking, byrnes in draining, per ECLECT[facility] DOCTOR, patient came with a byrnes from SNF. under the care of dr marc. skin assessment done, dr boogie came and assessed pressure injury. no new order recieved. wound care per order. VS taken an drecorded, afebrile.SR to ST on the monitor. will call dr santa HALL for orders.
--- NOTE | 2020-06-27 11:42 | Consultation ---
History of Present Illness General Date patient seen: Jun 27, 2020 Reason for Hospitalization: Dyspnea/Respdistress Present Illness HPI 49-year-old unfortunate male who is in a vegetative state. He has a tracheostomy and a feeding tube and an chronic indwelling Waddell. Presents with chief complaint of fever, hypoxia, rest or distress. He was noted to be like this tonight. Unable to get any other history from him. He had negative Covid test in May. He finished his rounds of Covid vaccine already. He has been admitted here multiple times for sepsis. History is limited because of patient's condition. History is through EMS and correction note. noted to have neck abscess. surgery called to evaluate and assist with care. Allergies: Coded Allergies: CEFTRIAXONE (Unverified Allergy, Unknown, 06/27/20) NO KNOWN DRUG ALLERGIES (Unverified Allergy, Unknown, 06/28/15) COVID-19 Screening Contact w/high risk pt: No Experienced COVID-19 symptoms?: No Medication History Scheduled Bacitracin Zinc* (Bacitracin Zinc*), 1 APPLIC TOPIC DAILY, (Reported) Cranberry Extract (Cranberry Juice Powder), 425 MG GT DAILY, (Reported) Ergocalciferol (Vitamin D2)* (Vitamin D*), 50,000 UNIT ORAL ONCE A WEEK, (Reported) Esomeprazole Magnesium (Nexium), 40 MG GT BID, (Reported) Heparin Sod (Porcine) (Heparin Sodium*), 5,000 UNITS SUBQ EVERY 12 HOURS, (Reported) Insulin Glargine (Lantus), 24 UNITS SUBQ BEDTIME, (Reported) Ipratropium/Albuterol Sulfate (DuoNeb 0.5-3(2.5)mg/3ml), 3 ML HHN Q4HR, (Reported) Levetiracetam (Keppra), 5 ML GT TWICE A DAY, (Reported) Magnesium Hydroxide* (Milk Of Magnesia*), 30 ML GT DAILY, (Reported) Magnesium Oxide (Magnesium Oxide), 400 MG GT DAILY, (Reported) Metformin Hcl* (Metformin Hcl*), 1,000 MG GT BID, (Reported) Multivit-Min/Iron Fum/Folic AC (Daevm-Lmlbhva-Vireqilb Tablet), 1 EACH GT DAILY, (Reported) Zinc Oxide (Skin Protectant), 113 GM TP BID, (Reported) Scheduled PRN Acetaminophen 160MG/5ML* (Acetaminophen*), 20.3 ML GT Q4HR PRN for PAIN 1-3 OR TEMP > 100.4, (Reported) Miscellaneous Medications Insulin Lispro (Humalog), 0 SUBQ, (Reported) Lactulose (Lactulose*), 30 ML GT, (Reported) Patient History Limited by: medical condition History Provided By: Medical Record, PMD Healthcare decision maker Resuscitation status Advanced Directive on File Past Medical/Surgical History Past Medical/Surgical History: (1) Decubitus skin ulcer (2) Electrolyte imbalance (3) Hypokalemia (4) Chronic respiratory failure (5) Severe anemia (6) Acute pancreatitis (7) UTI (urinary tract infection) (8) Neck abscess (9) HCAP (healthcare-associated pneumonia) (10) Iron deficiency anemia (11) Ileus (12) Esophagitis (13) Gastric ulcer (14) Acute blood loss anemia (15) Hematuria (16) ATN (acute tubular necrosis) (17) Wound of sacral region (18) Chronic complete quadriplegia (19) COPD (chronic obstructive pulmonary disease) (20) Cholecystitis (21) Diabetes mellitus, type II (22) Seizure disorder (23) Cerebral vascular disease (24) Nosocomial pneumonia (25) Intractable diarrhea (26) Acute and chronic respiratory failure (27) Chronic vegetative state (28) Ventilator dependent (29) Status post tracheostomy (30) Sepsis (31) Feeding by G-tube Review of Systems Review of Symptoms -Y-f-q-e-r-a-l- -R-O-S-:- -n-o- -p-y-w-g-h-t- -l-o-s-s- -o-r- -f-e-v-e-r- -G-m-o-a-f-l-m-u-e-i-c-a-l- -R-O-S-:- -n-o- -d-j-m-x-x-i-s-i-o-n- -o-r- -m-o-o-d- -p-g-g-n-g-e-s-,- -n-o- -p-v-h-o-r-y- -l-o-s-s- -K-l-z-r-g-c-l-m-i-c- -R-O-S-:- -n-o- -w-d-x-u-a-l- -o-w-r-n-g-e-s- -o-r- -e-y-e- -b-i-p-g-j-w-t-i-o-n- -E-N-T- -R-O-S-:- -n-o- -n-a-s-a-l- -r-x-r-v-s-o-t-i-o-n-,- -v-a-s-r-i-n-g- -l-o-s-s-,- -r-g-e-r-n-n-e-s-s- -B-c-z-e-r-g-y- -a-n-d- -V-s-z-p-r-l-l-o-g-y- -R-O-S-:- -n-o- -r-w-q-e-r-g-i-c- -l-w-v-p-t-o-m-s- -o-r- -g-r-i-n-m-g-r-i-a- -N-o-l-e-h-b-w-p-s-i-c-a-l- -a-n-d- -H-q-u-f-b-g-t-i-c- -R-O-S-:- -n-o- -q-d-o-l-l-e-n- -l-c-t-n-d-s-,- -t-b-n-s-u-a-l- -f-l-s-e-d-i-n-g- -o-r- -h-f-n-i-s-i-n-g- -Q-h-a-f-e-c-i-n-e- -R-O-S-:- -n-o- -k-l-q-y-u-r-i-a-,- -q-s-i-p-y-e-p-s-i-a-,- -y-f-y-g-h-t- -s-l-w-n-g-e-s-,- -j-b-u-w-u-n-a-t-u-r-e- -i-t-o-o-e-i-r-a-n-c-e- -J-v-p-k-d-x-a-t-o-r-y- -R-O-S-:- -n-o- -c-o-u-g-h-,- -v-r-a-s-z-z-e-s-s- -o-f- -u-v-o-a-t-h-,- -o-r- -u-t-u-e-z-i-n-g- -Q-d-l-j-n-f-h-x-z-c-u-l-a-r- -R-O-S-:- -n-o- -c-h-e-s-t- -p-a-i-n- -o-r- -n-m-k-p-n-e-a- -o-n- -h-c-l-r-t-i-o-n- -Q-h-o-y-y-s-z-l-i-r-g-a-i-n-a-l- -R-O-S-:- -d-e--n-i-e-s- -d-t-j-e-v-c-n-a-l- -p-a-i-n-,- -l-w-f-g-h-t- -r-e-d- -b-l-o-o-d- -i-n- -s-t-o-o-l-.- -Y-b-w-b-s-x-w-e-a-r-p-f-t-a-l- -R-O-S-:- -n-o- -x-g-p-l-g-i-a-s- -o-r- -y-v-r-e-s-l-l-g-i-a-s- -B-o-z-x-f-x-h-t-m-c-a-l- -R-O-S-:- -n-o- -T-I-A- -o-r- -x-e-z-o-k-e- -l-r-r-p-t-o-m-s- -M-l-g-n-m-i-u-v-d-g-i-c-a-l- -R-O-S-:- -n-o- -n-e-w- -o-r- -f-r-s-n-g--i-n-g- -s-k-i-n- -c-a-z-i-o-n-s-,- -m-t-p-h-e-s- -o-r- -x-x-q-r-i-t-i-s- limited given medical condition Physical Exam Physical Exam Vitals with tachycardia and hypoxia Sp02 EP Interpretation: abnormal General Appearance: moderate distress, lethargic, Chronically Ill Eyes: bilateral eye PERRL ENT: dry mucus membranes Neck: tracheotomy Respiratory: respiratory distress, decreased breath sounds, accessory muscle use, rhonchi Cardiovascular #1: tachycardia Gastrointestinal: distended, other - Feeding tube Rectal: other - sacral decubitus Genitourinary: other - Indwelling Waddell Musculoskeletal: no lower extremity edema Neurologic: other - Nonverbal Psychiatric: other Skin: other Lymphatic: other Last 24 Hour Vital Signs Date Time Temp Pulse Resp B/P (MAP) Pulse Ox O2 Delivery O2 Flow Rate FiO2 06/27/20 10:37 110 17 105/71 99 06/27/20 09:19 110 17 88/61 99 Trach Collar 15.0 40 06/27/20 07:27 121 17 Endotracheal Tube 15.0 100 06/27/20 07:25 98.5 17 99/69 100 Endotracheal Tube 15.0 100 06/27/20 05:57 98.5 06/27/20 05:23 144 20 100 06/27/20 04:58 95.5 150 20 104/62 (76) 92 Endotracheal Tube 15.0 Laboratory Tests Test 06/27/20 05:15 06/27/20 05:50 06/27/20 08:00 White Blood Count 15.8 K/UL (4.8-10.8) H Red Blood Count 4.78 M/UL (4.70-6.10) Hemoglobin 13.4 G/DL (14.2-18.0) L Hematocrit 43.7 % (42.0-52.0) Mean Corpuscular Volume 91 FL (80-99) Mean Corpuscular Hemoglobin 28.0 PG (27.0-31.0) Mean Corpuscular Hemoglobin Concent 30.6 G/DL (32.0-36.0) L Red Cell Distribution Width 15.0 % (11.6-14.8) H Platelet Count 354 K/UL (150-450) Mean Platelet Volume 9.5 FL (6.5-10.1) Neutrophils (%) (Auto) % (45.0-75.0) Lymphocytes (%) (Auto) % (20.0-45.0) Monocytes (%) (Auto) % (1.0-10.0) Eosinophils (%) (Auto) % (0.0-3.0) Basophils (%) (Auto) % (0.0-2.0) Prothrombin Time 12.0 SEC (9.30-11.50) H Prothromb Time International Ratio 1.1 (0.9-1.1) Activated Partial Thromboplast Time 24 SEC (23-33) Sodium Level 151 MMOL/L (136-145) H Potassium Level 4.7 MMOL/L (3.5-5.1) Chloride Level 110 MMOL/L (98-107) H Carbon Dioxide Level 25 MMOL/L (21-32) Anion Gap 16 mmol/L (5-15) H Blood Urea Nitrogen 58 mg/dL (7-18) H Creatinine 1.9 MG/DL (0.55-1.30) H Estimat Glomerular Filtration Rate 37.9 mL/min (>60) Glucose Level 544 MG/DL (74-106) *H Lactic Acid Level 5.50 mmol/L (0.4-2.0) H 3.70 mmol/L (0.66-2.22) H Calcium Level 9.9 MG/DL (8.5-10.1) Total Bilirubin 0.5 MG/DL (0.2-1.0) Aspartate Amino Transf (AST/SGOT) 23 U/L (15-37) Alanine Aminotransferase (ALT/SGPT) 52 U/L (12-78) Alkaline Phosphatase 90 U/L (46-116) Total Creatine Kinase 108 U/L (26-308) Creatine Kinase MB < 0.5 NG/ML (0.0-3.6) Creatine Kinase MB Relative Index 0.4 Troponin I 0.007 ng/mL (0.000-0.056) Total Protein 9.1 G/DL (6.4-8.2) H Albumin 2.7 G/DL (3.4-5.0) L Globulin 6.4 g/dL Albumin/Globulin Ratio 0.4 (1.0-2.7) L Urine Color Yellow Urine Appearance Slightly cloudy Urine pH 6 (4.5-8.0) Urine Specific [place] 1.015 (1.005-1.035) Urine Protein 4+ (NEGATIVE) H Urine Glucose (UA) 1+ (NEGATIVE) H Urine Ketones 1+ (NEGATIVE) H Urine Blood 4+ (NEGATIVE) H Urine Nitrite Negative (NEGATIVE) Urine Bilirubin Negative (NEGATIVE) Urine Urobilinogen 4 MG/DL (0.0-1.0) H Urine Leukocyte Esterase 2+ (NEGATIVE) H Urine RBC 30-40 /HPF (0 - 0) H Urine WBC 40-60 /HPF (0 - 0) H Urine Squamous Epithelial Cells Few /LPF (NONE/OCC) Urine Bacteria Many /HPF (NONE) H Urine Coarse Granular Casts 0-2 /LPF (NONE) H Microbiology Date/Time Source Procedure Growth Status 06/27/20 05:08 Nasal Nares - Final Complete 06/27/20 05:08 Nasal Nares - Final Complete Height (Feet): 5 Height (Inches): 8.00 Weight (Pounds): 180 Assessment/Plan Problem List: (1) UTI (urinary tract infection) ICD Codes: N39.0 - Urinary tract infection, site not specified SNOMED: 24399479, 237107599 Qualifiers: Qualified Codes: N30.00 - Acute cystitis without hematuria (2) Chronic respiratory failure ICD Codes: J96.10 - Chronic respiratory failure, unspecified whether with hypoxia or hypercapnia SNOMED: 07809983 (3) Acute pancreatitis ICD Codes: K85.90 - Acute pancreatitis without necrosis or infection, unspecified SNOMED: 426884825 (4) Hypokalemia ICD Codes: E87.6 - Hypokalemia SNOMED: 94304912 (5) Decubitus skin ulcer Assessment & Plan: Pt presented on admission with multiple pressure injuries and Moisture Associated Skin damage Buttocks and Bilateral groin. Both earlobes including medial canals noted to have scaly red plaques and and small lesions. Full thickness stage 3 pressure injury posterior neck under collar of trach. Base of wound has 25% slough,75% beefy red .Small amt serosanguineous exudate noted. Borders are macerated. Surrounding skin is clean and dry. Moisture Associated Skin Damage noted to bilateral groin areas,Buttocks and bilateral ischium. Skin is grossly erythematous and denuded with scattered satellite lesions. Full thickness stage 3 sacral pressure injury. Base of wound is 25% necrotic ,30% slough ,otherwise beefy red with small amt serous exudate.Borders are macerated.(L)(L)8.5cm x (W)10cm. Periwound MASD. Full Thickness stage 3 pressure injury R trochanter. Base of wound 80% beefy red ,20% slough. Small amt serous exudate. Borders are macerated(L)3cm x (W)3.2cm. No odor noted.Periwound MASD. Full Thickness stage 3 pressure injury R ischium. Base of wound is 25% necrotic, beefy red with scattered slough. Borders are macerated. Small amt serous exudate noted. No odor noted.(L)5.3cm x (W)3.9cm. Periwound MASD. Full thickness stage 3 pressure injury L Ischium. Base of wound is beefy red and moist. Borders are macerated. Small amt serous exudate noted.(L)4cm x (W)3.2cm x (D)0.2cm. Both heels are pink and easily blanchable. Bilat foot drop noted. Tx.Plan: Cleanse wounds on Buttocks, sacrum, ishium, trochanter with Saline. Apply Therahoney to wounds. Apply Triad Paste periwound to cover erythematous skin. Cover with Optifoam drsgs Daily and prn. Apply Phytoplex Lotion to R and L ears daily and prn. Apply Cavilon Skin Barrier to Both heels. Cover each heel with Optifoam drsg. Change every 7 days and prn. APM/MAICOL Mattress overlay. Reposition at least every 2hours or as tolerated. Off-load heels with pillow. Place pillow between knees. ICD Codes: L89.90 - Pressure ulcer of unspecified site, unspecified stage SNOMED: 344564661 (6) Electrolyte imbalance ICD Codes: E87.8 - Other disorders of electrolyte and fluid balance, not elsewhere classified SNOMED: 100491784 (7) Neck abscess Assessment & Plan: 49M spontaneously draining midline to left neck abscess. Patient was identified admission with CT scan to have an abscess in the left neck. On evaluation at bedside there is a 3 cm x 1 cm wide by few centimeter deep fluid collection cavity that has been drained since now with just serosanguineous fluid. Packing dressings applied. Very unfortunate. Will monitor until healing. Thank you Hernández participate patient's care Oropharynx: Unremarkable. No significant tonsillar enlargement. No peritonsillar abscess. Hypopharynx: Unremarkable. Larynx: Unremarkable. Normal epiglottis. Trachea: Unremarkable. Retropharyngeal space: Unremarkable. Submandibular/parotid glands: Unremarkable. Glands are normal in size. Thyroid: Unremarkable. No enlarged or calcified nodules. Bones/joints: No acute fracture. Soft tissues: 3.8 x 2.6 x 2.4 cm (TRV x CC x AP) subcutaneous fluid collection in the midline posterior neck soft tissues at the level of C4, highly concerning for abscess. Overlying soft tissue stranding and skin thickening. Vasculature: Unremarkable as visualized. Lymph nodes: Unremarkable. No lymphadenopathy. Sinuses: Partial visualization of left maxillary sinus opacification, concerning for sinusitis. Lung apices: Partial visualization of lobar consolidation throughout the left lower lobe and patchy airspace opacities in the left upper lobe, concerning for pneumonia. Tubes, lines and devices: Tracheostomy tube in place, with expected positioning. IMPRESSION: 1. 3.8 x 2.6 x 2.4 cm (TRV x CC x AP) subcutaneous fluid collection in the midline posterior neck soft tissues at the level of C4, highly concerning for abscess. Overlying soft tissue stranding and skin thickening. 2. Partial visualization of lobar consolidation throughout the left lower lobe and patchy airspace opacities in the left upper lobe, concerning for pneumonia. 3. Partial visualization of left maxillary sinus opacification, concerning for sinusitis. 4. Tracheostomy tube in place, with expected positioning. ICD Codes: L02.11 - Cutaneous abscess of neck SNOMED: 1665574 (8) HCAP (healthcare-associated pneumonia) ICD Codes: J18.9 - Pneumonia, unspecified organism SNOMED: 319644916, 224425362 (9) Severe anemia ICD Codes: D64.9 - Anemia, unspecified SNOMED: 055073741 (10) Iron deficiency anemia ICD Codes: D50.9 - Iron deficiency anemia, unspecified SNOMED: 00124092 (11) Ileus ICD Codes: K56.7 - Ileus, unspecified SNOMED: 508104061 (12) Esophagitis ICD Codes: K20.9 - Esophagitis, unspecified SNOMED: 69564430 (13) Gastric ulcer ICD Codes: K25.9 - Gastric ulcer, unspecified as acute or chronic, without hemorrhage or perforation SNOMED: 408233221 (14) Acute blood loss anemia ICD Codes: D62 - Acute posthemorrhagic anemia SNOMED: 209537739 (15) Hematuria ICD Codes: R31.9 - Hematuria SNOMED: 89111029 (16) ATN (acute tubular necrosis) ICD Codes: N17.0 - Acute kidney failure with tubular necrosis SNOMED: 22370430 (17) Wound of sacral region ICD Codes: S31.000A - Wound of sacral region SNOMED: 610302813 (18) Chronic complete quadriplegia ICD Codes: G82.50 - Chronic complete quadriplegia SNOMED: 46118971 (19) COPD (chronic obstructive pulmonary disease) ICD Codes: J44.9 - Chronic obstructive pulmonary disease, unspecified SNOMED: 33449326 (20) Cholecystitis ICD Codes: K81.9 - Cholecystitis, unspecified SNOMED: 68615699 (21) Diabetes mellitus, type II ICD Codes: E11.9 - Type 2 diabetes mellitus without complications SNOMED: 34630508 (22) Seizure disorder ICD Codes: G40.909 - Epilepsy, unspecified, not intractable, without status epilepticus SNOMED: 773421344 (23) Cerebral vascular disease ICD Codes: I67.9 - Cerebrovascular disease, unspecified SNOMED: 08266581 (24) Nosocomial pneumonia ICD Codes: J18.9 - Pneumonia, unspecified organism; Y95 - Nosocomial condition SNOMED: 057999053 (25) Intractable diarrhea ICD Codes: R19.7 - Diarrhea, unspecified SNOMED: 805791531 (26) Acute and chronic respiratory failure ICD Codes: J96.20 - Acute and chronic respiratory failure SNOMED: 22519460 (27) Chronic vegetative state ICD Codes: R40.3 - Chronic vegetative state SNOMED: 43347268 (28) Ventilator dependent ICD Codes: Z99.11 - Dependence on respirator [ventilator] status SNOMED: 798967900 (29) Status post tracheostomy ICD Codes: Z93.0 - Tracheostomy status SNOMED: 91943497 (30) Sepsis ICD Codes: A41.9 - Sepsis SNOMED: 39451017 Qualifiers: Qualified Codes: A41.9 - Sepsis, unspecified organism; R65.20 - Severe s epsis without septic shock; J96.01 - Acute respiratory failure with hypoxia (31) Feeding by G-tube ICD Codes: Z93.1 - Gastrostomy status SNOMED: 824398958, 187667575 Steve Franks Jun 27, 2020 11:42
[2020-06-27 11:44] VITALS: BP 97/64
--- NOTE | 2020-06-27 13:53 | NUR ---
NURSE NOTES: left a message to dr marc for admission order. awaiting callback and new order.
--- NOTE | 2020-06-27 15:05 | Consultation ---
Consult Note Consult Note I am asked to evaluate the patient at the request of Dr. Wallace for renal failure and fluid and electrolyte management Chief Complaint: Dyspnea/Respdistress This is a 49-year-old unfortunate male who is in a vegetative state. He has a tracheostomy and a feeding tube and an chronic indwelling Waddell. Presents with chief complaint of fever, hypoxia, rest or distress. He was noted to be like this tonight. Unable to get any other history from him. He had negative Covid test in May. He finished his rounds of Covid vaccine already. He has been admitted here multiple times for sepsis. History is limited because of patient's condition. History is through EMS and fdc note. 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 COVID-19 Screening: Negative COVID-19 COVID-19 Testing Source: [facility] Past Medical History: see triage record, old chart reviewed Past Surgical History: other Pertinent Family History: none Social History: Denies: smoking Immunizations: other Hx Hypertension: Yes Hx Asthma: Yes Hx COPD: Yes Hx Diabetes: Yes Hx Gastrointestinal Problems: Yes - dysphagia Hx Neurological Problems: Yes - Persistent vegetative state Hx Cerebrovascular Accident: Yes Hx Seizures: Yes Hx Epilepsy: Yes Hx Paralysis: Yes Hx Memory Loss: Yes Hx Concentration Difficulty: Yes Hx Speech Problem: Yes - tracheostomy Hx Aphasia: Yes Hx Dysphasia: Yes Hx Weakness: Yes Vital Signs Date Time Temp Pulse Resp B/P (MAP) Pulse Ox O2 Delivery O2 Flow Rate FiO2 06/27/20 04:58 95.5 150 20 104/62 (76) 92 Endotracheal Tube 15.0 Vitals with tachycardia and hypoxia Physical Exam Gen: NAD HEENT: NCAT, trach Pulm: BL chest rise on vent Abd: Soft, NTND, obese, PEG Ext: No c/c/e Skin: No visible rashes Neuro: Not interactive Lines: Waddell, R fem CVC Last 24 Hour Vital Signs Date Time Temp Pulse Resp B/P (MAP) Pulse Ox O2 Delivery O2 Flow Rate FiO2 06/28/20 05:15 86 14 40 06/28/20 04:00 40 06/28/20 04:00 98.6 89 14 96/56 (69) 98 06/28/20 04:00 Mechanical Ventilator 06/28/20 04:00 88 06/28/20 03:20 85 13 40 06/28/20 00:00 98.8 94 15 98/55 (69) 99 06/28/20 00:00 Mechanical Ventilator 06/28/20 00:00 94 06/27/20 23:10 96 17 40 06/27/20 21:15 75 14 40 06/27/20 20:00 106 06/27/20 20:00 99.1 109 19 116/95 (102) 99 109 06/27/20 20:00 40 06/27/20 20:00 Mechanical Ventilator 06/27/20 19:20 109 13 40 06/27/20 16:38 99.1 06/27/20 16:30 99.1 06/27/20 16:25 125 06/27/20 16:00 Mechanical Ventilator 06/27/20 16:00 101.1 126 23 96/59 (71) 96 126 06/27/20 16:00 40 06/27/20 15:00 120 19 40 06/27/20 12:24 Mechanical Ventilator 06/27/20 11:50 113 06/27/20 11:44 97.9 114 12 97/64 (75) 99 114 06/27/20 11:41 121 24 100 Mechanical Ventilator 40 06/27/20 11:37 121 24 40 06/27/20 11:30 98.0 104 18 100/60 97 Mechanical Ventilator 104 06/27/20 10:37 110 17 105/71 99 Intake and Output 06/27/20 06/28/20 18:59 06:59 Intake Total 285.0 ml 1250 ml Output Total 1200 ml 800 ml Balance -915.0 ml 450 ml Intake Free Water 30 ml 50 ml IV Total 255.0 ml 1200 ml Output Urine Total 1200 ml 800 ml . Assessment/Plan Imp: Acute renal failure Dehydration Hypernatremia Sepsis, pneumonia, UTI Neck abscess Hyperglycemia Sugg: Hydrate with half-normal saline Monitor renal parameters Midodrine Albumin bolus Monitor renal parameters and electrolytes Avoid nephrotoxic's Per orders Ricky Green MD Jun 27, 2020 15:05
[2020-06-27 16:00] VITALS: BP 96/59
[2020-06-27] MEDS: Midodrine 10mg tab ORAL SCH ×2 (16:01→17:18)
[2020-06-27] MEDS: Piperacillin/Tazobactam 3.375 GM in NS 110 ML IVPB SCH ×2 (16:03→23:40)
[2020-06-27] MEDS: NovoLOG Insulin Flexpen SUBQ SCH (17:18)
--- NOTE | 2020-06-27 17:50 | NUR ---
NURSE NOTES: dr garcia made aware of patients blood glucose of 406 and that patient is on mod sliding scale. dr garcia ordered 34 unit of lantus in addition to sliding scale. will continue to monitor.
--- NOTE | 2020-06-27 19:00 | NUR ---
NURSE NOTES: Received patient from MANUEL Whitman. patient is obtunded. sinus rhythm on the monitor. trach to vent AC 12 TV 500 FiO2 40% PEEP 5. Patient currently NPO. byrnes in place and draining well to gravity. RIGHT femoral TLC in place, dressing clean dry and intact. bed to lowest position and locked. call light within easy reach. side rails up x2. will continue plan of care.
--- NOTE | 2020-06-27 19:30 | NUR ---
NURSE NOTES: noted BP 85/56. albumin 500 was given by AM nurse at change of shift
--- NOTE | 2020-06-27 19:35 | NUR ---
NURSE NOTES: Dr. Solares made aware of BP 85/56. ordered 500ml bolus of NS and add Dr. Majano for consult. will carry out orders.
--- NOTE | 2020-06-27 19:38 | NUR ---
NURSE HAND-OFF REPORT: Important Events on Shift:albumin given for low BP Patient Status: full code Diet: npo Pending Orders: [] Pending Results/Labs:[] Pending MD notification:[] Latest Vital Signs: Temperature 99.1 , Pulse 125 , B/P 96 /59 , Respiratory Rate 23 , O2 SAT 96 , Mechanical Ventilator, O2 Flow Rate 15.0 . Vital Sign Comment: stable EKG Rhythm: Sinus Tachycardia Rhythm change?: N MD Notified?: - MD Response: Latest Fields Fall Score: 70 Fall Risk: High Risk Safety Measures: Call light Within Reach, Bed Alarm Zone 2, Side Rails Side Rails x2, Bed position Low and Locked. Fall Precautions: Yellow Socks Report given to janki fulton.
[2020-06-27 20:00] VITALS: BP 116/95
[2020-06-27] MEDS ORDERED: Pantoprazole Inj IVP SCH (20:00)
[2020-06-27] MEDS ORDERED: Acetaminophen 650mg/20.3ml GT PRN (20:00)
[2020-06-27] MEDS: Pantoprazole Inj IVP SCH (20:31)
[2020-06-27] MEDS: Heparin 5000 units/ml inj SUBQ SCH (20:33)
[2020-06-27] MEDS ORDERED: Levemir Flexpen SUBQ SCH (21:00)
--- NOTE | 2020-06-27 21:00 | NUR ---
NURSE NOTES: albumin and NS 500 bolus complete. BP 91/58
[2020-06-28] VITALS: BP 98/55
[2020-06-28] MEDS: NovoLOG Insulin Flexpen SUBQ SCH ×4 (00:21→17:22)
[2020-06-28] MEDS: Midodrine 10mg tab ORAL SCH ×4 (01:51→17:21)
[2020-06-28 04:00] VITALS: BP 96/56
--- NOTE | 2020-06-28 04:35 | NUR ---
NURSE NOTES: bed bath performed. no BM. central line dressing changed. oral care performed. vital signs stable
[2020-06-28 04:40] LABS: INR 1.1 (0.9-1.1)
[2020-06-28 04:43] LABS: BASOPHILS % (AUTO) 0.5 % (0.0-2.0); EOSINOPHILS % (AUTO) 2.1 % (0.0-3.0); HEMOGLOBIN 9.6 G/DL (14.2-18.0); LYMPHOCYTES % (AUTO) 12.8 % (20.0-45.0); MEAN CORPUSCULAR VOLUME 91 FL (80-99); MONOCYTES % (AUTO) 3.7 % (1.0-10.0); NEUTROPHILS % (AUTO) 80.9 % (45.0-75.0); PLATELET COUNT 290 K/UL (150-450); RED CELL DISTRIBUTION WIDTH 15.1 % (11.6-14.8); WHITE BLOOD COUNT 13.7 K/UL (4.8-10.8)
[2020-06-28 04:53] LABS: ALANINE AMINOTRANSFERASE 36 U/L (12-78); ALBUMIN 2.7 G/DL (3.4-5.0); ALBUMIN/GLOBULIN RATIO 0.5 (1.0-2.7); ALKALINE PHOSPHATASE 73 U/L (46-116); AMYLASE 34 U/L (25-115); ANION GAP 9 mmol/L (5-15); ASPARTATE AMINO TRANSFERASE 15 U/L (15-37); BILIRUBIN,TOTAL 0.7 MG/DL (0.2-1.0); BLOOD UREA NITROGEN 24 mg/dL (7-18); CALCIUM 9.3 MG/DL (8.5-10.1); CARBON DIOXIDE 28 MMOL/L (21-32); CHLORIDE 118 MMOL/L (98-107); CHOLESTEROL 88 MG/DL (< 200); CREATININE 1.2 MG/DL (0.55-1.30); HDL CHOLESTEROL 10 MG/DL (40-60); POTASSIUM 3.6 MMOL/L (3.5-5.1); SODIUM 155 MMOL/L (136-145); TRIGLYCERIDES 395 MG/DL (30-150)
[2020-06-28 04:54] LABS: CREATINE KINASE 177 U/L (26-308); GAMMA GLUTAMYL TRANSPEPTIDASE 155 U/L (5-85); LACTATE DEHYDROGENASE 113 U/L (81-234); PHOSPHORUS 2.3 MG/DL (2.5-4.9)
--- NOTE | 2020-06-28 06:18 | Consultation ---
History of Present Illness General Chief Complaint: Dyspnea/Respdistress Present Illness Allergies: Coded Allergies: CEFTRIAXONE (Unverified Allergy, Unknown, 06/27/20) NO KNOWN DRUG ALLERGIES (Unverified Allergy, Unknown, 06/28/15) Medication History Scheduled Bacitracin Zinc* (Bacitracin Zinc*), 1 APPLIC TOPIC DAILY, (Reported) Cranberry Extract (Cranberry Juice Powder), 425 MG GT DAILY, (Reported) Ergocalciferol (Vitamin D2)* (Vitamin D*), 50,000 UNIT ORAL ONCE A WEEK, (Reported) Esomeprazole Magnesium (Nexium), 40 MG GT BID, (Reported) Heparin Sod (Porcine) (Heparin Sodium*), 5,000 UNITS SUBQ EVERY 12 HOURS, ( Reported) Insulin Glargine (Lantus), 24 UNITS SUBQ BEDTIME, (Reported) Ipratropium/Albuterol Sulfate (DuoNeb 0.5-3(2.5)mg/3ml), 3 ML HHN Q4HR, (Reported) Levetiracetam (Keppra), 5 ML GT TWICE A DAY, (Reported) Magnesium Hydroxide* (Milk Of Magnesia*), 30 ML GT DAILY, (Reported) Magnesium Oxide (Magnesium Oxide), 400 MG GT DAILY, (Reported) Metformin Hcl* (Metformin Hcl*), 1,000 MG GT BID, (Reported) Multivit-Min/Iron Fum/Folic AC (Hdndw-Orarhjj-Xphfftvs Tablet), 1 EACH GT DAILY, (Reported) Zinc Oxide (Skin Protectant), 113 GM TP BID, (Reported) Scheduled PRN Acetaminophen 160MG/5ML* (Acetaminophen*), 20.3 ML GT Q4HR PRN for PAIN 1-3 OR TEMP > 100.4, (Reported) Miscellaneous Medications Insulin Lispro (Humalog), 0 SUBQ, (Reported) Lactulose (Lactulose*), 30 ML GT, (Reported) Patient History Healthcare decision maker Resuscitation status Advanced Directive on File Physical Exam Last 24 Hour Vital Signs Date Time Temp Pulse Resp B/P (MAP) Pulse Ox O2 Delivery O2 Flow Rate FiO2 06/28/20 05:15 86 14 40 06/28/20 04:00 40 06/28/20 04:00 98.6 89 14 96/56 (69) 98 06/28/20 04:00 Mechanical Ventilator 06/28/20 04:00 88 06/28/20 03:20 85 13 40 06/28/20 00:00 98.8 94 15 98/55 (69) 99 06/28/20 00:00 Mechanical Ventilator 06/28/20 00:00 94 06/27/20 23:10 96 17 40 06/27/20 21:15 75 14 40 06/27/20 20:00 106 06/27/20 20:00 99.1 109 19 116/95 (102) 99 109 06/27/20 20:00 40 06/27/20 20:00 Mechanical Ventilator 06/27/20 19:20 109 13 40 06/27/20 16:38 99.1 06/27/20 16:30 99.1 06/27/20 16:25 125 06/27/20 16:00 Mechanical Ventilator 06/27/20 16:00 101.1 126 23 96/59 (71) 96 126 06/27/20 16:00 40 06/27/20 15:00 120 19 40 06/27/20 12:24 Mechanical Ventilator 06/27/20 11:50 113 06/27/20 11:44 97.9 114 12 97/64 (75) 99 114 06/27/20 11:41 121 24 100 Mechanical Ventilator 40 06/27/20 11:37 121 24 40 06/27/20 11:30 98.0 104 18 100/60 97 Mechanical Ventilator 104 06/27/20 10:37 110 17 105/71 99 06/27/20 09:19 110 17 88/61 99 Trach Collar 15.0 40 06/27/20 07:27 121 17 Endotracheal Tube 15.0 100 06/27/20 07:25 98.5 17 99/69 100 Endotracheal Tube 15.0 100 Intake and Output 06/27/20 06/28/20 19:00 07:00 Intake Total 385.0 ml 1000 ml Output Total 1200 ml Balance -815.0 ml 1000 ml Intake Free Water 30 ml IV Total 355.0 ml 1000 ml Output Urine Total 1200 ml Laboratory Tests Test 06/27/20 08:00 06/28/20 04:15 Lactic Acid Level 3.70 mmol/L (0.66-2.22) H 1.70 mmol/L (0.4-2.0) White Blood Count 13.7 K/UL (4.8-10.8) H Red Blood Count 3.40 M/UL (4.70-6.10) L Hemoglobin 9.6 G/DL (14.2-18.0) L Hematocrit 31.0 % (42.0-52.0) L Mean Corpuscular Volume 91 FL (80-99) Mean Corpuscular Hemoglobin 28.2 PG (27.0-31.0) Mean Corpuscular Hemoglobin Concent 30.9 G/DL (32.0-36.0) L Red Cell Distribution Width 15.1 % (11.6-14.8) H Platelet Count 290 K/UL (150-450) Mean Platelet Volume 9.9 FL (6.5-10.1) Neutrophils (%) (Auto) 80.9 % (45.0-75.0) H Lymphocytes (%) (Auto) 12.8 % (20.0-45.0) L Monocytes (%) (Auto) 3.7 % (1.0-10.0) Eosinophils (%) (Auto) 2.1 % (0.0-3.0) Basophils (%) (Auto) 0.5 % (0.0-2.0) Erythrocyte Sedimentation Rate 122 MM/HR (0-15) H Prothrombin Time 12.1 SEC (9.30-11.50) H Prothromb Time International Ratio 1.1 (0.9-1.1) Activated Partial Thromboplast Time 26 SEC (23-33) Sodium Level 155 MMOL/L (136-145) H Potassium Level 3.6 MMOL/L (3.5-5.1) Chloride Level 118 MMOL/L (98-107) H Carbon Dioxide Level 28 MMOL/L (21-32) Anion Gap 9 mmol/L (5-15) Blood Urea Nitrogen 24 mg/dL (7-18) H Creatinine 1.2 MG/DL (0.55-1.30) Estimat Glomerular Filtration Rate > 60 mL/min (>60) Glucose Level 328 MG/DL (74-106) #H Hemoglobin A1c 8.9 % (4.3-6.0) H Uric Acid 6.2 MG/DL (2.6-7.2) Calcium Level 9.3 MG/DL (8.5-10.1) Phosphorus Level 2.3 MG/DL (2.5-4.9) L Magnesium Level 2.5 MG/DL (1.8-2.4) H Total Bilirubin 0.7 MG/DL (0.2-1.0) Gamma Glutamyl Transpeptidase 155 U/L (5-85) H Aspartate Amino Transf (AST/SGOT) 15 U/L (15-37) Alanine Aminotransferase (ALT/SGPT) 36 U/L (12-78) Alkaline Phosphatase 73 U/L (46-116) Lactate Dehydrogenase 113 U/L (81-234) Total Creatine Kinase 177 U/L (26-308) C-Reactive Protein, Quantitative 26.8 mg/dL (0.00-0.90) H Pro-B-Type Natriuretic Peptide 195 pg/mL (0-125) H Total Protein 7.8 G/DL (6.4-8.2) Albumin 2.7 G/DL (3.4-5.0) L Globulin 5.1 g/dL Albumin/Globulin Ratio 0.5 (1.0-2.7) L Triglycerides Level 395 MG/DL (30-150) H Cholesterol Level 88 MG/DL (< 200) LDL Cholesterol 31 mg/dL (<100) HDL Cholesterol 10 MG/DL (40-60) L Cholesterol/HDL Ratio 8.8 (3.3-4.4) H Amylase Level 34 U/L (25-115) Lipase 75 U/L (73-393) Vitamin B12 Level 290 PG/ML (193-986) Vitamin D 25-Hydroxy Pending 25-Hydroxy Vitamin D2 Pending 25-Hydroxy Vitamin D3 Pending Thyroid Stimulating Hormone (TSH) 1.807 uiU/mL (0.358-3.740) Cortisol AM Sample Pending Height (Feet): 5 Height (Inches): 8.00 Weight (Pounds): 180 Medications Current Medications Medications (Trade) Dose Ordered Sig/Tony Route PRN Reason Start Time Stop Time Status Last Admin Dose Admin Acetaminophen (Tylenol) 650 mg Q4H PRN GT Temp >100.5 06/27/20 20:00 07/27/20 19:59 Chlorhexidine Gluconate (Kay-Hex 2%) 1 applic DAILY@2000 TOPIC 06/28/20 20:00 09/26/20 19:59 Dextrose (Dextrose 50%) 25 ml Q30M PRN IV Hypoglycemia 06/27/20 17:00 09/25/20 16:59 Dextrose (Dextrose 50%) 50 ml Q30M PRN IV Hypoglycemia 06/27/20 17:00 09/25/20 16:59 Heparin Sodium (Porcine) (Heparin 5000 units/ml) 5,000 units EVERY 12 HOURS SUBQ 06/27/20 21:00 08/11/20 20:59 06/27/20 20:33 Insulin Aspart (NovoLOG) Q6HR SUBQ 06/27/20 18:00 09/25/20 17:59 06/28/20 00:21 Insulin Detemir (Levemir) 34 units BEDTIME SUBQ 06/27/20 21:00 09/25/20 20:59 06/27/20 20:32 Midodrine (Pro-Amatine) 10 mg THREE TIMES A DAY ORAL 06/28/20 02:00 09/25/20 15:29 06/28/20 01:51 Ondansetron HCl (Zofran) 4 mg Q4H PRN IVP Nausea & Vomiting 06/27/20 14:45 07/27/20 14:44 Pantoprazole (Protonix) 40 mg Q12HR IVP 06/27/20 21:00 07/27/20 19:59 06/27/20 20:31 Piperacillin Sod/ Tazobactam Sod 3.375 gm/Sodium Chloride 110 ml @ 27.5 mls/hr Q8HR@0000,0800,1600 IVPB 06/27/20 16:00 07/04/20 15:59 06/27/20 23:40 Sodium Chloride 1,000 ml @ 100 mls/hr Q10H IV 06/27/20 15:30 07/27/20 15:29 06/28/20 01:52 Assessment/Plan Assessment/Plan: HEMATOLOGY-ONCOLOGY CONSULT NOTE REFERRING PHYSICIAN: Liset Wallace REASON FOR CONSULT: Progressive anemia DOS: 06/28/[address] Wallace to eval 49y old male a resident is well known to me, is resident of an extended care facility subacute unit, in stable condition over the last several months. He is known to have several chronic medical syndrome, but has been stable on his current medication. On the day of admission, he developed fever, tachycardia, leukocytosis, and hypoxia. He came to [facility] ER and was admitted. Hematology services consulted for the evaluation of leukocytosis and anemia. Labs and imaging have been reviewed. Currently started on abx. is on Zosyn, imaging reviewed. PAST MEDICAL HISTORY: The patient has intracerebral hemorrhage that was Followed by respiratory failure. He had to be intubated and placed on mechanical ventilation. He was unable to be weaned and underwent tracheostomy and gastrostomy. In addition to the, the patient is now in chronic respiratory failure. His Jackson Coma Scale is 7. In addition, the patient has seizure disorder, high blood pressure, diabetes mellitus, morbid obesity, hyperlipidemia, and hypervitaminosis D. ALLERGIES: No known drug allergies. MEDICATIONS: The patient is on respiratory therapy with albuterol sulfate, ipratropium bromide inhalation therapy every 6 hours. He is on multivitamin daily. He is on zinc sulfate 220 mg daily. He is on Tylenol 650 q.6 hours p.r.n. for fever and pain. He is on sliding scale regular insulin of moderate intensity. He is on Lantus insulin 20 units at bedtime and 10 units in the a.m., metformin 500 mg b.i.d. He is on lisinopril 20 mg daily. FAMILY HISTORY: Noncontributory. SOCIAL HISTORY: He is . His is daily at his bedside. HABITS: The patient did not smoke, drink, or use illicit drugs. REVIEW OF SYSTEMS: The patient is unable to give any information regarding his state of health. Physical Exam HEENT: normocephalic, bilateral eye PERRL Neck: normal inspection, supple, tracheotomy - site c/d/i ++ vent Respiratory: chest non-tender, lungs clear, normal breath sounds, chest symmetrical, palpation of chest normal Cardiovascular : normal peripheral pulses, regular rate, rhythm Gastrointestinal: normal inspection, non tender, soft, no mass, no guarding, no rebound, ++ feeding tube c/d/i Genitourinary: normal inspection, no CVA tenderness Musculoskeletal: back normal, gait/station normal, normal range of motion, non- tender, no calf tenderness Neurologic: nonverbal Skin: normal color, no darrell GI: ++ byrnes Labs: noted Imaging: reviewed # New sclerotic osseous lesions concerning for metastases, including a 2.6 cm s clerotic lesion in the T12 vertebral body, a 2.6 cm sclerotic lesion in the left acetabulum, and a 1.3 cm sclerotic lesion in the intertrochanteric right femur. No evidence of pathologic fracture. --> Query for any history of primary malignancy (e.g. prostate cancer or other malignancies). ==> tumor markers have ordered --> consider bone scan once improved # Anemia due to chronic disease v gi bleed, hgb downtrending since admission --> last time I saw this patient, hgb was 13.1, this was back in 2018 --> hgb trend 9-->8.1-->6.9->>>9 --> 2 units prbc for 06/24 --> iv iron x 5 days given, low sat and ferritin relative to inflammatory process # Coagulopathy is likely due to dic --> vit k as as need, ffp as well --> if worsening coagulopathy and bleeding given ffp --> at this time treatment of underlying process # Leukocytosis is likely related to underyling Pna --> also with neck abscess per surgery --> has been started on abx --> now IMPROVEd --> wbc 13 # Left lower lobe consolidation with pNA with infiltrates --> with sepsis poa, is on broad spectrum abx --> on pressors in icu on adm # Chronic cholecystitis s/p cholecystostomy tube in the past # Chronic resp failure vent/trach dependant # Asthma/COPD # HTN # Dm2 # Dementia # CVA s/p vegetative state # Dysphagia s/p G-tube # seizure disorder # SNF resident GREATLY APPRECIATE CONSULTATION. Manolo Solares MD Jun 28, 2020 06:18
--- NOTE | 2020-06-28 07:13 | NUR ---
NURSE HAND-OFF REPORT: Important Events on Shift: remains stable Patient Status: FULL CODE Diet: NPO Pending Orders: [] Pending Results/Labs:[] Pending MD notification:[] Latest Vital Signs: Temperature 98.6 , Pulse 86 , B/P 96 /56 , Respiratory Rate 14 , O2 SAT 98 , Mechanical Ventilator, O2 Flow Rate 15.0 . Vital Sign Comment: stable EKG Rhythm: Sinus Rhythm Rhythm change?: N MD Notified?: - MD Response: Latest Fields Fall Score: 70 Fall Risk: High Risk Safety Measures: Call light Within Reach, Bed Alarm Zone 1, Side Rails Side Rails x2, Bed position Low and Locked. Fall Precautions: Yellow Socks Yellow Gown Door Sign Patient Fall Education Report given to MANUEL Reyna.
--- NOTE | 2020-06-28 07:50 | NUR ---
NURSE NOTES: Received report from MANUEL Mohamud. Pt is lying in bed, obtunded. Not in acute distress. Tolerating vent setting of AC 12, TV 500, FiO2 40%, and PEEP of 5 saturating 97%. SR on the telemetry monitor. G-tube is intact and patent, Pt is NPO. Wounds noted and dressing intact. R femoral PICC line TLC is intact and patent, and running 1/2 NS @ 100cc/hr. Folery catheter is intact and patent and draining yellow urine. Recent labs, medication, isolation, and MD orders reviewed. Bed is locked and in lowest position, bed alarm on, call light is within reach. Head of bed is elevated. Will continue to monitor pt. Will continue with the plan of care.
[2020-06-28 08:00] VITALS: BP 92/60
[2020-06-28] MEDS: Piperacillin/Tazobactam 3.375 GM in NS 110 ML IVPB SCH ×2 (08:22→15:30)
[2020-06-28] MEDS: Pantoprazole Inj IVP SCH ×2 (09:21→20:55)
[2020-06-28] MEDS: Heparin 5000 units/ml inj SUBQ SCH ×2 (09:23→21:00)
--- NOTE | 2020-06-28 09:27 | Consultation ---
History of Present Illness General Date patient seen: Jun 28, 2020 Time patient seen: 10:47 Chief Complaint: Dyspnea/Respdistress Referring physician: PCP Reason for Consultation: Sepsis Present Illness HPI 49yo M in vegetative state who p/w fever, hypoxia and resp distress. ID c/s given sepsis. Pt was febrile to 101.1 with leukocytosis to 15. UA from chronic byrnes positive for inflammation and UCx +E.coli. Pt started on IV abx On vent via trach Allergies: Coded Allergies: CEFTRIAXONE (Unverified Allergy, Unknown, 06/27/20) NO KNOWN DRUG ALLERGIES (Unverified Allergy, Unknown, 06/28/15) Medication History Scheduled Bacitracin Zinc* (Bacitracin Zinc*), 1 APPLIC TOPIC DAILY, (Reported) Cranberry Extract (Cranberry Juice Powder), 425 MG GT DAILY, (Reported) Ergocalciferol (Vitamin D2)* (Vitamin D*), 50,000 UNIT ORAL ONCE A WEEK, (Reported) Esomeprazole Magnesium (Nexium), 40 MG GT BID, (Reported) Heparin Sod (Porcine) (Heparin Sodium*), 5,000 UNITS SUBQ EVERY 12 HOURS, (Reported) Insulin Glargine (Lantus), 24 UNITS SUBQ BEDTIME, (Reported) Ipratropium/Albuterol Sulfate (DuoNeb 0.5-3(2.5)mg/3ml), 3 ML HHN Q4HR, (Reported) Levetiracetam (Keppra), 5 ML GT TWICE A DAY, (Reported) Magnesium Hydroxide* (Milk Of Magnesia*), 30 ML GT DAILY, (Reported) Magnesium Oxide (Magnesium Oxide), 400 MG GT DAILY, (Reported) Metformin Hcl* (Metformin Hcl*), 1,000 MG GT BID, (Reported) Multivit-Min/Iron Fum/Folic AC (Hjolw-Hrgcwgs-Fvrpeycx Tablet), 1 EACH GT DAILY, (Reported) Zinc Oxide (Skin Protectant), 113 GM TP BID, (Reported) Scheduled PRN Acetaminophen 160MG/5ML* (Acetaminophen*), 20.3 ML GT Q4HR PRN for PAIN 1-3 OR T EMP > 100.4, (Reported) Miscellaneous Medications Insulin Lispro (Humalog), 0 SUBQ, (Reported) Lactulose (Lactulose*), 30 ML GT, (Reported) Patient History Limited by: medical condition Healthcare decision maker Resuscitation status Advanced Directive on File Review of Systems ROS Narrative Unable to assess 2/2 pt condition Physical Exam Physical Exam Narrative Gen: NAD HEENT: NCAT, trach Pulm: BL chest rise on vent Abd: Soft, NTND, obese, PEG Ext: No c/c/e Skin: No visible rashes Neuro: Not interactive Lines: Byrnes, R fem CVC Last 24 Hour Vital Signs Date Time Temp Pulse Resp B/P (MAP) Pulse Ox O2 Delivery O2 Flow Rate FiO2 06/28/20 05:15 86 14 40 06/28/20 04:00 40 06/28/20 04:00 98.6 89 14 96/56 (69) 98 06/28/20 04:00 Mechanical Ventilator 06/28/20 04:00 88 06/28/20 03:20 85 13 40 06/28/20 00:00 98.8 94 15 98/55 (69) 99 06/28/20 00:00 Mechanical Ventilator 06/28/20 00:00 94 06/27/20 23:10 96 17 40 06/27/20 21:15 75 14 40 06/27/20 20:00 106 06/27/20 20:00 99.1 109 19 116/95 (102) 99 109 06/27/20 20:00 40 06/27/20 20:00 Mechanical Ventilator 06/27/20 19:20 109 13 40 06/27/20 16:38 99.1 06/27/20 16:30 99.1 06/27/20 16:25 125 06/27/20 16:00 Mechanical Ventilator 06/27/20 16:00 101.1 126 23 96/59 (71) 96 126 06/27/20 16:00 40 06/27/20 15:00 120 19 40 06/27/20 12:24 Mechanical Ventilator 06/27/20 11:50 113 06/27/20 11:44 97.9 114 12 97/64 (75) 99 114 06/27/20 11:41 121 24 100 Mechanical Ventilator 40 06/27/20 11:37 121 24 40 06/27/20 11:30 98.0 104 18 100/60 97 Mechanical Ventilator 104 06/27/20 10:37 110 17 105/71 99 Intake and Output 06/27/20 06/28/20 18:59 06:59 Intake Total 285.0 ml 1250 ml Output Total 1200 ml 800 ml Balance -915.0 ml 450 ml Intake Free Water 30 ml 50 ml IV Total 255.0 ml 1200 ml Output Urine Total 1200 ml 800 ml Laboratory Tests Test 06/28/20 04:15 White Blood Count 13.7 K/UL (4.8-10.8) H Red Blood Count 3.40 M/UL (4.70-6.10) L Hemoglobin 9.6 G/DL (14.2-18.0) L Hematocrit 31.0 % (42.0-52.0) L Mean Corpuscular Volume 91 FL (80-99) Mean Corpuscular Hemoglobin 28.2 PG (27.0-31.0) Mean Corpuscular Hemoglobin Concent 30.9 G/DL (32.0-36.0) L Red Cell Distribution Width 15.1 % (11.6-14.8) H Platelet Count 290 K/UL (150-450) Mean Platelet Volume 9.9 FL (6.5-10.1) Neutrophils (%) (Auto) 80.9 % (45.0-75.0) H Lymphocytes (%) (Auto) 12.8 % (20.0-45.0) L Monocytes (%) (Auto) 3.7 % (1.0-10.0) Eosinophils (%) (Auto) 2.1 % (0.0-3.0) Basophils (%) (Auto) 0.5 % (0.0-2.0) Erythrocyte Sedimentation Rate 122 MM/HR (0-15) H Prothrombin Time 12.1 SEC (9.30-11.50) H Prothromb Time International Ratio 1.1 (0.9-1.1) Activated Partial Thromboplast Time 26 SEC (23-33) Sodium Level 155 MMOL/L (136-145) H Potassium Level 3.6 MMOL/L (3.5-5.1) Chloride Level 118 MMOL/L (98-107) H Carbon Dioxide Level 28 MMOL/L (21-32) Anion Gap 9 mmol/L (5-15) Blood Urea Nitrogen 24 mg/dL (7-18) H Creatinine 1.2 MG/DL (0.55-1.30) Estimat Glomerular Filtration Rate > 60 mL/min (>60) Glucose Level 328 MG/DL (74-106) #H Hemoglobin A1c 8.9 % (4.3-6.0) H Lactic Acid Level 1.70 mmol/L (0.4-2.0) Uric Acid 6.2 MG/DL (2.6-7.2) Calcium Level 9.3 MG/DL (8.5-10.1) Phosphorus Level 2.3 MG/DL (2.5-4.9) L Magnesium Level 2.5 MG/DL (1.8-2.4) H Total Bilirubin 0.7 MG/DL (0.2-1.0) Gamma Glutamyl Transpeptidase 155 U/L (5-85) H Aspartate Amino Transf (AST/SGOT) 15 U/L (15-37) Alanine Aminotransferase (ALT/SGPT) 36 U/L (12-78) Alkaline Phosphatase 73 U/L (46-116) Lactate Dehydrogenase 113 U/L (81-234) Total Creatine Kinase 177 U/L (26-308) C-Reactive Protein, Quantitative 26.8 mg/dL (0.00-0.90) H Pro-B-Type Natriuretic Peptide 195 pg/mL (0-125) H Total Protein 7.8 G/DL (6.4-8.2) Albumin 2.7 G/DL (3.4-5.0) L Globulin 5.1 g/dL Albumin/Globulin Ratio 0.5 (1.0-2.7) L Triglycerides Level 395 MG/DL (30-150) H Cholesterol Level 88 MG/DL (< 200) LDL Cholesterol 31 mg/dL (<100) HDL Cholesterol 10 MG/DL (40-60) L Cholesterol/HDL Ratio 8.8 (3.3-4.4) H Amylase Level 34 U/L (25-115) Lipase 75 U/L (73-393) Carcinoembryonic Antigen Pending CA 19-9 Antigen Pending Prostate Specific Antigen 50.24 ng/mL (0.13-4.0) H Vitamin B12 Level 290 PG/ML (193-986) Vitamin D 25-Hydroxy Pending 25-Hydroxy Vitamin D2 Pending 25-Hydroxy Vitamin D3 Pending Thyroid Stimulating Hormone (TSH) 1.807 uiU/mL (0.358-3.740) Cortisol AM Sample Pending Height (Feet): 5 Height (Inches): 8.00 Weight (Pounds): 180 Medications Current Medications Medications (Trade) Dose Ordered Sig/Tony Route PRN Reason Start Time Stop Time Status Last Admin Dose Admin Acetaminophen (Tylenol) 650 mg Q4H PRN GT Temp >100.5 06/27/20 20:00 07/27/20 19:59 Chlorhexidine Gluconate (Kay-Hex 2%) 1 applic DAILY@2000 TOPIC 06/28/20 20:00 09/26/20 19:59 Dextrose (Dextrose 50%) 25 ml Q30M PRN IV Hypoglycemia 06/27/20 17:00 09/25/20 16:59 Dextrose (Dextrose 50%) 50 ml Q30M PRN IV Hypoglycemia 06/27/20 17:00 09/25/20 16:59 Heparin Sodium (Porcine) (Heparin 5000 units/ml) 5,000 units EVERY 12 HOURS SUBQ 06/27/20 21:00 08/11/20 20:59 06/27/20 20:33 Insulin Aspart (NovoLOG) Q6HR SUBQ 06/27/20 18:00 09/25/20 17:59 06/28/20 06:30 Insulin Detemir (Levemir) 34 units BEDTIME SUBQ 06/27/20 21:00 09/25/20 20:59 06/27/20 20:32 Midodrine (Pro-Amatine) 10 mg THREE TIMES A DAY ORAL 06/28/20 02:00 09/25/20 15:29 06/28/20 01:51 Ondansetron HCl (Zofran) 4 mg Q4H PRN IVP Nausea & Vomiting 06/27/20 14:45 07/27/20 14:44 Pantoprazole (Protonix) 40 mg Q12HR IVP 06/27/20 21:00 07/27/20 19:59 06/27/20 20:31 Piperacillin Sod/ Tazobactam Sod 3.375 gm/Sodium Chloride 110 ml @ 27.5 mls/hr Q8HR@0000,0800,1600 IVPB 06/27/20 16:00 07/04/20 15:59 06/28/20 08:22 Sodium Chloride 1,000 ml @ 100 mls/hr Q10H IV 06/27/20 15:30 07/27/20 15:29 06/28/20 01:52 Assessment/Plan Assessment/Plan: 49yo M who p/w: GPC bacteremia UTI Resp distress 2/2 LLL pneumonia Febrile to 101.1 Leukocytosis to 15 Lymphopenia 06/27 BCx +GPCs UA 40-60 WBC, UCx >100k E.coli, sensi p COVID PCR p Flu neg CXR: Left basilar airspace opacity concerning for pneumonia in the appropriate clinical setting. CT A/P: 1. Left lower lobe consolidation with air bronchograms, concerning for pneumonia. Hazy opacities in the left upper lobe/lingula could represent additional areas of pneumonitis. 2. Trace bilateral pleural effusions. 3. Mild dependent atelectasis in the right lung base. 4. Left-sided nonobstructive nephrolithiasis, with at least three separate 2 mm stones. No radiodense ureteral stones identified. No hydronephrosis or hydroureter. Mild bilateral pelvic stranding. 5. 2 mm stone lying dependently in the urinary bladder lumen. 6. Luminal air-fluid levels throughout small bowel and colon without wall thickening, which may suggest mild enterocolitis and/or diarrheal disease. No evidence of bowel obstruction. 7. New sclerotic osseous lesions concerning for metastases, including a 2.6 cm sclerotic lesion in the T12 vertebral body, a 2.6 cm sclerotic lesion in the left acetabulum, and a 1.3 cm sclerotic lesion in the intertrochanteric right femur. No evidence of pathologic fracture. Query for any history of primary malignancy (e.g. prostate cancer or other malignancies). 06/28 BCx ordered Cr 1.2 HTN Asthma COPD Persistent vegetative state CVA DM2 Chronic respiratory failure s/p trach/vent dependent Dysphagia s/p GT NH resident Plan: Cont vanco IV #2 given GPC bacteremia Cont empiric Zosyn #2 for UTI, pna Sputum cx Ensure byrnes exchanged from admission, d/w RN F/u BCx, repeating today 06/28 F/u UCx + E.coli F/u COVID PCR Trend WBC Trend drop in Hg 06/27 SP vanco x1 in ED Monitor CBC/CMP Monitor temp curve, hemodynamics Monitor resp status D/w RN Thank you for this consult. [facility] will continue to follow. Natalia King M.D. Jun 28, 2020 09:27
--- NOTE | 2020-06-28 09:54 | NUR ---
RD ASSESSMENT & RECOMMENDATIONS SEE CARE ACTIVITY FOR COMPLETE ASSESSMENT DAILY ESTIMATED NEEDS: Needs based on Critical care, wounds 76kg 22-30 kcals/kg 5763-8371 total kcals 1.25-2 g protein/kg 95-152 g total protein 25-30 mL/kg 1695-7531 total fluid mLs NUTRITION DIAGNOSIS: 1) Increased kcal/pro needs R/T wound healing as evidenced by pt admitted w/ multiple wounds per photos @ sacrum, BL buttocks, and neck, pending evaluation. 2) Swallowing difficulty R/T respiratory status as evidenced by pt trach/PEG dep for all nutritional needs. CURRENT TF:NPO ENTERAL NUTRITION RECOMMENDATIONS: Glucerna 1.5 @ 55ml/hr x 24 hrs to provide 1320ml, 1980kcal, 109g prot, 1002ml free water - As medically appropriate, initiate SPRINKLER HELPER TF formula of Glucerna 1.5 @ 35ml/hr c 6hrs, advance 10ml q 4-6 hrs as tolerated to goal rate - HOB over 30 degrees/ water flush 160ml q 4hrs without IVF ADDITIONAL RECOMMENDATIONS: 1. Maintain calibrated bed scale for accurate CBW 2. Wound healing: Add Vit C 500mg QD + ZnSO4 220mg QD x 10 days, Christian BID TF rec @ goal will provide 100% RDI/ f/up w/ WC eval. 3. Monitor lytes daily, replete as needed (low phos) 4. Monitor BGs, need for insulin adjustment: POC 400's . .
--- NOTE | 2020-06-28 09:56 | NUR ---
NURSE NOTES: Lab personnel called, regarding blood culture result of + Gram + cocci in clusters. Dr. Wallace informed. Awaiting reply.
--- NOTE | 2020-06-28 10:00 | NUR ---
NURSE NOTES: Initial assessment done. Morning medications administer per order. Pt is tolerating vent setting with saturation 100%. VSS. BP systolic 90s. 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 Oral care and suctioning done. Pt is not in acute distress. Will continue to monitor pt.
--- NOTE | 2020-06-28 10:03 | NUR ---
CASE MANAGEMENT:REVIEW 49YR OLD MALE BIBA FROM [facility] CC: RESPIRATORY DISTRESS AND TACHYCARDIA. SATS 88% HR 150'S PMH: TRACHEOSTOMY. GTUBE. VEGETATIVE STATE SI:SEPSIS. PNA. UTI. NECK ABSCESS 95.6 150 20 88/61 92% ON TRACH COLLAR WBC+15.8 GLUCOSE+544 LACTIC ACID+5.5 IS: PLACED ON VENTILATOR SUPPORT W/40% FIO2 2L NS BOLUS IV ZOSYN X1 IV LEVAQUIN X1 URINE CX CHEST XRAY BLOOD CX : TO STEP DOWN UNIT DCP: FROM [facility]
--- NOTE | 2020-06-28 11:20 | NUR ---
Dr. King is consulted. Blood culture results relayed to her. Dr. King ordered to change the Waddell catheter, and to collect sputum for culture. Orders carried out. Will continue to monitor pt.
[2020-06-28] MEDS: Vancomycin 1.25gm Premix q24h IVPB SCH (11:44)
[2020-06-28 12:00] VITALS: BP 106/70
--- NOTE | 2020-06-28 12:42 | Nephrology Progress Note ---
Assessment/Plan Problem List: (1) JEFFY (acute kidney injury) (2) Chronic respiratory failure (3) Diabetes mellitus, type II (4) Sepsis (5) Ventilator dependent (6) Severe anemia Assessment Acute renal failure Dehydration Hypernatremia Sepsis, pneumonia, UTI Neck abscess Hyperglycemia Plan June 28: Labs reviewed. Serum sodium rising. IV changed to D5W. Levemir adjusted to 20 units every 12 hours. Continue to monitor renal parameters and electrolytes. Albumin bolus given. Previously: Hydrate with half-normal saline Monitor renal parameters Midodrine Albumin bolus Monitor renal parameters and electrolytes Avoid nephrotoxic's Per orders Subjective ROS Limited/Unobtainable: Yes Objective Objective Last 24 Hour Vital Signs Date Time Temp Pulse Resp B/P (MAP) Pulse Ox O2 Delivery O2 Flow Rate FiO2 06/28/20 08:00 97.7 75 12 92/60 (71) 98 06/28/20 08:00 Mechanical Ventilator 06/28/20 08:00 76 06/28/20 08:00 40 06/28/20 07:10 80 14 40 06/28/20 05:15 86 14 40 06/28/20 04:00 40 06/28/20 04:00 98.6 89 14 96/56 (69) 98 06/28/20 04:00 Mechanical Ventilator 06/28/20 04:00 88 06/28/20 03:20 85 13 40 06/28/20 00:00 98.8 94 15 98/55 (69) 99 06/28/20 00:00 Mechanical Ventilator 06/28/20 00:00 94 06/27/20 23:10 96 17 40 06/27/20 21:15 75 14 40 06/27/20 20:00 106 06/27/20 20:00 99.1 109 19 116/95 (102) 99 109 06/27/20 20:00 40 06/27/20 20:00 Mechanical Ventilator 06/27/20 19:20 109 13 40 06/27/20 16:38 99.1 06/27/20 16:30 99.1 06/27/20 16:25 125 06/27/20 16:00 Mechanical Ventilator 06/27/20 16:00 101.1 126 23 96/59 (71) 96 126 06/27/20 16:00 40 06/27/20 15:00 120 19 40 Intake and Output 06/27/20 06/28/20 19:00 07:00 Intake Total 385.0 ml 1250 ml Output Total 1200 ml 800 ml Balance -815.0 ml 450 ml Intake Free Water 30 ml 50 ml IV Total 355.0 ml 1200 ml Output Urine Total 1200 ml 800 ml Current Medications Medications (Trade) Dose Ordered Sig/Tony Route PRN Reason Start Time Stop Time Status Last Admin Dose Admin Acetaminophen (Tylenol) 650 mg Q4H PRN GT Temp >100.5 06/27/20 20:00 07/27/20 19:59 Chlorhexidine Gluconate (Kay-Hex 2%) 1 applic DAILY@2000 TOPIC 06/28/20 20:00 09/26/20 19:59 Dextrose 1,000 ml @ 100 mls/hr Q10H IV 06/28/20 12:45 07/28/20 12:44 Dextrose (Dextrose 50%) 25 ml Q30M PRN IV Hypoglycemia 06/27/20 17:00 09/25/20 16:59 Dextrose (Dextrose 50%) 50 ml Q30M PRN IV Hypoglycemia 06/27/20 17:00 09/25/20 16:59 Heparin Sodium (Porcine) (Heparin 5000 units/ml) 5,000 units EVERY 12 HOURS SUBQ 06/27/20 21:00 08/11/20 20:59 06/28/20 09:23 Insulin Aspart (NovoLOG) Q6HR SUBQ 06/27/20 18:00 09/25/20 17:59 06/28/20 11:54 Insulin Detemir (Levemir) 15 units ONCE ONCE SUBQ 06/28/20 12:45 06/28/20 12:46 UNV Insulin Detemir (Levemir) 20 units Q12HR SUBQ 06/28/20 21:00 09/25/20 20:59 UNV Midodrine (Pro-Amatine) 10 mg THREE TIMES A DAY ORAL 06/28/20 02:00 09/25/20 15:29 06/28/20 12:24 Ondansetron HCl (Zofran) 4 mg Q4H PRN IVP Nausea & Vomiting 06/27/20 14:45 07/27/20 14:44 Pantoprazole (Protonix) 40 mg Q12HR IVP 06/27/20 21:00 07/27/20 19:59 06/28/20 09:21 Piperacillin Sod/ Tazobactam Sod 3.375 gm/Sodium Chloride 110 ml @ 27.5 mls/hr Q8HR@0000,0800,1600 IVPB 06/27/20 16:00 07/04/20 15:59 06/28/20 08:22 Vancomycin HCl 250 ml @ 166.667 mls/hr Q12H IVPB 06/28/20 12:00 07/03/20 11:59 06/28/20 11:44 Vancomycin HCl (Vanco pharmacy to dose) 1 ea DAILY PRN MISC Per rx protocol 06/28/20 11:00 07/28/20 10:59 Laboratory Tests 06/28/20 04:15: White Blood Count 13.7H, Red Blood Count 3.40L, Hemoglobin 9.6L, Hematocrit 31.0L, Mean Corpuscular Volume 91, Mean Corpuscular Hemoglobin 28.2, Mean Corpuscular Hemoglobin Concent 30.9L, Red Cell Distribution Width 15.1H, Platelet Count 290, Mean Platelet Volume 9.9, Neutrophils (%) (Auto) 80.9H, Lymphocytes (%) (Auto) 12.8L, Monocytes (%) (Auto) 3.7, Eosinophils (%) (Auto) 2.1, Basophils (%) (Auto) 0.5, Erythrocyte Sedimentation Rate 122H, Prothrombin Time 12.1H, Prothromb Time International Ratio 1.1, Activated Partial Thromboplast Time 26, Sodium Level 155H, Potassium Level 3.6, Chloride Level 118H, Carbon Dioxide Level 28, Anion Gap 9, Blood Urea Nitrogen 24H, Creatinine 1.2, Estimat Glomerular Filtration Rate > 60, Glucose Level 328#H, Hemoglobin A1 c 8.9H, Lactic Acid Level 1.70, Uric Acid 6.2, Calcium Level 9.3, Phosphorus Level 2.3L, Magnesium Level 2.5H, Total Bilirubin 0.7, Gamma Glutamyl Transpeptidase 155H, Aspartate Amino Transf (AST/SGOT) 15, Alanine Aminotransferase (ALT/SGPT) 36, Alkaline Phosphatase 73, Lactate Dehydrogenase 113, Total Creatine Kinase 177, C-Reactive Protein, Quantitative 26.8H, Pro-B-Type Natriuretic Peptide 195H, Total Protein 7.8, Albumin 2.7L, Globulin 5.1, Albumin/Globulin Ratio 0.5L, Triglycerides Level 395H, Cholesterol Level 88, LDL Cholesterol 31, HDL Cholesterol 10L, Cholesterol/HDL Ratio 8.8H, Amylase Level 34, Lipase 75, Carcinoembryonic Antigen [Pending], CA 19-9 Antigen [Pending], Prostate Specific Antigen 50.24H, Vitamin B12 Level 290, Vitamin D 25-Hydroxy [Pending], 25-Hydroxy Vitamin D2 [Pending], 25-Hydroxy Vitamin D3 [Pending], Thyroid Stimulating Hormone (TSH) 1.807, Cortisol AM Sample [Pending] Height (Feet): 5 Height (Inches): 8.00 Weight (Pounds): 180 General Appearance: no apparent distress EENT: other - Trach to vent Cardiovascular: tachycardia Respiratory/Chest: decreased breath sounds Abdomen: distended Ricky Green MD Jun 28, 2020 12:42
[2020-06-28] MEDS ORDERED: Levemir Flexpen SUBQ SCH (12:45)
--- NOTE | 2020-06-28 12:57 | Surgery Progress Note ---
Surgery Progress Note Subjective Additional Comments Patient seen and examined bedside. No acute events. Comfortable on vent support. Tracheostomy stable. Wound checked and on the posterior neck. With some palpation was able to exude some blood clots and fluid but no pus. Wound bed is palpable and does track from the opening to the right side as noted on the CT scan. Packing dressings placed. Patient tolerated well. Objective Last 24 Hour Vital Signs Date Time Temp Pulse Resp B/P (MAP) Pulse Ox O2 Delivery O2 Flow Rate FiO2 06/28/20 12:00 98.2 81 12 106/70 (82) 98 06/28/20 12:00 Mechanical Ventilator 06/28/20 12:00 40 06/28/20 08:00 97.7 75 12 92/60 (71) 98 06/28/20 08:00 Mechanical Ventilator 06/28/20 08:00 76 06/28/20 08:00 40 06/28/20 07:10 80 14 40 06/28/20 05:15 86 14 40 06/28/20 04:00 40 06/28/20 04:00 98.6 89 14 96/56 (69) 98 06/28/20 04:00 Mechanical Ventilator 06/28/20 04:00 88 06/28/20 03:20 85 13 40 06/28/20 00:00 98.8 94 15 98/55 (69) 99 06/28/20 00:00 Mechanical Ventilator 06/28/20 00:00 94 06/27/20 23:10 96 17 40 06/27/20 21:15 75 14 40 06/27/20 20:00 106 06/27/20 20:00 99.1 109 19 116/95 (102) 99 109 06/27/20 20:00 40 06/27/20 20:00 Mechanical Ventilator 06/27/20 19:20 109 13 40 06/27/20 16:38 99.1 06/27/20 16:30 99.1 06/27/20 16:25 125 06/27/20 16:00 Mechanical Ventilator 06/27/20 16:00 101.1 126 23 96/59 (71) 96 126 06/27/20 16:00 40 06/27/20 15:00 120 19 40 I&O Intake and Output 06/27/20 06/28/20 19:00 07:00 Intake Total 385.0 ml 1250 ml Output Total 1200 ml 800 ml Balance -815.0 ml 450 ml Intake Free Water 30 ml 50 ml IV Total 355.0 ml 1200 ml Output Urine Total 1200 ml 800 ml Dressing: saturated Wound: clean Cardiovascular: RSR Respiratory: clear, decreased breath sounds Abdomen: soft, non-tender, present bowel sounds, non-distended Extremities: no edema, no tenderness, no cyanosis Laboratory Tests Test 06/28/20 04:15 White Blood Count 13.7 K/UL (4.8-10.8) H Red Blood Count 3.40 M/UL (4.70-6.10) L Hemoglobin 9.6 G/DL (14.2-18.0) L Hematocrit 31.0 % (42.0-52.0) L Mean Corpuscular Volume 91 FL (80-99) Mean Corpuscular Hemoglobin 28.2 PG (27.0-31.0) Mean Corpuscular Hemoglobin Concent 30.9 G/DL (32.0-36.0) L Red Cell Distribution Width 15.1 % (11.6-14.8) H Platelet Count 290 K/UL (150-450) Mean Platelet Volume 9.9 FL (6.5-10.1) Neutrophils (%) (Auto) 80.9 % (45.0-75.0) H Lymphocytes (%) (Auto) 12.8 % (20.0-45.0) L Monocytes (%) (Auto) 3.7 % (1.0-10.0) Eosinophils (%) (Auto) 2.1 % (0.0-3.0) Basophils (%) (Auto) 0.5 % (0.0-2.0) Erythrocyte Sedimentation Rate 122 MM/HR (0-15) H Prothrombin Time 12.1 SEC (9.30-11.50) H Prothromb Time International Ratio 1.1 (0.9-1.1) Activated Partial Thromboplast Time 26 SEC (23-33) Sodium Level 155 MMOL/L (136-145) H Potassium Level 3.6 MMOL/L (3.5-5.1) Chloride Level 118 MMOL/L (98-107) H Carbon Dioxide Level 28 MMOL/L (21-32) Anion Gap 9 mmol/L (5-15) Blood Urea Nitrogen 24 mg/dL (7-18) H Creatinine 1.2 MG/DL (0.55-1.30) Estimat Glomerular Filtration Rate > 60 mL/min (>60) Glucose Level 328 MG/DL (74-106) #H Hemoglobin A1c 8.9 % (4.3-6.0) H Lactic Acid Level 1.70 mmol/L (0.4-2.0) Uric Acid 6.2 MG/DL (2.6-7.2) Calcium Level 9.3 MG/DL (8.5-10.1) Phosphorus Level 2.3 MG/DL (2.5-4.9) L Magnesium Level 2.5 MG/DL (1.8-2.4) H Total Bilirubin 0.7 MG/DL (0.2-1.0) Gamma Glutamyl Transpeptidase 155 U/L (5-85) H Aspartate Amino Transf (AST/SGOT) 15 U/L (15-37) Alanine Aminotransferase (ALT/SGPT) 36 U/L (12-78) Alkaline Phosphatase 73 U/L (46-116) Lactate Dehydrogenase 113 U/L (81-234) Total Creatine Kinase 177 U/L (26-308) C-Reactive Protein, Quantitative 26.8 mg/dL (0.00-0.90) H Pro-B-Type Natriuretic Peptide 195 pg/mL (0-125) H Total Protein 7.8 G/DL (6.4-8.2) Albumin 2.7 G/DL (3.4-5.0) L Globulin 5.1 g/dL Albumin/Globulin Ratio 0.5 (1.0-2.7) L Triglycerides Level 395 MG/DL (30-150) H Cholesterol Level 88 MG/DL (< 200) LDL Cholesterol 31 mg/dL (<100) HDL Cholesterol 10 MG/DL (40-60) L Cholesterol/HDL Ratio 8.8 (3.3-4.4) H Amylase Level 34 U/L (25-115) Lipase 75 U/L (73-393) Carcinoembryonic Antigen Pending CA 19-9 Antigen Pending Prostate Specific Antigen 50.24 ng/mL (0.13-4.0) H Vitamin B12 Level 290 PG/ML (193-986) Vitamin D 25-Hydroxy Pending 25-Hydroxy Vitamin D2 Pending 25-Hydroxy Vitamin D3 Pending Thyroid Stimulating Hormone (TSH) 1.807 uiU/mL (0.358-3.740) Cortisol AM Sample Pending Plan Problems: (1) UTI (urinary tract infection) (2) Chronic respiratory failure (3) Acute pancreatitis (4) Hypokalemia (5) Decubitus skin ulcer Assessment & Plan: Pt presented on admission with multiple pressure injuries and Moisture Associated Skin damage Buttocks and Bilateral groin. Both earlobes including medial canals noted to have scaly red plaques and and small lesions. Full thickness stage 3 pressure injury posterior neck under collar of trach. Base of wound has 25% slough,75% beefy red .Small amt serosanguineous exudate noted. Borders are macerated. Surrounding skin is clean and dry. Moisture Associated Skin Damage noted to bilateral groin areas,Buttocks and bilateral ischium. Skin is grossly erythematous and denuded with scattered satellite lesions. Full thickness stage 3 sacral pressure injury. Base of wound is 25% necrotic ,30% slough ,otherwise beefy red with small amt serous exudate.Borders are macerated.(L)(L)8.5cm x (W)10cm. Periwound MASD. Full Thickness stage 3 pressure injury R trochanter. Base of wound 80% beefy red ,20% slough. Small amt serous exudate. Borders are macerated(L)3cm x (W)3.2cm. No odor noted.Periwound MASD. Full Thickness stage 3 pressure injury R ischium. Base of wound is 25% necrotic, beefy red with scattered slough. Borders are macerated. Small amt serous exudate noted. No odor noted.(L)5.3cm x (W)3.9cm. Periwound MASD. Full thickness stage 3 pressure injury L Ischium. Base of wound is beefy red and moist. Borders are macerated. Small amt serous exudate noted.(L)4cm x (W)3.2cm x (D)0.2cm. Both heels are pink and easily blanchable. Bilat foot drop noted. Tx.Plan: Cleanse wounds on Buttocks, sacrum, ishium, trochanter with Saline. Apply Therahoney to wounds. Apply Triad Paste periwound to cover erythematous skin. Cover with Optifoam drsgs Daily and prn. Apply Phytoplex Lotion to R and L ears daily and prn. Apply Cavilon Skin Barrier to Both heels. Cover each heel with Optifoam drsg. Change every 7 days and prn. APM/MAICOL Mattress overlay. Reposition at least every 2hours or as tolerated. Off-load heels with pillow. Place pillow between knees. (6) Electrolyte imbalance (7) Neck abscess Assessment & Plan: 49M spontaneously draining midline to left neck abscess. Patient was identified admission with CT scan to have an abscess in the left neck. On evaluation at bedside there is a 3 cm x 1 cm wide by few centimeter deep fluid collection cavity that has been drained since now with just serosanguineous fluid. Packing dressings applied. Very unfortunate. Will monitor until healing. Thank you for allowing me to participate patient's care packing and dressings going well Oropharynx: Unremarkable. No significant tonsillar enlargement. No peritonsillar abscess. Hypopharynx: Unremarkable. Larynx: Unremarkable. Normal epiglottis. Trachea: Unremarkable. Retropharyngeal space: Unremarkable. Submandibular/parotid glands: Unremarkable. Glands are normal in size. Thyroid: Unremarkable. No enlarged or calcified nodules. Bones/joints: No acute fracture. Soft tissues: 3.8 x 2.6 x 2.4 cm (TRV x CC x AP) subcutaneous fluid collection in the midline posterior neck soft tissues at the level of C4, highly concerning for abscess. Overlying soft tissue stranding and skin thickening. Vasculature: Unremarkable as visualized. Lymph nodes: Unremarkable. No lymphadenopathy. Sinuses: Partial visualization of left maxillary sinus opacification, concerning for sinusitis. Lung apices: Partial visualization of lobar consolidation throughout the left lower lobe and patchy airspace opacities in the left upper lobe, concerning for pneumonia. Tubes, lines and devices: Tracheostomy tube in place, with expected positioning. IMPRESSION: 1. 3.8 x 2.6 x 2.4 cm (TRV x CC x AP) subcutaneous fluid collection in the midline posterior neck soft tissues at the level of C4, highly concerning for abscess. Overlying soft tissue stranding and skin thickening. 2. Partial visualization of lobar consolidation throughout the left lower lobe and patchy airspace opacities in the left upper lobe, concerning for pneumonia. 3. Partial visualization of left maxillary sinus opacification, concerning for sinusitis. 4. Tracheostomy tube in place, with expected positioning. (8) HCAP (healthcare-associated pneumonia) (9) Severe anemia (10) Iron deficiency anemia (11) Ileus (12) Esophagitis (13) Gastric ulcer (14) Acute blood loss anemia (15) Hematuria (16) ATN (acute tubular necrosis) (17) Wound of sacral region (18) Chronic complete quadriplegia (19) COPD (chronic obstructive pulmonary disease) (20) Cholecystitis (21) Diabetes mellitus, type II (22) Seizure disorder (23) Cerebral vascular disease (24) Nosocomial pneumonia (25) Intractable diarrhea (26) Acute and chronic respiratory failure (27) Chronic vegetative state (28) Ventilator dependent (29) Status post tracheostomy (30) Sepsis (31) Feeding by G-tube Steve Franks Jun 28, 2020 12:57
--- NOTE | 2020-06-28 13:54 | Diagnostic Imaging Report ---
Indication: Shortness of breath Technique: One view of the chest Comparison: 06/27/2020 Findings: Retrocardiac/left basilar consolidation persists, may be slightly increased. The heart size is normal. The right lung and bilateral pleural spaces are clear. Tracheostomy again demonstrated. Impression: Stable or slightly increased left basilar/retrocardiac consolidation.
--- NOTE | 2020-06-28 13:57 | Diagnostic Imaging Report ---
Indication: Abdominal distention Technique: Supine view of the abdomen Comparison: 08/09/2017 Findings: The colon is diffusely gas filled, upper limits of normal in caliber. Similar findings are also demonstrated on the previous exam. No definite small bowel distention. There is a right groin central venous catheter. No masses or unusual calcifications Impression: Diffusely gas filled upper limits of normal caliber colon. This is probably baseline for this patient and functional in nature, given similar findings on previous exam.
[2020-06-28] MEDS ORDERED: Potassium Phosphate 20 MM in NS 275 ML IV ONE (14:00)
--- NOTE | 2020-06-28 14:31 | Diagnostic Imaging Report ---
Indication: Abdominal pain Technique: Daniels-scale and duplex images of the upper abdomen were obtained Comparison: 06/22/2019, also CT dated 6 06/26/2019 Findings: Unremarkable inferior vena cava. Gallbladder demonstrates gallstones and tumefactive sludge. No wall thickening or pericholecystic fluid. Sonographic [place]'s sign could not be assessed, patient uncommunicative. Comet tail artifacts are seen in the gallbladder wall, likely indicating cholesterolosis. Common bile duct measures 9 mm in diameter. No intrahepatic biliary ductal dilatation. Liver normal echogenicity, no focal abnormality. Portal vein and hepatic veins are patent. Pancreas is unremarkable. The spleen cannot be visualized, due to overlying bowel gas. Left kidney measures 10.7 cm in length. Right kidney measures 11.3 cm length. Both kidneys demonstrate normal echogenicity. There is no hydronephrosis. Echogenic focus is seen in the lower pole of the right kidney, measuring 5 mm diameter. Previously demonstrated left renal echogenic focus is not well visualized. It is trabeculated. There is trace retained urine. There is a Waddell catheter. There are a few small calcifications are seen in the bladder lumen, possibly attached to the Waddell catheter. Non-aneurysmal abdominal aorta . Impression: Gallstones and gallbladder sludge. Likely gallbladder wall cholesterolosis Negative for dilated bile ducts Nonvisualized spleen due to overlying bowel gas Echogenic bilateral renal foci, probably small calculi demonstrated on recent CT scan. Bladder calculi versus encrustations about Waddell catheter Bladder wall trabeculation, likely indicates chronic lateral obstruction
--- NOTE | 2020-06-28 14:55 | Cardiology Report ---
APPROVED REPORT EKG Measurement Heart [id number] DE 56P [id number] <Conclusion> Sinus tachycardia with short DE Right superior axis deviation Pulmonary disease pattern Abnormal ECG
[2020-06-28 16:00] VITALS: BP 94/60
--- NOTE | 2020-06-28 19:30 | NUR ---
NURSE HAND-OFF REPORT: Important Events on Shift: N Patient Status: full code Diet: NPO Pending Orders: N Pending Results/Labs:N Pending MD notification:N Latest Vital Signs: Temperature 97.9 , Pulse 60 , B/P 94 /60 , Respiratory Rate 12 , O2 SAT 97 , Mechanical Ventilator, O2 Flow Rate 15.0 . Vital Sign Comment: Systolic BP 90s EKG Rhythm: Sinus Rhythm Rhythm change?: N MD Notified?: - MD Response: Latest Fields Fall Score: 70 Fall Risk: High Risk Safety Measures: Call light Within Reach, Bed Alarm Zone 1, Side Rails Side Rails x2, Bed position Low and Locked. Fall Precautions: Yellow Socks Yellow Gown Door Sign Patient Fall Education Report given to MANUEL Bean.
--- NOTE | 2020-06-28 19:30 | NUR ---
Received report from MANUEL Goldman and assumed care of patient.
[2020-06-28 20:00] VITALS: BP 100/69
[2020-06-28] MEDS: Dyna-Hex 2% Top Sol 2oz TOPIC SCH (20:00)
--- NOTE | 2020-06-28 20:45 | NUR ---
Into patient room for assessment and medication administration. Patient dressing (kerlix) behind head is CDI placed by Dr. Franks (per Day RN). Pt stuporous, at baseline. VSS, will continue to monitor.
--- NOTE | 2020-06-28 20:59 | History and Physical Report ---
DATE OF ADMISSION: 06/27/2020 This is the first admission to [facility] of this 49-year-old patient because of sepsis and hypotension. HISTORY OF PRESENT ILLNESS: Patient is a resident of an extended care facility subacute unit where he has been in stable condition for the last few years. He is known to have several chronic medical syndromes, but has been stable on his current medications. On the day of admission, developed fever up to 101.6, tachycardia up to 160, blood pressure up to 90/60. Initial treatment in the facility was IV hydration and initiation of antibiotic, but rapidly patient developed hypoxia, which was irreversible. He was transferred to [facility] ER. In the ER, he was found to be hypotensive and tachycardic with leukocytosis and patient was admitted. In addition to the above, patient was found to have an abscess on the midline at the level of T4-C6. He was started yesterday on Zosyn 3.375 g IV piggyback q.6; however, this morning I was notified that the patient is allergic to cephalosporin. After discussion with the emergency room physician, no sign of reaction to the Zosyn was found and patient remained on Zosyn. Blood culture was taken. After the patient arrived to the floor, vancomycin was added when the blood culture became positive for gram-positive cocci. PAST MEDICAL HISTORY: In 2019, patient had intracerebral hemorrhage. He underwent craniotomy. Remained severely encephalopathic. Developed respiratory failure. He was to be intubated, unable to be weaned, underwent tracheostomy and gastrostomy, and sent to the subacute unit. In addition, patient has seizure disorder for the last 2 years. His last seizure was more than a year ago. He has high blood pressure and diabetes mellitus, which was well controlled. His last HGB A1c was 5.6. Patient is on Lantus insulin 20 units daily plus sliding scale aspart insulin. He has hyperlipidemia for which he is on atorvastatin 10 mg daily, hypovitaminosis D for which he is on 5000 international units daily. He is on levetiracetam 500 b.i.d. In addition, he received ipratropium bromide and albuterol sulfate every 6 hours. FAMILY HISTORY: Noncontributory. SOCIAL HISTORY: He is . He was born in [place]. He has been employed till the incident of his intracerebral hemorrhage. HABITS: Patient does not smoke, drink, or use illicit drugs. REVIEW OF SYSTEMS: Patient is unable to give any information regarding his state of health. PHYSICAL EXAMINATION: VITAL SIGNS: Blood pressure is 106/70, his pulse is 81, respirations are 12, temperature 98.2. HEENT: Eyes were normal. Pupils were round, equal, and reactive to light. Sclerae was white. Conjunctivae were pink. Extraocular movements could not be assessed. Temporal arteries were palpable bilaterally. There was no bilateral temporal wasting. Visual peres to confrontation and neglect sign could not be assessed. ENT, mucous membranes were slightly dehydrated. Auditory canals were clear and tympanic membranes could not be visualized. The oral cavity was not congested. Nasal septum was intact. Soft palate was free of ulcerations. Pharynx, uvula could not be visualized. Tongue was moist, midline, and normally papillated. NECK: Supple. There was no goiter. No mass. No lymphadenopathy. There was no JVD. No bruits. Carotid upstroke was 2+. Tracheostomy site was clean. LUNGS: There were bilateral rhonchi at both bases. HEART: PMI was fifth left intercostal space midclavicular line. There was normal S1 and normal S2. There was no murmur. No arrhythmia. No S3. No S4. No pericardial rub. There was sinus tachycardia on monitor on admission. ABDOMEN: Soft, nontender without organomegaly. There were no masses palpable. Normal bowel sounds without bruits. There was no guarding. No rebound tenderness. No ascites. No hernia. No CVA tenderness. Liver span was 8 cm, mostly nontender. EXTREMITIES: No cyanosis, no clubbing, and no edema. Extremities were warm. NEUROLOGICAL: Reflexes in biceps, triceps, brachioradialis were present. Patellar retinaculum could not be obtained. Plantars were in extension bilaterally. Cranial nerves from II through XII were symmetric and equal. Cerebellar function, there was no tremor. No nystagmus. No extrapyramidal rigidity. Sensory exam to pinprick, cotton touch, position, and motor strength could not be assessed because of patient's clinical condition. LABORATORY AND DIAGNOSTIC DATA: Hemoglobin now is 9.6, hematocrit 31.0, MCV was 91, WBC of 13.7, and platelets of 290. WBC were 15.8 yesterday. His BUN and creatinine is 24 and 1.2 today, they were 58 and 1.9 yesterday. His UA shows 30 to 40 rbc's, wbc's of 40 to 60. He has 4+ proteinuria and 4+ blood. Patient was negative for nitrites. His INR was 1.1. His PTT was 634. IMAGING STUDY: Patient had chest x-ray on admission that showed that patient has left lower lobe pneumonia. CT scan of abdomen and pelvis revealed that patient has gallstones and biliary stone. The gallstone does not impact the common bile duct. The biliary stone did not cause hydronephrosis. Multiple sclerotic lesions were identified on CT scan of the abdomen in the level of T12 in the left acetabulum in the intertrochanteric region of the right femur. There was no evidence of pathological fracture. There was no dislocation, but the condition was suspected for malignancy. CT scan of the neck revealed a mass 3.8 x 2.6 at the level of C4. IMPRESSION: Patient has abscess of neck, left lower lobe pneumonia, and urosepsis. He is now on Zosyn, vancomycin, and improving. Multiple consultants were called to assist in the management of this case that include Infectious Disease specialist, general surgeon, electrical development engineer, and kaiawhina. Repeat laboratory tests will be done in the a.m. Liset Wallace M.D. DR: FRAN JOB#: [id number] CC:
[2020-06-28] MEDS: Levemir Flexpen SUBQ SCH (21:00)
[2020-06-29] VITALS: BP 99/63
[2020-06-29] MEDS: Piperacillin/Tazobactam 3.375 GM in NS 110 ML IVPB SCH ×3 (00:30→17:08)
[2020-06-29] MEDS: Vancomycin 1.25gm Premix q24h IVPB SCH (00:30)
[2020-06-29] MEDS: NovoLOG Insulin Flexpen SUBQ SCH ×4 (00:30→17:59)
--- NOTE | 2020-06-29 00:30 | NUR ---
Assessed patient for midnight assessment. Suctioned, oral care provided, VSS and will continue to monitor patient. Repositioned.
[2020-06-29 04:00] VITALS: BP 101/64
--- NOTE | 2020-06-29 04:10 | NUR ---
Assessed patient for 4am assessment. Bathed and linen changed. No BM this shift thus far. Good urine output. VSS. Repositioned. Will continue to monitor.
[2020-06-29 05:38] LABS: HEMATOCRIT 24.9 % (42.0-52.0); HEMOGLOBIN 7.7 G/DL (14.2-18.0); MEAN CORPUSCULAR VOLUME 91 FL (80-99); PLATELET COUNT 244 K/UL (150-450); RED BLOOD COUNT 2.74 M/UL (4.70-6.10); RED CELL DISTRIBUTION WIDTH 14.8 % (11.6-14.8)
[2020-06-29 06:10] LABS: % IRON SATURATION 38 % (15-50); IRON 52 ug/dL (50-175); TOTAL IRON BINDING CAPACITY 137 ug/dL (250-450)
[2020-06-29 06:18] LABS: ALANINE AMINOTRANSFERASE 28 U/L (12-78); ALBUMIN 2.3 G/DL (3.4-5.0); ALBUMIN/GLOBULIN RATIO 0.5 (1.0-2.7); ALKALINE PHOSPHATASE 56 U/L (46-116); ANION GAP 10 mmol/L (5-15); ASPARTATE AMINO TRANSFERASE 24 U/L (15-37); BILIRUBIN,TOTAL 0.7 MG/DL (0.2-1.0); BLOOD UREA NITROGEN 14 mg/dL (7-18); CALCIUM 8.7 MG/DL (8.5-10.1); CARBON DIOXIDE 25 MMOL/L (21-32); CHLORIDE 118 MMOL/L (98-107); CREATININE 0.8 MG/DL (0.55-1.30); FERRITIN 217 NG/ML (8-388); POTASSIUM 3.2 MMOL/L (3.5-5.1); SODIUM 153 MMOL/L (136-145)
--- NOTE | 2020-06-29 06:25 | Hematology/Onc Progress Note ---
Assessment/Plan Assessment/Plan Imaging: reviewed # New sclerotic osseous lesions concerning for metastases, including a 2.6 cm sclerotic lesion in the T12 vertebral body, a 2.6 cm sclerotic lesion in the left acetabulum, and a 1.3 cm sclerotic lesion in the intertrochanteric right femur. No evidence of pathologic fracture. --> Query for any history of primary malignancy (e.g. prostate cancer or other malignancies). ==> tumor markers have ordered --> PSA 52! --> consider bone scan once improved # Anemia due to chronic disease v gi bleed, hgb downtrending since admission --> last time I saw this patient, hgb was 13.1, this was back in 2018 --> hgb trend 9-->8.1-->6.9->>>9->7.7 --> 2 units prbc for 06/24 --> iv iron x 5 days given, low sat and ferritin relative to inflammatory process # Coagulopathy is likely due to dic --> vit k as as need, ffp as well --> if worsening coagulopathy and bleeding given ffp --> at this time treatment of underlying process # Leukocytosis is likely related to underyling Pna --> also with neck abscess per surgery --> has been started on abx --> now IMPROVEd --> wbc 13 # Left lower lobe consolidation with pNA with infiltrates --> with sepsis poa, is on broad spectrum abx --> on pressors in icu on adm # Chronic cholecystitis s/p cholecystostomy tube in the past # Chronic resp failure vent/trach dependant # Asthma/COPD # HTN # Dm2 # Dementia # CVA s/p vegetative state # Dysphagia s/p G-tube # seizure disorder # SNF resident GREATLY APPRECIATE CONSULTATION. Subjective HEENT: Denies: no symptoms, eye pain, blurred vision, tearing, double vision, ear pain, ear discharge, nose pain, nose congestion, throat pain, throat swelling, mouth pain, mouth swelling, other Cardiovascular: Denies: no symptoms, chest pain, edema, irregular heart rate, lightheadedness, palpitations, syncope, other Respiratory: Denies: no symptoms, cough, shortness of breath, SOB with excertion, SOB at rest, sputum, wheezing, other Gastrointestinal/Abdominal: Denies: no symptoms, abdomen distended, abdominal pain, black stools, tarry stools, blood in stool, constipated, diarrhea, difficulty swallowing, nausea, poor appetite, poor fluid intake, rectal bleeding, vomiting, other Genitourinary: Denies: no symptoms, burning, discharge, frequency, flank pain, hematuria, incontinence, pain, urgency, other Neurologic/Psychiatric: Denies: no symptoms, anxiety, depressed, emotional problems, headache, numbness, paresthesia, pre-existing deficit, seizure, tingling, tremors, weakness, other Endocrine: Denies: no symptoms, excessive sweating, flushing, intolerance to cold, intolerance to heat, increased hunger, increased thirst, increased urine, unexplained weight gain, unexplained weight loss, other Hematologic/Lymphatic: Denies: no symptoms, anemia, easy bleeding, easy bruising, adenopathy, other Allergies: Coded Allergies: CEFTRIAXONE (Unverified Allergy, Unknown, 06/27/20) NO KNOWN DRUG ALLERGIES (Unverified Allergy, Unknown, 06/28/15) Subjective 06/29 labs are noted, no bleeding, meds noted, hgb 7.7 Objective Objective Current Medications Medications (Trade) Dose Ordered Sig/Tony Route PRN Reason Start Time Stop Time Status Last Admin Dose Admin Acetaminophen (Tylenol) 650 mg Q4H PRN GT Temp >100.5 06/27/20 20:00 07/27/20 19:59 Chlorhexidine Gluconate (Kay-Hex 2%) 1 applic DAILY@2000 TOPIC 06/28/20 20:00 09/26/20 19:59 06/28/20 20:00 Dextrose 1,000 ml @ 100 mls/hr Q10H IV 06/28/20 12:45 07/28/20 12:44 06/28/20 23:30 Dextrose (Dextrose 50%) 25 ml Q30M PRN IV Hypoglycemia 06/27/20 17:00 09/25/20 16:59 Dextrose (Dextrose 50%) 50 ml Q30M PRN IV Hypoglycemia 06/27/20 17:00 09/25/20 16:59 Heparin Sodium (Porcine) (Heparin 5000 units/ml) 5,000 units EVERY 12 HOURS SUBQ 06/27/20 21:00 08/11/20 20:59 06/28/20 21:00 Insulin Aspart (NovoLOG) Q6HR SUBQ 06/27/20 18:00 09/25/20 17:59 06/29/20 05:43 Insulin Detemir (Levemir) 20 units Q12HR SUBQ 06/28/20 21:00 09/25/20 20:59 06/28/20 21:00 Midodrine (Pro-Amatine) 10 mg THREE TIMES A DAY ORAL 06/28/20 02:00 09/25/20 15:29 06/28/20 17:21 Ondansetron HCl (Zofran) 4 mg Q4H PRN IVP Nausea & Vomiting 06/27/20 14:45 07/27/20 14:44 Pantoprazole (Protonix) 40 mg Q12HR IVP 06/27/20 21:00 07/27/20 19:59 06/28/20 20:55 Piperacillin Sod/ Tazobactam Sod 3.375 gm/Sodium Chloride 110 ml @ 27.5 mls/hr Q8HR@0000,0800,1600 IVPB 06/27/20 16:00 07/04/20 15:59 06/29/20 00:30 Vancomycin HCl 250 ml @ 166.667 mls/hr Q12H IVPB 06/28/20 12:00 07/03/20 11:59 06/29/20 00:30 Vancomycin HCl (Vanco pharmacy to dose) 1 ea DAILY PRN MISC Per rx protocol 06/28/20 11:00 07/28/20 10:59 Last 24 Hour Vital Signs Date Time Temp Pulse Resp B/P (MAP) Pulse Ox O2 Delivery O2 Flow Rate FiO2 06/29/20 04:00 60 06/29/20 04:00 Mechanical Ventilator 06/29/20 04:00 97.7 70 30 101/64 (76) 100 06/29/20 04:00 40 06/29/20 03:49 61 12 40 06/29/20 00:00 Mechanical Ventilator 06/29/20 00:00 98.1 69 20 99/63 (75) 95 06/29/20 00:00 66 06/28/20 23:45 68 14 40 06/28/20 20:00 40 06/28/20 20:00 97.9 69 14 100/69 (79) 100 06/28/20 20:00 Mechanical Ventilator 06/28/20 20:00 67 06/28/20 19:59 73 13 40 06/28/20 16:00 Mechanical Ventilator 06/28/20 16:00 40 06/28/20 16:00 63 06/28/20 16:00 97.9 60 12 94/60 (71) 97 06/28/20 13:05 63 13 40 06/28/20 12:00 98.2 81 12 106/70 (82) 98 06/28/20 12:00 Mechanical Ventilator 06/28/20 12:00 78 06/28/20 12:00 40 06/28/20 08:00 97.7 75 12 92/60 (71) 98 06/28/20 08:00 Mechanical Ventilator 06/28/20 08:00 76 06/28/20 08:00 40 06/28/20 07:10 80 14 40 06/28/20 05:15 86 14 40 06/28/20 04:00 40 06/28/20 04:00 98.6 89 14 96/56 (69) 98 06/28/20 04:00 Mechanical Ventilator 06/28/20 04:00 88 06/28/20 03:20 85 13 40 06/28/20 00:00 98.8 94 15 98/55 (69) 99 06/28/20 00:00 Mechanical Ventilator 06/28/20 00:00 94 06/27/20 23:10 96 17 40 06/27/20 21:15 75 14 40 06/27/20 20:00 106 06/27/20 20:00 99.1 109 19 116/95 (102) 99 109 06/27/20 20:00 40 06/27/20 20:00 Mechanical Ventilator 06/27/20 19:20 109 13 40 06/27/20 16:38 99.1 06/27/20 16:30 99.1 06/27/20 16:25 125 06/27/20 16:00 Mechanical Ventilator 06/27/20 16:00 101.1 126 23 96/59 (71) 96 126 06/27/20 16:00 40 06/27/20 15:00 120 19 40 06/27/20 12:24 Mechanical Ventilator 06/27/20 11:50 113 06/27/20 11:44 97.9 114 12 97/64 (75) 99 114 06/27/20 11:41 121 24 100 Mechanical Ventilator 40 06/27/20 11:37 121 24 40 06/27/20 11:30 98.0 104 18 100/60 97 Mechanical Ventilator 104 06/27/20 10:37 110 17 105/71 99 06/27/20 09:19 110 17 88/61 99 Trach Collar 15.0 40 06/27/20 07:27 121 17 Endotracheal Tube 15.0 100 06/27/20 07:25 98.5 17 99/69 100 Endotracheal Tube 15.0 100 Intake and Output 06/28/20 06/29/20 19:00 07:00 Intake Total 1973.789 ml 1100 ml Output Total 650 ml 400 ml Balance 1323.789 ml 700 ml Intake Free Water 40 ml 0 ml IV Total 1933.789 ml 1100 ml Output Urine Total 650 ml 400 ml Labs Test 06/27/20 05:15 06/27/20 05:50 06/27/20 08:00 06/28/20 04:15 White Blood Count 15.8 K/UL (4.8-10.8) 13.7 K/UL (4.8-10.8) Red Blood Count 4.78 M/UL (4.70-6.10) 3.40 M/UL (4.70-6.10) Hemoglobin 13.4 G/DL (14.2-18.0) 9.6 G/DL (14.2-18.0) Hematocrit 43.7 % (42.0-52.0) 31.0 % (42.0-52.0) Mean Corpuscular Volume 91 FL (80-99) 91 FL (80-99) Mean Corpuscular Hemoglobin 28.0 PG (27.0-31.0) 28.2 PG (27.0-31.0) Mean Corpuscular Hemoglobin Concent 30.6 G/DL (32.0-36.0) 30.9 G/DL (32.0-36.0) Red Cell Distribution Width 15.0 % (11.6-14.8) 15.1 % (11.6-14.8) Platelet Count 354 K/UL (150-450) 290 K/UL (150-450) Mean Platelet Volume 9.5 FL (6.5-10.1) 9.9 FL (6.5-10.1) Neutrophils (%) (Auto) % (45.0-75.0) 80.9 % (45.0-75.0) Lymphocytes (%) (Auto) % (20.0-45.0) 12.8 % (20.0-45.0) Monocytes (%) (Auto) % (1.0-10.0) 3.7 % (1.0-10.0) Eosinophils (%) (Auto) % (0.0-3.0) 2.1 % (0.0-3.0) Basophils (%) (Auto) % (0.0-2.0) 0.5 % (0.0-2.0) Prothrombin Time 12.0 SEC (9.30-11.50) 12.1 SEC (9.30-11.50) Prothromb Time International Ratio 1.1 (0.9-1.1) 1.1 (0.9-1.1) Activated Partial Thromboplast Time 24 SEC (23-33) 26 SEC (23-33) Sodium Level 151 MMOL/L (136-145) 155 MMOL/L (136-145) Potassium Level 4.7 MMOL/L (3.5-5.1) 3.6 MMOL/L (3.5-5.1) Chloride Level 110 MMOL/L (98-107) 118 MMOL/L (98-107) Carbon Dioxide Level 25 MMOL/L (21-32) 28 MMOL/L (21-32) Anion Gap 16 mmol/L (5-15) 9 mmol/L (5-15) Blood Urea Nitrogen 58 mg/dL (7-18) 24 mg/dL (7-18) Creatinine 1.9 MG/DL (0.55-1.30) 1.2 MG/DL (0.55-1.30) Estimat Glomerular Filtration Rate 37.9 mL/min (>60) > 60 mL/min (>60) Glucose Level 544 MG/DL (74-106) 328 MG/DL (74-106) Lactic Acid Level 5.50 mmol/L (0.4-2.0) 3.70 mmol/L (0.66-2.22) 1.70 mmol/L (0.4-2.0) Calcium Level 9.9 MG/DL (8.5-10.1) 9.3 MG/DL (8.5-10.1) Total Bilirubin 0.5 MG/DL (0.2-1.0) 0.7 MG/DL (0.2-1.0) Aspartate Amino Transf (AST/SGOT) 23 U/L (15-37) 15 U/L (15-37) Alanine Aminotransferase (ALT/SGPT) 52 U/L (12-78) 36 U/L (12-78) Alkaline Phosphatase 90 U/L (46-116) 73 U/L (46-116) Total Creatine Kinase 108 U/L (26-308) 177 U/L (26-308) Creatine Kinase MB < 0.5 NG/ML (0.0-3.6) Creatine Kinase MB Relative Index 0.4 Troponin I 0.007 ng/mL (0.000-0.056) Total Protein 9.1 G/DL (6.4-8.2) 7.8 G/DL (6.4-8.2) Albumin 2.7 G/DL (3.4-5.0) 2.7 G/DL (3.4-5.0) Globulin 6.4 g/dL 5.1 g/dL Albumin/Globulin Ratio 0.4 (1.0-2.7) 0.5 (1.0-2.7) Urine Color Yellow Urine Appearance Slightly cloudy Urine pH 6 (4.5-8.0) Urine Specific [place] 1.015 (1.005-1.035) Urine Protein 4+ (NEGATIVE) Urine Glucose (UA) 1+ (NEGATIVE) Urine Ketones 1+ (NEGATIVE) Urine Blood 4+ (NEGATIVE) Urine Nitrite Negative (NEGATIVE) Urine Bilirubin Negative (NEGATIVE) Urine Urobilinogen 4 MG/DL (0.0-1.0) Urine Leukocyte Esterase 2+ (NEGATIVE) Urine RBC 30-40 /HPF (0 - 0) Urine WBC 40-60 /HPF (0 - 0) Urine Squamous Epithelial Cells Few /LPF (NONE/OCC) Urine Bacteria Many /HPF (NONE) Urine Coarse Granular Casts 0-2 /LPF (NONE) Erythrocyte Sedimentation Rate 122 MM/HR (0-15) Hemoglobin A1c 8.9 % (4.3-6.0) Uric Acid 6.2 MG/DL (2.6-7.2) Phosphorus Level 2.3 MG/DL (2.5-4.9) Magnesium Level 2.5 MG/DL (1.8-2.4) Gamma Glutamyl Transpeptidase 155 U/L (5-85) Lactate Dehydrogenase 113 U/L (81-234) C-Reactive Protein, Quantitative 26.8 mg/dL (0.00-0.90) Pro-B-Type Natriuretic Peptide 195 pg/mL (0-125) Triglycerides Level 395 MG/DL (30-150) Cholesterol Level 88 MG/DL (< 200) LDL Cholesterol 31 mg/dL (<100) HDL Cholesterol 10 MG/DL (40-60) Cholesterol/HDL Ratio 8.8 (3.3-4.4) Amylase Level 34 U/L (25-115) Lipase 75 U/L (73-393) Prostate Specific Antigen 50.24 ng/mL (0.13-4.0) Vitamin B12 Level 290 PG/ML (193-986) Thyroid Stimulating Hormone (TSH) 1.807 uiU/mL (0.358-3.740) Cortisol AM Sample 8.0 UG/DL Test 06/29/20 05:00 White Blood Count 9.0 K/UL (4.8-10.8) Red Blood Count 2.74 M/UL (4.70-6.10) Hemoglobin 7.7 G/DL (14.2-18.0) Hematocrit 24.9 % (42.0-52.0) Mean Corpuscular Volume 91 FL (80-99) Mean Corpuscular Hemoglobin 28.2 PG (27.0-31.0) Mean Corpuscular Hemoglobin Concent 31.0 G/DL (32.0-36.0) Red Cell Distribution Width 14.8 % (11.6-14.8) Platelet Count 244 K/UL (150-450) Mean Platelet Volume 10.4 FL (6.5-10.1) Neutrophils (%) (Auto) % (45.0-75.0) Lymphocytes (%) (Auto) % (20.0-45.0) Monocytes (%) (Auto) % (1.0-10.0) Eosinophils (%) (Auto) % (0.0-3.0) Basophils (%) (Auto) % (0.0-2.0) Sodium Level 153 MMOL/L (136-145) Potassium Level 3.2 MMOL/L (3.5-5.1) Chloride Level 118 MMOL/L (98-107) Carbon Dioxide Level 25 MMOL/L (21-32) Anion Gap 10 mmol/L (5-15) Blood Urea Nitrogen 14 mg/dL (7-18) Creatinine 0.8 MG/DL (0.55-1.30) Estimat Glomerular Filtration Rate > 60 mL/min (>60) Glucose Level 234 MG/DL (74-106) Uric Acid 5.2 MG/DL (2.6-7.2) Calcium Level 8.7 MG/DL (8.5-10.1) Phosphorus Level 3.0 MG/DL (2.5-4.9) Magnesium Level 2.2 MG/DL (1.8-2.4) Iron Level 52 ug/dL (50-175) Total Iron Binding Capacity 137 ug/dL (250-450) Percent Iron Saturation 38 % (15-50) Unsaturated Iron Binding 85 ug/dL (112-346) Ferritin 217 NG/ML (8-388) Total Bilirubin 0.7 MG/DL (0.2-1.0) Aspartate Amino Transf (AST/SGOT) 24 U/L (15-37) Alanine Aminotransferase (ALT/SGPT) 28 U/L (12-78) Alkaline Phosphatase 56 U/L (46-116) C-Reactive Protein, Quantitative 10.7 mg/dL (0.00-0.90) Pro-B-Type Natriuretic Peptide 570 pg/mL (0-125) Total Protein 6.6 G/DL (6.4-8.2) Albumin 2.3 G/DL (3.4-5.0) Globulin 4.3 g/dL Albumin/Globulin Ratio 0.5 (1.0-2.7) Micro Microbiology Date/Time Source Procedure Growth Status 06/28/20 11:00 Sputum Gram Stain - Final Resulted 06/28/20 11:00 Sputum Sputum Culture Pending Resulted Height (Feet): 5 Height (Inches): 8.00 Weight (Pounds): 180 Objective Physical Exam HEENT: normocephalic, bilateral eye PERRL Neck: normal inspection, supple, tracheotomy - site c/d/i ++ vent Respiratory: chest non-tender, lungs clear, normal breath sounds, chest symmetrical, palpation of chest normal Cardiovascular : normal peripheral pulses, regular rate, rhythm Gastrointestinal: normal inspection, non tender, soft, no mass, no guarding, no rebound, ++ feeding tube c/d/i Genitourinary: normal inspection, no CVA tenderness Musculoskeletal: back normal, gait/station normal, normal range of motion, non- tender, no calf tenderness Neurologic: nonverbal Skin: normal color, no darrell GI: ++ Manolo Cervantes MD Jun 29, 2020 06:25
--- NOTE | 2020-06-29 07:05 | NUR ---
RESPIRATORY NOTE: PT received stable on mechanical ventilation with current settings: AC/VC 12, 500,40%, +5. Airway is midline, secure and patent. Vent circuit is secure and out of the way. Alarms are on and audible. No s/s of respiratory distress noted at this time. Will continue to closely monitor.
--- NOTE | 2020-06-29 07:23 | NUR ---
Report given to Lianne who assumed care of patient.
[2020-06-29 08:00] VITALS: BP 101/61
--- NOTE | 2020-06-29 08:23 | Infectious Diseases Prog Note ---
Assessment/Plan 49yo M who p/w: CONS bacteremia UTI 2/2 E.coli Resp distress 2/2 LLL pneumonia Neck abscess? Eval'd by Gen Surg, serous fluid expressed, no pus Febrile to 101.1 Leukocytosis to 15, improved Lymphopenia 2/14 BCx 2/2 +CONS UA 40-60 WBC, UCx >100k E.coli, finley-S COVID PCR p Flu neg MRSA nares neg CXR: Left basilar airspace opacity concerning for pneumonia in the appropriate clinical setting. CT A/P: 1. Left lower lobe consolidation with air bronchograms, concerning for pneumonia. Hazy opacities in the left upper lobe/lingula could represent additional areas of pneumonitis. 2. Trace bilateral pleural effusions. 3. Mild dependent atelectasis in the right lung base. 4. Left-sided nonobstructive nephrolithiasis, with at least three separate 2 mm stones. No radiodense ureteral stones identified. No hydronephrosis or hydroureter. Mild bilateral pelvic stranding. 5. 2 mm stone lying dependently in the urinary bladder lumen. 6. Luminal air-fluid levels throughout small bowel and colon without wall thickening, which may suggest mild enterocolitis and/or diarrheal disease. No evidence of bowel obstruction. 7. New sclerotic osseous lesions concerning for metastases, including a 2.6 cm sclerotic lesion in the T12 vertebral body, a 2.6 cm sclerotic lesion in the left acetabulum, and a 1.3 cm sclerotic lesion in the intertrochanteric right femur. No evidence of pathologic fracture. Query for any history of primary malignancy (e.g. prostate cancer or other malignancies). Neck CT: 1. 3.8 x 2.6 x 2.4 cm (TRV x CC x AP) subcutaneous fluid collection in the midline posterior neck soft tissues at the level of C4, highly concerning for abscess. Overlying soft tissue stranding and skin thickening. / BCx ordered Resp cx p Abd US: Gallstones and gallbladder sludge. Likely gallbladder wall cholesterolosis. Negative for dilated bile ducts. Bladder wall trabeculation, likely indicates chronic lateral obstruction CXR: Stable or slightly increased left basilar/retrocardiac consolidation. Cr 1.2 HTN Asthma COPD Persistent vegetative state CVA DM2 Chronic respiratory failure s/p trach/vent dependent Dysphagia s/p GT [place] resident Plan: Cont vanco IV #3 given CONS bacteremia, neck ?abscess; tentative 7 day course if repeat BCx remain neg Cont empiric Zosyn #3/7 for UTI, pna Ensure byrnes exchanged from admission, d/w RN F/u repeat BCx 06/28, ensure neg F/u 06/28 resp cx F/u COVID PCR Trend drop in Hg 06/27 SP vanco x1 in ED Monitor CBC/CMP Monitor temp curve, hemodynamics Monitor resp status D/w RN Thank you for this consult. [facility] will continue to follow. Subjective Allergies: Coded Allergies: CEFTRIAXONE (Unverified Allergy, Unknown, 06/27/20) NO KNOWN DRUG ALLERGIES (Unverified Allergy, Unknown, 06/28/15) AF NAD on vent 40% PEEP 5 WBC improved to 9 Objective Last 24 Hour Vital Signs Date Time Temp Pulse Resp B/P (MAP) Pulse Ox O2 Delivery O2 Flow Rate FiO2 06/29/20 04:00 60 06/29/20 04:00 Mechanical Ventilator 06/29/20 04:00 97.7 70 30 101/64 (76) 100 06/29/20 04:00 40 06/29/20 03:49 61 12 40 06/29/20 00:00 Mechanical Ventilator 06/29/20 00:00 98.1 69 20 99/63 (75) 95 06/29/20 00:00 66 06/28/20 23:45 68 14 40 06/28/20 20:00 40 06/28/20 20:00 97.9 69 14 100/69 (79) 100 06/28/20 20:00 Mechanical Ventilator 06/28/20 20:00 67 06/28/20 19:59 73 13 40 06/28/20 16:00 Mechanical Ventilator 06/28/20 16:00 40 06/28/20 16:00 63 06/28/20 16:00 97.9 60 12 94/60 (71) 97 06/28/20 13:05 63 13 40 06/28/20 12:00 98.2 81 12 106/70 (82) 98 06/28/20 12:00 Mechanical Ventilator 06/28/20 12:00 78 06/28/20 12:00 40 Height (Feet): 5 Height (Inches): 8.00 Weight (Pounds): 180 Gen: NAD HEENT: NCAT, trach Pulm: BL chest rise Abd: Non-distended, PEG Ext: No c/c/e Skin: No visible rashes Neuro: Awake but not interactive Microbiology Date/Time Source Procedure Growth Status 06/28/20 11:00 Sputum Gram Stain - Final Resulted 06/28/20 11:00 Sputum Sputum Culture Pending Resulted 06/27/20 14:00 Nasal Nares MRSA Culture - Final NO METHICILLIN RESISTANT STAPH AUREUS... Complete 06/27/20 05:50 Urine,Clean Catch Urine Culture - Final Escherichia Coli Complete 06/27/20 05:30 Blood Blood Culture - Preliminary Staphylococcus Sp Coag Neg Resulted 06/27/20 05:15 Blood Blood Culture - Preliminary Staphylococcus Sp Coag Neg Resulted 06/27/20 05:08 Nasal Nares - Final Complete 06/27/20 05:08 Nasal Nares - Final Complete Laboratory Tests Test 06/29/20 05:00 White Blood Count 9.0 K/UL (4.8-10.8) Red Blood Count 2.74 M/UL (4.70-6.10) L Hemoglobin 7.7 G/DL (14.2-18.0) L Hematocrit 24.9 % (42.0-52.0) L Mean Corpuscular Volume 91 FL (80-99) Mean Corpuscular Hemoglobin 28.2 PG (27.0-31.0) Mean Corpuscular Hemoglobin Concent 31.0 G/DL (32.0-36.0) L Red Cell Distribution Width 14.8 % (11.6-14.8) Platelet Count 244 K/UL (150-450) Mean Platelet Volume 10.4 FL (6.5-10.1) H Neutrophils (%) (Auto) % (45.0-75.0) Lymphocytes (%) (Auto) % (20.0-45.0) Monocytes (%) (Auto) % (1.0-10.0) Eosinophils (%) (Auto) % (0.0-3.0) Basophils (%) (Auto) % (0.0-2.0) Neutrophils % (Manual) Pending Lymphocytes % (Manual) Pending Platelet Estimate Pending Platelet Morphology Pending Sodium Level 153 MMOL/L (136-145) H Potassium Level 3.2 MMOL/L (3.5-5.1) L Chloride Level 118 MMOL/L (98-107) H Carbon Dioxide Level 25 MMOL/L (21-32) Anion Gap 10 mmol/L (5-15) Blood Urea Nitrogen 14 mg/dL (7-18) Creatinine 0.8 MG/DL (0.55-1.30) Estimat Glomerular Filtration Rate > 60 mL/min (>60) Glucose Level 234 MG/DL (74-106) H Uric Acid 5.2 MG/DL (2.6-7.2) Calcium Level 8.7 MG/DL (8.5-10.1) Phosphorus Level 3.0 MG/DL (2.5-4.9) Magnesium Level 2.2 MG/DL (1.8-2.4) Iron Level 52 ug/dL (50-175) Total Iron Binding Capacity 137 ug/dL (250-450) L Percent Iron Saturation 38 % (15-50) Unsaturated Iron Binding 85 ug/dL (112-346) L Ferritin 217 NG/ML (8-388) Total Bilirubin 0.7 MG/DL (0.2-1.0) Aspartate Amino Transf (AST/SGOT) 24 U/L (15-37) Alanine Aminotransferase (ALT/SGPT) 28 U/L (12-78) Alkaline Phosphatase 56 U/L (46-116) C-Reactive Protein, Quantitative 10.7 mg/dL (0.00-0.90) H Pro-B-Type Natriuretic Peptide 570 pg/mL (0-125) H Total Protein 6.6 G/DL (6.4-8.2) Albumin 2.3 G/DL (3.4-5.0) L Globulin 4.3 g/dL Albumin/Globulin Ratio 0.5 (1.0-2.7) L Folate 47.2 NG/ML (8.6-58.9) Current Medications Medications (Trade) Dose Ordered Sig/Tony Route PRN Reason Start Time Stop Time Status Last Admin Dose Admin Acetaminophen (Tylenol) 650 mg Q4H PRN GT Temp >100.5 06/27/20 20:00 07/27/20 19:59 Chlorhexidine Gluconate (Kay-Hex 2%) 1 applic DAILY@2000 TOPIC 06/28/20 20:00 09/26/20 19:59 06/28/20 20:00 Dextrose 1,000 ml @ 100 mls/hr Q10H IV 06/28/20 12:45 07/28/20 12:44 06/28/20 23:30 Dextrose (Dextrose 50%) 25 ml Q30M PRN IV Hypoglycemia 06/27/20 17:00 09/25/20 16:59 Dextrose (Dextrose 50%) 50 ml Q30M PRN IV Hypoglycemia 06/27/20 17:00 09/25/20 16:59 Heparin Sodium (Porcine) (Heparin 5000 units/ml) 5,000 units EVERY 12 HOURS SUBQ 06/27/20 21:00 08/11/20 20:59 06/28/20 21:00 Insulin Aspart (NovoLOG) Q6HR SUBQ 06/27/20 18:00 09/25/20 17:59 06/29/20 05:43 Insulin Detemir (Levemir) 20 units Q12HR SUBQ 06/28/20 21:00 09/25/20 20:59 06/28/20 21:00 Midodrine (Pro-Amatine) 10 mg THREE TIMES A DAY ORAL 06/28/20 02:00 09/25/20 15:29 06/28/20 17:21 Ondansetron HCl (Zofran) 4 mg Q4H PRN IVP Nausea & Vomiting 06/27/20 14:45 07/27/20 14:44 Pantoprazole (Protonix) 40 mg Q12HR IVP 06/27/20 21:00 07/27/20 19:59 06/28/20 20:55 Piperacillin Sod/ Tazobactam Sod 3.375 gm/Sodium Chloride 110 ml @ 27.5 mls/hr Q8HR@0000,0800,1600 IVPB 06/27/20 16:00 07/04/20 15:59 06/29/20 00:30 Vancomycin HCl 250 ml @ 166.667 mls/hr Q12H IVPB 06/28/20 12:00 07/03/20 11:59 06/29/20 00:30 Vancomycin HCl ([facility] pharmacy to dose) 1 ea DAILY PRN MISC Per rx protocol 06/28/20 11:00 07/28/20 10:59 Natalia King M.D. Jun 29, 2020 08:23
[2020-06-29] MEDS: Levemir Flexpen SUBQ SCH ×2 (08:26→21:55)
[2020-06-29] MEDS: Midodrine 10mg tab ORAL SCH ×3 (08:27→17:13)
[2020-06-29] MEDS: Heparin 5000 units/ml inj SUBQ SCH ×2 (08:28→21:40)
[2020-06-29] MEDS: Pantoprazole Inj IVP SCH ×2 (08:31→21:00)
--- NOTE | 2020-06-29 11:26 | NUR ---
CASE MANAGEMENT:REVIEW 06/29/20 SI:SEPSIS. PNA. UTI. 97.7 70 30 101/64 100% ON VENT SUPPORT W/40% FIO2 H/H-7.7/24.9 NA+153 PSA+50.24 IS: IVF@125/HR IV VANCOMYCIN Q12 IV ZOSYN Q8HRS MIDODRINE GT TID IV PROTONIX Q12 HEPARIN SQ Q12 : STEP DOWN UNIT DCP: FROM [facility]
[2020-06-29 12:00] VITALS: BP 117/79
--- NOTE | 2020-06-29 12:11 | Nephrology Progress Note ---
Assessment/Plan Problem List: (1) JEFFY (acute kidney injury) (2) Chronic respiratory failure (3) Diabetes mellitus, type II (4) Sepsis (5) Ventilator dependent (6) Severe anemia Assessment Acute renal failure Dehydration Hypernatremia Sepsis, pneumonia, UTI Neck abscess Hyperglycemia Plan June 29: Labs reviewed. IV fluid increased to 125 cc an hour. Levemir dose increased to 25 units every 12 hours. Continue to monitor renal parameters. Albumin bolus repeated. June 28: Labs reviewed. Serum sodium rising. IV changed to D5W. Levemir adjusted to 20 units every 12 hours. Continue to monitor renal parameters and electrolytes. Albumin bolus given. Previously: Hydrate with half-normal saline Monitor renal parameters Midodrine Albumin bolus Monitor renal parameters and electrolytes Avoid nephrotoxic's Per orders Subjective ROS Limited/Unobtainable: Yes Objective Objective Last 24 Hour Vital Signs Date Time Temp Pulse Resp B/P (MAP) Pulse Ox O2 Delivery O2 Flow Rate FiO2 06/29/20 08:38 60 06/29/20 04:00 60 06/29/20 04:00 Mechanical Ventilator 06/29/20 04:00 97.7 70 30 101/64 (76) 100 06/29/20 04:00 40 06/29/20 03:49 61 12 40 06/29/20 00:00 Mechanical Ventilator 06/29/20 00:00 98.1 69 20 99/63 (75) 95 06/29/20 00:00 66 06/28/20 23:45 68 14 40 06/28/20 20:00 40 06/28/20 20:00 97.9 69 14 100/69 (79) 100 06/28/20 20:00 Mechanical Ventilator 06/28/20 20:00 67 06/28/20 19:59 73 13 40 06/28/20 16:00 Mechanical Ventilator 06/28/20 16:00 40 06/28/20 16:00 63 06/28/20 16:00 97.9 60 12 94/60 (71) 97 06/28/20 13:05 63 13 40 Intake and Output 06/28/20 06/29/20 19:00 07:00 Intake Total 1973.789 ml 1100 ml Output Total 650 ml 400 ml Balance 1323.789 ml 700 ml Intake Free Water 40 ml 0 ml IV Total 1933.789 ml 1100 ml Output Urine Total 650 ml 400 ml Current Medications Medications (Trade) Dose Ordered Sig/Tony Route PRN Reason Start Time Stop Time Status Last Admin Dose Admin Acetaminophen (Tylenol) 650 mg Q4H PRN GT Temp >100.5 06/27/20 20:00 07/27/20 19:59 Chlorhexidine Gluconate (Kay-Hex 2%) 1 applic DAILY@2000 TOPIC 06/28/20 20:00 09/26/20 19:59 06/28/20 20:00 Dextrose 1,000 ml @ 125 mls/hr Q8H IV 06/28/20 12:45 07/28/20 12:44 06/29/20 08:25 Dextrose (Dextrose 50%) 25 ml Q30M PRN IV Hypoglycemia 06/27/20 17:00 09/25/20 16:59 Dextrose (Dextrose 50%) 50 ml Q30M PRN IV Hypoglycemia 06/27/20 17:00 09/25/20 16:59 Heparin Sodium (Porcine) (Heparin 5000 units/ml) 5,000 units EVERY 12 HOURS SUBQ 06/27/20 21:00 08/11/20 20:59 06/29/20 08:28 Insulin Aspart (NovoLOG) Q6HR SUBQ 06/27/20 18:00 09/25/20 17:59 06/29/20 05:43 Insulin Detemir (Levemir) 25 units Q12HR SUBQ 06/29/20 21:00 09/25/20 20:59 Midodrine (Pro-Amatine) 10 mg THREE TIMES A DAY ORAL 06/28/20 02:00 09/25/20 15:29 06/29/20 08:27 Ondansetron HCl (Zofran) 4 mg Q4H PRN IVP Nausea & Vomiting 06/27/20 14:45 07/27/20 14:44 Pantoprazole (Protonix) 40 mg Q12HR IVP 06/27/20 21:00 07/27/20 19:59 06/29/20 08:31 Piperacillin Sod/ Tazobactam Sod 3.375 gm/Sodium Chloride 110 ml @ 27.5 mls/hr Q8HR@0000,0800,1600 IVPB 06/27/20 16:00 07/04/20 15:59 06/29/20 08:24 Vancomycin HCl 300 ml @ 150 mls/hr Q12H IVPB 06/29/20 12:15 07/04/20 12:14 Vancomycin HCl ([facility] pharmacy to dose) 1 ea DAILY PRN MISC Per rx protocol 06/28/20 11:00 07/28/20 10:59 Laboratory Tests 06/29/20 05:00: White Blood Count 9.0, Red Blood Count 2.74L, Hemoglobin 7.7L, Hematocrit 24.9L, Mean Corpuscular Volume 91, Mean Corpuscular Hemoglobin 28.2, Mean Corpuscular Hemoglobin Concent 31.0L, Red Cell Distribution Width 14.8, Platelet Count 244, Mean Platelet Volume 10.4H, Neutrophils (%) (Auto) , Lymphocytes (%) (Auto) , Monocytes (%) (Auto) , Eosinophils (%) (Auto) , Basophils (%) (Auto) , Differential Total Cells Counted 100, Neutrophils % (Manual) 80H, Lymphocytes % (Manual) 11L, Monocytes % (Manual) 4, Eosinophils % (Manual) 5H, Basophils % (Manual) 0, Band Neutrophils 0, Platelet Estimate Adequate, Platelet Morphology Normal, Hypochromasia 1+, Anisocytosis 1+, Sodium Level 153H, Potassium Level 3.2L, Chloride Level 118H, Carbon Dioxide Level 25, Anion Gap 10, Blood Urea Nitrogen 14, Creatinine 0.8, Estimat Glomerular Filtration Rate > 60, Glucose Level 234H, Uric Acid 5.2, Calcium Level 8.7, Phosphorus Level 3.0, Magnesium Level 2.2, Iron Level 52, Total Iron Binding Capacity 137L, Percent Iron Saturation 38, Unsaturated Iron Binding 85L, Ferritin 217, Total Bilirubin 0.7, Aspartate Amino Transf (AST/SGOT) 24, Alanine Aminotransferase (ALT/SGPT) 28, Alkaline Phosphatase 56, C-Reactive Protein, Quantitative 10.7H, Pro-B-Type Natriuretic Peptide 570H, Total Protein 6.6, Albumin 2.3L, Globulin 4.3, Albumin/Globulin Ratio 0.5L, Folate 47.2 06/29/20 10:56: Vancomycin Level Trough 13.4H Height (Feet): 5 Height (Inches): 8.00 Weight (Pounds): 180 General Appearance: no apparent distress EENT: other - Trach to vent Cardiovascular: normal rate Respiratory/Chest: decreased breath sounds Abdomen: distended Fouladian,Ricky MD Jun 29, 2020 12:11
[2020-06-29] MEDS: Vancomycin 1.5gm/300ml Premix IVPB SCH (14:20)
--- NOTE | 2020-06-29 14:54 | Diagnostic Imaging Report ---
Indication: Pain, evaluation for metastatic disease Technique: IV administration 23 mCi 99 M technetium MDP. Whole body images only; spot images not obtained due to patient being ventilator dependent. Comparison: None Findings: Abnormal activity is seen in the right left acetabulum, right femoral intertrochanteric region, L5, T12, and at least 2 ribs. There is a Waddell catheter, as well as evidence of some urinary incontinence. Increased facial activity is likely on the basis of sinus disease. Normal renal activity. Tracer is seen within a Waddell catheter. There is evidence of some urinary incontinence Impression: Multiple foci of abnormal activity, as described. Given stated history of suspicion for metastatic disease, findings are suspicious for such.
[2020-06-29 16:00] VITALS: BP 102/68
--- NOTE | 2020-06-29 17:04 | Surgery Progress Note ---
Surgery Progress Note Subjective Additional Comments US noted bone scan noted no n/v Objective Last 24 Hour Vital Signs Date Time Temp Pulse Resp B/P (MAP) Pulse Ox O2 Delivery O2 Flow Rate FiO2 06/29/20 12:22 52 06/29/20 12:00 40 06/29/20 12:00 97.7 66 12 117/79 (92) 100 06/29/20 08:38 60 06/29/20 08:00 40 06/29/20 08:00 98.1 60 15 101/61 (74) 99 06/29/20 04:00 60 06/29/20 04:00 Mechanical Ventilator 06/29/20 04:00 97.7 70 30 101/64 (76) 100 06/29/20 04:00 40 06/29/20 03:49 61 12 40 06/29/20 00:00 Mechanical Ventilator 06/29/20 00:00 98.1 69 20 99/63 (75) 95 06/29/20 00:00 66 06/28/20 23:45 68 14 40 06/28/20 20:00 40 06/28/20 20:00 97.9 69 14 100/69 (79) 100 06/28/20 20:00 Mechanical Ventilator 06/28/20 20:00 67 06/28/20 19:59 73 13 40 I&O Intake and Output 06/28/20 06/29/20 19:00 07:00 Intake Total 1973.789 ml 1100 ml Output Total 650 ml 400 ml Balance 1323.789 ml 700 ml Intake Free Water 40 ml 0 ml IV Total 1933.789 ml 1100 ml Output Urine Total 650 ml 400 ml Dressing: saturated Cardiovascular: RSR Respiratory: decreased breath sounds Abdomen: soft, non-tender, present bowel sounds, non-distended Extremities: no tenderness, no cyanosis Laboratory Tests Test 06/29/20 05:00 06/29/20 10:56 White Blood Count 9.0 K/UL (4.8-10.8) Red Blood Count 2.74 M/UL (4.70-6.10) L Hemoglobin 7.7 G/DL (14.2-18.0) L Hematocrit 24.9 % (42.0-52.0) L Mean Corpuscular Volume 91 FL (80-99) Mean Corpuscular Hemoglobin 28.2 PG (27.0-31.0) Mean Corpuscular Hemoglobin Concent 31.0 G/DL (32.0-36.0) L Red Cell Distribution Width 14.8 % (11.6-14.8) Platelet Count 244 K/UL (150-450) Mean Platelet Volume 10.4 FL (6.5-10.1) H Neutrophils (%) (Auto) % (45.0-75.0) Lymphocytes (%) (Auto) % (20.0-45.0) Monocytes (%) (Auto) % (1.0-10.0) Eosinophils (%) (Auto) % (0.0-3.0) Basophils (%) (Auto) % (0.0-2.0) Differential Total Cells Counted 100 Neutrophils % (Manual) 80 % (45-75) H Lymphocytes % (Manual) 11 % (20-45) L Monocytes % (Manual) 4 % (1-10) Eosinophils % (Manual) 5 % (0-3) H Basophils % (Manual) 0 % (0-2) Band Neutrophils 0 % (0-8) Platelet Estimate Adequate Platelet Morphology Normal Hypochromasia 1+ Anisocytosis 1+ Sodium Level 153 MMOL/L (136-145) H Potassium Level 3.2 MMOL/L (3.5-5.1) L Chloride Level 118 MMOL/L (98-107) H Carbon Dioxide Level 25 MMOL/L (21-32) Anion Gap 10 mmol/L (5-15) Blood Urea Nitrogen 14 mg/dL (7-18) Creatinine 0.8 MG/DL (0.55-1.30) Estimat Glomerular Filtration Rate > 60 mL/min (>60) Glucose Level 234 MG/DL (74-106) H Uric Acid 5.2 MG/DL (2.6-7.2) Calcium Level 8.7 MG/DL (8.5-10.1) Phosphorus Level 3.0 MG/DL (2.5-4.9) Magnesium Level 2.2 MG/DL (1.8-2.4) Iron Level 52 ug/dL (50-175) Total Iron Binding Capacity 137 ug/dL (250-450) L Percent Iron Saturation 38 % (15-50) Unsaturated Iron Binding 85 ug/dL (112-346) L Ferritin 217 NG/ML (8-388) Total Bilirubin 0.7 MG/DL (0.2-1.0) Aspartate Amino Transf (AST/SGOT) 24 U/L (15-37) Alanine Aminotransferase (ALT/SGPT) 28 U/L (12-78) Alkaline Phosphatase 56 U/L (46-116) C-Reactive Protein, Quantitative 10.7 mg/dL (0.00-0.90) H Pro-B-Type Natriuretic Peptide 570 pg/mL (0-125) H Total Protein 6.6 G/DL (6.4-8.2) Albumin 2.3 G/DL (3.4-5.0) L Globulin 4.3 g/dL Albumin/Globulin Ratio 0.5 (1.0-2.7) L Folate 47.2 NG/ML (8.6-58.9) Vancomycin Level Trough 13.4 ug/mL (5.0-12.0) H Plan Problems: (1) UTI (urinary tract infection) (2) Chronic respiratory failure (3) Acute pancreatitis (4) Hypokalemia (5) Decubitus skin ulcer Assessment & Plan: Pt presented on admission with multiple pressure injuries and Moisture Associated Skin damage Buttocks and Bilateral groin. Both earlobes including medial canals noted to have scaly red plaques and and small lesions. Full thickness stage 3 pressure injury posterior neck under collar of trach. Base of wound has 25% slough,75% beefy red .Small amt serosanguineous exudate noted. Borders are macerated. Surrounding skin is clean and dry. Moisture Associated Skin Damage noted to bilateral groin areas,Buttocks and bilateral ischium. Skin is grossly erythematous and denuded with scattered satellite lesions. Full thickness stage 3 sacral pressure injury. Base of wound is 25% necrotic ,30% slough ,otherwise beefy red with small amt serous exudate.Borders are macerated.(L)(L)8.5cm x (W)10cm. Periwound MASD. Full Thickness stage 3 pressure injury R trochanter. Base of wound 80% beefy red ,20% slough. Small amt serous exudate. Borders are macerated(L)3cm x (W)3.2cm. No odor noted.Periwound MASD. Full Thickness stage 3 pressure injury R ischium. Base of wound is 25% necrotic, beefy red with scattered slough. Borders are macerated. Small amt serous exudate noted. No odor noted.(L)5.3cm x (W)3.9cm. Periwound MASD. Full thickness stage 3 pressure injury L Ischium. Base of wound is beefy red and moist. Borders are macerated. Small amt serous exudate noted.(L)4cm x (W)3.2cm x (D)0.2cm. Both heels are pink and easily blanchable. Bilat foot drop noted. Tx.Plan: Cleanse wounds on Buttocks, sacrum, ishium, trochanter with Saline. Apply Therahoney to wounds. Apply Triad Paste periwound to cover erythematous skin. Cover with Optifoam drsgs Daily and prn. Apply Phytoplex Lotion to R and L ears daily and prn. Apply Cavilon Skin Barrier to Both heels. Cover each heel with Optifoam drsg. Change every 7 days and prn. APM/MAICOL Mattress overlay. Reposition at least every 2hours or as tolerated. Off-load heels with pillow. Place pillow between knees. (6) Electrolyte imbalance (7) Neck abscess Assessment & Plan: 49M spontaneously draining midline to left neck abscess. Patient was identified admission with CT scan to have an abscess in the left neck. On evaluation at bedside there is a 3 cm x 1 cm wide by few centimeter deep fluid collection cavity that has been drained since now with just serosangu ineous fluid. Packing dressings applied. Very unfortunate. Will monitor until healing. Thank you for allowing me to participate patient's care packing and dressings going well Oropharynx: Unremarkable. No significant tonsillar enlargement. No peritonsillar abscess. Hypopharynx: Unremarkable. Larynx: Unremarkable. Normal epiglottis. Trachea: Unremarkable. Retropharyngeal space: Unremarkable. Submandibular/parotid glands: Unremarkable. Glands are normal in size. Thyroid: Unremarkable. No enlarged or calcified nodules. Bones/joints: No acute fracture. Soft tissues: 3.8 x 2.6 x 2.4 cm (TRV x CC x AP) subcutaneous fluid collection in the midline posterior neck soft tissues at the level of C4, highly concerning for abscess. Overlying soft tissue stranding and skin thickening. Vasculature: Unremarkable as visualized. Lymph nodes: Unremarkable. No lymphadenopathy. Sinuses: Partial visualization of left maxillary sinus opacification, concerning for sinusitis. Lung apices: Partial visualization of lobar consolidation throughout the left lower lobe and patchy airspace opacities in the left upper lobe, concerning for pneumonia. Tubes, lines and devices: Tracheostomy tube in place, with expected positioning. IMPRESSION: 1. 3.8 x 2.6 x 2.4 cm (TRV x CC x AP) subcutaneous fluid collection in the midline posterior neck soft tissues at the level of C4, highly concerning for abscess. Overlying soft tissue stranding and skin thickening. 2. Partial visualization of lobar consolidation throughout the left lower lobe and patchy airspace opacities in the left upper lobe, concerning for pneumonia. 3. Partial visualization of left maxillary sinus opacification, concerning for sinusitis. 4. Tracheostomy tube in place, with expected positioning. (8) HCAP (healthcare-associated pneumonia) (9) Severe anemia (10) Iron deficiency anemia (11) Ileus (12) Esophagitis (13) Gastric ulcer (14) Acute blood loss anemia (15) Hematuria (16) ATN (acute tubular necrosis) (17) Wound of sacral region Assessment & Plan: Abnormal activity is seen in the right left acetabulum, right femoral intertrochanteric region, L5, T12, and at least 2 ribs. There is a Waddell catheter, as well as evidence of some urinary incontinence. Increased facial activity is likely on the basis of sinus disease. Normal renal activity. Tracer is seen within a Waddell catheter. There is evidence of some urinary incontinence Impression: Multiple foci of abnormal activity, as described. Given stated history of suspicion for metastatic disease, findings are suspicious for such. (18) Chronic complete quadriplegia (19) COPD (chronic obstructive pulmonary disease) (20) Cholecystitis Assessment & Plan: Unremarkable inferior vena cava. Gallbladder demonstrates gallstones and tumefactive sludge. No wall thickening or pericholecystic fluid. Sonographic [place]'s sign could not be assessed, patient uncommunicative. Comet tail art ifacts are seen in the gallbladder wall, likely indicating cholesterolosis. Common bile duct measures 9 mm in diameter. No intrahepatic biliary ductal dilatation. Liver normal echogenicity, no focal abnormality. Portal vein and hepatic veins are patent. Pancreas is unremarkable. The spleen cannot be visualized, due to overlying bowel gas. Left kidney measures 10.7 cm in length. Right kidney measures 11.3 cm length. Both kidneys demonstrate normal echogenicity. There is no hydronephrosis. Echogenic focus is seen in the lower pole of the right kidney, measuring 5 mm diameter. Previously demonstrated left renal echogenic focus is not well visualized. It is trabeculated. There is trace retained urine. There is a Waddell catheter. There are a few small calcifications are seen in the bladder lumen, possibly attached to the Waddell catheter. Non-aneurysmal abdominal aorta . Impression: Gallstones and gallbladder sludge. Likely gallbladder wall cholesterolosis Negative for dilated bile ducts Nonvisualized spleen due to overlying bowel gas Echogenic bilateral renal foci, probably small calculi demonstrated on recent CT scan. Bladder calculi versus encrustations about Waddell catheter Bladder wall trabeculation, likely indicates chronic lateral obstruction (21) Diabetes mellitus, type II (22) Seizure disorder (23) Cerebral vascular disease (24) Nosocomial pneumonia (25) Intractable diarrhea (26) Acute and chronic respiratory failure (27) Chronic vegetative state (28) Ventilator dependent (29) Status post tracheostomy (30) Sepsis (31) Feeding by G-tube Steve Franks Jun 29, 2020 17:04
[2020-06-29] MEDS ORDERED: IPRATROPIU0.2 MG/1 M HHN ×2 (17:10)
[2020-06-29] MEDS ORDERED: CALAZIME TOPIC (17:10)
[2020-06-29] MEDS ORDERED: CRANBERRY450 M5 GT (17:10)
[2020-06-29] MEDS ORDERED: VITAMIN D3125 MCG GT (17:10)
[2020-06-29] MEDS ORDERED: TRADJENTA5 MG GT (17:20)
[2020-06-29] MEDS ORDERED: ALBUTEROL2.5 MG/3 M INH ×2 (17:20)
[2020-06-29] MEDS ORDERED: ATORVASTATIN CA10 MG GT (17:20)
[2020-06-29] MEDS ORDERED: MIRALAX17 G2 ORAL (17:20)
[2020-06-29] MEDS ORDERED: CEPHALEXIN500 MG GT (17:20)
[2020-06-29] MEDS ORDERED: ACETAMINOP160 MG/5 M GT (17:20)
[2020-06-29] MEDS ORDERED: TRIAMCINOLONE A15 G2 TP (17:20)
[2020-06-29] MEDS ORDERED: OMEPRAZOLE20 M2 GT (17:20)
--- NOTE | 2020-06-29 19:21 | General Progress Note ---
Subjective Constitutional: Reports: no symptoms HEENT: Reports: no symptoms Cardiovascular: Reports: no symptoms Respiratory: Reports: no symptoms Gastrointestinal/Abdominal: Reports: no symptoms Genitourinary: Reports: no symptoms Neurologic/Psychiatric: Reports: no symptoms Endocrine: Reports: no symptoms Hematologic/Lymphatic: Reports: no symptoms Allergies: Coded Allergies: CEFTRIAXONE (Unverified Allergy, Unknown, 06/27/20) NO KNOWN DRUG ALLERGIES (Unverified Allergy, Unknown, 06/28/15) Objective Last 24 Hour Vital Signs Date Time Temp Pulse Resp B/P (MAP) Pulse Ox O2 Delivery O2 Flow Rate FiO2 06/29/20 13:00 54 17 40 06/29/20 12:22 52 06/29/20 12:00 40 06/29/20 12:00 97.7 66 12 117/79 (92) 100 06/29/20 08:38 60 06/29/20 08:00 40 06/29/20 08:00 98.1 60 15 101/61 (74) 99 06/29/20 07:05 50 14 40 06/29/20 04:00 60 06/29/20 04:00 Mechanical Ventilator 06/29/20 04:00 97.7 70 30 101/64 (76) 100 06/29/20 04:00 40 06/29/20 03:49 61 12 40 06/29/20 00:00 Mechanical Ventilator 06/29/20 00:00 98.1 69 20 99/63 (75) 95 06/29/20 00:00 66 06/28/20 23:45 68 14 40 06/28/20 20:00 40 06/28/20 20:00 97.9 69 14 100/69 (79) 100 06/28/20 20:00 Mechanical Ventilator 06/28/20 20:00 67 06/28/20 19:59 73 13 40 Intake and Output 06/28/20 06/29/20 19:00 07:00 Intake Total 1973.789 ml 1100 ml Output Total 650 ml 400 ml Balance 1323.789 ml 700 ml Intake Free Water 40 ml 0 ml IV Total 1933.789 ml 1100 ml Output Urine Total 650 ml 400 ml Laboratory Tests 06/29/20 05:00: White Blood Count 9.0, Red Blood Count 2.74L, Hemoglobin 7.7L, Hematocrit 24.9L, Mean Corpuscular Volume 91, Mean Corpuscular Hemoglobin 28.2, Mean Corpuscular Hemoglobin Concent 31.0L, Red Cell Distribution Width 14.8, Platelet Count 244, Mean Platelet Volume 10.4H, Neutrophils (%) (Auto) , Lymphocytes (%) (Auto) , Monocytes (%) (Auto) , Eosinophils (%) (Auto) , Basophils (%) (Auto) , Differential Total Cells Counted 100, Neutrophils % (Manual) 80H, Lymphocytes % (Manual) 11L, Monocytes % (Manual) 4, Eosinophils % (Manual) 5H, Basophils % (Manual) 0, Band Neutrophils 0, Platelet Estimate Adequate, Platelet Morphology Normal, Hypochromasia 1+, Anisocytosis 1+, Sodium Level 153H, Potassium Level 3.2L, Chloride Level 118H, Carbon Dioxide Level 25, Anion Gap 10, Blood Urea Nitrogen 14, Creatinine 0.8, Estimat Glomerular Filtration Rate > 60, Glucose Level 234H, Uric Acid 5.2, Calcium Level 8.7, Phosphorus Level 3.0, Magnesium Level 2.2, Iron Level 52, Total Iron Binding Capacity 137L, Percent Iron Saturation 38, Unsaturated Iron Binding 85L, Ferritin 217, Total Bilirubin 0.7, Aspartate Amino Transf (AST/SGOT) 24, Alanine Aminotransferase (ALT/SGPT) 28, Alkaline Phosphatase 56, C-Reactive Protein, Quantitative 10.7H, Pro-B-Type Natriuretic Peptide 570H, Total Protein 6.6, Albumin 2.3L, Globulin 4.3, Albumin/Globulin Ratio 0.5L, Folate 47.2 06/29/20 10:56: Vancomycin Level Trough 13.4H Height (Feet): 5 Height (Inches): 8.00 Weight (Pounds): 180 General Appearance: no apparent distress EENT: normal ENT inspection Neck: supple Cardiovascular: normal rate, regular rhythm, no gallop/murmur, no JVD Respiratory/Chest: decreased breath sounds, rhonchi - left Abdomen: normal bowel sounds, non tender, soft, no organomegaly, no mass Extremities: non-tender Neurologic: unresponsive Assessment/Plan Status Narrative Patient is afebrile hemodynamically stable without tachycardia his leukocytosis resolved out of concern now when his H&H dropped from 13-7 within 48 hours and platelets are normal as of day 1 followed by bone scan patient was found to have suspicion of metastatic disease the origin of which is unknown no evidence of lung CA was discovered on chest CT and the possibility of prostate cancer will be entertained PSA CEA and alpha-fetoprotein will be ordered while surgical issue of treating somebody in, with chemotherapy will have to be resolved clinically patient appears to be much better repeat laboratory tests will be done in a.. Liset Guerrier MD, MD Jun 29, 2020 19:21
--- NOTE | 2020-06-29 19:30 | NUR ---
NURSE NOTES: Rn received report from day RN. Patient assessed appeared to be comfortable. Patient lying in bed. Patient on mechanical ventilator with settings of ac-12 tv-500 FIO2-40% and PEEP of %. Patient o2 saturations 98%. Patient vitals stable. Orders reviewed. RN will continue to monitor.
[2020-06-29 20:00] VITALS: BP 102/68
[2020-06-29] MEDS: Dyna-Hex 2% Top Sol 2oz TOPIC SCH (20:00)
[2020-06-30] VITALS: BP 99/62
[2020-06-30] MEDS: Piperacillin/Tazobactam 3.375 GM in NS 110 ML IVPB SCH ×4 (00:14→23:35)
[2020-06-30] MEDS: NovoLOG Insulin Flexpen SUBQ SCH ×5 (00:15→23:52)
[2020-06-30] MEDS: Vancomycin 1.5gm/300ml Premix IVPB SCH ×3 (00:15→23:35)
--- NOTE | 2020-06-30 01:30 | NUR ---
NURSE NOTES: Patient resting at this time. patient vitals stable. Patient trinity which is is norm. Patient bathed and repositioned for comfort. RN will continue to monitor.
[2020-06-30 04:00] VITALS: BP 114/64
--- NOTE | 2020-06-30 06:52 | Hematology/Onc Progress Note ---
Assessment/Plan Assessment/Plan Imaging: reviewed # New sclerotic osseous lesions concerning for metastases, including a 2.6 cm sclerotic lesion in the T12 vertebral body, a 2.6 cm sclerotic lesion in the left acetabulum, and a 1.3 cm sclerotic lesion in the intertrochanteric right femur. No evidence of pathologic fracture. --> Query for any history of primary malignancy (e.g. prostate cancer or other malignancies). ==> tumor markers have ordered --> PSA 52-->36 --> Bone scan --> Multiple foci of abnormal activity, as described. Given stated history of suspicion for metastatic disease, findings are suspicious for such --> consider biopsy in future, currently not critical # Anemia due to chronic disease v gi bleed, hgb downtrending since admission --> last time I saw this patient, hgb was 13.1, this was back in 2018 --> hgb trend 9-->8.1-->6.9->>>9->7.7 --> 2 units prbc for 06/24 --> iv iron x 5 days given, low sat and ferritin relative to inflammatory process # Coagulopathy is likely due to dic --> vit k as as need, ffp as well --> if worsening coagulopathy and bleeding given ffp --> at this time treatment of underlying process # Leukocytosis is likely related to underyling Pna --> also with neck abscess per surgery --> has been started on abx --> now IMPROVEd --> wbc 13 # Left lower lobe consolidation with pNA with infiltrates --> with sepsis poa, is on broad spectrum abx --> on pressors in icu on adm # Chronic cholecystitis s/p cholecystostomy tube in the past # Chronic resp failure vent/trach dependant # Asthma/COPD # HTN # Dm2 # Dementia # CVA s/p vegetative state # Dysphagia s/p G-tube # seizure disorder # SNF resident GREATLY APPRECIATE CONSULTATION. Subjective HEENT: Denies: no symptoms, eye pain, blurred vision, tearing, double vision, ear pain, ear discharge, nose pain, nose congestion, throat pain, throat swelling, mouth pain, mouth swelling, other Cardiovascular: Denies: no symptoms, chest pain, edema, irregular heart rate, lightheadedness, palpitations, syncope, other Neurologic/Psychiatric: Denies: no symptoms, anxiety, depressed, emotional problems, headache, numbness, paresthesia, pre-existing deficit, seizure, tingling, tremors, weakness, other Endocrine: Denies: no symptoms, excessive sweating, flushing, intolerance to cold, intolerance to heat, increased hunger, increased thirst, increased urine, unexplained weight gain, unexplained weight loss, other Hematologic/Lymphatic: Denies: no symptoms, anemia, easy bleeding, easy bruising, adenopathy, other Allergies: Coded Allergies: CEFTRIAXONE (Unverified Allergy, Unknown, 06/27/20) NO KNOWN DRUG ALLERGIES (Unverified Allergy, Unknown, 06/28/15) Subjective 06/29 labs are noted, no bleeding, meds noted, hgb 7.7 06/30 meds noted, no bleeding, hgb/cbc is pending Objective Objective Current Medications Medications (Trade) Dose Ordered Sig/Tony Route PRN Reason Start Time Stop Time Status Last Admin Dose Admin Acetaminophen (Tylenol) 650 mg Q4H PRN GT Temp >100.5 06/27/20 20:00 07/27/20 19:59 Chlorhexidine Gluconate (Kay-Hex 2%) 1 applic DAILY@2000 TOPIC 06/28/20 20:00 09/26/20 19:59 06/29/20 20:00 Dextrose 1,000 ml @ 125 mls/hr Q8H IV 06/28/20 12:45 07/28/20 12:44 06/30/20 04:15 Dextrose (Dextrose 50%) 25 ml Q30M PRN IV Hypoglycemia 06/27/20 17:00 09/25/20 16:59 Dextrose (Dextrose 50%) 50 ml Q30M PRN IV Hypoglycemia 06/27/20 17:00 09/25/20 16:59 Heparin Sodium (Porcine) (Heparin 5000 units/ml) 5,000 units EVERY 12 HOURS SUBQ 06/27/20 21:00 08/11/20 20:59 06/29/20 21:40 Insulin Aspart (NovoLOG) Q6HR SUBQ 06/27/20 18:00 09/25/20 17:59 06/30/20 05:00 Insulin Detemir (Levemir) 25 units Q12HR SUBQ 06/29/20 21:00 09/25/20 20:59 06/29/20 21:55 Midodrine (Pro-Amatine) 10 mg THREE TIMES A DAY ORAL 06/28/20 02:00 09/25/20 15:29 06/29/20 17:13 Ondansetron HCl (Zofran) 4 mg Q4H PRN IVP Nausea & Vomiting 06/27/20 14:45 07/27/20 14:44 Pantoprazole (Protonix) 40 mg Q12HR IVP 06/27/20 21:00 07/27/20 19:59 06/29/20 21:00 Piperacillin Sod/ Tazobactam Sod 3.375 gm/Sodium Chloride 110 ml @ 27.5 mls/hr Q8HR@0000,0800,1600 IVPB 06/27/20 16:00 07/04/20 15:59 06/30/20 00:14 Vancomycin HCl 300 ml @ 150 mls/hr Q12H IVPB 06/29/20 12:15 07/04/20 12:14 06/30/20 00:15 Vancomycin HCl (Vanco pharmacy to dose) 1 ea DAILY PRN MISC Per rx protocol 06/28/20 11:00 07/28/20 10:59 Last 24 Hour Vital Signs Date Time Temp Pulse Resp B/P (MAP) Pulse Ox O2 Delivery O2 Flow Rate FiO2 06/30/20 04:00 40 06/30/20 04:00 98.9 56 18 114/64 (81) 100 06/30/20 04:00 62 06/30/20 04:00 Mechanical Ventilator 06/30/20 03:30 72 22 40 06/30/20 00:00 40 06/30/20 00:00 98.2 53 18 99/62 (74) 100 06/30/20 00:00 Mechanical Ventilator 06/30/20 00:00 53 06/29/20 23:05 54 20 40 06/29/20 20:30 54 17 40 06/29/20 20:00 48 06/29/20 20:00 98.8 62 16 102/68 (79) 98 06/29/20 20:00 Mechanical Ventilator 06/29/20 16:00 Mechanical Ventilator 06/29/20 16:00 54 06/29/20 16:00 98.8 62 16 102/68 (79) 98 06/29/20 16:00 40 06/29/20 13:00 54 17 40 06/29/20 12:22 52 06/29/20 12:00 40 06/29/20 12:00 97.7 66 12 117/79 (92) 100 06/29/20 12:00 Mechanical Ventilator 06/29/20 08:38 60 06/29/20 08:00 40 06/29/20 08:00 98.1 60 15 101/61 (74) 99 06/29/20 08:00 Mechanical Ventilator 06/29/20 07:05 50 14 40 06/29/20 04:00 60 06/29/20 04:00 Mechanical Ventilator 06/29/20 04:00 97.7 70 30 101/64 (76) 100 06/29/20 04:00 40 06/29/20 03:49 61 12 40 06/29/20 00:00 Mechanical Ventilator 06/29/20 00:00 98.1 69 20 99/63 (75) 95 06/29/20 00:00 66 06/28/20 23:45 68 14 40 06/28/20 20:00 40 06/28/20 20:00 97.9 69 14 100/69 (79) 100 06/28/20 20:00 Mechanical Ventilator 06/28/20 20:00 67 06/28/20 19:59 73 13 40 06/28/20 16:00 Mechanical Ventilator 06/28/20 16:00 40 06/28/20 16:00 63 06/28/20 16:00 97.9 60 12 94/60 (71) 97 06/28/20 13:05 63 13 40 06/28/20 12:00 98.2 81 12 106/70 (82) 98 06/28/20 12:00 Mechanical Ventilator 06/28/20 12:00 78 06/28/20 12:00 40 06/28/20 08:00 97.7 75 12 92/60 (71) 98 06/28/20 08:00 Mechanical Ventilator 06/28/20 08:00 76 06/28/20 08:00 40 06/28/20 07:10 80 14 40 Intake and Output 06/29/20 06/30/20 19:00 07:00 Intake Total 60 ml 100 ml Output Total 550 ml 600 ml Balance -490 ml -500 ml Intake Free Water 60 ml 100 ml Output Urine Total 550 ml 600 ml # Bowel Movements 4 Labs Test 06/27/20 08:00 06/28/20 04:15 06/29/20 05:00 06/29/20 10:56 Lactic Acid Level 3.70 mmol/L (0.66-2.22) 1.70 mmol/L (0.4-2.0) White Blood Count 13.7 K/UL (4.8-10.8) 9.0 K/UL (4.8-10.8) Red Blood Count 3.40 M/UL (4.70-6.10) 2.74 M/UL (4.70-6.10) Hemoglobin 9.6 G/DL (14.2-18.0) 7.7 G/DL (14.2-18.0) Hematocrit 31.0 % (42.0-52.0) 24.9 % (42.0-52.0) Mean Corpuscular Volume 91 FL (80-99) 91 FL (80-99) Mean Corpuscular Hemoglobin 28.2 PG (27.0-31.0) 28.2 PG (27.0-31.0) Mean Corpuscular Hemoglobin Concent 30.9 G/DL (32.0-36.0) 31.0 G/DL (32.0-36.0) Red Cell Distribution Width 15.1 % (11.6-14.8) 14.8 % (11.6-14.8) Platelet Count 290 K/UL (150-450) 244 K/UL (150-450) Mean Platelet Volume 9.9 FL (6.5-10.1) 10.4 FL (6.5-10.1) Neutrophils (%) (Auto) 80.9 % (45.0-75.0) % (45.0-75.0) Lymphocytes (%) (Auto) 12.8 % (20.0-45.0) % (20.0-45.0) Monocytes (%) (Auto) 3.7 % (1.0-10.0) % (1.0-10.0) Eosinophils (%) (Auto) 2.1 % (0.0-3.0) % (0.0-3.0) Basophils (%) (Auto) 0.5 % (0.0-2.0) % (0.0-2.0) Erythrocyte Sedimentation Rate 122 MM/HR (0-15) Prothrombin Time 12.1 SEC (9.30-11.50) Prothromb Time International Ratio 1.1 (0.9-1.1) Activated Partial Thromboplast Time 26 SEC (23-33) Sodium Level 155 MMOL/L (136-145) 153 MMOL/L (136-145) Potassium Level 3.6 MMOL/L (3.5-5.1) 3.2 MMOL/L (3.5-5.1) Chloride Level 118 MMOL/L (98-107) 118 MMOL/L (98-107) Carbon Dioxide Level 28 MMOL/L (21-32) 25 MMOL/L (21-32) Anion Gap 9 mmol/L (5-15) 10 mmol/L (5-15) Blood Urea Nitrogen 24 mg/dL (7-18) 14 mg/dL (7-18) Creatinine 1.2 MG/DL (0.55-1.30) 0.8 MG/DL (0.55-1.30) Estimat Glomerular Filtration Rate > 60 mL/min (>60) > 60 mL/min (>60) Glucose Level 328 MG/DL (74-106) 234 MG/DL (74-106) Hemoglobin A1c 8.9 % (4.3-6.0) Uric Acid 6.2 MG/DL (2.6-7.2) 5.2 MG/DL (2.6-7.2) Calcium Level 9.3 MG/DL (8.5-10.1) 8.7 MG/DL (8.5-10.1) Phosphorus Level 2.3 MG/DL (2.5-4.9) 3.0 MG/DL (2.5-4.9) Magnesium Level 2.5 MG/DL (1.8-2.4) 2.2 MG/DL (1.8-2.4) Total Bilirubin 0.7 MG/DL (0.2-1.0) 0.7 MG/DL (0.2-1.0) Gamma Glutamyl Transpeptidase 155 U/L (5-85) Aspartate Amino Transf (AST/SGOT) 15 U/L (15-37) 24 U/L (15-37) Alanine Aminotransferase (ALT/SGPT) 36 U/L (12-78) 28 U/L (12-78) Alkaline Phosphatase 73 U/L (46-116) 56 U/L (46-116) Lactate Dehydrogenase 113 U/L (81-234) Total Creatine Kinase 177 U/L (26-308) C-Reactive Protein, Quantitative 26.8 mg/dL (0.00-0.90) 10.7 mg/dL (0.00-0.90) Pro-B-Type Natriuretic Peptide 195 pg/mL (0-125) 570 pg/mL (0-125) Total Protein 7.8 G/DL (6.4-8.2) 6.6 G/DL (6.4-8.2) Albumin 2.7 G/DL (3.4-5.0) 2.3 G/DL (3.4-5.0) Globulin 5.1 g/dL 4.3 g/dL Albumin/Globulin Ratio 0.5 (1.0-2.7) 0.5 (1.0-2.7) Triglycerides Level 395 MG/DL (30-150) Cholesterol Level 88 MG/DL (< 200) LDL Cholesterol 31 mg/dL (<100) HDL Cholesterol 10 MG/DL (40-60) Cholesterol/HDL Ratio 8.8 (3.3-4.4) Amylase Level 34 U/L (25-115) Lipase 75 U/L (73-393) Prostate Specific Antigen 50.24 ng/mL (0.13-4.0) Vitamin B12 Level 290 PG/ML (193-986) Thyroid Stimulating Hormone (TSH) 1.807 uiU/mL (0.358-3.740) Cortisol AM Sample 8.0 UG/DL Differential Total Cells Counted 100 Neutrophils % (Manual) 80 % (45-75) Lymphocytes % (Manual) 11 % (20-45) Monocytes % (Manual) 4 % (1-10) Eosinophils % (Manual) 5 % (0-3) Basophils % (Manual) 0 % (0-2) Band Neutrophils 0 % (0-8) Platelet Estimate Adequate Platelet Morphology Normal Hypochromasia 1+ Anisocytosis 1+ Iron Level 52 ug/dL (50-175) Total Iron Binding Capacity 137 ug/dL (250-450) Percent Iron Saturation 38 % (15-50) Unsaturated Iron Binding 85 ug/dL (112-346) Ferritin 217 NG/ML (8-388) Folate 47.2 NG/ML (8.6-58.9) Vancomycin Level Trough 13.4 ug/mL (5.0-12.0) Test 06/30/20 03:25 Prostate Specific Antigen 31.61 ng/mL (0.13-4.0) Height (Feet): 5 Height (Inches): 8.00 Weight (Pounds): 180 Objective Physical Exam HEENT: normocephalic, bilateral eye PERRL Neck: normal inspection, supple, tracheotomy - site c/d/i ++ vent Respiratory: chest non-tender, lungs clear, normal breath sounds, chest symmetrical, palpation of chest normal Cardiovascular : normal peripheral pulses, regular rate, rhythm Gastrointestinal: normal inspection, non tender, soft, no mass, no guarding, no rebound, ++ feeding tube c/d/i Genitourinary: normal inspection, no CVA tenderness Musculoskeletal: back normal, gait/station normal, normal range of motion, non- tender, no calf tenderness Neurologic: nonverbal Skin: normal color, no darrell GI: ++ Manolo Cervantes MD Jun 30, 2020 06:52
--- NOTE | 2020-06-30 07:09 | NUR ---
NURSE HAND-OFF REPORT: Important Events on Shift: Patient Status: Diet: Pending Orders: Pending Results/Labs: Pending MD notification: Latest Vital Signs: Temperature 98.9 , Pulse 56 , B/P 114 /64 , Respiratory Rate 18 , O2 SAT 100 , Mechanical Ventilator, O2 Flow Rate 15.0 . Vital Sign Comment: EKG Rhythm: Sinus Bradycardia Rhythm change?: N MD Notified?: - MD Response: Latest Fields Fall Score: 50 Fall Risk: High Risk Safety Measures: Call light Within Reach, Bed Alarm Zone 1, Side Rails Side Rails x2, Bed position Low and Locked. Fall Precautions: Yellow Socks Yellow Gown Door Sign Patient Fall Education Report given to Lianne Guzman
[2020-06-30 08:00] VITALS: BP 100/65
--- NOTE | 2020-06-30 08:30 | Infectious Diseases Prog Note ---
Assessment/Plan 49yo M who p/w: CONS bacteremia UTI 2/2 E.coli Resp distress 2/2 LLL pneumonia Neck abscess? Eval'd by Gen Surg, serous fluid expressed, no pus Febrile to 101.1 Leukocytosis to 15, improved Lymphopenia 2/14 BCx 2/2 +CONS UA 40-60 WBC, UCx >100k E.coli, finley-S COVID PCR neg Flu neg MRSA nares neg CXR: Left basilar airspace opacity concerning for pneumonia in the appropriate clinical setting. CT A/P: 1. Left lower lobe consolidation with air bronchograms, concerning for pneumonia. Hazy opacities in the left upper lobe/lingula could represent additional areas of pneumonitis. 2. Trace bilateral pleural effusions. 3. Mild dependent atelectasis in the right lung base. 4. Left-sided nonobstructive nephrolithiasis, with at least three separate 2 mm stones. No radiodense ureteral stones identified. No hydronephrosis or hydroureter. Mild bilateral pelvic stranding. 5. 2 mm stone lying dependently in the urinary bladder lumen. 6. Luminal air-fluid levels throughout small bowel and colon without wall thickening, which may suggest mild enterocolitis and/or diarrheal disease. No evidence of bowel obstruction. 7. New sclerotic osseous lesions concerning for metastases, including a 2.6 cm sclerotic lesion in the T12 vertebral body, a 2.6 cm sclerotic lesion in the left acetabulum, and a 1.3 cm sclerotic lesion in the intertrochanteric right femur. No evidence of pathologic fracture. Query for any history of primary malignancy (e.g. prostate cancer or other malignancies). Neck CT: 1. 3.8 x 2.6 x 2.4 cm (TRV x CC x AP) subcutaneous fluid collection in the midline posterior neck soft tissues at the level of C4, highly concerning for abscess. Overlying soft tissue stranding and skin thickening. 2/ BCx NTD Resp cx GNRs Abd US: Gallstones and gallbladder sludge. Likely gallbladder wall cholesterolosis. Negative for dilated bile ducts. Bladder wall trabeculation, likely indicates chronic lateral obstruction CXR: Stable or slightly increased left basilar/retrocardiac consolidation. Cr 1.2 Possible metastatic CA 2/16 NM bone scan: Findings: Abnormal activity is seen in the right left acetabulum, right femoral intertrochanteric region, L5, T12, and at least 2 ribs. Impression: Multiple foci of abnormal activity, as described. Given stated history of suspicion for metastatic disease, findings are suspicious for such. HTN Asthma COPD Persistent vegetative state CVA DM2 Chronic respiratory failure s/p trach/vent dependent Dysphagia s/p GT [place] resident Plan: Cont vanco IV #4 given CONS bacteremia, neck ?abscess; tentative 7 day course if repeat BCx remain neg Cont empiric Zosyn #4/7 for UTI, pna F/u repeat BCx 06/28, ensure neg F/u 06/28 resp cx Trend drop in Hg Monitor CBC/CMP Monitor temp curve, hemodynamics Monitor resp status D/w RN Thank you for this consult. [facility] will continue to follow. Subjective Allergies: Coded Allergies: CEFTRIAXONE (Unverified Allergy, Unknown, 06/27/20) NO KNOWN DRUG ALLERGIES (Unverified Allergy, Unknown, 06/28/15) AF NAD on vent 40% PEEP 5 WBC 7.7 BP stable after albumin yesterday Objective Last 24 Hour Vital Signs Date Time Temp Pulse Resp B/P (MAP) Pulse Ox O2 Delivery O2 Flow Rate FiO2 06/30/20 04:00 40 06/30/20 04:00 98.9 56 18 114/64 (81) 100 06/30/20 04:00 62 06/30/20 04:00 Mechanical Ventilator 06/30/20 03:30 72 22 40 06/30/20 00:00 40 06/30/20 00:00 98.2 53 18 99/62 (74) 100 06/30/20 00:00 Mechanical Ventilator 06/30/20 00:00 53 06/29/20 23:05 54 20 40 06/29/20 20:30 54 17 40 06/29/20 20:00 48 06/29/20 20:00 98.8 62 16 102/68 (79) 98 06/29/20 20:00 Mechanical Ventilator 06/29/20 16:00 Mechanical Ventilator 06/29/20 16:00 54 06/29/20 16:00 98.8 62 16 102/68 (79) 98 06/29/20 16:00 40 06/29/20 13:00 54 17 40 06/29/20 12:22 52 06/29/20 12:00 40 06/29/20 12:00 97.7 66 12 117/79 (92) 100 06/29/20 12:00 Mechanical Ventilator 06/29/20 08:38 60 Height (Feet): 5 Height (Inches): 8.00 Weight (Pounds): 180 Gen: NAD HEENT: NCAT, trach Pulm: BL chest rise Abd: Non-distended, PEG Ext: No c/c/e Skin: No visible rashes Neuro: Awake but not interactive Microbiology Date/Time Source Procedure Growth Status 06/28/20 11:00 Sputum Gram Stain - Final Resulted 06/28/20 11:00 Sputum Sputum Culture Pending Resulted 06/27/20 14:00 Rectum VRE Culture - Final Enterococcus Faecalis - Vre Complete 06/27/20 14:00 Nasal Nares MRSA Culture - Final NO METHICILLIN RESISTANT STAPH AUREUS... Complete Laboratory Tests Test 06/29/20 10:56 06/30/20 03:25 Vancomycin Level Trough 13.4 ug/mL (5.0-12.0) H Alpha Fetoprotein Pending Carcinoembryonic Antigen Pending CA 19-9 Antigen Pending Prostate Specific Antigen 31.61 ng/mL (0.13-4.0) H Current Medications Medications (Trade) Dose Ordered Sig/Tony Route PRN Reason Start Time Stop Time Status Last Admin Dose Admin Acetaminophen (Tylenol) 650 mg Q4H PRN GT Temp >100.5 06/27/20 20:00 07/27/20 19:59 Chlorhexidine Gluconate (Kay-Hex 2%) 1 applic DAILY@2000 TOPIC 06/28/20 20:00 09/26/20 19:59 06/29/20 20:00 Dextrose 1,000 ml @ 125 mls/hr Q8H IV 06/28/20 12:45 07/28/20 12:44 06/30/20 04:15 Dextrose (Dextrose 50%) 25 ml Q30M PRN IV Hypoglycemia 06/27/20 17:00 09/25/20 16:59 Dextrose (Dextrose 50%) 50 ml Q30M PRN IV Hypoglycemia 06/27/20 17:00 09/25/20 16:59 Heparin Sodium (Porcine) (Heparin 5000 units/ml) 5,000 units EVERY 12 HOURS SUBQ 06/27/20 21:00 08/11/20 20:59 06/29/20 21:40 Insulin Aspart (NovoLOG) Q6HR SUBQ 06/27/20 18:00 09/25/20 17:59 06/30/20 05:00 Insulin Detemir (Levemir) 25 units Q12HR SUBQ 06/29/20 21:00 09/25/20 20:59 06/29/20 21:55 Midodrine (Pro-Amatine) 10 mg THREE TIMES A DAY ORAL 06/28/20 02:00 09/25/20 15:29 06/29/20 17:13 Ondansetron HCl (Zofran) 4 mg Q4H PRN IVP Nausea & Vomiting 06/27/20 14:45 07/27/20 14:44 Pantoprazole (Protonix) 40 mg Q12HR IVP 06/27/20 21:00 07/27/20 19:59 06/29/20 21:00 Piperacillin Sod/ Tazobactam Sod 3.375 gm/Sodium Chloride 110 ml @ 27.5 mls/hr Q8HR@0000,0800,1600 IVPB 06/27/20 16:00 07/04/20 15:59 06/30/20 00:14 Vancomycin HCl 300 ml @ 150 mls/hr Q12H IVPB 06/29/20 12:15 07/04/20 12:14 06/30/20 00:15 Vancomycin HCl (Vanco pharmacy to dose) 1 ea DAILY PRN MISC Per rx protocol 06/28/20 11:00 07/28/20 10:59 Natalia King M.D. Jun 30, 2020 08:30
[2020-06-30] MEDS: Midodrine 10mg tab ORAL SCH ×2 (08:48→12:52)
[2020-06-30] MEDS: Pantoprazole Inj IVP SCH (08:48)
[2020-06-30] MEDS: Levemir Flexpen SUBQ SCH ×2 (08:50→20:52)
[2020-06-30 09:58] LABS: BASOPHILS % (AUTO) 0.9 % (0.0-2.0); HEMATOCRIT 29.1 % (42.0-52.0); HEMOGLOBIN 8.9 G/DL (14.2-18.0); LYMPHOCYTES % (AUTO) 22.2 % (20.0-45.0); MEAN CORPUSCULAR VOLUME 90 FL (80-99); NEUTROPHILS % (AUTO) 65.9 % (45.0-75.0); PLATELET COUNT 239 K/UL (150-450); RED BLOOD COUNT 3.24 M/UL (4.70-6.10); RED CELL DISTRIBUTION WIDTH 14.6 % (11.6-14.8); WHITE BLOOD COUNT 7.7 K/UL (4.8-10.8)
[2020-06-30] MEDS: Heparin 5000 units/ml inj SUBQ SCH ×2 (10:35→20:53)
[2020-06-30 10:37] LABS: ALANINE AMINOTRANSFERASE 30 U/L (12-78); ALBUMIN 2.6 G/DL (3.4-5.0); ALBUMIN/GLOBULIN RATIO 0.6 (1.0-2.7); ALKALINE PHOSPHATASE 58 U/L (46-116); ANION GAP 10 mmol/L (5-15); ASPARTATE AMINO TRANSFERASE 23 U/L (15-37); BILIRUBIN,TOTAL 0.8 MG/DL (0.2-1.0); BLOOD UREA NITROGEN 8 mg/dL (7-18); CALCIUM 8.9 MG/DL (8.5-10.1); CARBON DIOXIDE 24 MMOL/L (21-32); CHLORIDE 115 MMOL/L (98-107); CREATININE 0.9 MG/DL (0.55-1.30); PHOSPHORUS 3.1 MG/DL (2.5-4.9); POTASSIUM 3.4 MMOL/L (3.5-5.1); SODIUM 149 MMOL/L (136-145)
[2020-06-30 12:00] VITALS: BP 97/58
--- NOTE | 2020-06-30 12:18 | NUR ---
CASE MANAGEMENT:REVIEW 06/30/20 SI:SEPSIS. PNA. UTI. TRACH/VENT / GTUBE DEPENDENT 98.1 50 16 100/65 100% ON VENT SUPPORT W/40% FIO2 H/H-8.9/29.1 NA+149 K-3.4 IS: IVF@125/HR IV VANCOMYCIN Q12 IV ZOSYN Q8HRS MIDODRINE GT TID IV PROTONIX Q12 HEPARIN SQ Q12 : STEP DOWN UNIT DCP: FROM [facility]
--- NOTE | 2020-06-30 12:32 | Surgery Progress Note ---
Surgery Progress Note Subjective Additional Comments no acute events resting comfortable no n/v labs noted exam stable Objective Last 24 Hour Vital Signs Date Time Temp Pulse Resp B/P (MAP) Pulse Ox O2 Delivery O2 Flow Rate FiO2 06/30/20 08:00 98.1 61 16 100/65 (77) 100 06/30/20 08:00 40 06/30/20 08:00 50 06/30/20 04:00 40 06/30/20 04:00 98.9 56 18 114/64 (81) 100 06/30/20 04:00 62 06/30/20 04:00 Mechanical Ventilator 06/30/20 03:30 72 22 40 06/30/20 00:00 40 06/30/20 00:00 98.2 53 18 99/62 (74) 100 06/30/20 00:00 Mechanical Ventilator 06/30/20 00:00 53 06/29/20 23:05 54 20 40 06/29/20 20:30 54 17 40 06/29/20 20:00 48 06/29/20 20:00 98.8 62 16 102/68 (79) 98 06/29/20 20:00 Mechanical Ventilator 06/29/20 16:00 Mechanical Ventilator 06/29/20 16:00 54 06/29/20 16:00 98.8 62 16 102/68 (79) 98 06/29/20 16:00 40 06/29/20 13:00 54 17 40 I&O Intake and Output 06/29/20 06/30/20 19:00 07:00 Intake Total 1185 ml 100 ml Output Total 550 ml 600 ml Balance 635 ml -500 ml Intake Free Water 60 ml 100 ml IV Total 1125 ml Output Urine Total 550 ml 600 ml # Bowel Movements 2 4 Dressing: saturated Cardiovascular: RSR Respiratory: decreased breath sounds Abdomen: soft, flat, non-tender, present bowel sounds, non-distended Extremities: no edema, no tenderness, no cyanosis Laboratory Tests Test 06/30/20 03:25 06/30/20 09:50 Alpha Fetoprotein Pending Carcinoembryonic Antigen Pending CA 19-9 Antigen Pending Prostate Specific Antigen 31.61 ng/mL (0.13-4.0) H White Blood Count 7.7 K/UL (4.8-10.8) Red Blood Count 3.24 M/UL (4.70-6.10) L Hemoglobin 8.9 G/DL (14.2-18.0) L Hematocrit 29.1 % (42.0-52.0) L Mean Corpuscular Volume 90 FL (80-99) Mean Corpuscular Hemoglobin 27.6 PG (27.0-31.0) Mean Corpuscular Hemoglobin Concent 30.6 G/DL (32.0-36.0) L Red Cell Distribution Width 14.6 % (11.6-14.8) Platelet Count 239 K/UL (150-450) Mean Platelet Volume 10.1 FL (6.5-10.1) Neutrophils (%) (Auto) 65.9 % (45.0-75.0) Lymphocytes (%) (Auto) 22.2 % (20.0-45.0) Monocytes (%) (Auto) 6.0 % (1.0-10.0) Eosinophils (%) (Auto) 5.0 % (0.0-3.0) H Basophils (%) (Auto) 0.9 % (0.0-2.0) Sodium Level 149 MMOL/L (136-145) H Potassium Level 3.4 MMOL/L (3.5-5.1) L Chloride Level 115 MMOL/L (98-107) H Carbon Dioxide Level 24 MMOL/L (21-32) Anion Gap 10 mmol/L (5-15) Blood Urea Nitrogen 8 mg/dL (7-18) Creatinine 0.9 MG/DL (0.55-1.30) Estimat Glomerular Filtration Rate > 60 mL/min (>60) Glucose Level 215 MG/DL (74-106) H Calcium Level 8.9 MG/DL (8.5-10.1) Phosphorus Level 3.1 MG/DL (2.5-4.9) Magnesium Level 2.0 MG/DL (1.8-2.4) Total Bilirubin 0.8 MG/DL (0.2-1.0) Aspartate Amino Transf (AST/SGOT) 23 U/L (15-37) Alanine Aminotransferase (ALT/SGPT) 30 U/L (12-78) Alkaline Phosphatase 58 U/L (46-116) Total Protein 7.0 G/DL (6.4-8.2) Albumin 2.6 G/DL (3.4-5.0) L Globulin 4.4 g/dL Albumin/Globulin Ratio 0.6 (1.0-2.7) L Plan Problems: (1) UTI (urinary tract infection) (2) Chronic respiratory failure (3) Acute pancreatitis (4) Hypokalemia (5) Decubitus skin ulcer Assessment & Plan: Pt presented on admission with multiple pressure injuries and Moisture Associated Skin damage Buttocks and Bilateral groin. Both earlobes including medial canals noted to have scaly red plaques and and small lesions. Full thickness stage 3 pressure injury posterior neck under collar of trach. Base of wound has 25% slough,75% beefy red .Small amt serosanguineous exudate noted. Borders are macerated. Surrounding skin is clean and dry. Moisture Associated Skin Damage noted to bilateral groin areas,Buttocks and bilateral ischium. Skin is grossly erythematous and denuded with scattered satellite lesions. Full thickness stage 3 sacral pressure injury. Base of wound is 25% necrotic ,30% slough ,otherwise beefy red with small amt serous exudate.Borders are macerated.(L)(L)8.5cm x (W)10cm. Periwound MASD. Full Thickness stage 3 pressure injury R trochanter. Base of wound 80% beefy red ,20% slough. Small amt serous exudate. Borders are macerated(L)3cm x (W)3.2cm. No odor noted.Periwound MASD. Full Thickness stage 3 pressure injury R ischium. Base of wound is 25% necrotic, beefy red with scattered slough. Borders are macerated. Small amt serous exudate noted. No odor noted.(L)5.3cm x (W)3.9cm. Periwound MASD. Full thickness stage 3 pressure injury L Ischium. Base of wound is beefy red and moist. Borders are macerated. Small amt serous exudate noted.(L)4cm x (W)3.2cm x (D)0.2cm. Both heels are pink and easily blanchable. Bilat foot drop noted. Tx.Plan: Cleanse wounds on Buttocks, sacrum, ishium, trochanter with Saline. Apply Therahoney to wounds. Apply Triad Paste periwound to cover erythematous skin. Cover with Optifoam drsgs Daily and prn. Apply Phytoplex Lotion to R and L ears daily and prn. Apply Cavilon Skin Barrier to Both heels. Cover each heel with Optifoam drsg. Change every 7 days and prn. APM/MAICOL Mattress overlay. Reposition at least every 2hours or as tolerated. Off-load heels with pillow. Place pillow between knees. (6) Electrolyte imbalance (7) Neck abscess Assessment & Plan: 49M spontaneously draining midline to left neck abscess. Tom baker was identified admission with CT scan to have an abscess in the left neck. On evaluation at bedside there is a 3 cm x 1 cm wide by few centimeter deep fluid collection cavity that has been drained since now with just serosanguineous fluid. Packing dressings applied. Very unfortunate. Will monitor until healing. Thank you for allowing me to participate patient's care packing and dressings going well Oropharynx: Unremarkable. No significant tonsillar enlargement. No peritonsillar abscess. Hypopharynx: Unremarkable. Larynx: Unremarkable. Normal epiglottis. Trachea: Unremarkable. Retropharyngeal space: Unremarkable. Submandibular/parotid glands: Unremarkable. Glands are normal in size. Thyroid: Unremarkable. No enlarged or calcified nodules. Bones/joints: No acute fracture. Soft tissues: 3.8 x 2.6 x 2.4 cm (TRV x CC x AP) subcutaneous fluid collection in the midline posterior neck soft tissues at the level of C4, highly concerning for abscess. Overlying soft tissue stranding and skin thickening. Vasculature: Unremarkable as visualized. Lymph nodes: Unremarkable. No lymphadenopathy. Sinuses: Partial visualization of left maxillary sinus opacification, concerning for sinusitis. Lung apices: Partial visualization of lobar consolidation throughout the left lower lobe and patchy airspace opacities in the left upper lobe, concerning for pneumonia. Tubes, lines and devices: Tracheostomy tube in place, with expected positioning. IMPRESSION: 1. 3.8 x 2.6 x 2.4 cm (TRV x CC x AP) subcutaneous fluid collection in the midline posterior neck soft tissues at the level of C4, highly concerning for abscess. Overlying soft tissue stranding and skin thickening. 2. Partial visualization of lobar consolidation throughout the left lower lobe and patchy airspace opacities in the left upper lobe, concerning for pneumonia. 3. Partial visualization of left maxillary sinus opacification, concerning for sinusitis. 4. Tracheostomy tube in place, with expected positioning. (8) HCAP (healthcare-associated pneumonia) (9) Severe anemia (10) Iron deficiency anemia (11) Ileus (12) Esophagitis (13) Gastric ulcer (14) Acute blood loss anemia (15) Hematuria (16) ATN (acute tubular necrosis) (17) Wound of sacral region Assessment & Plan: Abnormal activity is seen in the right left acetabulum, right femoral intertrochanteric region, L5, T12, and at least 2 ribs. There is a Waddell catheter, as well as evidence of some urinary incontinence. Increased facial activity is likely on the basis of sinus disease. Normal renal activity. Tracer is seen within a Waddell catheter. There is evidence of some urinary incontinence Impression: Multiple foci of abnormal activity, as described. Given stated history of suspicion for metastatic disease, findings are suspicious for such. (18) Chronic complete quadriplegia (19) COPD (chronic obstructive pulmonary disease) (20) Cholecystitis Assessment & Plan: Unremarkable inferior vena cava. Gallbladder demonstrates gallstones and tumefactive sludge. No wall thickening or pericholecystic fluid. Sonographic [place]'s sign could not be assessed, patient uncommunicative. Comet tail artifacts are seen in the gallbladder wall, likely indicating cholesterolosis. Common bile duct measures 9 mm in diameter. No intrahepatic biliary ductal dilatation. Liver normal echogenicity, no focal abnormality. Portal vein and hepatic veins are patent. Pancreas is unremarkable. The spleen cannot be visualized, due to overlying bowel gas. Left kidney measures 10.7 cm in length. Right kidney me asures 11.3 cm length. Both kidneys demonstrate normal echogenicity. There is no hydronephrosis. Echogenic focus is seen in the lower pole of the right kidney, measuring 5 mm diameter. Previously demonstrated left renal echogenic focus is not well visualized. It is trabeculated. There is trace retained urine. There is a Waddell catheter. There are a few small calcifications are seen in the bladder lumen, possibly attached to the Waddell catheter. Non-aneurysmal abdominal aorta . Impression: Gallstones and gallbladder sludge. Likely gallbladder wall cholesterolosis Negative for dilated bile ducts Nonvisualized spleen due to overlying bowel gas Echogenic bilateral renal foci, probably small calculi demonstrated on recent CT scan. Bladder calculi versus encrustations about Waddell catheter Bladder wall trabeculation, likely indicates chronic lateral obstruction (21) Diabetes mellitus, type II (22) Seizure disorder (23) Cerebral vascular disease (24) Nosocomial pneumonia (25) Intractable diarrhea (26) Acute and chronic respiratory failure (27) Chronic vegetative state (28) Ventilator dependent (29) Status post tracheostomy (30) Sepsis (31) Feeding by G-tube Steve Franks Jun 30, 2020 12:32
--- NOTE | 2020-06-30 13:47 | NUR ---
0720: Received report from MANUEL Means. Pt remains trached and on ventilator. Pt legs and arms contracted. Will ocassionally shake. Pt does open eyes spontaneously and looks around. Pt remains bradycardic. 1300: Called Dr. Luevano following pt HR dropping to 30's. stated he would speak to Dr. Majano. also stated it was ok to start feeding pt. Dietary called however was told that they were gone for the day. Will reattempt tomorrow. All other needs addressed at this time. Will continue to monitor closely.
--- NOTE | 2020-06-30 14:12 | Diagnostic Imaging Report ---
Indication: Reason For Exam: MASS Technique: 2 views of the left ribs Comparison: none Findings: There is a tracheostomy. No acute fracture. No pneumothorax. Impression: No acute process
--- NOTE | 2020-06-30 14:14 | Nephrology Progress Note ---
Assessment/Plan Problem List: (1) JEFFY (acute kidney injury) (2) Chronic respiratory failure (3) Diabetes mellitus, type II (4) Sepsis (5) Ventilator dependent (6) Severe anemia Assessment Acute renal failure Dehydration Hypernatremia Sepsis, pneumonia, UTI Neck abscess Hyperglycemia Plan June 30: Labs reviewed. IV fluid decreased to 75 cc an hour. Serum sodium improved. Low potassium replaced. Continue per consultants. Will stop midodrine due to bradycardia. Albumin bolus given. June 29: Labs reviewed. IV fluid increased to 125 cc an hour. Levemir dose increased to 25 units every 12 hours. Continue to monitor renal parameters. Albumin bolus repeated. June 28: Labs reviewed. Serum sodium rising. IV changed to D5W. Levemir adjusted to 20 units every 12 hours. Continue to monitor renal parameters and electrolytes. Albumin bolus given. Previously: Hydrate with half-normal saline Monitor renal parameters Midodrine Albumin bolus Monitor renal parameters and electrolytes Avoid nephrotoxic's Per orders Subjective ROS Limited/Unobtainable: Yes Objective Objective Last 24 Hour Vital Signs Date Time Temp Pulse Resp B/P (MAP) Pulse Ox O2 Delivery O2 Flow Rate FiO2 06/30/20 12:00 40 06/30/20 12:00 97.9 48 13 97/58 (71) 100 06/30/20 12:00 Mechanical Ventilator 06/30/20 12:00 46 06/30/20 08:00 98.1 61 16 100/65 (77) 100 06/30/20 08:00 Mechanical Ventilator 06/30/20 08:00 40 06/30/20 08:00 50 06/30/20 04:00 40 06/30/20 04:00 98.9 56 18 114/64 (81) 100 06/30/20 04:00 62 06/30/20 04:00 Mechanical Ventilator 06/30/20 03:30 72 22 40 06/30/20 00:00 40 06/30/20 00:00 98.2 53 18 99/62 (74) 100 06/30/20 00:00 Mechanical Ventilator 06/30/20 00:00 53 06/29/20 23:05 54 20 40 06/29/20 20:30 54 17 40 06/29/20 20:00 48 06/29/20 20:00 98.8 62 16 102/68 (79) 98 06/29/20 20:00 Mechanical Ventilator 06/29/20 16:00 Mechanical Ventilator 06/29/20 16:00 54 06/29/20 16:00 98.8 62 16 102/68 (79) 98 06/29/20 16:00 40 Intake and Output 06/29/20 06/30/20 19:00 07:00 Intake Total 1185 ml 225 ml Output Total 550 ml 600 ml Balance 635 ml -375 ml Intake Free Water 60 ml 100 ml IV Total 1125 ml 125 ml Output Urine Total 550 ml 600 ml # Bowel Movements 2 4 Current Medications Medications (Trade) Dose Ordered Sig/Tony Route PRN Reason Start Time Stop Time Status Last Admin Dose Admin Acetaminophen (Tylenol) 650 mg Q4H PRN GT Temp >100.5 06/27/20 20:00 07/27/20 19:59 Chlorhexidine Gluconate (Kay-Hex 2%) 1 applic DAILY@2000 TOPIC 06/28/20 20:00 09/26/20 19:59 06/29/20 20:00 Dextrose 1,000 ml @ 125 mls/hr Q8H IV 06/28/20 12:45 07/28/20 12:44 06/30/20 08:49 Dextrose (Dextrose 50%) 25 ml Q30M PRN IV Hypoglycemia 06/27/20 17:00 09/25/20 16:59 Dextrose (Dextrose 50%) 50 ml Q30M PRN IV Hypoglycemia 06/27/20 17:00 09/25/20 16:59 Famotidine (Pepcid I.v.) 20 mg Q12HR IVP 06/30/20 21:00 07/30/20 20:59 Heparin Sodium (Porcine) (Heparin 5000 units/ml) 5,000 units EVERY 12 HOURS SUBQ 06/27/20 21:00 08/11/20 20:59 06/30/20 10:35 Insulin Aspart (NovoLOG) Q6HR SUBQ 06/27/20 18:00 09/25/20 17:59 06/30/20 12:47 Insulin Detemir (Levemir) 25 units Q12HR SUBQ 06/29/20 21:00 09/25/20 20:59 06/30/20 08:50 Midodrine (Pro-Amatine) 10 mg THREE TIMES A DAY ORAL 06/28/20 02:00 09/25/20 15:29 06/30/20 12:52 Ondansetron HCl (Zofran) 4 mg Q4H PRN IVP Nausea & Vomiting 06/27/20 14:45 07/27/20 14:44 Piperacillin Sod/ Tazobactam Sod 3.375 gm/Sodium Chloride 110 ml @ 27.5 mls/hr Q8HR@0000,0800,1600 IVPB 06/27/20 16:00 07/04/20 15:59 06/30/20 08:48 Vancomycin HCl 300 ml @ 150 mls/hr Q12H IVPB 06/29/20 12:15 07/04/20 12:14 06/30/20 12:49 Vancomycin HCl (Vanco pharmacy to dose) 1 ea DAILY PRN MISC Per rx protocol 06/28/20 11:00 07/28/20 10:59 Laboratory Tests 06/30/20 03:25: Alpha Fetoprotein [Pending], Carcinoembryonic Antigen [Pending], CA 19-9 Antigen [Pending], Prostate Specific Antigen 31.61H 06/30/20 09:50: White Blood Count 7.7, Red Blood Count 3.24L, Hemoglobin 8.9L, Hematocrit 29.1L, Mean Corpuscular Volume 90, Mean Corpuscular Hemoglobin 27.6, Mean Corpuscular Hemoglobin Concent 30.6L, Red Cell Distribution Width 14.6, Platelet Count 239, Mean Platelet Volume 10.1, Neutrophils (%) (Auto) 65.9, Lymphocytes (%) (Auto) 22.2, Monocytes (%) (Auto) 6.0, Eosinophils (%) (Auto) 5.0H, Basophils (%) (Auto) 0.9, Sodium Level 149H, Potassium Level 3.4L, Chloride Level 115H, Carbon Dioxide Level 24, Anion Gap 10, Blood Urea Nitrogen 8, Creatinine 0.9, Estimat Glomerular Filtration Rate > 60, Glucose Level 215H, Calcium Level 8.9, Phosphorus Level 3.1, Magnesium Level 2.0, Total Bilirubin 0.8, Aspartate Amino Transf (AST/SGOT) 23, Alanine Aminotransferase (ALT/SGPT) 30, Alkaline Phosphatase 58, Total Protein 7.0, Albumin 2.6L, Globulin 4.4, Albumin/Globulin Ratio 0.6L Height (Feet): 5 Height (Inches): 8.00 Weight (Pounds): 180 General Appearance: no apparent distress EENT: other - Trach to vent Cardiovascular: bradycardia Respiratory/Chest: decreased breath sounds Abdomen: distended Ricky Green MD Jun 30, 2020 14:14
--- NOTE | 2020-06-30 14:19 | Diagnostic Imaging Report ---
Indication: Pain Technique: One view of the pelvis, 2 views of the right hip Comparison: none Findings: There is a central venous catheter is in the right common femoral vein. No acute fracture. No dislocation. The joint spaces are preserved. There is considerable bowel gas. This could obscure bony detail. The joint spaces are preserved Impression: No acute process Right groin central venous catheter
[2020-06-30 16:00] VITALS: BP 112/65
--- NOTE | 2020-06-30 17:30 | NUR ---
Cardiology at bedside. No new orders.
--- NOTE | 2020-06-30 19:26 | NUR ---
NURSE NOTES: Received report from MANUEL Abdalla. Pt is lying in bed in semi fowlers and is obtunded. No SOB or acute distress noted. Pt is tolerating vent setting of AC 12, TV 500, FiO2 40%, and PEEP of 5 with a saturation of 98%. Pt is on cardiac monitoring and showing sinus rhythm @ 80. Pt has a G-tube which is intact and patent with no feeding attached because pt is NPO. Pt has a R femoral PICC line TLC that is intact and running D5W @ 75cc/hr. Waddell catheter is intact and patent and draining talia urine. No pain noted. Bed is locked and in lowest position with side rails x3 and bed alarm on. Call light placed within reach. Will continue with the plan of care.
[2020-06-30 20:00] VITALS: BP 107/60
[2020-06-30] MEDS: Dyna-Hex 2% Top Sol 2oz TOPIC SCH (20:50)
--- NOTE | 2020-06-30 21:03 | NUR ---
NURSE NOTES: Pt's linens changed along with the dressing for wounds after the pt has been cleaned up. Pt was suctioned and oral care completed.
--- NOTE | 2020-06-30 23:44 | Consultation ---
DATE OF CONSULTATION: 06/30/2020 CARDIOLOGY CONSULTATION CONSULTING PHYSICIAN: Xiang Majano MD REFERRING PHYSICIAN: Liset Wallace MD REASON: Bradycardia. HISTORY OF PRESENT ILLNESS: This is an unfortunate male, age 49 who resides at a subacute nursing facility and has encephalopathy due to prior intracerebral hemorrhage with craniotomy and chronic respiratory failure with tracheostomy. He presented to the hospital on 06/27/2020 with fever due to sepsis and shock. On admission, he was tachycardic. Since admission, he was treated for a respiratory infection, neck abscess, and ileus. Of note, his heart rate parameters have been decreasing over the past few days. Today, he has maintained sinus bradycardic episodes in the high 30s and low 40s. He is bedbound and on a ventilator and asymptomatic. Blood pressure parameters have remained stable. PAST MEDICAL HISTORY: As outlined above. ALLERGIES: None. CURRENT MEDICATIONS: Reviewed. Of note, none of the current medications have any negative chronotropic potential. PHYSICAL EXAMINATION: VITAL SIGNS: Blood pressure 97/58, heart rate 46, respirations 13 earlier, now blood pressure 112/65, heart rate 49, respirations 17, afebrile, temperature 97.9. HEENT: Trach secretions thick. LUNGS: With coarse breath sounds. CARDIAC: Regular. Slow rate. ABDOMEN: Distended, but soft. G-tube intact. EXTREMITIES: Trace edema. LABORATORY DATA: White count 7.7, hemoglobin 8.9. Potassium 3.4, sodium 149, chloride 115, bicarb 24, BUN 8, creatinine 0.9. Calcium is normal. PSA is 31. IMPRESSION: Asymptomatic sinus bradycardia. Doubt any underlying sinus node disease in view of appropriate presenting tachycardia in the setting of sepsis and shock. Probable increased vagal tone due to acute GI process precipitating current bradycardia. The patient is bedbound and is not at risk of syncope. RECOMMENDATIONS: 1. Observation. 2. Hydration with hypotonic fluids for dehydration. 3. Antimicrobials ventilator support. 4. ABG has been requested and does not show any signs of CO2 narcosis. 5. Atropine can be kept at bedside. 6. We will follow. Xiang Majano M.D. DR: AUGUSTUS/SD JOB#: [id number] CC:
[2020-07-01] VITALS: BP 107/69
--- NOTE | 2020-07-01 | NUR ---
NURSE NOTES: PM care done along with suctioning and oral care. Pt's ekg monitor tech changed after not showing on the monitor.
--- NOTE | 2020-07-01 00:09 | General Progress Note ---
Subjective Constitutional: Reports: no symptoms HEENT: Reports: no symptoms Cardiovascular: Reports: no symptoms Respiratory: Reports: no symptoms Gastrointestinal/Abdominal: Reports: no symptoms Genitourinary: Reports: no symptoms Neurologic/Psychiatric: Reports: no symptoms Endocrine: Reports: no symptoms Hematologic/Lymphatic: Reports: no symptoms Allergies: Coded Allergies: CEFTRIAXONE (Unverified Allergy, Unknown, 06/27/20) NO KNOWN DRUG ALLERGIES (Unverified Allergy, Unknown, 06/28/15) Objective Last 24 Hour Vital Signs Date Time Temp Pulse Resp B/P (MAP) Pulse Ox O2 Delivery O2 Flow Rate FiO2 06/30/20 22:45 59 14 30 06/30/20 20:00 40 06/30/20 20:00 Mechanical Ventilator 06/30/20 20:00 47 06/30/20 20:00 98.5 51 18 107/60 (76) 100 06/30/20 19:24 43 12 40 06/30/20 16:00 40 06/30/20 16:00 49 06/30/20 16:00 97.9 49 17 112/65 (81) 100 06/30/20 16:00 Mechanical Ventilator 06/30/20 15:47 51 21 40 06/30/20 12:00 40 06/30/20 12:00 97.9 48 13 97/58 (71) 100 06/30/20 12:00 Mechanical Ventilator 06/30/20 12:00 46 06/30/20 11:30 47 27 40 06/30/20 08:00 98.1 61 16 100/65 (77) 100 06/30/20 08:00 Mechanical Ventilator 06/30/20 08:00 40 06/30/20 08:00 50 06/30/20 07:26 55 19 40 06/30/20 04:00 40 06/30/20 04:00 98.9 56 18 114/64 (81) 100 06/30/20 04:00 62 06/30/20 04:00 Mechanical Ventilator 06/30/20 03:30 72 22 40 Intake and Output 06/30/20 07/01/20 19:00 07:00 Intake Total 1475 ml Output Total 1500 ml Balance -25 ml Intake Free Water 100 ml IV Total 1375 ml Output Urine Total 1500 ml Laboratory Tests 06/30/20 03:25: Alpha Fetoprotein [Pending], Carcinoembryonic Antigen [Pending], CA 19-9 Antigen [Pending], Prostate Specific Antigen 31.61H 06/30/20 09:50: White Blood Count 7.7, Red Blood Count 3.24L, Hemoglobin 8.9L, Hematocrit 29.1L, Mean Corpuscular Volume 90, Mean Corpuscular Hemoglobin 27.6, Mean Corpuscular Hemoglobin Concent 30.6L, Red Cell Distribution Width 14.6, Platelet Count 239, Mean Platelet Volume 10.1, Neutrophils (%) (Auto) 65.9, Lymphocytes (%) (Auto) 22.2, Monocytes (%) (Auto) 6.0, Eosinophils (%) (Auto) 5.0H, Basophils (%) (Auto) 0.9, Sodium Level 149H, Potassium Level 3.4L, Chloride Level 115H, Carbon Dioxide Level 24, Anion Gap 10, Blood Urea Nitrogen 8, Creatinine 0.9, Estimat Glomerular Filtration Rate > 60, Glucose Level 215H, Calcium Level 8.9, Phosphorus Level 3.1, Magnesium Level 2.0, Total Bilirubin 0.8, Aspartate Amino Transf (AST/SGOT) 23, Alanine Aminotransferase (ALT/SGPT) 30, Alkaline Phosphatase 58, Total Protein 7.0, Albumin 2.6L, Globulin 4.4, Albumin/Globulin Ratio 0.6L 06/30/20 17:48: Arterial Blood pH 7.410, Arterial Blood Partial Pressure CO2 31.8L, Arterial Blood Partial Pressure O2 146.2H, Arterial Blood HCO3 19.7L, Arterial Blood Oxygen Saturation 98.6, Arterial Blood Base Excess -4.3L, Donald Test Positive 06/30/20 22:50: Vancomycin Level Trough 20.2H Height (Feet): 5 Height (Inches): 8.00 Weight (Pounds): 180 General Appearance: WD/WN, no apparent distress, lethargic EENT: normal ENT inspection Neck: supple Cardiovascular: bradycardia Respiratory/Chest: lungs clear, normal breath sounds, no respiratory distress, no accessory muscle use Abdomen: non tender, soft, no organomegaly, no mass Extremities: non-tender Neurologic: unresponsive Assessment/Plan Status Narrative Patient is awake and alert afebrile hemodynamically stable his blood pressure is well controlled with a laboratory test his hyponatremia is improving he did found multiple bony lesion that involves the rib the acetabulum right hip L4 and L5 work-up done yesterday reveal that PSA has increased from 25-50 of positive malignancy in addition patient developed bradycardia during the day while awake between 30-40 surgery consult was called to assist in the management of this of this case.all the markers are available repeat laboratory tests will be done in a.m. the need to have his IV reduced to 75 cc/h Liset Guerrier MD, MD Jul 01, 2020 00:09
[2020-07-01 04:00] VITALS: BP 150/69
[2020-07-01 04:17] LABS: BASOPHILS % (AUTO) 0.7 % (0.0-2.0); EOSINOPHILS % (AUTO) 4.7 % (0.0-3.0); HEMATOCRIT 27.7 % (42.0-52.0); HEMOGLOBIN 8.6 G/DL (14.2-18.0); LYMPHOCYTES % (AUTO) 26.9 % (20.0-45.0); MEAN CORPUSCULAR VOLUME 90 FL (80-99); NEUTROPHILS % (AUTO) 61.7 % (45.0-75.0); PLATELET COUNT 267 K/UL (150-450); RED BLOOD COUNT 3.07 M/UL (4.70-6.10); RED CELL DISTRIBUTION WIDTH 14.6 % (11.6-14.8); WHITE BLOOD COUNT 6.5 K/UL (4.8-10.8)
[2020-07-01 04:48] LABS: ALANINE AMINOTRANSFERASE 30 U/L (12-78); ALBUMIN 2.7 G/DL (3.4-5.0); ALBUMIN/GLOBULIN RATIO 0.6 (1.0-2.7); ALKALINE PHOSPHATASE 58 U/L (46-116); ANION GAP 10 mmol/L (5-15); ASPARTATE AMINO TRANSFERASE 22 U/L (15-37); BILIRUBIN,TOTAL 0.8 MG/DL (0.2-1.0); BLOOD UREA NITROGEN 7 mg/dL (7-18); CALCIUM 9.1 MG/DL (8.5-10.1); CARBON DIOXIDE 23 MMOL/L (21-32); CHLORIDE 114 MMOL/L (98-107); CREATININE 0.8 MG/DL (0.55-1.30); PHOSPHORUS 2.6 MG/DL (2.5-4.9); SODIUM 147 MMOL/L (136-145)
[2020-07-01] MEDS: NovoLOG Insulin Flexpen SUBQ SCH ×3 (05:13→18:00)
--- NOTE | 2020-07-01 06:44 | NUR ---
NURSE HAND-OFF REPORT: Important Events on Shift: Need gtube feeding started and acknowledged from swamper Patient Status: Stable Diet: NPO but need feeding Pending Orders: Pending Results/Labs: Pending MD notification: Latest Vital Signs: Temperature 97.9 , Pulse 54 , B/P 150 /69 , Respiratory Rate 16 , O2 SAT 100 , Mechanical Ventilator, O2 Flow Rate 15.0 . Vital Sign Comment: EKG Rhythm: Sinus Bradycardia Rhythm change?: N MD Notified?: - MD Response: Latest Fields Fall Score: 50 Fall Risk: High Risk Safety Measures: Call light Within Reach, Bed Alarm Zone 1, Side Rails Side Rails x2, Bed position Low and Locked. Fall Precautions: Yellow Socks Yellow Gown Door Sign Patient Fall Education Report given to
--- NOTE | 2020-07-01 06:44 | Hematology/Onc Progress Note ---
Assessment/Plan Assessment/Plan Imaging: reviewed # New sclerotic osseous lesions concerning for metastases, including a 2.6 cm sclerotic lesion in the T12 vertebral body, a 2.6 cm sclerotic lesion in the left acetabulum, and a 1.3 cm sclerotic lesion in the intertrochanteric right femur. No evidence of pathologic fracture. --> Query for any history of primary malignancy (e.g. prostate cancer or other malignancies). ==> tumor markers have ordered --> PSA 52-->36 --> Bone scan --> Multiple foci of abnormal activity, as described. Given stated history of suspicion for metastatic disease, findings are suspicious for such --> consider biopsy in future, currently not critical # Anemia due to chronic disease v gi bleed, hgb downtrending since admission --> last time I saw this patient, hgb was 13.1, this was back in 2018 --> hgb trend 9-->8.1-->6.9->>>9->7.7 --> 2 units prbc for 06/24 --> iv iron x 5 days given, low sat and ferritin relative to inflammatory process # Coagulopathy is likely due to dic --> vit k as as need, ffp as well --> if worsening coagulopathy and bleeding given ffp --> at this time treatment of underlying process # Leukocytosis is likely related to underyling Pna --> also with neck abscess per surgery --> has been started on abx --> now IMPROVEd --> wbc 13 # Left lower lobe consolidation with pNA with infiltrates --> with sepsis poa, is on broad spectrum abx --> on pressors in icu on adm # Chronic cholecystitis s/p cholecystostomy tube in the past # Chronic resp failure vent/trach dependant # Asthma/COPD # HTN # Dm2 # Dementia # CVA s/p vegetative state # Dysphagia s/p G-tube # seizure disorder # SNF resident GREATLY APPRECIATE CONSULTATION. Subjective Allergies: Coded Allergies: CEFTRIAXONE (Unverified Allergy, Unknown, 06/27/20) NO KNOWN DRUG ALLERGIES (Unverified Allergy, Unknown, 06/28/15) All Systems: reviewed and negative except above Subjective 06/29 labs are noted, no bleeding, meds noted, hgb 7.7 06/30 meds noted, no bleeding, hgb/cbc is pending 07/01 nv, on vent, dressing wounds changed, labs reviewed Objective Objective Current Medications Medications (Trade) Dose Ordered Sig/Tony Route PRN Reason Start Time Stop Time Status Last Admin Dose Admin Acetaminophen (Tylenol) 650 mg Q4H PRN GT Temp >100.5 06/27/20 20:00 07/27/20 19:59 Chlorhexidine Gluconate (Kay-Hex 2%) 1 applic DAILY@2000 TOPIC 06/28/20 20:00 09/26/20 19:59 06/30/20 20:50 Dextrose 1,000 ml @ 75 mls/hr [id number] IV 06/28/20 12:45 07/28/20 12:44 06/30/20 18:22 Dextrose (Dextrose 50%) 25 ml Q30M PRN IV Hypoglycemia 06/27/20 17:00 09/25/20 16:59 Dextrose (Dextrose 50%) 50 ml Q30M PRN IV Hypoglycemia 06/27/20 17:00 09/25/20 16:59 Famotidine (Pepcid I.v.) 20 mg Q12HR IVP 06/30/20 21:00 07/30/20 20:59 06/30/20 20:50 Heparin Sodium (Porcine) (Heparin 5000 units/ml) 5,000 units EVERY 12 HOURS SUBQ 06/27/20 21:00 08/11/20 20:59 06/30/20 20:53 Insulin Aspart (NovoLOG) Q6HR SUBQ 06/27/20 18:00 09/25/20 17:59 06/30/20 23:52 Insulin Detemir (Levemir) 25 units Q12HR SUBQ 06/29/20 21:00 09/25/20 20:59 06/30/20 20:52 Ondansetron HCl (Zofran) 4 mg Q4H PRN IVP Nausea & Vomiting 06/27/20 14:45 07/27/20 14:44 Piperacillin Sod/ Tazobactam Sod 3.375 gm/Sodium Chloride 110 ml @ 27.5 mls/hr Q8HR@0000,0800,1600 IVPB 06/27/20 16:00 07/04/20 15:59 06/30/20 23:35 Vancomycin HCl 300 ml @ 150 mls/hr Q12H IVPB 06/29/20 12:15 07/04/20 12:14 06/30/20 23:35 Vancomycin HCl (Vanco pharmacy to dose) 1 ea DAILY PRN MISC Per rx protocol 06/28/20 11:00 07/28/20 10:59 Last 24 Hour Vital Signs Date Time Temp Pulse Resp B/P (MAP) Pulse Ox O2 Delivery O2 Flow Rate FiO2 07/01/20 04:00 97.9 54 16 150/69 (96) 100 07/01/20 04:00 54 07/01/20 04:00 40 07/01/20 04:00 Mechanical Ventilator 07/01/20 03:26 55 22 30 07/01/20 00:00 65 07/01/20 00:00 40 07/01/20 00:00 98.2 53 16 107/69 (82) 100 07/01/20 00:00 Mechanical Ventilator 06/30/20 22:45 59 14 30 06/30/20 20:00 40 06/30/20 20:00 Mechanical Ventilator 06/30/20 20:00 47 06/30/20 20:00 98.5 51 18 107/60 (76) 100 06/30/20 19:24 43 12 40 06/30/20 16:00 40 06/30/20 16:00 49 06/30/20 16:00 97.9 49 17 112/65 (81) 100 06/30/20 16:00 Mechanical Ventilator 06/30/20 15:47 51 21 40 06/30/20 12:00 40 06/30/20 12:00 97.9 48 13 97/58 (71) 100 06/30/20 12:00 Mechanical Ventilator 06/30/20 12:00 46 06/30/20 11:30 47 27 40 06/30/20 08:00 98.1 61 16 100/65 (77) 100 06/30/20 08:00 Mechanical Ventilator 06/30/20 08:00 40 06/30/20 08:00 50 06/30/20 07:26 55 19 40 06/30/20 04:00 40 06/30/20 04:00 98.9 56 18 114/64 (81) 100 06/30/20 04:00 62 06/30/20 04:00 Mechanical Ventilator 06/30/20 03:30 72 22 40 06/30/20 00:00 40 06/30/20 00:00 98.2 53 18 99/62 (74) 100 06/30/20 00:00 Mechanical Ventilator 06/30/20 00:00 53 06/29/20 23:05 54 20 40 06/29/20 20:30 54 17 40 06/29/20 20:00 48 06/29/20 20:00 98.8 62 16 102/68 (79) 98 06/29/20 20:00 Mechanical Ventilator 06/29/20 16:00 Mechanical Ventilator 06/29/20 16:00 54 06/29/20 16:00 98.8 62 16 102/68 (79) 98 06/29/20 16:00 40 06/29/20 13:00 54 17 40 06/29/20 12:22 52 06/29/20 12:00 40 06/29/20 12:00 97.7 66 12 117/79 (92) 100 06/29/20 12:00 Mechanical Ventilator 06/29/20 08:38 60 06/29/20 08:00 40 06/29/20 08:00 98.1 60 15 101/61 (74) 99 06/29/20 08:00 Mechanical Ventilator 06/29/20 07:05 50 14 40 Intake and Output 06/30/20 07/01/20 19:00 07:00 Intake Total 1475 ml 150 ml Output Total 1500 ml 900 ml Balance -25 ml -750 ml Intake Free Water 100 ml 150 ml IV Total 1375 ml Output Urine Total 1500 ml 900 ml Labs Test 06/29/20 05:00 06/29/20 10:56 06/30/20 03:25 06/30/20 09:50 White Blood Count 9.0 K/UL (4.8-10.8) 7.7 K/UL (4.8-10.8) Red Blood Count 2.74 M/UL (4.70-6.10) 3.24 M/UL (4.70-6.10) Hemoglobin 7.7 G/DL (14.2-18.0) 8.9 G/DL (14.2-18.0) Hematocrit 24.9 % (42.0-52.0) 29.1 % (42.0-52.0) Mean Corpuscular Volume 91 FL (80-99) 90 FL (80-99) Mean Corpuscular Hemoglobin 28.2 PG (27.0-31.0) 27.6 PG (27.0-31.0) Mean Corpuscular Hemoglobin Concent 31.0 G/DL (32.0-36.0) 30.6 G/DL (32.0-36.0) Red Cell Distribution Width 14.8 % (11.6-14.8) 14.6 % (11.6-14.8) Platelet Count 244 K/UL (150-450) 239 K/UL (150-450) Mean Platelet Volume 10.4 FL (6.5-10.1) 10.1 FL (6.5-10.1) Neutrophils (%) (Auto) % (45.0-75.0) 65.9 % (45.0-75.0) Lymphocytes (%) (Auto) % (20.0-45.0) 22.2 % (20.0-45.0) Monocytes (%) (Auto) % (1.0-10.0) 6.0 % (1.0-10.0) Eosinophils (%) (Auto) % (0.0-3.0) 5.0 % (0.0-3.0) Basophils (%) (Auto) % (0.0-2.0) 0.9 % (0.0-2.0) Differential Total Cells Counted 100 Neutrophils % (Manual) 80 % (45-75) Lymphocytes % (Manual) 11 % (20-45) Monocytes % (Manual) 4 % (1-10) Eosinophils % (Manual) 5 % (0-3) Basophils % (Manual) 0 % (0-2) Band Neutrophils 0 % (0-8) Platelet Estimate Adequate Platelet Morphology Normal Hypochromasia 1+ Anisocytosis 1+ Sodium Level 153 MMOL/L (136-145) 149 MMOL/L (136-145) Potassium Level 3.2 MMOL/L (3.5-5.1) 3.4 MMOL/L (3.5-5.1) Chloride Level 118 MMOL/L (98-107) 115 MMOL/L (98-107) Carbon Dioxide Level 25 MMOL/L (21-32) 24 MMOL/L (21-32) Anion Gap 10 mmol/L (5-15) 10 mmol/L (5-15) Blood Urea Nitrogen 14 mg/dL (7-18) 8 mg/dL (7-18) Creatinine 0.8 MG/DL (0.55-1.30) 0.9 MG/DL (0.55-1.30) Estimat Glomerular Filtration Rate > 60 mL/min (>60) > 60 mL/min (>60) Glucose Level 234 MG/DL (74-106) 215 MG/DL (74-106) Uric Acid 5.2 MG/DL (2.6-7.2) Calcium Level 8.7 MG/DL (8.5-10.1) 8.9 MG/DL (8.5-10.1) Phosphorus Level 3.0 MG/DL (2.5-4.9) 3.1 MG/DL (2.5-4.9) Magnesium Level 2.2 MG/DL (1.8-2.4) 2.0 MG/DL (1.8-2.4) Iron Level 52 ug/dL (50-175) Total Iron Binding Capacity 137 ug/dL (250-450) Percent Iron Saturation 38 % (15-50) Unsaturated Iron Binding 85 ug/dL (112-346) Ferritin 217 NG/ML (8-388) Total Bilirubin 0.7 MG/DL (0.2-1.0) 0.8 MG/DL (0.2-1.0) Aspartate Amino Transf (AST/SGOT) 24 U/L (15-37) 23 U/L (15-37) Alanine Aminotransferase (ALT/SGPT) 28 U/L (12-78) 30 U/L (12-78) Alkaline Phosphatase 56 U/L (46-116) 58 U/L (46-116) C-Reactive Protein, Quantitative 10.7 mg/dL (0.00-0.90) Pro-B-Type Natriuretic Peptide 570 pg/mL (0-125) Total Protein 6.6 G/DL (6.4-8.2) 7.0 G/DL (6.4-8.2) Albumin 2.3 G/DL (3.4-5.0) 2.6 G/DL (3.4-5.0) Globulin 4.3 g/dL 4.4 g/dL Albumin/Globulin Ratio 0.5 (1.0-2.7) 0.6 (1.0-2.7) Folate 47.2 NG/ML (8.6-58.9) Vancomycin Level Trough 13.4 ug/mL (5.0-12.0) Prostate Specific Antigen 31.61 ng/mL (0.13-4.0) Test 06/30/20 17:48 06/30/20 22:50 07/01/20 03:42 Arterial Blood pH 7.410 (7.350-7.450) Arterial Blood Partial Pressure CO2 31.8 mmHg (35.0-45.0) Arterial Blood Partial Pressure O2 146.2 mmHg (75.0-100.0) Arterial Blood HCO3 19.7 mmol/L (22.0-26.0) Arterial Blood Oxygen Saturation 98.6 % (95-100) Arterial Blood Base Excess -4.3 (-2-2) Donald Test Positive Vancomycin Level Trough 20.2 ug/mL (5.0-12.0) White Blood Count 6.5 K/UL (4.8-10.8) Red Blood Count 3.07 M/UL (4.70-6.10) Hemoglobin 8.6 G/DL (14.2-18.0) Hematocrit 27.7 % (42.0-52.0) Mean Corpuscular Volume 90 FL (80-99) Mean Corpuscular Hemoglobin 28.0 PG (27.0-31.0) Mean Corpuscular Hemoglobin Concent 31.1 G/DL (32.0-36.0) Red Cell Distribution Width 14.6 % (11.6-14.8) Platelet Count 267 K/UL (150-450) Mean Platelet Volume 9.6 FL (6.5-10.1) Neutrophils (%) (Auto) 61.7 % (45.0-75.0) Lymphocytes (%) (Auto) 26.9 % (20.0-45.0) Monocytes (%) (Auto) 6.0 % (1.0-10.0) Eosinophils (%) (Auto) 4.7 % (0.0-3.0) Basophils (%) (Auto) 0.7 % (0.0-2.0) Sodium Level 147 MMOL/L (136-145) Potassium Level 3.0 MMOL/L (3.5-5.1) Chloride Level 114 MMOL/L (98-107) Carbon Dioxide Level 23 MMOL/L (21-32) Anion Gap 10 mmol/L (5-15) Blood Urea Nitrogen 7 mg/dL (7-18) Creatinine 0.8 MG/DL (0.55-1.30) Estimat Glomerular Filtration Rate > 60 mL/min (>60) Glucose Level 132 MG/DL (74-106) Calcium Level 9.1 MG/DL (8.5-10.1) Phosphorus Level 2.6 MG/DL (2.5-4.9) Magnesium Level 2.0 MG/DL (1.8-2.4) Total Bilirubin 0.8 MG/DL (0.2-1.0) Aspartate Amino Transf (AST/SGOT) 22 U/L (15-37) Alanine Aminotransferase (ALT/SGPT) 30 U/L (12-78) Alkaline Phosphatase 58 U/L (46-116) Total Protein 7.1 G/DL (6.4-8.2) Albumin 2.7 G/DL (3.4-5.0) Globulin 4.4 g/dL Albumin/Globulin Ratio 0.6 (1.0-2.7) Height (Feet): 5 Height (Inches): 8.00 Weight (Pounds): 180 Objective Physical Exam HEENT: normocephalic, bilateral eye PERRL Neck: normal inspection, supple, tracheotomy - site c/d/i ++ vent Respiratory: chest non-tender, lungs clear, normal breath sounds, chest symmetrical, palpation of chest normal Cardiovascular : normal peripheral pulses, regular rate, rhythm Gastrointestinal: normal inspection, non tender, soft, no mass, no guarding, no rebound, ++ feeding tube c/d/i Genitourinary: normal inspection, no CVA tenderness Musculoskeletal: back normal, gait/station normal, normal range of motion, non- tender, no calf tenderness Neurologic: nonverbal Skin: normal color, no darrell GI: ++ Manolo Cervantes MD Jul 01, 2020 06:44
--- NOTE | 2020-07-01 07:30 | NUR ---
Received report from MANUEL Faustin. Pt remains in bed with trach connected to vent. Pt remains obtunded in NAD. Spoke with Transportation Solutions Manager Otf. Ok to start Glucerna 1.5 at 25 with goal 55. Pt remains on same vent settings. Bed in lowest position. Side rail x3. Will continue to monitor.
[2020-07-01 08:00] VITALS: BP 101/69
[2020-07-01] MEDS: Piperacillin/Tazobactam 3.375 GM in NS 110 ML IVPB SCH ×2 (08:16→16:48)
[2020-07-01] MEDS: Heparin 5000 units/ml inj SUBQ SCH ×2 (08:17→20:41)
[2020-07-01] MEDS: Levemir Flexpen SUBQ SCH ×2 (08:44→20:41)
--- NOTE | 2020-07-01 08:55 | Infectious Diseases Prog Note ---
Assessment/Plan 49yo M who p/w: CONS bacteremia UTI 2/2 E.coli Resp distress 2/2 LLL pneumonia Neck abscess? Eval'd by Gen Surg, serous fluid expressed, no pus Febrile to 101.1 Leukocytosis to 15, improved Lymphopenia 2/14 BCx 2/2 +CONS UA 40-60 WBC, UCx >100k E.coli, finley-S COVID PCR neg Flu neg MRSA nares neg CXR: Left basilar airspace opacity concerning for pneumonia in the appropriate clinical setting. CT A/P: 1. Left lower lobe consolidation with air bronchograms, concerning for pneumonia. Hazy opacities in the left upper lobe/lingula could represent additional areas of pneumonitis. 2. Trace bilateral pleural effusions. 3. Mild dependent atelectasis in the right lung base. 4. Left-sided nonobstructive nephrolithiasis, with at least three separate 2 mm stones. No radiodense ureteral stones identified. No hydronephrosis or hydroureter. Mild bilateral pelvic stranding. 5. 2 mm stone lying dependently in the urinary bladder lumen. 6. Luminal air-fluid levels throughout small bowel and colon without wall thickening, which may suggest mild enterocolitis and/or diarrheal disease. No evidence of bowel obstruction. 7. New sclerotic osseous lesions concerning for metastases, including a 2.6 cm sclerotic lesion in the T12 vertebral body, a 2.6 cm sclerotic lesion in the left acetabulum, and a 1.3 cm sclerotic lesion in the intertrochanteric right femur. No evidence of pathologic fracture. Query for any history of primary malignancy (e.g. prostate cancer or other malignancies). Neck CT: 1. 3.8 x 2.6 x 2.4 cm (TRV x CC x AP) subcutaneous fluid collection in the midline posterior neck soft tissues at the level of C4, highly concerning for abscess. Overlying soft tissue stranding and skin thickening. 2/ BCx NTD Resp cx +GNRs and PsA (R-Zosyn, S-saulo @4, cefepime @4) Abd US: Gallstones and gallbladder sludge. Likely gallbladder wall cholesterolosis. Negative for dilated bile ducts. Bladder wall trabeculation, l ikely indicates chronic lateral obstruction CXR: Stable or slightly increased left basilar/retrocardiac consolidation. Cr 1.2 Possible metastatic CA 2/16 NM bone scan: Findings: Abnormal activity is seen in the right left acetabulum, right femoral intertrochanteric region, L5, T12, and at least 2 ribs. Impression: Multiple foci of abnormal activity, as described. Given stated history of suspicion for metastatic disease, findings are suspicious for such. HTN Asthma COPD Persistent vegetative state CVA DM2 Chronic respiratory failure s/p trach/vent dependent Dysphagia s/p GT NH resident Plan: Cont vanco IV #5/7 given CONS bacteremia, neck ?abscess; tentative 7 day course if repeat BCx remain neg Cont empiric Zosyn #5/7 for UTI F/u repeat BCx 06/28 - NTD F/u 06/28 resp cx +GNRs, resistant PsA in results m/l colonizer and will not treat currently given stable resp status, normal WBC Malignancy w/u per primary Monitor CBC/CMP Monitor temp curve, hemodynamics Monitor resp status D/w RN Thank you for this consult. [facility] will continue to follow. Subjective Allergies: Coded Allergies: CEFTRIAXONE (Unverified Allergy, Unknown, 06/27/20) NO KNOWN DRUG ALLERGIES (Unverified Allergy, Unknown, 06/28/15) AF NAD on vent 30% PEEP 5 WBC 6.5 Objective Last 24 Hour Vital Signs Date Time Temp Pulse Resp B/P (MAP) Pulse Ox O2 Delivery O2 Flow Rate FiO2 07/01/20 04:00 97.9 54 16 150/69 (96) 100 07/01/20 04:00 54 07/01/20 04:00 40 07/01/20 04:00 Mechanical Ventilator 07/01/20 03:26 55 22 30 07/01/20 00:00 65 07/01/20 00:00 40 07/01/20 00:00 98.2 53 16 107/69 (82) 100 07/01/20 00:00 Mechanical Ventilator 06/30/20 22:45 59 14 30 06/30/20 20:00 40 06/30/20 20:00 Mechanical Ventilator 06/30/20 20:00 47 06/30/20 20:00 98.5 51 18 107/60 (76) 100 06/30/20 19:24 43 12 40 06/30/20 16:00 40 06/30/20 16:00 49 06/30/20 16:00 97.9 49 17 112/65 (81) 100 06/30/20 16:00 Mechanical Ventilator 06/30/20 15:47 51 21 40 06/30/20 12:00 40 06/30/20 12:00 97.9 48 13 97/58 (71) 100 06/30/20 12:00 Mechanical Ventilator 06/30/20 12:00 46 06/30/20 11:30 47 27 40 Height (Feet): 5 Height (Inches): 8.00 Weight (Pounds): 180 Gen: NAD HEENT: NCAT, trach Pulm: BL chest rise Abd: Non-distended, PEG Ext: No c/c/e Skin: No visible rashes Neuro: Awake but not interactive Microbiology Date/Time Source Procedure Growth Status 06/28/20 11:00 Sputum Gram Stain - Final Resulted 06/28/20 11:00 Sputum Culture - Preliminary Pseudomonas Aeruginosa Gram Negative Bacillus 2 Usual Respiratory Shraddha Resulted Laboratory Tests Test 06/30/20 09:50 06/30/20 17:48 06/30/20 22:50 07/01/20 03:42 White Blood Count 7.7 K/UL (4.8-10.8) 6.5 K/UL (4.8-10.8) Red Blood Count 3.24 M/UL (4.70-6.10) L 3.07 M/UL (4.70-6.10) L Hemoglobin 8.9 G/DL (14.2-18.0) L 8.6 G/DL (14.2-18.0) L Hematocrit 29.1 % (42.0-52.0) L 27.7 % (42.0-52.0) L Mean Corpuscular Volume 90 FL (80-99) 90 FL (80-99) Mean Corpuscular Hemoglobin 27.6 PG (27.0-31.0) 28.0 PG (27.0-31.0) Mean Corpuscular Hemoglobin Concent 30.6 G/DL (32.0-36.0) L 31.1 G/DL (32.0-36.0) L Red Cell Distribution Width 14.6 % (11.6-14.8) 14.6 % (11.6-14.8) Platelet Count 239 K/UL (150-450) 267 K/UL (150-450) Mean Platelet Volume 10.1 FL (6.5-10.1) 9.6 FL (6.5-10.1) Neutrophils (%) (Auto) 65.9 % (45.0-75.0) 61.7 % (45.0-75.0) Lymphocytes (%) (Auto) 22.2 % (20.0-45.0) 26.9 % (20.0-45.0) Monocytes (%) (Auto) 6.0 % (1.0-10.0) 6.0 % (1.0-10.0) Eosinophils (%) (Auto) 5.0 % (0.0-3.0) H 4.7 % (0.0-3.0) H Basophils (%) (Auto) 0.9 % (0.0-2.0) 0.7 % (0.0-2.0) Sodium Level 149 MMOL/L (136-145) H 147 MMOL/L (136-145) H Potassium Level 3.4 MMOL/L (3.5-5.1) L 3.0 MMOL/L (3.5-5.1) L Chloride Level 115 MMOL/L (98-107) H 114 MMOL/L (98-107) H Carbon Dioxide Level 24 MMOL/L (21-32) 23 MMOL/L (21-32) Anion Gap 10 mmol/L (5-15) 10 mmol/L (5-15) Blood Urea Nitrogen 8 mg/dL (7-18) 7 mg/dL (7-18) Creatinine 0.9 MG/DL (0.55-1.30) 0.8 MG/DL (0.55-1.30) Estimat Glomerular Filtration Rate > 60 mL/min (>60) > 60 mL/min (>60) Glucose Level 215 MG/DL (74-106) H 132 MG/DL (74-106) H Calcium Level 8.9 MG/DL (8.5-10.1) 9.1 MG/DL (8.5-10.1) Phosphorus Level 3.1 MG/DL (2.5-4.9) 2.6 MG/DL (2.5-4.9) Magnesium Level 2.0 MG/DL (1.8-2.4) 2.0 MG/DL (1.8-2.4) Total Bilirubin 0.8 MG/DL (0.2-1.0) 0.8 MG/DL (0.2-1.0) Aspartate Amino Transf (AST/SGOT) 23 U/L (15-37) 22 U/L (15-37) Alanine Aminotransferase (ALT/SGPT) 30 U/L (12-78) 30 U/L (12-78) Alkaline Phosphatase 58 U/L (46-116) 58 U/L (46-116) Total Protein 7.0 G/DL (6.4-8.2) 7.1 G/DL (6.4-8.2) Albumin 2.6 G/DL (3.4-5.0) L 2.7 G/DL (3.4-5.0) L Globulin 4.4 g/dL 4.4 g/dL Albumin/Globulin Ratio 0.6 (1.0-2.7) L 0.6 (1.0-2.7) L Arterial Blood pH 7.410 (7.350-7.450) Arterial Blood Partial Pressure CO2 31.8 mmHg (35.0-45.0) L Arterial Blood Partial Pressure O2 146.2 mmHg (75.0-100.0) H Arterial Blood HCO3 19.7 mmol/L (22.0-26.0) L Arterial Blood Oxygen Saturation 98.6 % (95-100) Arterial Blood Base Excess -4.3 (-2-2) L Donald Test Positive Vancomycin Level Trough 20.2 ug/mL (5.0-12.0) H Current Medications Medications (Trade) Dose Ordered Sig/Tony Route PRN Reason Start Time Stop Time Status Last Admin Dose Admin Acetaminophen (Tylenol) 650 mg Q4H PRN GT Temp >100.5 06/27/20 20:00 07/27/20 19:59 Chlorhexidine Gluconate (Kay-Hex 2%) 1 applic DAILY@2000 TOPIC 06/28/20 20:00 09/26/20 19:59 06/30/20 20:50 Dextrose 1,000 ml @ 75 mls/hr [id number] IV 06/28/20 12:45 07/28/20 12:44 07/01/20 08:17 Dextrose (Dextrose 50%) 25 ml Q30M PRN IV Hypoglycemia 06/27/20 17:00 09/25/20 16:59 Dextrose (Dextrose 50%) 50 ml Q30M PRN IV Hypoglycemia 06/27/20 17:00 09/25/20 16:59 Famotidine (Pepcid I.v.) 20 mg Q12HR IVP 06/30/20 21:00 07/30/20 20:59 07/01/20 08:17 Heparin Sodium (Porcine) (Heparin 5000 units/ml) 5,000 units EVERY 12 HOURS SUBQ 06/27/20 21:00 08/11/20 20:59 07/01/20 08:17 Insulin Aspart (NovoLOG) Q6HR SUBQ 06/27/20 18:00 09/25/20 17:59 06/30/20 23:52 Insulin Detemir (Levemir) 25 units Q12HR SUBQ 06/29/20 21:00 09/25/20 20:59 07/01/20 08:44 Ondansetron HCl (Zofran) 4 mg Q4H PRN IVP Nausea & Vomiting 06/27/20 14:45 07/27/20 14:44 Piperacillin Sod/ Tazobactam Sod 3.375 gm/Sodium Chloride 110 ml @ 27.5 mls/hr Q8HR@0000,0800,1600 IVPB 06/27/20 16:00 07/04/20 15:59 07/01/20 08:16 Vancomycin HCl 300 ml @ 150 mls/hr Q12H IVPB 06/29/20 12:15 07/04/20 12:14 06/30/20 23:35 Vancomycin HCl (Vanco pharmacy to dose) 1 ea DAILY PRN MISC Per rx protocol 06/28/20 11:00 07/28/20 10:59 Natalia King M.D. Jul 01, 2020 08:55
--- NOTE | 2020-07-01 10:15 | Surgery Progress Note ---
Surgery Progress Note Subjective Symptoms: improved, tolerating diet, voiding well, passing flatus Additional Comments dressings going well Objective Last 24 Hour Vital Signs Date Time Temp Pulse Resp B/P (MAP) Pulse Ox O2 Delivery O2 Flow Rate FiO2 07/01/20 04:00 97.9 54 16 150/69 (96) 100 07/01/20 04:00 54 07/01/20 04:00 40 07/01/20 04:00 Mechanical Ventilator 07/01/20 03:26 55 22 30 07/01/20 00:00 65 07/01/20 00:00 40 07/01/20 00:00 98.2 53 16 107/69 (82) 100 07/01/20 00:00 Mechanical Ventilator 06/30/20 22:45 59 14 30 06/30/20 20:00 40 06/30/20 20:00 Mechanical Ventilator 06/30/20 20:00 47 06/30/20 20:00 98.5 51 18 107/60 (76) 100 06/30/20 19:24 43 12 40 06/30/20 16:00 40 06/30/20 16:00 49 06/30/20 16:00 97.9 49 17 112/65 (81) 100 06/30/20 16:00 Mechanical Ventilator 06/30/20 15:47 51 21 40 06/30/20 12:00 40 06/30/20 12:00 97.9 48 13 97/58 (71) 100 06/30/20 12:00 Mechanical Ventilator 06/30/20 12:00 46 06/30/20 11:30 47 27 40 I&O Intake and Output 06/30/20 07/01/20 19:00 07:00 Intake Total 1475 ml 225 ml Output Total 1500 ml 900 ml Balance -25 ml -675 ml Intake Free Water 100 ml 150 ml IV Total 1375 ml 75 ml Output Urine Total 1500 ml 900 ml Dressing: saturated Wound: clean Cardiovascular: RSR Respiratory: clear Abdomen: soft, non-tender, present bowel sounds, non-distended Extremities: no tenderness, no cyanosis Laboratory Tests Test 06/30/20 12:18 06/30/20 17:24 06/30/20 17:48 06/30/20 22:50 POC Whole Blood Glucose 231 MG/DL (74-106) H 177 MG/DL (74-106) H Arterial Blood pH 7.410 (7.350-7.450) Arterial Blood Partial Pressure CO2 31.8 mmHg (35.0-45.0) L Arterial Blood Partial Pressure O2 146.2 mmHg (75.0-100.0) H Arterial Blood HCO3 19.7 mmol/L (22.0-26.0) L Arterial Blood Oxygen Saturation 98.6 % (95-100) Arterial Blood Base Excess -4.3 (-2-2) L Donald Test Positive Vancomycin Level Trough 20.2 ug/mL (5.0-12.0) H Test 06/30/20 23:50 07/01/20 03:42 07/01/20 05:08 07/01/20 08:23 POC Whole Blood Glucose 142 MG/DL (74-106) H 122 MG/DL (74-106) H 134 MG/DL (74-106) H White Blood Count 6.5 K/UL (4.8-10.8) Red Blood Count 3.07 M/UL (4.70-6.10) L Hemoglobin 8.6 G/DL (14.2-18.0) L Hematocrit 27.7 % (42.0-52.0) L Mean Corpuscular Volume 90 FL (80-99) Mean Corpuscular Hemoglobin 28.0 PG (27.0-31.0) Mean Corpuscular Hemoglobin Concent 31.1 G/DL (32.0-36.0) L Red Cell Distribution Width 14.6 % (11.6-14.8) Platelet Count 267 K/UL (150-450) Mean Platelet Volume 9.6 FL (6.5-10.1) Neutrophils (%) (Auto) 61.7 % (45.0-75.0) Lymphocytes (%) (Auto) 26.9 % (20.0-45.0) Monocytes (%) (Auto) 6.0 % (1.0-10.0) Eosinophils (%) (Auto) 4.7 % (0.0-3.0) H Basophils (%) (Auto) 0.7 % (0.0-2.0) Sodium Level 147 MMOL/L (136-145) H Potassium Level 3.0 MMOL/L (3.5-5.1) L Chloride Level 114 MMOL/L (98-107) H Carbon Dioxide Level 23 MMOL/L (21-32) Anion Gap 10 mmol/L (5-15) Blood Urea Nitrogen 7 mg/dL (7-18) Creatinine 0.8 MG/DL (0.55-1.30) Estimat Glomerular Filtration Rate > 60 mL/min (>60) Glucose Level 132 MG/DL (74-106) H Calcium Level 9.1 MG/DL (8.5-10.1) Phosphorus Level 2.6 MG/DL (2.5-4.9) Magnesium Level 2.0 MG/DL (1.8-2.4) Total Bilirubin 0.8 MG/DL (0.2-1.0) Aspartate Amino Transf (AST/SGOT) 22 U/L (15-37) Alanine Aminotransferase (ALT/SGPT) 30 U/L (12-78) Alkaline Phosphatase 58 U/L (46-116) Total Protein 7.1 G/DL (6.4-8.2) Albumin 2.7 G/DL (3.4-5.0) L Globulin 4.4 g/dL Albumin/Globulin Ratio 0.6 (1.0-2.7) L Plan Problems: (1) UTI (urinary tract infection) (2) Chronic respiratory failure (3) Acute pancreatitis (4) Hypokalemia (5) Decubitus skin ulcer Assessment & Plan: Pt presented on admission with multiple pressure injuries and Moisture Associated Skin damage Buttocks and Bilateral groin. Both earlobes including medial canals noted to have scaly red plaques and and small lesions. Full thickness stage 3 pressure injury posterior neck under collar of trach. Base of wound has 25% slough,75% beefy red .Small amt serosanguineous exudate noted. Borders are macerated. Surrounding skin is clean and dry. Moisture Associated Skin Damage noted to bilateral groin areas,Buttocks and bilateral ischium. Skin is grossly erythematous and denuded with scattered satellite lesions. Full thickness stage 3 sacral pressure injury. Base of wound is 25% necrotic ,30% slough ,otherwise beefy red with small amt serous exudate.Borders are macerated.(L)(L)8.5cm x (W)10cm. Periwound MASD. Full Thickness stage 3 pressure injury R trochanter. Base of wound 80% beefy red ,20% slough. Small amt serous exudate. Borders are macerated(L)3cm x (W)3.2cm. No odor noted.Periwound MASD. Full Thickness stage 3 pressure injury R ischium. Base of wound is 25% necrotic, beefy red with scattered slough. Borders are macerated. Small amt serous exudate noted. No odor noted.(L)5.3cm x (W)3.9cm. Periwound MASD. Full thickness stage 3 pressure injury L Ischium. Base of wound is beefy red and moist. Borders are macerated. Small amt serous exudate noted.(L)4cm x (W)3.2cm x (D)0.2cm. Both heels are pink and easily blanchable. Bilat foot drop noted. Tx.Plan: Cleanse wounds on Buttocks, sacrum, ishium, trochanter with Saline. Apply Therahoney to wounds. Apply Triad Paste periwound to cover erythematous skin. Cover with Optifoam drsgs Daily and prn. Apply Phytoplex Lotion to R and L ears daily and prn. Apply Cavilon Skin Barrier to Both heels. Cover each heel with Optifoam drsg. Change every 7 days and prn. APM/MAICOL Mattress overlay. Reposition at least every 2hours or as tolerated. Off-load heels with pillow. Place pillow between knees. (6) Electrolyte imbalance (7) Neck abscess Assessment & Plan: 49M spontaneously draining midline to left neck abscess. Patient was identified admission with CT scan to have an abscess in the left neck. On evaluation at bedside there is a 3 cm x 1 cm wide by few centimeter deep fluid collection cavity that has been drained since now with just serosanguineous fluid. Packing dressings applied. Very unfortunate. Will monitor until healing. Thank you for allowing me to participate patient's care packing and dressings going well Oropharynx: Unremarkable. No significant tonsillar enlargement. No peritonsillar abscess. Hypopharynx: Unremarkable. Larynx: Unremarkable. Normal epiglottis. Trachea: Unremarkable. Retropharyngeal space: Unremarkable. Submandibular/parotid glands: Unremarkable. Glands are normal in size. Thyroid: Unremarkable. No enlarged or calcified nodules. Bones/joints: No acute fracture. Soft tissues: 3.8 x 2.6 x 2.4 cm (TRV x CC x AP) subcutaneous fluid collection in the midline posterior neck soft tissues at the level of C4, highly concerning for abscess. Overlying soft tissue stranding and skin thickening. Vasculature: Unremarkable as visualized. Lymph nodes: Unremarkable. No lymphadenopathy. Sinuses: Partial visualization of left maxillary sinus opacification, concerning for sinusitis. Lung apices: Partial visualization of lobar consolidation throughout the left lower lobe and patchy airspace opacities in the left upper lobe, concerning for pneumonia. Tubes, lines and devices: Tracheostomy tube in place, with expected positioning. IMPRESSION: 1. 3.8 x 2.6 x 2.4 cm (TRV x CC x AP) subcutaneous fluid collection in the midline posterior neck soft tissues at the level of C4, highly concerning for abscess. Overlying soft tissue stranding and skin thickening. 2. Partial visualization of lobar consolidation throughout the left lower lobe and patchy airspace opacities in the left upper lobe, concerning for pneumonia. 3. Partial visualization of left maxillary sinus opacification, concerning for sinusitis. 4. Tracheostomy tube in place, with expected positioning. (8) HCAP (healthcare-associated pneumonia) (9) Severe anemia (10) Iron deficiency anemia (11) Ileus (12) Esophagitis (13) Gastric ulcer (14) Acute blood loss anemia (15) Hematuria (16) ATN (acute tubular necrosis) (17) Wound of sacral region Assessment & Plan: Abnormal activity is seen in the right left acetabulum, right femoral intertrochanteric region, L5, T12, and at least 2 ribs. There is a Waddell catheter, as well as evidence of some urinary incontinence. Increased facial activity is likely on the basis of sinus disease. Normal renal activity. Tracer is seen within a Waddell catheter. There is evidence of some urinary incontinence Impression: Multiple foci of abnormal activity, as described. Given stated history of suspicion for metastatic disease, findings are suspicious for such. (18) Chronic complete quadriplegia (19) COPD (chronic obstructive pulmonary disease) (20) Cholecystitis Assessment & Plan: Unremarkable inferior vena cava. Gallbladder demonstrates gallstones and tumefactive sludge. No wall thickening or pericholecystic fluid. Sonographic [place]'s sign could not be assessed, patient uncommunicative. Comet tail artifacts are seen in the gallbladder wall, likely indicating cholesterolosis. Common bile duct measures 9 mm in diameter. No intrahepatic biliary ductal dilatation. Liver normal echogenicity, no focal abnormality. Portal vein and hepatic veins are patent. Pancreas is unremarkable. The spleen cannot be visualized, due to overlying bowel gas. Left kidney measures 10.7 cm in length. Right kidney measures 11.3 cm length. Both kidneys demonstrate normal echogenicity. There is no hydronephrosis. Echogenic focus is seen in the lower pole of the right kidney, measuring 5 mm diameter. Previously demonstrated left renal echogenic focus is not well visualized. It is trabeculated. There is trace retained urine. There is a Waddell catheter. There are a few small calcifications are seen in the bladder lumen, possibly attached to the Waddell catheter. Non-aneurysmal abdominal aorta . Impression: Gallstones and gallbladder sludge. Likely gallbladder wall cholesterolosis Negative for dilated bile ducts Nonvisualized spleen due to overlying bowel gas Echogenic bilateral renal foci, probably small calculi demonstrated on recent CT scan. Bladder calculi versus encrustations about Waddell catheter Bladder wall trabeculation, likely indicates chronic lateral obstruction (21) Diabetes mellitus, type II (22) Seizure disorder (23) Cerebral vascular disease (24) Nosocomial pneumonia (25) Intractable diarrhea (26) Acute and chronic respiratory failure (27) Chronic vegetative state (28) Ventilator dependent (29) Status post tracheostomy (30) Sepsis (31) Feeding by G-tube Steve Franks Jul 01, 2020 10:14
--- NOTE | 2020-07-01 10:34 | NUR ---
CASE MANAGEMENT:REVIEW 07/01/20 SI:SEPSIS. PNA. UTI. TRACH/VENT / GTUBE DEPENDENT 98.1 50 16 100/65 100% ON VENT SUPPORT W/40% FIO2 H/H-8.6/27.7 NA+147 K-3.0 IS: IV KCL Q2HRS X2 BAGS IVF@75/HR IV VANCOMYCIN Q12 IV ZOSYN Q8HRS MIDODRINE GT TID IV PROTONIX Q12 HEPARIN SQ Q12 : STEP DOWN UNIT DCP: FROM [facility]
[2020-07-01 12:00] VITALS: BP 109/78
--- NOTE | 2020-07-01 12:41 | NUR ---
RD ASSESSMENT & RECOMMENDATIONS SEE CARE ACTIVITY FOR COMPLETE ASSESSMENT DAILY ESTIMATED NEEDS: Needs based on Critical care, wounds 76kg 22-30 kcals/kg 3680-1721 total kcals 1.25-2 g protein/kg 95-152 g total protein 25-30 mL/kg 8617-2095 total fluid mLs NUTRITION DIAGNOSIS: 1) Increased kcal/pro needs R/T wound healing as evidenced by pt admitted w/ multiple wounds per photos @ sacrum, BL buttocks, and neck, pending evaluation. 2) Swallowing difficulty R/T respiratory status as evidenced by pt trach/PEG dep for all nutritional needs. CURRENT TF:NPO ENTERAL NUTRITION RECOMMENDATIONS: Glucerna 1.5 @ 55ml/hr x 24 hrs to provide 1320ml, 1980kcal, 109g prot, 1002ml free water - As medically appropriate, initiate GLUE LINE OPERATOR TF formula of Glucerna 1.5 @ 35ml/hr c 6hrs, advance 10ml q 4-6 hrs as tolerated to goal rate - HOB over 30 degrees/ water flush 160ml q 4hrs without IVF --- current D5 @75 provides additional 306 kcal, w/ TF will provide 2286kcal, 100% est needs. ADDITIONAL RECOMMENDATIONS: 1. Maintain calibrated bed scale for accurate CBW 2. Wound healing: Add Vit C 500mg BID, Christian BID TF rec @ goal will provide 100% RDI, 3. Monitor lytes daily, replete as needed 4. Monitor BGs, need for insulin adjustment Now on TF's w/ added D5 .
[2020-07-01] MEDS: Vancomycin 1.5gm/300ml Premix IVPB SCH (13:01)
--- NOTE | 2020-07-01 13:16 | Nephrology Progress Note ---
Assessment/Plan Problem List: (1) JEFFY (acute kidney injury) (2) Chronic respiratory failure (3) Diabetes mellitus, type II (4) Sepsis (5) Ventilator dependent (6) Severe anemia Assessment Acute renal failure Dehydration Hypernatremia Sepsis, pneumonia, UTI Neck abscess Hyperglycemia Plan July 01: Labs reviewed. Abnormal electrolytes addressed. Blood pressure somewhat stable. Continue per consultants. June 30: Labs reviewed. IV fluid decreased to 75 cc an hour. Serum sodium improved. Low potassium replaced. Continue per consultants. Will stop midodrine due to bradycardia. Albumin bolus given. June 29: Labs reviewed. IV fluid increased to 125 cc an hour. Levemir dose increased to 25 units every 12 hours. Continue to monitor renal parameters. Albumin bolus repeated. June 28: Labs reviewed. Serum sodium rising. IV changed to D5W. Levemir adjusted to 20 units every 12 hours. Continue to monitor renal parameters and electrolytes. Albumin bolus given. Previously: Hydrate with half-normal saline Monitor renal parameters Midodrine Albumin bolus Monitor renal parameters and electrolytes Avoid nephrotoxic's Per orders Subjective ROS Limited/Unobtainable: Yes Objective Objective Last 24 Hour Vital Signs Date Time Temp Pulse Resp B/P (MAP) Pulse Ox O2 Delivery O2 Flow Rate FiO2 07/01/20 12:00 97.9 69 18 109/78 (88) 100 07/01/20 08:00 40 07/01/20 08:00 97.9 53 13 101/69 (80) 100 07/01/20 08:00 59 07/01/20 04:00 97.9 54 16 150/69 (96) 100 07/01/20 04:00 54 07/01/20 04:00 40 07/01/20 04:00 Mechanical Ventilator 07/01/20 03:26 55 22 30 07/01/20 00:00 65 07/01/20 00:00 40 07/01/20 00:00 98.2 53 16 107/69 (82) 100 07/01/20 00:00 Mechanical Ventilator 06/30/20 22:45 59 14 30 06/30/20 20:00 40 06/30/20 20:00 Mechanical Ventilator 06/30/20 20:00 47 06/30/20 20:00 98.5 51 18 107/60 (76) 100 06/30/20 19:24 43 12 40 06/30/20 16:00 40 06/30/20 16:00 49 06/30/20 16:00 97.9 49 17 112/65 (81) 100 06/30/20 16:00 Mechanical Ventilator 06/30/20 15:47 51 21 40 Intake and Output 06/30/20 07/01/20 19:00 07:00 Intake Total 1475 ml 225 ml Output Total 1500 ml 900 ml Balance -25 ml -675 ml Intake Free Water 100 ml 150 ml IV Total 1375 ml 75 ml Output Urine Total 1500 ml 900 ml Current Medications Medications (Trade) Dose Ordered Sig/Tony Route PRN Reason Start Time Stop Time Status Last Admin Dose Admin Acetaminophen (Tylenol) 650 mg Q4H PRN GT Temp >100.5 06/27/20 20:00 07/27/20 19:59 Chlorhexidine Gluconate (Kay-Hex 2%) 1 applic DAILY@2000 TOPIC 06/28/20 20:00 09/26/20 19:59 06/30/20 20:50 Dextrose 1,000 ml @ 75 mls/hr [id number] IV 06/28/20 12:45 07/28/20 12:44 07/01/20 08:17 Dextrose (Dextrose 50%) 25 ml Q30M PRN IV Hypoglycemia 06/27/20 17:00 09/25/20 16:59 Dextrose (Dextrose 50%) 50 ml Q30M PRN IV Hypoglycemia 06/27/20 17:00 09/25/20 16:59 Famotidine (Pepcid I.v.) 20 mg Q12HR IVP 06/30/20 21:00 07/30/20 20:59 07/01/20 08:17 Heparin Sodium (Porcine) (Heparin 5000 units/ml) 5,000 units EVERY 12 HOURS SUBQ 06/27/20 21:00 08/11/20 20:59 07/01/20 08:17 Insulin Aspart (NovoLOG) Q6HR SUBQ 06/27/20 18:00 09/25/20 17:59 07/01/20 13:03 Insulin Detemir (Levemir) 25 units Q12HR SUBQ 06/29/20 21:00 09/25/20 20:59 07/01/20 08:44 Ondansetron HCl (Zofran) 4 mg Q4H PRN IVP Nausea & Vomiting 06/27/20 14:45 07/27/20 14:44 Piperacillin Sod/ Tazobactam Sod 3.375 gm/Sodium Chloride 110 ml @ 27.5 mls/hr Q8HR@0000,0800,1600 IVPB 06/27/20 16:00 07/04/20 15:59 07/01/20 08:16 Potassium Chloride 100 ml @ 50 mls/hr Q2H IVPB 07/01/20 10:00 07/01/20 13:59 07/01/20 13:01 Vancomycin HCl 300 ml @ 150 mls/hr Q12H IVPB 06/29/20 12:15 07/04/20 12:14 07/01/20 13:01 Vancomycin HCl (Vanco pharmacy to dose) 1 ea DAILY PRN MISC Per rx protocol 06/28/20 11:00 07/28/20 10:59 Laboratory Tests 06/30/20 17:24: POC Whole Blood Glucose 177H 06/30/20 17:48: Arterial Blood pH 7.410, Arterial Blood Partial Pressure CO2 31.8L, Arterial Blood Partial Pressure O2 146.2H, Arterial Blood HCO3 19.7L, Arterial Blood Oxygen Saturation 98.6, Arterial Blood Base Excess -4.3L, Donald Test Positive 06/30/20 22:50: Vancomycin Level Trough 20.2H 06/30/20 23:50: POC Whole Blood Glucose 142H 07/01/20 03:42: White Blood Count 6.5, Red Blood Count 3.07L, Hemoglobin 8.6L, Hematocrit 27.7L, Mean Corpuscular Volume 90, Mean Corpuscular Hemoglobin 28.0, Mean Corpuscular Hemoglobin Concent 31.1L, Red Cell Distribution Width 14.6, Platelet Count 267, Mean Platelet Volume 9.6, Neutrophils (%) (Auto) 61.7, Lymphocytes (%) (Auto) 26.9, Monocytes (%) (Auto) 6.0, Eosinophils (%) (Auto) 4.7H, Basophils (%) (Auto) 0.7, Sodium Level 147H, Potassium Level 3.0L, Chloride Level 114H, Carbon Dioxide Level 23, Anion Gap 10, Blood Urea Nitrogen 7, Creatinine 0.8, Estimat Glomerular Filtration Rate > 60, Glucose Level 132H, Calcium Level 9.1, Phosphorus Level 2.6, Magnesium Level 2.0, Total Bilirubin 0.8, Aspartate Amino Transf (AST/SGOT) 22, Alanine Aminotransferase (ALT/SGPT) 30, Alkaline Phosphatase 58, Total Protein 7.1, Albumin 2.7L, Globulin 4.4, Albumin/Globulin Ratio 0.6L 07/01/20 05:08: POC Whole Blood Glucose 122H 07/01/20 08:23: POC Whole Blood Glucose 134H 07/01/20 12:56: POC Whole Blood Glucose 149H Height (Feet): 5 Height (Inches): 8.00 Weight (Pounds): 180 General Appearance: no apparent distress EENT: other Cardiovascular: bradycardia Respiratory/Chest: decreased breath sounds Abdomen: distended Ricky Green MD Jul 01, 2020 13:16
[2020-07-01 16:00] VITALS: BP 110/81
--- NOTE | 2020-07-01 18:31 | General Progress Note ---
Subjective Constitutional: Reports: no symptoms HEENT: Reports: no symptoms Cardiovascular: Reports: no symptoms Respiratory: Reports: no symptoms Gastrointestinal/Abdominal: Reports: no symptoms Genitourinary: Reports: no symptoms Neurologic/Psychiatric: Reports: no symptoms Endocrine: Reports: no symptoms Hematologic/Lymphatic: Reports: no symptoms Allergies: Coded Allergies: CEFTRIAXONE (Unverified Allergy, Unknown, 06/27/20) NO KNOWN DRUG ALLERGIES (Unverified Allergy, Unknown, 06/28/15) Objective Last 24 Hour Vital Signs Date Time Temp Pulse Resp B/P (MAP) Pulse Ox O2 Delivery O2 Flow Rate FiO2 07/01/20 16:00 74 07/01/20 16:00 30 07/01/20 16:00 97.9 69 19 110/81 (91) 99 07/01/20 16:00 Mechanical Ventilator 07/01/20 15:12 69 17 30 07/01/20 12:00 97.9 69 18 109/78 (88) 100 07/01/20 12:00 Mechanical Ventilator 07/01/20 12:00 69 07/01/20 12:00 30 07/01/20 10:55 57 17 30 07/01/20 08:00 40 07/01/20 08:00 97.9 53 13 101/69 (80) 100 07/01/20 08:00 Mechanical Ventilator 07/01/20 08:00 59 07/01/20 07:11 54 14 30 07/01/20 04:00 97.9 54 16 150/69 (96) 100 07/01/20 04:00 54 07/01/20 04:00 40 07/01/20 04:00 Mechanical Ventilator 07/01/20 03:26 55 22 30 07/01/20 00:00 65 07/01/20 00:00 40 07/01/20 00:00 98.2 53 16 107/69 (82) 100 07/01/20 00:00 Mechanical Ventilator 06/30/20 22:45 59 14 30 06/30/20 20:00 40 06/30/20 20:00 Mechanical Ventilator 06/30/20 20:00 47 06/30/20 20:00 98.5 51 18 107/60 (76) 100 06/30/20 19:24 43 12 40 Intake and Output 06/30/20 07/01/20 19:00 07:00 Intake Total 1475 ml 225 ml Output Total 1500 ml 900 ml Balance -25 ml -675 ml Intake Free Water 100 ml 150 ml IV Total 1375 ml 75 ml Output Urine Total 1500 ml 900 ml Laboratory Tests 06/30/20 22:50: Vancomycin Level Trough 20.2H 06/30/20 23:50: POC Whole Blood Glucose 142H 07/01/20 03:42: White Blood Count 6.5, Red Blood Count 3.07L, Hemoglobin 8.6L, Hematocrit 27.7L, Mean Corpuscular Volume 90, Mean Corpuscular Hemoglobin 28.0, Mean Corpuscular Hemoglobin Concent 31.1L, Red Cell Distribution Width 14.6, Platelet Count 267, Mean Platelet Volume 9.6, Neutrophils (%) (Auto) 61.7, Lymphocytes (%) (Auto) 26.9, Monocytes (%) (Auto) 6.0, Eosinophils (%) (Auto) 4.7H, Basophils (%) (Auto) 0.7, Sodium Level 147H, Potassium Level 3.0L, Chloride Level 114H, Carbon Dioxide Level 23, Anion Gap 10, Blood Urea Nitrogen 7, Creatinine 0.8, Estimat Glomerular Filtration Rate > 60, Glucose Level 132H, Calcium Level 9.1, Phosphorus Level 2.6, Magnesium Level 2.0, Total Bilirubin 0.8, Aspartate Amino Transf (AST/SGOT) 22, Alanine Aminotransferase (ALT/SGPT) 30, Alkaline Phosphata se 58, Total Protein 7.1, Albumin 2.7L, Globulin 4.4, Albumin/Globulin Ratio 0.6L 07/01/20 05:08: POC Whole Blood Glucose 122H 07/01/20 08:23: POC Whole Blood Glucose 134H 07/01/20 12:56: POC Whole Blood Glucose 149H 07/01/20 18:03: POC Whole Blood Glucose 124H Height (Feet): 5 Height (Inches): 8.00 Weight (Pounds): 180 EENT: normal ENT inspection Neck: supple Cardiovascular: normal rate, regular rhythm, no gallop/murmur, no JVD Respiratory/Chest: lungs clear, no respiratory distress, no accessory muscle use, rhonchi - bilaterally Abdomen: normal bowel sounds, non tender, soft, no organomegaly, no mass Extremities: non-tender Skin: warm/dry Assessment/Plan Status Narrative Patient is awake eyes open the there is no eye contact he is hemodynamically stable he has no leukocytosis he continues to remain on Vanco piperacillin new sputum culture revealed the patient Pseudomonas auroginosa and the second gram- negative bacillus Section gram-negative bacillus patient appears to be clinically very stable I plan to discharge the patient tomorrow in a.m. back to the [facility] care facility where he will complete his IV antibiotic Liset Wallace MD Jul 01, 2020 18:31
--- NOTE | 2020-07-01 19:10 | NUR ---
NURSE NOTES: Received patient from MANUEL Uribe under the care of Dr. Wallace for the admitting dx of small bowel obstruction. Noted Allergy to ceftriaxone and full code status. Contact isolation (for multiple organisms) and seizure precautions observed and maintained at all times. Patient noted to be non-alert with eyes open, no tracking. Tolerating Vent settings (AC-12 TV-500 FiO2-30% PEEP-5) well with no acute distress noted at this time. Will continue to monitor.
[2020-07-01 20:00] VITALS: BP 126/84
[2020-07-01] MEDS: Dyna-Hex 2% Top Sol 2oz TOPIC SCH (20:44)
--- NOTE | 2020-07-01 21:00 | NUR ---
NURSE NOTES: Patient asleep, responsive to stimuli. Tolerating vent settings well. All due meds given and tolerated well. No acute distress noted. Will continue to monitor.
[2020-07-02] VITALS: BP 127/85
--- NOTE | 2020-07-02 | NUR ---
NURSE NOTES: Patient continues to be asleep. Noted with BM. Pericare provided. Will continue to monitor.
[2020-07-02] MEDS: Vancomycin 1.5gm/300ml Premix IVPB SCH (00:47)
[2020-07-02] MEDS: Piperacillin/Tazobactam 3.375 GM in NS 110 ML IVPB SCH ×3 (00:48→16:48)
--- NOTE | 2020-07-02 03:00 | NUR ---
NURSE NOTES: Patient kept clean and dry at all times. F/C draining well. no distress noted.
[2020-07-02 04:00] VITALS: BP 90/60
--- NOTE | 2020-07-02 06:00 | NUR ---
NURSE NOTES: Patient tolerating vent settings well. No acute distress noted. Will continue to monitor
[2020-07-02] MEDS: NovoLOG Insulin Flexpen SUBQ SCH ×4 (06:16→17:22)
--- NOTE | 2020-07-02 07:25 | NUR ---
NURSE HAND-OFF REPORT: Important Events on Shift: - Patient Status: Stable Diet: GT Pending Orders: Pending Results/Labs: Pending MD notification: Latest Vital Signs: Temperature 98.9 , Pulse 71 , B/P 90 /60 , Respiratory Rate 15 , O2 SAT 100 , Mechanical Ventilator, O2 Flow Rate 15.0 . Vital Sign Comment: WNL EKG Rhythm: Sinus Rhythm Rhythm change?: N MD Notified?: N - MD Response: Latest Fields Fall Score: 50 Fall Risk: High Risk Safety Measures: Call light Within Reach, Bed Alarm Zone 1, Side Rails Side Rails x2, Bed position Low and Locked. Fall Precautions: Yellow Socks Yellow Gown Door Sign Patient Fall Education Report given to MANUEL Abdalla.
[2020-07-02 08:00] VITALS: BP 98/70
[2020-07-02] MEDS: Heparin 5000 units/ml inj SUBQ SCH ×2 (08:22→20:59)
[2020-07-02] MEDS: Levemir Flexpen SUBQ SCH ×2 (08:59→21:00)
--- NOTE | 2020-07-02 09:10 | Hematology/Onc Progress Note ---
Assessment/Plan Assessment/Plan Imaging: reviewed # New sclerotic osseous lesions concerning for metastases, including a 2.6 cm sclerotic lesion in the T12 vertebral body, a 2.6 cm sclerotic lesion in the left acetabulum, and a 1.3 cm sclerotic lesion in the intertrochanteric right femur. No evidence of pathologic fracture. --> Query for any history of primary malignancy (e.g. prostate cancer or other malignancies). ==> tumor markers have ordered --> PSA 52-->36 --> Bone scan --> Multiple foci of abnormal activity, as described. Given stated history of suspicion for metastatic disease, findings are suspicious for such --> consider biopsy in future, currently not critical --> cea 6.8 # Anemia due to chronic disease v gi bleed, hgb downtrending since admission --> last time I saw this patient, hgb was 13.1, this was back in 2018 --> hgb trend 9-->8.1-->6.9->>>9->7.7-->8 --> 2 units prbc for 06/24 --> iv iron x 5 days given, low sat and ferritin relative to inflammatory process # Coagulopathy is likely due to dic --> vit k as as need, ffp as well --> if worsening coagulopathy and bleeding given ffp --> at this time treatment of underlying process # Leukocytosis is likely related to underyling Pna --> also with neck abscess per surgery --> has been started on abx --> now IMPROVEd --> wbc 13 # Left lower lobe consolidation with pNA with infiltrates --> with sepsis poa, is on broad spectrum abx --> on pressors in icu on adm # Chronic cholecystitis s/p cholecystostomy tube in the past # Chronic resp failure vent/trach dependant # Asthma/COPD # HTN # Dm2 # Dementia # CVA s/p vegetative state # Dysphagia s/p G-tube # seizure disorder # SNF resident GREATLY APPRECIATE CONSULTATION. Subjective Constitutional: Denies: no symptoms, chills, fever, malaise, weakness, other HEENT: Denies: no symptoms, eye pain, blurred vision, tearing, double vision, ear pain, ear discharge, nose pain, nose congestion, throat pain, throat swelling, mouth pain, mouth swelling, other Respiratory: Denies: no symptoms, cough, shortness of breath, SOB with excertion, SOB at rest, sputum, wheezing, other Gastrointestinal/Abdominal: Denies: no symptoms, abdomen distended, abdominal pain, black stools, tarry stools, blood in stool, constipated, diarrhea, difficulty swallowing, nausea, poor appetite, poor fluid intake, rectal bleeding, vomiting, other Genitourinary: Denies: no symptoms, burning, discharge, frequency, flank pain, hematuria, incontinence, pain, urgency, other Neurologic/Psychiatric: Denies: no symptoms, anxiety, depressed, emotional problems, headache, numbness, paresthesia, pre-existing deficit, seizure, tingling, tremors, weakness, other Endocrine: Denies: no symptoms, excessive sweating, flushing, intolerance to cold, intolerance to heat, increased hunger, increased thirst, increased urine, unexplained weight gain, unexplained weight loss, other Allergies: Coded Allergies: CEFTRIAXONE (Unverified Allergy, Unknown, 06/27/20) NO KNOWN DRUG ALLERGIES (Unverified Allergy, Unknown, 06/28/15) Subjective 06/29 labs are noted, no bleeding, meds noted, hgb 7.7 06/30 meds noted, no bleeding, hgb/cbc is pending 07/01 nv, on vent, dressing wounds changed, labs reviewed 07/02 nv, meds noted, no bleeding, dw rn, cbc noted Objective Objective Current Medications Medications (Trade) Dose Ordered Sig/Tony Route PRN Reason Start Time Stop Time Status Last Admin Dose Admin Acetaminophen (Tylenol) 650 mg Q4H PRN GT Temp >100.5 06/27/20 20:00 07/27/20 19:59 Chlorhexidine Gluconate (Kay-Hex 2%) 1 applic DAILY@1999 TOPIC 06/28/20 20:00 09/26/20 19:59 07/01/20 20:44 Dextrose 1,000 ml @ 75 mls/hr [id number] IV 06/28/20 12:45 07/28/20 12:44 07/02/20 09:00 Dextrose (Dextrose 50%) 25 ml Q30M PRN IV Hypoglycemia 06/27/20 17:00 09/25/20 16:59 Dextrose (Dextrose 50%) 50 ml Q30M PRN IV Hypoglycemia 06/27/20 17:00 09/25/20 16:59 Famotidine (Pepcid I.v.) 20 mg Q12HR IVP 06/30/20 21:00 07/30/20 20:59 07/02/20 08:21 Heparin Sodium (Porcine) (Heparin 5000 units/ml) 5,000 units EVERY 12 HOURS SUBQ 06/27/20 21:00 08/11/20 20:59 07/02/20 08:22 Insulin Aspart (NovoLOG) Q6HR SUBQ 06/27/20 18:00 09/25/20 17:59 07/02/20 06:16 Insulin Detemir (Levemir) 25 units Q12HR SUBQ 06/29/20 21:00 09/25/20 20:59 07/02/20 08:59 Ondansetron HCl (Zofran) 4 mg Q4H PRN IVP Nausea & Vomiting 06/27/20 14:45 07/27/20 14:44 Piperacillin Sod/ Tazobactam Sod 3.375 gm/Sodium Chloride 110 ml @ 27.5 mls/hr Q8HR@0000,0800,1600 IVPB 06/27/20 16:00 07/04/20 15:59 07/02/20 08:21 Potassium Chloride (K-Dur) 20 meq TWICE A DAY GT 07/01/20 18:00 09/29/20 17:59 07/02/20 08:21 Vancomycin HCl 300 ml @ 150 mls/hr Q12H IVPB 06/29/20 12:15 07/04/20 12:14 07/02/20 00:47 Vancomycin HCl (Vanco pharmacy to dose) 1 ea DAILY PRN MISC Per rx protocol 06/28/20 11:00 07/28/20 10:59 Last 24 Hour Vital Signs Date Time Temp Pulse Resp B/P (MAP) Pulse Ox O2 Delivery O2 Flow Rate FiO2 07/02/20 04:00 Mechanical Ventilator 07/02/20 04:00 30 07/02/20 04:00 71 07/02/20 04:00 98.9 60 15 90/60 (70) 100 07/02/20 03:34 74 28 30 07/02/20 00:00 71 07/02/20 00:00 Mechanical Ventilator 07/02/20 00:00 30 07/02/20 00:00 98.6 71 24 127/85 (99) 100 07/01/20 23:06 71 20 30 07/01/20 20:00 Mechanical Ventilator 07/01/20 20:00 73 07/01/20 20:00 30 07/01/20 20:00 98.4 77 20 126/84 (98) 100 07/01/20 19:39 77 24 30 07/01/20 16:00 74 07/01/20 16:00 30 07/01/20 16:00 97.9 69 19 110/81 (91) 99 07/01/20 16:00 Mechanical Ventilator 07/01/20 15:12 69 17 30 07/01/20 12:00 97.9 69 18 109/78 (88) 100 07/01/20 12:00 Mechanical Ventilator 07/01/20 12:00 69 07/01/20 12:00 30 07/01/20 10:55 57 17 30 07/01/20 08:00 40 07/01/20 08:00 97.9 53 13 101/69 (80) 100 07/01/20 08:00 Mechanical Ventilator 07/01/20 08:00 59 07/01/20 07:11 54 14 30 07/01/20 04:00 97.9 54 16 150/69 (96) 100 07/01/20 04:00 54 07/01/20 04:00 40 07/01/20 04:00 Mechanical Ventilator 07/01/20 03:26 55 22 30 07/01/20 00:00 65 07/01/20 00:00 40 07/01/20 00:00 98.2 53 16 107/69 (82) 100 07/01/20 00:00 Mechanical Ventilator 06/30/20 22:45 59 14 30 06/30/20 20:00 40 06/30/20 20:00 Mechanical Ventilator 06/30/20 20:00 47 06/30/20 20:00 98.5 51 18 107/60 (76) 100 06/30/20 19:24 43 12 40 06/30/20 16:00 40 06/30/20 16:00 49 06/30/20 16:00 97.9 49 17 112/65 (81) 100 06/30/20 16:00 Mechanical Ventilator 06/30/20 15:47 51 21 40 06/30/20 12:00 40 06/30/20 12:00 97.9 48 13 97/58 (71) 100 06/30/20 12:00 Mechanical Ventilator 06/30/20 12:00 46 06/30/20 11:30 47 27 40 Intake and Output 07/01/20 07/02/20 19:00 07:00 Intake Total 1215 ml 540 ml Output Total 900 ml Balance 315 ml 540 ml Intake Free Water 300 ml IV Total 825 ml Tube Feeding 90 ml 540 ml Output Urine Total 900 ml # Bowel Movements 2 1 Labs Test 06/29/20 10:56 06/29/20 23:51 06/30/20 03:25 06/30/20 04:48 Vancomycin Level Trough 13.4 ug/mL (5.0-12.0) POC Whole Blood Glucose 214 MG/DL (74-106) 151 MG/DL (74-106) Alpha Fetoprotein <0.9 ng/mL (0.0-8.3) Carcinoembryonic Antigen 6.8 ng/mL (0.0-4.7) CA 19-9 Antigen 40 U/mL (0-35) Prostate Specific Antigen 31.61 ng/mL (0.13-4.0) Test 06/30/20 08:34 06/30/20 09:50 06/30/20 12:18 06/30/20 17:24 POC Whole Blood Glucose 182 MG/DL (74-106) 231 MG/DL (74-106) 177 MG/DL (74-106) White Blood Count 7.7 K/UL (4.8-10.8) Red Blood Count 3.24 M/UL (4.70-6.10) Hemoglobin 8.9 G/DL (14.2-18.0) Hematocrit 29.1 % (42.0-52.0) Mean Corpuscular Volume 90 FL (80-99) Mean Corpuscular Hemoglobin 27.6 PG (27.0-31.0) Mean Corpuscular Hemoglobin Concent 30.6 G/DL (32.0-36.0) Red Cell Distribution Width 14.6 % (11.6-14.8) Platelet Count 239 K/UL (150-450) Mean Platelet Volume 10.1 FL (6.5-10.1) Neutrophils (%) (Auto) 65.9 % (45.0-75.0) Lymphocytes (%) (Auto) 22.2 % (20.0-45.0) Monocytes (%) (Auto) 6.0 % (1.0-10.0) Eosinophils (%) (Auto) 5.0 % (0.0-3.0) Basophils (%) (Auto) 0.9 % (0.0-2.0) Sodium Level 149 MMOL/L (136-145) Potassium Level 3.4 MMOL/L (3.5-5.1) Chloride Level 115 MMOL/L (98-107) Carbon Dioxide Level 24 MMOL/L (21-32) Anion Gap 10 mmol/L (5-15) Blood Urea Nitrogen 8 mg/dL (7-18) Creatinine 0.9 MG/DL (0.55-1.30) Estimat Glomerular Filtration Rate > 60 mL/min (>60) Glucose Level 215 MG/DL (74-106) Calcium Level 8.9 MG/DL (8.5-10.1) Phosphorus Level 3.1 MG/DL (2.5-4.9) Magnesium Level 2.0 MG/DL (1.8-2.4) Total Bilirubin 0.8 MG/DL (0.2-1.0) Aspartate Amino Transf (AST/SGOT) 23 U/L (15-37) Alanine Aminotransferase (ALT/SGPT) 30 U/L (12-78) Alkaline Phosphatase 58 U/L (46-116) Total Protein 7.0 G/DL (6.4-8.2) Albumin 2.6 G/DL (3.4-5.0) Globulin 4.4 g/dL Albumin/Globulin Ratio 0.6 (1.0-2.7) Test 06/30/20 17:48 06/30/20 22:50 06/30/20 23:50 07/01/20 03:42 Arterial Blood pH 7.410 (7.350-7.450) Arterial Blood Partial Pressure CO2 31.8 mmHg (35.0-45.0) Arterial Blood Partial Pressure O2 146.2 mmHg (75.0-100.0) Arterial Blood HCO3 19.7 mmol/L (22.0-26.0) Arterial Blood Oxygen Saturation 98.6 % (95-100) Arterial Blood Base Excess -4.3 (-2-2) Donald Test Positive Vancomycin Level Trough 20.2 ug/mL (5.0-12.0) POC Whole Blood Glucose 142 MG/DL (74-106) White Blood Count 6.5 K/UL (4.8-10.8) Red Blood Count 3.07 M/UL (4.70-6.10) Hemoglobin 8.6 G/DL (14.2-18.0) Hematocrit 27.7 % (42.0-52.0) Mean Corpuscular Volume 90 FL (80-99) Mean Corpuscular Hemoglobin 28.0 PG (27.0-31.0) Mean Corpuscular Hemoglobin Concent 31.1 G/DL (32.0-36.0) Red Cell Distribution Width 14.6 % (11.6-14.8) Platelet Count 267 K/UL (150-450) Mean Platelet Volume 9.6 FL (6.5-10.1) Neutrophils (%) (Auto) 61.7 % (45.0-75.0) Lymphocytes (%) (Auto) 26.9 % (20.0-45.0) Monocytes (%) (Auto) 6.0 % (1.0-10.0) Eosinophils (%) (Auto) 4.7 % (0.0-3.0) Basophils (%) (Auto) 0.7 % (0.0-2.0) Sodium Level 147 MMOL/L (136-145) Potassium Level 3.0 MMOL/L (3.5-5.1) Chloride Level 114 MMOL/L (98-107) Carbon Dioxide Level 23 MMOL/L (21-32) Anion Gap 10 mmol/L (5-15) Blood Urea Nitrogen 7 mg/dL (7-18) Creatinine 0.8 MG/DL (0.55-1.30) Estimat Glomerular Filtration Rate > 60 mL/min (>60) Glucose Level 132 MG/DL (74-106) Calcium Level 9.1 MG/DL (8.5-10.1) Phosphorus Level 2.6 MG/DL (2.5-4.9) Magnesium Level 2.0 MG/DL (1.8-2.4) Total Bilirubin 0.8 MG/DL (0.2-1.0) Aspartate Amino Transf (AST/SGOT) 22 U/L (15-37) Alanine Aminotransferase (ALT/SGPT) 30 U/L (12-78) Alkaline Phosphatase 58 U/L (46-116) Total Protein 7.1 G/DL (6.4-8.2) Albumin 2.7 G/DL (3.4-5.0) Globulin 4.4 g/dL Albumin/Globulin Ratio 0.6 (1.0-2.7) Test 07/01/20 05:08 07/01/20 08:23 07/01/20 12:56 07/01/20 18:03 POC Whole Blood Glucose 122 MG/DL (74-106) 134 MG/DL (74-106) 149 MG/DL (74-106) 124 MG/DL (74-106) Test 07/02/20 01:11 07/02/20 08:56 POC Whole Blood Glucose 165 MG/DL (74-106) Height (Feet): 5 Height (Inches): 8.00 Weight (Pounds): 180 Objective Physical Exam HEENT: normocephalic, bilateral eye PERRL Neck: normal inspection, supple, tracheotomy - site c/d/i ++ vent Respiratory: chest non-tender, lungs clear, normal breath sounds, chest symmetrical, palpation of chest normal Cardiovascular : normal peripheral pulses, regular rate, rhythm Gastrointestinal: normal inspection, non tender, soft, no mass, no guarding, no rebound, ++ feeding tube c/d/i Genitourinary: normal inspection, no CVA tenderness Musculoskeletal: back normal, gait/station normal, normal range of motion, non-tender, no calf tenderness Neurologic: nonverbal Skin: normal color, no darrell GI: ++ Manolo Cervantes MD Jul 02, 2020 09:09
--- NOTE | 2020-07-02 10:05 | Infectious Diseases Prog Note ---
Assessment/Plan 49yo M who p/w: CONS bacteremia UTI 2/2 E.coli Resp distress, ?LLL pneumonia Neck abscess? Eval'd by Gen Surg, serous fluid expressed, no pus Febrile to 101.1 Leukocytosis to 15, improved Lymphopenia 2/14 BCx 2/2 +CONS UA 40-60 WBC, UCx >100k E.coli, finley-S COVID PCR neg Flu neg MRSA nares neg CXR: Left basilar airspace opacity concerning for pneumonia in the appropriate clinical setting. CT A/P: 1. Left lower lobe consolidation with air bronchograms, concerning for pneumonia. Hazy opacities in the left upper lobe/lingula could represent additional areas of pneumonitis. 2. Trace bilateral pleural effusions. 3. Mild dependent atelectasis in the right lung base. 4. Left-sided nonobstructive nephrolithiasis, with at least three separate 2 mm stones. No radiodense ureteral stones identified. No hydronephrosis or hydroureter. Mild bilateral pelvic stranding. 5. 2 mm stone lying dependently in the urinary bladder lumen. 6. Luminal air-fluid levels throughout small bowel and colon without wall thickening, which may suggest mild enterocolitis and/or diarrheal disease. No evidence of bowel obstruction. 7. New sclerotic osseous lesions concerning for metastases, including a 2.6 cm sclerotic lesion in the T12 vertebral body, a 2.6 cm sclerotic lesion in the left acetabulum, and a 1.3 cm sclerotic lesion in the intertrochanteric right femur. No evidence of pathologic fracture. Query for any history of primary malignancy (e.g. prostate cancer or other malignancies). Neck CT: 1. 3.8 x 2.6 x 2.4 cm (TRV x CC x AP) subcutaneous fluid collection in the midline posterior neck soft tissues at the level of C4, highly concerning for abscess. Overlying soft tissue stranding and skin thickening. 2/ BCx NTD Resp cx +ESBL Kleb pna and PsA (R-Zosyn, S-saulo @4, cefepime @4) Abd US: Gallstones and gallbladder sludge. Likely gallbladder wall cholesterolosis. Negative for dilated bile ducts. Bladder wall trabeculation, likely indicates chronic lateral obstruction CXR: Stable or slightly increased left basilar/retrocardiac consolidation. Cr 1.2 Possible metastatic CA 2/16 NM bone scan: Findings: Abnormal activity is seen in the right left acetabulum, right femoral intertrochanteric region, L5, T12, and at least 2 ribs. Impression: Multiple foci of abnormal activity, as described. Given stated history of suspicion for metastatic disease, findings are suspicious for such. HTN Asthma COPD Persistent vegetative state CVA DM2 Chronic respiratory failure s/p trach/vent dependent Dysphagia s/p GT NH resident Plan: Cont vanco IV #6/7 given CONS bacteremia, neck ?abscess Cont empiric Zosyn #6/7 for UTI On discharge please complete course of vanco/Zosyn at SNF, last day of abx to be tomorrow 07/03 Resp cx w/ resistant organisms, but given stable resp status, pt afebrile, normal WBC, will not broaden abx to treat. Malignancy w/u per primary Monitor CBC/CMP Monitor temp curve, hemodynamics Monitor resp status D/w RN Thank you for this consult. [facility] will continue to follow. Subjective Allergies: Coded Allergies: CEFTRIAXONE (Unverified Allergy, Unknown, 06/27/20) NO KNOWN DRUG ALLERGIES (Unverified Allergy, Unknown, 06/28/15) AF NAD on vent 30% PEEP 5 Possible d/c today per RN Objective Last 24 Hour Vital Signs Date Time Temp Pulse Resp B/P (MAP) Pulse Ox O2 Delivery O2 Flow Rate FiO2 07/02/20 07:10 61 14 30 07/02/20 04:00 Mechanical Ventilator 07/02/20 04:00 30 07/02/20 04:00 71 07/02/20 04:00 98.9 60 15 90/60 (70) 100 07/02/20 03:34 74 28 30 07/02/20 00:00 71 07/02/20 00:00 Mechanical Ventilator 07/02/20 00:00 30 07/02/20 00:00 98.6 71 24 127/85 (99) 100 07/01/20 23:06 71 20 30 07/01/20 20:00 Mechanical Ventilator 07/01/20 20:00 73 07/01/20 20:00 30 07/01/20 20:00 98.4 77 20 126/84 (98) 100 07/01/20 19:39 77 24 30 07/01/20 16:00 74 07/01/20 16:00 30 07/01/20 16:00 97.9 69 19 110/81 (91) 99 07/01/20 16:00 Mechanical Ventilator 07/01/20 15:12 69 17 30 07/01/20 12:00 97.9 69 18 109/78 (88) 100 07/01/20 12:00 Mechanical Ventilator 07/01/20 12:00 69 07/01/20 12:00 30 07/01/20 10:55 57 17 30 Height (Feet): 5 Height (Inches): 8.00 Weight (Pounds): 180 Gen: NAD HEENT: NCAT, trach Pulm: BL chest rise Abd: Non-distended, PEG Ext: No c/c/e Skin: No visible rashes Neuro: Awake but not interactive Laboratory Tests Test 07/01/20 12:56 07/01/20 18:03 07/02/20 01:11 07/02/20 08:56 POC Whole Blood Glucose 149 MG/DL (74-106) H 124 MG/DL (74-106) H Pending 165 MG/DL (74-106) H Current Medications Medications (Trade) Dose Ordered Sig/Tony Route PRN Reason Start Time Stop Time Status Last Admin Dose Admin Acetaminophen (Tylenol) 650 mg Q4H PRN GT Temp >100.5 06/27/20 20:00 07/27/20 19:59 Chlorhexidine Gluconate (Kay-Hex 2%) 1 applic DAILY@2000 TOPIC 06/28/20 20:00 09/26/20 19:59 07/01/20 20:44 Dextrose 1,000 ml @ 75 mls/hr [id number] IV 06/28/20 12:45 07/28/20 12:44 07/02/20 09:00 Dextrose (Dextrose 50%) 25 ml Q30M PRN IV Hypoglycemia 06/27/20 17:00 09/25/20 16:59 Dextrose (Dextrose 50%) 50 ml Q30M PRN IV Hypoglycemia 06/27/20 17:00 09/25/20 16:59 Famotidine (Pepcid I.v.) 20 mg Q12HR IVP 06/30/20 21:00 07/30/20 20:59 07/02/20 08:21 Heparin Sodium (Porcine) (Heparin 5000 units/ml) 5,000 units EVERY 12 HOURS SUBQ 06/27/20 21:00 08/11/20 20:59 07/02/20 08:22 Insulin Aspart (NovoLOG) Q6HR SUBQ 06/27/20 18:00 09/25/20 17:59 07/02/20 06:16 Insulin Detemir (Levemir) 25 units Q12HR SUBQ 06/29/20 21:00 09/25/20 20:59 07/02/20 08:59 Ondansetron HCl (Zofran) 4 mg Q4H PRN IVP Nausea & Vomiting 06/27/20 14:45 07/27/20 14:44 Piperacillin Sod/ Tazobactam Sod 3.375 gm/Sodium Chloride 110 ml @ 27.5 mls/hr Q8HR@0000,0800,1600 IVPB 06/27/20 16:00 07/04/20 15:59 07/02/20 08:21 Potassium Chloride (K-Dur) 20 meq TWICE A DAY GT 07/01/20 18:00 09/29/20 17:59 07/02/20 08:21 Vancomycin HCl 300 ml @ 150 mls/hr Q12H IVPB 06/29/20 12:15 07/04/20 12:14 07/02/20 00:47 Vancomycin HCl (Vanco pharmacy to dose) 1 ea DAILY PRN MISC Per rx protocol 06/28/20 11:00 07/28/20 10:59 Natalia King M.D. Jul 02, 2020 10:05
--- NOTE | 2020-07-02 11:23 | Surgery Progress Note ---
Surgery Progress Note Subjective Symptoms: improved, tolerating diet, voiding well, passing flatus, BM Additional Comments dressing going well wound improved Objective Last 24 Hour Vital Signs Date Time Temp Pulse Resp B/P (MAP) Pulse Ox O2 Delivery O2 Flow Rate FiO2 07/02/20 07:10 61 14 30 07/02/20 04:00 Mechanical Ventilator 07/02/20 04:00 30 07/02/20 04:00 71 07/02/20 04:00 98.9 60 15 90/60 (70) 100 07/02/20 03:34 74 28 30 07/02/20 00:00 71 07/02/20 00:00 Mechanical Ventilator 07/02/20 00:00 30 07/02/20 00:00 98.6 71 24 127/85 (99) 100 07/01/20 23:06 71 20 30 07/01/20 20:00 Mechanical Ventilator 07/01/20 20:00 73 07/01/20 20:00 30 07/01/20 20:00 98.4 77 20 126/84 (98) 100 07/01/20 19:39 77 24 30 07/01/20 16:00 74 07/01/20 16:00 30 07/01/20 16:00 97.9 69 19 110/81 (91) 99 07/01/20 16:00 Mechanical Ventilator 07/01/20 15:12 69 17 30 07/01/20 12:00 97.9 69 18 109/78 (88) 100 07/01/20 12:00 Mechanical Ventilator 07/01/20 12:00 69 07/01/20 12:00 30 I&O Intake and Output 07/01/20 07/02/20 19:00 07:00 Intake Total 1215 ml 540 ml Output Total 900 ml Balance 315 ml 540 ml Intake Free Water 300 ml IV Total 825 ml Tube Feeding 90 ml 540 ml Output Urine Total 900 ml # Bowel Movements 2 1 Dressing: dry Wound: clean Cardiovascular: RSR Respiratory: clear, decreased breath sounds Abdomen: non-tender, present bowel sounds, non-distended Extremities: no edema, no tenderness, no cyanosis Laboratory Tests Test 07/01/20 12:56 07/01/20 18:03 07/02/20 01:11 07/02/20 08:56 POC Whole Blood Glucose 149 MG/DL (74-106) H 124 MG/DL (74-106) H Pending 165 MG/DL (74-106) H Plan Problems: (1) UTI (urinary tract infection) (2) Chronic respiratory failure (3) Acute pancreatitis (4) Hypokalemia (5) Decubitus skin ulcer Assessment & Plan: Pt presented on admission with multiple pressure injuries and Moisture Associated Skin damage Buttocks and Bilateral groin. Both earlobes including medial canals noted to have scaly red plaques and and small lesions. Full thickness stage 3 pressure injury posterior neck under collar of trach. Base of wound has 25% slough,75% beefy red .Small amt serosanguineous exudate noted. Borders are macerated. Surrounding skin is clean and dry. Moisture Associated Skin Damage noted to bilateral groin areas,Buttocks and bilateral ischium. Skin is grossly erythematous and denuded with scattered satellite lesions. Full thickness stage 3 sacral pressure injury. Base of wound is 25% necrotic ,30% slough ,otherwise beefy red with small amt serous exudate.Borders are macerated.(L)(L)8.5cm x (W)10cm. Periwound MASD. Full Thickness stage 3 pressure injury R trochanter. Base of wound 80% beefy red ,20% slough. Small amt serous exudate. Borders are macerated(L)3cm x (W)3.2cm. No odor noted.Periwound MASD. Full Thickness stage 3 pressure injury R ischium. Base of wound is 25% necrotic, beefy red with scattered slough. Borders are macerated. Small amt serous exudate noted. No odor noted.(L)5.3cm x (W)3.9cm. Periwound MASD. Full thickness stage 3 pressure injury L Ischium. Base of wound is beefy red and moist. Borders are macerated. Small amt serous exudate noted.(L)4cm x (W)3.2cm x (D)0.2cm. Both heels are pink and easily blanchable. Bilat foot drop noted. Tx.Plan: Cleanse wounds on Buttocks, sacrum, ishium, trochanter with Saline. Apply Therahoney to wounds. Apply Triad Paste periwound to cover erythematous skin. Cover with Optifoam drsgs Daily and prn. Apply Phytoplex Lotion to R and L ears daily and prn. Apply Cavilon Skin Barrier to Both heels. Cover each heel with Optifoam drsg. Change every 7 days and prn. APM/MAICOL Mattress overlay. Reposition at least every 2hours or as tolerated. Off-load heels with pillow. Place pillow between knees. (6) Electrolyte imbalance (7) Neck abscess Assessment & Plan: 49M spontaneously draining midline to left neck abscess. Patient was identified admission with CT scan to have an abscess in the left n isai. On evaluation at bedside there is a 3 cm x 1 cm wide by few centimeter deep fluid collection cavity that has been drained since now with just serosanguineous fluid. Packing dressings applied. Very unfortunate. Will monitor until healing. Thank you for allowing me to participate patient's care packing and dressings going well Oropharynx: Unremarkable. No significant tonsillar enlargement. No peritonsillar abscess. Hypopharynx: Unremarkable. Larynx: Unremarkable. Normal epiglottis. Trachea: Unremarkable. Retropharyngeal space: Unremarkable. Submandibular/parotid glands: Unremarkable. Glands are normal in size. Thyroid: Unremarkable. No enlarged or calcified nodules. Bones/joints: No acute fracture. Soft tissues: 3.8 x 2.6 x 2.4 cm (TRV x CC x AP) subcutaneous fluid collection in the midline posterior neck soft tissues at the level of C4, highly concerning for abscess. Overlying soft tissue stranding and skin thickening. Vasculature: Unremarkable as visualized. Lymph nodes: Unremarkable. No lymphadenopathy. Sinuses: Partial visualization of left maxillary sinus opacification, concerning for sinusitis. Lung apices: Partial visualization of lobar consolidation throughout the left lower lobe and patchy airspace opacities in the left upper lobe, concerning for pneumonia. Tubes, lines and devices: Tracheostomy tube in place, with expected positioning. IMPRESSION: 1. 3.8 x 2.6 x 2.4 cm (TRV x CC x AP) subcutaneous fluid collection in the midline posterior neck soft tissues at the level of C4, highly concerning for abscess. Overlying soft tissue stranding and skin thickening. 2. Partial visualization of lobar consolidation throughout the left lower lobe and patchy airspace opacities in the left upper lobe, concerning for pneumonia. 3. Partial visualization of left maxillary sinus opacification, concerning for sinusitis. 4. Tracheostomy tube in place, with expected positioning. (8) HCAP (healthcare-associated pneumonia) (9) Severe anemia (10) Iron deficiency anemia (11) Ileus (12) Esophagitis (13) Gastric ulcer (14) Acute blood loss anemia (15) Hematuria (16) ATN (acute tubular necrosis) (17) Wound of sacral region Assessment & Plan: Abnormal activity is seen in the right left acetabulum, right femoral intertrochanteric region, L5, T12, and at least 2 ribs. There is a Waddell catheter, as well as evidence of some urinary incontinence. Increased facial activity is likely on the basis of sinus disease. Normal renal activity. Tracer is seen within a Waddell catheter. There is evidence of some urinary incontinence Impression: Multiple foci of abnormal activity, as described. Given stated history of suspicion for metastatic disease, findings are suspicious for such. (18) Chronic complete quadriplegia (19) COPD (chronic obstructive pulmonary disease) (20) Cholecystitis Assessment & Plan: Unremarkable inferior vena cava. Gallbladder demonstrates gallstones and tumefactive sludge. No wall thickening or pericholecystic fluid. Sonographic [place]'s sign could not be assessed, patient uncommunicative. Comet tail artifacts are seen in the gallbladder wall, likely indicating cholesterolosis. Common bile duct measures 9 mm in diameter. No intrahepatic biliary ductal dilatation. Liver normal echogenicity, no focal abnormality. Portal vein and hepatic veins are patent. Pancreas is unremarkable. The spleen cannot be visualized, due to overlying bowel gas. Left kidney measures 10.7 cm in length. Right kidney measures 11.3 cm length. Both kidneys demonstrate normal echogenicity. There is no hydronephrosis. Echogenic focus is seen in the lower pole of the right kidney, measuring 5 mm diameter. Previously demonstrated left renal echogenic focus is not well visualized. It is trabeculated. There is trace retained urine. There is a Waddell catheter. There are a few small calcifications are seen in the bladder lumen, possibly attached to the Waddell catheter. Non-aneurysmal abdominal aorta . Impression: Gallstones and gallbladder sludge. Likely gallbladder wall cholesterolosis Negative for dilated bile ducts Nonvisualized spleen due to overlying bowel gas Echogenic bilateral renal foci, probably small calculi demonstrated on recent CT scan. Bladder calculi versus encrustations about Waddell catheter Bladder wall trabeculation, likely indicates chronic lateral obstruction (21) Diabetes mellitus, type II (22) Seizure disorder (23) Cerebral vascular disease (24) Nosocomial pneumonia (25) Intractable diarrhea (26) Acute and chronic respiratory failure (27) Chronic vegetative state (28) Ventilator dependent (29) Status post tracheostomy (30) Sepsis (31) Feeding by G-tube Additional Comments d/c planning cont dressing until dry Steve Franks Jul 02, 2020 11:23
[2020-07-02 12:00] VITALS: BP 107/73
--- NOTE | 2020-07-02 12:41 | NUR ---
CASE MANAGEMENT:REVIEW 07/02/20 SI:SEPSIS. PNA. UTI. TRACH/VENT / GTUBE DEPENDENT 98.6 60 15 98/70 100% ON VENT SUPPORT W/30% FIO2 GLUCOSE+161 IS: IVF@75/HR IV VANCOMYCIN Q12 IV ZOSYN Q8HRS MIDODRINE GT TID K-DUR GT BID IV PEPCID Q12 HEPARIN SQ Q12 : STEP DOWN UNIT DCP: FROM [facility]
--- NOTE | 2020-07-02 13:06 | Nephrology Progress Note ---
Assessment/Plan Problem List: (1) JEFFY (acute kidney injury) (2) Chronic respiratory failure (3) Diabetes mellitus, type II (4) Sepsis (5) Ventilator dependent (6) Severe anemia Assessment Acute renal failure Dehydration Hypernatremia Sepsis, pneumonia, UTI Neck abscess Hyperglycemia Plan July 02: No labs drawn today. Medication list reviewed. Continue per consultants. July 01: Labs reviewed. Abnormal electrolytes addressed. Blood pressure somewhat stable. Continue per consultants. June 30: Labs reviewed. IV fluid decreased to 75 cc an hour. Serum sodium improved. Low potassium replaced. Continue per consultants. Will stop midodrine due to bradycardia. Albumin bolus given. June 29: Labs reviewed. IV fluid increased to 125 cc an hour. Levemir dose increased to 25 units every 12 hours. Continue to monitor renal parameters. Albumin bolus repeated. June 28: Labs reviewed. Serum sodium rising. IV changed to D5W. Levemir adjusted to 20 units every 12 hours. Continue to monitor renal parameters and electrolytes. Albumin bolus given. Previously: Hydrate with half-normal saline Monitor renal parameters Midodrine Albumin bolus Monitor renal parameters and electrolytes Avoid nephrotoxic's Per orders Subjective ROS Limited/Unobtainable: Yes Objective Objective Last 24 Hour Vital Signs Date Time Temp Pulse Resp B/P (MAP) Pulse Ox O2 Delivery O2 Flow Rate FiO2 07/02/20 08:00 66 07/02/20 08:00 98.6 60 15 98/70 (79) 100 07/02/20 08:00 30 07/02/20 08:00 Mechanical Ventilator 07/02/20 07:10 61 14 30 07/02/20 04:00 Mechanical Ventilator 07/02/20 04:00 30 07/02/20 04:00 71 07/02/20 04:00 98.9 60 15 90/60 (70) 100 07/02/20 03:34 74 28 30 07/02/20 00:00 71 07/02/20 00:00 Mechanical Ventilator 07/02/20 00:00 30 07/02/20 00:00 98.6 71 24 127/85 (99) 100 07/01/20 23:06 71 20 30 07/01/20 20:00 Mechanical Ventilator 07/01/20 20:00 73 07/01/20 20:00 30 07/01/20 20:00 98.4 77 20 126/84 (98) 100 07/01/20 19:39 77 24 30 07/01/20 16:00 74 07/01/20 16:00 30 07/01/20 16:00 97.9 69 19 110/81 (91) 99 07/01/20 16:00 Mechanical Ventilator 07/01/20 15:12 69 17 30 Intake and Output 07/01/20 07/02/20 19:00 07:00 Intake Total 1215 ml 615 ml Output Total 900 ml Balance 315 ml 615 ml Intake Free Water 300 ml IV Total 825 ml 75 ml Tube Feeding 90 ml 540 ml Output Urine Total 900 ml # Bowel Movements 2 1 Current Medications Medications (Trade) Dose Ordered Sig/Tony Route PRN Reason Start Time Stop Time Status Last Admin Dose Admin Acetaminophen (Tylenol) 650 mg Q4H PRN GT Temp >100.5 06/27/20 20:00 07/27/20 19:59 Chlorhexidine Gluconate (Kay-Hex 2%) 1 applic DAILY@2000 TOPIC 06/28/20 20:00 09/26/20 19:59 07/01/20 20:44 Dextrose 1,000 ml @ 75 mls/hr [id number] IV 06/28/20 12:45 07/28/20 12:44 07/02/20 09:00 Dextrose (Dextrose 50%) 25 ml Q30M PRN IV Hypoglycemia 06/27/20 17:00 09/25/20 16:59 Dextrose (Dextrose 50%) 50 ml Q30M PRN IV Hypoglycemia 06/27/20 17:00 09/25/20 16:59 Famotidine (Pepcid I.v.) 20 mg Q12HR IVP 06/30/20 21:00 07/30/20 20:59 07/02/20 08:21 Heparin Sodium (Porcine) (Heparin 5000 units/ml) 5,000 units EVERY 12 HOURS SUBQ 06/27/20 21:00 08/11/20 20:59 07/02/20 08:22 Insulin Aspart (NovoLOG) Q6HR SUBQ 06/27/20 18:00 09/25/20 17:59 07/02/20 12:15 Insulin Detemir (Levemir) 25 units Q12HR SUBQ 06/29/20 21:00 09/25/20 20:59 07/02/20 08:59 Ondansetron HCl (Zofran) 4 mg Q4H PRN IVP Nausea & Vomiting 06/27/20 14:45 07/27/20 14:44 Piperacillin Sod/ Tazobactam Sod 3.375 gm/Sodium Chloride 110 ml @ 27.5 mls/hr Q8HR@0000,0800,1600 IVPB 06/27/20 16:00 07/04/20 15:59 07/02/20 08:21 Potassium Chloride (K-Dur) 20 meq TWICE A DAY GT 07/01/20 18:00 09/29/20 17:59 07/02/20 08:21 Vancomycin HCl 250 ml @ 166.667 mls/hr Q12H IVPB 07/02/20 14:00 07/07/20 13:59 Vancomycin HCl (Vanco pharmacy to dose) 1 ea DAILY PRN MISC Per rx protocol 06/28/20 11:00 07/28/20 10:59 No CHEM panel drawn today laboratory Tests 07/01/20 18:03: POC Whole Blood Glucose 124H 07/02/20 01:11: POC Whole Blood Glucose [Pending] 07/02/20 08:56: POC Whole Blood Glucose 165H 07/02/20 11:10: Vancomycin Level Trough 21.9H 07/02/20 11:51: POC Whole Blood Glucose 161H Height (Feet): 5 Height (Inches): 8.00 Weight (Pounds): 180 General Appearance: no apparent distress Cardiovascular: normal rate Respiratory/Chest: decreased breath sounds Abdomen: distended Ricky Green MD Jul 02, 2020 13:06
--- NOTE | 2020-07-02 13:12 | NUR ---
0730: Received report from MANUEL Hernandez. Pt remains trached and ventilated. Pt remains obtunded. Pt with TF at goals. Bed in lowest position. Side rail x3. Will continue to monitor. 1000: Received a call stating Dr. Wallace would like to d/c pt and was given a number to reach him at. Called with no answer. Voicemail full. Will reattempt. 1200: Spoke with MD Fernando. Pt to receive last doses of Zosyn and Vanco tomorrow. Can recieve at facility if d/c'd before last dose. 1300: Attempted to reach Dr. Wallace again with no answer. Will reattempt again.
[2020-07-02] MEDS: Vancomycin 1.25gm/250ml Premix IVPB SCH (15:21)
[2020-07-02 16:00] VITALS: BP 105/69
[2020-07-02] MEDS ORDERED: NS 275ml ONE (16:07)
--- NOTE | 2020-07-02 17:12 | NUR ---
SANFORIZING MACHINE OPERATOR NOTES INQUIRY FAXED TO [facility]. WILL FOLLOW UP WITH ACCEPTANCE. Addendum: 07/02/20 at 1829 by ANIYAH MERIDA RN CM SPOKE WITH CATRACHO FROM [facility], UNABLE TO ACCEPT PT AT THIS TIME. PT WILL DC TOMORROW IN AM TO ROOM 10C. NURSE TO CALL REPORT TO [phone]. [facility] TO TRANSPORT WITH AN ETA OF 1000AM.
[2020-07-02 20:00] VITALS: BP 113/72
[2020-07-02] MEDS: Dyna-Hex 2% Top Sol 2oz TOPIC SCH (20:58)
--- NOTE | 2020-07-02 23:44 | Cardiology Progress Note ---
Subjective DATE OF SERVICE: Jul 02, 2020 No hypotensive episodes Remains on vent support Monitor: sinus rhythm with episodes of asymptomatic sinus bradycardia Objective Last 24 Hour Vital Signs Date Time Temp Pulse Resp B/P (MAP) Pulse Ox O2 Delivery O2 Flow Rate FiO2 07/02/20 23:01 50 16 30 07/02/20 20:00 57 07/02/20 20:00 Mechanical Ventilator 07/02/20 20:00 30 07/02/20 20:00 97.8 55 21 113/72 (86) 100 07/02/20 19:27 47 16 30 07/02/20 16:00 30 07/02/20 16:00 97.6 64 21 105/69 (81) 100 07/02/20 16:00 64 07/02/20 16:00 Mechanical Ventilator 07/02/20 15:05 64 21 30 07/02/20 15:05 64 21 96 Mechanical Ventilator 30 07/02/20 12:00 30 07/02/20 12:00 98.4 59 17 107/73 (84) 100 07/02/20 12:00 48 07/02/20 12:00 Mechanical Ventilator 07/02/20 11:05 57 17 30 07/02/20 08:00 66 07/02/20 08:00 98.6 60 15 98/70 (79) 100 07/02/20 08:00 30 07/02/20 08:00 Mechanical Ventilator 07/02/20 07:10 61 14 30 07/02/20 04:00 Mechanical Ventilator 07/02/20 04:00 30 07/02/20 04:00 71 07/02/20 04:00 98.9 60 15 90/60 (70) 100 07/02/20 03:34 74 28 30 07/02/20 00:00 71 07/02/20 00:00 Mechanical Ventilator 07/02/20 00:00 30 07/02/20 00:00 98.6 71 24 127/85 (99) 100 HEENT: normal ENT inspection, Thin Trach secretions RHYTHM: SB LUNGS: lungs clear bilaterally CARDIAC: regular rhythm, normal S1 and S2, bradycardia ABDOMEN: normal bowel sounds, soft, G-Tube intact EXTREMITIES: No edema Laboratory Tests Test 07/02/20 01:11 07/02/20 08:56 07/02/20 11:10 07/02/20 11:51 POC Whole Blood Glucose Pending 165 MG/DL (74-106) H 161 MG/DL (74-106) H Vancomycin Level Trough 21.9 ug/mL (5.0-12.0) H Test 07/02/20 17:18 07/02/20 20:52 POC Whole Blood Glucose 161 MG/DL (74-106) H Pending Assessment/Plan Assessment/Plan Asymptomatic sinus bradycardia - with underlying sinus node disease and possible increased vagal tone. No indication for pacemaker Dehydration/hypernatremia Hypokalemia Respiratory failure with trach HCA pneumonia Free water and potassium replacement Vent support Avoid meds with neg chronotropic potential Stable for subacute facility from once metabolic abnormalities corrected Xiang Majano MD Jul 02, 2020 23:44
[2020-07-03] VITALS: BP 112/73
[2020-07-03] MEDS: NovoLOG Insulin Flexpen SUBQ SCH ×3 (00:25→11:26)
[2020-07-03] MEDS: Piperacillin/Tazobactam 3.375 GM in NS 110 ML IVPB SCH ×3 (00:25→15:11)
[2020-07-03] MEDS: Vancomycin 1.25gm/250ml Premix IVPB SCH ×2 (03:19→13:29)
[2020-07-03 04:00] VITALS: BP 125/77
[2020-07-03 05:49] LABS: BASOPHILS % (AUTO) 0.6 % (0.0-2.0); EOSINOPHILS % (AUTO) 4.4 % (0.0-3.0); HEMATOCRIT 28.1 % (42.0-52.0); LYMPHOCYTES % (AUTO) 24.7 % (20.0-45.0); MEAN CORPUSCULAR VOLUME 88 FL (80-99); NEUTROPHILS % (AUTO) 64.4 % (45.0-75.0); PLATELET COUNT 279 K/UL (150-450); RED BLOOD COUNT 3.18 M/UL (4.70-6.10); RED CELL DISTRIBUTION WIDTH 14.3 % (11.6-14.8)
[2020-07-03 06:18] LABS: ALANINE AMINOTRANSFERASE 29 U/L (12-78); ALBUMIN 2.4 G/DL (3.4-5.0); ALBUMIN/GLOBULIN RATIO 0.5 (1.0-2.7); ALKALINE PHOSPHATASE 69 U/L (46-116); ANION GAP 8 mmol/L (5-15); ASPARTATE AMINO TRANSFERASE 18 U/L (15-37); BILIRUBIN,TOTAL 0.6 MG/DL (0.2-1.0); BLOOD UREA NITROGEN 10 mg/dL (7-18); CALCIUM 9.1 MG/DL (8.5-10.1); CARBON DIOXIDE 23 MMOL/L (21-32); CHLORIDE 112 MMOL/L (98-107); CREATININE 0.6 MG/DL (0.55-1.30); PHOSPHORUS 2.5 MG/DL (2.5-4.9); POTASSIUM 3.8 MMOL/L (3.5-5.1); SODIUM 143 MMOL/L (136-145)
--- NOTE | 2020-07-03 06:52 | NUR ---
DISCHARGE PLAN DISCHARGE WAS PLANNED YESTERDAY FOR TODAY CALLED [facility] AND CONFIRMED NEW ORDER CLERK ETA 1000 THIS MORNING NURSE TO CALL AND GIVE REPORT
--- NOTE | 2020-07-03 07:17 | NUR ---
RESPIRATORY NOTE: PT received stable on mechanical ventilation with current settings: AC/VC 12, 500, 30%, +5. Airway is midline, secure and patent. Vent circuit is secure and out of the way. Alarms are on and audible. No s/s of respiratory distress noted at this time. Will continue to closely monitor.
--- NOTE | 2020-07-03 07:20 | NUR ---
NURSE HAND-OFF REPORT: Important Events on Shift: Ready to be D/C Patient Status: Stable Diet: GT feed Pending Orders: Pending Results/Labs: Pending MD notification: Latest Vital Signs: Temperature 97.2 , Pulse 49 , B/P 125 /77 , Respiratory Rate 18 , O2 SAT 100 , Mechanical Ventilator, O2 Flow Rate 15.0 . Vital Sign Comment: WNL EKG Rhythm: Sinus Bradycardia Rhythm change?: Y MD Notified?: N - MD Response: Latest Fields Fall Score: 50 Fall Risk: High Risk Safety Measures: Call light Within Reach, Bed Alarm Zone 1, Side Rails Side Rails x2, Bed position Low and Locked. Fall Precautions: Yellow Socks Yellow Gown Door Sign Patient Fall Education Report given to MANUEL Reyna.
--- NOTE | 2020-07-03 07:20 | NUR ---
Received report from MANUEL Hernandez. Pt is lying in bed, obtunded, non-verbal but communicates via facial expression, no sign of acute distress. SR/SB on the entry level buyer. Tolerating vent setting setting of AC 12, TV 500, FiO2 30%, PEEP 5 with O2 sat 100%. G-tube is intact and patent running Glucerna 1.5 @ 55cc/hr. Waddell catheter is intact and patent draining light talia urine. R Femoral TLC is intact and patent. Skin issues noted and dressing intact. Recent labs, medication and MD orders noted. Pt is for discharge today. Bed is locked and in lowest position, bed alarm on. Head of bed is elevated at all times. Will continue to monitor pt. Will continue with the plan of care.
[2020-07-03 08:00] VITALS: BP 113/70
--- NOTE | 2020-07-03 08:18 | Infectious Diseases Prog Note ---
Assessment/Plan 49yo M who p/w: CONS bacteremia UTI 2/2 E.coli Resp distress, ?LLL pneumonia Neck abscess? Eval'd by Gen Surg, serous fluid expressed, no pus Febrile to 101.1 Leukocytosis to 15, improved Lymphopenia 2/14 BCx 2/2 +CONS UA 40-60 WBC, UCx >100k E.coli, finley-S COVID PCR neg Flu neg MRSA nares neg CXR: Left basilar airspace opacity concerning for pneumonia in the appropriate clinical setting. CT A/P: 1. Left lower lobe consolidation with air bronchograms, concerning for pneumonia. Hazy opacities in the left upper lobe/lingula could represent additional areas of pneumonitis. 2. Trace bilateral pleural effusions. 3. Mild dependent atelectasis in the right lung base. 4. Left-sided nonobstructive nephrolithiasis, with at least three separate 2 mm stones. No radiodense ureteral stones identified. No hydronephrosis or hydroureter. Mild bilateral pelvic stranding. 5. 2 mm stone lying dependently in the urinary bladder lumen. 6. Luminal air-fluid levels throughout small bowel and colon without wall thickening, which may suggest mild enterocolitis and/or diarrheal disease. No evidence of bowel obstruction. 7. New sclerotic osseous lesions concerning for metastases, including a 2.6 cm sclerotic lesion in the T12 vertebral body, a 2.6 cm sclerotic lesion in the left acetabulum, and a 1.3 cm sclerotic lesion in the intertrochanteric right femur. No evidence of pathologic fracture. Query for any history of primary malignancy (e.g. prostate cancer or other malignancies). Neck CT: 1. 3.8 x 2.6 x 2.4 cm (TRV x CC x AP) subcutaneous fluid collection in the midline posterior neck soft tissues at the level of C4, highly concerning for abscess. Overlying soft tissue stranding and skin thickening. 2/ BCx NTD Resp cx +ESBL Kleb pna and PsA (R-Zosyn, S-saulo @4, cefepime @4) Abd US: Gallstones and gallbladder sludge. Likely gallbladder wall cholesterolosis. Negative for dilated bile ducts. Bladder wall trabeculation, likely indicates chronic lateral obstruction CXR: Stable or slightly increased left basilar/retrocardiac consolidation. Cr 1.2 Possible metastatic CA 2/16 NM bone scan: Findings: Abnormal activity is seen in the right left acetabulum, right femoral intertrochanteric region, L5, T12, and at least 2 ribs. Impression: Multiple foci of abnormal activity, as described. Given stated history of suspicion for metastatic disease, findings are suspicious for such. HTN Asthma COPD Persistent vegetative state CVA DM2 Chronic respiratory failure s/p trach/vent dependent Dysphagia s/p [facility] resident Plan: Cont vanco IV #6/7 given CONS bacteremia, neck ?abscess Cont empiric Zosyn #6/7 for UTI On discharge please complete course of vanco/Zosyn at SNF, last day of abx to be tomorrow 07/03 Resp cx w/ resistant organisms, but given stable resp status, pt afebrile, normal WBC, will not broaden abx to treat. Malignancy w/u per primary Monitor CBC/CMP Monitor temp curve, hemodynamics Monitor resp status D/w RN Thank you for this consult. [facility] will continue to follow. Subjective Allergies: Coded Allergies: CEFTRIAXONE (Unverified Allergy, Unknown, 06/27/20) NO KNOWN DRUG ALLERGIES (Unverified Allergy, Unknown, 06/28/15) Afebrile No Leukocytosis Stable on Vent 30% O2 No following Objective Last 24 Hour Vital Signs Date Time Temp Pulse Resp B/P (MAP) Pulse Ox O2 Delivery O2 Flow Rate FiO2 07/03/20 04:00 30 07/03/20 04:00 97.2 55 18 125/77 (93) 100 07/03/20 04:00 Mechanical Ventilator 07/03/20 04:00 49 07/03/20 03:40 55 18 30 07/03/20 00:00 98.6 66 18 112/73 (86) 100 07/03/20 00:00 63 07/03/20 00:00 Mechanical Ventilator 07/02/20 23:01 50 16 30 07/02/20 20:00 57 07/02/20 20:00 Mechanical Ventilator 07/02/20 20:00 30 07/02/20 20:00 97.8 55 21 113/72 (86) 100 07/02/20 19:27 47 16 30 07/02/20 16:00 30 07/02/20 16:00 97.6 64 21 105/69 (81) 100 07/02/20 16:00 64 07/02/20 16:00 Mechanical Ventilator 07/02/20 15:05 64 21 30 07/02/20 15:05 64 21 96 Mechanical Ventilator 30 07/02/20 12:00 30 07/02/20 12:00 98.4 59 17 107/73 (84) 100 07/02/20 12:00 48 07/02/20 12:00 Mechanical Ventilator 07/02/20 11:05 57 17 30 Height (Feet): 5 Height (Inches): 8.00 Weight (Pounds): 180 Gen: NAD HEENT: NCAT, trach Pulm: BL chest rise Abd: Non-distended, PEG Ext: No c/c/e Skin: No visible rashes Laboratory Tests Test 07/02/20 08:56 07/02/20 11:10 07/02/20 11:51 07/02/20 17:18 POC Whole Blood Glucose 165 MG/DL (74-106) H 161 MG/DL (74-106) H 161 MG/DL (74-106) H Vancomycin Level Trough 21.9 ug/mL (5.0-12.0) H Test 07/02/20 20:52 07/03/20 00:23 07/03/20 04:00 07/03/20 05:43 POC Whole Blood Glucose Pending 161 MG/DL (74-106) H Pending White Blood Count 7.0 K/UL (4.8-10.8) Red Blood Count 3.18 M/UL (4.70-6.10) L Hemoglobin 9.0 G/DL (14.2-18.0) L Hematocrit 28.1 % (42.0-52.0) L Mean Corpuscular Volume 88 FL (80-99) Mean Corpuscular Hemoglobin 28.5 PG (27.0-31.0) Mean Corpuscular Hemoglobin Concent 32.2 G/DL (32.0-36.0) Red Cell Distribution Width 14.3 % (11.6-14.8) Platelet Count 279 K/UL (150-450) Mean Platelet Volume 9.7 FL (6.5-10.1) Neutrophils (%) (Auto) 64.4 % (45.0-75.0) Lymphocytes (%) (Auto) 24.7 % (20.0-45.0) Monocytes (%) (Auto) 6.0 % (1.0-10.0) Eosinophils (%) (Auto) 4.4 % (0.0-3.0) H Basophils (%) (Auto) 0.6 % (0.0-2.0) Sodium Level 143 MMOL/L (136-145) Potassium Level 3.8 MMOL/L (3.5-5.1) Chloride Level 112 MMOL/L (98-107) H Carbon Dioxide Level 23 MMOL/L (21-32) Anion Gap 8 mmol/L (5-15) Blood Urea Nitrogen 10 mg/dL (7-18) Creatinine 0.6 MG/DL (0.55-1.30) Estimat Glomerular Filtration Rate > 60 mL/min (>60) Glucose Level 162 MG/DL (74-106) H Calcium Level 9.1 MG/DL (8.5-10.1) Phosphorus Level 2.5 MG/DL (2.5-4.9) Magnesium Level 1.9 MG/DL (1.8-2.4) Total Bilirubin 0.6 MG/DL (0.2-1.0) Aspartate Amino Transf (AST/SGOT) 18 U/L (15-37) Alanine Aminotransferase (ALT/SGPT) 29 U/L (12-78) Alkaline Phosphatase 69 U/L (46-116) C-Reactive Protein, Quantitative 1.6 mg/dL (0.00-0.90) H Pro-B-Type Natriuretic Peptide 703 pg/mL (0-125) H Total Protein 6.8 G/DL (6.4-8.2) Albumin 2.4 G/DL (3.4-5.0) L Globulin 4.4 g/dL Albumin/Globulin Ratio 0.5 (1.0-2.7) L Current Medications Medications (Trade) Dose Ordered Sig/Tony Route PRN Reason Start Time Stop Time Status Last Admin Dose Admin Acetaminophen (Tylenol) 650 mg Q4H PRN GT Temp >100.5 06/27/20 20:00 07/27/20 19:59 Chlorhexidine Gluconate (Kay-Hex 2%) 1 applic DAILY@2000 TOPIC 06/28/20 20:00 09/26/20 19:59 07/02/20 20:58 Dextrose 1,000 ml @ 75 mls/hr [id number] IV 06/28/20 12:45 07/28/20 12:44 07/03/20 00:26 Dextrose (Dextrose 50%) 25 ml Q30M PRN IV Hypoglycemia 06/27/20 17:00 09/25/20 16:59 Dextrose (Dextrose 50%) 50 ml Q30M PRN IV Hypoglycemia 06/27/20 17:00 09/25/20 16:59 Famotidine (Pepcid I.v.) 20 mg Q12HR IVP 06/30/20 21:00 07/30/20 20:59 07/02/20 20:58 Heparin Sodium (Porcine) (Heparin 5000 units/ml) 5,000 units EVERY 12 HOURS SUBQ 06/27/20 21:00 08/11/20 20:59 07/02/20 20:59 Insulin Aspart (NovoLOG) Q6HR SUBQ 06/27/20 18:00 09/25/20 17:59 07/03/20 05:52 Insulin Detemir (Levemir) 25 units Q12HR SUBQ 06/29/20 21:00 09/25/20 20:59 07/02/20 21:00 Ondansetron HCl (Zofran) 4 mg Q4H PRN IVP Nausea & Vomiting 06/27/20 14:45 07/27/20 14:44 Piperacillin Sod/ Tazobactam Sod 3.375 gm/Sodium Chloride 110 ml @ 27.5 mls/hr Q8HR@0000,0800,1600 IVPB 06/27/20 16:00 07/04/20 15:59 07/03/20 00:25 Potassium Chloride (K-Dur) 20 meq TWICE A DAY GT 07/01/20 18:00 09/29/20 17:59 07/02/20 17:20 Vancomycin HCl 250 ml @ 166.667 mls/hr Q12H IVPB 07/02/20 14:00 07/07/20 13:59 07/03/20 03:19 Vancomycin HCl (Vanco pharmacy to dose) 1 ea DAILY PRN MISC Per rx protocol 06/28/20 11:00 07/28/20 10:59 Xiang Kwon MD Jul 03, 2020 08:18
[2020-07-03] MEDS: Heparin 5000 units/ml inj SUBQ SCH (08:46)
[2020-07-03] MEDS: Levemir Flexpen SUBQ SCH (09:15)
--- NOTE | 2020-07-03 10:04 | Surgery Progress Note ---
Surgery Progress Note Subjective Symptoms: improved Additional Comments d/c plan today Objective Last 24 Hour Vital Signs Date Time Temp Pulse Resp B/P (MAP) Pulse Ox O2 Delivery O2 Flow Rate FiO2 07/03/20 07:17 63 15 30 07/03/20 04:00 30 07/03/20 04:00 97.2 55 18 125/77 (93) 100 07/03/20 04:00 Mechanical Ventilator 07/03/20 04:00 49 07/03/20 03:40 55 18 30 07/03/20 00:00 98.6 66 18 112/73 (86) 100 07/03/20 00:00 63 07/03/20 00:00 Mechanical Ventilator 07/02/20 23:01 50 16 30 07/02/20 20:00 57 07/02/20 20:00 Mechanical Ventilator 07/02/20 20:00 30 07/02/20 20:00 97.8 55 21 113/72 (86) 100 07/02/20 19:27 47 16 30 07/02/20 16:00 30 07/02/20 16:00 97.6 64 21 105/69 (81) 100 07/02/20 16:00 64 07/02/20 16:00 Mechanical Ventilator 07/02/20 15:05 64 21 30 07/02/20 15:05 64 21 96 Mechanical Ventilator 30 07/02/20 12:00 30 07/02/20 12:00 98.4 59 17 107/73 (84) 100 07/02/20 12:00 48 07/02/20 12:00 Mechanical Ventilator 07/02/20 11:05 57 17 30 I&O Intake and Output 07/02/20 07/03/20 19:00 07:00 Intake Total 1910 ml 1875.000 ml Balance 1910 ml 1875.000 ml Intake Free Water 300 ml 250 ml IV Total 900 ml 1075.000 ml Tube Feeding 110 ml 550 ml Other 600 ml Dressing: dry Wound: clean Cardiovascular: RSR Respiratory: clear Abdomen: soft, flat, non-tender, present bowel sounds, non-distended Extremities: no edema, no tenderness, no cyanosis Laboratory Tests Test 07/02/20 11:10 07/02/20 11:51 07/02/20 17:18 07/02/20 20:52 Vancomycin Level Trough 21.9 ug/mL (5.0-12.0) H POC Whole Blood Glucose 161 MG/DL (74-106) H 161 MG/DL (74-106) H Pending Test 07/03/20 00:23 07/03/20 04:00 07/03/20 05:43 07/03/20 09:01 POC Whole Blood Glucose 161 MG/DL (74-106) H Pending 153 MG/DL (74-106) H White Blood Count 7.0 K/UL (4.8-10.8) Red Blood Count 3.18 M/UL (4.70-6.10) L Hemoglobin 9.0 G/DL (14.2-18.0) L Hematocrit 28.1 % (42.0-52.0) L Mean Corpuscular Volume 88 FL (80-99) Mean Corpuscular Hemoglobin 28.5 PG (27.0-31.0) Mean Corpuscular Hemoglobin Concent 32.2 G/DL (32.0-36.0) Red Cell Distribution Width 14.3 % (11.6-14.8) Platelet Count 279 K/UL (150-450) Mean Platelet Volume 9.7 FL (6.5-10.1) Neutrophils (%) (Auto) 64.4 % (45.0-75.0) Lymphocytes (%) (Auto) 24.7 % (20.0-45.0) Monocytes (%) (Auto) 6.0 % (1.0-10.0) Eosinophils (%) (Auto) 4.4 % (0.0-3.0) H Basophils (%) (Auto) 0.6 % (0.0-2.0) Sodium Level 143 MMOL/L (136-145) Potassium Level 3.8 MMOL/L (3.5-5.1) Chloride Level 112 MMOL/L (98-107) H Carbon Dioxide Level 23 MMOL/L (21-32) Anion Gap 8 mmol/L (5-15) Blood Urea Nitrogen 10 mg/dL (7-18) Creatinine 0.6 MG/DL (0.55-1.30) Estimat Glomerular Filtration Rate > 60 mL/min (>60) Glucose Level 162 MG/DL (74-106) H Calcium Level 9.1 MG/DL (8.5-10.1) Phosphorus Level 2.5 MG/DL (2.5-4.9) Magnesium Level 1.9 MG/DL (1.8-2.4) Total Bilirubin 0.6 MG/DL (0.2-1.0) Aspartate Amino Transf (AST/SGOT) 18 U/L (15-37) Alanine Aminotransferase (ALT/SGPT) 29 U/L (12-78) Alkaline Phosphatase 69 U/L (46-116) C-Reactive Protein, Quantitative 1.6 mg/dL (0.00-0.90) H Pro-B-Type Natriuretic Peptide 703 pg/mL (0-125) H Total Protein 6.8 G/DL (6.4-8.2) Albumin 2.4 G/DL (3.4-5.0) L Globulin 4.4 g/dL Albumin/Globulin Ratio 0.5 (1.0-2.7) L Plan Problems: (1) UTI (urinary tract infection) (2) Chronic respiratory failure (3) Acute pancreatitis (4) Hypokalemia (5) Decubitus skin ulcer Assessment & Plan: Pt presented on admission with multiple pressure injuries and Moisture Associated Skin damage Buttocks and Bilateral groin. Both earlobes including medial canals noted to have scaly red plaques and and small lesions. Full thickness stage 3 pressure injury posterior neck under collar of trach. Base of wound has 25% slough,75% beefy red .Small amt serosanguineous exudate noted. Borders are macerated. Surrounding skin is clean and dry. Moisture Associated Skin Damage noted to bilateral groin areas,Buttocks and bilateral ischium. Skin is grossly erythematous and denuded with scattered satellite lesions. Full thickness stage 3 sacral pressure injury. Base of wound is 25% necrotic ,30% slough ,otherwise beefy red with small amt serous exudate.Borders are macerated.(L)(L)8.5cm x (W)10cm. Periwound MASD. Full Thickness stage 3 pressure injury R trochanter. Base of wound 80% beefy red ,20% slough. Small amt serous exudate. Borders are macerated(L)3cm x (W)3.2cm. No odor noted.Periwound MASD. Full Thickness stage 3 pressure injury R ischium. Base of wound is 25% necrotic, beefy red with scattered slough. Borders are macerated. Small amt serous exudate noted. No odor noted.(L)5.3cm x (W)3.9cm. Periwound MASD. Full thickness stage 3 pressure injury L Ischium. Base of wound is beefy red and moist. Borders are macerated. Small amt serous exudate noted.(L)4cm x (W)3.2cm x (D)0.2cm. Both heels are pink and easily blanchable. Bilat foot drop noted. Tx.Plan: Cleanse wounds on Buttocks, sacrum, ishium, trochanter with Saline. Apply Therahoney to wounds. Apply Triad Paste periwound to cover erythematous skin. Cover with Optifoam drsgs Daily and prn. Apply Phytoplex Lotion to R and L ears daily and prn. Apply Cavilon Skin Barrier to Both heels. Cover each heel with Optifoam drsg. Change every 7 days and prn. APM/MAICOL Mattress overlay. Reposition at least every 2hours or as tolerated. Off-load heels with pillow. Place pillow between knees. (6) Electrolyte imbalance (7) Neck abscess Assessment & Plan: 49M spontaneously draining midline to left neck abscess. Patient was identified admission with CT scan to have an abscess in the left neck. On evaluation at bedside there is a 3 cm x 1 cm wide by few centimeter deep fluid collection cavity that has been drained since now with just serosanguineous fluid. Packing dressings applied. Very unfortunate. Will monitor until healing. Thank you for allowing me to participate patient's care packing and dressings going well Oropharynx: Unremarkable. No significant tonsillar enlargement. No peritonsillar abscess. Hypopharynx: Unremarkable. Larynx: Unremarkable. Normal epiglottis. Trachea: Unremarkable. Retropharyngeal space: Unremarkable. Submandibular/parotid glands: Unremarkable. Glands are normal in size. Thyroid: Unremarkable. No enlarged or calcified nodules. Bones/joints: No acute fracture. Soft tissues: 3.8 x 2.6 x 2.4 cm (TRV x CC x AP) subcutaneous fluid collection in the midline posterior neck soft tissues at the level of C4, highly concerning for abscess. Overlying soft tissue stranding and skin thickening. Vasculature: Unremarkable as visualized. Lymph nodes: Unremarkable. No lymphadenopathy. Sinuses: Partial visualization of left maxillary sinus opacification, concerning for sinusitis. Lung apices: Partial visualization of lobar consolidation throughout the left lower lobe and patchy airspace opacities in the left upper lobe, concerning for pneumonia. Tubes, lines and devices: Tracheostomy tube in place, with expected positioning. IMPRESSION: 1. 3.8 x 2.6 x 2.4 cm (TRV x CC x AP) subcutaneous fluid collection in the midline posterior neck soft tissues at the level of C4, highly concerning for abscess. Overlying soft tissue stranding and skin thickening. 2. Partial visualization of lobar consolidation throughout the left lower lobe and patchy airspace opacities in the left upper lobe, concerning for pneumonia. 3. Partial visualization of left maxillary sinus opacification, concerning for sinusitis. 4. Tracheostomy tube in place, with expected positioning. (8) HCAP (healthcare-associated pneumonia) (9) Severe anemia (10) Iron deficiency anemia (11) Ileus (12) Esophagitis (13) Gastric ulcer (14) Acute blood loss anemia (15) Hematuria (16) ATN (acute tubular necrosis) (17) Wound of sacral region Assessment & Plan: Abnormal activity is seen in the right left acetabulum, right femoral intertrochanteric region, L5, T12, and at least 2 ribs. There is a Waddell cat heter, as well as evidence of some urinary incontinence. Increased facial activity is likely on the basis of sinus disease. Normal renal activity. Tracer is seen within a Waddell catheter. There is evidence of some urinary incontinence Impression: Multiple foci of abnormal activity, as described. Given stated history of suspicion for metastatic disease, findings are suspicious for such. (18) Chronic complete quadriplegia (19) COPD (chronic obstructive pulmonary disease) (20) Cholecystitis Assessment & Plan: Unremarkable inferior vena cava. Gallbladder demonstrates gallstones and tumefactive sludge. No wall thickening or pericholecystic fluid. Sonographic [place]'s sign could not be assessed, patient uncommunicative. Comet tail artifacts are seen in the gallbladder wall, likely indicating cholesterolosis. Common bile duct measures 9 mm in diameter. No intrahepatic biliary ductal dilatation. Liver normal echogenicity, no focal abnormality. Portal vein and hepatic veins are patent. Pancreas is unremarkable. The spleen cannot be visualized, due to overlying bowel gas. Left kidney measures 10.7 cm in length. Right kidney measures 11.3 cm length. Both kidneys demonstrate normal echogenicity. There is no hydronephrosis. Echogenic focus is seen in the lower pole of the right kidney, measuring 5 mm diameter. Previously demonstrated left renal echogenic focus is not well visualized. It is trabeculated. There is trace retained urine. There is a Waddell catheter. There are a few small calcifications are seen in the bladder lumen, possibly attached to the Waddell catheter. Non-aneurysmal abdominal aorta . Impression: Gallstones and gallbladder sludge. Likely gallbladder wall cholesterolosis Negative for dilated bile ducts Nonvisualized spleen due to overlying bowel gas Echogenic bilateral renal foci, probably small calculi demonstrated on recent CT scan. Bladder calculi versus encrustations about Waddell catheter Bladder wall trabeculation, likely indicates chronic lateral obstruction (21) Diabetes mellitus, type II (22) Seizure disorder (23) Cerebral vascular disease (24) Nosocomial pneumonia (25) Intractable diarrhea (26) Acute and chronic respiratory failure (27) Chronic vegetative state (28) Ventilator dependent (29) Status post tracheostomy (30) Sepsis (31) Feeding by G-tube Steve Franks Jul 03, 2020 10:04
--- NOTE | 2020-07-03 11:00 | NUR ---
NURSE NOTES: Dr. Kwon saw the pt bedside, showed him the rashes in pt's bilateral wrist. Dr. Kwon ruled out scabies, and noted the rash maybe moisture related.
[2020-07-03 12:00] VITALS: BP 124/76
--- NOTE | 2020-07-03 12:39 | Nephrology Progress Note ---
Assessment/Plan Problem List: (1) JEFFY (acute kidney injury) (2) Chronic respiratory failure (3) Diabetes mellitus, type II (4) Sepsis (5) Ventilator dependent (6) Severe anemia Assessment Acute renal failure Dehydration Hypernatremia Sepsis, pneumonia, UTI Neck abscess Hyperglycemia Plan July 03: Labs reviewed. Renal parameters stable. Continue per consultants. July 02: No labs drawn today. Medication list reviewed. Continue per consultants. July 01: Labs reviewed. Abnormal electrolytes addressed. Blood pressure somewhat stable. Continue per consultants. June 30: Labs reviewed. IV fluid decreased to 75 cc an hour. Serum sodium improved. Low potassium replaced. Continue per consultants. Will stop midodrine due to bradycardia. Albumin bolus given. June 29: Labs reviewed. IV fluid increased to 125 cc an hour. Levemir dose increased to 25 units every 12 hours. Continue to monitor renal parameters. Al bumin bolus repeated. June 28: Labs reviewed. Serum sodium rising. IV changed to D5W. Levemir adjusted to 20 units every 12 hours. Continue to monitor renal parameters and electrolytes. Albumin bolus given. Previously: Hydrate with half-normal saline Monitor renal parameters Midodrine Albumin bolus Monitor renal parameters and electrolytes Avoid nephrotoxic's Per orders Subjective ROS Limited/Unobtainable: Yes Objective Objective Last 24 Hour Vital Signs Date Time Temp Pulse Resp B/P (MAP) Pulse Ox O2 Delivery O2 Flow Rate FiO2 07/03/20 12:00 Mechanical Ventilator 07/03/20 11:24 60 20 30 07/03/20 08:00 59 07/03/20 08:00 97.3 59 20 113/70 (84) 100 07/03/20 08:00 Mechanical Ventilator 07/03/20 08:00 30 07/03/20 07:17 63 15 30 07/03/20 04:00 30 07/03/20 04:00 97.2 55 18 125/77 (93) 100 07/03/20 04:00 Mechanical Ventilator 07/03/20 04:00 49 07/03/20 03:40 55 18 30 07/03/20 00:00 98.6 66 18 112/73 (86) 100 07/03/20 00:00 63 07/03/20 00:00 Mechanical Ventilator 07/02/20 23:01 50 16 30 07/02/20 20:00 57 07/02/20 20:00 Mechanical Ventilator 07/02/20 20:00 30 07/02/20 20:00 97.8 55 21 113/72 (86) 100 07/02/20 19:27 47 16 30 07/02/20 16:00 30 07/02/20 16:00 97.6 64 21 105/69 (81) 100 07/02/20 16:00 64 07/02/20 16:00 Mechanical Ventilator 07/02/20 15:05 64 21 30 07/02/20 15:05 64 21 96 Mechanical Ventilator 30 Intake and Output 07/02/20 07/03/20 19:00 07:00 Intake Total 1910 ml 1875.000 ml Balance 1910 ml 1875.000 ml Intake Free Water 300 ml 250 ml IV Total 900 ml 1075.000 ml Tube Feeding 110 ml 550 ml Other 600 ml Current Medications Medications (Trade) Dose Ordered Sig/Tony Route PRN Reason Start Time Stop Time Status Last Admin Dose Admin Acetaminophen (Tylenol) 650 mg Q4H PRN GT Temp >100.5 06/27/20 20:00 07/27/20 19:59 Chlorhexidine Gluconate (Kay-Hex 2%) 1 applic DAILY@2000 TOPIC 06/28/20 20:00 09/26/20 19:59 07/02/20 20:58 Dextrose 1,000 ml @ 75 mls/hr [id number] IV 06/28/20 12:45 07/28/20 12:44 07/03/20 00:26 Dextrose (Dextrose 50%) 25 ml Q30M PRN IV Hypoglycemia 06/27/20 17:00 09/25/20 16:59 Dextrose (Dextrose 50%) 50 ml Q30M PRN IV Hypoglycemia 06/27/20 17:00 09/25/20 16:59 Famotidine (Pepcid I.v.) 20 mg Q12HR IVP 06/30/20 21:00 07/30/20 20:59 07/03/20 08:46 Heparin Sodium (Porcine) (Heparin 5000 units/ml) 5,000 units EVERY 12 HOURS SUBQ 06/27/20 21:00 08/11/20 20:59 07/03/20 08:46 Insulin Aspart (NovoLOG) Q6HR SUBQ 06/27/20 18:00 09/25/20 17:59 07/03/20 11:26 Insulin Detemir (Levemir) 25 units Q12HR SUBQ 06/29/20 21:00 09/25/20 20:59 07/03/20 09:15 Ondansetron HCl (Zofran) 4 mg Q4H PRN IVP Nausea & Vomiting 06/27/20 14:45 07/27/20 14:44 Piperacillin Sod/ Tazobactam Sod 3.375 gm/Sodium Chloride 110 ml @ 27.5 mls/hr Q8HR@0000,0800,1600 IVPB 06/27/20 16:00 07/04/20 15:59 07/03/20 08:44 Potassium Chloride (K-Dur) 20 meq TWICE A DAY GT 07/01/20 18:00 09/29/20 17:59 07/03/20 08:45 Vancomycin HCl 250 ml @ 166.667 mls/hr Q12H IVPB 07/02/20 14:00 07/07/20 13:59 07/03/20 03:19 Vancomycin HCl ([facility] pharmacy to dose) 1 ea DAILY PRN MISC Per rx protocol 06/28/20 11:00 07/28/20 10:59 Laboratory Tests 07/02/20 17:18: POC Whole Blood Glucose 161H 07/02/20 20:52: POC Whole Blood Glucose [Pending] 07/03/20 00:23: POC Whole Blood Glucose 161H 07/03/20 04:00: White Blood Count 7.0, Red Blood Count 3.18L, Hemoglobin 9.0L, Hematocrit 28.1L, Mean Corpuscular Volume 88, Mean Corpuscular Hemoglobin 28.5, Mean Corpuscular Hemoglobin Concent 32.2, Red Cell Distribution Width 14.3, Platelet Count 279, Mean Platelet Volume 9.7, Neutrophils (%) (Auto) 64.4, Lymphocytes (%) (Auto) 24.7, Monocytes (%) (Auto) 6.0, Eosinophils (%) (Auto) 4.4H, Basophils (%) (Auto) 0.6, Sodium Level 143, Potassium Level 3.8, Chloride Level 112H, Carbon Dioxide Level 23, Anion Gap 8, Blood Urea Nitrogen 10, Creatinine 0.6, Estimat Glomerular Filtration Rate > 60, Glucose Level 162H, Calcium Level 9.1, Phosphorus Level 2.5, Magnesium Level 1.9, Total Bilirubin 0.6, Aspartate Amino Transf (AST/SGOT) 18, Alanine Aminotransferase (ALT/SGPT) 29, Alkaline Phosphatase 69, C-Reactive Protein, Quantitative 1.6H, Pro-B-Type Natriuretic Peptide 703H, Total Protein 6.8, Albumin 2.4L, Globulin 4.4, Albumin/Globulin Ratio 0.5L 07/03/20 05:43: POC Whole Blood Glucose [Pending] 07/03/20 09:01: POC Whole Blood Glucose 153H 07/03/20 11:23: POC Whole Blood Glucose 167H Height (Feet): 5 Height (Inches): 8.00 Weight (Pounds): 180 General Appearance: no apparent distress EENT: other - Trached and vent Cardiovascular: normal rate Respiratory/Chest: decreased breath sounds Abdomen: distended Ricky Green MD Jul 03, 2020 12:39
--- NOTE | 2020-07-03 12:55 | NUR ---
NURSE NOTES: Called and left message with son, Bong TolbertAsya Vicente informing him that pt will be discharge to [facility] in the afternoon.
--- NOTE | 2020-07-03 15:30 | NUR ---
NURSE NOTES: Gave report to Stacey Gamboa RN. Awaiting ambulance pharmacy picking tech at 1630.
[2020-07-03 16:00] VITALS: BP 117/88
--- NOTE | 2020-07-03 16:37 | NUR ---
NURSE NOTES: Gave report to [facility] ambulance personnel. Pt is tolerating vent setting with O2 saturation 97-100% Vital signs as follows: BP 117/88, HR 63, Temp 97.3 G-tube intact and patent. Site where PICC line was removed (right femoral) has no bleeding. Endorsed plan of care.
--- NOTE | 2020-07-03 16:56 | Cardiology Progress Note ---
Subjective DATE OF SERVICE: Jul 03, 2020 No hypotensive episodes Remains on vent support Monitor: sinus rhythm with episodes of asymptomatic sinus bradycardia Heart rates in 55-65 range. Objective Last 24 Hour Vital Signs Date Time Temp Pulse Resp B/P (MAP) Pulse Ox O2 Delivery O2 Flow Rate FiO2 07/03/20 16:00 97.3 63 18 117/88 (98) 97 07/03/20 16:00 Mechanical Ventilator 07/03/20 16:00 30 07/03/20 14:50 56 20 30 07/03/20 12:00 97.0 56 20 124/76 (92) 98 07/03/20 12:00 Mechanical Ventilator 07/03/20 12:00 57 07/03/20 12:00 30 07/03/20 11:24 60 20 30 07/03/20 08:00 59 07/03/20 08:00 97.3 59 20 113/70 (84) 100 07/03/20 08:00 Mechanical Ventilator 07/03/20 08:00 30 07/03/20 07:17 63 15 30 07/03/20 04:00 30 07/03/20 04:00 97.2 55 18 125/77 (93) 100 07/03/20 04:00 Mechanical Ventilator 07/03/20 04:00 49 07/03/20 03:40 55 18 30 07/03/20 00:00 98.6 66 18 112/73 (86) 100 07/03/20 00:00 63 07/03/20 00:00 Mechanical Ventilator 07/02/20 23:01 50 16 30 07/02/20 20:00 57 07/02/20 20:00 Mechanical Ventilator 07/02/20 20:00 30 07/02/20 20:00 97.8 55 21 113/72 (86) 100 07/02/20 19:27 47 16 30 HEENT: normal ENT inspection, Thin Trach secretions RHYTHM: SB LUNGS: lungs clear bilaterally CARDIAC: regular rhythm, normal S1 and S2, bradycardia ABDOMEN: normal bowel sounds, soft, G-Tube intact EXTREMITIES: No edema Laboratory Tests Test 07/02/20 17:18 07/02/20 20:52 07/03/20 00:23 07/03/20 04:00 POC Whole Blood Glucose 161 MG/DL (74-106) H Pending 161 MG/DL (74-106) H White Blood Count 7.0 K/UL (4.8-10.8) Red Blood Count 3.18 M/UL (4.70-6.10) L Hemoglobin 9.0 G/DL (14.2-18.0) L Hematocrit 28.1 % (42.0-52.0) L Mean Corpuscular Volume 88 FL (80-99) Mean Corpuscular Hemoglobin 28.5 PG (27.0-31.0) Mean Corpuscular Hemoglobin Concent 32.2 G/DL (32.0-36.0) Red Cell Distribution Width 14.3 % (11.6-14.8) Platelet Count 279 K/UL (150-450) Mean Platelet Volume 9.7 FL (6.5-10.1) Neutrophils (%) (Auto) 64.4 % (45.0-75.0) Lymphocytes (%) (Auto) 24.7 % (20.0-45.0) Monocytes (%) (Auto) 6.0 % (1.0-10.0) Eosinophils (%) (Auto) 4.4 % (0.0-3.0) H Basophils (%) (Auto) 0.6 % (0.0-2.0) Sodium Level 143 MMOL/L (136-145) Potassium Level 3.8 MMOL/L (3.5-5.1) Chloride Level 112 MMOL/L (98-107) H Carbon Dioxide Level 23 MMOL/L (21-32) Anion Gap 8 mmol/L (5-15) Blood Urea Nitrogen 10 mg/dL (7-18) Creatinine 0.6 MG/DL (0.55-1.30) Estimat Glomerular Filtration Rate > 60 mL/min (>60) Glucose Level 162 MG/DL (74-106) H Calcium Level 9.1 MG/DL (8.5-10.1) Phosphorus Level 2.5 MG/DL (2.5-4.9) Magnesium Level 1.9 MG/DL (1.8-2.4) Total Bilirubin 0.6 MG/DL (0.2-1.0) Aspartate Amino Transf (AST/SGOT) 18 U/L (15-37) Alanine Aminotransferase (ALT/SGPT) 29 U/L (12-78) Alkaline Phosphatase 69 U/L (46-116) C-Reactive Protein, Quantitative 1.6 mg/dL (0.00-0.90) H Pro-B-Type Natriuretic Peptide 703 pg/mL (0-125) H Total Protein 6.8 G/DL (6.4-8.2) Albumin 2.4 G/DL (3.4-5.0) L Globulin 4.4 g/dL Albumin/Globulin Ratio 0.5 (1.0-2.7) L Test 07/03/20 05:43 07/03/20 09:01 07/03/20 11:23 POC Whole Blood Glucose Pending 153 MG/DL (74-106) H 167 MG/DL (74-106) H Assessment/Plan Assessment/Plan Asymptomatic sinus bradycardia - with underlying sinus node disease and possible increased vagal tone. No indication for pacemaker Dehydration/hypernatremia Hypokalemia Respiratory failure with trach HCA pneumonia Free water and potassium replacement Vent support Avoid meds with neg chronotropic potential Stable for subacute facility from once metabolic abnormalities corrected Xiang Majano MD Jul 03, 2020 16:56
--- NOTE | 2020-07-03 17:00 | NUR ---
NURSE NOTES: Pt left the unit with the ambulance personnel in stable condition.
== END 2020-07-03 17:00 | DRG 720 ==
LOC: EDBD 05:00 → EMR 05:11 → 2W 06:04 → EDBEDREQ 08:34 → EDBEDREQSVC 08:34 → EDBEDREQ 10:37
PROC: 5A1955Z Respiratory Ventilation, Greater than 96 Consecutive Hours (ICD-10-PCS; principal; 2020-06-27)
PROC: 06HM33Z Insertion of Infusion Device into Right Femoral Vein, Percutaneous Approach (ICD-10-PCS; 2020-06-27)
DX: A41.9 Sepsis, unspecified organism (principal); L89.153 Pressure ulcer of sacral region, stage 3; L89.223 Pressure ulcer of left hip, stage 3; L89.213 Pressure ulcer of right hip, stage 3; L02.11 Cutaneous abscess of neck; J18.9 Pneumonia, unspecified organism; J96.10 Chronic respiratory failure, unspecified whether with hypoxia or hypercapnia; Z99.11 Dependence on respirator [ventilator] status; N17.9 Acute kidney failure, unspecified; R65.20 Severe sepsis without septic shock; J44.0 Chronic obstructive pulmonary disease with (acute) lower respiratory infection; Z86.73 Personal history of transient ischemic attack (TIA), and cerebral infarction without residual deficits; K85.90 Acute pancreatitis without necrosis or infection, unspecified; G40.909 Epilepsy, unspecified, not intractable, without status epilepticus; E11.65 Type 2 diabetes mellitus with hyperglycemia; I10 Essential (primary) hypertension; E78.5 Hyperlipidemia, unspecified; T83.511A Infection and inflammatory reaction due to indwelling urethral catheter, initial encounter; N39.0 Urinary tract infection, site not specified; B96.20 Unspecified Escherichia coli [E. coli] as the cause of diseases classified elsewhere; Z93.0 Tracheostomy status; Z93.1 Gastrostomy status; R13.10 Dysphagia, unspecified; E87.6 Hypokalemia; R40.3 Persistent vegetative state; E87.0 Hyperosmolality and hypernatremia; E86.0 Dehydration; D64.9 Anemia, unspecified; D68.9 Coagulation defect, unspecified; F03.90 Unspecified dementia, unspecified severity, without behavioral disturbance, psychotic disturbance, mood disturbance, and anxiety; D72.810 Lymphocytopenia; M89.9 Disorder of bone, unspecified; K81.1 Chronic cholecystitis; Z20.822 Contact with and (suspected) exposure to COVID-19; R00.1 Bradycardia, unspecified; Z74.01 Bed confinement status
CPT/HCPCS: 36415; 70491; 71045; 74018; 74176; 76700; 78306; 80053; 80061; 80202; 81003; 82105; 82150; 82306; 82378; 82533; 82550; 82553; 82607; 82728; 82746; 82803; 82962; 82977; 83036; 83540; 83550; 83605; 83615; 83690; 83735; 83880; 84100; 84153; 84443; 84484; 84550; 85007; 85025; 85610; 85651; 85730; 86140; 86710; 87040; 87070; 87081; 87086; 87181; 87205; 93005; 94002; 94003; 96361; 96365; 96367; 96375; 99291; J1815; J7030; J8499; S5561